=== PATIENT | female | born 1970 | race Caucasian/White ===

== ENCOUNTER → 2020-04-12 15:32 | Outpatient (CLI) | payer OTHER, SELFPAY ==
--- NOTE | 2020-04-12 15:49 | CT_ITS ---
STUDY: CT BRAIN WITHOUT CONTRAST REASON FOR EXAM: Female, 49 years old. MIGRAINE RADIATION DOSAGE (If Supplied By Facility): CTDIvol = ( 44.99 ) mGy, DLP = ( 779.24 ) mGycm TECHNIQUE: Transaxial CT imaging of the brain was performed without administration of intravenous contrast material. Individualized dose optimization techniques were used for this CT. COMPARISON: No relevant priors. FINDINGS: Normal soft tissue structures. Normal calvarium. Normal size ventricles and extra-axial spaces for the patient''s age. Normal white matter tracts of the cerebral hemispheres. Normal basal ganglia and thalami. Normal brainstem. Normal cerebellum. There is no intracranial hemorrhage. There are no findings of an acute ischemic infarction. Normal visualized paranasal sinuses. CT/Brain/Head without Contrast IMPRESSION: Normal unenhanced CT scan of the brain. Electronically Signed: Michael Jamison, at 16:28 EDT Tel , Service support ,
== END ==
PROVIDERS: Referring Provider Psychiatry & Neurology Neurology; Visit Provider Psychiatry & Neurology Neurology
DX: G43.009 Migraine without aura, not intractable, without status migrainosus (principal)
CPT/HCPCS: 70450

== ENCOUNTER 2021-12-20 12:01 | Outpatient (CLI) | payer OTHER, SELFPAY ==
--- NOTE | 2021-12-20 12:08 | MRI_ITS ---
HISTORY: bile duct dilation; please compare to u/s images from outside facility EXAMINATION: MR MRCP and MRI abdomen W/O Contrast TECHNIQUE: Multiplanar and multisequence MR images of the abdomen were obtained with MRCP sequence. Three-dimensional post-processing reconstructions were performed. IV Contrast dosage and agent: None COMPARISON: Right upper quadrant ultrasound 11/17/2021 FINDINGS: LIVER: No mass. Normal morphology. Mild proximal periportal smooth intrahepatic biliary dilatation. GALLBLADDER AND BILIARY TREE: No gallstones. No gallbladder distension or wall edema. The extrahepatic CBD measures 10 mm at the lópez hepatis with smooth distal tapering. No choledochal filling defect . Cystic duct insertion difficult to appreciate, possibly low inserting on series 12 image 10 PANCREAS: No mass. No pancreatic duct dilation. SPLEEN: Non-enlarged. ADRENAL GLANDS: No nodules. KIDNEYS: Normal renal size and position. No hydronephrosis. No mass. LYMPH NODES: No enlarged periportal or retroperitoneal lymph nodes. PERITONEUM: No ascites or fluid collection. VESSELS: Aorta is non-dilated. LOWER CHEST: No pleural effusion. MRI/MRCP Abdomen without Contrast IMPRESSION: Nonspecific intra-and extrahepatic biliary dilatation without choledocolithiasis or noncontrast evidence to suggest obstructing mass. Common bile duct narrows as it passes between the duodenum and pancreatic parenchyma into the pancreatic segment. This is of unknown significance. Correlate with biliary labs for evidence of obstruction. Possible low inserting cystic duct. at 0703 Reported and signed by: Cade Woodard MD Electronically Signed: Cade Woodard MD at 7:02 EST ,
== END 2021-12-20 23:59 | disposition home or self-care (01) ==
PROVIDERS: PCP Student in an Organized Health Care Education/Training Program; Referring Provider Internal Medicine Gastroenterology; Visit Provider Internal Medicine Gastroenterology
DX: K83.8 Other specified diseases of biliary tract (principal); K31.84 Gastroparesis; Z12.11 Encounter for screening for malignant neoplasm of colon
CPT/HCPCS: 74181

== ENCOUNTER 2022-01-02 11:18 | Day surgery (SDC) | payer OTHER, SELFPAY ==
--- NOTE | 2022-01-02 | COLBX_PTH ---
PATIENT: KORI SHEPHERD LOC: EN U#:[id number] AGE/SX: 51/F ROOM: RE01/02/[address]: Dr. Juan Curtis DO : 1970 BED: DIS: 01/02/2022 SPEC #: [id number] RECD: 01/03/22 10:04 STATUS: SANDEEP JORJE #: [id number] SALOME: 01/02/22 00:[address]: Juan Curtis DEPT: SURGICAL PATHOLOGY RECD BY: Dewayne Guy ENTERED: 01/03/22 10:06 SP TYPE: COLON BX OTHR DR: Dr. Migue Silveira DO Tissues: A - Duodenum, NOS B - Gastric mucous membrane C - Esophageal mucous membrane D - Sigmoid colon biopsy E - Ileum, NOS F - COLON BIOPSY Procedures: Surgery Specimen Level IV HEADER OPERATION: Colonoscopy, EGD ([facility]), biopsy, polyp PRE-OP DIAGNOSIS: Gastroparesis, screening, common bile duct dilatation TISSUE SUBMITTED: A ? Duodenum biopsy, B ? Antrum polyp biopsy, H. pylori and path, C ? Random esophagus, D ? Sigmoid polyp, E ? Terminal ileum biopsy, F ? Random colonic biopsy MICROSCOPIC DIAGNOSIS A. Duodenum, biopsy: Fragments of duodenal mucosa, no pathologic diagnosis. B. Antrum polyp, biopsy: Mild gastritis. See microscopic description and comment. C. Esophagus, biopsy: Fragments of squamous epithelium with changes consistent with gastroesophageal reflux disease, acute and chronic inflammation. D. Sigmoid polyp, biopsy: Tubular adenoma. E. Terminal ileum, biopsy: A fragment of small intestinal mucosa, no pathologic diagnosis. F. Colon, random biopsy: Fragments of colonic mucosa, no pathologic diagnosis. SJ:diandra 01/04/2022 COMMENT B. The results of immunohistochemistry for Helicobacter pylori will be reported separately ([id number]). MICROSCOPIC DESCRIPTION Slides are reviewed. B. The specimen shows fragments of gastric mucosa with chronic inflammatory cell infiltrates in the lamina propria consisting of lymphocytes and plasma cells, consistent with mild chronic gastritis. Focal mucosal congestion is noted. GROSS DESCRIPTION A - Received in fixative is one container labeled with the patient's name and designated duodenum biopsy. The specimen consists of multiple irregular fragments of light foster soft tissue that in aggregate measure 0.6 x 0.6 x 0.1 cm. The specimen is totally submitted in one cassette. B - Received in fixative is one container labeled with the patient's name and designated antrum biopsy. The specimen consists of two irregular fragments of light foster soft tissue that in aggregate measure 0.8 x 0.3 x 0.1 cm. The specimen is totally submitted in one cassette. C - Received in fixative is one container labeled with the patient's name and designated random esophagus. The specimen consists of multiple irregular fragments of light foster soft tissue that in aggregate measure 1 x 0.5 x 0.1 cm. The specimen is totally submitted in one cassette. D - Received in fixative is one container labeled with the patient's name and designated sigmoid polyp. The specimen consists of a piece of foster-pink polyp measuring 0.3 x 0.3 x 0.3 cm. The specimen is totally submitted in one cassette. E - Received in fixative is one container labeled with the patient's name and designated terminal ileum biopsy. The specimen consists of one irregular fragment of light foster soft tissue that measures 0.5 x 0.3 x 0.1 cm. The specimen is totally submitted in one cassette. F - Received in fixative is one container labeled with the patient's name and designated random colon biopsy. The specimen consists of multiple irregular fragments of light foster soft tissue that in aggregate measure 2 x 0.5 x 0.1 cm. The specimen is totally submitted in one cassette. / SJ:rg 01/03/2022 TC:1 CPT: 56774 x6
--- NOTE | 2022-01-02 11:44 | PCM.HP.BLA ---
History and Physical Date of Admission: 01/02/22 KORI SHEPHERD, is a 51 F who presents to the office today for nausea and abdominal pain. She has very poorly controlled diabetes mellitus on insulin at this time. Her last hemoglobin A1c was 11. Prior to that it was 10.4. She says her blood sugars usually range around 4 500. She took her blood sugar this morning and it was 350. 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 She says that she has stage III chronic kidney disease. She has no underlying heart disease that she knows off. She does take an aspirin on a daily basis. At this time she says that she has a funny taste in her mouth. She also says nothing taste the same. She says that she had a gastric emptying study in the past. However she does not know whether she was diagnosed with diabetic gastroparesis. She denies any chest pain or shortness of breath. She complains of a lot of nausea. She had an ultrasound of the right upper quadrant and it showed a common bile duct diameter size of 1 cm in the setting of a normal gallbladder. Reports eating food and becoming nauseous after a few bites; this has been going on for several years but has gotten worse in the last two months. Taking Prilosec 40mg QD for several years. She has difficulty with constipation with some times the duration being one-two weeks ED presentation recently due to pain. Xray of abdomen 08.28.21 for lower abdominal pain and constipation found nonobstructive bowel gas pattern. US abdomen 11.17.21 found common duct dilation at 10mm at lópez hepatis and remain dilated into distal portion. Remained of study without abnormality. Additional medical history includes DM II with neuropathy, hematuria, depression, bipolar disorder, HTN, osteoarthritis, thyromegaly, systolic ejection murmur. ROS Gastro GI: Positive for abdominal pain, bloating, change in bowel habits, nausea/dyspepsia and vomiting Exam Const General: cooperative and comfortable Nutritional Appearance: average body habitus and well nourished [facility] Head: normal to inspection Ears: hearing grossly normal bilaterally Nose: external nose normal Face and sinus: normal facial exam Mouth: oral mucosae normal Throat: posterior oropharynx normal Eyes General: appearance normal, both eyes and all related structures Neck Neck: normal visual inspection Chest Chest palpation & inspection: normal inspection of the chest and normal palpation of entire chest wall Resp Effort & Inspection: normal respiratory effort Auscultation: Bilateral: Clear to Auscultation Cardio Palpation: normal PMI Rate: regular rate Rhythm: regular rhythm GI Inspection: normal to inspection Auscultation: normal bowel sounds Percussion: normal to percussion Palpation: no hepatosplenomegaly Skin General: no rashes or lesions noted Neuro General: patient alert Extrem General: normal to inspection Psych Affect: normal affect Quality Reporting Tobacco Screening ([facility] 138) Smoking Status: Never smoker Assessment and Plan Assessment and Plan (1) Gastroparesis: Status: Acute Plan - Dr. Martinez Friend, DO: I suspect that she has gastroparesis due to the fact that she has a funny taste in the back of her mouth and she is not able to eat anything without vomiting. Also the differential diagnosis for the symptoms would be erosive esophagitis, Sol esophagitis, peptic ulcer disease, pyloric stenosis. I will give her a short course of Reglan therapy to take for couple weeks. The risk and benefits of Reglan therapy were explained. She agreed to septals risk. These carry same risk as her taking Compazine which she is taking currently for her nausea as they both cross developing barrier. I will also give her a scopolamine patch for her chronic nausea likely secondary to uncontrolled diabetes mellitus. We will perform an upper endoscopy evaluate upper GI tract. (2) Encounter for screening colonoscopy: Status: Acute Plan - Dr. Martinez Friend, DO: She has never undergone his colonoscopy. She will undergo screening colonoscopy. She was explained alternatives, risk, benefits including outstanding bleeding, infection, sepsis, perforation, need for emergent . She will have an ASA of 3. (3) Common bile duct dilatation: Status: Acute Plan - Dr. Martinez Friend, DO: The differential diagnosis for common bile duct dilation in the setting of a gallbladder would be a choledochal cyst, ampullary neoplasm, distal common bile duct stricture, chronic choledocholithiasis. We will order an MRCP with evaluation of the hepatobiliary system. Plan Details Other Medications: New: metoclopramide HCl (Reglan) 10 mg PO Q6H 14 days 56 tabs 0RF nausea and vomiting scopolamine base 1 patch transdermal Q72H 10 ea 0RF sucralfate (Carafate) 10 mL PO BID 200 mL 0RF I have re-examined the patient. There are no clinical changes since date of exam.
[2022-01-02 11:55] VITALS: BP 165/90; PULSE 72; RESP 16; TEMP 35.9; O2SAT 100; BMI 34.8
[2022-01-02] MEDS: Lactated Ringers 1,000 ML 15 ML IV (12:03)
[2022-01-02 12:16] LABS: Bedside Glucose 177 mg/dL (74-106)
--- NOTE | 2022-01-02 12:30 | IMM_PTH ---
PATIENT: KORI SHEPHERD LOC: EN U#:[id number] AGE/SX: 51/F ROOM: RE01/02/[address]: Dr. Juan Curtis DO : 1970 BED: DIS: 01/02/2022 SPEC #: [id number] RECD: 01/03/22 13:01 STATUS: SANDEEP RENasrin #: [id number] SALOME: 01/02/22 12:[address]: Juan Curtis DEPT: IMMUNOHISTOCHEMISTRY RECD BY: Paola Lewis ENTERED: 01/03/22 13:02 SP TYPE: IMMUNO OTHR DR: Dr. Migue Silveira DO Tissues: B - Stomach, NOS Procedures: H Pylori (initial) PHYSICIAN & INSTITUTION [place] [id number] SPECIMEN INFORMATION: Tissue Source: B ? Antrum biopsy Clinical Info: Gastroparesis, screening, common bile duct dilatation Specimen Number: [id number] CPT code: 94683 METHODOLOGY: Deparaffinized sections of prefer/formalin-fixed tissue or PAP/DQ stained slides are incubated with monoclonal/polyclonal antibodies/oligonucleotide probes. Localization is made via biotin free immunoperoxidase method. Appropriate controls are performed and reacted as expected. Results on target cell population are indicated in the following table: RESULTS: ANTIBODY / CLONE RESULT Block B H Pylori (polyclonal) negative These tests were developed and their performance characteristics determined by [facility]. They may not have been cleared or approved by the U.S. Food and Drug Administration. The FDA has determined that such clearance or approval is not necessary. INTERPRETATION: B. Antrum biopsy: Negative for Helicobacter pylori organisms. SJ:diandra 01/04/2022
--- NOTE | 2022-01-02 13:07 | OP.CCLET_ITS ---
07/25/2022 Migue Silveira Do Re : Upper GI endoscopy procedure for Janneth Sherwood Dear Jordana This procedure was performed on Sunday, January 02, 2022. My impressions and recommendations are as follows: Impressions : - LA Grade A reflux esophagitis. Biopsied. - Erythematous mucosa in the antrum and pylorus. Biopsied. - Normal second portion of the duodenum. Biopsied. Recommendations : - Discharge patient to home. - Resume previous diet. - Continue present medications. - Await pathology results. My findings are described in the full procedure note, which is enclosed. If I can be of further assistance, please feel free to contact me at . Sincerely, Juan Curtis DO 01/02/2022 1:06:40 PM This report has been signed electronically.
--- NOTE | 2022-01-02 13:07 | OP.EGD_ITS ---
Patient Name: Janneth Sherwood Procedure Date: 01/02/2022 12:40 PM Date of : 1970 Age: 51 Procedure: Upper GI endoscopy Indications: Functional Dyspepsia, Failure to respond to medical treatment Providers: Juan Curtis DO Referring MD: Juan Curtis DO Medicines: See the Anesthesia note for documentation of the administered medications Patient Profile: This is a 51 year old female. Refer to note in patient chart for documentation of history and physical. Patient has symptoms of acute dyspepsia. Complications: No immediate complications. Procedure: Pre-Anesthesia Assessment: - Prior to the procedure, a History and Physical was performed, and patient medications and allergies were reviewed. The risks and benefits of the procedure and the sedation options and risks were discussed with the patient. All questions were answered and informed consent was obtained. Patient identification and proposed procedure were verified by the physician in the pre-procedure area. Mental Status Examination: alert and oriented. Airway Examination: normal oropharyngeal airway and neck mobility. Respiratory Examination: clear to auscultation. CV Examination: normal. Prophylactic Antibiotics: The patient does not require prophylactic antibiotics. Prior Anticoagulants: The patient has taken no previous anticoagulant or antiplatelet agents. ASA Grade Assessment: II - A patient with mild systemic disease. After reviewing the risks and benefits, the patient was deemed in satisfactory condition to undergo the procedure. The anesthesia plan was to use moderate sedation / analgesia (conscious sedation). Immediately prior to administration of medications, the patient was re-assessed for adequacy to receive sedatives. The heart rate, respiratory rate, oxygen saturations, blood pressure, adequacy of pulmonary ventilation, and response to care were monitored throughout the procedure. The physical status of the patient was re-assessed after the procedure. After obtaining informed consent, the endoscope was passed under direct vision. Throughout the procedure, the patient's blood pressure, pulse, and oxygen saturations were monitored continuously. The Colonoscope was introduced through the mouth, and advanced to the second part of duodenum. The upper GI endoscopy was accomplished without difficulty. The patient tolerated the procedure well. Moderate Sedation: Moderate (conscious) sedation was administered by the endoscopy nurse and supervised by the endoscopist. The patient's oxygen saturation, heart rate, blood pressure and response to care were monitored. Total physician intraservice time was 15 minutes. Scope In: 12:52:11 PM Scope Out: 1:01:01 PM Total Procedure Duration Time 0 hours 8 minutes 50 seconds Findings: LA Grade A (one or more mucosal breaks less than 5 mm, not extending between tops of 2 mucosal folds) esophagitis with no bleeding was found 34 to 35 cm from the incisors. Biopsies were taken with a cold forceps for histology. Verification of patient identification for the specimen was done. Estimated blood loss was minimal. Localized mildly erythematous mucosa without bleeding was found in the gastric antrum and at the pylorus. Biopsies were taken with a cold forceps for histology. The second portion of the duodenum was normal. Biopsies were taken with a cold forceps for histology. Verification of patient identification for the specimen was done. Estimated blood loss was minimal. Impression: - LA Grade A reflux esophagitis. Biopsied. - Erythematous mucosa in the antrum and pylorus. Biopsied. - Normal second portion of the duodenum. Biopsied. Recommendation: - Discharge patient to home. - Resume previous diet. - Continue present medications. - Await pathology results. Procedure Code(s): --- Professional --- 95649, Esophagogastroduodenoscopy, flexible, transoral; with biopsy, single or multiple 64202, 59, Moderate sedation services provided by the same physician or other qualified health coronary care unit nurse performing the diagnostic or therapeutic service that the sedation supports, requiring the presence of an independent trained observer to assist in the monitoring of the patient's level of consciousness and physiological status; initial 15 minutes of intraservice time, patient age 5 years or older CPT copyright 2017 [employer]. All rights reserved. The codes documented in this report are preliminary and upon director of manufacturing operations review may be revised to meet current compliance requirements. Juan Curtis DO 01/02/2022 1:06:40 PM This report has been signed electronically. Number of Addenda: 1 Note Initiated On: 01/02/2022 12:40 PM Addendum Number: 1 Addendum Date: 07/25/2022 6:35:24 AM MAC was used as sedation for this procedure. Juan Curtis DO 07/25/2022 6:35:29 AM This report has been signed electronically.
[2022-01-02 13:30] VITALS: BP 156/95; BP 165/90; PULSE 72; RESP 16; TEMP 36; O2SAT 100
[2022-01-02 13:35] VITALS: BP 165/90; BP 170/94; PULSE 69; RESP 16; O2SAT 100
--- NOTE | 2022-01-02 13:39 | OP.CCLET_ITS ---
07/25/2022 Migue Silveira Do Re : Colonoscopy procedure for Janneth Sherwood Dear Jordana This procedure was performed on Sunday, January 02, 2022. My impressions and recommendations are as follows: Impressions : - One 5 mm polyp in the sigmoid colon, removed with a hot snare. Resected and retrieved. - Congested mucosa in the recto-sigmoid colon, in the sigmoid colon, at the splenic flexure, in the transverse colon and in the ascending colon. Biopsied. - The examined portion of the ileum was normal. Biopsied. Recommendations : - Discharge patient to home. - Resume previous diet. - Continue present medications. - Await pathology results. - Repeat colonoscopy in 5 years for surveillance. - Return to GI office. My findings are described in the full procedure note, which is enclosed. If I can be of further assistance, please feel free to contact me at . Sincerely, Juan Curtis, 01/02/2022 1:38:20 PM This report has been signed electronically.
--- NOTE | 2022-01-02 13:39 | OP.COLON_ITS ---
Patient Name: Janneth Sherwood Procedure Date: 01/02/2022 1:03 PM Date of : 1970 Age: 51 Procedure: Colonoscopy Indications: Screening for colorectal malignant neoplasm Providers: Juan Curtis DO Referring MD: Juan Curtis DO Medicines: See the Anesthesia note for documentation of the administered medications Patient Profile: This is a 51 year old female. Refer to note in patient chart for documentation of history and physical. Patient has symptoms of acute dyspepsia. Last Colonoscopy: none. The patient's first colonoscopy is today. Complications: No immediate complications. Procedure: Pre-Anesthesia Assessment: - Prior to the procedure, a History and Physical was performed, and patient medications and allergies were reviewed. The risks and benefits of the procedure and the sedation options and risks were discussed with the patient. All questions were answered and informed consent was obtained. Patient identification and proposed procedure were verified by the physician in the pre-procedure area. Mental Status Examination: alert and oriented. Airway Examination: normal oropharyngeal airway and neck mobility. Respiratory Examination: clear to auscultation. CV Examination: normal. Prophylactic Antibiotics: The patient does not require prophylactic antibiotics. Prior Anticoagulants: The patient has taken no previous anticoagulant or antiplatelet agents. ASA Grade Assessment: II - A patient with mild systemic disease. After reviewing the risks and benefits, the patient was deemed in satisfactory condition to undergo the procedure. The anesthesia plan was to use moderate sedation / analgesia (conscious sedation). Immediately prior to administration of medications, the patient was re-assessed for adequacy to receive sedatives. The heart rate, respiratory rate, oxygen saturations, blood pressure, adequacy of pulmonary ventilation, and response to care were monitored throughout the procedure. The physical status of the patient was re-assessed after the procedure. After I obtained informed consent, the scope was passed under direct vision. Throughout the procedure, the patient's blood pressure, pulse, and oxygen saturations were monitored continuously. The Colonoscope was introduced through the anus and advanced to the terminal ileum. The terminal ileum, ileocecal valve, appendiceal orifice, and rectum were photographed. Moderate Sedation: Moderate (conscious) sedation was administered by the endoscopy nurse and supervised by the endoscopist. The patient's oxygen saturation, heart rate, blood pressure and response to care were monitored. Total physician intraservice time was 15 minutes. Scope In: 1:09:02 PM Scope Withdrawal Time 0 hours 7 minutes 35 seconds Scope Out: 1:25:56 PM Total Procedure Duration Time 0 hours 16 minutes 54 seconds Findings: A 5 mm polyp was found in the sigmoid colon. The polyp was sessile. The polyp was removed with a hot snare. Resection and retrieval were complete. Verification of patient identification for the specimen was done. Estimated blood loss was minimal. An area of mildly congested mucosa was found in the recto-sigmoid colon, in the sigmoid colon, at the splenic flexure, in the transverse colon and in the ascending colon. Biopsies were taken with a cold forceps for histology. Verification of patient identification for the specimen was done. Estimated blood loss was minimal. The terminal ileum appeared normal. Biopsies were taken with a cold forceps for histology. Verification of patient identification for the specimen was done. Estimated blood loss was minimal. Impression: - One 5 mm polyp in the sigmoid colon, removed with a hot snare. Resected and retrieved. - Congested mucosa in the recto-sigmoid colon, in the sigmoid colon, at the splenic flexure, in the transverse colon and in the ascending colon. Biopsied. - The examined portion of the ileum was normal. Biopsied. Recommendation: - Discharge patient to home. - Resume previous diet. - Continue present medications. - Await pathology results. - Repeat colonoscopy in 5 years for surveillance. - Return to GI office. Procedure Code(s): --- Professional --- 93629, Colonoscopy, flexible; with removal of tumor(s), polyp(s), or other lesion(s) by snare technique 14170, 59, Colonoscopy, flexible; with biopsy, single or multiple 76732, 59, Moderate sedation services provided by the same physician or other qualified health care mgr performing the diagnostic or therapeutic service that the sedation supports, requiring the presence of an independent trained observer to assist in the monitoring of the patient's level of consciousness and physiological status; initial 15 minutes of intraservice time, patient age 5 years or older CPT copyright 2017 [employer]. All rights reserved. The codes documented in this report are preliminary and upon mechanic senior review may be revised to meet current compliance requirements. Juan Curtis DO 01/02/2022 1:38:20 PM This report has been signed electronically. Number of Addenda: 1 Note Initiated On: 01/02/2022 1:03 PM Addendum Number: 1 Addendum Date: 07/25/2022 6:35:37 AM MAC was used as sedation for this procedure. Juan Curtis DO 07/25/2022 6:35:43 AM This report has been signed electronically.
[2022-01-02 13:40] VITALS: BP 117/99; BP 165/90; PULSE 70; RESP 16; O2SAT 100
[2022-01-02 13:45] VITALS: BP 165/90; BP 176/91; PULSE 68; RESP 16; TEMP 36.1; O2SAT 100
[2022-01-02 13:58] VITALS: BP 165/90
== END 2022-01-02 23:59 | disposition home or self-care (01) ==
LOC: EN 11:21 → AC 11:22
PROVIDERS: PCP Student in an Organized Health Care Education/Training Program; Referring Provider Student in an Organized Health Care Education/Training Program; Visit Provider Internal Medicine Gastroenterology
PROC: 0DJD8ZZ Inspection of Lower Intestinal Tract, Via Natural or Artificial Opening Endoscopic (ICD-10-PCS; CPT 45378; principal; 2022-01-02 12:25)
DX: Z12.11 Encounter for screening for malignant neoplasm of colon (principal); F31.9 Bipolar disorder, unspecified; E11.42 Type 2 diabetes mellitus with diabetic polyneuropathy; E11.21 Type 2 diabetes mellitus with diabetic nephropathy; E11.319 Type 2 diabetes mellitus with unspecified diabetic retinopathy without macular edema; E11.43 Type 2 diabetes mellitus with diabetic autonomic (poly)neuropathy; I48.91 Unspecified atrial fibrillation; Z79.4 Long term (current) use of insulin; N18.30 Chronic kidney disease, stage 3 unspecified; D12.5 Benign neoplasm of sigmoid colon; K29.70 Gastritis, unspecified, without bleeding; K21.00 Gastro-esophageal reflux disease with esophagitis, without bleeding; K30 Functional dyspepsia; I12.9 Hypertensive chronic kidney disease with stage 1 through stage 4 chronic kidney disease, or unspecified chronic kidney disease; D63.1 Anemia in chronic kidney disease; K76.89 Other specified diseases of liver; E78.2 Mixed hyperlipidemia; F41.9 Anxiety disorder, unspecified; E66.9 Obesity, unspecified; K31.84 Gastroparesis; K83.8 Other specified diseases of biliary tract; R01.1 Cardiac murmur, unspecified; Z68.34 Body mass index [BMI] 34.0-34.9, adult; Z79.82 Long term (current) use of aspirin; Z79.899 Other long term (current) drug therapy; Z86.16 Personal history of COVID-19; Z20.822 Contact with and (suspected) exposure to COVID-19
CPT/HCPCS: 45380; 45385; 43239; 82962; 87426; 88305; 88342; C9803; J7120; J2405

== ENCOUNTER 2022-03-01 16:27 | Observation (INO) | payer OTHER, SELFPAY ==
--- NOTE | 2022-02-28 08:37 | EKG12_ITS ---
Test Reason : PREOP Blood Pressure : / mmHG Vent. Rate : 080 BPM Atrial Rate : 080 BPM P-R Int : 188 ms QRS Dur : 088 ms QT Int : 382 ms P-R-T Axes : 027 -16 035 degrees QTc Int : 440 ms Normal sinus rhythm Normal ECG Confirmed by ABUNDIO CORDOVA, VANDANA ([id number]), avid editor PONCHO YBARRA ([id number]) on 02/28/2022 1:48:27 PM Referred By: JACINDA Confirmed By:VANDANA DEL CASTILLO MD
[2022-03-01] VITALS (19 sets, daily range): BP systolic 135–183; BP diastolic 82–124; PULSE 75–87; RESP 15–19; TEMP 36.3–37.1; O2SAT 93–100; BMI 33.5
--- NOTE | 2022-03-01 | FLU_PTH ---
PATIENT: KORI SHEPHERD LOC: MS3 U#:[id number] AGE/SX: 51/F ROOM: [facility] [place] RE03/01/[address]: Dr. Juan Curtis DO : 1970 BED: 1 DIS: 03/02/2022 SPEC #: [id number] RECD: 03/01/22 13:58 STATUS: SANDEEP REQ #: [id number] SALOME: 03/01/22 00:[address]: Juan Curtis DEPT: CYTOLOGY RECD BY: Dewayne Guy ENTERED: 03/02/22 10:38 SP TYPE: Fluid OTHR DR: MD Dr. Migue Dick DO Tissues: A - Biliary tract, NOS B - Biliary tract, NOS Procedures: Special Stain Group II Surgery Specimen Level IV Cytospin Fluid HEADER OPERATION: ERCP PRE-OP DIAGNOSIS: Gastroparesis TISSUE SUBMITTED: A - Bile and pancreatic duct brush, B - Bile and pancreatic duct x2 slides DIAGNOSIS CYTOLOGY A. Bile and pancreatic duct brushings (cytospin and cell block): Negative for malignant cells. B. Bile and pancreatic duct brushings (smears): Negative for malignant cells. AM:diandra 03/05/2022 CYTOLOGY STUDY Slides are reviewed. CYTOLOGY GROSS A - Received is a metallic endoscopic cytobrush with adherent minute fragments of foster-red tissue brush in 2 ml of clear red fluid and labeled with the patient's name and and designated per the requisition as brush. The material is dislodged from the brush and submitted for cytology preparation including cell block. B - Received are two smears labeled with the patient's name and designated per the requisition as bile and pancreatic duct. Submitted for staining. / diandra 03/02/2022 TC:[facility]: [id number], [id number] ADDENDUM ADDENDUM ADDENDUM ADDENDUM ADDENDUM ADDENDUM ADDENDUM ADDENDUM 04/09/2022 09:45 ADDENDUM 04/09/2022 09:45 ADDENDUM 04/09/2022 09:45 ADDENDUM 04/09/2022 09:45 ADDENDUM 04/09/2022 09:45 IMMUNOHISTOCHEMISTRY REPORT FROM [facility] RESULTS: Antibody Clone Description Results CA19.9 121SLE GI, ovary, lung tumors Negative Please see complete report in e-chart or EMR
[2022-03-01] MEDS: Lactated Ringers 1,000 ML 15 ML IV (11:29)
--- NOTE | 2022-03-01 11:38 | PCM.HP.BLA ---
History and Physical Date of Admission: 03/01/22 Details: KORI SHEPHERD, is a 51 F who presents to the office today for discussion of recent EGD and colonoscopy results. She presented for chronic nausea and abdominal pain. She is a poorly controlled diabetic, gastroparesis is suspected. No relief of nausea with scopolamine patch or ondansetron. Nausea increases w/ eating, gets bad taste in mouth. Dr Ever originally prescribed metoclopramide but she doesn't recall taking it. She requests a refill of liquid sucralfate. She takes miralax BID to manage constipation. She is scheduled for ERCP on March 01 for biliary dilatation 01/02/22 EGD and Colonoscopy: Impression: - LA Grade A reflux esophagitis. Biopsied. - Erythematous mucosa in the antrum and pylorus. Biopsied. - Normal second portion of the duodenum. Biopsied. Impression: - One 5 mm polyp in the sigmoid colon, removed with a hot snare. Resected and retrieved. - Congested mucosa in the recto-sigmoid colon, in the sigmoid colon, at the splenic flexure, in the transverse colon and in the ascending colon. Biopsied. - The examined portion of the ileum was normal. Biopsied. MICROSCOPIC DIAGNOSIS A. Duodenum, biopsy:Fragments of duodenal mucosa, no pathologic diagnosis. B. Antrum polyp, biopsy:Mild gastritis.See microscopic description and comment. Lymphocytic C. Esophagus, biopsy:Fragments of squamous epithelium with changes consistent with gastroesophageal reflux disease, acute and chronic inflammation. D. Sigmoid polyp, biopsy:Tubular adenoma. E. Terminal ileum, biopsy:A fragment of small intestinal mucosa, no pathologic diagnosis. F. Colon, random biopsy:Fragments of colonic mucosa, no pathologic diagnosis Negative H pylori MRCP IMPRESSION: Nonspecific intra-and extrahepatic biliary dilatation without choledocolithiasis or noncontrast evidence to suggest obstructing mass. Common bile duct narrows as it passes between the duodenum and pancreatic parenchyma into the pancreatic segment. This is of unknown significance. Correlate with biliary labs for evidence of obstruction. Possible low inserting cystic duct. Xray of abdomen 08.28.21 for lower abdominal pain and constipation found nonobstructive bowel gas pattern. US abdomen 11.17.21 found common duct dilation at 10mm at lópez hepatis and remain dilated into distal portion. Remained of study without abnormality ROS Const Constitutional: Positive for weight change (loss) Gastro GI: Positive for nausea/dyspepsia Psych Psychiatric: Positive for anxiety and Positive for depression Endo Endocrine: Positive for weight change (loss) Exam Const General: well developed and other (argumentative) Quality Reporting Tobacco Screening ([facility] 138) Smoking Status: Never smoker Assessment and Plan Assessment and Plan (1) Gastroparesis: Status: Acute (2) Common bile duct dilatation: Status: Acute (3) Diabetes: Status: Chronic Qualifiers: Diabetes mellitus type: type 2 Diabetes mellitus 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 We reviewed her EGD and colonoscopy results, and the biopsy results. Repeat colonoscopy in 5 yrs for tubular adenoma. Treat gastritis with sucralfate and PPI. Rx metoclopramide for gastroparesis. Case reviewed w/ Dr Curtis. ERCP on March 01, f/u with Dr Curtis in office approx 2 wks later. Plan Details Other Medications: New: metoclopramide HCl administer 30 minutes before meals 5 mg PO QAC 90 tabs 0RF Refilled: sucralfate (Carafate) 10 mL PO BID 1,000 mL 0RF I have re-examined the patient. There are no clinical changes since date of exam.
[2022-03-01 11:50] LABS: Bedside Glucose 117 mg/dL (74-106)
--- NOTE | 2022-03-01 12:00 | RAD_ITS ---
STUDY: ERCP. REASON FOR EXAM: Female, 51 years old. PAIN FLUOROSCOPY TIME (if supplied): ( 2 minutes and 26 seconds. ) minutes/seconds. 16 images were submitted. TECHNIQUE: The home inspector performed an ERCP. COMPARISON: None. FINDINGS: There is dilatation of the common bile duct. A biliary stent was placed. RAD/ERCP Biliary Only IMPRESSION: Dilated common bile duct. Placement of a biliary stent. Electronically Signed: Willian Garduno MD at 15:37 EDT ,
--- NOTE | 2022-03-01 13:31 | OP.ERCP_ITS ---
Patient Name: Janneth Sherwood Procedure Date: 03/01/2022 12:06 PM Date of : 1970 Age: 51 Procedure: ERCP Indications: Bile duct stricture Providers: Juan Curtis DO Medicines: General Anesthesia Patient Profile: This is a 51 year old female. Refer to note in patient chart for documentation of history and physical. Patient has symptoms of chronic abdominal cramping. This patient has no history of previous ERCP. She is status post laparoscopic cholecystectomy within the past several years. Complications: No immediate complications. Procedure: Pre-Anesthesia Assessment: - Prior to the procedure, a History and Physical was performed, and patient medications and allergies were reviewed. The patient is competent. The risks and benefits of the procedure and the sedation options and risks were discussed with the patient. All questions were answered and informed consent was obtained. Patient identification and proposed procedure were verified by the physician in the pre-procedure area. Mental Status Examination: alert and oriented. Airway Examination: normal oropharyngeal airway and neck mobility. Respiratory Examination: clear to auscultation. CV Examination: normal. Prophylactic Antibiotics: The patient does not require prophylactic antibiotics. Prior Anticoagulants: The patient has taken no previous anticoagulant or antiplatelet agents. After reviewing the risks and benefits, the patient was deemed in satisfactory condition to undergo the procedure. The anesthesia plan was to use moderate sedation / analgesia (conscious sedation). Immediately prior to administration of medications, the patient was re-assessed for adequacy to receive sedatives. The heart rate, respiratory rate, oxygen saturations, blood pressure, adequacy of pulmonary ventilation, and response to care were monitored throughout the procedure. The physical status of the patient was re-assessed after the procedure. After obtaining informed consent, the scope was passed under direct vision. Throughout the procedure, the patient's blood pressure, pulse, and oxygen saturations were monitored continuously. The duodenoscope was introduced through the mouth, and advanced to the duodenum and used to inject contrast into the bile duct and ventral pancreatic duct. The ERCP was accomplished without difficulty. The patient tolerated the procedure well. Scope In: 12:40:14 PM Scope Out: 1:17:04 PM Total Procedure Duration Time 0 hours 36 minutes 50 seconds Findings: The supervisor histology film was normal. The esophagus was successfully intubated under direct vision. The scope was advanced to a normal major papilla in the descending duodenum without detailed examination of the pharynx, larynx and associated structures, and upper GI tract. The upper GI tract was grossly normal. The bile duct was deeply cannulated. Contrast was injected. Opacification of the entire biliary tree except for the cystic duct and gallbladder and main bile duct was successful. The maximum diameter of the ducts was 10 mm. The lower third of the main bile duct contained a single localized stenosis 6 mm in length. The entire opacified area was diffusely dilated, uncertain significance. The largest diameter was 12 mm. A cholecystectomy had been performed. 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 Opacification of the main bile duct was successful. The maximum diameter of the ducts was 9 mm. A straight Roadrunner wire was passed into the biliary tree. A 5 mm biliary sphincterotomy was made with a traction (standard) sphincterotome using ERBE electrocautery. There was no post-sphincterotomy bleeding. The biliary tree was swept with a 15 mm balloon starting at the bifurcation. Sludge was swept from the duct. Dilation of the common bile duct with a 6-7-8 mm balloon dilator was successful. One 10 Fr by 7 cm temporary stent was placed 5 cm into the common bile duct. Bile flowed through the stent. The stent was in good position. The ventral pancreatic duct was deeply cannulated with the short-nosed traction sphincterotome. Contrast was injected. Opacification of the entire pancreatic ductal system was successful. The maximum diameter of the ducts was 3 mm. A fistula originating from the ventral pancreatic duct in the head of the pancreas was identified. One 5 Fr by 3 cm stent with a single internal flap was placed 5 cm into the ventral pancreatic duct. Fluid flowed through the stent. The stent was in good position. The lower third of the main bile duct was sampled with a cytology brush for cytology. Impression: - A single localized biliary stricture was found in the lower third of the main bile duct. The stricture was indeterminate. - The biliary system was dilated, uncertain significance. 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 - The patient has had a cholecystectomy. - A biliary sphincterotomy was performed. - The biliary tree was swept and sludge was found. - Common bile duct was successfully dilated. - One temporary stent was placed into the common bile duct. Procedure Code(s): --- Professional --- 45157, Endoscopic retrograde cholangiopancreatography (ERCP); with placement of endoscopic stent into biliary or pancreatic duct, including pre- and post-dilation and guide wire passage, when performed, including sphincterotomy, when performed, each stent [id number], 59, Endoscopic retrograde cholangiopancreatography (ERCP); with placement of endoscopic stent into biliary or pancreatic duct, including pre- and post-dilation and guide wire passage, when performed, including sphincterotomy, when performed, each stent [id number], Endoscopic retrograde cholangiopancreatography (ERCP); with removal of calculi/debris from biliary/pancreatic duct(s) CPT copyright 2017 [employer]. All rights reserved. The codes documented in this report are preliminary and upon reports developer review may be revised to meet current compliance requirements. Juan Curtis DO 03/01/2022 1:31:04 PM This report has been signed electronically. Number of Addenda: 0 Note Initiated On: 03/01/2022 12:06 PM
--- NOTE | 2022-03-01 13:31 | OP.CCLET_ITS ---
03/01/2022 Migue Silveira Do Re : ERCP procedure for Janneth Sherwood Dear Jordana This procedure was performed on February. My impressions and recommendations are as follows: Impressions : - A single localized biliary stricture was found in the lower third of the main bile duct. The stricture was indeterminate. - The biliary system was dilated, uncertain significance. 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 - The patient has had a cholecystectomy. - A biliary sphincterotomy was performed. - The biliary tree was swept and sludge was found. - Common bile duct was successfully dilated. - One temporary stent was placed into the common bile duct. Recommendations : My findings are described in the full procedure note, which is enclosed. If I can be of further assistance, please feel free to contact me at . Sincerely, Juan Curtis DO 03/01/2022 1:31:04 PM This report has been signed electronically.
[2022-03-01] MEDS: Lactated Ringers 1,000 ML 999 ML IV ×2 (14:20→16:18)
[2022-03-01] MEDS: HYDROmorphone 1 MG/ML Syringe IV ×3 (14:21→20:42)
[2022-03-01] MEDS: levoFLOXacin IV 500 MG/100 ML BAG 100 MG IV (15:16)
--- NOTE | 2022-03-01 16:36 | PCM.HP.STD ---
HPI - General General Date of Admission: 03/01/22 Date of Service: 03/01/22 Chief Complaint: Abdominal pain HPI Narrative KORI SHEPHERD, is a 51 F with multiple comorbidities including diabetes mellitus type 2 with gastroparesis, who underwent ERCP by Dr. Curtis on 03/01/2022. 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 Patient had sphincterectomy performed, dilatation of the common bile duct and a temporary stent placed into the common bile duct. Patient was found to have significant abdominal pain following the procedure decision was therefore made to admit patient for observation [facility] Medical History Alcohol use Allergies Anemia Anxiety Arthritis Atrial fibrillation Back problem COVID Depression Dietary restriction Excessive bleeding Gastritis GERD (gastroesophageal reflux disease) Heart murmur History of cardiac murmur History of edema History of renal disease HTN (hypertension) Hyperlipidemia Insulin dependent diabetes mellitus Leg cramps Liver disease Migraine Neuropathy Non-smoker Shortness of breath on exertion Sleep apnea Tubular adenoma of colon Vitamin deficiency Wears glasses Wears partial dentures Home Medications aspirin 81 mg tablet,delayed release 81 mg PO DAILY 07/11/20 [History Last Taken 02/28/22] insulin aspart U-100 100 unit/mL (3 mL) subcutaneous pen 9 unit SC TID ml 07/11/20 [History Last Taken 02/28/22] metoprolol tartrate 25 mg tablet 25 mg PO BID 07/11/20 [History Last Taken 03/01/22] multivitamin 1 tab PO DAILY 07/11/20 [History Last Taken 02/28/22] omega-3 fatty acids 1,000 mg capsule 1,000 mg PO DAILY 07/11/20 [History Last Taken 02/28/22] omeprazole 20 mg-sodium bicarbonate 1.1 gram capsule 1 cap PO DAILY 07/11/20 [History Last Taken 03/01/22] pravastatin 40 mg tablet 40 mg PO DAILY 07/11/20 [History Last Taken 02/28/22] trazodone 150 mg tablet 200 mg PO QHS 07/11/20 [History Last Taken 02/28/22] tizanidine 2 mg tablet 1 tab PO DAILY 01/06/21 [History Last Taken 02/28/22] ondansetron 4 mg disintegrating tablet 4 mg PO Q8H PRN #90 tab 12/27/21 [Rx Last Taken 02/28/22] dulaglutide [Trulicity] 3 mg SUBCUT QWEEK 12/28/21 [History Last Taken 02/28/22] fremanezumab-vfrm [Ajovy Autoinjector] 225 mg SUBCUT QMONTH 12/28/21 [History Last Taken 02/28/22] insulin glargine [Lantus U-100 Insulin] 42 unit SUBCUT QPM 12/28/21 [History Last Taken 03/01/22] metoclopramide HCl 5 mg tablet 5 mg PO QAC #90 tab 01/17/22 [Rx Last Taken 02/28/22] sucralfate 100 mg/mL oral suspension 10 ml PO BID #1000 ml 01/17/22 [Rx Last Taken 02/28/22] linaclotide 145 mcg capsule 145 mcg PO DAILY #30 cap 01/24/22 [Rx Last Taken 02/28/22] scopolamine base 1 mg over 3 days transdermal patch 1 patch TRANSDERMAL Q72H #10 ea 02/12/22 [Rx Last Taken 02/28/22] Allergy/AdvReac Type Severity Reaction Status Date / Time lactase [From Dairy Aid] Allergy Severe diarrhea Verified 02/26/22 12:30 codeine Allergy Intermediate mental Verified 02/26/22 12:30 status diphenhydramine Allergy Intermediate mental Verified 02/26/22 12:30 [From Benadryl Allergy] status quetiapine [From Seroquel] Allergy Intermediate Unknown Verified 02/26/22 12:30 Family History Other Arthritis Cancer Depression Diabetes Kidney disease Surgical History History of esophagogastroduodenoscopy (EGD) History of hysterectomy Hx of colonoscopy Social History Smoking Status: Never smoker alcohol intake: current ROS ROS Narrative GENERAL: denies fever, chills, night sweats, HEENT: denies headache, sinus congestion, RESPIRATORY: denies cough, sputum production, CARDIAC: denies chest pain, palpitations, orthopnea, GASTROINTESTINAL: abdominal pain, nausea, GENITOURINARY: denies dysuria, urgency, frequency, EXTREMITY: denies swelling MUSCULOSKELETAL: denies current joint pain or tenderness NEUROLOGIC: denies focal numbness, weakness, tingling HEMATOLOGIC: denies easy bruising and/or hemorrhage INTEGUMENT: denies rashes PSYCHIATRIC: denies suicidal or homicidal ideation Vital Signs Vital Signs Vital Signs: 03/01/22 11:19 03/01/22 13:35 03/01/22 13:38 Temperature 97.3 F L 97.6 F L Temperature Source Temporal Temporal Pulse Rate 79 77 Pulse Strength Normal (2+) Respiratory Rate 16 15 Respiratory Pattern Normal Normal Blood Pressure 153/98 H 135/82 H Blood Pressure Mean 116 99 Blood Pressure Source Monitor Monitor Blood Pressure Position Semi-Fowlers Semi-Fowlers Blood Pressure Location Left Arm Left Arm Baseline BP 153/98 Pulse Ox 100 93 Oxygen Delivery Method Room Air Room Air 03/01/22 13:45 03/01/22 14:00 03/01/22 14:15 Temperature Temperature Source Pulse Rate 81 75 77 Pulse Strength Respiratory Rate 19 H 16 15 Respiratory Pattern Blood Pressure 153/124 H 159/95 H 160/96 H Blood Pressure Mean 133 116 117 Blood Pressure Source Monitor Monitor Monitor Blood Pressure Position Semi-Fowlers Semi-Fowlers Semi-Fowlers Blood Pressure Location Right Arm Right Arm Right Arm Baseline BP 153/98 153/98 153/98 Pulse Ox 100 100 100 Oxygen Delivery Method Room Air Room Air Room Air 03/01/22 14:30 03/01/22 14:45 03/01/22 15:00 Temperature Temperature Source Pulse Rate 79 78 75 Pulse Strength Respiratory Rate 16 16 16 Respiratory Pattern Blood Pressure 174/97 H 154/99 H 175/105 H Blood Pressure Mean 122 117 128 Blood Pressure Source Monitor Monitor Monitor Blood Pressure Position Semi-Fowlers Semi-Fowlers Semi-Fowlers Blood Pressure Location Left Arm Left Arm Left Arm Baseline BP 153/98 153/98 153/98 Pulse Ox 99 99 98 Oxygen Delivery Method Room Air Room Air Room Air 03/01/22 15:15 03/01/22 15:30 03/01/22 15:45 Temperature Temperature Source Pulse Rate 79 80 81 Pulse Strength Respiratory Rate 16 16 16 Respiratory Pattern Blood Pressure 175/103 H 173/106 H 183/107 H Blood Pressure Mean 127 128 132 Blood Pressure Source Monitor Monitor Monitor Blood Pressure Position Semi-Fowlers Semi-Fowlers Semi-Fowlers Blood Pressure Location Left Arm Left Arm Left Arm Baseline BP 153/98 153/98 153/98 Pulse Ox 99 99 98 Oxygen Delivery Method Room Air Room Air 03/01/22 16:00 03/01/22 16:15 Temperature Temperature Source Pulse Rate 87 86 Pulse Strength Respiratory Rate 16 16 Respiratory Pattern Blood Pressure 171/105 H 178/106 H Blood Pressure Mean 127 130 Blood Pressure Source Monitor Monitor Blood Pressure Position Semi-Fowlers Semi-Fowlers Blood Pressure Location Left Arm Left Arm Baseline BP 153/98 153/98 Pulse Ox 98 99 Oxygen Delivery Method Room Air Room Air Weight Weight: 109 kg Body Mass Index (BMI) 33.5 Physical Exam Narrative GENERAL: cooperative HEENT: Atraumatic; EYES; Anicteric, Normal Conjunctiva NECK; supple, normal thyroid, RESPIRATORY: Diminished to auscultation CARDIOVASCULAR: Regular S1 S2, GI: soft, normoactive bowel sounds, : No Renal angle tenderness; EXTREMITIES: No edema, no clubbing, MUSCULOSKELETAL: no muscle wasting NEURO: Awake; no lateralizing signs. SKIN: No Rash PSYCH; Flat affect Results Lab / Micro Data Labs: Laboratory Results - last 24 hr 03/01/22 11:15: POC Glucose 117 H Radiology Impression ERCP X-Ray 03/01/22 12:00 IMPRESSION: Dilated common bile duct. Placement of a biliary stent. Electronically Signed: Willian Garduno MD at 15:37 EDT , Assessment & Plan Assessment/Plan (1) Common bile duct dilatation: PLAN: KORI SHEPHERD, is a 51 F with multiple comorbidities including diabetes mellitus type 2 with gastroparesis, who underwent ERCP by Dr. Curtis on 03/01/2022. 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 Patient had sphincterectomy performed, dilatation of the common bile duct and a temporary stent placed into the common bile duct. Patient was found to have significant abdominal pain following the procedure decision was therefore made to admit patient for observation 1. Status post ERCP ? Procedure was performed by Dr. Curtis on 03/01/2022. 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 Patient had sphincterectomy performed, dilatation of the common bile duct and a temporary stent placed into the common bile duct 2. Diabetes mellitus type 2 ? Poorly controlled with complications including gastroparesis and diabetic nephropathy. Patient hemoglobin being A1c obtained on 01/06/2021 was 11 point 4 repeat ordered 3. Chronic kidney disease stage III ? Per history ordered BMP for follow-up 4. Gastroparesis ? Patient is on Reglan before meals and at bedtime did continue 5. Gastritis ? Patient is on PPI continue 6. Hypertension - Blood pressure controlled, home medications continued with dose adjustment as needed 7. Dyslipidemia -Patient is on statin therapy, continued at home dose 8. Class I obesity with BMI of 33.5 ? Weight loss advised 9. DVT prophylaxis ? SC Lovemariex Charges/Coding Visit Charges OBSV E&M: 60810 Initial observation care L3
--- NOTE | 2022-03-01 17:04 | SUR.PHASEI ---
PT FAMILY WAS UPDATED ABOUT PT DISPO AT 1650.
[2022-03-01] MEDS: 0.9% Normal Saline 1,000 ML 100 ML IV (17:33)
[2022-03-01] MEDS: Metoclopramide 5 MG TABLET PO (17:58)
[2022-03-01 18:39] LABS: Absolute Lymphocyte Count 0.81 X10^3/uL (0.83-4.51); Absolute Neutrophil Count 8.6 X10^3/uL (2.0-7.7); Basophil# 0.02 X10^3/uL; Basophil% 0.2 % (0-1); Eosinophil# 0.01 X10^3/uL; Eosinophils% 0.1 % (0-5); Hematocrit 37.4 % (37-47); Lymphocyte # 0.81 X10^3/ul (0.83-4.51); Lymphocyte % 8.4 % (19-41); Mean Corp Hgb Conc 32.1 g/dL (32-36); Mean Corpuscular Hgb 29.6 pg (27.0-32.0); Mean Corpuscular Volume 92.3 fL (81-99); Mean Platelet Vol. 11.1 fl (6.2-12.0); Monocyte# 0.16 X10^3/uL; Monocyte% 1.7 % (0-10); NRBC Flagged by Analyzer 0 % (0-5); Neutrophil # 8.57 X10^3/uL (2.7-7.7); Neutrophil % 89.3 % (47-70); Platelet Count 225 K/mm3 (150-450); RBC Distribution Width CV 12.4 % (11.6-14.6); RBC Distribution Width SD 41.9 fl (35.1-43.9); Red Blood Count 4.05 M/mm3 (4.2-5.4); White Blood Count 9.6 K/mm3 (4.4-11.0)
[2022-03-01 19:05] LABS: Hemoglobin A1c 12.9 % (3.8-5.6)
[2022-03-01 19:36] LABS: ALB/GLOB Ratio 0.7 RATIO (0.9-2.4); AST(SGOT) 19 U/L (15-37); Alanine Aminotransfer ALT/SGPT 22 U/L (13-56); Alkaline Phosphatase 111 U/L (45-117); Anion Gap 3 (5-15); BUN 18 mg/dL (7-18); BUN/Creat Ratio 26.3 RATIO (10-20); Calcium,Total 8.9 mg/dL (8.5-10.1); Chloride 105 mmol/L (98-107); Creatinine, Serum 0.68 mg/dL (0.55-1.02); EST Glomerular Filtration Rate 96 mL/min (>60); Est Glom Filt Rate - Afr Amer 117 mL/min (>60); Estimated Creatinine Clearance 110.62 ml/min; Globulin 4.2 g/dL (2.2-4.2); Glucose 149 mg/dL (74-106); Magnesium 1.7 mg/dL (1.6-2.6); Potassium 3.6 mmol/L (3.5-5.1); Protein, Total 7.2 g/dL (6.4-8.2); Sodium Level 138 mmol/L (136-145)
[2022-03-01] MEDS: 0.9% Saline Lock 10 ML Syringe IV (20:45)
[2022-03-01] MEDS: Metoprolol Tartrate 25 MG Tablet PO (20:56)
[2022-03-01] MEDS: traZODone 100 MG Tablet 200 MG PO (20:57)
[2022-03-01] MEDS: Insulin Glargine-YFGN 100 UNIT/ML Pen 42 UNIT SC (21:05)
[2022-03-01] MEDS: Insulin Lispro 100 UNIT/ML INSULN.PEN SC (21:06)
[2022-03-01 22:35] LABS: Bedside Glucose 173 mg/dL (74-106)
[2022-03-02 02:35] VITALS: BP 155/92; PULSE 78; RESP 16; TEMP 36.8; O2SAT 98
[2022-03-02] MEDS: oxyCODONE 5 MG Tablet PO ×2 (03:13→12:10)
[2022-03-02] MEDS: Ondansetron 4 MG/2 ML Vial IV (03:14)
[2022-03-02] MEDS: 0.9% Saline Lock 10 ML Syringe IV (03:15)
[2022-03-02] MEDS: 0.9% Normal Saline 1,000 ML 100 ML IV (03:44)
[2022-03-02 06:05] LABS: Absolute Lymphocyte Count 1.48 X10^3/uL (0.83-4.51); Absolute Neutrophil Count 6.9 X10^3/uL (2.0-7.7); Basophil# 0.02 X10^3/uL; Basophil% 0.2 % (0-1); Eosinophil# 0.01 X10^3/uL; Eosinophils% 0.1 % (0-5); Hematocrit 36.3 % (37-47); Hemoglobin 11.6 g/dL (12.0-15.0); Lymphocyte # 1.48 X10^3/ul (0.83-4.51); Lymphocyte % 16.5 % (19-41); Mean Corpuscular Hgb 29.3 pg (27.0-32.0); Mean Corpuscular Volume 91.7 fL (81-99); Mean Platelet Vol. 11.3 fl (6.2-12.0); Monocyte# 0.58 X10^3/uL; Monocyte% 6.5 % (0-10); NRBC Flagged by Analyzer 0 % (0-5); Neutrophil # 6.88 X10^3/uL (2.7-7.7); Neutrophil % 76.5 % (47-70); Platelet Count 218 K/mm3 (150-450); RBC Distribution Width CV 12.4 % (11.6-14.6); RBC Distribution Width SD 41.7 fl (35.1-43.9); Red Blood Count 3.96 M/mm3 (4.2-5.4)
[2022-03-02 06:39] LABS: AST(SGOT) 14 U/L (15-37); Alanine Aminotransfer ALT/SGPT 19 U/L (13-56); Albumin, Serum 2.8 g/dL (3.2-5.0); Alkaline Phosphatase 102 U/L (45-117); Anion Gap 6 (5-15); BUN 16 mg/dL (7-18); BUN/Creat Ratio 25.4 RATIO (10-20); Bilirubin, Direct 0.08 mg/dL (0.00-0.30); Calcium,Total 8.4 mg/dL (8.5-10.1); Chloride 104 mmol/L (98-107); Creatinine, Serum 0.63 mg/dL (0.55-1.02); EST Glomerular Filtration Rate 106 mL/min (>60); Est Glom Filt Rate - Afr Amer 129 mL/min (>60); Globulin 3.9 g/dL (2.2-4.2); Glucose 187 mg/dL (74-106); Magnesium 1.7 mg/dL (1.6-2.6); Potassium 3.6 mmol/L (3.5-5.1); Protein, Total 6.7 g/dL (6.4-8.2); Sodium Level 136 mmol/L (136-145)
[2022-03-02] MEDS: Sucralfate 1 GM Tablet PO (06:50)
[2022-03-02] MEDS: Metoclopramide 5 MG TABLET PO ×2 (06:50→12:07)
--- NOTE | 2022-03-02 07:24 | PN.HOSP_ITS ---
Subjective Subjective Patient seen had a relatively uneventful night. Plan is for patient to be discharged home later today Objective Data Objective Data Vital Signs: Vital Signs Temp Pulse Resp BP Pulse Ox 98.2 F 78 16 155/92 H 98 03/02/22 02:35 03/02/22 02:35 03/02/22 02:35 03/02/22 02:35 03/02/22 02:35 Oxygen Delivery Method Room Air Weight: 109 kg Body Mass Index (BMI) 33.5 Intake & Output: Intake and Output for Last 24 Hours 02/28/22 03/01/22 03/02/22 23:59 23:59 23:59 Intake Total 2048.05 / 2048.05 1340 / 1340 Balance 2048. / 2048.05 1340 / 1340 Lab / Micro Data Result Diagrams: 03/02/22 05:30 03/02/22 05:30 Labs: Laboratory Results - last 24 hr 03/01/22 11:15: POC Glucose 117 H 03/01/22 18:15: WBC 9.6, RBC 4.05 L, Hgb 12.0, Hct 37.4, MCV 92.3, MCH 29.6, MCHC 32.1, RDW Std Deviation 41.9, RDW Coeff of Ilene 12.4, Plt Count 225, MPV 11.1, Immature Gran % (Auto) 0.300, Neut % (Auto) 89.3 H, Lymph % (Auto) 8.4 L, [place] % (Auto) 1.7, Eos % (Auto) 0.1, Baso % (Auto) 0.2, Absolute Neuts (auto) 8. 6 H, Absolute Lymphs (auto) 0.81 L, Nucleated RBC % 0 03/01/22 18:15: Sodium 138, Potassium 3.6, Chloride 105, Carbon Dioxide 30.0, Anion Gap 3 L, BUN 18, Creatinine 0.68, Estim Creat Clear Calc 110.62, Est GFR (MDRD) Af Amer 117, Est GFR (MDRD) Non-Af 96, BUN/Creatinine Ratio 26.3 H, Glucose 149 H, Calcium 8.9, Magnesium 1.7, Total Bilirubin 0.30, AST 19, ALT 22, Alkaline Phosphatase 111, Total Protein 7.2, Albumin 3.0 L, Globulin 4.2, Albumin/Globulin Ratio 0.7 L 03/01/22 18:15: Hemoglobin A1c 12.9 H 03/01/22 21:00: POC Glucose 173 H 03/02/22 05:30: WBC 9.0, RBC 3.96 L, Hgb 11.6 L, Hct 36.3 L, MCV 91.7, MCH 29.3, MCHC 32.0, RDW Std Deviation 41.7, RDW Coeff of Ilene 12.4, Plt Count 218, MPV 11.3, Immature Gran % (Auto) 0.200, Neut % (Auto) 76.5 H, Lymph % (Auto) 16.5 L, [place] % (Auto) 6.5, Eos % (Auto) 0.1, Baso % (Auto) 0.2, Absolute Neuts (auto) 6.9, Absolute Lymphs (auto) 1.48, Nucleated RBC % 0 03/02/22 05:30: Sodium 136, Potassium 3.6, Chloride 104, Carbon Dioxide 26.0, Anion Gap 6, BUN 16, Creatinine 0.63, Estim Creat Clear Calc 119.40, Est GFR (MDRD) Af Amer 129, Est GFR (MDRD) Non-Af 106, BUN/Creatinine Ratio 25.4 H, Glucose 187 H, Calcium 8.4 L, Magnesium 1.7, Total Bilirubin 0.40, Direct Bilirubin 0.08, AST 14 L, ALT 19, Alkaline Phosphatase 102, Total Protein 6.7, Albumin 2.8 L, Globulin 3.9 Micro: Microbiology 02/28/22 08:38 Interface Orders SARS-CoV-2 Antigen (Rapid) - Final Radiography Diagnostic Testing: Radiology Impression ERCP X-Ray 03/01/22 12:00 IMPRESSION: Dilated common bile duct. Placement of a biliary stent. Electronically Signed: Willian Garduno MD at 15:37 EDT , Physical Exam Narrative GENERAL: cooperative HEENT: Atraumatic; EYES; Anicteric, Normal Conjunctiva NECK; supple, normal thyroid, RESPIRATORY: Diminished to auscultation CARDIOVASCULAR: Regular S1 S2, GI: soft, normoactive bowel sounds, : No Renal angle tenderness; EXTREMITIES: No edema, no clubbing, MUSCULOSKELETAL: no muscle wasting NEURO: Awake; no lateralizing signs. SKIN: No Rash PSYCH; Flat affect Assessment & Plan Assessment/Plan (1) Common bile duct dilatation: PLAN: KORI SHEPHERD, is a 51 F with multiple comorbidities including diabetes mellitus type 2 with gastroparesis, who underwent ERCP by Dr. Curtis on 03/01/2022. 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 Patient had sphincterectomy performed, dilatation of the common bile duct and a temporary stent placed into the common bile duct. Patient was found to have significant abdominal pain following the procedure decision was therefore made to admit patient for observation 1. Status post ERCP ? Procedure was performed by Dr. Curtis on 03/01/2022. 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 Patient had sphincterectomy performed, dilatation of the common bile duct and a temporary stent placed into the common bile duct ? 03/02/2022. Somewhat improved 2. Diabetes mellitus type 2 ? Poorly controlled with complications including gastroparesis and diabetic nephropathy. Patient hemoglobin being A1c obtained on 01/06/2021 was 11.4 ? Repeat hemoglobin A1c 12.9 3. Chronic kidney disease stage III ? Per history ordered BMP for follow-up 4. Gastroparesis ? Patient is on Reglan before meals and at bedtime did continue 5. Gastritis ? Patient is on PPI continue 6. Hypertension - Blood pressure controlled, home medications continued with dose adjustment as needed 7. Dyslipidemia -Patient is on statin therapy, continued at home dose 8. Class I obesity with BMI of 33.5 ? Weight loss advised 9. DVT prophylaxis ? SC Lovenox Charges/Coding Visit Charges Inpatient E&M: 49234 Subs Hosp L2
--- NOTE | 2022-03-02 07:24 | PCM.CONS.GEN ---
Assessment & Plan Assessment/Plan (1) Gastroparesis: PLAN: I will start her back on Reglan therapy. Poorly controlled diabetic with complications of neuropathy, gastroparesis, gastritis, retinopathy and nephropathy. She will also need to be on PPI therapy. Can advance diet at this time. (2) Abdominal pain: PLAN: I think her abdominal pain is multifactorial. But I will check an ESR, CRP, LDH along with a CA 19-9 for pancreatic cancer. We will make sure that her lipase is not extremely elevated and if her inflammatory markers are extremely elevated recommend CT scan abdomen pelvis. HPI Consult Data Date of Consult: 03/02/22 HPI Narrative HPI Narrative: KORI SHEPHERD, is a 51 F who presents after undergoing ERCP yesterday. She has a past medical history of fatty liver disease secondary to diabetes and alcohol usage. She been having worsening abdominal pain as an outpatient and was diagnosed clinically with gastroparesis. She also has stage III CKD morbid obesity and a history of gastritis seen on upper endoscopy. She had an MRCP which had shown an abnormal pancreatic biliary junction. She underwent ERCP yesterday with biopsies of the distal common bile duct stricture and placement of a biliary stent along with a pancreatic stent. She had worsening abdominal pain after the procedure. She was started on IV fluids and given pain medicine. Her pain was a 10 out of 10 and currently is a 4 out of 10. She denies any nausea, vomiting or diarrhea. She does complain of some mild midepigastric pain. She does admit that she is very depressed due to recent diagnosis of brain cancer and a very close friend of hers. [facility] Medical History Alcohol use Allergies Anemia Anxiety Arthritis Atrial fibrillation Back problem COVID Depression Dietary restriction Excessive bleeding Gastritis GERD (gastroesophageal reflux disease) Heart murmur History of cardiac murmur History of edema History of renal disease HTN (hypertension) Hyperlipidemia Insulin dependent diabetes mellitus Leg cramps Liver disease Migraine Neuropathy Non-smoker Shortness of breath on exertion Sleep apnea Tubular adenoma of colon Vitamin deficiency Wears glasses Wears partial dentures Home Medications aspirin 81 mg tablet,delayed release 81 mg PO DAILY 07/11/20 [History Last Taken 02/28/22] insulin aspart U-100 100 unit/mL (3 mL) subcutaneous pen 9 unit SC TID ml 07/11/20 [History Last Taken 02/28/22] metoprolol tartrate 25 mg tablet 25 mg PO BID 07/11/20 [History Last Taken 03/01/22] multivitamin 1 tab PO DAILY 07/11/20 [History Last Taken 02/28/22] omega-3 fatty acids 1,000 mg capsule 1,000 mg PO DAILY 07/11/20 [History Last Taken 02/28/22] omeprazole 20 mg-sodium bicarbonate 1.1 gram capsule 1 cap PO DAILY 07/11/20 [History Last Taken 03/01/22] pravastatin 40 mg tablet 40 mg PO DAILY 07/11/20 [History Last Taken 02/28/22] trazodone 150 mg tablet 200 mg PO QHS 07/11/20 [History Last Taken 02/28/22] tizanidine 2 mg tablet 1 tab PO DAILY 01/06/21 [History Last Taken 02/28/22] ondansetron 4 mg disintegrating tablet 4 mg PO Q8H PRN #90 tab 12/27/21 [Rx Last Taken 02/28/22] dulaglutide [Trulicity] 3 mg SUBCUT QWEEK 12/28/21 [History Last Taken 02/28/22] fremanezumab-vfrm [Ajovy Autoinjector] 225 mg SUBCUT QMONTH 12/28/21 [History Last Taken 02/28/22] insulin glargine [Lantus U-100 Insulin] 42 unit SUBCUT QPM 12/28/21 [History Last Taken 03/01/22] metoclopramide HCl 5 mg tablet 5 mg PO QAC #90 tab 01/17/22 [Rx Last Taken 02/28/22] sucralfate 100 mg/mL oral suspension 10 ml PO BID #1000 ml 01/17/22 [Rx Last Taken 02/28/22] linaclotide 145 mcg capsule 145 mcg PO DAILY #30 cap 01/24/22 [Rx Last Taken 02/28/22] scopolamine base 1 mg over 3 days transdermal patch 1 patch TRANSDERMAL Q72H #10 ea 02/12/22 [Rx Last Taken 02/28/22] Allergy/AdvReac Type Severity Reaction Status Date / Time lactase [From Dairy Aid] Allergy Severe diarrhea Verified 02/26/22 12:30 codeine Allergy Intermediate mental Verified 02/26/22 12:30 status diphenhydramine Allergy Intermediate mental Verified 02/26/22 12:30 [From Benadryl Allergy] status quetiapine [From Seroquel] Allergy Intermediate about Verified 03/01/22 17:16 killed me - went into DKA Family History Other Arthritis Cancer Depression Diabetes Kidney disease Surgical History History of esophagogastroduodenoscopy (EGD) History of hysterectomy Hx of colonoscopy Social History Smoking Status: Never smoker alcohol intake: current ROS Review of Systems ROS Unobtainable: other Constitutional Constitutional: Denies fatigue, fever(s), poor appetite, weight gain or weight loss ENT HEENT: Denies mouth lesions Cardiovascular Cardiovascular: Denies abdominal bloating, abdominal edema or abdominal pain Respiratory/Chest Respiratory/Chest: Denies change in mental status, change in phlegm color, chest congestion or chest tightness Gastrointestinal Gastrointestinal: Reports abdominal pain Genitourinary Genitourinary: Denies abdominal discomfort, burning urination or itching Musculoskeletal Musculoskeletal: Reports as per HPI; Denies muscle weakness or myalgias Integumentary Integumentary: Denies jaundice Neurologic Neurologic: Denies lack of coordination or weakness Psychiatric Psychiatric: Denies confusion, depression, memory loss, mood swings, paranoia or suicidal ideation Endocrine Endocrinology: Denies systems reviewed and no addt'l complaints, except as documented Hematologic/Lymphatic Hematologic/Lymphatic: Denies anemia, easy bleeding, easy bruising or lymphadenopathy Allergic/Immunologic Allergic/Immunologic: Denies systems reviewed and no addt'l complaints, except as documented Physical Exam Const alert General Appearance: cooperative Orientation / Consciousness: oriented to person HEENT hearing grossly normal bilaterally Head and Scalp: normal to inspection Face and Sinus: face symmetric Nose: external nose normal Mouth: oral and palatal mucosa normal Eyes conjunctivae normal General Eye: normal appearance of both eyes Neck full ROM General: normal visual inspection Lymph Lymphatic: no lymphadenopathy noted Chest inspection of chest normal and palpation of chest normal Chest: symmetrical chest wall rise Resp normal respiratory effort Effort and Inspection: able to speak in complete sentences Cardio regular rate GI non-distended GI Narrative: Mild abdominal tenderness on deep palpation in the midepigastric area Percussion: normal to percussion Rectal Exam: deferred Neuro Speech: speech normal Lab / Micro Data Result Diagrams: 03/02/22 05:30 03/02/22 05:30 Labs: Laboratory Results - last 24 hr 03/01/22 11:15: POC Glucose 117 H 03/01/22 18:15: WBC 9.6, RBC 4.05 L, Hgb 12.0, Hct 37.4, MCV 92.3, MCH 29.6, MCHC 32.1, RDW Std Deviation 41.9, RDW Coeff of Ilene 12.4, Plt Count 225, MPV 11.1, Immature Gran % (Auto) 0.300, Neut % (Auto) 89.3 H, Lymph % (Auto) 8.4 L, [place] % (Auto) 1.7, Eos % (Auto) 0.1, Baso % (Auto) 0.2, Absolute Neuts (auto) 8.6 H, Absolute Lymphs (auto) 0.81 L, Nucleated RBC % 0 03/01/22 18:15: Sodium 138, Potassium 3.6, Chloride 105, Carbon Dioxide 30.0, Anion Gap 3 L, BUN 18, Creatinine 0.68, Estim Creat Clear Calc 110.62, Est GFR (MDRD) Af Amer 117, Est GFR (MDRD) Non-Af 96, BUN/Creatinine Ratio 26.3 H, Glucose 149 H, Calcium 8.9, Magnesium 1.7, Total Bilirubin 0.30, AST 19, ALT 22, Alkaline Phosphatase 111, Total Protein 7.2, Albumin 3.0 L, Globulin 4.2, Albumin/Globulin Ratio 0.7 L 03/01/22 18:15: Hemoglobin A1c 12.9 H 03/01/22 21:00: POC Glucose 173 H 03/02/22 05:30: WBC 9.0, RBC 3.96 L, Hgb 11.6 L, Hct 36.3 L, MCV 91.7, MCH 29.3, MCHC 32.0, RDW Std Deviation 41.7, RDW Coeff of Ilene 12.4, Plt Count 218, MPV 11.3, Immature Gran % (Auto) 0.200, Neut % (Auto) 76.5 H, Lymph % (Auto) 16.5 L, [place] % (Auto) 6.5, Eos % (Auto) 0.1, Baso % (Auto) 0.2, Absolute Neuts (auto) 6.9, Absolute Lymphs (auto) 1.48, Nucleated RBC % 0 03/02/22 05:30: Sodium 136, Potassium 3.6, Chloride 104, Carbon Dioxide 26.0, Anion Gap 6, BUN 16, Creatinine 0.63, Estim Creat Clear Calc 119.40, Est GFR (MDRD) Af Amer 129, Est GFR (MDRD) Non-Af 106, BUN/Creatinine Ratio 25.4 H, Glucose 187 H, Calcium 8.4 L, Magnesium 1.7, Total Bilirubin 0.40, Direct Bilirubin 0.08, AST 14 L, ALT 19, Alkaline Phosphatase 102, Total Protein 6.7, Albumin 2.8 L, Globulin 3.9 Radiology Impression ERCP X-Ray 03/01/22 12:00 IMPRESSION: Dilated common bile duct. Placement of a biliary stent. Electronically Signed: Willian Garduno MD at 15:37 EDT , Charges/Coding Visit Charges Inpatient E&M: 74313 Init Hosp L2
[2022-03-02 08:23] LABS: Erythrocyte Sedimentation Rate 63 mm/hr (0-30); Lipase 4329 U/L (73-393)
[2022-03-02 08:28] VITALS: BP 133/76; PULSE 78; RESP 18; TEMP 36.8; O2SAT 96
[2022-03-02] MEDS: Insulin Lispro 100 UNIT/ML INSULN.PEN SC ×2 (08:38→12:08)
[2022-03-02 08:39] VITALS: BP 133/76; PULSE 78
[2022-03-02] MEDS: LINACLOTIDE 145 MCG CAPSULE PO (08:39)
[2022-03-02] MEDS: Aspirin E.C. 81 MG Tablet PO (08:39)
[2022-03-02] MEDS: Metoprolol Tartrate 25 MG Tablet PO (08:39)
--- NOTE | 2022-03-02 08:39 | PCM.DC.SUM ---
Providers Date of Admission: 03/01/22 Primary Care Physician: Dr. Migue Silveira, Consultations 03/01/22 16:32 Consult: Gastroenterology Routine Consulting Provider: [facility] Reason for Consult: Biliary stricture EMERGENT Consult: No MD Notified: Yes Date Notified: 03/01/22 Time Notified: 16:33 Method of Notification: Verbal Reason For Visit: Pre-Surgical Testing Diagnosis Discharge Diagnosis (1) Common bile duct dilatation: Status: Acute Code(s): K83.8 - Other specified diseases of biliary tract Medications at Discharge Home Medications aspirin 81 mg tablet,delayed release 81 mg PO DAILY 07/11/20 insulin aspart U-100 100 unit/mL (3 mL) subcutaneous pen 9 unit SC TID ml 07/11/20 metoprolol tartrate 25 mg tablet 25 mg PO BID 07/11/20 multivitamin 1 tab PO DAILY 07/11/20 omega-3 fatty acids 1,000 mg capsule 1,000 mg PO DAILY 07/11/20 omeprazole 20 mg-sodium bicarbonate 1.1 gram capsule 1 cap PO DAILY 07/11/20 pravastatin 40 mg tablet 40 mg PO DAILY 07/11/20 trazodone 150 mg tablet 200 mg PO QHS 07/11/20 tizanidine 2 mg tablet 1 tab PO DAILY 01/06/21 ondansetron 4 mg disintegrating tablet 4 mg PO Q8H PRN #90 tab 12/27/21 Ajovy Autoinjector 225 mg SUBCUT QMONTH 12/28/21 Trulicity 3 mg SUBCUT QWEEK 12/28/21 insulin glargine 42 unit SUBCUT QPM 12/28/21 metoclopramide HCl 5 mg tablet 5 mg PO QAC #90 tab 01/17/22 sucralfate 100 mg/mL oral suspension 10 ml PO BID #1000 ml 01/17/22 linaclotide 145 mcg capsule 145 mcg PO DAILY #30 cap 01/24/22 scopolamine base 1 mg over 3 days transdermal patch 1 patch TRANSDERMAL Q72H #10 ea 02/12/22 Hospital Course Summary of Care Provided Minutes Spent on Discharge: 35 Hospital Course: KORI SHEPHERD, is a 51 F with multiple comorbidities including diabetes mellitus type 2 with gastroparesis, who underwent ERCP by Dr. Curtis on 03/01/2022. 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 Patient had sphincterectomy performed, dilatation of the common bile duct and a temporary stent placed into the common bile duct. Patient was found to have significant abdominal pain following the procedure decision was therefore made to admit patient for observation 1. Status post ERCP ? Procedure was performed by Dr. Curtis on 03/01/2022. 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 Patient had sphincterectomy performed, dilatation of the common bile duct and a temporary stent placed into the common bile duct ? 03/02/2022. Somewhat improved 2. Diabetes mellitus type 2 ? Poorly controlled with complications including gastroparesis and diabetic nephropathy. Patient hemoglobin being A1c obtained on 01/06/2021 was 11.4 ? Repeat hemoglobin A1c 12.9 3. Chronic kidney disease stage III ? Per history ordered BMP for follow-up 4. Gastroparesis ? Patient is on Reglan before meals and at bedtime did continue 5. Gastritis ? Patient is on PPI continue 6. Hypertension - Blood pressure controlled, home medications continued with dose adjustment as needed 7. Dyslipidemia -Patient is on statin therapy, continued at home dose 8. Class I obesity with BMI of 33.5 ? Weight loss advised 9. DVT prophylaxis ? SC Lovenox Physical Exam Narrative GENERAL: cooperative HEENT: Atraumatic; EYES; Anicteric, Normal Conjunctiva NECK; supple, normal thyroid, RESPIRATORY: Diminished to auscultation CARDIOVASCULAR: Regular S1 S2, GI: soft, normoactive bowel sounds, : No Renal angle tenderness; EXTREMITIES: No edema, no clubbing, MUSCULOSKELETAL: no muscle wasting NEURO: Awake; no lateralizing signs. SKIN: No Rash PSYCH; Flat affect Weight / BMI Weight Weight: 109 kg Body Mass Index (BMI) 33.5 ABG / Lab / Microbiology Data Result Diagrams: 03/02/22 05:30 03/02/22 05:30 Laboratory: Laboratory Results - last 24 hr 03/01/22 11:15: POC Glucose 117 H 03/01/22 18:15: WBC 9.6, RBC 4.05 L, Hgb 12.0, Hct 37.4, MCV 92.3, MCH 29.6, MCHC 32.1, RDW Std Deviation 41.9, RDW Coeff of Ilene 12.4, Plt Count 225, MPV 11.1, Immature Gran % (Auto) 0.300, Neut % (Auto) 89.3 H, Lymph % (Auto) 8.4 L, [place] % (Auto) 1.7, Eos % (Auto) 0.1, Baso % (Auto) 0.2, Absolute Neuts (auto) 8.6 H, Absolute Lymphs (auto) 0.81 L, Nucleated RBC % 0 03/01/22 18:15: Sodium 138, Potassium 3.6, Chloride 105, Carbon Dioxide 30.0, Anion Gap 3 L, BUN 18, Creatinine 0.68, Estim Creat Clear Calc 110.62, Est GFR (MDRD) Af Amer 117, Est GFR (MDRD) Non-Af 96, BUN/Creatinine Ratio 26.3 H, Glucose 149 H, Calcium 8.9, Magnesium 1.7, Total Bilirubin 0.30, AST 19, ALT 22, Alkaline Phosphatase 111, Total Protein 7.2, Albumin 3.0 L, Globulin 4.2, Albumin/Globulin Ratio 0.7 L 03/01/22 18:15: Hemoglobin A1c 12.9 H 03/01/22 21:00: POC Glucose 173 H 03/02/22 05:30: WBC 9.0, RBC 3.96 L, Hgb 11.6 L, Hct 36.3 L, MCV 91.7, MCH 29.3, MCHC 32.0, RDW Std Deviation 41.7, RDW Coeff of Ilene 12.4, Plt Count 218, MPV 11.3, Immature Gran % (Auto) 0.200, Neut % (Auto) 76.5 H, Lymph % (Auto) 16.5 L, [place] % (Auto) 6.5, Eos % (Auto) 0.1, Baso % (Auto) 0.2, Absolute Neuts (auto) 6.9, Absolute Lymphs (auto) 1.48, Nucleated RBC % 0 03/02/22 05:30: Sodium 136, Potassium 3.6, Chloride 104, Carbon Dioxide 26.0, Anion Gap 6, BUN 16, Creatinine 0.63, Estim Creat Clear Calc 119.40, Est GFR (MDRD) Af Amer 129, Est GFR (MDRD) Non-Af 106, BUN/Creatinine Ratio 25.4 H, Glucose 187 H, Calcium 8.4 L, Magnesium 1.7, Total Bilirubin 0.40, Direct Bilirubin 0.08, AST 14 L, ALT 19, Alkaline Phosphatase 102, Total Protein 6.7, Albumin 2.8 L, Globulin 3.9 03/02/22 05:30: ESR 63 H 03/02/22 05:30: C-React Prot Ext Range 27.80 H, Lipase 4329 H Microbiology: Microbiology 02/28/22 08:38 Interface Orders SARS-CoV-2 Antigen (Rapid) - Final Radiography Diagnostic Testing: Radiology Impression ERCP X-Ray 03/01/22 12:00 IMPRESSION: Dilated common bile duct. Placement of a biliary stent. Electronically Signed: Willian Garduno MD at 15:37 EDT , D/C Instructions Discharge Diet: 1800 Calorie Control Diet Discharge Activity: Return to Normal Activity Call your doctor if you observe: Fever of 101 or Higher, Shortness of breath, Fainting spells and Chest pain Meaningful Use Info Meaningful Use Diagnoses (Choose all that apply): None applicable Discharge Plan Admission Admit Date/Time: 03/01/22 16:27 Attending Provider: Juan Curtis Primary Care Provider: Migue Silveira Instructions Forms: Work / School Excuse Discharge Orders/Prescriptions Prescriptions: Continued trazodone 150 mg tablet 200 mg PO QHS RF: 0 aspirin 81 mg tablet,delayed release (DR/EC) 81 mg PO DAILY RF: 0 metoprolol tartrate 25 mg tablet 25 mg PO BID RF: 0 pravastatin 40 mg tablet 40 mg PO DAILY RF: 0 omeprazole-sodium bicarbonate 20-1.1 mg-gram capsule 1 cap PO DAILY RF: 0 omega-3 fatty acids [Fish Oil Concentrate] 1,000 mg capsule 1,000 mg PO DAILY RF: 0 multivitamin [Daily Multi-Vitamin] Tablet 1 tab PO DAILY RF: 0 insulin aspart U-100 [Novolog Flexpen U-100 Insulin] 100 unit/mL (3 mL) insulin pen 9 unit SC TID RF: 0 tizanidine 2 mg tablet 1 tab PO DAILY RF: 0 metoclopramide HCl 5 mg tablet 5 mg PO QAC Qty: 90 RF: 0 sucralfate [Carafate] 100 mg/mL suspension 10 ml PO BID Qty: 1000 RF: 0 Ajovy Autoinjector 225 mg/1.5 mL auto-injector 225 mg SUBCUT QMONTH RF: 0 Trulicity 3 mg/0.5 mL Pen Injector 3 mg SUBCUT QWEEK RF: 0 insulin glargine 100 unit/mL Cartridge 42 unit SUBCUT QPM RF: 0 ondansetron 4 mg tablet,disintegrating 4 mg PO Q8H PRN (Reason: nausea and vomiting) Qty: 90 RF: 1 Linzess 145 mcg capsule 145 mcg PO DAILY Qty: 30 RF: 4 scopolamine base 1 mg over 3 days patch 3 day 1 patch transdermal Q72H Qty: 10 RF: 0 Referrals / Follow Up: Migue Silveira DO [Primary Care Provider] - In 1 Week Juan Curtis DO [STAFF PHYSICIAN] - Within 2 Weeks Disposition Disposition (needs filled in before D/C Order can be placed): Home, Self Care Charges/Coding Visit Charges OBSV E&M: 65894 Observation care discharge
[2022-03-02] MEDS: Multivitamins,Therapeutic Tablet 1 TABLET PO (08:40)
[2022-03-02] MEDS: Pantoprazole Sodium 20 MG Tablet PO (08:40)
[2022-03-02] MEDS: Pravastatin 40 MG Tablet PO (08:40)
[2022-03-02] MEDS: Omega-3 Acid Ethyl Esters 1 GM Capsule PO (08:40)
[2022-03-02] MEDS: tiZANidine HCl 2 MG Tablet PO (08:40)
[2022-03-02 08:50] LABS: Bedside Glucose 171 mg/dL (74-106)
--- NOTE | 2022-03-02 10:49 | PHA.DC.MR ---
Pharmacy Service has performed discharge medication reconciliation for this patient. The patient's discharge medication list was reviewed for discrepancies and discrepancies were resolved. Home Medications aspirin 81 mg tablet,delayed release 81 mg PO DAILY 07/11/20 insulin aspart U-100 100 unit/mL (3 mL) subcutaneous pen 9 unit SC TID ml 07/11/20 metoprolol tartrate 25 mg tablet 25 mg PO BID 07/11/20 multivitamin 1 tab PO DAILY 07/11/20 omega-3 fatty acids 1,000 mg capsule 1,000 mg PO DAILY 07/11/20 omeprazole 20 mg-sodium bicarbonate 1.1 gram capsule 1 cap PO DAILY 07/11/20 pravastatin 40 mg tablet 40 mg PO DAILY 07/11/20 trazodone 150 mg tablet 200 mg PO QHS 07/11/20 tizanidine 2 mg tablet 1 tab PO DAILY 01/06/21 ondansetron 4 mg disintegrating tablet 4 mg PO Q8H PRN #90 tab 12/27/21 Ajovy Autoinjector 225 mg SUBCUT QMONTH 12/28/21 Trulicity 3 mg SUBCUT QWEEK 12/28/21 insulin glargine 42 unit SUBCUT QPM 12/28/21 metoclopramide HCl 5 mg tablet 5 mg PO QAC #90 tab 01/17/22 sucralfate 100 mg/mL oral suspension 10 ml PO BID #1000 ml 01/17/22 linaclotide 145 mcg capsule 145 mcg PO DAILY #30 cap 01/24/22 scopolamine base 1 mg over 3 days transdermal patch 1 patch TRANSDERMAL Q72H #10 ea 02/12/22
[2022-03-02 12:21] LABS: Bedside Glucose 188 mg/dL (74-106)
[2022-03-02 13:53] VITALS: O2SAT 95
[2022-03-02 15:08] VITALS: BP 168/87; PULSE 89; RESP 18; TEMP 37.1; O2SAT 100
[2022-03-02] MEDS: Acetaminophen 325 MG Tablet 650 MG PO (15:14)
[2022-03-02] MEDS: Mag Hydrox/Al Hydrox/Simeth 30 ML UDC PO (15:14)
[2022-03-03 10:54] LABS: Carbohydrate AG 19-9 21 U/mL (0-35)
[2022-03-05 06:39] LABS: Cytology, Body Fluid / CSF SEE PATHOLOGY REPORT
== END 2022-03-02 15:29 | disposition home or self-care (01) ==
LOC: EN 16:52 → MS3 03-02 08:43
PROVIDERS: Admitting Provider Internal Medicine; PCP Student in an Organized Health Care Education/Training Program; Referring Provider Student in an Organized Health Care Education/Training Program; Visit Provider Internal Medicine Gastroenterology
PROC: (CPT 43260; principal; 2022-03-01 11:30)
DX: K83.8 Other specified diseases of biliary tract (principal); E11.65 Type 2 diabetes mellitus with hyperglycemia; E11.43 Type 2 diabetes mellitus with diabetic autonomic (poly)neuropathy; E11.22 Type 2 diabetes mellitus with diabetic chronic kidney disease; E11.42 Type 2 diabetes mellitus with diabetic polyneuropathy; I48.91 Unspecified atrial fibrillation; E66.01 Morbid (severe) obesity due to excess calories; Z79.4 Long term (current) use of insulin; N18.30 Chronic kidney disease, stage 3 unspecified; Z79.82 Long term (current) use of aspirin; I12.9 Hypertensive chronic kidney disease with stage 1 through stage 4 chronic kidney disease, or unspecified chronic kidney disease; K29.70 Gastritis, unspecified, without bleeding; F32.A Depression, unspecified; K31.84 Gastroparesis; E78.2 Mixed hyperlipidemia; Z68.33 Body mass index [BMI] 33.0-33.9, adult; K83.1 Obstruction of bile duct; D12.6 Benign neoplasm of colon, unspecified; Z79.899 Other long term (current) drug therapy; G47.30 Sleep apnea, unspecified
CPT/HCPCS: 43264; 43274 ×2; 36415; 74328; 76000; 80048; 80053; 80076; 82962; 83036; 83690; 83735; 85025; 85652; 86140; 86301; 87426; 88108; 88305; 88313; 93005; 96361; 96374; 96375; 99218; C9803; J7030; J7120; A4216; G0378; J2405

== ENCOUNTER 2022-03-06 17:44 | Emergency (ER) | payer OTHER, SELFPAY ==
[2022-03-06 17:45] VITALS: BP 134/87; PULSE 99; RESP 15; TEMP 36.4; O2SAT 97; BMI 34.4
[2022-03-06 17:46] VITALS: BP 134/87; PULSE 99; RESP 15; TEMP 36.4; O2SAT 97
--- NOTE | 2022-03-06 18:21 | ED.VIS.GI ---
HPI HPI - GI History of Present Illness Chief Complaint: Nausea/Vomiting Informant: patient Abdominal Pain/Flank Pain Onset: Days Context: Gradual Onset Timing: Continuous Quality: Aching and Cramping Location: Epigastric Current Severity: Mild Maximum Severity: Moderate Worsened by: Nothing Relieved by: Nothing Nausea/Vomiting/Emesis GI Symptom: Positive for Nausea and Vomiting Diarrhea/Melena/Hematochezia GI Symptom: Negative for Diarrhea, Melena and Hematochezia Associated Symptoms Associated Symptoms: Negative for Dysuria, Frequency, Hematuria and Urgency Narrative Narrative: 51-year-old female history of anxiety, hypertension, A. fib, chronic kidney disease, diabetes gastroparesis. 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 Curtis. Patient she was doing well over the last several days developed upper abdominal pain with nausea vomiting. No diarrhea. She is actually some constipation. No dysuria. No hematemesis. No melena. Prior similar symptoms: Yes Recent Illness/Hospitalization: No PFSH PFSH Medical History Alcohol use Allergies Anemia Anxiety Arthritis Atrial fibrillation Back problem COVID Depression Dietary restriction Excessive bleeding Gastritis GERD (gastroesophageal reflux disease) Heart murmur History of cardiac murmur History of edema History of renal disease HTN (hypertension) Hyperlipidemia Insulin dependent diabetes mellitus Leg cramps Liver disease Migraine Neuropathy Non-smoker Shortness of breath on exertion Sleep apnea Tubular adenoma of colon Vitamin deficiency Wears glasses Wears partial dentures Home Medications aspirin 81 mg tablet,delayed release 81 mg PO DAILY 07/11/20 [History Last Taken 02/28/22] insulin aspart U-100 100 unit/mL (3 mL) subcutaneous pen 9 unit SC TID ml 07/11/20 [History Last Taken 02/28/22] metoprolol tartrate 25 mg tablet 25 mg PO BID 07/11/20 [History Last Taken 03/01/22] multivitamin 1 tab PO DAILY 07/11/20 [History Last Taken 02/28/22] omega-3 fatty acids 1,000 mg capsule 1,000 mg PO DAILY 07/11/20 [History Last Taken 02/28/22] omeprazole 20 mg-sodium bicarbonate 1.1 gram capsule 1 cap PO DAILY 07/11/20 [History Last Taken 03/01/22] pravastatin 40 mg tablet 40 mg PO DAILY 07/11/20 [History Last Taken 02/28/22] trazodone 150 mg tablet 200 mg PO QHS 07/11/20 [History Last Taken 02/28/22] tizanidine 2 mg tablet 1 tab PO DAILY 01/06/21 [History Last Taken 02/28/22] ondansetron 4 mg disintegrating tablet 4 mg PO Q8H PRN #90 tab 12/27/21 [Rx Last Taken 02/28/22] Ajovy Autoinjector 225 mg SUBCUT QMONTH 12/28/21 [History Last Taken 02/28/22] Trulicity 3 mg SUBCUT QWEEK 12/28/21 [History Last Taken 02/28/22] insulin glargine 42 unit SUBCUT QPM 12/28/21 [History Last Taken 03/01/22] metoclopramide HCl 5 mg tablet 5 mg PO QAC #90 tab 01/17/22 [Rx Last Taken 02/28/22] sucralfate 100 mg/mL oral suspension 10 ml PO BID #1000 ml 01/17/22 [Rx Last Taken 02/28/22] linaclotide 145 mcg capsule 145 mcg PO DAILY #30 cap 01/24/22 [Rx Last Taken 02/28/22] scopolamine base 1 mg over 3 days transdermal patch 1 patch TRANSDERMAL Q72H #10 ea 02/12/22 [Rx Last Taken 02/28/22] Allergy/AdvReac Type Severity Reaction Status Date / Time lactase [From Dairy Aid] Allergy Severe diarrhea Verified 03/06/22 17:47 codeine Allergy Intermediate mental Verified 03/06/22 17:47 status diphenhydramine Allergy Intermediate mental Verified 03/06/22 17:47 [From Benadryl Allergy] status quetiapine [From Seroquel] Allergy Intermediate about Verified 03/06/22 17:47 killed me - went into DKA Family History Other Arthritis Cancer Depression Diabetes Kidney disease Surgical History History of esophagogastroduodenoscopy (EGD) History of hysterectomy Hx of colonoscopy Social History Smoking Status: Never smoker alcohol intake: current ROS ROS ED ROS Narrative Upper abdominal pain. Nausea vomiting. Review of Systems ROS Unobtainable: Denies due to encephalopathy Constitutional Constitutional ED: Denies fever(s) ENT ENT ED: Denies ear pain Cardiovascular Cardiovascular: Denies chest pain Respiratory/Chest Respiratory/Chest: Denies cough or dyspnea Gastrointestinal Gastrointestinal: Reports abdominal pain, constipation, nausea and vomiting; Denies diarrhea or melena Genitourinary Genitourinary ED: Denies dysuria or hematuria Musculoskeletal Musculoskeletal: Denies myalgias Integumentary Denies rash Neurologic Neurologic: Denies headache(s) Psychiatric Psychiatric: Denies depression Endocrine Endocrinology: Denies polyuria Hematologic/Lymphatic Hematologic/Lymphatic: Denies easy bruising Allergic/Immunologic Allergic/Immunologic ED: Denies urticaria EXAM Physical Exam Narrative Exam Narrative: 51-year-old female no acute distress. Vital signs stable afebrile. Does not look septic toxic. Does not look dehydrated. H EENT exam unremarkable. Moist extremities. Lungs clear to auscultation. Heart regular rate and rhythm no murmur. Abdomen soft nondistended normal bowel sounds no peritoneal signs. Mild epigastric tenderness. No obstruction. No right upper quadrant tenderness. No hernia or mass. Moving all 4 extremities. Back nontender. Neurologically awake and alert. Const Vital Signs: 03/06/22 17:45 03/06/22 17:46 Temperature 97.6 F L 97.6 F L Temperature Source Temporal Temporal Pulse Rate 99 99 Respiratory Rate 15 15 Blood Pressure 134/87 H 134/87 H Blood Pressure Mean 102 102 Pulse Ox 97 97 Oxygen Delivery Method Room Air Room Air Positive well nourished, well developed and obese; Negative for cachectic, contractures or unkempt General Appearance ED: well developed and NAD; Negative for unkempt, cachectic, contractures or pallor Nutritional Appearance: obese; Negative for cachectic HEENT Reports moist mucous membranes normocephalic and atraumatic; Negative for trauma or tenderness Eyes PERRL and EOMs intact bilaterally General Eye ED: Negative for pale conjunctiva or scleral icterus Neck no lymphadenopathy, supple and no JVD General: Negative for tenderness Resp normal respiratory effort and clear to auscultation bilaterally Auscultation: Negative for rales, rhonchi or wheezes Cardio regular rate, regular rhythm, S1 normal heart sound, S2 normal heart sound and no murmurs GI non-distended and no masses; Negative for non-tender Inspection: Negative for abdominal distention Auscultation: normoactive bowel sounds; Negative for hyperactive bowel sounds or hypoactive bowel sounds Palpation: soft and tender; Negative for guarding, rigid, hepatomegaly, splenomegaly, hernia, mass, pulsatile mass or rebound tenderness present Back/Spine no CVA tenderness General Back: Negative for CVA tenderness Cervical Spine: Negative for cervical spine tenderness Thoracic Spine / Upper Back: Negative for thoracic spinal tenderness Lumbar Spine / Lower Back: Negative for lumbar spinal tenderness Extremity full ROM General Extremety ED: Negative for edema or tenderness General Extremity: Negative for edema Neuro moves all extremities Sensorium / Orientation: alert, oriented to person, oriented to place and oriented to time; Negative for orientation impaired, confused, lethargic or stuporous Motor Exam: strength 5/5 throughout Psych mental status grossly normal and thought process normal Appearance: Negative for unkempt Attitude: No agitated Mood & Affect: Negative for depressed or tearful Skin no wounds General Skin Exam: Negative for jaundice or pallor Lesions: no lesions Rashes: no rashes and No rashes noted MDM MDM MDM Narrative Medical decision making narrative: 51-year-old with epigastric pain nausea and vomiting. Recent biliary stent. Also recent elevated lipase consistent with pancreatitis. Her abdominal exam is benign. We will start with labs IV fluids and Zofran and pain medication. Imaging as needed. Repeat exam is unremarkable at 7:50 PM. However the labs the patient will be discharged home with outpatient follow-up. Lab Data Attestation: I reviewed the patient's lab results. Lab results narrative: CBC White count 8. H&H 10.9 and 34 which is her baseline. Platelets 305. Electrolytes show a gap of 7 normal BUN and creatinine is 16 and 0.9. Glucose 278. Liver enzymes unremarkable. Amylase of 39 lipase of 136 and both normal. Her most recent lipase before today was 4300. It is back to normal and markedly improved. Labs: Laboratory Results - last 24 hr 03/06/22 03/06/22 18:28 18:28 WBC 8.3 RBC 3.69 L Hgb 10.9 L Hct 34.0 L MCV 92.1 MCH 29.5 MCHC 32.1 RDW Std Deviation 41.3 RDW Coeff of Ilene 12.2 Plt Count 305 MPV 10.8 Immature Gran % (Auto) 0.400 Neut % (Auto) 70.2 H Lymph % (Auto) 20.3 [place] % (Auto) 5.5 Eos % (Auto) 3.1 Baso % (Auto) 0.5 Absolute Neuts (auto) 5.8 Absolute Lymphs (auto) 1.69 Nucleated RBC % 0 Sodium 136 Potassium 4.2 Chloride 101 Carbon Dioxide 28.0 Anion Gap 7 BUN 16 Creatinine 0.93 Estim Creat Clear Calc 78.26 Est GFR (MDRD) Af Amer 82 Est GFR (MDRD) Non-Af 67 BUN/Creatinine Ratio 17.1 Glucose 278 H Calcium 9.5 Total Bilirubin 0.40 AST 11 L ALT 15 Alkaline Phosphatase 105 Total Protein 7.4 Albumin 2.5 L Globulin 4.9 H Albumin/Globulin Ratio 0.5 L Amylase 39 Lipase 136 Discharge Plan Triage Chief Complaint: Nausea/Vomiting ED Provider: Dino Clark Dx/Rx/DC Orders Clinical Impression: Abdominal pain, History of acute pancreatitis, History of atrial fibrillation, History of diabetes mellitus Prescriptions: No Action trazodone 150 mg tablet 200 mg PO QHS RF: 0 aspirin 81 mg tablet,delayed release (DR/EC) 81 mg PO DAILY RF: 0 metoprolol tartrate 25 mg tablet 25 mg PO BID RF: 0 pravastatin 40 mg tablet 40 mg PO DAILY RF: 0 omeprazole-sodium bicarbonate 20-1.1 mg-gram capsule 1 cap PO DAILY RF: 0 omega-3 fatty acids [Fish Oil Concentrate] 1,000 mg capsule 1,000 mg PO DAILY RF: 0 multivitamin [Daily Multi-Vitamin] Tablet 1 tab PO DAILY RF: 0 insulin aspart U-100 [Novolog Flexpen U-100 Insulin] 100 unit/mL (3 mL) insulin pen 9 unit SC TID RF: 0 tizanidine 2 mg tablet 1 tab PO DAILY RF: 0 metoclopramide HCl 5 mg tablet 5 mg PO QAC Qty: 90 RF: 0 sucralfate [Carafate] 100 mg/mL suspension 10 ml PO BID Qty: 1000 RF: 0 Ajovy Autoinjector 225 mg/1.5 mL auto-injector 225 mg SUBCUT QMONTH RF: 0 Trulicity 3 mg/0.5 mL Pen Injector 3 mg SUBCUT QWEEK RF: 0 insulin glargine 100 unit/mL Cartridge 42 unit SUBCUT QPM RF: 0 ondansetron 4 mg tablet,disintegrating 4 mg PO Q8H PRN (Reason: nausea and vomiting) Qty: 90 RF: 1 Linzess 145 mcg capsule 145 mcg PO DAILY Qty: 30 RF: 4 scopolamine base 1 mg over 3 days patch 3 day 1 patch transdermal Q72H Qty: 10 RF: 0 Primary Care Provider: Migue Silveira Referrals: Migue Silveira DO [Primary Care Provider] - Disposition Disposition: Home, Self Care
[2022-03-06] MEDS: morphine 8 MG/ML Syringe IV (18:34)
[2022-03-06] MEDS: 0.9% Normal Saline 1,000 ML 1000 ML IV (18:34)
[2022-03-06] MEDS: Ondansetron 4 MG/2 ML Vial IV (18:35)
[2022-03-06 18:43] LABS: Absolute Lymphocyte Count 1.69 X10^3/uL (0.83-4.51); Absolute Neutrophil Count 5.8 X10^3/uL (2.0-7.7); Basophil# 0.04 X10^3/uL; Basophil% 0.5 % (0-1); Eosinophil# 0.26 X10^3/uL; Eosinophils% 3.1 % (0-5); Hemoglobin 10.9 g/dL (12.0-15.0); Lymphocyte # 1.69 X10^3/ul (0.83-4.51); Lymphocyte % 20.3 % (19-41); Mean Corp Hgb Conc 32.1 g/dL (32-36); Mean Corpuscular Hgb 29.5 pg (27.0-32.0); Mean Corpuscular Volume 92.1 fL (81-99); Mean Platelet Vol. 10.8 fl (6.2-12.0); Monocyte# 0.46 X10^3/uL; Monocyte% 5.5 % (0-10); NRBC Flagged by Analyzer 0 % (0-5); Neutrophil # 5.83 X10^3/uL (2.7-7.7); Neutrophil % 70.2 % (47-70); Platelet Count 305 K/mm3 (150-450); RBC Distribution Width CV 12.2 % (11.6-14.6); RBC Distribution Width SD 41.3 fl (35.1-43.9); Red Blood Count 3.69 M/mm3 (4.2-5.4); White Blood Count 8.3 K/mm3 (4.4-11.0)
[2022-03-06 18:54] LABS: ALB/GLOB Ratio 0.5 RATIO (0.9-2.4); AST(SGOT) 11 U/L (15-37); Alanine Aminotransfer ALT/SGPT 15 U/L (13-56); Albumin, Serum 2.5 g/dL (3.2-5.0); Alkaline Phosphatase 105 U/L (45-117); Amylase 39 U/L (25-115); Anion Gap 7 (5-15); BUN 16 mg/dL (7-18); BUN/Creat Ratio 17.1 RATIO (10-20); Calcium,Total 9.5 mg/dL (8.5-10.1); Chloride 101 mmol/L (98-107); Creatinine, Serum 0.93 mg/dL (0.55-1.02); EST Glomerular Filtration Rate 67 mL/min (>60); Est Glom Filt Rate - Afr Amer 82 mL/min (>60); Estimated Creatinine Clearance 78.26 ml/min; Globulin 4.9 g/dL (2.2-4.2); Glucose 278 mg/dL (74-106); Lipase 136 U/L (73-393); Potassium 4.2 mmol/L (3.5-5.1); Protein, Total 7.4 g/dL (6.4-8.2); Sodium Level 136 mmol/L (136-145)
[2022-03-06 20:07] VITALS: BP 156/87; PULSE 76; RESP 18; O2SAT 95
== END 2022-03-06 20:08 | disposition home or self-care (01) ==
PROVIDERS: Emergency Provider Emergency Medicine; PCP Student in an Organized Health Care Education/Training Program; Visit Provider Emergency Medicine
DX: R11.2 Nausea with vomiting, unspecified (principal); E11.22 Type 2 diabetes mellitus with diabetic chronic kidney disease; E11.43 Type 2 diabetes mellitus with diabetic autonomic (poly)neuropathy; I48.91 Unspecified atrial fibrillation; Z79.4 Long term (current) use of insulin; K31.84 Gastroparesis; R10.13 Epigastric pain; N18.9 Chronic kidney disease, unspecified; I12.9 Hypertensive chronic kidney disease with stage 1 through stage 4 chronic kidney disease, or unspecified chronic kidney disease; F41.9 Anxiety disorder, unspecified; M19.90 Unspecified osteoarthritis, unspecified site; E66.9 Obesity, unspecified; Z68.34 Body mass index [BMI] 34.0-34.9, adult; Z96.89 Presence of other specified functional implants; Z90.710 Acquired absence of both cervix and uterus; Z79.82 Long term (current) use of aspirin; Z86.16 Personal history of COVID-19; Z79.899 Other long term (current) drug therapy; Z87.19 Personal history of other diseases of the digestive system
CPT/HCPCS: 80053; 82150; 83690; 85025; 96361; 96374; 96375; 99283; J7030; A4216; J2405

== ENCOUNTER 2022-03-12 13:54 | Inpatient (IN) | payer OTHER, SELFPAY ==
[2022-03-12] VITALS (11 sets, daily range): BP systolic 116–147; BP diastolic 70–94; PULSE 94–125; RESP 14–20; TEMP 36.9–39.7; O2SAT 95–99; BMI 33.7; BMI 34.6
--- NOTE | 2022-03-12 14:10 | EDS_ITS ---
HPI History of Present Illness Chief Complaint: Fever Informant: patient Narrative Narrative: 3-year-old female presenting to the emergency department for the evaluation of fever. Patient states that she had a biliary stent placed on the fifth. She states last week she had 24 hours where she had a fever and vomiting and it resolved. Last night she had a fever but it was down this morning but she redeveloped the fever and vomiting. She notes a runny nose from being hot. She denies any swelling, rashes, headache sore throat. She notes chronic diarrhea that is unchanged. She denies any current abdominal pain. [facility] Medical History Alcohol use Allergies Anemia Anxiety Arthritis Atrial fibrillation Back problem COVID Depression Dietary restriction Excessive bleeding Gastritis GERD (gastroesophageal reflux disease) Heart murmur History of cardiac murmur History of edema History of renal disease HTN (hypertension) Hyperlipidemia Insulin dependent diabetes mellitus Leg cramps Liver disease Migraine Neuropathy Non-smoker Shortness of breath on exertion Sleep apnea Tubular adenoma of colon Vitamin deficiency Wears glasses Wears partial dentures Home Medications aspirin 81 mg tablet,delayed release 81 mg PO DAILY 07/11/20 [History Last Taken 03/12/22] insulin aspart U-100 100 unit/mL (3 mL) subcutaneous pen 9 unit SC TID ml 07/11/20 [History Last Taken 03/12/22] metoprolol tartrate 25 mg tablet 25 mg PO BID 07/11/20 [History Last Taken 03/12/22] multivitamin 1 tab PO DAILY 07/11/20 [History Last Taken 03/12/22] omega-3 fatty acids 1,000 mg capsule 1,000 mg PO DAILY 07/11/20 [History Last Taken 03/12/22] pravastatin 40 mg tablet 40 mg PO DAILY 07/11/20 [History Last Taken 03/11/22] ondansetron 4 mg disintegrating tablet 4 mg PO Q8H PRN #90 tab 12/27/21 [Rx Last Taken 03/12/22] Ajovy Autoinjector 225 mg SUBCUT QMONTH 12/28/21 [History Last Taken 02/28/22] Trulicity 3 mg SUBCUT NOVA 12/28/21 [History Last Taken 03/04/22] metoclopramide HCl 5 mg tablet 5 mg PO QAC #90 tab 01/17/22 [Rx Last Taken 03/12/22] scopolamine base 1 mg over 3 days transdermal patch 1 patch TRANSDERMAL Q72H #10 ea 02/12/22 [Rx Last Taken 03/12/22] Linzess 290 mcg PO DAILY 03/12/22 [History Last Taken 03/12/22] insulin glargine [Lantus Solostar U-100 Insulin] 50 unit SUBCUT QHS 03/12/22 [History Last Taken 03/11/22] birrlv-wxarrwde-dxvrgpv 24,000-76,000-120,000 unit capsule,delayed rel 1 cap PO TID #180 cap 03/12/22 [Rx Last Taken Unknown] methocarbamol 1,500 mg PO TID 03/12/22 [History Last Taken 03/12/22] omeprazole 40 mg PO DAILY 03/12/22 [History Last Taken 03/12/22] tizanidine 4 mg PO Q8H 03/12/22 [History Last Taken 03/12/22] trazodone 200 mg PO QHS 03/12/22 [History Last Taken 03/11/22] Allergy/AdvReac Type Severity Reaction Status Date / Time lactase [From Dairy Aid] Allergy Severe diarrhea Verified 03/12/22 13:58 codeine Allergy Intermediate mental Verified 03/12/22 13:58 status diphenhydramine Allergy Intermediate mental Verified 03/12/22 13:58 [From Benadryl Allergy] status quetiapine [From Seroquel] Allergy Intermediate about Verified 03/12/22 13:58 killed me - went into DKA morphine Allergy NEEDS Verified 03/12/22 13:58 FOLLOW-UP Family History Other Arthritis Cancer Depression Diabetes Kidney disease Surgical History History of esophagogastroduodenoscopy (EGD) History of hysterectomy Hx of colonoscopy Social History Smoking Status: Never smoker alcohol intake: current ROS ROS ED Constitutional Constitutional ED: Reports chills, fever(s) and sweats; Denies weight loss Eyes Eyes: Denies change in vision or diplopia ENT ENT ED: Reports rhinorrhea; Denies ear pain or sore throat Cardiovascular Cardiovascular: Denies chest pain, orthopnea, palpitations or racing heartbeat Respiratory/Chest Respiratory/Chest: Denies cough, dyspnea or orthopnea Gastrointestinal Gastrointestinal: Reports diarrhea, nausea and vomiting; Denies abdominal pain Genitourinary Genitourinary ED: Denies dysuria, hematuria or urinary frequency Musculoskeletal Musculoskeletal: Denies arthralgias or myalgias Integumentary Denies abscess or rash Neurologic Neurologic: Denies headache(s) or weakness Psychiatric Psychiatric: Denies anxiety, depression, suicidal ideation or suicidal thoughts Endocrine Endocrinology: Denies polydipsia, polyphagia or polyuria Allergic/Immunologic Allergic/Immunologic ED: Denies mouth swelling, tongue swelling or urticaria EXAM Physical Exam Const Vital Signs: 03/12/22 13:55 03/12/22 14:04 03/12/22 16:00 Temperature 102.8 F H 103.5 F H 98.9 F Temperature Source Oral Oral Temporal Pulse Rate 125 H 112 H 105 H Respiratory Rate 20 H 16 16 Respiratory Effort Normal Respiratory Pattern Normal Blood Pressure 147/78 H 142/71 H 126/75 H Blood Pressure Mean 101 94 92 Pulse Ox 99 98 96 Oxygen Delivery Method Room Air Room Air Room Air 03/12/22 16:58 03/12/22 18:00 03/12/22 19:00 Temperature 99.5 F H 99 F 99.5 F H Temperature Source Oral Oral Temporal Pulse Rate 95 94 99 Respiratory Rate 18 14 14 Respiratory Effort Respiratory Pattern Blood Pressure 140/79 H 116/70 129/94 H Blood Pressure Mean 99 85 105 Pulse Ox 96 98 98 Oxygen Delivery Method Room Air Room Air Room Air 03/12/22 20:00 Temperature 99.4 F H Temperature Source Oral Pulse Rate 104 H Respiratory Rate 18 Respiratory Effort Respiratory Pattern Blood Pressure 133/83 H Blood Pressure Mean 99 Pulse Ox 99 Oxygen Delivery Method Room Air Positive well nourished, well developed and obese General Appearance ED: well developed Nutritional Appearance: obese HEENT Reports normocephalic, head/scalp atraumatic, TM's clear and moist mucous membranes Negative for trauma Tympanic Membrane ED: Yes TM's clear Eyes PERRL and EOMs intact bilaterally Neck no lymphadenopathy, supple and no JVD Resp normal respiratory effort and clear to auscultation bilaterally Cardio regular rate and no murmurs Rate: tachycardic GI normal to inspection, nondistended, normoactive bowel sounds and non-tender Palpation: soft Back/Spine no CVA tenderness and normal ROM Extremity normal to inspection General Extremety ED: Negative for edema General Extremity: Negative for edema Neuro oriented x3 and CN's II-XII intact bilaterally Sensorium / Orientation: alert Motor Exam: strength 5/5 throughout Psych mental status grossly normal Mood & Affect: Negative for depressed or tearful Skin no rashes or lesions noted and no wounds MDM MDM MDM Narrative Medical decision making narrative: White count elevated 16.9 with a hemoglobin of 10.1. INR 1.4 with a PTT of 27.4. Creatinine 1.17. Lactic acid is normal at 1.3. Urinalysis is contaminated but no overt infection. Lipase is 85. Bilirubin and liver enzymes unremarkable. My interpretation of the chest x-ray is atelectasis versus early infiltrate in the left lower lobe. Patient received Rocephin and azithromycin. Patient on repeat examination still is not complaining of any abdominal pain but is having increased back pain. With her history of recent pancreatitis a CT of the abdomen pelvis was ordered. This demonstrates a 9 cm fluid collection along the tail the pancreas. Possibly necrosis versus other. Patient was discussed with her mannequin wig maker Dr. Curtis. He is come to the emergency department to see her. She is received Dilaudid and Zosyn. Plan is admission into the hospital Lab Data Attestation: I reviewed the patient's lab results. Labs: Laboratory Results - last 24 hr 03/12/22 03/12/22 03/12/22 14:25 14:25 14:25 WBC 16.9 H RBC 3.43 L Hgb 10.1 L Hct 31.4 L MCV 91.5 MCH 29.4 MCHC 32.2 RDW Std Deviation 42.6 RDW Coeff of Ilene 12.8 Plt Count 333 MPV 11.1 Immature Gran % (Auto) 0.600 Neut % (Auto) 88.1 H Lymph % (Auto) 5.6 L [place] % (Auto) 5.4 Eos % (Auto) 0.1 Baso % (Auto) 0.2 Absolute Neuts (auto) 14.9 H Absolute Lymphs (auto) 0.95 Nucleated RBC % 0 PT 16.4 H INR 1.4 APTT 27.4 Sodium 135 L Potassium 3.6 Chloride 99 Carbon Dioxide 27.0 Anion Gap 9 BUN 12 Creatinine 1.17 H Estim Creat Clear Calc 62.21 Est GFR (MDRD) Af Amer 63 Est GFR (MDRD) Non-Af 52 L BUN/Creatinine Ratio 10.3 Glucose 201 H Lactic Acid Calcium 8.8 Total Bilirubin 0.50 Direct Bilirubin 0.19 AST 43 H ALT 38 Alkaline Phosphatase 137 H Troponin I High Sens < 3 L Total Protein 7.3 Albumin 2.1 L Globulin 5.2 H Lipase 85 Urine Color Urine Clarity Urine pH Ur Specific [place] Urine Protein Urine Glucose (UA) Urine Ketones Urine Occult Blood Urine Nitrite Urine Bilirubin Urine Urobilinogen Ur Leukocyte Esterase Urine RBC Urine WBC Ur Squamous Epith Cells Urine Bacteria Urine Mucus 03/12/22 03/12/22 14:25 16:00 WBC RBC Hgb Hct MCV MCH MCHC RDW Std Deviation RDW Coeff of Ilene Plt Count MPV Immature Gran % (Auto) Neut % (Auto) Lymph % (Auto) [place] % (Auto) Eos % (Auto) Baso % (Auto) Absolute Neuts (auto) Absolute Lymphs (auto) Nucleated RBC % PT INR APTT Sodium Potassium Chloride Carbon Dioxide Anion Gap BUN Creatinine Estim Creat Clear Calc Est GFR (MDRD) Af Amer Est GFR (MDRD) Non-Af BUN/Creatinine Ratio Glucose Lactic Acid 1.3 Calcium Total Bilirubin Direct Bilirubin AST ALT Alkaline Phosphatase Troponin I High Sens Total Protein Albumin Globulin Lipase Urine Color Yellow Urine Clarity Sl. Cloudy Urine pH 6.0 Ur Specific [place] 1.015 Urine Protein 100 H Urine Glucose (UA) Normal Urine Ketones 5 H Urine Occult Blood 50 H Urine Nitrite Negative Urine Bilirubin 1 H Urine Urobilinogen 4 H Ur Leukocyte Esterase 25 H Urine RBC 5-10 SEEN Urine WBC 0-5 SEEN Ur Squamous Epith Cells 5-10 SEEN Urine Bacteria 2+ Urine Mucus 1+ Radiography Diagnostic Testing: Clinical Impression(s) from Imaging Studies Chest X-Ray 03/12/22 14:45 IMPRESSION: Mild degree of increased markings at the lung bases slightly worse on the left side with blunting of the left ankle. This may represent either atelectasis and/or early infiltrates. Electronically Signed: Willian Garduno MD at 15:03 EDT , Abdomen/Pelvis CT 03/12/22 16:57 IMPRESSION: Findings concerning for focal pancreatitis of the tail the pancreas with a 9 cm acute peripancreatic fluid collection versus acute necrotic collection. Common bile duct stent in place. Electronically Signed: Sergio Ambrosio MD at 17:43 EDT , Discharge Plan Triage Chief Complaint: Fever ED Provider: Abel Raya Dx/Rx/DC Orders Clinical Impression: Sepsis, Vomiting, Acute necrosis of pancreas Prescriptions: No Action aspirin 81 mg tablet,delayed release (DR/EC) 81 mg PO DAILY RF: 0 metoprolol tartrate 25 mg tablet 25 mg PO BID RF: 0 pravastatin 40 mg tablet 40 mg PO DAILY RF: 0 omega-3 fatty acids [Fish Oil Concentrate] 1,000 mg capsule 1,000 mg PO DAILY RF: 0 multivitamin [Daily Multi-Vitamin] Tablet 1 tab PO DAILY RF: 0 insulin aspart U-100 [Novolog Flexpen U-100 Insulin] 100 unit/mL (3 mL) insulin pen 9 unit SC TID RF: 0 metoclopramide HCl 5 mg tablet 5 mg PO QAC Qty: 90 RF: 0 Ajovy Autoinjector 225 mg/1.5 mL auto-injector 225 mg SUBCUT QMONTH RF: 0 Trulicity 3 mg/0.5 mL Pen Injector 3 mg SUBCUT NOVA RF: 0 tizanidine 4 mg tablet 4 mg PO Q8H RF: 0 omeprazole 40 mg capsule,delayed release(DR/EC) 40 mg PO DAILY RF: 0 methocarbamol 750 mg tablet 1,500 mg PO TID RF: 0 trazodone 100 mg tablet 200 mg PO QHS RF: 0 Lantus Solostar U-100 Insulin 100 unit/mL (3 mL) insulin pen 50 unit SUBCUT QHS RF: 0 Linzess 145 mcg capsule 290 mcg PO DAILY RF: 0 ondansetron 4 mg tablet,disintegrating 4 mg PO Q8H PRN (Reason: nausea and vomiting) Qty: 90 RF: 1 scopolamine base 1 mg over 3 days patch 3 day 1 patch transdermal Q72H Qty: 10 RF: 0 Creon 24,000-76,000 -120,000 unit capsule,delayed release(DR/EC) 1 cap PO TID Qty: 180 RF: 4 Primary Care Provider: Migue Silveira Referrals: Migue Silveira DO [Primary Care Provider] - Disposition Disposition: Acute Care Hospital [facility]
[2022-03-12] MEDS: Acetaminophen 500 MG Tablet 1000 MG PO (14:39)
[2022-03-12] MEDS: Ondansetron 4 MG/2 ML Vial IV ×2 (14:39→19:55)
[2022-03-12] MEDS: 0.9% Normal Saline 1,000 ML 1000 ML IV (14:40)
--- NOTE | 2022-03-12 14:45 | RAD_ITS ---
STUDY: X-RAY CHEST REASON FOR EXAM: Female, 51 years old. Fever TECHNIQUE: Single AP portable view of the chest. COMPARISON: None. FINDINGS: EKG electrodes are seen. Mild increased markings at the lung bases likely more prominent on the left side suggestive of bibasilar atelectasis and/or early infiltrate. Blunting of the left cosmetic angle. Normal size heart. Normal mediastinum and margarito. Normal visualized pulmonary arteries. Normal visualized aortic arch and descending thoracic aorta. There are diffuse degenerative changes of the visualized thoracic spine. Normal visualized ribs, clavicles, and shoulders. There is no demonstrated abnormality of the visualized soft tissue structures of the upper abdomen. RAD/Chest 1 View (Portable) IMPRESSION: Mild degree of increased markings at the lung bases slightly worse on the left side with blunting of the left ankle. This may represent either atelectasis and/or early infiltrates. Electronically Signed: Willian Garduno MD at 15:03 EDT ,
[2022-03-12 14:55] LABS: Absolute Lymphocyte Count 0.95 X10^3/uL (0.83-4.51); Absolute Neutrophil Count 14.9 X10^3/uL (2.0-7.7); Basophil# 0.04 X10^3/uL; Basophil% 0.2 % (0-1); Eosinophil# 0.01 X10^3/uL; Eosinophils% 0.1 % (0-5); Hematocrit 31.4 % (37-47); Hemoglobin 10.1 g/dL (12.0-15.0); Lymphocyte # 0.95 X10^3/ul (0.83-4.51); Lymphocyte % 5.6 % (19-41); Mean Corp Hgb Conc 32.2 g/dL (32-36); Mean Corpuscular Hgb 29.4 pg (27.0-32.0); Mean Corpuscular Volume 91.5 fL (81-99); Mean Platelet Vol. 11.1 fl (6.2-12.0); Monocyte# 0.91 X10^3/uL; Monocyte% 5.4 % (0-10); NRBC Flagged by Analyzer 0 % (0-5); Neutrophil # 14.91 X10^3/uL (2.7-7.7); Neutrophil % 88.1 % (47-70); Platelet Count 333 K/mm3 (150-450); RBC Distribution Width CV 12.8 % (11.6-14.6); RBC Distribution Width SD 42.6 fl (35.1-43.9); Red Blood Count 3.43 M/mm3 (4.2-5.4); White Blood Count 16.9 K/mm3 (4.4-11.0)
[2022-03-12 15:01] LABS: International Normalized Ratio 1.4; Prothrombin Time (Protime)PT. 16.4 SECONDS (11.7-14.9)
[2022-03-12 15:02] LABS: Partial Thromboplast Time 27.4 Seconds (24.1-36.2)
[2022-03-12 15:11] LABS: AST(SGOT) 43 U/L (15-37); Alanine Aminotransfer ALT/SGPT 38 U/L (13-56); Albumin, Serum 2.1 g/dL (3.2-5.0); Alkaline Phosphatase 137 U/L (45-117); Anion Gap 9 (5-15); BUN 12 mg/dL (7-18); BUN/Creat Ratio 10.3 RATIO (10-20); Bilirubin, Direct 0.19 mg/dL (0.00-0.30); Calcium,Total 8.8 mg/dL (8.5-10.1); Chloride 99 mmol/L (98-107); Creatinine, Serum 1.17 mg/dL (0.55-1.02); EST Glomerular Filtration Rate 52 mL/min (>60); Est Glom Filt Rate - Afr Amer 63 mL/min (>60); Estimated Creatinine Clearance 62.21 ml/min; Globulin 5.2 g/dL (2.2-4.2); Glucose 201 mg/dL (74-106); Lipase 85 U/L (73-393); Potassium 3.6 mmol/L (3.5-5.1); Protein, Total 7.3 g/dL (6.4-8.2); Sodium Level 135 mmol/L (136-145); Troponin-I HS < 3 pg/mL (3.0-54.0)
[2022-03-12 15:25] LABS: Lactic Acid 1.3 mmol/L (0.4-1.9)
[2022-03-12] MEDS: 0.9% Normal Saline 1,000 ML 999 ML IV (16:03)
[2022-03-12] MEDS: Ceftriaxone 1 GM/50 ML BAG IV (16:04)
[2022-03-12 16:09] LABS: Color, Urine Yellow (Yellow); Glucose, Dipstick Normal (Normal); Ketone-Dipstick 5 mg/dl (Negative); Leukocyte Esterase-Dipstick 25 /ul (Negative); Nitrite-Dipstick Negative (Negative); Occult Blood-Urine 50 /ul (Negative); Protein-Dipstick 100 mg/dl (Negative); Specific Gravity, Urine 1.015 (1.002-1.030); Urine Clarity Sl. Cloudy (Clear); Urine Urobilinogen 4 mg/dl (Normal)
[2022-03-12 16:12] LABS: Urine Bilirubin Dipstick 1 mg/dL (Negative)
[2022-03-12 16:27] LABS: Squamous Epithelial Cells - UA 5-10 SEEN /hpf (5-10); White Blood Cells 0-5 SEEN /hpf (0-5)
[2022-03-12 16:28] LABS: Bacteria 2+ /hpf (None Seen); Mucous, Urine 1+ /hpf (<or=2+)
[2022-03-12 16:36] LABS: Red Blood Cells-Urine 5-10 SEEN /hpf (0-5)
--- NOTE | 2022-03-12 16:57 | CT_ITS ---
INDICATION: nausea and vomiting fever EXAMINATION: CT Abdomen And Pelvis W/ Contrast Injection TECHNIQUE: Helically acquired images were obtained of the abdomen and pelvis after IV contrast. A radiation dose optimization technique was used for this scan. IV Contrast dosage and agent: IV 100mL [id number]-370 Oral contrast: None. COMPARISON: None. FINDINGS: Visualized lung bases: Unremarkable Liver: Common bile duct stent in place. Gallbladder: Contracted. Spleen: Unremarkable Pancreas: There is fat stranding surrounding the tail the pancreas with a large fluid collection measuring approximately 8.3 x 8.1 x 9 cm around the tail of the pancreas. This fluid collection contains a large amount of free air Adrenal Glands: Unremarkable Kidneys: Unremarkable Vasculature: Unremarkable GI Tract: Unremarkable Lymphadenopathy: None Peritoneum: No ascites. Bladder: Unremarkable Reproductive organs: Unremarkable Bones/Soft tissues: No suspicious osseous or soft tissue lesions CT/Abdomen/Pelvis W IV Cont ONLY IMPRESSION: Findings concerning for focal pancreatitis of the tail the pancreas with a 9 cm acute peripancreatic fluid collection versus acute necrotic collection. Common bile duct stent in place. Electronically Signed: Sergio Ambrosio MD at 17:43 EDT ,
--- NOTE | 2022-03-12 19:43 | ED.RN ---
dr. rhodes to visit.
--- NOTE | 2022-03-12 19:46 | CON.PCM_ITS ---
Assessment & Plan Assessment/Plan (1) Abdominal pain: (2) Pancreatitis: PLAN: Patient likely had pancreatitis secondary to ERCP and pancreatic stent fell out. You can see the pancreatic stent on the x-ray but it is not adjacent to the biliary stent. I believe it either occurred secondary to the guidewire and the pancreatic duct and since the pancreatic stent became dislodged and led to worsening pancreatitis. She has a fluid collection in left upper quadrant that could have pancreatic necrosis. This may need drainage by IR. I would recommend Zosyn or meropenem therapy. Recommend normal saline IV fluids at 250 cc an hour. Pain control. Strict glucose control. HPI Consult Data Date of Consult: 03/12/22 HPI Narrative HPI Narrative: KORI SHEPHERD, is a 51 F who presents to the ED with fevers and abdominal pain. She has a past medical history of poorly controlled diabetes, obesity, gastroesophageal reflux disease, atrial fibrillation on aspirin therapy, diabetic gastroparesis who recently underwent ERCP for evaluation of abnormal MRCP. Her last hemoglobin A1c was 11. Prior to that it was 10.4. She says her blood sugars usually range around 4 500. She took her blood sugar this morning and it was 350. She says that she does see the liquor inspector and her diabetes is complicated by neuropathy, retinopathy and nephropathy. She has no underlying heart disease that she knows off. She does take an aspirin on a daily basis. She originally presented with complaints of abdominal pain and nausea. She had an ultrasound of the right upper quadrant and it showed a common bile duct diameter size of 1 cm in the setting of a normal gallbladder. Xray of abdomen 08.28.21 for lower abdominal pain and constipation found nonobstructive bowel gas pattern. US abdomen 11.17.21 found common duct dilation at 10mm at lópez hepatis and remain dilated into distal portion. Remained of study without abnormality. Additional medical history includes DM II with neuropathy, hematuria, depression, bipolar disorder, HTN, osteoarthritis, thyromegaly, systolic ej ection murmur. She had an MRCP recently: Nonspecific intra-and extrahepatic biliary dilatation without choledocolithiasis or noncontrast evidence to suggest obstructing mass. Common bile duct narrows as it passes between the duodenum and pancreatic parenchyma into the pancreatic segment. This is of unknown significance. Correlate with biliary labs for evidence of obstruction. Possible low inserting cystic duct. She underwent an ERCP on 03/01/2022 and was discovered to have biliary stricture w ith a dilated pancreatic duct and common bile duct. Stent was placed in the pancreatic duct to prevent post ERCP pancreatitis and a stent was placed in a common bile duct due to biliary stricture. Brushings were taken of the distal common bile duct stricture. She presented to the ED on 03/02/2022 with abdominal pain. Her amylase lipase were within normal limits. Her liver function tests were also within normal limits. She was given pain medicine and IV fluids in was discharged to home with close follow-up. She presented back to the ED today with worsening abdominal pain and fever. Her LFTs and pancreatic enzymes were still normal. Since there was no etiology of her fever a CT scan abdomen pelvis was ordered. It did show a pancreatic tail fluid collection roughly 9 cm with peripancreatic inflammation. [facility], [facility] Medical History Alcohol use Allergies Anemia Anxiety Arthritis Atrial fibrillation Back problem COVID Depression Dietary restriction Excessive bleeding Gastritis GERD (gastroesophageal reflux disease) Heart murmur History of cardiac murmur History of edema History of renal disease HTN (hypertension) Hyperlipidemia Insulin dependent diabetes mellitus Leg cramps Liver disease Migraine Neuropathy Non-smoker Shortness of breath on exertion Sleep apnea Tubular adenoma of colon Vitamin deficiency Wears glasses Wears partial dentures Home Medications aspirin 81 mg tablet,delayed release 81 mg PO DAILY 07/11/20 [History Last Taken 03/12/22] insulin aspart U-100 100 unit/mL (3 mL) subcutaneous pen 9 unit SC TID ml 07/11/20 [History Last Taken 03/12/22] metoprolol tartrate 25 mg tablet 25 mg PO BID 07/11/20 [History Last Taken 03/12/22] multivitamin 1 tab PO DAILY 07/11/20 [History Last Taken 03/12/22] omega-3 fatty acids 1,000 mg capsule 1,000 mg PO DAILY 07/11/20 [History Last Taken 03/12/22] pravastatin 40 mg tablet 40 mg PO DAILY 07/11/20 [History Last Taken 03/11/22] ondansetron 4 mg disintegrating tablet 4 mg PO Q8H PRN #90 tab 12/27/21 [Rx Last Taken 03/12/22] Ajovy Autoinjector 225 mg SUBCUT QMONTH 12/28/21 [History Last Taken 02/28/22] Trulicity 3 mg SUBCUT NOVA 12/28/21 [History Last Taken 03/04/22] metoclopramide HCl 5 mg tablet 5 mg PO QAC #90 tab 01/17/22 [Rx Last Taken 03/12/22] scopolamine base 1 mg over 3 days transdermal patch 1 patch TRANSDERMAL Q72H #10 ea 02/12/22 [Rx Last Taken 03/12/22] Linzess 290 mcg PO DAILY 03/12/22 [History Last Taken 03/12/22] insulin glargine [Lantus Solostar U-100 Insulin] 50 unit SUBCUT QHS 03/12/22 [History Last Taken 03/11/22] zdeakn-cledjvco-nglrnqw 24,000-76,000-120,000 unit capsule,delayed rel 1 cap PO TID #180 cap 03/12/22 [Rx Last Taken Unknown] methocarbamol 1,500 mg PO TID 03/12/22 [History Last Taken 03/12/22] omeprazole 40 mg PO DAILY 03/12/22 [History Last Taken 03/12/22] tizanidine 4 mg PO Q8H 03/12/22 [History Last Taken 03/12/22] trazodone 200 mg PO QHS 03/12/22 [History Last Taken 03/11/22] Allergy/AdvReac Type Severity Reaction Status Date / Time lactase [From Dairy Aid] Allergy Severe diarrhea Verified 03/12/22 13:58 codeine Allergy Intermediate mental Verified 03/12/22 13:58 status diphenhydramine Allergy Intermediate mental Verified 03/12/22 13:58 [From Benadryl Allergy] status quetiapine [From Seroquel] Allergy Intermediate about Verified 03/12/22 13:58 killed me - went into DKA morphine Allergy NEEDS Verified 03/12/22 13:58 FOLLOW-UP Family History Other Arthritis Cancer Depression Diabetes Kidney disease Surgical History History of esophagogastroduodenoscopy (EGD) History of hysterectomy Hx of colonoscopy Social History Smoking Status: Never smoker alcohol intake: current ROS Gastrointestinal Gastrointestinal: Reports abdominal pain Musculoskeletal Musculoskeletal: Reports other Details: Back pain Physical Exam Const alert General Appearance: cooperative Orientation / Consciousness: oriented to person HEENT hearing grossly normal bilaterally Head and Scalp: normal to inspection Face and Sinus: face symmetric Nose: external nose normal Mouth: oral and palatal mucosa normal Eyes conjunctivae normal General Eye: normal appearance of both eyes Neck full ROM General: normal visual inspection Lymph Lymphatic: no lymphadenopathy noted Chest inspection of chest normal and palpation of chest normal Chest: symmetrical chest wall rise Resp normal respiratory effort Effort and Inspection: able to speak in complete sentences Cardio regular rate GI non-distended Percussion: normal to percussion Rectal Exam: deferred Neuro Speech: speech normal Gait (Neuro): normal gait Lab / Micro Data Result Diagrams: 03/12/22 14:25 03/12/22 14:25 Labs: Laboratory Results - last 24 hr 03/12/22 14:25: WBC 16.9 H, RBC 3.43 L, Hgb 10.1 L, Hct 31.4 L, MCV 91.5, MCH 29.4, MCHC 32.2, RDW Std Deviation 42.6, RDW Coeff of Ilene 12.8, Plt Count 333, MPV 11.1, Immature Gran % (Auto) 0.600, Neut % (Auto) 88.1 H, Lymph % (Auto) 5.6 L, [place] % (Auto) 5.4, Eos % (Auto) 0.1, Baso % (Auto) 0.2, Absolute Neuts (auto) 14.9 H, Absolute Lymphs (auto) 0.95, Nucleated RBC % 0 03/12/22 14:25: PT 16.4 H, INR 1.4, APTT 27.4 03/12/22 14:25: Sodium 135 L, Potassium 3.6, Chloride 99, Carbon Dioxide 27.0, Anion Gap 9, BUN 12, Creatinine 1.17 H, Estim Creat Clear Calc 62.21, Est GFR (MDRD) Af Amer 63, Est GFR (MDRD) Non-Af 52 L, BUN/Creatinine Ratio 10.3, Glucose 201 H, Calcium 8.8, Total Bilirubin 0.50, Direct Bilirubin 0.19, AST 43 H, ALT 38, Alkaline Phosphatase 137 H, Troponin I High Sens < 3 L, Total Protein 7.3, Albumin 2.1 L, Globulin 5.2 H, Lipase 85 03/12/22 14:25: Lactic Acid 1.3 03/12/22 16:00: Urine Color Yellow, Urine Clarity Sl. Cloudy, Urine pH 6.0, Ur Specific [place] 1.015, Urine Protein 100 H, Urine Glucose (UA) Normal, Urine Ketones 5 H, Urine Occult Blood 50 H, Urine Nitrite Negative, Urine Bilirubin 1 H, Urine Urobilinogen 4 H, Ur Leukocyte Esterase 25 H, Urine RBC 5-10 SEEN, Urine WBC 0-5 SEEN, Ur Squamous Epith Cells 5-10 SEEN, Urine Bacteria 2+, Urine Mucus 1+ Micro: Microbiology 03/12/22 14:30 Nasal Secretion SARS-CoV-2 & FLU Antigen (Rapid) - Final Radiology Impression Chest X-Ray 03/12/22 14:45 IMPRESSION: Mild degree of increased markings at the lung bases slightly worse on the left side with blunting of the left ankle. This may represent either atelectasis and/or early infiltrates. Electronically Signed: Willian Garduno MD at 15:03 EDT , Abdomen/Pelvis CT 03/12/22 16:57 IMPRESSION: Findings concerning for focal pancreatitis of the tail the pancreas with a 9 cm acute peripancreatic fluid collection versus acute necrotic collection. Common bile duct stent in place. Electronically Signed: Sergio Ambrosio MD at 17:43 EDT , Charges/Coding Visit Charges Inpatient E&M: 82522 Init Hosp L2
[2022-03-12] MEDS: HYDROmorphone 1 MG/ML Syringe IV (19:55)
--- NOTE | 2022-03-12 20:31 | HP.PCM_ITS ---
HPI - General HPI Narrative KORI SHEPHERD, is a 51 F who presents to the emergency room with right upper quadrant abdominal pain that is 10/10. Patient has significant past medical history of biliary stent placement on March 01. Patient has continued to have difficulty eating postprocedure but today her pain became more severe and she came to be evaluated. CT scan of the abdomen shows a fluid collection around the pancreas that may represent necrosis. Since receiving Dilaudid in the emergency room her pain is now under control. Laboratory studies reveal an elevated white blood cell count of 16,000 and recommendation to start IV anti biotics was made. Patient denies any skin infections, chest x-ray is unremarkable and she denies any chest pain or shortness of breath at present time. Patient will be admitted to progressive care unit placed on [facility] and Dr. Curtis consult for continued management. [facility] Medical History Alcohol use Allergies Anemia Anxiety Arthritis Atrial fibrillation Back problem COVID Depression Dietary restriction Excessive bleeding Gastritis GERD (gastroesophageal reflux disease) Heart murmur History of cardiac murmur History of edema History of renal disease HTN (hypertension) Hyperlipidemia Insulin dependent diabetes mellitus Leg cramps Liver disease Migraine Neuropathy Non-smoker Shortness of breath on exertion Sleep apnea Tubular adenoma of colon Vitamin deficiency Wears glasses Wears partial dentures Home Medications aspirin 81 mg tablet,delayed release 81 mg PO DAILY 07/11/20 [History Last Taken 03/12/22] insulin aspart U-100 100 unit/mL (3 mL) subcutaneous pen 9 unit SC TID ml 07/11/20 [History Last Taken 03/12/22] metoprolol tartrate 25 mg tablet 25 mg PO BID 07/11/20 [History Last Taken 03/12/22] multivitamin 1 tab PO DAILY 07/11/20 [History Last Taken 03/12/22] omega-3 fatty acids 1,000 mg capsule 1,000 mg PO DAILY 07/11/20 [History Last Taken 03/12/22] pravastatin 40 mg tablet 40 mg PO DAILY 07/11/20 [History Last Taken 03/11/22] ondansetron 4 mg disintegrating tablet 4 mg PO Q8H PRN #90 tab 12/27/21 [Rx Last Taken 03/12/22] Ajovy Autoinjector 225 mg SUBCUT QMONTH 12/28/21 [History Last Taken 02/28/22] Trulicity 3 mg SUBCUT NOVA 12/28/21 [History Last Taken 03/04/22] metoclopramide HCl 5 mg tablet 5 mg PO QAC #90 tab 01/17/22 [Rx Last Taken 03/12/22] scopolamine base 1 mg over 3 days transdermal patch 1 patch TRANSDERMAL Q72H #10 ea 02/12/22 [Rx Last Taken 03/12/22] Linzess 290 mcg PO DAILY 03/12/22 [History Last Taken 03/12/22] insulin glargine [Lantus Solostar U-100 Insulin] 50 unit SUBCUT QHS 03/12/22 [H istory Last Taken 03/11/22] ngspcg-[id number]-sggrnpa 24,000-76,000-120,000 unit capsule,delayed rel 1 cap PO TID #180 cap 03/12/22 [Rx Last Taken Unknown] methocarbamol 1,500 mg PO TID 03/12/22 [History Last Taken 03/12/22] omeprazole 40 mg PO DAILY 03/12/22 [History Last Taken 03/12/22] tizanidine 4 mg PO Q8H 03/12/22 [History Last Taken 03/12/22] trazodone 200 mg PO QHS 03/12/22 [History Last Taken 03/11/22] Allergy/AdvReac Type Severity Reaction Status Date / Time lactase [From Dairy Aid] Allergy Severe diarrhea Verified 03/12/22 13:58 codeine Allergy Intermediate mental Verified 03/12/22 13:58 status diphenhydramine Allergy Intermediate mental Verified 03/12/22 13:58 [From Benadryl Allergy] status quetiapine [From Seroquel] Allergy Intermediate about Verified 03/12/22 13:58 killed me - went into DKA morphine Allergy NEEDS Verified 03/12/22 13:58 FOLLOW-UP Family History Other Arthritis Cancer Depression Diabetes Kidney disease Surgical History History of esophagogastroduodenoscopy (EGD) History of hysterectomy Hx of colonoscopy Social History Smoking Status: Never smoker alcohol intake: current ROS Constitutional Constitutional: Reports chills and fever(s) Eyes Eyes: Denies blurry vision ENT HEENT: Denies abnormal hearing Cardiovascular Cardiovascular: Denies chest pain Respiratory/Chest Respiratory/Chest: Denies cough Gastrointestinal Gastrointestinal: Reports abdominal pain and nausea Genitourinary Genitourinary: Denies dysuria Musculoskeletal Musculoskeletal: Reports back pain Integumentary Integumentary: Denies dry skin Neurologic Neurologic: Denies abnormal gait Psychiatric Psychiatric: Denies anxiety Vital Signs Vital Signs Vital Signs: 03/12/22 13:55 03/12/22 14:04 03/12/22 16:00 Temperature 102.8 F H 103.5 F H 98.9 F Temperature Source Oral Oral Temporal Pulse Rate 125 H 112 H 105 H Respiratory Rate 20 H 16 16 Respiratory Effort Normal Respiratory Pattern Normal Blood Pressure 147/78 H 142/71 H 126/75 H Blood Pressure Mean 101 94 92 Pulse Ox 99 98 96 Oxygen Delivery Method Room Air Room Air Room Air 03/12/22 16:58 03/12/22 18:00 03/12/22 19:00 Temperature 99.5 F H 99 F 99.5 F H Temperature Source Oral Oral Temporal Pulse Rate 95 94 99 Respiratory Rate 18 14 14 Respiratory Effort Respiratory Pattern Blood Pressure 140/79 H 116/70 129/94 H Blood Pressure Mean 99 85 105 Pulse Ox 96 98 98 Oxygen Delivery Method Room Air Room Air Room Air 03/12/22 20:00 Temperature 99.4 F H Temperature Source Oral Pulse Rate 104 H Respiratory Rate 18 Respiratory Effort Respiratory Pattern Blood Pressure 133/83 H Blood Pressure Mean 99 Pulse Ox 99 Oxygen Delivery Method Room Air Weight Weight: 235 lb Body Mass Index (BMI) 33.7 Physical Exam Const oriented x3 General Appearance: cooperative HEENT normocephalic and head/scalp atraumatic Eyes PERRL Neck supple Lymph Lymphatic: no lymphadenopathy noted Resp normal respiratory effort and clear to auscultation bilaterally Cardio regular rate, regular rhythm, S1 normal heart sound and S2 normal heart sound GI Inspection: abdominal distention Palpation: tender RUQ Extremity no clubbing, cyanosis or edema Skin General Skin Exam: turgor normal Neuro CN's II-XII intact bilaterally Psych affect normal Results Lab / Micro Data Result Diagrams: 03/12/22 14:25 03/12/22 14:25 Labs: Laboratory Results - last 24 hr 03/12/22 14:25: WBC 16.9 H, RBC 3.43 L, Hgb 10.1 L, Hct 31.4 L, MCV 91.5, MCH 29.4, MCHC 32.2, RDW Std Deviation 42.6, RDW Coeff of [place]ene 12.8, Plt Count 333, MPV 11.1, Immature Gran % (Auto) 0.600, Neut % (Auto) 88.1 H, Lymph % (Auto) 5.6 L, [place] % (Auto) 5.4, Eos % (Auto) 0.1, Baso % (Auto) 0.2, Absolute Neuts (auto) 14.9 H, Absolute Lymphs (auto) 0.95, Nucleated RBC % 0 03/12/22 14:25: PT 16.4 H, INR 1.4, APTT 27.4 03/12/22 14:25: Sodium 135 L, Potassium 3.6, Chloride 99, Carbon Dioxide 27.0, Anion Gap 9, BUN 12, Creatinine 1.17 H, Estim Creat Clear Calc 62.21, Est GFR (MDRD) Af Amer 63, Est GFR (MDRD) Non-Af 52 L, BUN/Creatinine Ratio 10.3, Glucos e 201 H, Calcium 8.8, Total Bilirubin 0.50, Direct Bilirubin 0.19, AST 43 H, ALT 38, Alkaline Phosphatase 137 H, Troponin I High Sens < 3 L, Total Protein 7.3, Albumin 2.1 L, Globulin 5.2 H, Lipase 85 03/12/22 14:25: Lactic Acid 1.3 03/12/22 16:00: Urine Color Yellow, Urine Clarity Sl. Cloudy, Urine pH 6.0, Ur Specific [place] 1.015, Urine Protein 100 H, Urine Glucose (UA) Normal, Urine Ketones 5 H, Urine Occult Blood 50 H, Urine Nitrite Negative, Urine Bilirubin 1 H, Urine Urobilinogen 4 H, Ur Leukocyte Esterase 25 H, Urine RBC 5-10 SEEN, Urine WBC 0-5 SEEN, Ur Squamous Epith Cells 5-10 SEEN, Urine Bacteria 2+, Urine Mucus 1+ Micro: Microbiology 03/12/22 14:30 Nasal Secretion SARS-CoV-2 & FLU Antigen (Rapid) - Final Radiology Impression Chest X-Ray 03/12/22 14:45 IMPRESSION: Mild degree of increased markings at the lung bases slightly worse on the left side with blunting of the left ankle. This may represent either atelectasis and/or early infiltrates. Electronically Signed: Willian Garduno MD at 15:03 EDT , Abdomen/Pelvis CT 03/12/22 16:57 IMPRESSION: Findings concerning for focal pancreatitis of the tail the pancreas with a 9 cm acute peripancreatic fluid collection versus acute necrotic collection. Common bile duct stent in place. Electronically Signed: Sergio Ambrosio MD at 17:43 EDT , Assessment & Plan Assessment/Plan (1) Vomiting: (2) Acute necrosis of pancreas: (3) Pancreatitis: (4) Abdominal pain: (5) History of atrial fibrillation: (6) History of diabetes mellitus: (7) Benign essential hypertension: (8) Mixed hyperlipidemia: (9) Obesity: QUALIFIERS: Obesity type: due to excess calories Obesity classification: adult class 1 (BMI 30 - 34.9) Serious obesity comorbidity presence: with serious comorbidity Body mass index: BMI 30.0-30.9 Qualified Code(s): E66.09 - Other obesity due to excess calories; Z68.30 - Body mass index (BMI) 30.0-30.9, adult PLAN: 1 acute pancreatitis with possible necrosis and fluid collection at the tail of pancreas?admit patient to progressive care unit, maintain patient n.p.o., continue IV Zosyn, IV normal saline 250 cc/h, consult Dr. Curtis, continue Dilaudid as needed for pain and Zofran as needed for nausea, repeat CBC CMP amylase and lipase in the morning 2. History of atrial fibrillation we will discontinue anticoagulation we will give Lovenox tonight 3. History of diabetes?monitor blood sugar 4. Hyperlipidemia?we will hold statin while n.p.o. 5. DVT prophylaxis?we will give a dose of low molecular weight heparin this evening Charges/Coding Visit Charges Inpatient E&M: 32189 Init Hosp L3
[2022-03-13] VITALS (13 sets, daily range): BP systolic 129–150; BP diastolic 75–84; PULSE 91–119; RESP 16–18; TEMP 36.7–37.4; O2SAT 93–98
[2022-03-13] MEDS: HYDROmorphone 1 MG/ML Syringe IV ×5 (00:31→20:36)
[2022-03-13] MEDS: Metoclopramide 10 MG/2 ML Vial 5 MG IV ×4 (00:31→23:24)
[2022-03-13] MEDS: 0.9% Saline Lock 10 ML Syringe IV (00:31)
[2022-03-13] MEDS: traZODone 100 MG Tablet 200 MG PO ×2 (00:32→22:49)
[2022-03-13] MEDS: 0.9% Normal Saline 1,000 ML 250 ML IV ×5 (00:36→20:21)
[2022-03-13 01:16] LABS: Bedside Glucose 198 mg/dL (74-106)
[2022-03-13 05:46] LABS: Bedside Glucose 176 mg/dL (74-106)
[2022-03-13 06:29] LABS: Absolute Lymphocyte Count 1.06 X10^3/uL (0.83-4.51); Absolute Neutrophil Count 11.4 X10^3/uL (2.0-7.7); Basophil# 0.02 X10^3/uL; Basophil% 0.1 % (0-1); Eosinophil# 0.06 X10^3/uL; Eosinophils% 0.4 % (0-5); Hematocrit 29.3 % (37-47); Lymphocyte # 1.06 X10^3/ul (0.83-4.51); Lymphocyte % 7.9 % (19-41); Mean Corp Hgb Conc 30.7 g/dL (32-36); Mean Corpuscular Hgb 28.7 pg (27.0-32.0); Mean Corpuscular Volume 93.3 fL (81-99); Mean Platelet Vol. 10.9 fl (6.2-12.0); Monocyte% 5.9 % (0-10); NRBC Flagged by Analyzer 0 % (0-5); Neutrophil # 11.44 X10^3/uL (2.7-7.7); Neutrophil % 84.8 % (47-70); Platelet Count 301 K/mm3 (150-450); RBC Distribution Width CV 12.9 % (11.6-14.6); Red Blood Count 3.14 M/mm3 (4.2-5.4); White Blood Count 13.5 K/mm3 (4.4-11.0)
[2022-03-13 06:56] LABS: ALB/GLOB Ratio 0.4 RATIO (0.9-2.4); AST(SGOT) 39 U/L (15-37); Alanine Aminotransfer ALT/SGPT 39 U/L (13-56); Albumin, Serum 1.7 g/dL (3.2-5.0); Alkaline Phosphatase 115 U/L (45-117); Amylase 19 U/L (25-115); Anion Gap 8 (5-15); BUN 8 mg/dL (7-18); BUN/Creat Ratio 9.3 RATIO (10-20); Calcium,Total 8.1 mg/dL (8.5-10.1); Chloride 107 mmol/L (98-107); Creatinine, Serum 0.86 mg/dL (0.55-1.02); EST Glomerular Filtration Rate 74 mL/min (>60); Est Glom Filt Rate - Afr Amer 89 mL/min (>60); Estimated Creatinine Clearance 84.63 ml/min; Globulin 4.7 g/dL (2.2-4.2); Glucose 212 mg/dL (74-106); Lipase 49 U/L (73-393); Potassium 3.3 mmol/L (3.5-5.1); Protein, Total 6.4 g/dL (6.4-8.2); Sodium Level 137 mmol/L (136-145)
[2022-03-13] MEDS: Potassium Chloride Oral Tablet 20 MEQ 40 MEQ PO (09:29)
[2022-03-13] MEDS: Ondansetron 4 MG/2 ML Vial IV ×2 (09:36→18:32)
[2022-03-13] MEDS: Albumin Human 25% (50 mL) 12.5 GM/50 ML IV.SOLN IV ×3 (10:26→23:07)
[2022-03-13] MEDS: Insulin Lispro 100 UNIT/ML INSULN.PEN SC ×2 (11:31→17:05)
--- NOTE | 2022-03-13 11:35 | CASEMGMT ---
RN QUINCY Face to Face with patient for initial transition planning/care coordination assessment. RN CM introduced self and role at [facility]. Patient lying in bed, alert and oriented. Patient willing to participate in assessment and is able to answer all questions appropriately. Care providers, pharmacy, and demographics verified. Patient wishes to discharge home, denies need for home health at this time. Patient states she has no further needs or concerns at this time. CM to follow for discharge planning needs that may arise. PCP: Jordana Specialists: Friend, GI; Neurology, [place]; [place] [facility] Preferred Pharmacy: [facility] Insurance: [facility] Prescription Benefit: yes Living Will/HPOA: none LNOK: Living Arrangements: Patient and are currently staying at hotel. Patient states she is independent and able to ambulate stairs. Transportation: self, DME/HHC: Patient denies DME or previous HHC Disposition Plan: Patient to discharge home with family support and follow-up plans in place. Estefania DESHPANDE, RN, CM
[2022-03-13 11:46] LABS: Bedside Glucose 219 mg/dL (74-106)
--- NOTE | 2022-03-13 12:56 | PN.HOSP_ITS ---
Documented by User: Anthony MANCILLA 03/13/22 13:10 Subjective Subjective Patient is a 51-year-old female comfortably resting in alert and orient x3. Patient still reports diffuse abdominal pain to palpation, denies any further episodes of nausea or vomiting. Does not appear in acute distress. Objective Data Objective Data Vital Signs: Vital Signs Temp Pulse Resp BP Pulse Ox 98.3 F 102 H 16 138/83 H 94 03/13/22 09:16 03/13/22 09:16 03/13/22 09:16 03/13/22 09:03/13/22 09:16 Oxygen Delivery Method Room Air Weight: 241 lb 6.499 oz Body Mass Index (BMI) 34.6 Intake & Output: Intake and Output for Last 24 Hours 03/11/22 03/12/22 03/13/22 23:59 23:59 23:59 Intake Total 2405 / 2405 2338.33 / 2338.33 Balance 2405 / 2405 2338.33 / 2338.33 Lab / Micro Data Result Diagrams: 03/13/22 06:10 03/13/22 06:10 Labs: Laboratory Results - last 24 hr 03/12/22 14:25: WBC 16.9 H, RBC 3.43 L, Hgb 10.1 L, Hct 31.4 L, MCV 91.5, MCH 29 .4, MCHC 32.2, RDW Std Deviation 42.6, RDW Coeff of [place] 12.8, Plt Count 333, MPV 11.1, Immature Gran % (Auto) 0.600, Neut % (Auto) 88.1 H, Lymph % (Auto) 5.6 L, [place] % (Auto) 5.4, Eos % (Auto) 0.1, Baso % (Auto) 0.2, Absolute Neuts (auto) 14.9 H, Absolute Lymphs (auto) 0.95, Nucleated RBC % 0 03/12/22 14:25: PT 16.4 H, INR 1.4, APTT 27.4 03/12/22 14:25: Sodium 135 L, Potassium 3.6, Chloride 99, Carbon Dioxide 27.0, Anion Gap 9, BUN 12, Creatinine 1.17 H, Estim Creat Clear Calc 62.21, Est GFR (MDRD) Af Amer 63, Est GFR (MDRD) Non-Af 52 L, BUN/Creatinine Ratio 10.3, Glucose 201 H, Calcium 8.8, Total Bilirubin 0.50, Direct Bilirubin 0.19, AST 43 H, ALT 38, Alkaline Phosphatase 137 H, Troponin I High Sens < 3 L, Total Protein 7.3, Albumin 2.1 L, Globulin 5.2 H, Lipase 85 03/12/22 14:25: Lactic Acid 1.3 03/12/22 16:00: Urine Color Yellow, Urine Clarity Sl. Cloudy, Urine pH 6.0, Ur Specific [place] 1.015, Urine Protein 100 H, Urine Glucose (UA) Normal, Urine Ketones 5 H, Urine Occult Blood 50 H, Urine Nitrite Negative, Urine Bilirubin 1 H, Urine Urobilinogen 4 H, Ur Leukocyte Esterase 25 H, Urine RBC 5-10 SEEN, Urine WBC 0-5 SEEN, Ur Squamous Epith Cells 5-10 SEEN, Urine Bacteria 2+, Urine Mucus 1+ 03/13/22 00:45: POC Glucose 198 H 03/13/22 05:35: POC Glucose 176 H 03/13/22 06:10: WBC 13.5 H, RBC 3.14 L, Hgb 9.0 L, Hct 29.3 L, MCV 93.3, MCH 28.7, MCHC 30.7 L, RDW Std Deviation 44.0 H, RDW Coeff of [place]ene 12.9, Plt Count 301, MPV 10.9, Immature Gran % (Auto) 0.900, Neut % (Auto) 84.8 H, Lymph % (Auto) 7.9 L, [place] % (Auto) 5.9, Eos % (Auto) 0.4, Baso % (Auto) 0.1, Absolute Neuts (auto) 11.4 H, Absolute Lymphs (auto) 1.06, Nucleated RBC % 0 03/13/22 06:10: Sodium 137, Potassium 3.3 L, Chloride 107, Carbon Dioxide 22.0, Anion Gap 8, BUN 8, Creatinine 0.86, Estim Creat Clear Calc 84.63, Est GFR (MDRD) Af Amer 89, Est GFR (MDRD) Non-Af 74, BUN/Creatinine Ratio 9.3 L, Glucose 212 H, Calcium 8.1 L, Total Bilirubin 0.40, AST 39 H, ALT 39, Alkaline Phosphatase 115, Total Protein 6.4, Albumin 1.7 L, Globulin 4.7 H, Albumin/Globulin Ratio 0.4 L, Amylase 19 L, Lipase 49 L 03/13/22 11:30: POC Glucose 219 H Micro: Microbiology 03/12/22 14:30 Nasal Secretion SARS-CoV-2 & FLU Antigen (Rapid) - Final Radiography Diagnostic Testing: Radiology Impression Chest X-Ray 03/12/22 14:45 IMPRESSION: Mild degree of increased markings at the lung bases slightly worse on the left side with blunting of the left ankle. This may represent either atelectasis and/or early infiltrates. Electronically Signed: Willian Garduno MD at 15:03 EDT , Abdomen/Pelvis CT 03/12/22 16:57 IMPRESSION: Findings concerning for focal pancreatitis of the tail the pancreas with a 9 cm acute peripancreatic fluid collection versus acute necrotic collection. Common bile duct stent in place. Electronically Signed: Sergio Ambrosio MD at 17:43 EDT , Physical Exam Const alert, oriented x3 and no apparent distress HEENT head/scalp atraumatic and moist oral mucous membranes Head and Scalp: normocephalic Eyes PERRL, EOMs intact bilaterally and conjunctivae normal Neck no lymphadenopathy, supple and no JVD Resp normal respiratory effort, no retractions and no use of accessory muscles Cardio regular rhythm and no JVD Rate: tachycardic GI Inspection: abdominal distention Palpation: firm and tender Extremity normal to inspection, full ROM and no clubbing, cyanosis or edema Skin no rashes or lesions noted, no wounds and no jaundice Neuro CN's II-XII intact bilaterally Psych affect normal Assessment & Plan Assessment/Plan (1) Abdominal pain: (2) Pancreatitis: (3) Acute necrosis of pancreas: (4) Vomiting: PLAN: Day 1 Discharge planning: Patient to discharge home when medically ready. 1) acute pancreatitis with possible necrosis Patient still with diffuse abdominal pain to palpation throughout the abdomen. Patient recently had biliary stent placed by Dr. Curtis on March 01. Patient denies history of pancreatitis, denies any history of gallstones, does report to drinking about [address] of the abdomen/pelvis demonstrates focal pancreatitis at the tail of the pancreas with 9 cm acute peripancreatic fluid collection with possible acute necrotic collection. Currently awaiting GI consult, continue IV Zosyn, IV fluids, continue n.p.o. status and repeat labs in AM, continue as needed medications. 2) hypokalemia Potassium currently 3.3, replaced we will continue to trend BMP. 3) atrial fibrillation Patient on metoprolol for rate control. Does not appear to be on any anticoagulation. [id number] score is 3. initiate IV metoprolol. Should be considered for anticoagulation prior to discharge, will continue Lovenox for now. 4) DM2 Initiate Accu-Cheks assigned scale insulin. 5) hyperlipidemia On appropriate statin regimen, will hold due to current n.p.o. status. DVT prophylaxis - Lovenox Patient seen by Anthony Byrne PA-C, under the supervision of Dr. Alvarez. Documented by User: Dr. Antonio Alvarez MD 03/13/22 14:30 Objective Data Lab / Micro Data Result Diagrams: 03/13/22 06:10 03/13/22 06:10 Assessment & Plan Addt'l Comments This patient was seen in conjunction with Anthony Byrne PA-C. I have independently interviewed and examined the patient and reviewed pertinent historical, laboratory, and other data. Please refer to Anthony Byrne PA-C's note for details of this patient's presentation, findings, and recommendations. I have reviewed Anthony Byrne PA-C's note and concur with documented findings. In brief, patient is a 51-year-old lady who presented with fever and abdominal pain imaging studies obtained on admission came back consistent with necrotizing pancreatitis admitted to monitored bed with consultation placed to GI Dr. Curtis Physical Examination: GENERAL: cooperative HEENT: Atraumatic; EYES; Anicteric, Normal Conjunctiva NECK; supple, normal thyroid, RESPIRATORY: Diminished to auscultation CARDIOVASCULAR: Regular S1 S2, GI: soft, normoactive bowel sounds, : No Renal angle tenderness; EXTREMITIES: No edema, no clubbing, MUSCULOSKELETAL: no muscle wasting NEURO: Awake; no lateralizing signs. SKIN: No Rash PSYCH; Flat affect Assessment: 1. Necrotizing pancreatitis 2. Recent ERCP on 03/01/2022 3. Diabetes mellitus type 2 4. Chronic kidney disease stage III 5. Gastroparesis 6. Essential hypertension 7. Dyslipidemia 8. Class I obesity with BMI of 34.6 9. Hypokalemia 10. DVT prophylaxis Recommendations: 1. I have discussed the results of my overview and impressions with the patient 2. Options for management were reviewed Total time spent by myself and the advanced practice practitioner evaluating pat ient, reviewing labs, subsequent management decisions, discussion with patient as well as other providers 40 minutes ( 25 of which was spent by myself) Charges/Coding Visit Charges Inpatient E&M: 01866 Subs Hosp L3
[2022-03-13] MEDS: Metoprolol Tartrate 5 MG/5 ML Vial IV ×2 (14:13→22:50)
--- NOTE | 2022-03-13 16:07 | CHAPLAIN ---
Type of Pastoral Visit __x_ Initial Visit ___ Follow-up Visit ___ On-call Visit ___ General Patient Visit ___ Spiritual Assessment ___ Family Conference ___ Bereavement ___ Rapid Response ___ Code Blue ___ Other (describe below) Pastoral Care Referral From _x__ Patient ___ Family ___ Nurse ___ Physician ___ Local Owner Operator Truck Driver ___ Custom Motorcycle Painter ___ Other (describe below) Sacrament/Intervention _x__ Active listening ___ Anointing ___ Mandaen ___ Bereavement ___ Communion _x__ Dana exploration ___ _x__ Life review _x__ Prayer ___ Reconciliation ___ Sacrament of Sick __x_ Supportive presence ___ Wedding ___ Other (describe below) Pastoral Comments patient admits she is trying to stay positive and not cry about her situation; pt has small support system; 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
[2022-03-13 17:15] LABS: Bedside Glucose 202 mg/dL (74-106)
--- NOTE | 2022-03-13 18:12 | PN_ITS ---
Subjective Subjective Her abdominal pain is a little better but she still is having back pain that does radiate around to the left side. Her nausea is about the same. She denied any dark stools or diarrhea. She has been sleeping a lot and has been in her chair most of the day. Objective Data Objective Data Vital Signs: Vital Signs Temp Pulse Resp BP Pulse Ox 98.9 F 94 16 141/81 H 93 03/13/22 16:53 03/13/22 16:53 03/13/22 16:53 03/13/22 16:53 03/13/22 16:53 Oxygen Delivery Method Room Air Weight: 241 lb 6.499 oz Body Mass Index (BMI) 34.6 Intake & Output: Intake and Output for Last 24 Hours 03/11/22 03/12/22 03/13/22 23:59 23:59 23:59 Intake Total 2405 / 2405 3180.00 / 3180.00 Balance 2405 / 2405 3180.00 / 3180.00 Medical Nutrition Assessment Dietitian: Malnutrition Criteria Met Start: 03/13/22 15:29 Freq: Status: Active Protocol: Document 03/13/22 14:54 AG (Rec: 03/13/22 15:29 AG [id number]) Nutrition Malnutrition Evidence of Malnutrition Exists Yes Malnutrition (severe): Chronic Evidenced By Suboptimal Energy Intake ( Severe),Weight Loss (Severe) Clinical Problem Chronic Disease or Condition Related Malnutrition Etiology severe, chronic malnutrition r /t GI dysfunction Signs/Symptoms as evidenced by estimated PO intake meeting <75% of estimated energy needs >3 months; unintentional wt loss of 38.6#/14% x 5 months Status Active Problem Recommendation Dietitian Recommendations/Changes recommend advance diet as tolerated to CHO controlled, fat restricted, may benefit from ensure clear w/ medpass once diet advanced given malnutrition; consider nutrition support if unable to advance diet- consult RDN for further recommendations as indicated. Lab / Micro Data Result Diagrams: 03/13/22 06:10 03/13/22 06:10 Labs: Laboratory Results - last 24 hr 03/13/22 00:45: POC Glucose 198 H 03/13/22 05:35: POC Glucose 176 H 03/13/22 06:10: WBC 13.5 H, RBC 3.14 L, Hgb 9.0 L, Hct 29.3 L, MCV 93.3, MCH 28.7, MCHC 30.7 L, RDW Std Deviation 44.0 H, RDW Coeff of [place] 12.9, Plt Count 3 01, MPV 10.9, Immature Gran % (Auto) 0.900, Neut % (Auto) 84.8 H, Lymph % (Auto) 7.9 L, [place] % (Auto) 5.9, Eos % (Auto) 0.4, Baso % (Auto) 0.1, Absolute Neuts (auto) 11.4 H, Absolute Lymphs (auto) 1.06, Nucleated RBC % 0 03/13/22 06:10: Sodium 137, Potassium 3.3 L, Chloride 107, Carbon Dioxide 22.0, Anion Gap 8, BUN 8, Creatinine 0.86, Estim Creat Clear Calc 84.63, Est GFR (MDRD) Af Amer 89, Est GFR (MDRD) Non-Af 74, BUN/Creatinine Ratio 9.3 L, Glucose 212 H, Calcium 8.1 L, Total Bilirubin 0.40, AST 39 H, ALT 39, Alkaline Phosphatase 115, Total Protein 6.4, Albumin 1.7 L, Globulin 4.7 H, Albumin/Globulin Ratio 0.4 L, Amylase 19 L, Lipase 49 L 03/13/22 11:30: POC Glucose 219 H 03/13/22 17:03: POC Glucose 202 H Micro: Microbiology 03/12/22 14:30 Nasal Secretion SARS-CoV-2 & FLU Antigen (Rapid) - Final Physical Exam Const alert General Appearance: cooperative Orientation / Consciousness: oriented to person HEENT hearing grossly normal bilaterally Head and Scalp: normal to inspection Face and Sinus: face symmetric Nose: external nose normal Mouth: oral and palatal mucosa normal Eyes conjunctivae normal General Eye: normal appearance of both eyes Neck full ROM General: normal visual inspection Lymph Lymphatic: no lymphadenopathy noted Chest inspection of chest normal and palpation of chest normal Chest: symmetrical chest wall rise Resp normal respiratory effort Effort and Inspection: able to speak in complete sentences Cardio regular rate GI soft to palpation Auscultation: normoactive bowel sounds Percussion: normal to percussion Rectal Exam: deferred Neuro Speech: speech normal Gait (Neuro): normal gait Assessment & Plan Assessment/Plan (1) History of acute pancreatitis: PLAN: . History of pancreatitis in the past thought to be secondary to either biliary stricture, microlithiasis or alcohol. She has no signs or symptoms of chronic pancreatitis so I do not suspect it was from alcohol (2) Pancreatitis: PLAN: Keeping pancreatitis with inflammatory versus infectious phlegmon in the left upper quadrant likely secondary to dislodged stent or guidewire from recent ERCP. She is on antibiotic therapy and her white blood cell count is improving. I will add albumin recommend continue IV antibiotics. I will also add metoclopramide therapy due to her history of uncontrolled diabetes mellitus and GI dysmotility in particular gastroparesis. Pancreatitis can cause worsening of gastroparesis and a paralytic ileus. Hopefully with administration of Reglan scheduled therapy and azithromycin she will able to progress to getting better without the use of drainage via IR. Charges/Coding Visit Charges Inpatient E&M: 35575 Subs Hosp L2
[2022-03-13 23:31] LABS: Bedside Glucose 270 mg/dL (74-106)
[2022-03-14] VITALS (13 sets, daily range): BP systolic 127–155; BP diastolic 70–85; PULSE 84–113; RESP 12–20; TEMP 36.5–37.5; O2SAT 90–96
[2022-03-14] MEDS: 0.9% Normal Saline 1,000 ML 250 ML IV ×2 (00:39→04:54)
[2022-03-14] MEDS: HYDROmorphone 1 MG/ML Syringe IV ×7 (00:39→23:20)
[2022-03-14] MEDS: Ondansetron 4 MG/2 ML Vial IV ×2 (04:39→20:13)
[2022-03-14] MEDS: 0.9% Saline Lock 10 ML Syringe IV ×5 (04:40→23:20)
[2022-03-14] MEDS: Metoprolol Tartrate 5 MG/5 ML Vial IV ×3 (05:38→22:18)
[2022-03-14] MEDS: Insulin Lispro 100 UNIT/ML INSULN.PEN SC ×4 (05:38→23:13)
[2022-03-14] MEDS: Albumin Human 25% (50 mL) 12.5 GM/50 ML IV.SOLN IV ×3 (05:40→21:39)
[2022-03-14 05:56] LABS: Bedside Glucose 320 mg/dL (74-106)
[2022-03-14 07:25] LABS: Absolute Lymphocyte Count 1.28 X10^3/uL (0.83-4.51); Absolute Neutrophil Count 8.6 X10^3/uL (2.0-7.7); Basophil# 0.03 X10^3/uL; Basophil% 0.3 % (0-1); Eosinophils% 0.9 % (0-5); Hemoglobin 7.8 g/dL (12.0-15.0); Lymphocyte # 1.28 X10^3/ul (0.83-4.51); Lymphocyte % 12.1 % (19-41); Mean Corp Hgb Conc 31.2 g/dL (32-36); Mean Corpuscular Hgb 29.1 pg (27.0-32.0); Mean Corpuscular Volume 93.3 fL (81-99); Mean Platelet Vol. 10.8 fl (6.2-12.0); Monocyte# 0.57 X10^3/uL; Monocyte% 5.4 % (0-10); NRBC Flagged by Analyzer 0 % (0-5); Neutrophil # 8.55 X10^3/uL (2.7-7.7); Neutrophil % 80.7 % (47-70); Platelet Count 295 K/mm3 (150-450); RBC Distribution Width CV 13.5 % (11.6-14.6); RBC Distribution Width SD 46.3 fl (35.1-43.9); Red Blood Count 2.68 M/mm3 (4.2-5.4); White Blood Count 10.6 K/mm3 (4.4-11.0)
[2022-03-14 07:47] LABS: Anion Gap 12 (5-15); BUN 8 mg/dL (7-18); BUN/Creat Ratio 10.8 RATIO (10-20); Calcium,Total 8.1 mg/dL (8.5-10.1); Chloride 103 mmol/L (98-107); Creatinine, Serum 0.74 mg/dL (0.55-1.02); EST Glomerular Filtration Rate 88 mL/min (>60); Est Glom Filt Rate - Afr Amer 106 mL/min (>60); Estimated Creatinine Clearance 98.35 ml/min; Glucose 324 mg/dL (74-106); Potassium 3.6 mmol/L (3.5-5.1); Sodium Level 133 mmol/L (136-145)
[2022-03-14 08:59] LABS: Erythrocyte Sedimentation Rate 91 mm/hr (0-30)
[2022-03-14 09:07] LABS: Lactic Acid 0.6 mmol/L (0.4-1.9)
[2022-03-14] MEDS: 0.9% Normal Saline 1,000 ML 175 ML IV ×3 (09:12→20:11)
--- NOTE | 2022-03-14 11:27 | PN.HOSP_ITS ---
Documented by User: Anthony MANCILLA 03/14/22 11:35 Subjective Subjective Patient is a 51-year-old female comfortably resting in bed, alert and orient x3. Patient reports that abdominal pain is stable, although patient has not attempted to eat her clear liquid diet. Reports that her stomach still feels not up to it. Objective Data Objective Data Vital Signs: Vital Signs Temp Pulse Resp BP Pulse Ox 98.5 F 94 16 155/85 H 95 03/14/22 08:58 03/14/22 08:58 03/14/22 08:58 03/14/22 08:58 03/14/22 08:58 Oxygen Delivery Method Room Air Weight: 241 lb 6.499 oz Body Mass Index (BMI) 34.6 Intake & Output: Intake and Output for Last 24 Hours 03/12/22 03/13/22 03/14/22 23:59 23:59 23:59 Intake Total 2405 / 2405 4485.00 / 4485.00 3150.00 / 3150.00 Balance 2405 / 2405 4485.00 / 4485.00 3150.00 / 3150.00 Medical Nutrition Assessment Dietitian: Malnutrition Criteria Met Start: 03/13/22 15:29 Freq: Status: Active Protocol: Document 03/13/22 14:54 AG (Rec: 03/13/22 15:29 [id number]) Nutrition Malnutrition Evidence of Malnutrition Exists Yes Malnutrition (severe): Chronic Evidenced By Suboptimal Energy Intake ( Severe),Weight Loss (Severe) Clinical Problem Chronic Disease or Condition Related Malnutrition Etiology severe, chronic malnutrition r /t GI dysfunction Signs/Symptoms as evidenced by estimated PO intake meeting <75% of estimated energy needs >3 months; unintentional wt loss of 38.6#/14% x 5 months Status Active Problem Recommendation Dietitian Recommendations/Changes recommend advance diet as tolerated to CHO controlled, fat restricted, may benefit from ensure clear w/ medpass once diet advanced given malnutrition; consider nutrition support if unable to advance diet- consult RDN for further recommendations as indicated. Lab / Micro Data Result Diagrams: 03/14/22 07:00 03/14/22 07:00 Labs: Laboratory Results - last 24 hr 03/13/22 11:30: POC Glucose 219 H 03/13/22 17:03: POC Glucose 202 H 03/13/22 23:19: POC Glucose 270 H 03/14/22 05:33: POC Glucose 320 H 03/14/22 07:00: WBC 10.6, RBC 2.68 L, Hgb 7.8 L, Hct 25.0 L, MCV 93.3, MCH 29.1, MCHC 31.2 L, RDW Std Deviation 46.3 H, RDW Coeff of Ilene 13.5, Plt Count 295, MPV 10.8, Immature Gran % (Auto) 0.600, Neut % (Auto) 80.7 H, Lymph % (Auto) 12.1 L, [place] % (Auto) 5.4, Eos % (Auto) 0.9, Baso % (Auto) 0.3, Absolute Neuts (auto) 8.6 H, Absolute Lymphs (auto) 1.28, Nucleated RBC % 0 03/14/22 07:00: Sodium 133 L, Potassium 3.6, Chloride 103, Carbon Dioxide 18.0 L , Anion Gap 12, BUN 8, Creatinine 0.74, Estim Creat Clear Calc 98.35, Est GFR (MDRD) Af Amer 106, Est GFR (MDRD) Non-Af 88, BUN/Creatinine Ratio 10.8, Glucose 324 H, Calcium 8.1 L 03/14/22 07:00: ESR 91 H 03/14/22 07:00: C-React Prot Ext Range 261.00 H 03/14/22 08:30: Lactic Acid 0.6 Micro: Microbiology 03/12/22 14:30 Blood Culture (Wb) - Right Forearm Blood Culture - Preliminary No growth in 48 hours. 03/12/22 14:25 Blood Culture (Wb) - Anticubital Right Blood Culture - Preliminary No growth in 48 hours. 03/12/22 14:30 Nasal Secretion SARS-CoV-2 & FLU Antigen (Rapid) - Final Physical Exam Const alert, oriented x3 and no apparent distress HEENT head/scalp atraumatic and moist oral mucous membranes Head and Scalp: normocephalic Eyes PERRL, EOMs intact bilaterally and conjunctivae normal Neck no lymphadenopathy, supple and no JVD Resp normal respiratory effort, no retractions and no use of accessory muscles Cardio regular rate, regular rhythm and no JVD GI normal to inspection, nondistended, normoactive bowel sounds and soft to palpation Extremity normal to inspection, full ROM and no clubbing, cyanosis or edema Skin no rashes or lesions noted, no wounds and skin turgor normal Neuro CN's II-XII intact bilaterally Psych affect normal Assessment & Plan Assessment/Plan (1) Acute necrosis of pancreas: (2) Pancreatitis: PLAN: Day 2 Discharge planning: Patient to discharge home when medically ready. 1) acute pancreatitis with possible necrosis Patient still with diffuse abdominal pain to palpation throughout the abdomen. Patient recently had biliary stent placed by Dr. Curtis on March 01. Patient denies history of pancreatitis, denies any history of gallstones, does report to drinking about [address] of the abdomen/pelvis demonstrates focal pancreatitis at the tail of the pancreas with 9 cm acute peripancreatic fluid collection with possible acute necrotic collection. GI on consult, will proceed with medical management at this time. Continue Reglan, azithromycin, Zosyn, IV fluids. If no improvement, will consider drainage via IR pending GI recommendations. Continue clear liquid diet, advance as tolerated. 2) hypokalemia Resolved, potassium currently 3.6, will continue to monitor. 3) atrial fibrillation Patient on metoprolol for rate control. Does not appear to be on any anticoagulation. [id number] score is 3. initiate IV metoprolol. Should be considered for anticoagulation prior to discharge, will continue Lovenox for now. 4) DM2 Initiate Accu-Cheks assigned scale insulin. 5) hyperlipidemia On appropriate statin regimen, will hold due to current n.p.o. status. DVT prophylaxis - Lovenox Patient seen by Anthony Byrne PA-C, under the supervision of Dr. Alvarez. Documented by User: Dr. Antonio Alvarez MD 03/14/22 12:07 Objective Data Lab / Micro Data Result Diagrams: 03/14/22 07:00 03/14/22 07:00 Assessment & Plan Addt'l Comments This patient was seen in conjunction with Anthony Byrne PA-C. I have independently interviewed and examined the patient and reviewed pertinent historical, laboratory, and other data. Please refer to Anthony Byrne PA-C's note for details of this patient's presentation, findings, and recommendations. I have reviewed Anthony Byrne PA-C's note and concur with documented findings. In brief, patient is a 51-year-old lady who presented with fever and abdominal pain imaging studies obtained on admission came back consistent with necrotizing pancreatitis admitted to monitored bed with consultation placed to GI Dr. Curtis 03/14/2022; patient seen still complains of abdominal pain remains on broad- spectrum antibiotic therapy. Patient was started on clear liquids Physical Examination: GENERAL: cooperative HEENT: Atraumatic; EYES; Anicteric, Normal Conjunctiva NECK; supple, normal thyroid, RESPIRATORY: Diminished to auscultation CARDIOVASCULAR: Regular S1 S2, GI: soft, normoactive bowel sounds, : No Renal angle tenderness; EXTREMITIES: No edema, no clubbing, MUSCULOSKELETAL: no muscle wasting NEURO: Awake; no lateralizing signs. SKIN: No Rash PSYCH; Flat affect Assessment: 1. Necrotizing pancreatitis 2. Recent ERCP on 03/01/2022 3. Diabetes mellitus type 2 4. Chronic kidney disease stage III 5. Gastroparesis 6. Essential hypertension 7. Dyslipidemia 8. Class I obesity with BMI of 34.6 9. Hypokalemia 10. DVT prophylaxis Recommendations: 1. I have discussed the results of my overview and impressions with the patient 2. Options for management were reviewed Total time spent by myself and the advanced practice practitioner evaluating patient, reviewing labs, subsequent management decisions, discussion with patient as well as other providers 40 minutes ( 25 of which was spent by myself) Charges/Coding Visit Charges Inpatient E&M: 54919 Subs Hosp L2
[2022-03-14 11:56] LABS: Bedside Glucose 297 mg/dL (74-106)
[2022-03-14] MEDS: Metoclopramide 10 MG/2 ML Vial 5 MG IV ×3 (12:38→22:18)
[2022-03-14 17:16] LABS: Bedside Glucose 280 mg/dL (74-106)
[2022-03-14] MEDS: traZODone 100 MG Tablet 200 MG PO (23:12)
[2022-03-14 23:21] LABS: Bedside Glucose 305 mg/dL (74-106)
[2022-03-15] VITALS (14 sets, daily range): BP systolic 128–158; BP diastolic 71–84; PULSE 71–103; RESP 16–20; TEMP 36.4–36.9; O2SAT 91–98
[2022-03-15] MEDS: 0.9% Normal Saline 1,000 ML 175 ML IV ×3 (02:24→14:30)
[2022-03-15] MEDS: 0.9% Saline Lock 10 ML Syringe IV ×2 (03:40→05:49)
[2022-03-15] MEDS: HYDROmorphone 1 MG/ML Syringe IV ×2 (03:40→09:40)
[2022-03-15 05:29] LABS: Absolute Lymphocyte Count 1.14 X10^3/uL (0.83-4.51); Absolute Neutrophil Count 9.9 X10^3/uL (2.0-7.7); Basophil# 0.03 X10^3/uL; Basophil% 0.3 % (0-1); Eosinophil# 0.07 X10^3/uL; Eosinophils% 0.6 % (0-5); Hematocrit 25.4 % (37-47); Lymphocyte # 1.14 X10^3/ul (0.83-4.51); Lymphocyte % 9.6 % (19-41); Mean Corp Hgb Conc 31.5 g/dL (32-36); Mean Platelet Vol. 11.3 fl (6.2-12.0); Monocyte# 0.69 X10^3/uL; Monocyte% 5.8 % (0-10); NRBC Flagged by Analyzer 0 % (0-5); Neutrophil # 9.85 X10^3/uL (2.7-7.7); Neutrophil % 82.9 % (47-70); Platelet Count 297 K/mm3 (150-450); RBC Distribution Width CV 13.6 % (11.6-14.6); RBC Distribution Width SD 46.2 fl (35.1-43.9); Red Blood Count 2.76 M/mm3 (4.2-5.4); White Blood Count 11.9 K/mm3 (4.4-11.0)
[2022-03-15] MEDS: Insulin Lispro 100 UNIT/ML INSULN.PEN SC ×4 (05:45→22:51)
[2022-03-15] MEDS: Metoprolol Tartrate 5 MG/5 ML Vial IV ×3 (05:47→22:36)
[2022-03-15] MEDS: Metoclopramide 10 MG/2 ML Vial 5 MG IV ×4 (05:48→22:53)
[2022-03-15] MEDS: Albumin Human 25% (50 mL) 12.5 GM/50 ML IV.SOLN IV ×3 (05:53→21:27)
[2022-03-15 06:13] LABS: Anion Gap 14 (5-15); BUN 5 mg/dL (7-18); BUN/Creat Ratio 7.1 RATIO (10-20); Calcium,Total 8.7 mg/dL (8.5-10.1); Chloride 103 mmol/L (98-107); Creatinine, Serum 0.71 mg/dL (0.55-1.02); EST Glomerular Filtration Rate 93 mL/min (>60); Est Glom Filt Rate - Afr Amer 112 mL/min (>60); Estimated Creatinine Clearance 102.51 ml/min; Glucose 339 mg/dL (74-106); Potassium 3.6 mmol/L (3.5-5.1); Sodium Level 135 mmol/L (136-145)
[2022-03-15 07:09] LABS: Erythrocyte Sedimentation Rate 101 mm/hr (0-30)
[2022-03-15 07:11] LABS: Bedside Glucose 323 mg/dL (74-106)
[2022-03-15 07:11] LABS: CPK Total, Creatine Kinase 44 U/L (26-192); LDH 199 U/L (84-246)
[2022-03-15 07:59] LABS: Lactic Acid 1.1 mmol/L (0.4-1.9)
--- NOTE | 2022-03-15 10:24 | PN.HOSP_ITS ---
Documented by User: Gertrude Joyner NP-C 03/15/22 10:35 Subjective Subjective Patient seen and examined. Patient states that she has a headache but her abdominal pain has improved slightly. Patient states that she does have abdominal pain and nausea if she gets up and moves around a lot. Patient reports that she has started drinking some clear fluids but mostly water. Objective Data Objective Data Vital Signs: Vital Signs Temp Pulse Resp BP Pulse Ox 98.1 F 83 16 135/71 H 95 03/15/22 05:41 03/15/22 08:30 03/15/22 08:30 03/15/22 08:30 03/15/22 08:30 Oxygen Delivery Method Room Air Weight: 241 lb 6.499 oz Body Mass Index (BMI) 34.6 Intake & Output: Intake and Output for Last 24 Hours 03/13/22 03/14/22 03/15/22 23:59 23:59 23:59 Intake Total 4485.00 / 4485.00 6646.25 / 6766.25 2320 / 2320 Output Total 900 / 900 Balance 4485.00 / 4485.00 6646.25 / 5866.25 1420 / 1420 Medical Nutrition Assessment Dietitian: Malnutrition Criteria Met Start: 03/13/22 15:29 Freq: Status: Active Protocol: Document 03/13/22 14:54 AG (Rec: 03/13/22 15:29 [id number]) Nutrition Malnutrition Evidence of Malnutrition Exists Yes Malnutrition (severe): Chronic Evidenced By Suboptimal Energy Intake ( Severe),Weight Loss (Severe) Clinical Problem Chronic Disease or Condition Related Malnutrition Etiology severe, chronic malnutrition r /t GI dysfunction Signs/Symptoms as evidenced by estimated PO intake meeting <75% of estimated energy needs >3 months; unintentional wt loss of 38.6#/14% x 5 months Status Active Problem Recommendation Dietitian Recommendations/Changes recommend advance diet as tolerated to CHO controlled, fat restricted, may benefit from ensure clear w/ medpass once diet advanced given malnutrition; consider nutrition support if unable to advance diet- consult RDN for further recommendations as indicated. Lab / Micro Data Result Diagrams: 03/15/22 04:27 03/15/22 04:27 Labs: Laboratory Results - last 24 hr 03/14/22 11:31: POC Glucose 297 H 03/14/22 16:53: POC Glucose 280 H 03/14/22 23:12: POC Glucose 305 H 03/15/22 04:27: WBC 11.9 H, RBC 2.76 L, Hgb 8.0 L, Hct 25.4 L, MCV 92.0, MCH 29.0, MCHC 31.5 L, RDW Std Deviation 46.2 H, RDW Coeff of Ilene 13.6, Plt Count 297, MPV 11.3, Immature Gran % (Auto) 0.800, Neut % (Auto) 82.9 H, Lymph % (Auto) 9.6 L, [place] % (Auto) 5.8, Eos % (Auto) 0.6, Baso % (Auto) 0.3, Absolute Neuts (auto) 9.9 H, Absolute Lymphs (auto) 1.14, Nucleated RBC % 0 03/15/22 04:27: Sodium 135 L, Potassium 3.6, Chloride 103, Carbon Dioxide 18.0 L , Anion Gap 14, BUN 5 L, Creatinine 0.71, Estim Creat Clear Calc 102.51, Est GFR (MDRD) Af Amer 112, Est GFR (MDRD) Non-Af 93, BUN/Creatinine Ratio 7.1 L, Glucose 339 H, Calcium 8.7 03/15/22 04:27: ESR 101 H 03/15/22 04:27: Lactate Dehydrogenase 199, Total Creatine Kinase 44, C-React Prot Ext Range 237.00 H 03/15/22 05:45: POC Glucose 323 H 03/15/22 07:25: Lactic Acid 1.1 Micro: Microbiology 03/12/22 14:30 Blood Culture (Wb) - Right Forearm Blood Culture - Preliminary No growth in 48 hours. 03/12/22 14:25 Blood Culture (Wb) - Anticubital Right Blood Culture - Preliminary No growth in 48 hours. 03/12/22 14:30 Nasal Secretion SARS-CoV-2 & FLU Antigen (Rapid) - Final Physical Exam Const alert, oriented x3 and no apparent distress HEENT head/scalp atraumatic Head and Scalp: normocephalic Eyes conjunctivae normal and no scleral icterus Neck supple General: trachea midline Resp normal respiratory effort and clear to auscultation bilaterally Effort and Inspection: able to speak in complete sentences and symmetric chest movement Cardio regular rate, regular rhythm, S1 normal heart sound and S2 normal heart sound GI Auscultation: hypoactive bowel sounds Palpation: tender epigastric, LUQ and RUQ Extremity normal to inspection, full ROM and no clubbing, cyanosis or edema Peripheral Pulses: Yes pulses 2+ throughout Skin no rashes or lesions noted Neuro oriented x3, no focal motor deficits and no sensory deficits noted Sensorium / Orientation: awake and alert Speech: speech normal Psych affect normal Assessment & Plan Assessment/Plan (1) Pancreatitis: QUALIFIERS: Chronicity: acute (2) Diabetes: QUALIFIERS: Diabetes mellitus complication status: with hyperglycemia 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 Acute pancreatitis -Patient continues to have abdominal pain, states that pain medication is effective at controlling some of the pain. -Patient reports she drinks approximately 6 beers per week -CT demonstrates focal pancreatitis at the tail the pancreas and 9 cm acute peripancreatic fluid collection with possible acute necrotic collection -GI following -Continue Reglan, azithromycin, Zosyn, IV fluids, clear liquid diet -Patient may need drainage via IR if no improvement 2. Atrial fibrillation -Continue scheduled IV metoprolol -Patient was not previously on anticoagulation 3. Diabetes mellitus type 2 -Continue every 6 blood sugar checks with sliding scale insulin coverage 4. Hyperlipidemia -Statin therapy on hold DVT prophylaxis-Lovenox This patient was seen by JUAN Alcantara under the supervision of Dr. Alvarez. 10 minutes spent in clinical coordination of patient's plan of care. Documented by User: Dr. Antonio Alvarez MD 03/15/22 11:23 Objective Data Lab / Micro Data Result Diagrams: 03/15/22 04:27 03/15/22 04:27 Assessment & Plan Addt'l Comments This patient was seen in conjunction with JUAN Alcantara . I have independently interviewed and examined the patient and reviewed pertinent historical, laboratory, and other data. Please refer to JUAN Alcantara note for details of this patient's presentation, findings, and recommendations. I have reviewed JUAN Alcantara note and concur with documented findings. In brief, patient is a 51-year-old lady who presented with fever and abdominal pain imaging studies obtained on admission came back consistent with necrotizing pancreatitis admitted to monitored bed with consultation placed to GI Dr. Curtis 03/14/2022; patient seen still complains of abdominal pain remains on broad- spectrum antibiotic therapy. Patient was started on clear liquids 03/15/2022; patient has tolerated clear liquids well so far. Plan is to advance diet as tolerated. Patient is anemic with hemoglobin of 8.0 we will continue with monitoring of H&H Physical Examination: GENERAL: cooperative HEENT: Atraumatic; EYES; Anicteric, Normal Conjunctiva NECK; supple, normal thyroid, RESPIRATORY: Diminished to auscultation CARDIOVASCULAR: Regular S1 S2, GI: soft, normoactive bowel sounds, : No Renal angle tenderness; EXTREMITIES: No edema, no clubbing, MUSCULOSKELETAL: no muscle wasting NEURO: Awake; no lateralizing signs. SKIN: No Rash PSYCH; Flat affect Assessment: 1. Necrotizing pancreatitis 2. Recent ERCP on 03/01/2022 3. Diabetes mellitus type 2 4. Chronic kidney disease stage III 5. Gastroparesis 6. Essential hypertension 7. Dyslipidemia 8. Class I obesity with BMI of 34.6 9. Hypokalemia 10. DVT prophylaxis 11. Anemia of chronic disorder Recommendations: 1. I have discussed the results of my overview and impressions with the patient 2. Options for management were reviewed Total time spent by myself and the advanced practice practitioner evaluating patient, reviewing labs, subsequent management decisions, discussion with patient as well as other providers 40 minutes ( 25 of which was spent by myself) Charges/Coding Visit Charges Inpatient E&M: 76219 Subs Hosp L2
[2022-03-15 11:35] LABS: Bedside Glucose 339 mg/dL (74-106)
[2022-03-15] MEDS: HYDROmorphone 1 MG/ML Syringe 0.5 MG IV ×3 (13:12→22:31)
[2022-03-15 17:51] LABS: Bedside Glucose 310 mg/dL (74-106)
--- NOTE | 2022-03-15 18:20 | CT_ITS ---
STUDY: CT Abdomen And Pelvis W/ Contrast Injection 03/15/2022 7:24 PM REASON FOR EXAM: Female, 51 years old. ABDOMINAL PAIN pancreatitis TECHNIQUE: Transaxial images were obtained without oral contrast, and with IV 100mL [id number]-370 intravenous contrast. Individualized dose optimization techniques were used for this CT. COMPARISON: 03/12/2022. FINDINGS: There is a small volume bilateral pleural effusion. There is bilateral pneumonia. Unremarkable liver. The gallbladder is contracted. Biliary stent in place. Unremarkable spleen. There is diffuse enlargement of the pancreas with juliette-pancreatic edema suggesting acute pancreatitis. Along the pancreatic tail is a fluid collection containing air measuring 10.2 x 5.2 x 8.3cm. Unremarkable bilateral adrenal glands. No acute findings of the right kidney. No acute findings of the left kidney. Unremarkable visualized stomach. Unremarkable small intestine. Unremarkable colon. There is non-visualization of the appendix. There is moderate diffuse narrowing. Unremarkable inferior vena cava. Subcentimeter mesenteric lymph nodes. The urinary bladder is distended. This can suggest urinary retention. Unremarkable abdominal wall. Unremarkable osseous structures. CT/Abdomen/Pelvis W IV Cont ONLY IMPRESSION: (NOT LISTED IN ORDER OF SIGNIFICANCE) Stable pancreatic fluid collection around the tail of the pancreas. Findings can suggest necrotizing pancreatitis. There are bilateral pleural effusions. There is bilateral pneumonia. Other findings as above. Electronically Signed: Anupam Valerio MD at 19:29 EDT ,
--- NOTE | 2022-03-15 18:23 | PN_ITS ---
Subjective Subjective Patient continues to still be in a lot of pain. Patient pain radiates from 4 out of 10-10 out of 10. She still has some nausea and has been on liquid diet. Objective Data Objective Data Vital Signs: Vital Signs Temp Pulse Resp BP Pulse Ox 98.4 F 99 18 158/81 H 98 03/15/22 17:30 03/15/22 17:30 03/15/22 17:30 03/15/22 17:30 03/15/22 17:30 Oxygen Delivery Method Room Air Weight: 241 lb 6.499 oz Body Mass Index (BMI) 34.6 Intake & Output: Intake and Output for Last 24 Hours 03/13/22 03/14/22 03/15/22 23:59 23:59 23:59 Intake Total 4485.00 / 4485.00 6646.25 / 6766.25 5050 / 5050 Output Total 1400 / 1400 Balance 4485.00 / 4485.00 6646.25 / 5866.25 3650 / 3650 Medical Nutrition Assessment Dietitian: Malnutrition Criteria Met Start: 03/13/22 15:29 Freq: Status: Active Protocol: Document 03/13/22 14:54 AG (Rec: 03/13/22 15:29 [id number]) Nutrition Malnutrition Evidence of Malnutrition Exists Yes Malnutrition (severe): Chronic Evidenced By Suboptimal Energy Intake ( Severe),Weight Loss (Severe) Clinical Problem Chronic Disease or Condition Related Malnutrition Etiology severe, chronic malnutrition r /t GI dysfunction Signs/Symptoms as evidenced by estimated PO intake meeting <75% of estimated energy needs >3 months; unintentional wt loss of 38.6#/14% x 5 months Status Active Problem Recommendation Dietitian Recommendations/Changes recommend advance diet as tolerated to CHO controlled, fat restricted, may benefit from ensure clear w/ medpass once diet advanced given malnutrition; consider nutrition support if unable to advance diet- consult RDN for further recommendations as indicated. Lab / Micro Data Result Diagrams: 03/15/22 04:27 03/15/22 04:27 Labs: Laboratory Results - last 24 hr 03/14/22 23:12: POC Glucose 305 H 03/15/22 04:27: WBC 11.9 H, RBC 2.76 L, Hgb 8.0 L, Hct 25.4 L, MCV 92.0, MCH 29.0, MCHC 31.5 L, RDW Std Deviation 46.2 H, RDW Coeff of Ilene 13.6, Plt Count 297, MPV 11.3, Immature Gran % (Auto) 0.800, Neut % (Auto) 82.9 H, Lymph % (Auto) 9.6 L, [place] % (Auto) 5.8, Eos % (Auto) 0.6, Baso % (Auto) 0.3, Absolute Neuts (auto) 9.9 H, Absolute Lymphs (auto) 1.14, Nucleated RBC % 0 03/15/22 04:27: Sodium 135 L, Potassium 3.6, Chloride 103, Carbon Dioxide 18.0 L , Anion Gap 14, BUN 5 L, Creatinine 0.71, Estim Creat Clear Calc 102.51, Est GFR (MDRD) Af Amer 112, Est GFR (MDRD) Non-Af 93, BUN/Creatinine Ratio 7.1 L, Glucose 339 H, Calcium 8.7 03/15/22 04:27: ESR 101 H 03/15/22 04:27: Lactate Dehydrogenase 199, Total Creatine Kinase 44, C-React Prot Ext Range 237.00 H 03/15/22 05:45: POC Glucose 323 H 03/15/22 07:25: Lactic Acid 1.1 03/15/22 11:27: POC Glucose 339 H 03/15/22 17:42: POC Glucose 310 H Micro: Microbiology 03/12/22 14:30 Blood Culture (Wb) - Right Forearm Blood Culture - Preliminary No growth in 48 hours. 03/12/22 14:25 Blood Culture (Wb) - Anticubital Right Blood Culture - Preliminary No growth in 48 hours. 03/12/22 14:30 Nasal Secretion SARS-CoV-2 & FLU Antigen (Rapid) - Final Physical Exam Const alert General Appearance: cooperative Orientation / Consciousness: oriented to person HEENT hearing grossly normal bilaterally Head and Scalp: normal to inspection Face and Sinus: face symmetric Nose: external nose normal Mouth: oral and palatal mucosa normal Eyes conjunctivae normal General Eye: normal appearance of both eyes Neck full ROM General: normal visual inspection Lymph Lymphatic: no lymphadenopathy noted Chest inspection of chest normal and palpation of chest normal Chest: symmetrical chest wall rise Resp normal respiratory effort Effort and Inspection: able to speak in complete sentences Cardio regular rate GI non-distended Percussion: normal to percussion Rectal Exam: deferred Neuro Speech: speech normal Gait (Neuro): normal gait Assessment & Plan Assessment/Plan (1) Pancreatitis: QUALIFIERS: Chronicity: acute PLAN: Can you IV fluids, albumin, antibiotics, pain medicine. Also continue prokinetic agents with azithromycin and Reglan. I will repeat her CT scan abdomen pelvis today. At this time I do not think she needs percutaneous drainage. However if her CT scan is getting worse she may require percutaneous drainage and/or surgical evaluation. (2) Gastroparesis: PLAN: Continue Reglan therapy. Recommend to start PPI therapy 40 mg twice daily and stool softeners for chronic idiopathic constipation. Charges/Coding Visit Charges Inpatient E&M: 52612 Subs Hosp L2
--- NOTE | 2022-03-15 18:40 | RAD_ITS ---
STUDY: X-RAY CHEST REASON FOR EXAM: Female, 51 years old. shortness of breath TECHNIQUE: XR Chest 1 View COMPARISON: 3 days ago. FINDINGS: There is a left pleural effusion. There is no pneumothorax. There is a right PICC line. Normal size heart. Normal mediastinum and margarito. Normal visualized pulmonary arteries. There is atherosclerotic calcification of the aortic arch with tortuosity. There are diffuse degenerative changes of the visualized thoracic spine. There is degenerative osteoarthritis of the bilateral shoulders. There is no demonstrated abnormality of the visualized soft tissue structures of the upper abdomen. RAD/Chest 1 View (Portable) IMPRESSION: There is a left pleural effusion. Electronically Signed: Anupam Valerio MD at 20:18 EDT ,
[2022-03-15] MEDS: traZODone 100 MG Tablet 200 MG PO (22:36)
[2022-03-15] MEDS: Docusate Sodium 100 MG Capsule 200 MG PO (22:49)
[2022-03-15 23:11] LABS: Bedside Glucose 319 mg/dL (74-106)
[2022-03-16] VITALS (12 sets, daily range): BP systolic 118–153; BP diastolic 66–80; PULSE 78–112; RESP 16–20; TEMP 36.4–36.9; O2SAT 93–96
[2022-03-16] MEDS: 0.9% Normal Saline 1,000 ML 150 ML IV ×2 (00:05→06:14)
[2022-03-16] MEDS: 0.9% Saline Lock 10 ML Syringe IV ×3 (03:58→23:05)
[2022-03-16] MEDS: Ondansetron 4 MG/2 ML Vial IV (03:58)
[2022-03-16] MEDS: Metoclopramide 10 MG/2 ML Vial 5 MG IV ×4 (05:31→22:56)
[2022-03-16] MEDS: Albumin Human 25% (50 mL) 12.5 GM/50 ML IV.SOLN IV ×3 (05:32→22:51)
[2022-03-16] MEDS: Insulin Lispro 100 UNIT/ML INSULN.PEN SC ×2 (05:45→11:41)
[2022-03-16] MEDS: Metoprolol Tartrate 5 MG/5 ML Vial IV ×2 (05:49→14:51)
[2022-03-16] MEDS: proCHLORPERazine 10 MG/2 ML Vial 5 MG IV (06:14)
[2022-03-16 06:21] LABS: Absolute Lymphocyte Count 0.92 X10^3/uL (0.83-4.51); Absolute Neutrophil Count 10.5 X10^3/uL (2.0-7.7); Basophil# 0.03 X10^3/uL; Basophil% 0.2 % (0-1); Eosinophil# 0.04 X10^3/uL; Eosinophils% 0.3 % (0-5); Hematocrit 27.6 % (37-47); Hemoglobin 8.6 g/dL (12.0-15.0); Lymphocyte # 0.92 X10^3/ul (0.83-4.51); Lymphocyte % 7.6 % (19-41); Mean Corp Hgb Conc 31.2 g/dL (32-36); Mean Corpuscular Hgb 28.5 pg (27.0-32.0); Mean Corpuscular Volume 91.4 fL (81-99); Mean Platelet Vol. 10.8 fl (6.2-12.0); Monocyte# 0.51 X10^3/uL; Monocyte% 4.2 % (0-10); NRBC Flagged by Analyzer 0 % (0-5); Neutrophil # 10.53 X10^3/uL (2.7-7.7); Neutrophil % 86.9 % (47-70); Platelet Count 348 K/mm3 (150-450); RBC Distribution Width CV 13.6 % (11.6-14.6); Red Blood Count 3.02 M/mm3 (4.2-5.4); White Blood Count 12.1 K/mm3 (4.4-11.0)
[2022-03-16 06:46] LABS: Bedside Glucose 313 mg/dL (74-106)
[2022-03-16 07:10] LABS: Anion Gap 17 (5-15); BUN 9 mg/dL (7-18); BUN/Creat Ratio 12.2 RATIO (10-20); Calcium,Total 8.9 mg/dL (8.5-10.1); Chloride 102 mmol/L (98-107); Creatinine, Serum 0.74 mg/dL (0.55-1.02); EST Glomerular Filtration Rate 88 mL/min (>60); Est Glom Filt Rate - Afr Amer 107 mL/min (>60); Estimated Creatinine Clearance 98.35 ml/min; Glucose 367 mg/dL (74-106); Potassium 3.6 mmol/L (3.5-5.1); Sodium Level 133 mmol/L (136-145)
--- NOTE | 2022-03-16 07:20 | RAD_ITS ---
INDICATION: pleural effusion EXAMINATION/TECHNIQUE: X-RAY - XR Chest 2 Views COMPARISON: 03/15/2022 FINDINGS: LINES/DEVICES: Right PICC in similar position. LUNGS: Small to moderate left pleural effusion, similar compared to the prior. MEDIASTINUM AND CARDIOVASCULAR STRUCTURES: Cardiac silhouette not enlarged. Central airways and mediastinal contour are unremarkable. BONES AND SOFT TISSUES: Unremarkable. RAD/Chest Insp/Exp 2 View IMPRESSION: Small to moderate left pleural effusion, similar compared to the prior. Electronically Signed: Chandrakant Tenorio MD at 7:40 EDT ,
[2022-03-16 08:25] LABS: Erythrocyte Sedimentation Rate 68 mm/hr (0-30)
--- NOTE | 2022-03-16 08:25 | EX.PCM.CONCC ---
Assessment & Plan Assessment/Plan (1) Pleural effusion: PLAN: RECOMMENDATIONS: 1. Continue medical management of pancreatitis including fluids and antimicrobials. 2. No indication for thoracentesis at this time. 3. Thoracentesis would be considered if the patient develops respiratory compromise, such as hypoxemia. 4. Please call if the patient's clinical status changes and we will reevaluate the need for thoracentesis at that time. IMPRESSIONS: 1. Pleural effusion The patient appears to have a small left-sided pleural effusion, initially noted on CT abdomen/pelvis on March 15. Follow-up chest imaging continues to demonstrate a small pleural effusion. The effusion itself is most certainly related to the patient's acute pancreatitis. These effusions tend to be mild to moderate in nature and are typically left-sided and exudative. In the absence of any respiratory compromise such as hypoxemia, I do not see an indication to proceed with thoracentesis. The effusion itself will typically resolve without intervention as the pancreatitis resolves with medical management. If the effusion enlarges with time and leads to respiratory compromise, thoracentesis can be reconsidered at that time. 2. Acute necrotizing pancreatitis secondary to recent ERCP Continue current medical management with supplemental IV fluid hydration and broad-spectrum antimicrobials. The patient may ultimately require percutaneous drain placement to the pancreatic fluid collection noted on CT imaging. 3. Gastroparesis/diabetes mellitus/GERD/hypertension/obesity Complicates care, management, recovery and prognosis. Continue home medications as indicated. This note was generated with [employer] dictation software. It may contain incorrect words, spelling, and punctuation that were not noted in checking the note before signing. HPI Consult Data Date of Consult: 03/16/22 HPI Narrative Reason for Consultation: Pleural effusion HPI Narrative: The patient is a 51-year-old female, with a history as outlined below, who presented to the emergency department on March 12 with fever, nausea and vomiting. The patient was recently admitted to the hospital on March 01 and underwent an ERCP. She was noted to have a biliary stricture with a dilated pancreatic and common bile duct. A stent was placed in the pancreatic duct along with a stent in the common bile duct. On presentation to the emergency department, the patient was noted to have a fever of 102.8 ?F. She was also tachycardic and tachypneic. Nevertheless, she was maintaining appropriate oxygen saturations on room air. Initial laboratory evaluation revealed an elevated white blood cell count to 17,000. Chemistry profile was notable for a creatinine of 1.17. Lactate was normal at 1.3. Alk phos was increased at 137. Lipase was normal. Initial CT abdomen/pelvis revealed fat stranding around the tail the pancreas with a large fluid collection. This was concerning for pancreatitis versus an acute necrotic collection. The patient was treated with supplemental IV fluids and antimicrobials. She was subsequently evaluated by gastroenterology. A follow-up CT abdomen/pelvis was just obtained yesterday. There continues to be evidence of a fluid collection around the pancreatic tail. There is incidental note of a small left-sided pleural effusion. Follow-up chest x-ray obtained earlier today again demonstrated a small left-sided pleural effusion. Nevertheless, the patient continues to maintain appropriate oxygen saturations on room air. The patient denies the presence of shortness of breath. [facility] Medical History Alcohol use Allergies Anemia Anxiety Arthritis Atrial fibrillation Back problem COVID Depression Dietary restriction Excessive bleeding Gastritis GERD (gastroesophageal reflux disease) Heart murmur History of cardiac murmur History of edema History of renal disease HTN (hypertension) Hyperlipidemia Insulin dependent diabetes mellitus Leg cramps Liver disease Migraine Neuropathy Non-smoker Shortness of breath on exertion Sleep apnea Tubular adenoma of colon Vitamin deficiency Wears glasses Wears partial dentures Home Medications aspirin 81 mg tablet,delayed release 81 mg PO DAILY 07/11/20 [History Last Taken 03/12/22] insulin aspart U-100 100 unit/mL (3 mL) subcutaneous pen 9 unit SC TID ml 07/11/20 [History Last Taken 03/12/22] metoprolol tartrate 25 mg tablet 25 mg PO BID 07/11/20 [History Last Taken 03/12/22] multivitamin 1 tab PO DAILY 07/11/20 [History Last Taken 03/12/22] omega-3 fatty acids 1,000 mg capsule 1,000 mg PO DAILY 07/11/20 [History Last Taken 03/12/22] pravastatin 40 mg tablet 40 mg PO DAILY 07/11/20 [History Last Taken 03/11/22] ondansetron 4 mg disintegrating tablet 4 mg PO Q8H PRN #90 tab 12/27/21 [Rx Last Taken 03/12/22] Ajovy Autoinjector 225 mg SUBCUT QMONTH 12/28/21 [History Last Taken 02/28/22] Trulicity 3 mg SUBCUT NOVA 12/28/21 [History Last Taken 03/04/22] metoclopramide HCl 5 mg tablet 5 mg PO QAC #90 tab 01/17/22 [Rx Last Taken 03/12/22] scopolamine base 1 mg over 3 days transdermal patch 1 patch TRANSDERMAL Q72H #10 ea 02/12/22 [Rx Last Taken 03/12/22] Linzess 290 mcg PO DAILY 03/12/22 [History Last Taken 03/12/22] insulin glargine [Lantus Solostar U-100 Insulin] 50 unit SUBCUT QHS 03/12/22 [History Last Taken 03/11/22] alofmo-kadgcapj-runqczk 24,000-76,000-120,000 unit capsule,delayed rel 1 cap PO TID #180 cap 03/12/22 [Rx Last Taken Unknown] methocarbamol 1,500 mg PO TID 03/12/22 [History Last Taken 03/12/22] omeprazole 40 mg PO DAILY 03/12/22 [History Last Taken 03/12/22] tizanidine 4 mg PO Q8H 03/12/22 [History Last Taken 03/12/22] trazodone 200 mg PO QHS 03/12/22 [History Last Taken 03/11/22] Allergy/AdvReac Type Severity Reaction Status Date / Time lactase [From Dairy Aid] Allergy Severe diarrhea Verified 03/12/22 13:58 codeine Allergy Intermediate mental Verified 03/12/22 13:58 status diphenhydramine Allergy Intermediate mental Verified 03/12/22 13:58 [From Benadryl Allergy] status quetiapine [From Seroquel] Allergy Intermediate about Verified 03/12/22 13:58 killed me - went into DKA morphine Allergy NEEDS Verified 03/12/22 13:58 FOLLOW-UP Family History Other Arthritis Cancer Depression Diabetes Kidney disease Surgical History History of esophagogastroduodenoscopy (EGD) History of hysterectomy Hx of colonoscopy Social History Smoking Status: Never smoker alcohol intake: current ROS Constitutional Constitutional: Reports fever(s) Eyes Eyes: Denies blurry vision or change in vision ENT HEENT: Denies dizziness, dysphagia, epistaxis or headache(s) Cardiovascular Cardiovascular: Denies dyspnea Respiratory/Chest Respiratory/Chest: Denies cough, dyspnea or hemoptysis Gastrointestinal Gastrointestinal: Reports nausea and vomiting Genitourinary Genitourinary: Denies difficulty urinating Musculoskeletal Musculoskeletal: Denies arthralgias, back pain or joint pain Integumentary Integumentary: Denies lesions, rash or skin ulcer Neurologic Neurologic: Denies abnormal gait or abnormal speech Psychiatric Psychiatric: Denies anxiety or depression Endocrine Endocrinology: Denies fatigue Hematologic/Lymphatic Hematologic/Lymphatic: Denies easy bleeding or easy bruising Physical Exam Const alert and no apparent distress Constitutional Narrative: is present at the bedside. General Appearance: cooperative Nutritional Appearance: obese HEENT normocephalic and head/scalp atraumatic Eyes PERRL, EOMs intact bilaterally and conjunctivae normal Chest inspection of chest normal Resp normal respiratory effort and no use of accessory muscles Auscultation: Negative for rales, rhonchi or wheezes Cardio regular rate and regular rhythm GI soft to palpation and non-tender Extremity no clubbing, cyanosis or edema Skin no rashes or lesions noted Neuro CN's II-XII intact bilaterally, moves all extremities and no focal motor deficits Psych cooperative and affect normal Medical Records Data Medical Nutrition Assessment Dietitian: Malnutrition Criteria Met Start: 03/13/22 15:29 Freq: Status: Active Protocol: Document 03/13/22 14:54 (Rec: 03/13/22 15:29 [id number]) Nutrition Malnutrition Evidence of Malnutrition Exists Yes Malnutrition (severe): Chronic Evidenced By Suboptimal Energy Intake ( Severe),Weight Loss (Severe) Clinical Problem Chronic Disease or Condition Related Malnutrition Etiology severe, chronic malnutrition r /t GI dysfunction Signs/Symptoms as evidenced by estimated PO intake meeting <75% of estimated energy needs >3 months; unintentional wt loss of 38.6#/14% x 5 months Status Active Problem Recommendation Dietitian Recommendations/Changes recommend advance diet as tolerated to CHO controlled, fat restricted, may benefit from ensure clear w/ medpass once diet advanced given malnutrition; consider nutrition support if unable to advance diet- consult RDN for further recommendations as indicated. Lab / Micro Data Result Diagrams: 03/16/22 06:05 03/16/22 06:05 Labs: Laboratory Results - last 24 hr 03/15/22 11:27: POC Glucose 339 H 03/15/22 17:42: POC Glucose 310 H 03/15/22 22:51: POC Glucose 319 H 03/16/22 05:44: POC Glucose 313 H 03/16/22 06:05: WBC 12.1 H, RBC 3.02 L, Hgb 8.6 L, Hct 27.6 L, MCV 91.4, MCH 28.5, MCHC 31.2 L, RDW Std Deviation 46.0 H, RDW Coeff of Ilene 13.6, Plt Count 348, MPV 10.8, Immature Gran % (Auto) 0.800, Neut % (Auto) 86.9 H, Lymph % (Auto) 7.6 L, [place] % (Auto) 4.2, Eos % (Auto) 0.3, Baso % (Auto) 0.2, Absolute Neuts (auto) 10.5 H, Absolute Lymphs (auto) 0.92, Nucleated RBC % 0 03/16/22 06:05: Sodium 133 L, Potassium 3.6, Chloride 102, Carbon Dioxide 14.0 L, Anion Gap 17 H, BUN 9, Creatinine 0.74, Estim Creat Clear Calc 98.35, Est GFR (MDRD) Af Amer 107, Est GFR (MDRD) Non-Af 88, BUN/Creatinine Ratio 12.2, Glucose 367 H, Calcium 8.9, C-React Prot Ext Range 217.00 H 03/16/22 06:05: ESR 68 H 03/16/22 06:05: C-React Prot Ext Range Cancelled Radiology Impression Abdomen/Pelvis CT 03/15/22 18:20 IMPRESSION: (NOT LISTED IN ORDER OF SIGNIFICANCE) Stable pancreatic fluid collection around the tail of the pancreas. Findings can suggest necrotizing pancreatitis. There are bilateral pleural effusions. There is bilateral pneumonia. Other findings as above. Electronically Signed: Anupam Valerio MD at 19:29 EDT , Chest X-Ray 03/15/22 18:40 IMPRESSION: There is a left pleural effusion. Electronically Signed: Anupam Valerio MD at 20:18 EDT , Chest X-Ray 03/16/22 07:20 IMPRESSION: Small to moderate left pleural effusion, similar compared to the prior. Electronically Signed: Chandrakant Tenorio MD at 7:40 EDT , Charges/Coding Visit Charges Inpatient E&M: 79610 Init Hosp L3
[2022-03-16 08:35] LABS: International Normalized Ratio 1.5; Prothrombin Time (Protime)PT. 17.9 SECONDS (11.7-14.9)
[2022-03-16 08:36] LABS: Partial Thromboplast Time 25.7 Seconds (24.1-36.2)
[2022-03-16 09:12] LABS: LDH 188 U/L (84-246)
--- NOTE | 2022-03-16 10:06 | PN.HOSP_ITS ---
Documented by User: Gertrude Joyner NP-C 03/16/22 10:12 Subjective Subjective Patient seen and examined. Patient lying in bed no distress noted. Patient's family and Dr. Xavier at bedside discussing plan of care for patient for today. Objective Data Objective Data Vital Signs: Vital Signs Temp Pulse Resp BP Pulse Ox 97.6 F L 83 20 H 150/74 H 96 03/16/22 03:30 03/16/22 07:00 03/16/22 03:30 03/16/22 03:30 03/16/22 07:33 Oxygen Delivery Method Room Air Weight: 241 lb 6.499 oz Body Mass Index (BMI) 34.6 Intake & Output: Intake and Output for Last 24 Hours 03/14/22 03/15/22 03/16/22 23:59 23:59 23:59 Intake Total 6646.25 / 6766.25 6515.00 / 6715.00 1475.0 / 1475.0 Output Total 1400 / 2900 1500 / 1500 Balance 6646.25 / 5866.25 5115.00 / 3815.00 -25.0 / -25.0 Medical Nutrition Assessment Dietitian: Malnutrition Criteria Met Start: 03/13/22 15:29 Freq: Status: Active Protocol: Document 03/13/22 14:54 AG (Rec: 03/13/22 15:29 [id number]) Nutrition Malnutrition Evidence of Malnutrition Exists Yes Malnutrition (severe): Chronic Evidenced By Suboptimal Energy Intake ( Severe),Weight Loss (Severe) Clinical Problem Chronic Disease or Condition Related Malnutrition Etiology severe, chronic malnutrition r /t GI dysfunction Signs/Symptoms as evidenced by estimated PO intake meeting <75% of estimated energy needs >3 months; unintentional wt loss of 38.6#/14% x 5 months Status Active Problem Recommendation Dietitian Recommendations/Changes recommend advance diet as tolerated to CHO controlled, fat restricted, may benefit from ensure clear w/ medpass once diet advanced given malnutrition; consider nutrition support if unable to advance diet- consult RDN for further recommendations as indicated. Lab / Micro Data Result Diagrams: 03/16/22 06:05 03/16/22 06:05 Labs: Laboratory Results - last 24 hr 03/15/22 11:27: POC Glucose 339 H 03/15/22 17:42: POC Glucose 310 H 03/15/22 22:51: POC Glucose 319 H 03/16/22 05:44: POC Glucose 313 H 03/16/22 06:05: WBC 12.1 H, RBC 3.02 L, Hgb 8.6 L, Hct 27.6 L, MCV 91.4, MCH 28.5, MCHC 31.2 L, RDW Std Deviation 46.0 H, RDW Coeff of Ilene 13.6, Plt Count 348, MPV 10.8, Immature Gran % (Auto) 0.800, Neut % (Auto) 86.9 H, Lymph % (Auto) 7.6 L, [place] % (Auto) 4.2, Eos % (Auto) 0.3, Baso % (Auto) 0.2, Absolute Neuts (auto) 10.5 H, Absolute Lymphs (auto) 0.92, Nucleated RBC % 0 03/16/22 06:05: Sodium 133 L, Potassium 3.6, Chloride 102, Carbon Dioxide 14.0 L , Anion Gap 17 H, BUN 9, Creatinine 0.74, Estim Creat Clear Calc 98.35, Est GFR (MDRD) Af Amer 107, Est GFR (MDRD) Non-Af 88, BUN/Creatinine Ratio 12.2, Glucose 367 H, Calcium 8.9, C-React Prot Ext Range 217.00 H 03/16/22 06:05: ESR 68 H 03/16/22 06:05: C-React Prot Ext Range Cancelled 03/16/22 06:05: Lactate Dehydrogenase 188 03/16/22 07:45: PT 17.9 H, INR 1.5, APTT 25.7 Micro: Microbiology 03/12/22 14:30 Blood Culture (Wb) - Right Forearm Blood Culture - Preliminary No growth in 48 hours. 03/12/22 14:25 Blood Culture (Wb) - Anticubital Right Blood Culture - Preliminary No growth in 48 hours. 03/12/22 14:30 Nasal Secretion SARS-CoV-2 & FLU Antigen (Rapid) - Final Radiography Diagnostic Testing: Radiology Impression Abdomen/Pelvis CT 03/15/22 18:20 IMPRESSION: (NOT LISTED IN ORDER OF SIGNIFICANCE) Stable pancreatic fluid collection around the tail of the pancreas. Findings can suggest necrotizing pancreatitis. There are bilateral pleural effusions. There is bilateral pneumonia. Other findings as above. Electronically Signed: Anupam Valerio MD at 19:29 EDT , Chest X-Ray 03/15/22 18:40 IMPRESSION: There is a left pleural effusion. Electronically Signed: Anupam Valerio MD at 20:18 EDT , Chest X-Ray 03/16/22 07:20 IMPRESSION: Small to moderate left pleural effusion, similar compared to the prior. Electronically Signed: Chandrakant Tenorio MD at 7:40 EDT , Physical Exam Const alert, oriented x3 and no apparent distress General Appearance: cooperative HEENT normocephalic and head/scalp atraumatic Eyes conjunctivae normal and no scleral icterus Neck supple General: trachea midline Lymph Lymphatic: no lymphadenopathy noted Resp normal respiratory effort and clear to auscultation bilaterally Effort and Inspection: able to speak in complete sentences and symmetric chest movement Cardio regular rate, regular rhythm, S1 normal heart sound and S2 normal heart sound Rate: tachycardic GI soft to palpation and non-distended Inspection: abdominal distention Auscultation: hypoactive bowel sounds Palpation: firm and tender epigastric, LUQ and RUQ Extremity normal to inspection, full ROM and no clubbing, cyanosis or edema Skin no rashes or lesions noted, no wounds and skin turgor normal General Skin Exam: turgor normal Neuro oriented x3, no focal motor deficits and no sensory deficits noted Sensorium / Orientation: awake and alert Speech: speech normal Psych affect normal Assessment & Plan Assessment/Plan (1) Pancreatitis: QUALIFIERS: Chronicity: acute (2) Diabetes: QUALIFIERS: Diabetes mellitus complication status: with hyperglycemia Diabetes mellitus [facility] 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 Acute pancreatitis -Patient continues to have abdominal pain, states that pain medication is e ffective at controlling some of the pain. -Patient reports she drinks approximately 6 beers per week -Repeat CT 03/15/22 demonstrates stable pancreatic fluid collection around the tail of the pancreas. There are bilateral pleural effusions. There is bilateral pneumonia. -GI following -Continue Reglan, azithromycin, Zosyn, IV fluids, clear liquid diet -Patient may need drainage via IR if no improvement -CXR demonstrates small pleural effusion, pulmonary consulted. 2. Atrial fibrillation -Continue scheduled IV metoprolol -Patient was not previously on anticoagulation 3. Diabetes mellitus type 2 -Continue every 6 blood sugar checks with sliding scale insulin coverage 4. Hyperlipidemia -Statin therapy on hold DVT prophylaxis-Lovenox This patient was seen by JUAN Alcantara under the supervision of Dr. Alvarez. 12 minutes spent in clinical coordination of patient's plan of care. Documented by User: Dr. Antonio Alvarez MD 03/16/22 12:21 Objective Data Lab / Micro Data Result Diagrams: 03/16/22 06:05 03/16/22 06:05 Assessment & Plan Addt'l Comments This patient was seen in conjunction with JUAN Alcantara . I have independently interviewed and examined the patient and reviewed pertinent historical, laboratory, and other data. Please refer to JUAN Alcantara note for details of this patient's presentation, findings, and recommendations. I have reviewed JUAN Alcantara note and concur with documented findings. In brief, patient is a 51-year-old lady who presented with fever and abdominal pain imaging studies obtained on admission came back consistent with necrotizing pancreatitis admitted to monitored bed with consultation placed to GI Dr. Curtis 03/14/2022; patient seen still complains of abdominal pain remains on broad- spectrum antibiotic therapy. Patient was started on clear liquids 03/15/2022; patient has tolerated clear liquids well so far. Plan is to advance diet as tolerated. Patient is anemic with hemoglobin of 8.0 we will continue with monitoring of H&H 03/16/2022; CT of the abdomen obtained today prior demonstrated stable pancreatic fluid collection around the tail of the pancreas. Patient was also found to have bilateral pleural effusion and bilateral pneumonia. Case was discussed with Dr. Curtis who recommended consulting pulmonary medicine. Patient was seen in consultation by Dr. Xavier he does not recommend any thoracocentesis at this point patient blood glucose remain uncontrolled adjusted insulin levels with initiation of scheduled long-acting insulin Physical Examination: GENERAL: cooperative HEENT: Atraumatic; EYES; Anicteric, Normal Conjunctiva NECK; supple, normal thyroid, RESPIRATORY: Diminished to auscultation CARDIOVASCULAR: Regular S1 S2, GI: soft, normoactive bowel sounds, : No Renal angle tenderness; EXTREMITIES: No edema, no clubbing, MUSCULOSKELETAL: no muscle wasting NEURO: Awake; no lateralizing signs. SKIN: No Rash PSYCH; Flat affect Assessment: 1. Necrotizing pancreatitis 2. Recent ERCP on 03/01/2022 3. Diabetes mellitus type 2 4. Chronic kidney disease stage III 5. Gastroparesis 6. Essential hypertension 7. Dyslipidemia 8. Class I obesity with BMI of 34.6 9. Hypokalemia 10. DVT prophylaxis 11. Anemia of chronic disorder 12. Bilateral pleural effusion Recommendations: 1. I have discussed the results of my overview and impressions with the patient 2. Options for management were reviewed Total time spent by myself and the advanced practice practitioner evaluating patient, reviewing labs, subsequent management decisions, discussion with tamera jean as well as other providers 40 minutes ( 25 of which was spent by myself) Charges/Coding Visit Charges Inpatient E&M: 45798 Subs Hosp L2
--- NOTE | 2022-03-16 10:06 | US_ITS ---
STUDY: SUPERFICIAL ULTRASOUND - BILATERAL CHEST REASON FOR EXAM: Female, 51 years old. pleural effusion TECHNIQUE: A superficial ultrasound was performed with real-time and static wood-scale imaging. COMPARISON: None. FINDINGS: Small volume bilateral pleural effusions are identified, left slightly larger than right. No obvious loculation. US/Chest IMPRESSION: Small volume pleural effusions. Electronically Signed: Tian Pepper MD ([place]) at 12:43 EDT Reading Location ID and State: [address] [place] , Service support ,
[2022-03-16] MEDS: HYDROmorphone 1 MG/ML Syringe 0.5 MG IV ×3 (10:32→22:56)
[2022-03-16] MEDS: Docusate Sodium 100 MG Capsule 200 MG PO ×2 (10:32→22:59)
[2022-03-16] MEDS: Furosemide 40 MG/4 ML Vial IV ×2 (10:38→17:55)
--- NOTE | 2022-03-16 11:48 | US_ITS ---
STUDY: ABDOMINAL ULTRASOUND - 4 quadrants for ascites REASON FOR VISIT: Female, 51 years old pancreatic necrosis, evaluation for ascites TECHNIQUE: Ultrasound evaluation of the all 4 quadrants was performed with real-time and static wood-scale imaging. TECHNICAL QUALITY: Adequate. COMPARISON: CT 03/15/2022 FINDINGS: No demonstrated ascites in any of the 4 quadrants. US/Abdomen Limited IMPRESSION: No detected ascites. Electronically Signed: Tian Pepper MD ([place]) at 15:45 EDT Reading Location ID and State: , Service support ,
[2022-03-16 11:55] LABS: Bedside Glucose 355 mg/dL (74-106)
[2022-03-16] MEDS: Ensure Clear 120 ML Liquid PO ×2 (15:38→23:00)
--- NOTE | 2022-03-16 17:38 | PN_ITS ---
Subjective Subjective She has had 2 bowel movements and has been urinating after given Lasix. She did vomit overnight. She has been trying to intake as much liquids as possible. Her abdominal pain is at worst a 9 out of 10. For the most part is ranging from a 4-5 out of 10. Objective Data Objective Data Vital Signs: Vital Signs Temp Pulse Resp BP Pulse Ox 98.2 F 85 16 118/66 93 03/16/22 16:20 03/16/22 16:20 03/16/22 16:20 03/16/22 16:20 03/16/22 16:20 Oxygen Delivery Method Room Air Weight: 241 lb 6.499 oz Body Mass Index (BMI) 34.6 Intake & Output: Intake and Output for Last 24 Hours 03/14/22 03/15/22 03/16/22 23:59 23:59 23:59 Intake Total 6646.25 / 6766.25 6515.00 / 6715.00 2165.0 / 2165.0 Output Total 1400 / 2900 1500 / 1500 Balance 6646.25 / 5866.25 5115.00 / 3815.00 665.0 / 665.0 Medical Nutrition Assessment Dietitian: Malnutrition Criteria Met Start: 03/13/22 15:29 Freq: Status: Active Protocol: Document 03/16/22 16:33 AG (Rec: 03/16/22 16:33 AG Desktop) Nutrition Malnutrition Evidence of Malnutrition Exists Yes Malnutrition (severe): Chronic Evidenced By Suboptimal Energy Intake ( Severe),Weight Loss (Severe) Clinical Problem Chronic Disease or Condition Related Malnutrition Etiology severe, chronic malnutrition r /t GI dysfunction Signs/Symptoms as evidenced by estimated PO intake meeting <75% of estimated energy needs >3 months; unintentional wt loss of 38.6#/14% x 5 months Status Active Problem Recommendation Dietitian Recommendations/Changes recommend advance diet as tolerated to regular; will add ensure clear w/ medpass given malnutrition; strongly recommend consider nutrition support if unable to advance diet- consult RDN for further recommendations as indicated. Lab / Micro Data Result Diagrams: 03/16/22 06:05 03/16/22 06:05 Labs: Laboratory Results - last 24 hr 03/15/22 17:42: POC Glucose 310 H 03/15/22 22:51: POC Glucose 319 H 03/16/22 05:44: POC Glucose 313 H 03/16/22 06:05: WBC 12.1 H, RBC 3.02 L, Hgb 8.6 L, Hct 27.6 L, MCV 91.4, MCH 28.5, MCHC 31.2 L, RDW Std Deviation 46.0 H, RDW Coeff of Ilene 13.6, Plt Count 34 8, MPV 10.8, Immature Gran % (Auto) 0.800, Neut % (Auto) 86.9 H, Lymph % (Auto) 7.6 L, [place] % (Auto) 4.2, Eos % (Auto) 0.3, Baso % (Auto) 0.2, Absolute Neuts (auto) 10.5 H, Absolute Lymphs (auto) 0.92, Nucleated RBC % 0 03/16/22 06:05: Sodium 133 L, Potassium 3.6, Chloride 102, Carbon Dioxide 14.0 L , Anion Gap 17 H, BUN 9, Creatinine 0.74, Estim Creat Clear Calc 98.35, Est GFR (MDRD) Af Amer 107, Est GFR (MDRD) Non-Af 88, BUN/Creatinine Ratio 12.2, Glucose 367 H, Calcium 8.9, C-React Prot Ext Range 217.00 H 03/16/22 06:05: ESR 68 H 03/16/22 06:05: C-React Prot Ext Range Cancelled 03/16/22 06:05: Lactate Dehydrogenase 188 03/16/22 07:45: PT 17.9 H, INR 1.5, APTT 25.7 03/16/22 11:40: POC Glucose 355 H Micro: Microbiology 03/12/22 14:30 Blood Culture (Wb) - Right Forearm Blood Culture - Preliminary No growth in 48 hours. 03/12/22 14:25 Blood Culture (Wb) - Anticubital Right Blood Culture - Preliminary No growth in 48 hours. 03/12/22 14:30 Nasal Secretion SARS-CoV-2 & FLU Antigen (Rapid) - Final Radiography Diagnostic Testing: Radiology Impression Abdomen/Pelvis CT 03/15/22 18:20 IMPRESSION: (NOT LISTED IN ORDER OF SIGNIFICANCE) Stable pancreatic fluid collection around the tail of the pancreas. Findings can suggest necrotizing pancreatitis. There are bilateral pleural effusions. There is bilateral pneumonia. Other findings as above. Electronically Signed: Anupam Valerio MD at 19:29 EDT , Chest X-Ray 03/15/22 18:40 IMPRESSION: There is a left pleural effusion. Electronically Signed: Anupam Valerio MD at 20:18 EDT , Chest X-Ray 03/16/22 07:20 IMPRESSION: Small to moderate left pleural effusion, similar compared to the prior. Electronically Signed: Chandrakant Tenorio MD at 7:40 EDT , Chest Ultrasound 03/16/22 10:06 IMPRESSION: Small volume pleural effusions. Electronically Signed: Tian Pepper MD ([facility]) at 12:43 EDT , Abdomen Ultrasound 03/16/22 11:48 IMPRESSION: No detected ascites. Electronically Signed: Tian Pepper MD ([facility]) at 15:45 EDT , Physical Exam Const alert General Appearance: cooperative Orientation / Consciousness: oriented to person HEENT hearing grossly normal bilaterally Head and Scalp: normal to inspection Face and Sinus: face symmetric Nose: external nose normal Mouth: oral and palatal mucosa normal Eyes conjunctivae normal General Eye: normal appearance of both eyes Neck full ROM General: normal visual inspection Lymph Lymphatic: no lymphadenopathy noted Chest inspection of chest normal and palpation of chest normal Chest: symmetrical chest wall rise Resp normal respiratory effort Effort and Inspection: able to speak in complete sentences Cardio regular rate GI non-distended Percussion: normal to percussion Rectal Exam: deferred Neuro Speech: speech normal Gait (Neuro): normal gait Assessment & Plan Assessment/Plan (1) Pleural effusion: PLAN: I appreciate a pulmonology consult. The bilateral pleural effusions are possibly secondary to pancreatitis or excess fluid administration. Patient did not need thoracentesis and has been urinating very well. Recommend to recheck chest x-ray tomorrow. (2) Acute necrosis of pancreas: PLAN: Patient went down to 4 a sampling and possibly removal of the fluid in the left upper quadrant. However there was no fluid to remove. Hopefully with administration of albumin and her nutrition improving she will be able to eat and that fluid collection will turn into a pseudocyst and will not require any intervention. (3) Gastroparesis: PLAN: She is on Reglan therapy in a.m. sisomicin for her already chronic diabetic gastroparesis. This has been exacerbated by pain medicine and by inflammation in the tail of the pancreas. (4) Pancreatitis: QUALIFIERS: Chronicity: acute PLAN: Her inflammatory markers are slightly getting better. I told her that if she is not able to eat I would highly recommend that she get TPN and continue oral feedings as supplementation. Charges/Coding Visit Charges Inpatient E&M: 34026 Subs Hosp L3
[2022-03-16] MEDS: Insulin Lispro 100 UNIT/ML INSULN.PEN 15 UNIT SC (18:28)
[2022-03-16] MEDS: Metoprolol Tartrate 25 MG Tablet PO (22:59)
[2022-03-16] MEDS: traZODone 100 MG Tablet 200 MG PO (22:59)
[2022-03-16 23:35] LABS: Glucose 534 mg/dL (74-106)
[2022-03-17] VITALS (12 sets, daily range): BP systolic 117–146; BP diastolic 67–84; PULSE 75–92; RESP 16–20; TEMP 36.8–37.3; O2SAT 93–98
[2022-03-17] MEDS: Insulin Glargine-YFGN 100 UNIT/ML Pen 10 UNIT SC (00:56)
[2022-03-17] MEDS: Insulin Glargine-YFGN 100 UNIT/ML Pen 15 UNIT SC (00:57)
[2022-03-17] MEDS: Insulin Lispro 100 UNIT/ML INSULN.PEN 15 UNIT SC (00:58)
[2022-03-17] MEDS: Albumin Human 25% (50 mL) 12.5 GM/50 ML IV.SOLN IV ×3 (05:50→22:17)
[2022-03-17] MEDS: Metoclopramide 10 MG/2 ML Vial 5 MG IV ×3 (05:50→17:40)
[2022-03-17] MEDS: Insulin Lispro 100 UNIT/ML INSULN.PEN SC ×3 (05:51→17:39)
[2022-03-17] MEDS: HYDROmorphone 1 MG/ML Syringe 0.5 MG IV ×3 (05:57→21:05)
[2022-03-17 06:33] LABS: Absolute Neutrophil Count 5.6 X10^3/uL (2.0-7.7); Basophil# 0.02 X10^3/uL; Basophil% 0.3 % (0-1); Eosinophils% 2.5 % (0-5); Hematocrit 26.1 % (37-47); Hemoglobin 8.7 g/dL (12.0-15.0); Lymphocyte % 18.8 % (19-41); Mean Corp Hgb Conc 33.3 g/dL (32-36); Mean Corpuscular Hgb 29.3 pg (27.0-32.0); Mean Corpuscular Volume 87.9 fL (81-99); Mean Platelet Vol. 10.6 fl (6.2-12.0); Monocyte# 0.55 X10^3/uL; Monocyte% 6.9 % (0-10); NRBC Flagged by Analyzer 0 % (0-5); Neutrophil # 5.62 X10^3/uL (2.7-7.7); Neutrophil % 70.2 % (47-70); POSITIVE MORPHOLOGY YES; Platelet Count 398 K/mm3 (150-450); RBC Distribution Width CV 13.6 % (11.6-14.6); RBC Distribution Width SD 43.8 fl (35.1-43.9); Red Blood Count 2.97 M/mm3 (4.2-5.4)
[2022-03-17 06:45] LABS: Differential Indicated SCAN CRITERIA MET
[2022-03-17 06:53] LABS: Erythrocyte Sedimentation Rate 76 mm/hr (0-30)
[2022-03-17 06:55] LABS: Bedside Glucose 394 mg/dL (74-106)
--- NOTE | 2022-03-17 07:10 | PCM.PN.HOSP ---
Subjective Subjective Patient with ongoing epigastric discomfort and pain, abdominal bloating additionally, discomfort rated 4 to 5-10 in severity currently, ongoing episodes of nausea with bouts of emesis especially with any movement attempts. Given significant ongoing symptoms and presentation history as well as imaging discussed patient with general surgery who is also evaluating the patient and recommended initiation of TPN which has been started with consult placed to dietitian as well as planned repeat CT scan Saturday to further assess potential needs for drainage which was discussed with patient and she was amenable. Patient denies fevers, chills, chest pain or dyspnea. Objective Data Objective Data Vital Signs: Vital Signs Temp Pulse Resp BP Pulse Ox 98.4 F 89 20 H 135/71 H 94 03/17/22 05:39 03/17/22 05:39 03/17/22 05:39 03/17/22 05:39 03/17/22 05:39 Oxygen Flow Rate (L/min) 3 Oxygen Delivery Method Room Air Weight: 241 lb 2.971 oz Body Mass Index (BMI) 34.6 Intake & Output: Intake and Output for Last 24 Hours 03/15/22 03/16/22 03/17/22 23:59 23:59 23:59 Intake Total 6515.00 / 6715.00 3330.0 / 3330.0 100 / 100 Output Total 1400 / 2900 1500 / 1500 Balance 5115.00 / 3815.00 1830.0 / 1830.0 100 / 100 Medical Nutrition Assessment Dietitian: Malnutrition Criteria Met Start: 03/13/22 15:29 Freq: Status: Active Protocol: Document 03/16/22 16:33 AG (Rec: 03/16/22 16:33 AG Desktop) Nutrition Malnutrition Evidence of Malnutrition Exists Yes Malnutrition (severe): Chronic Evidenced By Suboptimal Energy Intake ( Severe),Weight Loss (Severe) Clinical Problem Chronic Disease or Condition Related Malnutrition Etiology severe, chronic malnutrition r /t GI dysfunction Signs/Symptoms as evidenced by estimated PO intake meeting <75% of estimated energy needs >3 months; unintentional wt loss of 38.6#/14% x 5 months Status Active Problem Recommendation Dietitian Recommendations/Changes recommend advance diet as tolerated to regular; will add ensure clear w/ medpass given malnutrition; strongly recommend consider nutrition support if unable to advance diet- consult RDN for further recommendations as indicated. Lab / Micro Data Result Diagrams: 03/17/22 05:44 03/17/22 05:44 Labs: Laboratory Results - last 24 hr 03/16/22 06:05: Sodium 133 L, Potassium 3.6, Chloride 102, Carbon Dioxide 14.0 L, Anion Gap 17 H, BUN 9, Creatinine 0.74, Estim Creat Clear Calc 98.35, Est GFR (MDRD) Af Amer 107, Est GFR (MDRD) Non-Af 88, BUN/Creatinine Ratio 12.2, Glucose 367 H, Calcium 8.9, C-React Prot Ext Range 217.00 H 03/16/22 06:05: ESR 68 H 03/16/22 06:05: C-React Prot Ext Range Cancelled 03/16/22 06:05: Lactate Dehydrogenase 188 03/16/22 07:45: PT 17.9 H, INR 1.5, APTT 25.7 03/16/22 11:40: POC Glucose 355 H 03/16/22 23:05: Glucose 534 H* 03/17/22 05:42: POC Glucose 394 H 03/17/22 05:44: WBC 8.0, RBC 2.97 L, Hgb 8.7 L, Hct 26.1 L, MCV 87.9, MCH 29.3, MCHC 33.3 D, RDW Std Deviation 43.8, RDW Coeff of Ilene 13.6, Plt Count 398, MPV 10.6, Immature Gran % (Auto) 1.300 H, Neut % (Auto) 70.2 H, Lymph % (Auto) 18.8 L, [place] % (Auto) 6.9, Eos % (Auto) 2.5, Baso % (Auto) 0.3, Absolute Neuts (auto) 5.6, Absolute Lymphs (auto) 1.50, Nucleated RBC % 0 03/17/22 05:44: ESR 76 H Micro: Microbiology 03/12/22 14:30 Blood Culture (Wb) - Right Forearm Blood Culture - Preliminary No growth in 48 hours. 03/12/22 14:25 Blood Culture (Wb) - Anticubital Right Blood Culture - Preliminary No growth in 48 hours. 03/12/22 14:30 Nasal Secretion SARS-CoV-2 & FLU Antigen (Rapid) - Final Radiography Diagnostic Testing: Radiology Impression Chest X-Ray 03/16/22 07:20 IMPRESSION: Small to moderate left pleural effusion, similar compared to the prior. Electronically Signed: Chandrakant Tenorio MD at 7:40 EDT , Chest Ultrasound 03/16/22 10:06 IMPRESSION: Small volume pleural effusions. Electronically Signed: Tian Pepper MD ([facility]) at 12:43 EDT , Abdomen Ultrasound 03/16/22 11:48 IMPRESSION: No detected ascites. Electronically Signed: Tian Pepper MD ([facility]) at 15:45 EDT , Physical Exam Narrative Physical Examination: General: Awake, alert, oriented x 3 and cooperative, seated upright in the PCU bed, fatigued and ill-appearing. Skin: Pale color, normal turgor, no icterus, no cyanosis, stage ecchymoses likely from the lab draws. HEENT: AT/NC, EOMI, PERRLA, dry MM. Lungs: Diminished, greater bases, no marked rales, rhonchi or wheezing, appropriate effort. Heart: Currently regular rate and rhythm; no gallop, rub audible. Abdomen: Soft, significant tenderness to palpation in the epigastric region with some voluntary guarding, no severe rebound, mildly distended, hyperactive bowel sounds currently. Extremities: No cyanosis, no clubbing, prior BL LE edema improved. Neurological: Patient awake, alert, oriented as noted, cognitive function intact; pupils equally reactive to light and accommodation, cranial nerves II-XII grossly normal, moving all 4 extremities, no focal deficits, strength severely globally decreased secondary to acute presentation. Psychiatric: Affect appears uncomfortable, ill-appearing, no acute evidence of depressive or anxiety feelings. Assessment & Plan Assessment/Plan (1) Acute necrosis of pancreas: (2) Pancreatitis: QUALIFIERS: Acute pancreatitis complication: unspecified Chronicity: acute Pancreatitis type: other Qualified Code(s): K85.80 - Other acute pancreatitis without necrosis or infection (3) Pleural effusion: PLAN: The patient is a 51 y/o F w/ PMHx: CKD stage III unclear subtype, Obesity, Chronic normocytic anemia, PAF, HTN, HLD, GERD, Depression and Anxiety, LANA, IDDM with gastroparesis who presents to the [facility] ED on 03/12/22 with history of right upper abdominal pain with history of prior biliary stent placed on 03/01/2022 with difficulty eating postprocedure however pain became more significant and severe on day of presentation. #1. Acute pancreatitis w/ abdominal pain with concern for pancreatic necrosis: CT abdomen and pelvis upon presentation with fluid collection around the pancreas concerning for possible necrosis with at that time CBC with WC 16 with left shift, chest x-ray with no acute cardiopulmonary finding. Patient initiated on IV Zosyn and gastroenterology Dr. Curtis consulted. Patient maintained in the PCU, continued ESR and CRP inflammatory marker trending (03/16/22 CRP 217/ESR 68-->03/17/22 CRP 171/ESR 76), continue IV Zosyn as well as IV azithromycin per gastroenterology discretion, will continue recommendations per gastroenterology, repeat CT abdomen pelvis 03/15/2022 with continued fluid collection around the pancreas as well as again incidentally noted small left-sided pleural effusion, patient may require ultimately percutaneous drainage of the pancreatic fluid collection noted on CT imaging. 03/16/2022 abdominal ultrasound unremarkable with no evidence of any ascites patient currently maintained on clear liquids. Continue as needed antiemetics as well as as needed pain regimen. Patient maintained on IV Protonix. Nutrition is consulted and following and have requested TPN be initiated, awaiting their input and discussions to ascertain how much insulin should also be included given significant hyperglycemia with rise expected. 03/17/2022 General surgery consulted and discussed case with him given significant presentation and ongoing issues with planned repeat CT assessment 03/19/2022 and potential need for IR intervention at that time. #2. Left-sided pleural effusions: Patient with upon presentation CT with small left-sided effusion, follow-up chest imaging continues to demonstrate similar pleural effusion, likely related to patient's acute pancreatitis, typically tend to be mild to moderate in nature and typically left-sided and exudative, given no respiratory compromise per pulmonary medicine thoracentesis deferred, patient initiated on IV Lasix 03/16/2022, will discontinue after doses today and continue to closely monitor. #3. IDDM complicated by gastroparesis with significant hyperglycemia: Patient maintained on subcu insulin regimen, currently on clear liquids but as noted has been having bouts of nausea and emesis and not tolerating well, continue every 6 hour insulin sliding scale however will add twice daily long-acting low-dose given oral intake but expect this will need to be increased but will defer as awaiting dietitian input for TPN initiation and plan to place continuous insulin with this administration. #4. Chronic normocytic anemia: Admission hemoglobin 10.1, most recently 03/16/2022 8.6-->03/17/2022 hemoglobin 8.7, continue to trend. #5. PAF: Patient previously transitioned to IV Lopressor, will attempt transition back to oral metoprolol regimen however if ongoing episodes of emesis will need to transition back to IV version. #6. Hypertension: Patient previously transitioned to IV Lopressor, will attempt transition back to oral metoprolol regimen but low threshold to return to IV if unable to tolerate, currently on IV Lasix to assist with pleural effusions secondary to ongoing acute pancreatitis, will discontinue after doses today. #7. Hyperlipidemia: Statin therapy held. #8. Depression and anxiety: From current list patient not on any chronic regimen, encourage continued outpatient follow-up and counseling as needed. #9. Obesity: Weight loss and lifestyle changes encouraged. #10. GERD: We will maintain on IV PPI as noted. #11. LANA: CPAP if amenable. #12. DVT prophylaxis: SCDs, Lovenox. Charges/Coding Visit Charges Inpatient E&M: 32899 [facility] L3
[2022-03-17 07:18] LABS: Differential Comment SCANNED
[2022-03-17 07:45] LABS: ALB/GLOB Ratio 0.6 RATIO (0.9-2.4); AST(SGOT) 15 U/L (15-37); Alanine Aminotransfer ALT/SGPT 16 U/L (13-56); Albumin, Serum 2.5 g/dL (3.2-5.0); Alkaline Phosphatase 86 U/L (45-117); Anion Gap 12 (5-15); BUN 10 mg/dL (7-18); BUN/Creat Ratio 9.5 RATIO (10-20); Calcium,Total 8.9 mg/dL (8.5-10.1); Chloride 97 mmol/L (98-107); Creatinine, Serum 1.05 mg/dL (0.55-1.02); EST Glomerular Filtration Rate 59 mL/min (>60); Est Glom Filt Rate - Afr Amer 71 mL/min (>60); Estimated Creatinine Clearance 69.32 ml/min; Glucose 435 mg/dL (74-106); Lipase 46 U/L (73-393); Potassium 2.6 mmol/L (3.5-5.1); Protein, Total 6.5 g/dL (6.4-8.2); Sodium Level 135 mmol/L (136-145)
--- NOTE | 2022-03-17 08:44 | CON.PCM.SX_ITS ---
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 She does state her pain is improved to a 4/10 if she does not move. Patient is currently on clear liquids recommend TPN. Did review CT abdomen pelvis that showed large fluid collection which I would agree could suggest necrotizing pancreatitis and pelvis from the to the there is less air in the fluid collection?air could also be due to the previous ERCP. Plan to repeat CT abdomen pelvis with IV contrast on Saturday to continue to follow if this is not improving patient would likely benefit from tertiary care transfer which has interventional radiology. Would plan to repeat CT abdomen pelvis sooner if patient has increased abdominal pain/fever or other vital sign changes. Hypokalemia?replaced 80 mEq this morning we will recheck later today. Sally Madrid M.D. Pager: [phone] [facility] [address] [place] [address], [facility], [address] [place] [address] Office: [phone] HPI Consult Data Date of Consult: 03/18/22 HPI Narrative HPI Narrative: KORI SHEPHERD, is a 51 F who to the hospital due to pancreatitis/necrotizing pancreatitis status post ERCP due to biliary structure with pancreatic and biliary stent placed--03/12/2022. Consulted by hospitalist due to the possible necrotizing pancreatitis. Patient states her pain is a 4/10 currently if she is not moving. Patient states if he gets up to move she has nausea and vomiting. Patient is currently on clear liquids but unable to keep much down, potassium is 2.6. [facility] Medical History Alcohol use Allergies Anemia Anxiety Arthritis Atrial fibrillation Back problem COVID Depression Dietary restriction Excessive bleeding Gastritis GERD (gastroesophageal reflux disease) Heart murmur History of cardiac murmur History of edema History of renal disease HTN (hypertension) Hyperlipidemia Insulin dependent diabetes mellitus Leg cramps Liver disease Migraine Neuropathy Non-smoker Shortness of breath on exertion Sleep apnea Tubular adenoma of colon Vitamin deficiency Wears glasses Wears partial dentures Home Medications aspirin 81 mg tablet,delayed release 81 mg PO DAILY 07/11/20 [History Last Taken 03/12/22] insulin aspart U-100 100 unit/mL (3 mL) subcutaneous pen 9 unit SC TID ml 07/11/20 [History Last Taken 03/12/22] metoprolol tartrate 25 mg tablet 25 mg PO BID 07/11/20 [History Last Taken 03/12/22] multivitamin 1 tab PO DAILY 07/11/20 [History Last Taken 03/12/22] omega-3 fatty acids 1,000 mg capsule 1,000 mg PO DAILY 07/11/20 [History Last Ta kai 03/12/22] pravastatin 40 mg tablet 40 mg PO DAILY 07/11/20 [History Last Taken 03/11/22] ondansetron 4 mg disintegrating tablet 4 mg PO Q8H PRN #90 tab 12/27/21 [Rx Last Taken 03/12/22] Ajovy Autoinjector 225 mg SUBCUT QMONTH 12/28/21 [History Last Taken 02/28/22] Trulicity 3 mg SUBCUT NOVA 12/28/21 [History Last Taken 03/04/22] metoclopramide HCl 5 mg tablet 5 mg PO QAC #90 tab 01/17/22 [Rx Last Taken 03/12/22] scopolamine base 1 mg over 3 days transdermal patch 1 patch TRANSDERMAL Q72H #10 ea 02/12/22 [Rx Last Taken 03/12/22] Linzess 290 mcg PO DAILY 03/12/22 [History Last Taken 03/12/22] insulin glargine [Lantus Solostar U-100 Insulin] 50 unit SUBCUT QHS 03/12/22 [History Last Taken 03/11/22] vvftdx-pblwezmy-uebuoyz 24,000-76,000-120,000 unit capsule,delayed rel 1 cap PO TID #180 cap 03/12/22 [Rx Last Taken Unknown] methocarbamol 1,500 mg PO TID 03/12/22 [History Last Taken 03/12/22] omeprazole 40 mg PO DAILY 03/12/22 [History Last Taken 03/12/22] tizanidine 4 mg PO Q8H 03/12/22 [History Last Taken 03/12/22] trazodone 200 mg PO QHS 03/12/22 [History Last Taken 03/11/22] Allergy/AdvReac Type Severity Reaction Status Date / Time lactase [From Dairy Aid] Allergy Severe diarrhea Verified 03/12/22 13:58 codeine Allergy Intermediate mental Verified 03/12/22 13:58 status diphenhydramine Allergy Intermediate mental Verified 03/12/22 13:58 [From Benadryl Allergy] status quetiapine [From Seroquel] Allergy Intermediate about Verified 03/12/22 13:58 killed me - went into DKA morphine Allergy NEEDS Verified 03/12/22 13:58 FOLLOW-UP Family History Other Arthritis Cancer Depression Diabetes Kidney disease Surgical History History of esophagogastroduodenoscopy (EGD) History of hysterectomy Hx of colonoscopy Social History Smoking Status: Never smoker alcohol intake: current ROS Constitutional Constitutional: Denies chills or fever(s) Eyes Eyes: Denies blurry vision ENT HEENT: Denies dysphagia Cardiovascular Cardiovascular: Denies chest pain Respiratory/Chest Respiratory/Chest: Denies cough or dyspnea Gastrointestinal Gastrointestinal: Reports abdominal pain, bloating, nausea and vomiting; Denies constipation or hematochezia Genitourinary Genitourinary: Denies difficulty urinating Musculoskeletal Musculoskeletal: Denies joint pain Integumentary Integumentary: Denies rash Neurologic Neurologic: Denies abnormal speech Psychiatric Psychiatric: Denies anxiety or depression Endocrine Endocrinology: Denies fatigue Hematologic/Lymphatic Hematologic/Lymphatic: Denies easy bleeding or easy bruising Physical Exam Const alert, oriented x3 and no apparent distress HEENT normocephalic and head/scalp atraumatic Resp normal respiratory effort Cardio regular rate GI soft to palpation; Negative for non-distended Palpation: tender LLQ, LUQ and other (No peritoneal signs); Negative for guarding Extremity no clubbing, cyanosis or edema Extremity Narrative: Upper extremity PICC line in place Skin no rashes or lesions noted Neuro CN's II-XII intact bilaterally Psych mental status grossly normal Medical Records Data Medical Nutrition Assessment Dietitian: Malnutrition Criteria Met Start: 03/13/22 15:29 Freq: Status: Active Protocol: Document 03/16/22 16:33 AG (Rec: 03/16/22 16:33 AG Desktop) Nutrition Malnutrition Evidence of Malnutrition Exists Yes Malnutrition (severe): Chronic Evidenced By Suboptimal Energy Intake ( Severe),Weight Loss (Severe) Clinical Problem Chronic Disease or Condition Related Malnutrition Etiology severe, chronic malnutrition r /t GI dysfunction Signs/Symptoms as evidenced by estimated PO intake meeting <75% of estimated energy needs >3 months; unintentional wt loss of 38.6#/14% x 5 months Status Active Problem Recommendation Dietitian Recommendations/Changes recommend advance diet as tolerated to regular; will add ensure clear w/ medpass given malnutrition; strongly recommend consider nutrition support if unable to advance diet- consult RDN for further recommendations as indicated. Lab / Micro Data Result Diagrams: 03/18/22 04:21 03/18/22 04:21 Labs: Laboratory Results - last 24 hr 03/16/22 06:05: Lactate Dehydrogenase 188 03/16/22 11:40: POC Glucose 355 H 03/16/22 23:05: Glucose 534 H* 03/17/22 05:42: POC Glucose 394 H 03/17/22 05:44: WBC 8.0, RBC 2.97 L, Hgb 8.7 L, Hct 26.1 L, MCV 87.9, MCH 29.3, MCHC 33.3 D, RDW Std Deviation 43.8, RDW Coeff of Ilene 13.6, Plt Count 398, MPV 10.6, Immature Gran % (Auto) 1.300 H, Neut % (Auto) 70.2 H, Lymph % (Auto) 18.8 L, Arthur % (Auto) 6.9, Eos % (Auto) 2.5, Baso % (Auto) 0.3, Absolute Neuts (auto) 5.6, Absolute Lymphs (auto) 1.50, Nucleated RBC % 0, Differential Comment SCANNED 03/17/22 05:44: C-React Prot Ext Range 171.00 H 03/17/22 05:44: ESR 76 H 03/17/22 05:44: Sodium 135 L, Potassium 2.6 L*, Chloride 97 L, Carbon Dioxide 26.0, Anion Gap 12, BUN 10, Creatinine 1.05 H, Estim Creat Clear Calc 69.32, Est GFR (MDRD) Af Amer 71, Est GFR (MDRD) Non-Af 59 L, BUN/Creatinine Ratio 9.5 L, Glucose 435 H, Calcium 8.9, Total Bilirubin 0.60, AST 15, ALT 16, Alkaline Phosphatase 86, Total Protein 6.5, Albumin 2.5 L, Globulin 4.0, Albumin/Globulin Ratio 0.6 L, Lipase 46 L Radiology Impression Chest Ultrasound 03/16/22 10:06 IMPRESSION: Small volume pleural effusions. Electronically Signed: Tian Pepper MD ([place]) at 12:43 EDT Reading Location ID and State: / [place] , Service support , Abdomen Ultrasound 03/16/22 11:48 IMPRESSION: No detected ascites. Electronically Signed: Tian Pepper MD ([place]) at 15:45 EDT , Charges/Coding Visit Charges Inpatient E&M: 45909 Init Hosp L3
[2022-03-17] MEDS: Insulin Glargine-YFGN 100 UNIT/ML Pen 25 UNIT SC (08:46)
[2022-03-17] MEDS: Furosemide 40 MG/4 ML Vial IV ×2 (08:47→17:40)
[2022-03-17 08:51] LABS: Magnesium 1.8 mg/dL (1.6-2.6)
[2022-03-17] MEDS: Metoprolol Tartrate 25 MG Tablet PO ×2 (08:52→20:57)
[2022-03-17] MEDS: Docusate Sodium 100 MG Capsule 200 MG PO ×2 (08:52→20:56)
[2022-03-17] MEDS: Potassium Chloride 20mEq/100mL 20 MEQ/100 ML IV.SOLN. 100 MEQ IV BOLUS ×5 (09:24→20:55)
--- NOTE | 2022-03-17 10:12 | CASEMGMT ---
Insurance review for hospitals In-network with [facility]/ [facility] Choice Plus Insurance if transfer is recommended is as follows: [facility], [place], CC, [facility], [facility], [facility], [facility] ([facility]), [place], and . Randa BSN RN CM
[2022-03-17] MEDS: proCHLORPERazine 10 MG/2 ML Vial 5 MG IV ×2 (10:55→21:05)
[2022-03-17 12:35] LABS: Bedside Glucose 347 mg/dL (74-106)
[2022-03-17] MEDS: Ondansetron 4 MG/2 ML Vial IV (13:29)
[2022-03-17 15:11] LABS: Anion Gap 8 (5-15); BUN 7 mg/dL (7-18); BUN/Creat Ratio 7.6 RATIO (10-20); Calcium,Total 9.2 mg/dL (8.5-10.1); Chloride 95 mmol/L (98-107); Creatinine, Serum 0.93 mg/dL (0.55-1.02); EST Glomerular Filtration Rate 68 mL/min (>60); Est Glom Filt Rate - Afr Amer 82 mL/min (>60); Estimated Creatinine Clearance 78.26 ml/min; Glucose 307 mg/dL (74-106); Potassium 2.9 mmol/L (3.5-5.1); Sodium Level 135 mmol/L (136-145)
[2022-03-17] MEDS: TPN - Clinimix E 8%-14% Soln 2,000 ML with Multivitamins 10 ML, Trace Elements 1 ML, Fo... 42 ML IV (16:08)
[2022-03-17] MEDS: Ensure Clear 120 ML Liquid PO (16:17)
[2022-03-17 17:51] LABS: Bedside Glucose 343 mg/dL (74-106)
[2022-03-17] MEDS: traZODone 100 MG Tablet 200 MG PO (20:56)
[2022-03-17] MEDS: Insulin Glargine-YFGN 100 UNIT/ML Pen 40 UNIT SC (21:04)
[2022-03-17] MEDS: 0.9% Saline Lock 10 ML Syringe IV ×2 (21:08→23:06)
[2022-03-17 22:11] LABS: Bedside Glucose 390 mg/dL (74-106)
[2022-03-18] VITALS (11 sets, daily range): BP systolic 126–132; BP diastolic 73–83; PULSE 83–120; RESP 16–18; TEMP 36.7–37.1; O2SAT 87–94
[2022-03-18 00:31] LABS: Bedside Glucose > 500 mg/dL (74-106)
[2022-03-18] MEDS: HYDROmorphone 1 MG/ML Syringe 0.5 MG IV ×4 (00:33→20:11)
[2022-03-18] MEDS: Metoclopramide 10 MG/2 ML Vial 5 MG IV ×4 (00:34→17:59)
[2022-03-18] MEDS: 0.9% Saline Lock 10 ML Syringe IV ×8 (00:34→18:01)
[2022-03-18] MEDS: Insulin Lispro 100 UNIT/ML INSULN.PEN SC ×4 (00:39→18:00)
[2022-03-18 01:06] LABS: Glucose 532 mg/dL (74-106)
[2022-03-18 04:27] LABS: Absolute Lymphocyte Count 1.16 X10^3/uL (0.83-4.51); Absolute Neutrophil Count 6.2 X10^3/uL (2.0-7.7); Basophil# 0.05 X10^3/uL; Basophil% 0.6 % (0-1); Eosinophil# 0.22 X10^3/uL; Eosinophils% 2.6 % (0-5); Hematocrit 28.9 % (37-47); Hemoglobin 9.5 g/dL (12.0-15.0); Lymphocyte # 1.16 X10^3/ul (0.83-4.51); Lymphocyte % 13.9 % (19-41); Mean Corp Hgb Conc 32.9 g/dL (32-36); Mean Corpuscular Hgb 29.1 pg (27.0-32.0); Mean Corpuscular Volume 88.4 fL (81-99); Mean Platelet Vol. 10.2 fl (6.2-12.0); Monocyte# 0.69 X10^3/uL; Monocyte% 8.2 % (0-10); NRBC Flagged by Analyzer 0 % (0-5); Neutrophil # 6.19 X10^3/uL (2.7-7.7); Platelet Count 354 K/mm3 (150-450); RBC Distribution Width CV 13.3 % (11.6-14.6); RBC Distribution Width SD 42.9 fl (35.1-43.9); Red Blood Count 3.27 M/mm3 (4.2-5.4); White Blood Count 8.4 K/mm3 (4.4-11.0)
[2022-03-18 04:47] LABS: Erythrocyte Sedimentation Rate 74 mm/hr (0-30)
[2022-03-18 05:10] LABS: Phosphorus 1.8 mg/dL (2.5-4.9)
[2022-03-18] MEDS: Albumin Human 25% (50 mL) 12.5 GM/50 ML IV.SOLN IV ×3 (05:11→22:02)
[2022-03-18 05:33] LABS: BUN 11 mg/dL (7-18); Creatinine, Serum 0.93 mg/dL (0.55-1.02); Estimated Creatinine Clearance 78.26 ml/min; Glucose 454 mg/dL (74-106)
[2022-03-18 05:34] LABS: ALB/GLOB Ratio 0.7 RATIO (0.9-2.4); AST(SGOT) 9 U/L (15-37); Alanine Aminotransfer ALT/SGPT 16 U/L (13-56); Albumin, Serum 2.8 g/dL (3.2-5.0); Alkaline Phosphatase 79 U/L (45-117); Anion Gap 9 (5-15); BUN/Creat Ratio 11.8 RATIO (10-20); Calcium,Total 8.9 mg/dL (8.5-10.1); Chloride 89 mmol/L (98-107); EST Glomerular Filtration Rate 68 mL/min (>60); Est Glom Filt Rate - Afr Amer 82 mL/min (>60); Globulin 4.1 g/dL (2.2-4.2); Lipase 61 U/L (73-393); Magnesium 1.2 mg/dL (1.6-2.6); Potassium 2.7 mmol/L (3.5-5.1); Protein, Total 6.9 g/dL (6.4-8.2); Sodium Level 133 mmol/L (136-145)
--- NOTE | 2022-03-18 05:39 | PN.HOSP_ITS ---
Subjective Subjective Patient with notable difficulties since TPN initiation 03/17/22 with BS elevations, consistently 400-500 range despite recent increase long-acting insulin. Patient notes that she did have episode of emesis this morning and still having abdominal discomfort although complains primarily in the bilateral lower quadrants. Discussed plan of care which included significant electrolyte supplementation with repeat labs later in the day to assure continued improvement as well as blood sugar alterations to which she is understanding. Discussed further that plan for repeat CT on Saturday and if there was still significant fluid that this would need to be potentially drained per discussion with general surgery and this may require transfer pending discussions with IR. Patient denies fevers, chills, chest pain or dyspnea. Objective Data Objective Data Vital Signs: Vital Signs Temp Pulse Resp BP Pulse Ox 98.4 F 88 16 126/73 H 94 03/18/22 03:10 03/18/22 03:10 03/18/22 03:10 03/18/22 03:10 03/18/22 03:10 Oxygen Flow Rate (L/min) 2 Oxygen Delivery Method Room Air Weight: 241 lb 2.971 oz Body Mass Index (BMI) 34.6 Intake & Output: Intake and Output for Last 24 Hours 03/16/22 03/17/22 03/18/22 23:59 23:59 23:59 Intake Total 3330.0 / 3330.0 1017.33 / 1617.33 905 / 905 Output Total 1500 / 1500 100 / 100 Balance 1830.0 / 1830.0 917.33 / 1517.33 905 / 905 Medical Nutrition Assessment Dietitian: Malnutrition Criteria Met Start: 03/13/22 15:29 Freq: Status: Active Protocol: Document 03/16/22 16:33 AG (Rec: 03/16/22 16:33 AG Desktop) Nutrition Malnutrition Evidence of Malnutrition Exists Yes Malnutrition (severe): Chronic Evidenced By Suboptimal Energy Intake ( Severe),Weight Loss (Severe) Clinical Problem Chronic Disease or Condition Related Malnutrition Etiology severe, chronic malnutrition r /t GI dysfunction Signs/Symptoms as evidenced by estimated PO intake meeting <75% of estimated energy needs >3 months; unintentional wt loss of 38.6#/14% x 5 months Status Active Problem Recommendation Dietitian Recommendations/Changes recommend advance diet as tolerated to regular; will add ensure clear w/ medpass given malnutrition; strongly recommend consider nutrition support if unable to advance diet- consult RDN for further recommendations as indicated. Lab / Micro Data Result Diagrams: 03/18/22 04:21 03/18/22 04:21 Labs: Laboratory Results - last 24 hr 03/17/22 05:42: POC Glucose 394 H 03/17/22 05:44: WBC 8.0, RBC 2.97 L, Hgb 8.7 L, Hct 26.1 L, MCV 87.9, MCH 29.3, MCHC 33.3 D, RDW Std Deviation 43.8, RDW Coeff of Ilene 13.6, Plt Count 398, MPV 10.6, Immature Gran % (Auto) 1.300 H, Neut % (Auto) 70.2 H, Lymph % (Auto) 18.8 L, Major % (Auto) 6.9, Eos % (Auto) 2.5, Baso % (Auto) 0.3, Absolute Neuts (auto) 5.6, Absolute Lymphs (auto) 1.50, Nucleated RBC % 0, Differential Comment SCANNED 03/17/22 05:44: C-React Prot Ext Range 171.00 H 03/17/22 05:44: ESR 76 H 03/17/22 05:44: Sodium 135 L, Potassium 2.6 L*, Chloride 97 L, Carbon Dioxide 26.0, Anion Gap 12, BUN 10, Creatinine 1.05 H, Estim Creat Clear Calc 69.32, Est GFR (MDRD) Af Amer 71, Est GFR (MDRD) Non-Af 59 L, BUN/Creatinine Ratio 9.5 L, Glucose 435 H, Calcium 8.9, Total Bilirubin 0.60, AST 15, ALT 16, Alkaline Phosphatase 86, Total Protein 6.5, Albumin 2.5 L, Globulin 4.0, Albumin/Globulin Ratio 0.6 L, Lipase 46 L 03/17/22 06:32: Magnesium 1.8 03/17/22 12:20: POC Glucose 347 H 03/17/22 14:40: Sodium 135 L, Potassium 2.9 L, Chloride 95 L, Carbon Dioxide 32.0, Anion Gap 8, BUN 7, Creatinine 0.93, Estim Creat Clear Calc 78.26, Est GFR (MDRD) Af Amer 82, Est GFR (MDRD) Non-Af 68, BUN/Creatinine Ratio 7.6 L, Glucose 307 H, Calcium 9.2 03/17/22 17:39: POC Glucose 343 H 03/17/22 21:03: POC Glucose 390 H 03/18/22 00:23: POC Glucose > 500 H* 03/18/22 00:35: Glucose 532 H* 03/18/22 04:21: WBC 8.4, RBC 3.27 L, Hgb 9.5 L, Hct 28.9 L, MCV 88.4, MCH 29.1, MCHC 32.9, RDW Std Deviation 42.9, RDW Coeff of Ilene 13.3, Plt Count 354, MPV 10.2, Immature Gran % (Auto) 0.700, Neut % (Auto) 74.0 H, Lymph % (Auto) 13.9 L, Major % (Auto) 8.2, Eos % (Auto) 2.6, Baso % (Auto) 0.6, Absolute Neuts (auto) 6.2, Absolute Lymphs (auto) 1.16, Nucleated RBC % 0, ESR 74 H 03/18/22 04:21: Sodium 133 L, Potassium 2.7 L*, Chloride 89 L, Carbon Dioxide 35.0 H, Anion Gap 9, BUN 11, Creatinine 0.93, Estim Creat Clear Calc 78.26, Est GFR (MDRD) Af Amer 82, Est GFR (MDRD) Non-Af 68, BUN/Creatinine Ratio 11.8, Glucose 454 H*, Calcium 8.9, Magnesium 1.2 L, Total Bilirubin 0.50, AST 9 L, ALT 16, Alkaline Phosphatase 79, C-React Prot Ext Range 125.00 H, Total Protein 6.9, Albumin 2.8 L, Globulin 4.1, Albumin/Globulin Ratio 0.7 L, Lipase 61 L 03/18/22 04:21: Phosphorus 1.8 L Micro: Microbiology 03/12/22 14:30 Blood Culture (Wb) - Right Forearm Blood Culture - Preliminary No growth in 48 hours. 03/12/22 14:25 Blood Culture (Wb) - Anticubital Right Blood Culture - Preliminary No growth in 48 hours. 03/12/22 14:30 Nasal Secretion SARS-CoV-2 & FLU Antigen (Rapid) - Final Physical Exam Narrative Physical Examination: General: Awake, alert, oriented x 3 and cooperative, seated upright in the PCU bed, fatigued, less ill appearing than yesterday AM. Skin: Pale color, normal turgor, no icterus, no cyanosis, stage ecchymoses likely from the lab draws. HEENT: AT/NC, EOMI, PERRLA, less dry MM. Lungs: Diminished, greater bases, no marked rales, rhonchi or wheezing, appropriate effort. Heart: Regular rate and rhythm; no gallop, rub audible. Abdomen: Soft, lessened epigastric TTP, mild BL LQ discomfort, no marked rebound/guarding, less distended, continued mildly hyperactive bowel sounds. Extremities: No cyanosis, no clubbing, prior BL LE edema improved. Neurological: Patient awake, alert, oriented as noted, cognitive function intact; pupils equally reactive to light and accommodation, cranial nerves II- XII grossly normal, moving all 4 extremities, no focal deficits, strength remains severely globally decreased secondary to acute presentation. Psychiatric: Affect appears fatigued, no acute evidence of depressive or anxiety feelings. Assessment & Plan Assessment/Plan (1) Acute necrosis of pancreas: (2) Pancreatitis: QUALIFIERS: Acute pancreatitis complication: unspecified Chronicity: acute Pancreatitis type: other Qualified Code(s): K85.80 - Other acute pancreatitis without necrosis or infection (3) Pleural effusion: PLAN: The patient is a 51 y/o F w/ PMHx: CKD stage III unclear subtype, Obesity, Chronic normocytic anemia, PAF, HTN, HLD, GERD, Depression and Anxiety, LANA, IDDM with gastroparesis who presents to the [facility] ED on 03/12/22 with history of right upper abdominal pain with history of prior biliary stent placed on 03/01/2022 with difficulty eating postprocedure however pain became more significant and severe on day of presentation. #1. Acute pancreatitis w/ abdominal pain with concern for pancreatic necrosis: CT abdomen and pelvis upon presentation with fluid collection around the pancreas concerning for possible necrosis with at that time CBC with WC 16 with left shift, chest x-ray with no acute cardiopulmonary finding. Patient initiated on IV Zosyn and gastroenterology Dr. Curtis consulted. Patient maintained in the PCU, continued ESR and CRP inflammatory marker trending (03/17/22 CRP 171/ESR 76-->03/18/22 CRP 125/ESR 74-->), continue IV Zosyn as well as IV azithromycin per gastroenterology discretion, repeat CT abdomen pelvis 03/15/2022 with continued fluid collection around the pancreas as well as again incidentally noted small left-sided pleural effusion, patient may require ultimately percutaneous drainage of the pancreatic fluid collection noted on CT imaging. 03/16/2022 abdominal ultrasound unremarkable with no evidence of any ascites patient currently maintained on clear liquids. Patient maintained on IV Protonix. Nutrition consulted and following 03/17/22 TPN initiation. 03/17/22 notably elevated BS since TPN start, will 03/18/22 increase BID long-acting insulin and add scheduled q 6 hour short-acting with additionally overlapping accu checks with ISS. 03/17/2022 General surgery consulted and evaluated patient with recommended TPN start and planned repeat CT assessment 03/19/2022 and potential need for IR intervention at that time pending findings. There is certainly high potential patient may need transferred if unable to perform procedure at [facility] per discussion with General Surgery. #2. Left-sided pleural effusions: Patient with upon presentation CT with small left-sided effusion, follow-up chest imaging continues to demonstrate similar pleural effusion, likely related to patient's acute pancreatitis, typically tend to be mild to moderate in nature and typically left-sided and exudative, given no respiratory compromise per pulmonary medicine thoracentesis deferred, patient initiated on IV Lasix 03/16/2022, d/c after 03/17/22 doses. Continue to monitor and will pulse dose with lasix as needed. #3. IDDM complicated by gastroparesis with significant hyperglycemia: Nutrition consulted and following w03/18/22 TPN initiation. Since TPN start notably increased BS as expected, will increase to 50 u BID long-acting insulin, will add scheduled 10 u q 6 hour short-acting with overlapping accu checks with ISS. May need to increase the long-acting further depending on trending. Currently clear liquid diet but not well tolerated of note. #3. Electrolyte Disturbances: Notable K, Mag, Phos deficiences, 03/18/22 K 2.7, Mag 1.2, Phos 1.8, will supplement and repeat levels in the evening. #5. Chronic normocytic anemia: Admission hemoglobin 10.1, most recently 03/17/2022 hemoglobin 8.7-->03/18/22 Hgb 9.5, continue to trend. #6. PAF: Patient previously transitioned to IV Lopressor, will attempt transition back to oral metoprolol regimen however if ongoing episodes of emesis will need to transition back to IV version. #7. Hypertension: Patient previously transitioned to IV Lopressor, will attempt transition back to oral metoprolol regimen but low threshold to return to IV if unable to tolerate, currently on IV Lasix to assist with pleural effusions secondary to ongoing acute pancreatitis, will discontinue after doses today. #8. Hyperlipidemia: Statin therapy held. #9. Depression and anxiety: From current list patient not on any chronic regimen, encourage continued outpatient follow-up and counseling as needed. #10. Obesity: Weight loss and lifestyle changes encouraged. #11. GERD: We will maintain on IV PPI as noted. #12. LANA: CPAP if amenable. #13. DVT prophylaxis: SCDs, Lovenox. Charges/Coding Visit Charges Inpatient E&M: 04686 Subs Hosp L3
[2022-03-18] MEDS: Potassium Chloride 20mEq/100mL 20 MEQ/100 ML IV.SOLN. 100 MEQ IV BOLUS ×4 (06:04→09:11)
[2022-03-18] MEDS: Magnesium Sulfate 4gm/100mL 4 GM/100 ML IV.SOLN. IV (06:07)
[2022-03-18] MEDS: Insulin Glargine-YFGN 100 UNIT/ML Pen 50 UNIT SC (06:25)
[2022-03-18] MEDS: Insulin Lispro 100 UNIT/ML INSULN.PEN 10 UNIT SC ×3 (06:27→18:00)
[2022-03-18] MEDS: Metoprolol Tartrate 25 MG Tablet PO (06:29)
[2022-03-18] MEDS: Docusate Sodium 100 MG Capsule 200 MG PO (06:29)
[2022-03-18] MEDS: Furosemide 40 MG/4 ML Vial IV (06:29)
--- NOTE | 2022-03-18 06:42 | PCM.PN.SRG ---
Subjective Subjective Patient denies any abdominal pain but still has the nausea states is with palpation or with movement. Objective Data Objective Data Vital Signs: Vital Signs Temp Pulse Resp BP Pulse Ox 98.6 F 83 18 126/78 H 93 03/18/22 06:20 03/18/22 06:29 03/18/22 06:20 03/18/22 06:20 03/18/22 06:20 Oxygen Flow Rate (L/min) 2 Oxygen Delivery Method Nasal Cannula Weight: 240 lb 11.916 oz Body Mass Index (BMI) 34.6 Intake & Output: Intake and Output for Last 24 Hours 03/16/22 03/17/22 03/18/22 23:59 23:59 23:59 Intake Total 3330.0 / 3330.0 1017.33 / 1617.33 1435 / 1435 Output Total 1500 / 1500 100 / 100 Balance 1830.0 / 1830.0 917.33 / 1517.33 1435 / 1435 Medical Nutrition Assessment Dietitian: Malnutrition Criteria Met Start: 03/13/22 15:29 Freq: Status: Active Protocol: Document 03/16/22 16:33 AG (Rec: 03/16/22 16:33 AG Desktop) Nutrition Malnutrition Evidence of Malnutrition Exists Yes Malnutrition (severe): Chronic Evidenced By Suboptimal Energy Intake ( Severe),Weight Loss (Severe) Clinical Problem Chronic Disease or Condition Related Malnutrition Etiology severe, chronic malnutrition r /t GI dysfunction Signs/Symptoms as evidenced by estimated PO intake meeting <75% of estimated energy needs >3 months; unintentional wt loss of 38.6#/14% x 5 months Status Active Problem Recommendation Dietitian Recommendations/Changes recommend advance diet as tolerated to regular; will add ensure clear w/ medpass given malnutrition; strongly recommend consider nutrition support if unable to advance diet- consult RDN for further recommendations as indicated. Lab / Micro Data Result Diagrams: 03/18/22 04:21 03/18/22 04:21 Labs: Laboratory Results - last 24 hr 03/17/22 05:42: POC Glucose 394 H 03/17/22 05:44: WBC 8.0, RBC 2.97 L, Hgb 8.7 L, Hct 26.1 L, MCV 87.9, MCH 29.3, MCHC 33.3 D, RDW Std Deviation 43.8, RDW Coeff of Ilene 13.6, Plt Count 398, MPV 10.6, Immature Gran % (Auto) 1.300 H, Neut % (Auto) 70.2 H, Lymph % (Auto) 18.8 L, [place] % (Auto) 6.9, Eos % (Auto) 2.5, Baso % (Auto) 0.3, Absolute Neuts (auto) 5.6, Absolute Lymphs (auto) 1.50, Nucleated RBC % 0, Differential Comment SCANNED 03/17/22 05:44: C-React Prot Ext Range 171.00 H 03/17/22 05:44: ESR 76 H 03/17/22 05:44: Sodium 135 L, Potassium 2.6 L*, Chloride 97 L, Carbon Dioxide 26.0, Anion Gap 12, BUN 10, Creatinine 1.05 H, Estim Creat Clear Calc 69.32, Est GFR (MDRD) Af Amer 71, Est GFR (MDRD) Non-Af 59 L, BUN/Creatinine Ratio 9.5 L, Glucose 435 H, Calcium 8.9, Total Bilirubin 0.60, AST 15, ALT 16, Alkaline Phosphatase 86, Total Protein 6.5, Albumin 2.5 L, Globulin 4.0, Albumin/Globulin Ratio 0.6 L, Lipase 46 L 03/17/22 06:32: Magnesium 1.8 03/17/22 12:20: POC Glucose 347 H 03/17/22 14:40: Sodium 135 L, Potassium 2.9 L, Chloride 95 L, Carbon Dioxide 32.0, Anion Gap 8, BUN 7, Creatinine 0.93, Estim Creat Clear Calc 78.26, Est GFR (MDRD) Af Amer 82, Est GFR (MDRD) Non-Af 68, BUN/Creatinine Ratio 7.6 L, Glucose 307 H, Calcium 9.2 03/17/22 17:39: POC Glucose 343 H 03/17/22 21:03: POC Glucose 390 H 03/18/22 00:23: POC Glucose > 500 H* 03/18/22 00:35: Glucose 532 H* 03/18/22 04:21: WBC 8.4, RBC 3.27 L, Hgb 9.5 L, Hct 28.9 L, MCV 88.4, MCH 29.1, MCHC 32.9, RDW Std Deviation 42.9, RDW Coeff of Ilene 13.3, Plt Count 354, MPV 10.2, Immature Gran % (Auto) 0.700, Neut % (Auto) 74.0 H, Lymph % (Auto) 13.9 L, [place] % (Auto) 8.2, Eos % (Auto) 2.6, Baso % (Auto) 0.6, Absolute Neuts (auto) 6.2, Absolute Lymphs (auto) 1.16, Nucleated RBC % 0, ESR 74 H 03/18/22 04:21: Sodium 133 L, Potassium 2.7 L*, Chloride 89 L, Carbon Dioxide 35.0 H, Anion Gap 9, BUN 11, Creatinine 0.93, Estim Creat Clear Calc 78.26, Est GFR (MDRD) Af Amer 82, Est GFR (MDRD) Non-Af 68, BUN/Creatinine Ratio 11.8, Glucose 454 H*, Calcium 8.9, Magnesium 1.2 L, Total Bilirubin 0.50, AST 9 L, ALT 16, Alkaline Phosphatase 79, C-React Prot Ext Range 125.00 H, Total Protein 6.9, Albumin 2.8 L, Globulin 4.1, Albumin/Globulin Ratio 0.7 L, Lipase 61 L 03/18/22 04:21: Phosphorus 1.8 L Micro: Microbiology 03/12/22 14:30 Blood Culture (Wb) - Right Forearm Blood Culture - Preliminary No growth in 48 hours. 03/12/22 14:25 Blood Culture (Wb) - Anticubital Right Blood Culture - Preliminary No growth in 48 hours. 03/12/22 14:30 Nasal Secretion SARS-CoV-2 & FLU Antigen (Rapid) - Final Physical Exam Const alert, oriented x3 and no apparent distress HEENT normocephalic and head/scalp atraumatic Resp normal respiratory effort Cardio regular rate GI soft to palpation; Negative for non-distended GI Narrative: Denies tenderness did states she gets nauseated with palpating the left side of the abdomen Palpation: Negative for guarding Extremity no clubbing, cyanosis or edema Extremity Narrative: Upper extremity PICC line in place Skin no rashes or lesions noted Neuro CN's II-XII intact bilaterally Psych mental status grossly normal Assessment & Plan Assessment/Plan (1) Acute necrosis of pancreas: (2) Diabetes: QUALIFIERS: Diabetes mellitus type: type 2 Diabetes mellitus senior living insulin use: with roasterman use Diabetes mellitus complication status: with hyperglycemia Qualified Code(s): E11.65 - Type 2 diabetes mellitus with hyperglycemia; 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 States she has nausea?vomiting with palpation of her abdomen as well as movement. Patient did states she had a small bowel movement. Patient is currently on TPN. Plan for a repeat CT abdomen and pelvis with IV contrast tomorrow morning. Hypokalemia and hypomagnesemia-replace per primary Hyperglycemia likely additional due to added TPN as well. Sally Madrid M.D. Pager: [phone] [facility] [address] [place] [address], [facility], [address] [place] [address] Office: [phone] Charges/Coding Visit Charges Inpatient E&M: 57813 Subs Hosp L2
[2022-03-18 06:45] LABS: Bedside Glucose 428 mg/dL (74-106)
[2022-03-18] MEDS: Ondansetron 4 MG/2 ML Vial IV ×2 (08:13→20:11)
[2022-03-18] MEDS: proCHLORPERazine 10 MG/2 ML Vial 5 MG IV ×2 (09:11→16:10)
[2022-03-18 12:10] LABS: Bedside Glucose 419 mg/dL (74-106)
[2022-03-18 12:48] LABS: Triglycerides 154 mg/dL
[2022-03-18] MEDS: TPN - Clinimix E 8%-14% Soln 2,000 ML with Multivitamins 10 ML, Trace Elements 1 ML, Fo... 42 ML IV (16:00)
[2022-03-18] MEDS: Ensure Clear 120 ML Liquid PO (18:01)
[2022-03-18 18:11] LABS: Bedside Glucose 384 mg/dL (74-106)
[2022-03-18 20:59] LABS: Anion Gap 9 (5-15); BUN 14 mg/dL (7-18); BUN/Creat Ratio 12.6 RATIO (10-20); Chloride 95 mmol/L (98-107); Creatinine, Serum 1.11 mg/dL (0.55-1.02); EST Glomerular Filtration Rate 55 mL/min (>60); Est Glom Filt Rate - Afr Amer 67 mL/min (>60); Estimated Creatinine Clearance 65.57 ml/min; Glucose 309 mg/dL (74-106); Magnesium 2.1 mg/dL (1.6-2.6); Phosphorus 2.7 mg/dL (2.5-4.9); Potassium 2.8 mmol/L (3.5-5.1); Sodium Level 136 mmol/L (136-145)
[2022-03-19] VITALS (18 sets, daily range): BP systolic 102–149; BP diastolic 58–81; PULSE 69–123; RESP 14–20; TEMP 36.2–37.2; O2SAT 92–99
[2022-03-19] MEDS: traZODone 100 MG Tablet 200 MG PO (00:02)
[2022-03-19] MEDS: Metoprolol Tartrate 25 MG Tablet PO ×2 (00:03→09:57)
[2022-03-19] MEDS: Docusate Sodium 100 MG Capsule 200 MG PO (00:03)
[2022-03-19] MEDS: Metoclopramide 10 MG/2 ML Vial 5 MG IV ×5 (00:06→23:25)
[2022-03-19] MEDS: proCHLORPERazine 10 MG/2 ML Vial 5 MG IV ×2 (00:07→23:33)
[2022-03-19] MEDS: Insulin Glargine-YFGN 100 UNIT/ML Pen 50 UNIT SC ×2 (00:17→10:03)
[2022-03-19] MEDS: Insulin Lispro 100 UNIT/ML INSULN.PEN SC ×4 (00:17→18:01)
[2022-03-19] MEDS: Insulin Lispro 100 UNIT/ML INSULN.PEN 10 UNIT SC (00:38)
[2022-03-19 01:21] LABS: Bedside Glucose 332 mg/dL (74-106)
[2022-03-19] MEDS: HYDROmorphone 1 MG/ML Syringe 0.5 MG IV ×4 (04:33→21:46)
[2022-03-19] MEDS: Albumin Human 25% (50 mL) 12.5 GM/50 ML IV.SOLN IV ×3 (04:34→23:13)
[2022-03-19 05:33] LABS: Erythrocyte Sedimentation Rate 77 mm/hr (0-30)
[2022-03-19 05:34] LABS: Absolute Lymphocyte Count 0.74 X10^3/uL (0.83-4.51); Absolute Neutrophil Count 17.3 X10^3/uL (2.0-7.7); Basophil# 0.07 X10^3/uL; Basophil% 0.4 % (0-1); Eosinophil# 0.01 X10^3/uL; Eosinophils% 0.1 % (0-5); Hematocrit 28.7 % (37-47); Hemoglobin 9.3 g/dL (12.0-15.0); Lymphocyte # 0.74 X10^3/ul (0.83-4.51); Lymphocyte % 3.9 % (19-41); Mean Corp Hgb Conc 32.4 g/dL (32-36); Mean Corpuscular Hgb 28.7 pg (27.0-32.0); Mean Corpuscular Volume 88.6 fL (81-99); Mean Platelet Vol. 10.8 fl (6.2-12.0); Monocyte# 0.62 X10^3/uL; Monocyte% 3.3 % (0-10); NRBC Flagged by Analyzer 0.2 % (0-5); Neutrophil # 17.29 X10^3/uL (2.7-7.7); Neutrophil % 91.5 % (47-70); POSITIVE MORPHOLOGY YES; Platelet Count 285 K/mm3 (150-450); RBC Distribution Width CV 13.4 % (11.6-14.6); RBC Distribution Width SD 43.4 fl (35.1-43.9); Red Blood Count 3.24 M/mm3 (4.2-5.4); White Blood Count 18.9 K/mm3 (4.4-11.0)
[2022-03-19 05:35] LABS: Differential Indicated SCAN CRITERIA MET
[2022-03-19 06:01] LABS: ALB/GLOB Ratio 0.7 RATIO (0.9-2.4); AST(SGOT) 36 U/L (15-37); Alanine Aminotransfer ALT/SGPT 22 U/L (13-56); Albumin, Serum 2.8 g/dL (3.2-5.0); Alkaline Phosphatase 302 U/L (45-117); Anion Gap 9 (5-15); BUN 21 mg/dL (7-18); BUN/Creat Ratio 21.1 RATIO (10-20); Calcium,Total 8.7 mg/dL (8.5-10.1); Chloride 91 mmol/L (98-107); Creatinine, Serum 0.99 mg/dL (0.55-1.02); EST Glomerular Filtration Rate 63 mL/min (>60); Est Glom Filt Rate - Afr Amer 76 mL/min (>60); Estimated Creatinine Clearance 73.52 ml/min; Globulin 3.8 g/dL (2.2-4.2); Glucose 429 mg/dL (74-106); Lipase 53 U/L (73-393); Magnesium 1.9 mg/dL (1.6-2.6); Phosphorus 2.7 mg/dL (2.5-4.9); Potassium 3.2 mmol/L (3.5-5.1); Protein, Total 6.6 g/dL (6.4-8.2); Sodium Level 132 mmol/L (136-145)
[2022-03-19 07:16] LABS: Bedside Glucose > 500 mg/dL (74-106)
[2022-03-19 07:16] LABS: Bedside Glucose > 500 mg/dL (74-106)
[2022-03-19 07:16] LABS: Bedside Glucose 483 mg/dL (74-106)
[2022-03-19 07:16] LABS: Bedside Glucose > 500 mg/dL (74-106)
--- NOTE | 2022-03-19 08:37 | PN.SURG_ITS ---
Subjective Subjective Patient has CT abdomen pelvis scheduled for around this morning. Patient denies abdominal pain still but does still admit to having some nausea and vomiting. White blood count is up to 18. Patient is on TPN. Objective Data Objective Data Vital Signs: Vital Signs Temp Pulse Resp BP Pulse Ox 97.7 F L 80 14 127/78 H 93 03/19/22 06:00 03/19/22 06:00 03/19/22 06:00 03/19/22 06:00 03/19/22 06:00 Oxygen Flow Rate (L/min) 2 Oxygen Delivery Method Room Air Weight: 243 lb 6.245 oz Body Mass Index (BMI) 34.6 Intake & Output: Intake and Output for Last 24 Hours 03/17/22 03/18/22 03/19/22 23:59 23:59 23:59 Intake Total 1017.33 / 1617.33 3919.07 / 3919.07 825 / 825 Output Total 100 / 100 Balance 917.33 / 1517.33 3919.07 / 3919.07 825 / 825 Medical Nutrition Assessment Dietitian: Malnutrition Criteria Met Start: 03/13/22 15:29 Freq: Status: Active Protocol: Document 03/18/22 11:44 RMA (Rec: 03/18/22 11:44 RMA [id number]) Nutrition Malnutrition Evidence of Malnutrition Exists Yes Malnutrition (severe): Chronic Evidenced By Suboptimal Energy Intake ( Severe),Weight Loss (Severe) Clinical Problem Chronic Disease or Condition Related Malnutrition Etiology severe, chronic malnutrition r /t GI dysfunction Signs/Symptoms as evidenced by estimated PO intake meeting <75% of estimated energy needs >3 months; unintentional wt loss of 38.6#/14% x 5 months Status Active Problem Recommendation Dietitian Recommendations/Changes 1) Day #2 of TPN ordered: will continue order for 1L 8%AA/14 % dextrose Clinimix with electrolytes and MVI, folic acid, and trace minerals at 42mL/hour to provide 798 calories, 140 g dextrose, and 80 g protein. Discussed w/ Dr. Blanco- NO insulin in TPN; physician ordered short acting insulin; will monitor glucose as TPN continues and increase parenteral nutrition support as tolerated. 2) Continue daily wts, close monitoring of labs per protocol; triglyceride check ordered today. 3) Continue clear liquids, ensure clear 120mL 4x/day w/ medpass as tolerated; advance diet as tolerated to regular/ low fat. Lab / Micro Data Result Diagrams: 03/19/22 04:40 03/19/22 04:40 Labs: Laboratory Results - last 24 hr 03/16/22 18:06: POC Glucose > 500 H* 03/16/22 18:07: POC Glucose > 500 H* 03/16/22 22:40: POC Glucose > 500 H* 03/16/22 22:41: POC Glucose 483 H* 03/18/22 04:21: Triglycerides 154 03/18/22 11:52: POC Glucose 419 H 03/18/22 17:59: POC Glucose 384 H 03/18/22 20:25: Sodium 136, Potassium 2.8 L, Chloride 95 L, Carbon Dioxide 32.0, Anion Gap 9, BUN 14, Creatinine 1.11 H, Estim Creat Clear Calc 65.57, Est GFR (MDRD) Af Amer 67, Est GFR (MDRD) Non-Af 55 L, BUN/Creatinine Ratio 12.6, Glucose 309 H, Calcium 9.0, Phosphorus 2.7, Magnesium 2.1 03/19/22 00:16: POC Glucose 332 H 03/19/22 04:40: WBC 18.9 H, RBC 3.24 L, Hgb 9.3 L, Hct 28.7 L, MCV 88.6, MCH 28.7, MCHC 32.4, RDW Std Deviation 43.4, RDW Coeff of Ilene 13.4, Plt Count 285, MPV 10.8, Immature Gran % (Auto) 0.800, Neut % (Auto) 91.5 H, Lymph % (Auto) 3.9 L, [place] % (Auto) 3.3, Eos % (Auto) 0.1, Baso % (Auto) 0.4, Absolute Neuts (auto) 17.3 H, Absolute Lymphs (auto) 0.74 L, Nucleated RBC % 0.2, ESR 77 H 03/19/22 04:40: Sodium 132 L, Potassium 3.2 L, Chloride 91 L, Carbon Dioxide 32.0, Anion Gap 9, BUN 21 H, Creatinine 0.99, Estim Creat Clear Calc 73.52, Est GFR (MDRD) Af Amer 76, Est GFR (MDRD) Non-Af 63, BUN/Creatinine Ratio 21.1 H, Glucose 429 H, Calcium 8.7, Magnesium 1.9, Total Bilirubin 0.50, AST 36, ALT 22, Alkaline Phosphatase 302 H, C-React Prot Ext Range 123.00 H, Total Protein 6.6, Albumin 2.8 L, Globulin 3.8, Albumin/Globulin Ratio 0.7 L, Lipase 53 L 03/19/22 04:40: Phosphorus 2.7 Micro: Microbiology 03/16/22 01:00 Blood Culture (Wb) - Pic Blood Culture - Preliminary No growth in 48 hours. 03/16/22 00:40 Blood Culture (Wb) - Right Forearm Blood Culture - Preliminary No growth in 48 hours. 03/12/22 14:30 Blood Culture (Wb) - Right Forearm Blood Culture - Final No growth in 5 days. 03/12/22 14:25 Blood Culture (Wb) - Anticubital Right Blood Culture - Final No growth in 5 days. 03/12/22 14:30 Nasal Secretion SARS-CoV-2 & FLU Antigen (Rapid) - Final Physical Exam Const alert, oriented x3 and no apparent distress HEENT normocephalic and head/scalp atraumatic Resp normal respiratory effort Cardio regular rate GI soft to palpation; Negative for non-distended GI Narrative: Denies any tenderness or nausea with palpation of the left abdomen Palpation: Negative for guarding Extremity no clubbing, cyanosis or edema Extremity Narrative: Upper extremity PICC line in place Skin no rashes or lesions noted Neuro CN's II-XII intact bilaterally Psych mental status grossly normal Assessment & Plan Assessment/Plan (1) Acute necrosis of pancreas: (2) Diabetes: QUALIFIERS: Diabetes mellitus type: type 2 Diabetes mellitus prison insulin use: with roasterman use Diabetes mellitus complication status: with hyperglycemia Qualified Code(s): E11.65 - Type 2 diabetes mellitus with hyperglycemia; 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 Patient also denies any nausea with palpating the left side of her abdomen as well which is an improvement from yesterday. Patient is currently on TPN. CT abdomen pelvis with IV contrast planned for this morning. Hypokalemia -replace per primary Hyperglycemia likely additional due to added TPN as well. Sally Madrid M.D. Pager: [phone] [facility] [address] [place] [address], [facility], [address] [place] [address] Office: [phone] Charges/Coding Visit Charges Inpatient E&M: 35280 Subs Hosp L2
--- NOTE | 2022-03-19 09:00 | CT_ITS ---
STUDY: CT ABDOMEN AND PELVIS WITH CONTRAST REASON FOR EXAM: Female, 51 years old. Pancreatitis -- PERFORM THIS WHEN IT HAS BEEN ORDERED 03/19 9 AM RADIATION DOSAGE (If Supplied By Facility): CTDIvol = ( 18.44 ) mGy, DLP = ( 1355.66 ) mGycm TECHNIQUE: Transaxial images were obtained from the dome of the diaphragm to the symphysis pubis without oral contrast. IV 100mL Isovue-370 was administered. Sagittal and coronal images were reconstructed. Individualized dose optimization techniques were used for this CT. COMPARISON: 03/15/2022 FINDINGS: The visualized lung bases are unremarkable. The visualized portions of the heart are within normal limits. Normal liver. The gallbladder is contracted. Biliary stent with pneumobilia. Normal spleen. There is no change in the 8 x 10 cm fluid collection with gas contiguous with the anterior margin of the tail of pancreas extending between the stomach and spleen consistent with phlegmon/abscess. Normal bilateral adrenal glands. Normal right kidney. Normal left kidney. Normal visualized stomach. Normal small intestine. Normal colon. The appendix is visualized and appears normal. Normal abdominal aorta. Normal inferior vena cava. Normal retroperitoneum. Normal urinary bladder. Normal abdominal wall. Normal osseous structures. CT/Abdomen/Pelvis W IV Cont ONLY IMPRESSION: No change in pancreatitis with large lesser sac phlegmon/abscess. Electronically Signed: Aníbal Chung MD at 9:57 EDT ,
[2022-03-19 10:11] LABS: Bedside Glucose 473 mg/dL (74-106)
[2022-03-19 10:11] LABS: Bedside Glucose 490 mg/dL (74-106)
--- NOTE | 2022-03-19 11:24 | OP.CCLET_ITS ---
07/27/2022 Migue Silve[facility] Do Re : Upper GI endoscopy procedure for Janneth Sherwood Dear Jordana This procedure was performed on Saturday, March 19, 2022. My impressions and recommendations are as follows: Impressions : - Normal esophagus. - Normal stomach. - Duodenal foreign body. Removal was successful. - Duodenal erosions without bleeding. - Feeding tube placement was successfully performed. Recommendations : - Discharge patient to home. - Resume previous diet. - Continue present medications. - Await pathology results. My findings are described in the full procedure note, which is enclosed. If I can be of further assistance, please feel free to contact me at . Sincerely, Juan Curtis DO 03/19/2022 11:23:43 AM This report has been signed electronically.
--- NOTE | 2022-03-19 11:24 | OP.EGD_ITS ---
Patient Name: Janneth Sherwood Procedure Date: 03/19/2022 10:26 AM Date of : 1970 Age: 51 Procedure: Upper GI endoscopy Indications: Epigastric abdominal pain, Abnormal CT of the GI tract, Pancreatitis, Persistent vomiting Providers: Juan Curtis DO Medicines: Monitored Anesthesia Care Patient Profile: This is a 51 year old female. Refer to note in patient chart for documentation of history and physical. Complications: No immediate complications. Procedure: Pre-Anesthesia Assessment: - Prior to the procedure, a History and Physical was performed, and patient medications and allergies were reviewed. The risks and benefits of the procedure and the sedation options and risks were discussed with the patient. All questions were answered and informed consent was obtained. Patient identification and proposed procedure were verified by the physician in the pre-procedure area. Mental Status Examination: alert and oriented. Airway Examination: normal oropharyngeal airway and neck mobility. Respiratory Examination: clear to auscultation. CV Examination: normal. Prophylactic Antibiotics: The patient does not require prophylactic antibiotics. Prior Anticoagulants: The patient has taken no previous anticoagulant or antiplatelet agents. ASA Grade Assessment: II - A patient with mild systemic disease. After reviewing the risks and benefits, the patient was deemed in satisfactory condition to undergo the procedure. The anesthesia plan was to use moderate sedation / analgesia (conscious sedation). Immediately prior to administration of medications, the patient was re-assessed for adequacy to receive sedatives. The heart rate, respiratory rate, oxygen saturations, blood pressure, adequacy of pulmonary ventilation, and response to care were monitored throughout the procedure. The physical status of the patient was re-assessed after the procedure. After obtaining informed consent, the endoscope was passed under direct vision. Throughout the procedure, the patient's blood pressure, pulse, and oxygen saturations were monitored continuously. The gastroscope was introduced through the mouth, and advanced to the second part of duodenum. The upper GI endoscopy was accomplished without difficulty. The patient tolerated the procedure well. Scope In: 10:37:10 AM Scope Out: 11:06:58 AM Total Procedure Duration Time 0 hours 29 minutes 48 seconds Findings: The examined esophagus was normal. The entire examined stomach was normal. A foreign body was found in the second portion of the duodenum. Removal of the stent was accomplished with a snare. Verification of patient identification for the specimen was done. Estimated blood loss was minimal. A few localized erosions without bleeding were found in the duodenal bulb. A 12 Fr nasogastric tube was placed through the nares into the esophagus. Under endoscopic guidance, the tube was advanced into the duodenum. Placement was confirmed by scope visualization. Impression: - Normal esophagus. - Normal stomach. - Duodenal foreign body. Removal was successful. - Duodenal erosions without bleeding. - Feeding tube placement was successfully performed. Recommendation: - Discharge patient to home. - Resume previous diet. - Continue present medications. - Await pathology results. Procedure Code(s): --- Professional --- 72277, Esophagogastroduodenoscopy, flexible, transoral; with removal of foreign body(s) 50465, Esophagogastroduodenoscopy, flexible, transoral; with insertion of intraluminal tube or catheter CPT copyright 2017 [employer]. All rights reserved. The codes documented in this report are preliminary and upon national sales review may be revised to meet current compliance requirements. Juan Curtis DO 03/19/2022 11:23:43 AM This report has been signed electronically. Number of Addenda: 1 Note Initiated On: 03/19/2022 10:26 AM Addendum Number: 1 Addendum Date: 07/27/2022 6:12:32 AM MAC was used as sedation for this procedure. Juan Curtis DO 07/27/2022 6:12:36 AM This report has been signed electronically.
[2022-03-19] MEDS: Potassium Chloride 20mEq/100mL 20 MEQ/100 ML IV.SOLN. 100 MEQ IV BOLUS ×2 (12:38→13:58)
[2022-03-19 13:16] LABS: Bedside Glucose 405 mg/dL (74-106)
--- NOTE | 2022-03-19 16:29 | PCM.PN.HOSP ---
Subjective Subjective Patient reports her abdominal pain at rest seems to be improved. She remains on TPN and her blood sugars remain markedly elevated. Her white count is up higher today at 18.9. No significant issues overnight. She does not want to be transferred however we have discussed that we may need to transfer her to get her the care she needs especially if the drain needs to be placed by interventional radiology into the phlegmon in her pancreas. She reluctantly is agreeable to being transferred if that needs to happen. Objective Data Objective Data Vital Signs: Vital Signs Temp Pulse Resp BP Pulse Ox 98.1 F 82 16 137/81 H 98 03/19/22 12:16 03/19/22 12:16 03/19/22 12:16 03/19/22 12:16 03/19/22 12:16 Oxygen Flow Rate (L/min) 2 Oxygen Delivery Method Room Air Weight: 110.4 kg Body Mass Index (BMI) 34.6 Intake & Output: Intake and Output for Last 24 Hours 03/17/22 03/18/22 03/19/22 23:59 23:59 23:59 Intake Total 1017.33 / 1617.33 3919.07 / 3919.07 1946.2 / 1946.2 Output Total 100 / 100 Balance 917.33 / 1517.33 3919.07 / 3919.07 1946.2 / 1946.2 Medical Nutrition Assessment Dietitian: Malnutrition Criteria Met Start: 03/13/22 15:29 Freq: Status: Active Protocol: Document 03/19/22 15:30 AG (Rec: 03/19/22 15:31 AG Desktop) Nutrition Malnutrition Evidence of Malnutrition Exists Yes Malnutrition (severe): Chronic Evidenced By Suboptimal Energy Intake ( Severe),Weight Loss (Severe) Clinical Problem Chronic Disease or Condition Related Malnutrition Etiology severe, chronic malnutrition r /t GI dysfunction Signs/Symptoms as evidenced by estimated PO intake meeting <75% of estimated energy needs >3 months; unintentional wt loss of 38.6#/14% x 5 months Status Active Problem Recommendation Dietitian Recommendations/Changes 1) Continue clear liquids as tolerated w/ ensure clear 120mL 4x/day w/ medpass; advance diet as tolerated to regular/low fat. 2) NGT for enteral nutrition support: Vital AF 1.2 at goal rate of 60mL/hour w/ 100mL H2O flush every 4 hours to provide 1728 calories, 108 g protein, 1767mL total fluid/ day. Would start at 15mL/hour and increase by 10mL/hour every 8 hours as tolerated until goal rate is achieved. 3) Continue daily wts, close monitoring of electrolytes, blood glucose. 4) Consider TPN if above interventions fails. Lab / Micro Data Result Diagrams: 03/19/22 04:40 03/19/22 04:40 Labs: Laboratory Results - last 24 hr 03/16/22 18:06: POC Glucose > 500 H* 03/16/22 18:07: POC Glucose > 500 H* 03/16/22 22:40: POC Glucose > 500 H* 03/16/22 22:41: POC Glucose 483 H* 03/18/22 17:59: POC Glucose 384 H 03/18/22 20:25: Sodium 136, Potassium 2.8 L, Chloride 95 L, Carbon Dioxide 32.0, Anion Gap 9, BUN 14, Creatinine 1.11 H, Estim Creat Clear Calc 65.57, Est GFR (MDRD) Af Amer 67, Est GFR (MDRD) Non-Af 55 L, BUN/Creatinine Ratio 12.6, Glucose 309 H, Calcium 9.0, Phosphorus 2.7, Magnesium 2.1 03/19/22 00:16: POC Glucose 332 H 03/19/22 04:40: WBC 18.9 H, RBC 3.24 L, Hgb 9.3 L, Hct 28.7 L, MCV 88.6, MCH 28.7, MCHC 32.4, RDW Std Deviation 43.4, RDW Coeff of Ilene 13.4, Plt Count 285, MPV 10.8, Immature Gran % (Auto) 0.800, Neut % (Auto) 91.5 H, Lymph % (Auto) 3.9 L, [place] % (Auto) 3.3, Eos % (Auto) 0.1, Baso % (Auto) 0.4, Absolute Neuts (auto) 17.3 H, Absolute Lymphs (auto) 0.74 L, Nucleated RBC % 0.2, ESR 77 H 03/19/22 04:40: Sodium 132 L, Potassium 3.2 L, Chloride 91 L, Carbon Dioxide 32.0, Anion Gap 9, BUN 21 H, Creatinine 0.99, Estim Creat Clear Calc 73.52, Est GFR (MDRD) Af Amer 76, Est GFR (MDRD) Non-Af 63, BUN/Creatinine Ratio 21.1 H, Glucose 429 H, Calcium 8.7, Magnesium 1.9, Total Bilirubin 0.50, AST 36, ALT 22, Alkaline Phosphatase 302 H, C-React Prot Ext Range 123.00 H, Total Protein 6.6, Albumin 2.8 L, Globulin 3.8, Albumin/Globulin Ratio 0.7 L, Lipase 53 L 03/19/22 04:40: Phosphorus 2.7 03/19/22 08:43: POC Glucose 490 H* 03/19/22 08:46: POC Glucose 473 H* 03/19/22 12:43: POC Glucose 405 H Micro: Microbiology 03/16/22 01:00 Blood Culture (Wb) - Pic Blood Culture - Preliminary No growth in 48 hours. 03/16/22 00:40 Blood Culture (Wb) - Right Forearm Blood Culture - Preliminary No growth in 48 hours. 03/12/22 14:30 Blood Culture (Wb) - Right Forearm Blood Culture - Final No growth in 5 days. 03/12/22 14:25 Blood Culture (Wb) - Anticubital Right Blood Culture - Final No growth in 5 days. 03/12/22 14:30 Nasal Secretion SARS-CoV-2 & FLU Antigen (Rapid) - Final Radiography Diagnostic Testing: Radiology Impression Abdomen/Pelvis CT 03/19/22 09:00 IMPRESSION: No change in pancreatitis with large lesser sac phlegmon/abscess. Electronically Signed: Aníbal Chung MD at 9:57 EDT , Physical Exam Const Constitutional Narrative: Obese, middle-aged white female sitting up in bed, appears much older than stated age, appears comfortable and nontoxic, nursing at bedside Exam Limitations: no limitations Nutritional Appearance: obese HEENT head/scalp atraumatic and moist oral mucous membranes HEENT Narrative: Mallampati 2-3, no thrush present Head and Scalp: normocephalic Eyes PERRL and EOMs intact bilaterally; Negative for conjunctivae normal Eyes Narrative: Mildly pale conjunctiva bilaterally, no scleral icterus Neck no lymphadenopathy, supple and no JVD Neck Narrative: Trachea midline, no thyroid enlargement Resp normal respiratory effort, no retractions, no use of accessory muscles and clear to auscultation bilaterally Resp Narrative: Diminished at bases bilaterally but otherwise clear Auscultation: Negative for crackles, rales, rhonchi or wheezes Cardio regular rate, regular rhythm, S1 normal heart sound, S2 normal heart sound, no murmurs, no rub, no gallops, no clicks and no JVD GI normal to inspection, nondistended, normoactive bowel sounds, soft to palpation and non-distended GI Narrative: Tenderness in the epigastric and left upper quadrant during palpation Palpation: tender Extremity no clubbing, cyanosis or edema Peripheral Pulses: Yes pulses 2+ throughout Skin no rashes or lesions noted, no wounds, skin turgor normal, no jaundice, no petechiae and no mottling Skin Narrative: PICC right upper extremity-clean and dry with intact dressing, scattered ecchymosis from phlebotomy and PICC placement, skin is slightly pale Neuro oriented x3, CN's II-XII intact bilaterally, moves all extremities and no focal motor deficits Sensorium / Orientation: awake and alert Speech: speech normal Psych affect normal Psych Narrative: Anxious but appropriate Assessment & Plan Assessment/Plan (1) Acute necrosis of pancreas: (2) Phlegmon of pancreas: (3) Pancreatitis: QUALIFIERS: Acute pancreatitis complication: unspecified Chronicity: acute Pancreatitis type: other Qualified Code(s): K85.80 - Other acute pancreatitis without necrosis or infection (4) Diabetes: QUALIFIERS: Diabetes mellitus complication status: with hyperglycemia Diabetes mellitus director long term care insulin use: with director long term care use Diabetes mellitus type: type 2 Qualified Code(s): E11.65 - Type 2 diabetes mellitus with hyperglycemia; Z79.4 - director long term care (current) use of insulin (5) Leukocytosis: (6) Hypokalemia: PLAN: Acute pancreatitis with phlegmon/abscess and concern for necrosis -Continue n.p.o. status -Postpyloric Dobbhoff was placed for enteral feeds -Discontinue TPN today -Patient needs IR drain placed into the phlegmon noted on CT repeat today -Patient has been accepted for transfer at [facility] and we are currently awaiting a bed--> Dr. Guy -Continue pain management as ordered -Continue current IV antibiotics -White count has trended up--> concern for worsening necrosis -Sed rate and CRP remain markedly elevated DM-2 -Sugars have been significantly difficult to control -Suspect is related to TPN and acute pancreatitis -Baseline patient takes 50 units of Lantus at night--> currently on 50 units twice daily -We will discontinue twice daily Lantus as we are discontinuing TPN -Was pyloric enteral feeds to start this evening after TPN is discontinued -We will hold scheduled log for now and reassess tomorrow -Continue high-dose sliding scale -Continue Accu-Cheks every 6 -Reassess tomorrow Hypokalemia -IV potassium replacement ordered -Repeat lab in a.m. -Check mag level in a.m. Hyponatremia/hypochloremia -Likely related to TPN -TPN has been discontinued and will repeat in a.m. -Monitor for free water needs especially with hyperglycemia Pleural effusions -Resolved on CAT scan from this morning Chronic normocytic anemia -Hemoglobin is stable overall -Continue to monitor PAF -Continue Lopressor Hypertension -Continue oral regimen as able Hyperlipidemia -Statin on hold GERD -Continue IV PPI LANA -CPAP if patient can be compliant Obesity -Recommend weight loss -Complicates treatment, prognosis, outcomes Depression/anxiety -Patient is not on any chronic medications related to this and I recommend outpatient follow-up DVT prophylaxis -Continue Lovenox -Continue SCDs CODE STATUS -Full code Charges/Coding Visit Charges Inpatient E&M: 07224 Subs Hosp L2
[2022-03-19] MEDS: Vital AF 1.2 Cal Liquid 1,000 ML 15 ML GT (17:55)
[2022-03-19 18:11] LABS: Bedside Glucose 256 mg/dL (74-106)
[2022-03-19] MEDS: 0.9% Saline Lock 10 ML Syringe IV (21:46)
[2022-03-19 22:11] LABS: Bedside Glucose 176 mg/dL (74-106)
[2022-03-20] VITALS (9 sets, daily range): BP systolic 127–147; BP diastolic 75–86; PULSE 79–100; RESP 12–20; TEMP 35.7–36.9; O2SAT 94–100
[2022-03-20] MEDS: Ondansetron 4 MG/2 ML Vial IV (02:59)
[2022-03-20] MEDS: Albumin Human 25% (50 mL) 12.5 GM/50 ML IV.SOLN IV (05:58)
[2022-03-20] MEDS: Metoclopramide 10 MG/2 ML Vial 5 MG IV ×2 (06:13→17:39)
[2022-03-20] MEDS: HYDROmorphone 1 MG/ML Syringe 0.5 MG IV ×3 (06:14→17:39)
[2022-03-20] MEDS: 0.9% Saline Lock 10 ML Syringe IV (06:15)
[2022-03-20 06:35] LABS: Absolute Lymphocyte Count 1.36 X10^3/uL (0.83-4.51); Absolute Neutrophil Count 8.1 X10^3/uL (2.0-7.7); Basophil# 0.04 X10^3/uL; Basophil% 0.4 % (0-1); Eosinophil# 0.28 X10^3/uL; Eosinophils% 2.7 % (0-5); Hematocrit 27.6 % (37-47); Hemoglobin 8.9 g/dL (12.0-15.0); Lymphocyte # 1.36 X10^3/ul (0.83-4.51); Mean Corp Hgb Conc 32.2 g/dL (32-36); Mean Corpuscular Volume 89.9 fL (81-99); Mean Platelet Vol. 10.7 fl (6.2-12.0); Monocyte% 5.8 % (0-10); NRBC Flagged by Analyzer 0 % (0-5); Neutrophil # 8.07 X10^3/uL (2.7-7.7); Neutrophil % 77.3 % (47-70); Platelet Count 250 K/mm3 (150-450); RBC Distribution Width CV 13.8 % (11.6-14.6); RBC Distribution Width SD 44.7 fl (35.1-43.9); Red Blood Count 3.07 M/mm3 (4.2-5.4); White Blood Count 10.4 K/mm3 (4.4-11.0)
[2022-03-20] MEDS: proCHLORPERazine 10 MG/2 ML Vial 5 MG IV (06:50)
[2022-03-20 06:51] LABS: Bedside Glucose 221 mg/dL (74-106)
[2022-03-20 07:04] LABS: ALB/GLOB Ratio 0.8 RATIO (0.9-2.4); AST(SGOT) 13 U/L (15-37); Alanine Aminotransfer ALT/SGPT 15 U/L (13-56); Alkaline Phosphatase 223 U/L (45-117); Anion Gap 6 (5-15); BUN 22 mg/dL (7-18); BUN/Creat Ratio 27.3 RATIO (10-20); Calcium,Total 9.3 mg/dL (8.5-10.1); Chloride 97 mmol/L (98-107); Creatinine, Serum 0.81 mg/dL (0.55-1.02); EST Glomerular Filtration Rate 80 mL/min (>60); Est Glom Filt Rate - Afr Amer 97 mL/min (>60); Estimated Creatinine Clearance 89.85 ml/min; Globulin 3.9 g/dL (2.2-4.2); Glucose 220 mg/dL (74-106); Phosphorus 2.5 mg/dL (2.5-4.9); Potassium 3.4 mmol/L (3.5-5.1); Protein, Total 6.9 g/dL (6.4-8.2); Sodium Level 136 mmol/L (136-145)
[2022-03-20] MEDS: Potassium Chloride Oral Soln 20 MEQ/15 ML UDC 40 MEQ NG (09:59)
[2022-03-20] MEDS: Metoprolol Tartrate 25 MG Tablet PO (11:15)
[2022-03-20] MEDS: Insulin Lispro 100 UNIT/ML INSULN.PEN SC ×2 (11:19→17:40)
[2022-03-20] MEDS: Insulin Lispro 100 UNIT/ML INSULN.PEN 8 UNIT SC (11:19)
[2022-03-20 11:30] LABS: Bedside Glucose 298 mg/dL (74-106)
--- NOTE | 2022-03-20 11:56 | PCM.PN.SRG ---
Subjective Subjective Patient awaiting transfer to [facility]. Patient denies any abdominal pain and still has a lot of nausea. Patient did get a Dobbhoff placed by EGD in the jejunum Objective Data Objective Data Vital Signs: Vital Signs Temp Pulse Resp BP Pulse Ox 98.4 F 84 12 127/85 H 94 03/20/22 11:13 03/20/22 11:15 03/20/22 11:13 03/20/22 11:15 03/20/22 11:13 Oxygen Flow Rate (L/min) 2 Oxygen Delivery Method Room Air Weight: 245 lb 2.464 oz Body Mass Index (BMI) 34.6 Intake & Output: Intake and Output for Last 24 Hours 03/18/22 03/19/22 03/20/22 23:59 23:59 23:59 Intake Total 3919.07 / 3919.07 2898.5 / 2898.5 621.17 / 621.17 Output Total 0 / 0 Balance 3919.07 / 3919.07 2898.5 / 2898.5 621.17 / 621.17 Medical Nutrition Assessment Dietitian: Malnutrition Criteria Met Start: 03/13/22 15:29 Freq: Status: Active Protocol: Document 03/19/22 15:30 AG (Rec: 03/19/22 15:31 AG Desktop) Nutrition Malnutrition Evidence of Malnutrition Exists Yes Malnutrition (severe): Chronic Evidenced By Suboptimal Energy Intake ( Severe),Weight Loss (Severe) Clinical Problem Chronic Disease or Condition Related Malnutrition Etiology severe, chronic malnutrition r /t GI dysfunction Signs/Symptoms as evidenced by estimated PO intake meeting <75% of estimated energy needs >3 months; unintentional wt loss of 38.6#/14% x 5 months Status Active Problem Recommendation Dietitian Recommendations/Changes 1) Continue clear liquids as tolerated w/ ensure clear 120mL 4x/day w/ medpass; advance diet as tolerated to regular/low fat. 2) NGT for enteral nutrition support: Vital AF 1.2 at goal rate of 60mL/hour w/ 100mL H2O flush every 4 hours to provide 1728 calories, 108 g protein, 1767mL total fluid/ day. Would start at 15mL/hour and increase by 10mL/hour every 8 hours as tolerated until goal rate is achieved. 3) Continue daily wts, close monitoring of electrolytes, blood glucose. 4) Consider TPN if above interventions fails. Lab / Micro Data Result Diagrams: 03/20/22 06:05 03/20/22 06:05 Labs: Laboratory Results - last 24 hr 03/19/22 12:43: POC Glucose 405 H 03/19/22 17:36: POC Glucose 256 H 03/19/22 21:42: POC Glucose 176 H 03/20/22 05:56: POC Glucose 221 H 03/20/22 06:05: WBC 10.4, RBC 3.07 L, Hgb 8.9 L, Hct 27.6 L, MCV 89.9, MCH 29.0, MCHC 32.2, RDW Std Deviation 44.7 H, RDW Coeff of Ilene 13.8, Plt Count 250, MPV 10.7, Immature Gran % (Auto) 0.800, Neut % (Auto) 77.3 H, Lymph % (Auto) 13.0 L, [place] % (Auto) 5.8, Eos % (Auto) 2.7, Baso % (Auto) 0.4, Absolute Neuts (auto) 8.1 H, Absolute Lymphs (auto) 1.36, Nucleated RBC % 0 03/20/22 06:05: Sodium 136, Potassium 3.4 L, Chloride 97 L, Carbon Dioxide 33.0 H, Anion Gap 6, BUN 22 H, Creatinine 0.81, Estim Creat Clear Calc 89.85, Est GFR (MDRD) Af Amer 97, Est GFR (MDRD) Non-Af 80, BUN/Creatinine Ratio 27.3 H, Glucose 220 H, Calcium 9.3, Phosphorus 2.5, Magnesium 2.0, Total Bilirubin 0.50, AST 13 L, ALT 15, Alkaline Phosphatase 223 H, Total Protein 6.9, Albumin 3.0 L, Globulin 3.9, Albumin/Globulin Ratio 0.8 L 03/20/22 11:18: POC Glucose 298 H Micro: Microbiology 03/16/22 01:00 Blood Culture (Wb) - Pic Blood Culture - Preliminary No growth in 48 hours. 03/16/22 00:40 Blood Culture (Wb) - Right Forearm Blood Culture - Preliminary No growth in 48 hours. 03/12/22 14:30 Blood Culture (Wb) - Right Forearm Blood Culture - Final No growth in 5 days. 03/12/22 14:25 Blood Culture (Wb) - Anticubital Right Blood Culture - Final No growth in 5 days. 03/12/22 14:30 Nasal Secretion SARS-CoV-2 & FLU Antigen (Rapid) - Final Physical Exam Const alert and oriented x3 HEENT normocephalic and head/scalp atraumatic Resp normal respiratory effort Cardio regular rate GI soft to palpation; Negative for non-distended GI Narrative: Denies tenderness did states she gets nauseated with palpating the left side of the abdomen Palpation: Negative for guarding Extremity Extremity Narrative: Upper extremity PICC line in place Skin no rashes or lesions noted Neuro CN's II-XII intact bilaterally Psych mental status grossly normal Assessment & Plan Assessment/Plan (1) Acute necrosis of pancreas: (2) Diabetes: QUALIFIERS: Diabetes mellitus type: type 2 Diabetes mellitus halfway insulin use: with halfway use Diabetes mellitus complication status: with hyperglycemia Qualified Code(s): E11.65 - Type 2 diabetes mellitus with hyperglycemia; Z79.4 - [facility] (current) use of insulin (3) Stage 3 chronic kidney disease due to type 2 diabetes mellitus: PLAN: Patient denies any abdominal pain currently. But is still having a lot of nausea. Awaiting bed availability at [facility]. Hypokalemia -replace per primary Hyperglycemia?has improved some with the Dobbhoff jejunal tube and off TPN Sally Madrid M.D. Pager: [phone] [facility] [address] [place] [address], [facility], [address] [place] [id number] Office: [phone] Charges/Coding Visit Charges Inpatient E&M: 21502 Subs Hosp L2
--- NOTE | 2022-03-20 16:03 | DS.PCM_ITS ---
Providers Date of Admission: 03/12/22 Date of Discharge: 03/20/22 Primary Care Physician: Dr. Migue Silveira, Consultations 03/12/22 22:03 Consult: Gastroenterology Routine Consulting Provider: Rog[facility] Reason for Consult: pancreatitis EMERGENT Consult: Yes Notified: Yes Date Notified: 03/12/22 Time Notified: 20:45 Method of Notification: Verbal 03/16/22 07:56 Consult: Retail Agent / Pulmonary Medicine Routine Consulting Provider: Pulmonary Medicine [facility] Reason for Consult: pleural effusion/pancreatitis EMERGENT Consult: No MD Notified: Yes Date Notified: 03/16/22 Time Notified: 07:56 Method of Notification: Verbal 03/17/22 08:04 Consult: General Surgery Routine Consulting Provider: Sally Madrid Reason for Consult: possible necrotic pancreatitis EMERGENT Consult: No Notified: Yes Date Notified: 03/17/22 Time Notified: 08:04 Method of Notification: md to md Reason For Visit: PANCREATITIS Diagnosis Discharge Diagnosis (1) Acute necrosis of pancreas: Status: Acute Code(s): K85.91 - Acute pancreatitis with uninfected necrosis, unspecified (2) Diabetes: Status: Chronic Code(s): E11.9 - Type 2 diabetes mellitus without complications Qualifiers: Diabetes mellitus type: type 2 Diabetes mellitus fermenter helper insulin use: with fermenter helper use Diabetes mellitus complication status: with hyperglycemia Qualified Code(s): E11.65 - Type 2 diabetes mellitus with hyperglycemia; Z79.4 - residential (current) use of insulin (3) Stage 3 chronic kidney disease due to type 2 diabetes mellitus: Status: Chronic Code(s): E11.22 - Type 2 diabetes mellitus with diabetic chronic kidney disease; N18.3 - Chronic kidney disease, stage 3 (moderate) Medications at Discharge Home Medications aspirin 81 mg tablet,delayed release 81 mg PO DAILY 07/11/20 insulin aspart U-100 100 unit/mL (3 mL) subcutaneous pen 9 unit SC TID ml 07/11/20 metoprolol tartrate 25 mg tablet 25 mg PO BID 07/11/20 multivitamin 1 tab PO DAILY 07/11/20 omega-3 fatty acids 1,000 mg capsule 1,000 mg PO DAILY 07/11/20 pravastatin 40 mg tablet 40 mg PO DAILY 07/11/20 ondansetron 4 mg disintegrating tablet 4 mg PO Q8H PRN #90 tab 12/27/21 Ajovy Autoinjector 225 mg SUBCUT QMONTH 12/28/21 Trulicity 3 mg SUBCUT NOVA 12/28/21 metoclopramide HCl 5 mg tablet 5 mg PO QAC #90 tab 01/17/22 scopolamine base 1 mg over 3 days transdermal patch 1 patch TRANSDERMAL Q72H #10 ea 02/12/22 Linzess 290 mcg PO DAILY 03/12/22 insulin glargine [Lantus Solostar U-100 Insulin] 50 unit SUBCUT QHS 03/12/22 [id number] 24,000-76,000-120,000 unit capsule,delayed rel 1 cap PO TID #180 cap 03/12/22 methocarbamol 1,500 mg PO TID 03/12/22 omeprazole 40 mg PO DAILY 03/12/22 tizanidine 4 mg PO Q8H 03/12/22 trazodone 200 mg PO QHS 03/12/22 Hospital Course Operations None Procedures EGD and - (Post-pyloric Dobbhoff placement) Summary of Care Provided Minutes Spent on Discharge: 41 Hospital Course: Mrs. Sherwood is a 51-year-old white female who presented to the emergency department at [facility] on 03/12/2022 secondary to fevers and abdominal pain. The patient has a past medical history of poorly controlled diabetes, obesity, GERD, paroxysmal atrial fibrillation as well as diabetic gastroparesis and recently underwent an ERCP for evaluation of an abnormal MRCP. The ERCP was done on 03/01/2022 when she was discovered to have a biliary stricture with a dilated pancreatic duct and a common bile duct. A stent was placed in the pancreatic duct to prevent post ERCP pancreatitis and a stent was also placed in the common bile duct due to stricture. Brushings were taken of the distal common bile duct stricture at that time. Upon presentation to the emergency department she had complained of difficulty eating since her procedure but her pain increased and became more severe so she came to be evaluated. A CT of her abdomen pelvis was done at the time of admission and demonstrated focal pancreatitis at the tail of the pancreas with a 9 cm acute peripancreatic fluid collection versus a necrotic collection. She was admitted to the hospital and made n.p.o. and placed on IV fluids aggressively as well as medicine for pain control and antiemetics and gastroenterology was consulted. She was placed on antibiotic therapy and albumin therapy was added by gastroenterology as well. Reglan was added as there was concern that her baseline gastroparesis could worsen and cause a paralytic ileus secondary to acute pancreatitis. The patient was advanced to a liquid diet on 03/14/2022 but continued to have significant nausea and pain. She had follow-up chest imaging that showed small pleural effusions and pulmonary medicine was consulted at that time. It was felt that her effusion was most certainly related to acute pancreatitis and no indication to proceed with thoracentesis was required at that time. On follow-up imaging the effusion had predominantly resolved since the . General surgery was consulted on 03/17/2022 secondary to concern for necrotizing pancreatitis. General surgery reviewed the CT of her abdomen pelvis from both the and the and felt that there was less air in the fluid collection. They felt that the air could be due to previous ERCP however repeat CT of her abdomen and pelvis was planned to be performed on 03/19/2022. The plan was if the fl uid collection had not improved transfer to tertiary center for interventional radiology drainage would be pursued at that time. The patient was started on TPN on 03/17/2022 as well. Given her baseline uncontrolled diabetes and her acute pancreatitis her blood sugars were markedly difficult to control on TPN and given the most appropriate way of feeding a patient with pancreatitis is postpyloric enteral feeds a postpyloric Dobbhoff was placed via EGD on 03/19/2022. TPN was discontinued at that time and the patient was started on tube feed which she is tolerating well so far. Her blood sugar control has improved since that time. Unfortunately her fluid collection remained and transfer was pursued on 03/19/2022. She was accepted at [facility] for transfer by Dr. Guy and a bed became available on 03/20/2022. The patient was transferred to [facility] in stable condition at this time. Discharge diagnoses: Acute pancreatitis in the pancreatic tail Pancreatic phlegmon/abscess Concern for pancreatic necrosis Biliary stricture status post stent DM-2 uncontrolled at baseline Hypokalemia Hyponatremia Hypochloremia Pleural effusions-resolved Chronic normocytic anemia PAF Hypertension Hyperlipidemia GERD LANA Obesity Depression Anxiety Physical Exam Const alert, oriented x3 and no apparent distress Constitutional Narrative: Obese, middle-aged white female sitting up in bed, appears much older than stated age, appears comfortable and nontoxic, nursing at bedside, at bedside General Appearance: cooperative, comfortable, well kempt and well developed Exam Limitations: no limitations Nutritional Appearance: obese HEENT normocephalic, head/scalp atraumatic, hearing grossly normal bilaterally and moist oral mucous membranes HEENT Narrative: Mallampati 2-3, no thrush, Dobbhoff in right nares Eyes PERRL, EOMs intact bilaterally and no scleral icterus; Negative for conjunctivae normal Eyes Narrative: Mildly pale conjunctiva bilaterally, no scleral icterus Neck no lymphadenopathy, supple and no JVD Neck Narrative: Trachea midline, no thyroid enlargement General: trachea midline Lymph Lymphatic: no lymphadenopathy noted Resp normal respiratory effort, no retractions, no use of accessory muscles and clear to auscultation bilaterally Resp Narrative: Diminished at bases bilaterally but otherwise clear Effort and Inspection: able to speak in complete sentences and symmetric chest movement Auscultation: Negative for crackles, rales, rhonchi or wheezes Cardio regular rate, regular rhythm, S1 normal heart sound, S2 normal heart sound, no murmurs, no rub, no gallops, no clicks and no JVD Rate: tachycardic GI normal to inspection, nondistended, normoactive bowel sounds, soft to palpation and non-distended GI Narrative: Tenderness in the epigastric and left upper quadrant during palpation Inspection: abdominal distention Auscultation: hypoactive bowel sounds Palpation: firm and tender epigastric, LUQ and RUQ Extremity normal to inspection, full ROM and no clubbing, cyanosis or edema Skin no rashes or lesions noted, no wounds, skin turgor normal, no jaundice, no petechiae and no mottling Skin Narrative: PICC right upper extremity-clean and dry with intact dressing, scattered ecchymosis from phlebotomy and PICC placement, skin is slightly pale General Skin Exam: turgor normal Neuro oriented x3, CN's II-XII intact bilaterally, moves all extremities, no focal motor deficits and no sensory deficits noted Sensorium / Orientation: awake and alert Speech: speech normal Psych affect normal Psych Narrative: Anxious but appropriate Medical Records Data Medical Nutrition Assessment Dietitian: Malnutrition Criteria Met Start: 03/13/22 15:29 Freq: Status: Active Protocol: Document 03/20/22 12:14 RMA (Rec: 03/20/22 12:14 RMA [id number]) Nutrition Malnutrition Evidence of Malnutrition Exists Yes Malnutrition (severe): Chronic Evidenced By Suboptimal Energy Intake ( Severe),Weight Loss (Severe) Clinical Problem Chronic Disease or Condition Related Malnutrition Etiology severe, chronic malnutrition r /t GI dysfunction Signs/Symptoms as evidenced by estimated PO intake meeting <75% of estimated energy needs >3 months; unintentional wt loss of 38.6#/14% x 5 months Status Active Problem Recommendation Dietitian Recommendations/Changes 1) NPO; will d/c ensure clear with medpass for now. 2) Continue TF support via Dobbhoff jejunal tube with Vital AF 1.2 to goal rate of 60mL/hour w/ 100mL H2O flush every 4 hours to provide 1728 calories, 108 g protein, 1767mL total fluid/day. Start at 15mL/hour and increase by 10mL/hour every 8 hours as tolerated until goal rate is achieved. 3) Continue daily wts, close monitoring of electrolytes, blood glucose. 4) Consider TPN if enteral nutrition intervention fails. Weight / BMI Weight Weight: 111.2 kg Body Mass Index (BMI) 34.6 ABG / Lab / Microbiology Data Result Diagrams: 03/20/22 06:05 03/20/22 06:05 Laboratory: Laboratory Results - last 24 hr 03/19/22 17:36: POC Glucose 256 H 03/19/22 21:42: POC Glucose 176 H 03/20/22 05:56: POC Glucose 221 H 03/20/22 06:05: WBC 10.4, RBC 3.07 L, Hgb 8.9 L, Hct 27.6 L, MCV 89.9, MCH 29.0, MCHC 32.2, RDW Std Deviation 44.7 H, RDW Coeff of Ilene 13.8, Plt Count 250, MPV 10.7, Immature Gran % (Auto) 0.800, Neut % (Auto) 77.3 H, Lymph % (Auto) 13.0 L, [place] % (Auto) 5.8, Eos % (Auto) 2.7, Baso % (Auto) 0.4, Absolute Neuts (auto) 8.1 H, Absolute Lymphs (auto) 1.36, Nucleated RBC % 0 03/20/22 06:05: Sodium 136, Potassium 3.4 L, Chloride 97 L, Carbon Dioxide 33.0 H, Anion Gap 6, BUN 22 H, Creatinine 0.81, Estim Creat Clear Calc 89.85, Est GFR (MDRD) Af Amer 97, Est GFR (MDRD) Non-Af 80, BUN/Creatinine Ratio 27.3 H, Glucose 220 H, Calcium 9.3, Phosphorus 2.5, Magnesium 2.0, Total Bilirubin 0.50, AST 13 L, ALT 15, Alkaline Phosphatase 223 H, Total Protein 6.9, Albumin 3.0 L, Globulin 3.9, Albumin/Globulin Ratio 0.8 L 03/20/22 11:18: POC Glucose 298 H Microbiology: Microbiology 03/16/22 01:00 Blood Culture (Wb) - Pic Blood Culture - Preliminary No growth in 48 hours. 03/16/22 00:40 Blood Culture (Wb) - Right Forearm Blood Culture - Preliminary No growth in 48 hours. 03/12/22 14:30 Blood Culture (Wb) - Right Forearm Blood Culture - Final No growth in 5 days. 03/12/22 14:25 Blood Culture (Wb) - Anticubital Right Blood Culture - Final No growth in 5 days. 03/12/22 14:30 Nasal Secretion SARS-CoV-2 & FLU Antigen (Rapid) - Final Meaningful Use Info Meaningful Use Diagnoses (Choose all that apply): None applicable Discharge Plan Admission Admit Date/Time: 03/12/22 20:39 Primary Reason for Your Visit: Fever/abdominal pain Attending Provider: Lynda Mercado Primary Care Provider: Migue Silveira Consulting Providers: Lee Dunn ; Rafat Beth ; Kel Xavier ; Mariluz Churchill NP ; Antonio Alvarez ; Sally Madrid ; Nilam Blanco Discharge Orders/Prescriptions Prescriptions: No Action aspirin 81 mg tablet,delayed release (DR/EC) 81 mg PO DAILY RF: 0 metoprolol tartrate 25 mg tablet 25 mg PO BID RF: 0 pravastatin 40 mg tablet 40 mg PO DAILY RF: 0 omega-3 fatty acids [Fish Oil Concentrate] 1,000 mg capsule 1,000 mg PO DAILY RF: 0 multivitamin [Daily Multi-Vitamin] Tablet 1 tab PO DAILY RF: 0 insulin aspart U-100 [Novolog Flexpen U-100 Insulin] 100 unit/mL (3 mL) insulin pen 9 unit SC TID RF: 0 metoclopramide HCl 5 mg tablet 5 mg PO QAC Qty: 90 RF: 0 Ajovy Autoinjector 225 mg/1.5 mL auto-injector 225 mg SUBCUT QMONTH RF: 0 Trulicity 3 mg/0.5 mL Pen Injector 3 mg SUBCUT NOVA RF: 0 tizanidine 4 mg tablet 4 mg PO Q8H RF: 0 omeprazole 40 mg capsule,delayed release(DR/EC) 40 mg PO DAILY RF: 0 methocarbamol 750 mg tablet 1,500 mg PO TID RF: 0 trazodone 100 mg tablet 200 mg PO QHS RF: 0 Lantus Solostar U-100 Insulin 100 unit/mL (3 mL) insulin pen 50 unit SUBCUT QHS RF: 0 Linzess 145 mcg capsule 290 mcg PO DAILY RF: 0 ondansetron 4 mg tablet,disintegrating 4 mg PO Q8H PRN (Reason: nausea and vomiting) Qty: 90 RF: 1 scopolamine base 1 mg over 3 days patch 3 day 1 patch transdermal Q72H Qty: 10 RF: 0 Creon 24,000-76,000 -120,000 unit capsule,delayed release(DR/EC) 1 cap PO TID Qty: 180 RF: 4 Referrals / Follow Up: Migue Silveira DO [Primary Care Provider] - Disposition Disposition (needs filled in before D/C Order can be placed): Acute Care Hospital Charges/Coding Visit Charges Inpatient E&M: 05916 Disch Hosp
--- NOTE | 2022-03-20 16:58 | NURSING ---
Report called to Honey at [facility] at [phone].
[2022-03-20 17:36] LABS: Bedside Glucose 278 mg/dL (74-106)
== END 2022-03-20 18:39 | disposition short-term general hospital (02) | DRG 438 ==
LOC: ED 20:04 → PCU 03-13 07:04
PROVIDERS: Family Medicine; Internal Medicine; Internal Medicine Gastroenterology; Nurse Practitioner Family; Physician Assistant; Admitting Provider Family Medicine; Emergency Provider Emergency Medicine; PCP Student in an Organized Health Care Education/Training Program; Visit Provider Internal Medicine
PROC: 0DJ08ZZ Inspection of Upper Intestinal Tract, Via Natural or Artificial Opening Endoscopic (ICD-10-PCS; CPT 43235; principal; 2022-03-19 16:00)
DX: K85.91 Acute pancreatitis with uninfected necrosis, unspecified (principal); E43 Unspecified severe protein-calorie malnutrition; J90 Pleural effusion, not elsewhere classified; E87.1 Hypo-osmolality and hyponatremia; E11.319 Type 2 diabetes mellitus with unspecified diabetic retinopathy without macular edema; D63.1 Anemia in chronic kidney disease; K26.9 Duodenal ulcer, unspecified as acute or chronic, without hemorrhage or perforation; E11.21 Type 2 diabetes mellitus with diabetic nephropathy; I48.0 Paroxysmal atrial fibrillation; F31.9 Bipolar disorder, unspecified; Z79.4 Long term (current) use of insulin; E11.22 Type 2 diabetes mellitus with diabetic chronic kidney disease; E11.43 Type 2 diabetes mellitus with diabetic autonomic (poly)neuropathy; E11.65 Type 2 diabetes mellitus with hyperglycemia; N18.30 Chronic kidney disease, stage 3 unspecified; E87.8 Other disorders of electrolyte and fluid balance, not elsewhere classified; E78.2 Mixed hyperlipidemia; M19.90 Unspecified osteoarthritis, unspecified site; I12.9 Hypertensive chronic kidney disease with stage 1 through stage 4 chronic kidney disease, or unspecified chronic kidney disease; E87.6 Hypokalemia; K31.84 Gastroparesis; K21.9 Gastro-esophageal reflux disease without esophagitis; G47.33 Obstructive sleep apnea (adult) (pediatric); F41.9 Anxiety disorder, unspecified; K59.09 Other constipation; E66.09 Other obesity due to excess calories; Z68.34 Body mass index [BMI] 34.0-34.9, adult; Z79.01 Long term (current) use of anticoagulants; Z79.82 Long term (current) use of aspirin; Z79.899 Other long term (current) drug therapy; Z86.16 Personal history of COVID-19
CPT/HCPCS: 36415; 36569; 71045; 71046; 74177; 76604; 76705; 80048; 80053; 80076; 81001; 82150; 82550; 82947; 82962; 83605; 83615; 83690; 83735; 84100; 84478; 84484; 85025; 85610; 85652; 85730; 86140; 87040; 87428; 97802; 97803; 99285; J7030; J7040; J7050; P9047; Q9967; A4216; J1940; J2405

== ENCOUNTER 2022-08-03 17:38 | Emergency (ER) | payer OTHER, SELFPAY ==
[2022-08-03 17:39] VITALS: BP 133/113; PULSE 121; RESP 20; TEMP 35.9; O2SAT 99
[2022-08-03 17:40] VITALS: BP 133/113; PULSE 121; RESP 20; TEMP 35.9; O2SAT 99; BMI 32.1
--- NOTE | 2022-08-03 18:42 | EDS_ITS ---
HPI HPI - GI History of Present Illness Chief Complaint: Nausea/Vomiting Informant: patient Abdominal Pain/Flank Pain Onset: Days Context: Gradual Onset Timing: Intermittent Quality: Burning and Cramping Location: Epigastric Current Severity: Mild Maximum Severity: Mild Worsened by: Nothing Relieved by: Nothing Nausea/Vomiting/Emesis GI Symptom: Positive for Nausea and Vomiting Onset: Today and Yesterday Severity: Mild Diarrhea/Melena/Hematochezia GI Symptom: Positive for Diarrhea Onset: Days Stool Quality: Negative for Loose Severity: Mild Associated Symptoms Associated Symptoms: Positive for Dysuria; Negative for Frequency, Hematuria or Urgency Narrative Narrative: 32-year-old female history of diabetes, chronic kidney disease and pancreatitis. Has been admitted to the hospital both here and [facility] within the last several months. States she has had nausea vomiting diarrhea last several days. Think she has pancreatitis again possibly. Also mild dysuria. No fever. No melena. No hematemesis. Epigastric pain that goes into her back. Prior similar symptoms: Yes Recent Illness/Hospitalization: Yes PFSH PFS Medical History Acute necrosis of pancreas Alcohol use Allergies Anemia Anxiety Arthritis Atrial fibrillation Back problem COVID Depression Dietary restriction Excessive bleeding Gastritis GERD (gastroesophageal reflux disease) History of cardiac murmur History of edema History of renal disease HTN (hypertension) Hyperlipidemia Insulin dependent diabetes mellitus Leg cramps Liver disease Migraine Shortness of breath on exertion Sleep apnea Tubular adenoma of colon Vitamin deficiency Wears glasses Wears partial dentures Home Medications aspirin 81 mg tablet,delayed release 81 mg PO DAILY heart health 07/11/20 [History Last Taken 03/12/22] insulin aspart U-100 100 unit/mL (3 mL) subcutaneous pen (Novolog Flexpen U-100 Insulin aspart) 20 unit subcut TID diabetes 07/11/20 [History Last Taken 03/12/22] metoprolol tartrate 25 mg tablet 25 mg PO BID blood pressure 07/11/20 [History Last Taken 03/12/22] multivitamin (Daily Multi-Vitamin tablet) 1 tab PO DAILY vitamin 07/11/20 [History Last Taken 03/12/22] dulaglutide 3 mg/0.5 mL subcutaneous pen injector (Trulicity) 3 mg subcut ONVA DM 12/28/21 [History Last Taken 03/04/22] insulin glargine 100 unit/mL (3 mL) subcutaneous pen (Lantus Solostar U-100 Insulin) 55 unit subcut QHS DM 03/12/22 [History Last Taken 03/11/22] tizanidine 4 mg tablet 4 mg PO Q8H SPASMS 03/12/22 [History Last Taken 03/12/22] trazodone 100 mg tablet 200 mg PO QHS sleep 03/12/22 [History Last Taken 03/11/22] linaclotide 290 mcg capsule (Linzess) 290 mcg PO DAILY #90 caps 05/01/22 [Rx Last Taken Unknown] ondansetron 4 mg disintegrating tablet 4 mg PO Q8H PRN nausea and vomiting #90 tabs 07/24/22 [Rx Last Taken Unknown] acetaminophen 500 mg tablet 1,000 mg PO BID 08/03/22 [History Last Taken Unknown] amlodipine 2.5 mg tablet 2.5 mg PO DAILY 08/03/22 [History Last Taken Unknown] docusate sodium 100 mg tablet 100 mg PO BID 08/03/22 [History Last Taken Unknown] empagliflozin 10 mg tablet (Jardiance) 10 mg PO DAILY 08/03/22 [History Last Taken Unknown] furosemide 20 mg tablet (Lasix) 20 mg PO DAILY 08/03/22 [History Last Taken Unknown] magnesium oxide 400 mg PO DAILY 08/03/22 [History Last Taken Unknown] metaxalone 400 mg tablet 800 mg PO TID 08/03/22 [History Last Taken Unknown] pantoprazole 40 mg tablet,delayed release 40 mg PO DAILY 08/03/22 [History Last Taken Unknown] rosuvastatin 10 mg tablet 10 mg PO DAILY 08/03/22 [History Last Taken Unknown] Allergy/AdvReac Type Severity Reaction Status Date / Time lactase [From Dairy Aid] Allergy Severe diarrhea Verified 03/12/22 13:58 codeine Allergy Intermediate mental Verified 03/12/22 13:58 status diphenhydramine Allergy Intermediate mental Verified 03/12/22 13:58 [From Benadryl Allergy] status quetiapine [From Seroquel] Allergy Intermediate about Verified 03/12/22 13:58 killed me - went into DKA morphine Allergy NEEDS Verified 03/12/22 13:58 FOLLOW-UP Family History Other Arthritis Cancer Depression Diabetes Kidney disease Surgical History History of esophagogastroduodenoscopy (EGD) History of hysterectomy Hx of colonoscopy Social History Smoking Status: Never smoker alcohol intake: current ROS ROS ED ROS Narrative Nausea, vomiting and diarrhea. Abdominal pain. Review of Systems ROS Unobtainable: Denies due to encephalopathy Constitutional Constitutional ED: Denies chills or fever(s) ENT ENT ED: Denies ear pain Cardiovascular Cardiovascular: Denies chest pain Respiratory/Chest Respiratory/Chest: Denies cough or dyspnea Gastrointestinal Gastrointestinal: Reports abdominal pain, diarrhea, nausea and vomiting; Denies constipation or melena Genitourinary Genitourinary ED: Reports dysuria Musculoskeletal Musculoskeletal: Denies arthralgias Integumentary Denies abscess Neurologic Neurologic: Denies headache(s) Psychiatric Psychiatric: Denies anxiety Endocrine Endocrinology: Denies polydipsia Hematologic/Lymphatic Hematologic/Lymphatic: Denies easy bleeding Allergic/Immunologic Allergic/Immunologic ED: Denies mouth swelling or tongue swelling EXAM Physical Exam Narrative Exam Narrative: 52-year-old female. Vital signs stable. Tachycardic at 121. Afebrile. Normal pulse ox. H EENT exam dry mucous membranes. Neck nontender. Lungs clear. Heart tachycardic rate about 120 no murmur. Abdomen soft nondistended normal bowel sounds no peritoneal signs. She does have epigastric tenderness. No hernia or mass. No obstruction. No pulsatile mass. Moving all 4 extremities. Nontender no edema. Back nontender. Neurologically she is awake and alert. Const Vital Signs: 08/03/22 17:40 08/03/22 17:39 08/03/22 20:12 Temperature 96.7 F L 96.7 F L Temperature Source Temporal Temporal Pulse Rate 121 H 121 H 74 Respiratory Rate 20 H 20 H 15 Blood Pressure 133/113 H 133/113 H Blood Pressure Mean 119 119 Pulse Ox 99 99 98 Oxygen Delivery Method Room Air Room Air Room Air 08/03/22 22:10 Temperature Temperature Source Pulse Rate 74 Respiratory Rate 17 Blood Pressure Blood Pressure Mean Pulse Ox 98 Oxygen Delivery Method Room Air Positive well nourished, well developed and obese; Negative for cachectic, contractures or unkempt General Appearance ED: well developed and NAD; Negative for unkempt, cachectic, contractures or pallor Nutritional Appearance: obese; Negative for cachectic HEENT Reports dry mucous membranes; Denies moist mucous membranes normocephalic and atraumatic; Negative for trauma or tenderness Mouth ED: Yes dry mucous membranes Mouth: dry mucous membranes Eyes PERRL and EOMs intact bilaterally General Eye ED: Negative for pale conjunctiva or scleral icterus Neck no lymphadenopathy, supple and no JVD General: Negative for tenderness Carotids: Negative for other Lymph Lymphatic: Negative for other Resp normal respiratory effort and clear to auscultation bilaterally Effort and Inspection: Negative for respiratory distress Auscultation: Negative for rales, rhonchi or wheezes Cardio regular rhythm, S1 normal heart sound, S2 normal heart sound and no murmurs; Negative for regular rate Rate: tachycardic GI non-distended and no masses; Negative for non-tender Inspection: Negative for abdominal distention Auscultation: normoactive bowel sounds Palpation: soft and tender; Negative for guarding, rigid, hepatomegaly, splenomegaly, hernia, mass, pulsatile mass or rebound tenderness present Back/Spine no CVA tenderness General Back: Negative for CVA tenderness Cervical Spine: Negative for cervical spine tenderness Thoracic Spine / Upper Back: Negative for thoracic spinal tenderness Lumbar Spine / Lower Back: Negative for lumbar spinal tenderness Coccyx: Negative for other Extremity full ROM General Extremety ED: Negative for edema or tenderness General Extremity: Negative for edema Neuro CN's II-XII intact bilaterally and moves all extremities Sensorium / Orientation: alert, oriented to person, oriented to place and oriented to time; Negative for orientation impaired, confused, lethargic or stuporous Motor Exam: strength 5/5 throughout Psych mental status grossly normal and thought process normal Appearance: Negative for unkempt Attitude: No agitated Mood & Affect: Negative for depressed, anxious or tearful Skin no wounds General Skin Exam: Negative for jaundice or pallor Lesions: no lesions Rashes: no rashes Trauma: Negative for abrasion Nails: Negative for discolored MDM MDM MDM Narrative Medical decision making narrative: 52-year-old with nausea, vomiting and diarrhea. History of pancreatitis. Differential would include viral syndrome, pancreatitis versus other etiologies. Labs to be obtained. IV Dilaudid for pain, IV Zofran for nausea and IV fluids for dehydration. Urinalysis also being obtained for dysuria. Repeat exam at 10:05 PM patient doing well. Abdomen benign. She and I went over her test results. She will be discharged home. She has nausea medication at home. Lab Data Attestation: I reviewed the patient's lab results. Lab results narrative: CBC shows a white count 12.5. H&H 11.5 and 36.3. Normal platelets. Electrolytes show a gap of 8. BUN and creatinine of 15 and 1. Liver enzymes unremarkable. Alkaline phosphatase 131. Amylase normal at 44. Lipase normal at 68. Urinalysis 5-10 white cells no nitrites and rare bacteria. A culture will be sent. But clinically that is negative. Blood sugar elevated at 288. Labs: Laboratory Results - last 24 hr 08/03/22 08/03/22 08/03/22 18:41 18:50 18:50 WBC 12.5 H RBC 4.17 L Hgb 11.5 L Hct 36.3 L MCV 87.1 MCH 27.6 MCHC 31.7 L RDW Std Deviation 45.2 H RDW Coeff of Ilene 14.3 Plt Count 241 MPV 10.6 Immature Gran % (Auto) 0.500 Neut % (Auto) 86.0 H Lymph % (Auto) 8.8 L [place] % (Auto) 4.2 Eos % (Auto) 0.2 Baso % (Auto) 0.3 Absolute Neuts (auto) 10.7 H Absolute Lymphs (auto) 1.10 Nucleated RBC % 0 Sodium 138 Potassium 3.9 Chloride 103 Carbon Dioxide 27.0 Anion Gap 8 BUN 15 Creatinine 1.03 H Estim Creat Clear Calc 69.88 Est GFR (MDRD) Af Amer 73 Est GFR (MDRD) Non-Af 60 BUN/Creatinine Ratio 14.6 Glucose 288 H Calcium 9.4 Total Bilirubin 0.40 AST 15 ALT 22 Alkaline Phosphatase 131 H Total Protein 7.5 Albumin 3.2 Globulin 4.3 H Albumin/Globulin Ratio 0.7 L Amylase 44 Lipase 68 L Urine Color Yellow Urine Clarity Clear Urine pH 7.0 Ur Specific [place] 1.010 Urine Protein 15 H Urine Glucose (UA) 1000 H Urine Ketones Negative Urine Occult Blood 10 H Urine Nitrite Negative Urine Bilirubin Negative Urine Urobilinogen Normal Ur Leukocyte Esterase Negative Urine RBC 0-5 SEEN Urine WBC 5-10 SEEN Ur Squamous Epith Cells 0-5 SEEN Urine Bacteria RARE Urine Mucus 0 SEEN Discharge Plan Triage Chief Complaint: Nausea/Vomiting ED Provider: Dino Clark Dx/Rx/DC Orders Clinical Impression: Viral syndrome, Gastroenteritis, Abdominal pain, History of pancreatitis, Hyperglycemia due to diabetes mellitus Instructions: Abdominal Pain, ED Gastroenteritis, Noninfectious Prescriptions: No Action aspirin 81 mg tablet,delayed release (DR/EC) 81 mg PO DAILY metoprolol tartrate 25 mg tablet 25 mg PO BID multivitamin [Daily Multi-Vitamin] Tablet 1 tab PO DAILY insulin aspart U-100 [Novolog Flexpen U-100 Insulin] 100 unit/mL (3 mL) insulin pen 20 unit SC TID Trulicity 3 mg/0.5 mL Pen Injector 3 mg SUBCUT NOVA tizanidine 4 mg tablet 4 mg PO Q8H Label Comments: TAKE 1 TABLET BY MOUTH EVERY 8 HOURS FOR 7 DAYS NEEDED FOR MUSCLE SPASM. DO NOT DRIVE, OPERATE HEAVY MACHINERY OR DRINK ALCOHOL WHILE TAKING THIS MEDICATION. trazodone 100 mg tablet 200 mg PO QHS Label Comments: TAKE 2 TABLETS BY MOUTH ONCE DAILY AT BEDTIME AFTER A MEAL, DIRECTED, NEEDED FOR SLEEP/INSOMNIA insulin glargine [Lantus Solostar U-100 Insulin] 100 unit/mL (3 mL) insulin pen 55 unit SUBCUT QHS metaxalone 400 mg Tablet 800 mg PO TID amlodipine 2.5 mg Tablet 2.5 mg PO DAILY acetaminophen 500 mg Tablet 1,000 mg PO BID pantoprazole 40 mg Tablet,Delayed Release (Dr/Ec) 40 mg PO DAILY furosemide [Lasix] 20 mg Tablet 20 mg PO DAILY docusate sodium 100 mg Tablet 100 mg PO BID rosuvastatin 10 mg Tablet 10 mg PO DAILY Jardiance 10 mg Tablet 10 mg PO DAILY magnesium oxide 400 mg magnesium Tablet 400 mg PO DAILY Linzess 290 mcg capsule 290 mcg PO DAILY Qty: 90 3RF ondansetron 4 mg tablet,disintegrating 4 mg PO Q8H PRN (Reason: nausea and vomiting) Qty: 90 1RF Primary Care Provider: Migue Silveira Referrals: Migue Silveira DO [Primary Care Provider] - 3-5 Days if not improving Activity Restrictions/Additional Instructions: Plenty of fluids and rest. Your home Zofran as needed for nausea. Follow-up with your doctor if not improving return if worse. There were no signs of pancreatitis tonight. Disposition Disposition: Home, Self Care
[2022-08-03] MEDS: HYDROmorphone 1 MG/ML Syringe IV (18:53)
[2022-08-03] MEDS: Ondansetron 4 MG/2 ML Vial IV (18:53)
[2022-08-03] MEDS: 0.9% Normal Saline 1,000 ML 1000 ML IV (18:53)
[2022-08-03 19:03] LABS: Absolute Neutrophil Count 10.7 X10^3/uL (2.0-7.7); Basophil# 0.04 X10^3/uL; Basophil% 0.3 % (0-1); Eosinophil# 0.02 X10^3/uL; Eosinophils% 0.2 % (0-5); Hematocrit 36.3 % (37-47); Hemoglobin 11.5 g/dL (12.0-15.0); Lymphocyte % 8.8 % (19-41); Mean Corp Hgb Conc 31.7 g/dL (32-36); Mean Corpuscular Hgb 27.6 pg (27.0-32.0); Mean Corpuscular Volume 87.1 fL (81-99); Mean Platelet Vol. 10.6 fl (6.2-12.0); Monocyte# 0.52 X10^3/uL; Monocyte% 4.2 % (0-10); NRBC Flagged by Analyzer 0 % (0-5); Neutrophil # 10.71 X10^3/uL (2.7-7.7); Platelet Count 241 K/mm3 (150-450); RBC Distribution Width CV 14.3 % (11.6-14.6); RBC Distribution Width SD 45.2 fl (35.1-43.9); Red Blood Count 4.17 M/mm3 (4.2-5.4); White Blood Count 12.5 K/mm3 (4.4-11.0)
[2022-08-03 19:21] LABS: ALB/GLOB Ratio 0.7 RATIO (0.9-2.4); AST(SGOT) 15 U/L (15-37); Alanine Aminotransfer ALT/SGPT 22 U/L (13-56); Albumin, Serum 3.2 g/dL (3.2-5.0); Alkaline Phosphatase 131 U/L (45-117); Amylase 44 U/L (25-115); Anion Gap 8 (5-15); BUN 15 mg/dL (7-18); BUN/Creat Ratio 14.6 RATIO (10-20); Calcium,Total 9.4 mg/dL (8.5-10.1); Chloride 103 mmol/L (98-107); Creatinine, Serum 1.03 mg/dL (0.55-1.02); EST Glomerular Filtration Rate 60 mL/min (>60); Est Glom Filt Rate - Afr Amer 73 mL/min (>60); Estimated Creatinine Clearance 69.88 ml/min; Globulin 4.3 g/dL (2.2-4.2); Glucose 288 mg/dL (74-106); Lipase 68 U/L (73-393); Potassium 3.9 mmol/L (3.5-5.1); Protein, Total 7.5 g/dL (6.4-8.2); Sodium Level 138 mmol/L (136-145)
[2022-08-03 20:12] VITALS: PULSE 74; RESP 15; O2SAT 98
[2022-08-03 20:26] LABS: Mucous, Urine 0 SEEN /hpf (<or=2+)
[2022-08-03 20:39] LABS: Color, Urine Yellow (Yellow); Glucose, Dipstick 1000 mg/dl (Normal); Ketone-Dipstick Negative (Negative); Leukocyte Esterase-Dipstick Negative /ul (Negative); Nitrite-Dipstick Negative (Negative); Occult Blood-Urine 10 /ul (Negative); Protein-Dipstick 15 mg/dl (Negative); Urine Bilirubin Dipstick Negative (Negative); Urine Clarity Clear (Clear); Urine Urobilinogen Normal (Normal)
[2022-08-03 20:50] LABS: Bacteria RARE /hpf (None Seen); Red Blood Cells-Urine 0-5 SEEN /hpf (0-5); Squamous Epithelial Cells - UA 0-5 SEEN /hpf (5-10); White Blood Cells 5-10 SEEN /hpf (0-5)
[2022-08-03 22:10] VITALS: PULSE 74; RESP 17; O2SAT 98
== END 2022-08-03 22:21 | disposition home or self-care (01) ==
PROVIDERS: Emergency Provider Emergency Medicine; PCP Student in an Organized Health Care Education/Training Program; Visit Provider Emergency Medicine
DX: B34.9 Viral infection, unspecified (principal); E11.65 Type 2 diabetes mellitus with hyperglycemia; I48.91 Unspecified atrial fibrillation; Z79.4 Long term (current) use of insulin; K52.9 Noninfective gastroenteritis and colitis, unspecified; E66.9 Obesity, unspecified; R10.13 Epigastric pain; I12.9 Hypertensive chronic kidney disease with stage 1 through stage 4 chronic kidney disease, or unspecified chronic kidney disease; N18.9 Chronic kidney disease, unspecified; Z68.32 Body mass index [BMI] 32.0-32.9, adult; Z90.710 Acquired absence of both cervix and uterus; Z79.82 Long term (current) use of aspirin; Z79.84 Long term (current) use of oral hypoglycemic drugs; Z79.85 Long-term (current) use of injectable non-insulin antidiabetic drugs; Z79.899 Other long term (current) drug therapy; Z86.16 Personal history of COVID-19; Z87.19 Personal history of other diseases of the digestive system
CPT/HCPCS: 80053; 81001; 82150; 83690; 85025; 87086; 87088; 96361; 96374; 96375; 99283; J7030; J2405

== ENCOUNTER 2022-09-07 14:30 | Emergency (ER) | payer OTHER, SELFPAY ==
[2022-09-07 14:30] VITALS: BP 146/94; PULSE 87; RESP 16; TEMP 36.4; O2SAT 100; BMI 19.1
--- NOTE | 2022-09-07 15:28 | EDS_ITS ---
HPI <CHARO Virgen - Last Filed: 09/07/22 21:38> History of Present Illness Chief Complaint: Abn Labs Narrative Narrative: Patient states she had an appointment with her GI doctor, Dr. Curtis, this morning. He ordered labs on her and requested she come down to the ED due to having a glucose of 742. She admits to polydipsia but otherwise states she feels fine. She admits to having difficult glucose control over the past several months. She states she is currently taking 70 units of Lantus at night with 12 to 17 units of Humalog with meals. She denies polyuria, weakness, headache, difficulty breathing, chest pain. PFS <CHARO Virgen - Last Filed: 09/07/22 21:38> [facility] Medical History Acute necrosis of pancreas Alcohol use Allergies Anemia Anxiety Arthritis Atrial fibrillation Back problem COVID Depression Dietary restriction Excessive bleeding Gastritis GERD (gastroesophageal reflux disease) History of cardiac murmur History of edema History of renal disease HTN (hypertension) Hyperlipidemia Insulin dependent diabetes mellitus Leg cramps Liver disease Migraine Shortness of breath on exertion Sleep apnea Tubular adenoma of colon Vitamin deficiency Wears glasses Wears partial dentures Home Medications aspirin 81 mg tablet,delayed release 81 mg PO DAILY heart health 07/11/20 [History Last Taken 03/12/22] metoprolol tartrate 25 mg tablet 25 mg PO BID blood pressure 07/11/20 [History Last Taken 03/12/22] multivitamin (Daily Multi-Vitamin tablet) 1 tab PO DAILY vitamin 07/11/20 [History Last Taken 03/12/22] dulaglutide 3 mg/0.5 mL subcutaneous pen injector (Trulicity) 3 mg subcut NOVA DM 12/28/21 [History Last Taken 03/04/22] insulin glargine 100 unit/mL (3 mL) subcutaneous pen (Lantus Solostar U-100 Insulin) 70 unit subcut QHS DM 03/12/22 [History Last Taken 03/11/22] trazodone 100 mg tablet 200 mg PO QHS sleep 03/12/22 [History Last Taken 03/11/22] linaclotide 290 mcg capsule (Linzess) 290 mcg PO DAILY #90 caps 05/01/22 [Rx Last Taken Unknown] ondansetron 4 mg disintegrating tablet 4 mg PO Q8H PRN nausea and vomiting #90 tabs 07/24/22 [Rx Last Taken Unknown] acetaminophen 500 mg tablet 1,000 mg PO BID 08/03/22 [History Last Taken Unknown] amlodipine 2.5 mg tablet 2.5 mg PO DAILY 08/03/22 [History Last Taken Unknown] docusate sodium 100 mg tablet 100 mg PO BID 08/03/22 [History Last Taken Unknown] empagliflozin 10 mg tablet (Jardiance) 10 mg PO DAILY 08/03/22 [History Last Taken Unknown] furosemide 20 mg tablet (Lasix) 20 mg PO DAILY 08/03/22 [History Last Taken Unknown] magnesium oxide 400 mg PO DAILY 08/03/22 [History Last Taken Unknown] metaxalone 400 mg tablet 800 mg PO TID 08/03/22 [History Last Taken Unknown] pantoprazole 40 mg tablet,delayed release 40 mg PO DAILY 08/03/22 [History Last Taken Unknown] rosuvastatin 10 mg tablet 10 mg PO DAILY 08/03/22 [History Last Taken Unknown] celecoxib 200 mg capsule (Celebrex) 200 mg PO DAILY 09/07/22 [History Last Taken Unknown] hydroxyzine HCl 50 mg tablet 100 mg PO Q8 09/07/22 [History Last Taken Unknown] insulin lispro 100 unit/mL subcutaneous pen (Humalog KwikPen (U-100) Insulin) 15 unit subcut TIDCM 09/07/22 [History Last Taken Unknown] pregabalin 75 mg capsule (Lyrica) 75 mg PO QHS 09/07/22 [History Last Taken Unknown] Allergy/AdvReac Type Severity Reaction Status Date / Time lactase [From Dairy Aid] Allergy Severe diarrhea Verified 09/07/22 14:33 codeine Allergy Intermediate mental Verified 09/07/22 14:33 status diphenhydramine Allergy Intermediate mental Verified 09/07/22 14:33 [From Benadryl Allergy] status quetiapine [From Seroquel] Allergy Intermediate about Verified 09/07/22 14:33 killed me - went into DKA morphine Allergy NEEDS Verified 09/07/22 14:33 FOLLOW-UP Family History Other Arthritis Cancer Depression Diabetes Kidney disease Surgical History History of esophagogastroduodenoscopy (EGD) History of hysterectomy Hx of colonoscopy Social History Smoking Status: Never smoker alcohol intake: current ROS <CHARO Virgen - Last Filed: 09/07/22 21:38> ROS ED Constitutional Constitutional ED: Denies chills, fever(s) or sweats Eyes Eyes: Denies blurry vision or change in vision ENT ENT ED: Denies rhinorrhea or sore throat Cardiovascular Cardiovascular: Denies chest pain, palpitations or racing heartbeat Respiratory/Chest Respiratory/Chest: Denies cough, dyspnea, shortness of breath at rest or shortness of breath with exertion Gastrointestinal Gastrointestinal: Denies abdominal pain, constipation, diarrhea, nausea or vomiting Genitourinary Genitourinary ED: Denies dysuria, hematuria or urinary frequency Musculoskeletal Musculoskeletal: Denies myalgias Integumentary Denies abscess, Abrasions or rash Neurologic Neurologic: Denies headache(s), paresthesias or weakness Endocrine Endocrinology: Reports polydipsia; Denies polyphagia or polyuria EXAM <CHARO Virgen - Last Filed: 09/07/22 21:38> Physical Exam Const Vital Signs: 09/07/22 14:30 09/07/22 15:31 09/07/22 16:09 Temperature 97.6 F L Temperature Source Temporal Pulse Rate 87 86 Respiratory Rate 16 16 Respiratory Effort Normal Non-Labored Respiratory Pattern Normal Blood Pressure 146/94 H 139/92 H Blood Pressure Mean 111 107 Pulse Ox 100 99 Oxygen Delivery Method Room Air Room Air 09/07/22 17:00 09/07/22 19:00 09/07/22 20:10 Temperature Temperature Source Pulse Rate 93 99 Respiratory Rate 16 17 Respiratory Effort Respiratory Pattern Blood Pressure 163/95 H 128/91 H 126/74 H Blood Pressure Mean 117 103 91 Pulse Ox 100 Oxygen Delivery Method Room Air Positive well nourished HEENT Reports moist mucous membranes Negative for trauma or tenderness Eyes PERRL and EOMs intact bilaterally Neck supple Resp normal respiratory effort and clear to auscultation bilaterally Auscultation: Negative for rales, rhonchi, wheezes or diminished lung sounds Cardio regular rate, regular rhythm and no murmurs GI normal to inspection, nondistended, normoactive bowel sounds, non-tender and no masses Extremity normal to inspection Neuro oriented x3, CN's II-XII intact bilaterally and no sensory deficits noted Sensorium / Orientation: alert Motor Exam: strength 5/5 throughout Psych mental status grossly normal Skin no rashes or lesions noted, no wounds and skin turgor normal <Dr. Morgan Lowery DO - Last Filed: 09/07/22 21:28> Physical Exam Const Vital Signs: 09/07/22 14:30 09/07/22 15:31 09/07/22 16:09 Temperature 97.6 F L Temperature Source Temporal Pulse Rate 87 86 Respiratory Rate 16 16 Respiratory Effort Normal Non-Labored Respiratory Pattern Normal Blood Pressure 146/94 H 139/92 H Blood Pressure Mean 111 107 Pulse Ox 100 99 Oxygen Delivery Method Room Air Room Air 09/07/22 17:00 09/07/22 19:00 09/07/22 20:10 Temperature Temperature Source Pulse Rate 93 99 Respiratory Rate 16 17 Respiratory Effort Respiratory Pattern Blood Pressure 163/95 H 128/91 H 126/74 H Blood Pressure Mean 117 103 91 Pulse Ox 100 Oxygen Delivery Method Room Air MDM <Janae Carreno PA - Last Filed: 09/07/22 21:38> MDM MDM Narrative Medical decision making narrative: Patient had already received labs this morning so new ones were not necessary. Has a history of poor glucose control. There is no anion gap. She has been given IV fluids and [address] Jeannie Broussard with patient's PCP office was consulted and she stated that the diabetic medication clinic that manages patient's diabetes recently recommended she be taking 70 units of Lantus at night, 17 units of Humalog when blood sugar is less than 150, and 22 units of Humalog when blood sugar is greater than 150. Patient states she has not been doing this and has only been taking 12 to 17 units of Humalog with meals. PCP office said she will be contacted on Saturday to discuss diabetes control. I have instructed her to take the recommended amount of insulin. She is able to discharge home with outpatient insulin management. Attending note: Patient seen and evaluated with technical support representative. I perform my own [id number] evaluation. I agree with the plan of work-up. Sent in by GI for glucose in the 700s. History insulin-dependent diabetes. She states her last mild sugars were in the 500s. Her PCP team upped her Lantus from 55 to 60 units at night. She takes anywhere from 12 to 17 units before meals. States polydipsia. No polyuria. No dysuria. No cough. She sees GI for history of pancreatitis had a pancreatic duct placement has been dislodged. No current abdominal pain. She states she is taking her medications. Exam alert nontoxic patient no acute distress. Moist mucosal membranes. Heart and lungs were normal abdomen soft. Labs evaluated that was obtained earlier glucose in the 700s normal anion gap. She is not in DKA. She has hyperglycemia. She is ordered for IV fluids with 20 units of short acting insulin subcu. Reevaluation after 75 minutes nursing check fingerstick was too high to count therefore BMP was sent glucose 794 Again normal at 7. Order for additional fluids with additional 20 units of insulin. Will reevaluate will need to discuss with her primary team for outpatient insulin management. Lab Data Attestation: I reviewed the patient's lab results. Labs: Laboratory Results - last 24 hr 09/07/22 09/07/22 17:05 17:20 Sodium 133 L Potassium 4.3 Chloride 98 Carbon Dioxide 28.0 Anion Gap 7 BUN 23 H Creatinine 1.26 H Estim Creat Clear Calc 50.31 Est GFR (MDRD) Af Amer 58 L Est GFR (MDRD) Non-Af 48 L BUN/Creatinine Ratio 18.3 Glucose 794 H* Calcium 8.6 POC Glucose > 500 H* <Dr. Morgan Lowery, DO - Last Filed: 09/07/22 21:28> [facility] MDM Narrative Medical decision making narrative: Patient had already received labs this morning so new ones were not necessary. Has a history of poor glucose control. There is no anion gap. She has been given IV fluids and [address] Jeannie Broussard with patient's PCP office was consulted and she stated that the diabetic medication clinic that manages patient's diabetes recently recommended she be taking 70 units of Lantus at night, 17 units of Humalog when blood sugar is less than 150, and 22 units of Humalog when blood sugar is greater than 150. Patient states she has not been doing this and has only been taking 12 to 17 units of Humalog with meals. PCP office said she will be contacted on Saturday to discuss diabetes control. I have instructed her to take the recommended amount of insulin. She is able to discharge home with outpatient insulin management. Attending note: Patient seen and evaluated with technical support representative. I perform my own [id number] evaluation. I agree with the plan of work-up. Sent in by GI for glucose in the 700s. History insulin-dependent diabetes. She states her last mild sugars were in the 500s. Her PCP team upped her Lantus from 55 to 60 units at night. She takes anywhere from 12 to 17 units before meals. States polydipsia. No polyuria. No dysuria. No cough. She sees GI for history of pancreatitis had a pancreatic duct placement has been dislodged. No current abdominal pain. She states she is taking her medications. Exam alert nontoxic patient no acute distress. Moist mucosal membranes. Heart and lungs were normal abdomen soft. Labs evaluated that was obtained earlier glucose in the 700s normal anion gap. She is not in DKA. She has hyperglycemia. She is ordered for IV fluids with 20 units of short acting insulin subcu. Reevaluation after 75 minutes nursing check fingerstick was too high to count therefore BMP was sent glucose 794 Again normal at 7. Order for additional fluids with additional 20 units of insulin. Will reevaluate will need to discuss with her primary team for outpatient insulin management. Reevaluation glucose down to 365. Extended reach out to PCP office, apparently supposed be on 70 units of Lantus and 17 units before meals if blood glucose less than 150 and 22 units if it is higher. She is being followed by the diabetic clinic. They will reach out to her on Saturday. Patient updated on plan of care. Lab Data Labs: Laboratory Results - last 24 hr 09/07/22 09/07/22 17:05 17:20 Sodium 133 L Potassium 4.3 Chloride 98 Carbon Dioxide 28.0 Anion Gap 7 BUN 23 H Creatinine 1.26 H Estim Creat Clear Calc 50.31 Est GFR (MDRD) Af Amer 58 L Est GFR (MDRD) Non-Af 48 L BUN/Creatinine Ratio 18.3 Glucose 794 H* Calcium 8.6 POC Glucose > 500 H* Discharge Plan Triage Chief Complaint: Abn Labs ED Midlevel Provider: Janae Carreno ED Provider: Morgan Lowery Dx/Rx/DC Orders Clinical Impression: Hyperglycemia due to diabetes mellitus, Polydipsia, Stage 3 chronic kidney disease due to type 2 diabetes mellitus Instructions: ED Diabetic Hyperglycemia Prescriptions: No Action aspirin 81 mg tablet,delayed release (DR/EC) 81 mg PO DAILY metoprolol tartrate 25 mg tablet 25 mg PO BID multivitamin [Daily Multi-Vitamin] Tablet 1 tab PO DAILY Trulicity 3 mg/0.5 mL Pen Injector 3 mg SUBCUT NOVA trazodone 100 mg tablet 200 mg PO QHS Label Comments: TAKE 2 TABLETS BY MOUTH ONCE DAILY AT BEDTIME AFTER A MEAL, DIRECTED, NEEDED FOR SLEEP/INSOMNIA insulin glargine [Lantus Solostar U-100 Insulin] 100 unit/mL (3 mL) insulin pen 70 unit SUBCUT QHS metaxalone 400 mg Tablet 800 mg PO TID amlodipine 2.5 mg Tablet 2.5 mg PO DAILY acetaminophen 500 mg Tablet 1,000 mg PO BID pantoprazole 40 mg Tablet,Delayed Release (Dr/Ec) 40 mg PO DAILY furosemide [Lasix] 20 mg Tablet 20 mg PO DAILY docusate sodium 100 mg Tablet 100 mg PO BID rosuvastatin 10 mg Tablet 10 mg PO DAILY Jardiance 10 mg Tablet 10 mg PO DAILY magnesium oxide 400 mg magnesium Tablet 400 mg PO DAILY insulin lispro [Humalog KwikPen Insulin] 100 unit/mL Insulin Pen 15 unit SUBCUT TIDCM celecoxib [Celebrex] 200 mg Capsule 200 mg PO DAILY pregabalin [Lyrica] 75 mg Capsule 75 mg PO QHS hydroxyzine HCl 50 mg Tablet 100 mg PO Q8 Linzess 290 mcg capsule 290 mcg PO DAILY Qty: 90 3RF ondansetron 4 mg tablet,disintegrating 4 mg PO Q8H PRN (Reason: nausea and vomiting) Qty: 90 1RF Primary Care Provider: Migue Silveira Referrals: Migue Silveira DO [Primary Care Provider] - Activity Restrictions/Additional Instructions: Your Diabetic medication clinic recommends the following: Take 70 units of Lantus at night. Take 17 units of Humalog when blood sugar is less than 150 at meals. Take 22 units of Humalog when blood sugar is greater than 150 at meals. Disposition Disposition: Home, Self Care Discharge Date/Time: 09/07/22 20:11
[2022-09-07 15:31] VITALS: BP 139/92; PULSE 86; RESP 16; O2SAT 99
[2022-09-07] MEDS: 0.9% Normal Saline 1,000 ML 999 ML IV ×2 (15:59→17:25)
[2022-09-07] MEDS: Insulin Lispro 100 UNIT/ML INSULN.PEN 20 UNIT SC ×2 (16:00→17:25)
[2022-09-07 17:00] VITALS: BP 163/95; PULSE 93; RESP 16; O2SAT 100
[2022-09-07 17:26] LABS: Bedside Glucose > 500 mg/dL (74-106)
[2022-09-07 17:59] LABS: Anion Gap 7 (5-15); BUN 23 mg/dL (7-18); BUN/Creat Ratio 18.3 RATIO (10-20); Calcium,Total 8.6 mg/dL (8.5-10.1); Chloride 98 mmol/L (98-107); Creatinine, Serum 1.26 mg/dL (0.55-1.02); EST Glomerular Filtration Rate 48 mL/min (>60); Est Glom Filt Rate - Afr Amer 58 mL/min (>60); Estimated Creatinine Clearance 50.31 ml/min; Glucose 794 mg/dL (74-106); Potassium 4.3 mmol/L (3.5-5.1); Sodium Level 133 mmol/L (136-145)
[2022-09-07 19:00] VITALS: BP 128/91; PULSE 99; RESP 17
[2022-09-07 20:10] VITALS: BP 126/74
[2022-09-08 10:16] LABS: Bedside Glucose 365 mg/dL (74-106)
== END 2022-09-07 20:11 | disposition home or self-care (01) ==
PROVIDERS: Emergency Provider Emergency Medicine; PCP Student in an Organized Health Care Education/Training Program; Visit Provider Emergency Medicine
DX: E11.65 Type 2 diabetes mellitus with hyperglycemia (principal); E11.22 Type 2 diabetes mellitus with diabetic chronic kidney disease; I48.91 Unspecified atrial fibrillation; Z79.4 Long term (current) use of insulin; N18.30 Chronic kidney disease, stage 3 unspecified; I12.9 Hypertensive chronic kidney disease with stage 1 through stage 4 chronic kidney disease, or unspecified chronic kidney disease; R63.1 Polydipsia; G47.30 Sleep apnea, unspecified; E78.5 Hyperlipidemia, unspecified; K21.9 Gastro-esophageal reflux disease without esophagitis; Z86.16 Personal history of COVID-19; Z79.899 Other long term (current) drug therapy; Z79.82 Long term (current) use of aspirin
CPT/HCPCS: 80048; 82962; 96360; 96361; 99283; J7030; A4216

== ENCOUNTER → 2022-09-07 | Outpatient (CLI) | payer OTHER, SELFPAY ==
[2022-09-07 11:05] LABS: Absolute Lymphocyte Count 1.93 X10^3/uL (0.83-4.51); Absolute Neutrophil Count 2.6 X10^3/uL (2.0-7.7); Basophil# 0.07 X10^3/uL; Basophil% 1.4 % (0-1); Eosinophil# 0.28 X10^3/uL; Eosinophils% 5.5 % (0-5); Hematocrit 34.4 % (37-47); Lymphocyte # 1.93 X10^3/ul (0.83-4.51); Lymphocyte % 38.1 % (19-41); Mean Corpuscular Hgb 28.9 pg (27.0-32.0); Mean Corpuscular Volume 90.5 fL (81-99); Mean Platelet Vol. 10.4 fl (6.2-12.0); NRBC Flagged by Analyzer 0 % (0-5); Neutrophil # 2.57 X10^3/uL (2.7-7.7); Neutrophil % 50.8 % (47-70); Platelet Count 230 K/mm3 (150-450); RBC Distribution Width CV 13.4 % (11.6-14.6); RBC Distribution Width SD 44.1 fl (35.1-43.9); White Blood Count 5.1 K/mm3 (4.4-11.0)
[2022-09-07 13:14] LABS: ALB/GLOB Ratio 0.8 RATIO (0.9-2.4); AST(SGOT) 18 U/L (15-37); Alanine Aminotransfer ALT/SGPT 26 U/L (13-56); Albumin, Serum 3.1 g/dL (3.2-5.0); Alkaline Phosphatase 128 U/L (45-117); Amylase 45 U/L (25-115); Anion Gap 2 (5-15); BUN 22 mg/dL (7-18); BUN/Creat Ratio 17.6 RATIO (10-20); Calcium,Total 9.1 mg/dL (8.5-10.1); Chloride 95 mmol/L (98-107); Creatinine, Serum 1.25 mg/dL (0.55-1.02); EST Glomerular Filtration Rate 48 mL/min (>60); Est Glom Filt Rate - Afr Amer 58 mL/min (>60); Glucose 742 mg/dL (74-106); Lipase 136 U/L (73-393); Potassium 5.2 mmol/L (3.5-5.1); Protein, Total 7.1 g/dL (6.4-8.2); Sodium Level 129 mmol/L (136-145); Triglycerides 162 mg/dL
== END | disposition home or self-care (01) ==
LOC: LAB 10:43
PROVIDERS: PCP Student in an Organized Health Care Education/Training Program; Referring Provider Internal Medicine Gastroenterology; Visit Provider Internal Medicine Gastroenterology
DX: E11.9 Type 2 diabetes mellitus without complications (principal); K85.90 Acute pancreatitis without necrosis or infection, unspecified; K59.00 Constipation, unspecified
CPT/HCPCS: 36415; 80053; 82150; 83690; 84478; 85025; 86140

== ENCOUNTER 2023-02-06 10:00 | Outpatient (RCR) | payer OTHER, SELFPAY ==
[2023-01-30 08:51] VITALS: BP 147/84; PULSE 85; RESP 18; TEMP 36.4; BMI 35.9
--- NOTE | 2023-01-30 10:33 | PCM.WC.HP ---
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 Patient does not manage her blood sugars well is on insulin for her type II. That is not managed well. Her blood sugars run at least greater than 250. States her A1c is well over 10. She currently sees Dr. lAonso podiatry out of [facility]. Her biggest problem is callusing over her bony prominences of her foot. She has some cracked heels and a crack underneath her great toes. All the wounds seem to be superficial. Patient wears crocs and she also wears no shoes when she is in the house at the fpc. ON LICENSE OF [facility] Medical History Acute necrosis of pancreas Alcohol use Allergies Anemia Anxiety Arthritis Atrial fibrillation Back problem COVID Depression Dietary restriction Excessive bleeding Gastritis GERD (gastroesophageal reflux disease) History of cardiac murmur History of edema History of renal disease HTN (hypertension) Hyperlipidemia Insulin dependent diabetes mellitus Leg cramps Liver disease Migraine Shortness of breath on exertion Sleep apnea Tubular adenoma of colon Vitamin deficiency Wears glasses Wears partial dentures Home Medications aspirin 81 mg tablet,delayed release 81 mg PO DAILY heart health 07/11/20 [History Last Taken 03/12/22] metoprolol tartrate 25 mg tablet 25 mg PO BID blood pressure 07/11/20 [History Last Taken 03/12/22] multivitamin (Daily Multi-Vitamin tablet) 1 tab PO DAILY vitamin 07/11/20 [History Last Taken 03/12/22] dulaglutide 3 mg/0.5 mL subcutaneous pen injector (Trulicity) 3 mg subcut NOVA DM 12/28/21 [History Last Taken 03/04/22] insulin glargine 100 unit/mL (3 mL) subcutaneous pen (Lantus Solostar U-100 Insulin) 70 unit subcut QHS DM 03/12/22 [History Last Taken 03/11/22] trazodone 100 mg tablet 200 mg PO QHS sleep 03/12/22 [History Last Taken 03/11/22] ondansetron 4 mg disintegrating tablet 4 mg PO Q8H PRN nausea and vomiting #90 tabs 07/24/22 [Rx Last Taken Unknown] acetaminophen 500 mg tablet 1,000 mg PO BID 08/03/22 [History Last Taken Unknown] amlodipine 2.5 mg tablet 2.5 mg PO DAILY 08/03/22 [History Last Taken Unknown] docusate sodium 100 mg tablet 100 mg PO BID 08/03/22 [History Last Taken Unknown] empagliflozin 10 mg tablet (Jardiance) 10 mg PO DAILY 08/03/22 [History Last Taken Unknown] furosemide 20 mg tablet (Lasix) 20 mg PO DAILY 08/03/22 [History Last Taken Unknown] magnesium oxide 400 mg PO DAILY 08/03/22 [History Last Taken Unknown] metaxalone 400 mg tablet 800 mg PO TID 08/03/22 [History Last Taken Unknown] pantoprazole 40 mg tablet,delayed release 40 mg PO DAILY 08/03/22 [History Last Taken Unknown] rosuvastatin 10 mg tablet 10 mg PO DAILY 08/03/22 [History Last Taken Unknown] celecoxib 200 mg capsule (Celebrex) 200 mg PO DAILY 09/07/22 [History Last Taken Unknown] hydroxyzine HCl 50 mg tablet 100 mg PO Q8 09/07/22 [History Last Taken Unknown] insulin lispro 100 unit/mL subcutaneous pen (Humalog KwikPen (U-100) Insulin) 15 unit subcut TIDCM 09/07/22 [History Last Taken Unknown] pregabalin 75 mg capsule (Lyrica) 75 mg PO QHS 09/07/22 [History Last Taken Unknown] linaclotide 290 mcg capsule (Linzess) 290 mcg PO DAILY #90 caps 12/04/22 [Rx Last Taken Unknown] Allergy/AdvReac Type Severity Reaction Status Date / Time lactase [From Dairy Aid] Allergy Severe diarrhea Verified 09/07/22 14:33 codeine Allergy Intermediate mental Verified 09/07/22 14:33 status diphenhydramine Allergy Intermediate mental Verified 09/07/22 14:33 [From Benadryl Allergy] status quetiapine [From Seroquel] Allergy Intermediate about Verified 09/07/22 14:33 killed me - went into DKA morphine Allergy NEEDS Verified 09/07/22 14:33 FOLLOW-UP Family History Other Arthritis Cancer Depression Diabetes Kidney disease Surgical History History of esophagogastroduodenoscopy (EGD) History of hysterectomy Hx of colonoscopy Social History Smoking Status: Never smoker alcohol intake: current ROS Constitutional Constitutional: Reports systems reviewed and no addt'l complaints, except as documented Eyes Eyes: Reports systems reviewed and no addt'l complaints, except as documented ENT HEENT: Reports systems reviewed and no addt'l complaints, except as documented Cardiovascular Cardiovascular: Reports systems reviewed and no addt'l complaints, except as documented Respiratory/Chest Respiratory/Chest: Reports systems reviewed and no addt'l complaints, except as documented Gastrointestinal Gastrointestinal: Reports systems reviewed and no addt'l complaints, except as documented Genitourinary Genitourinary: Reports systems reviewed and no addt'l complaints, except as documented Musculoskeletal Musculoskeletal: Reports systems reviewed and no addt'l complaints, except as documented Integumentary Integumentary: Reports wounds and other Details: Callus on heels and hallux and bony prominences of bilateral feet with some open cracks Neurologic Neurologic: Reports systems reviewed and no addt'l complaints, except as documented Psychiatric Psychiatric: Reports systems reviewed and no addt'l complaints, except as documented Endocrine Endocrinology: Reports systems reviewed and no addt'l complaints, except as documented Hematologic/Lymphatic Hematologic/Lymphatic: Reports systems reviewed and no addt'l complaints, except as documented Allergic/Immunologic Allergic/Immunologic: Reports systems reviewed and no addt'l complaints, except as documented Vital Signs Vital Signs Vital Signs: 01/30/23 08:51 Temperature 97.6 F L Temperature Source Temporal Pulse Rate 85 Respiratory Rate 18 Blood Pressure 147/84 H Blood Pressure Mean 105 Weight Weight: 265 lb Body Mass Index (BMI) 35.9 Debridement Note Debridement Note Wound debrided: Right plantar foot DFU Wound Grade/Stage: Stage II Type of Debridement: Excisional debridement Anesthesia Used: 5% Lidocaine Gel Depth: Down to and including healthy tissue and in the subcutaneous layer Percentage of wound debrided: 100 Instrument Used: 7mm curette and #15 blade Tissue Removed: Callus fibrin Severity: Limited To Skin Breakdown Amount of bleeding with debridement: None Bleeding Controlled with: Pressure Patient tolerated procedure: Patient tolerated procedure well Post-Debridement Measurements and Additional Note: Post-Debridement Measurements/Treatment - Nurse 1 - General Ulcer Assessment Start: 01/30/23 08:51 Freq: Status: Active Protocol: EMEKA Activity Type Activity Date Activity User E-sign Co-sign Detail Recorded Client Recorded Date Recorded By Document 01/30/23 08:51 [address] [id number] 01/30/23 09:03 01/30/23 08:51 WC - Today's Visit Information Type of service Initial Visit Arrival Mode Ambulatory Transfer Assistance None Patient Identification Verified (Name & Yes ) Patient Requires Transmission-Based No Precautions Safety Precautions NA Height and Weight Height 6 ft Weight 265 lb Weight in Pounds 265.0 lbs Body Mass Index (BMI) 35.9 BMI Classification Obese BSA - Arnold 2.40 Vital Signs Temperature (97.8 F-99.1 F) 97.6 F L Temperature Source Temporal Pulse Rate (60-100) 85 Respiratory Rate (12-18) 18 Blood Pressure (90/60-120/80) 147/84 H Blood Pressure Mean 105 History Since Last Visit- (Skip if this is Patient's initial visit) Have you changed medications since your No last visit? Any new allergies or adverse reactions No Had a fall/change in ADL's that may No increase risk of falls Signs or symptoms of abuse and/or No neglect since last visit Have you been in the hospital since your No last visit? Has dressing in place as prescribed No Has compression in place as prescribed N/A Has offloadiing in place as prescribed N/A Experienced any changes in pain level or No management Pain Scale: 0-10 Numeric Is Patient Pain Free? Yes - Nurse 1 - General Ulcer Measurement Start: 01/30/23 08:51 Freq: Status: Active Protocol: Activity Type Activity Date Activity User E-sign Co-sign Detail Recorded Client Recorded Date Recorded By Document 01/30/23 08:51 PL [id number] 01/30/23 09:03 01/30/23 08:51 Wound Center Nurse 1 #2 Left Gr Toe -Combined with other wound No -Current Size (cm) - Length 0.3 -Current Size (cm) - Width 1.0 -Current Size (cm) - Depth 0.1 -Total Square Cm 0.30 -Date of Last Picture (Recall this 01/30/23 field) -Photo Taken Yes -Epithelialization None Present -Tunneling No -Undermining/Tunneling No -Circular Undermining No -Classification - Thickness Partial Thickness -Exudate Amt None Present -Granulation Amt None Present (0 %) -Slough/Fibrin Yes -Necrotic Tissue Type Eschar -Texture (Megan-wound Skin Appearance) Callus -Moisture (Megan-wound Skin Appearance) No Abnormality -Temperature (Megan-wound Skin No Abnormality Appearance) (Pt Warm) -Tenderness on Palpation (Megan-wound No Skin Appearance) -Ulcer Cleansing Soap and Water -Anesthetic Used 5% Lidocaine Gel #1 Right Plantar -Combined with other wound No -Current Size (cm) - Length 1.7 -Current Size (cm) - Width 1.5 -Current Size (cm) - Depth 0.1 -Total Square Cm 2.55 -Date of Last Picture (Recall this 01/30/23 field) -Photo Taken Yes -Epithelialization None Present -Tunneling No -Undermining/Tunneling No -Circular Undermining No -Classification - Thickness Partial Thickness -Exudate Amt None Present -Wound Margin Thickened -Granulation Amt None Present (0 %) -Necrotic Tissue Type Eschar -Texture (Megan-wound Skin Appearance) Callus -Moisture (Megan-wound Skin Appearance) No Abnormality -Color (Megan-wound Skin Appearance) No Abnormality -Temperature (Megan-wound Skin No Abnormality Appearance) (Pt Warm) -Tenderness on Palpation (Megan-wound No Skin Appearance) -Ulcer Cleansing Soap and Water -Anesthetic Used 5% Lidocaine Gel WC - Nurse 2 - General Ulcer CM Notes Start: 01/30/23 08:51 Freq: Status: Active Protocol: Activity Type Activity Date Activity User E-sign Co-sign Detail Recorded Client Recorded Date Recorded By Document 01/30/23 09:18 MW [id number] 01/30/23 09:39 MW 01/30/23 09:18 Wound Center Nurse 2 #2 Left Gr Toe -Time 09:20 -Correct Patient Yes -Correct Side, Site, Position Yes -Correct Procedure Yes -Procedure Performed Yes -Type of Procedure Debridement -Clinical Debridement Subcutaneous -Tissue Removed Subcutaneous -Post Debridement (cm) - Length 0.3 -Post Debridement (cm) - Width 1.5 -Post Debridement (cm) - Depth 0.1 -Total Square (Post) (cm) 0.45 -Area of Debridement (cm) - Length 0.3 -Area of Debridement (cm) - Width 1.5 -Total Square (Area) (cm) 0.45 -Tunneling No -Undermining/Tunneling No -Circular Undermining No -Wound/Ulcer Outcome Not Healed -Ulcer Cleansing Rinsed/ Irrigated with Saline -Foul Odor after Cleansing No -Bioengineered Tissue No -Bleeding Controlled with Pressure -Treatment Response Procedure Tolerated Well -Offloading No -Debridement - Subq, 1st 20sq cm Yes #1 Right Plantar -Time 09:21 -Correct Patient Yes -Correct Side, Site, Position Yes -Correct Procedure Yes -Procedure Performed Yes -Type of Procedure Debridement -Clinical Debridement Subcutaneous -Tissue Removed Subcutaneous -Post Debridement (cm) - Length 1.0 -Post Debridement (cm) - Width 0.1 -Post Debridement (cm) - Depth 0.1 -Total Square (Post) (cm) 0.10 -Area of Debridement (cm) - Length 1.0 -Area of Debridement (cm) - Width 0.1 -Total Square (Area) (cm) 0.10 -Tunneling No -Undermining/Tunneling No -Circular Undermining No -Wound/Ulcer Outcome Not Healed -Ulcer Cleansing Rinsed/ Irrigated with Saline -Foul Odor after Cleansing No -Bioengineered Tissue No -Bleeding Controlled with Pressure -Treatment Response Procedure Tolerated Well -Offloading No -Debridement - Subq, 20sq cm No Pain Scale: 0-10 Numeric Is Patient Pain Free? Yes WC - Nurse 3 - General Ulcer D/C NN Start: 01/30/23 08:51 Freq: Status: Active Protocol: Activity Type Activity Date Activity User E-sign Co-sign Detail Recorded Client Recorded Date Recorded By Document 01/30/23 10:03 [facility] [id number] 01/30/23 10:04 [facility] 01/30/23 10:03 Wound Care Center Nurse 3 #2 Left Gr Toe -Ulcer Cleansing Rinsed/ Irrigated with Saline -Foul Odor after Cleansing No -Primary Dressing Applied Aquacel Extra, NonAdherent Contact Layer -Primary Dressing Covered/Secured with Dry Gauze, Secured with Tape -Aquacel Extra 1 #1 Right Plantar -Ulcer Cleansing Rinsed/ Irrigated with Saline -Foul Odor after Cleansing No -Primary Dressing Applied Aquacel Extra, NonAdherent Contact Layer -Primary Dressing Covered/Secured with Dry Gauze, Secured with Tape -Aquacel Extra 0 ble -Tubular Bandage Double Layer -Size of Tubigrip Used Size E -Size E ($) 2 Treatment Response Procedure Tolerated Well Pain Scale: 0-10 Numeric Is Patient Pain Free? Yes WC - Visit Discharge Discharge Condition Stable Ambulatory Status Ambulatory Transportation Private Auto Accompanied by friend Additional Wound Wound debrided: Left lateral great toe DFU Wound Grade/Stage: Stage II Type of Debridement: Excisional debridement Anesthesia Used: 5% Lidocaine Gel Depth: Down to and including healthy tissue Percentage of wound debrided: 100 Instrument Used: 7mm curette and #15 blade Tissue Removed: Callus fibrin Severity: Limited To Skin Breakdown Amount of bleeding with debridement: None Bleeding Controlled with: Pressure Patient tolerated procedure: Patient tolerated procedure well Assessment/Plan Assessment/Plan (1) Diabetic ulcer of foot associated with diabetes mellitus due to underlying condition, limited to breakdown of skin: CODE(S): E08.621 - Diabetes mellitus due to underlying condition with foot ulcer; L97.501 - Non-pressure chronic ulcer of other part of unspecified foot limited to breakdown of skin QUALIFIERS: Diabetic foot ulcer location: other Laterality: right Qualified Code(s): E08.621 - Diabetes mellitus due to underlying condition with foot ulcer; L97.511 - Non-pressure chronic ulcer of other part of right foot limited to breakdown of skin PLAN: Wash right foot with antibacterial soap and water. Apply Aquacel extra to wound cover with Adaptic gauze and tape amLactin cream to all dried areas specially heels Double layer Tubigrip Follow-up in 1 week (2) Polyneuropathy due to type 2 diabetes mellitus: CODE(S): E11.42 - Type 2 diabetes mellitus with diabetic polyneuropathy (3) Uncontrolled diabetes mellitus with hyperglycemia: CODE(S): E11.65 - Type 2 diabetes mellitus with hyperglycemia (4) Diabetic ulcer of foot associated with diabetes mellitus due to underlying condition, limited to breakdown of skin: CODE(S): E08.621 - Diabetes mellitus due to underlying condition with foot ulcer; L97.501 - Non-pressure chronic ulcer of other part of unspecified foot limited to breakdown of skin QUALIFIERS: Diabetic foot ulcer location: toe Laterality: left Qualified Code(s): E08.621 - Diabetes mellitus due to underlying condition with foot ulcer; L97.521 - Non-pressure chronic ulcer of other part of left foot limited to breakdown of skin PLAN: Wash left foot with antibacterial soap apply Aquacel extra to toe with Adaptic over top cover with gauze and tape Double layer Tubigrip to left leg Referral to Dr. Alcala are vascular doctor Off work for 3 days elevate legs Follow-up in 1 week
[2023-02-06 09:46] VITALS: BP 131/78; PULSE 76; RESP 20; TEMP 36.1; BMI 35.9
--- NOTE | 2023-02-06 12:41 | PCM.WC.PN ---
History of Present Illness Date of Service: 02/06/23 Chief Complaint: Right and left DFU ulcers History of Wound: 52-year-old white female that is diabetic works at a [employer] pretty much every day averaging 12 to 16 hours a day. Patient does not manage her blood sugars well is on insulin for her type II. That is not managed well. Her blood sugars run at least greater than 250. States her A1c is well over 10. She currently sees Dr. Alonso podiatry out of [facility]. Her biggest problem is callusing over her bony prominences of her foot. She has some cracked heels and a crack underneath her great toes. All the wounds seem to be superficial. Patient wears crocs and she also wears no shoes when she is in the house at the [employer]. Progress of Wound: Patient was very compliant with her care and she will be discharged today she is to continue using the AmLactin cannot cream to continually clean the dry skin on the bottom of her feet. Subjective Subjective It is very pleased with outcomes Objective Data Objective Data Mostly hers were cracks in skin from not taking care of her feet and they healed over the week with proper dressings and washings. She is now using amLactin cream to the bottom of her feet which is really helped soften up and get rid of the skin. Patient will be discharged from the wound center and she can follow-up as needed Vital Signs: Vital Signs Temp Pulse Resp BP 97 F L 76 20 H 131/78 H 02/06/23 09:46 02/06/23 09:46 02/06/23 09:46 02/06/23 09:46 Weight: 265 lb Body Mass Index (BMI) 35.9 Physical Exam Const alert, oriented x3 and no apparent distress Constitutional Narrative: Obese, middle-aged white female sitting up in bed, appears much older than stated age, appears comfortable and nontoxic, nursing at bedside, at bedside General Appearance: cooperative, comfortable, well kempt and well developed Exam Limitations: no limitations Nutritional Appearance: obese HEENT normocephalic, head/scalp atraumatic, hearing grossly normal bilaterally and moist oral mucous membranes HEENT Narrative: Mallampati 2-3, no thrush, Dobbhoff in right nares Eyes PERRL, EOMs intact bilaterally and no scleral icterus; Negative for conjunctivae normal Eyes Narrative: Mildly pale conjunctiva bilaterally, no scleral icterus Neck no lymphadenopathy, supple and no JVD Neck Narrative: Trachea midline, no thyroid enlargement General: trachea midline Lymph Lymphatic: no lymphadenopathy noted Resp normal respiratory effort, no retractions, no use of accessory muscles and clear to auscultation bilaterally Resp Narrative: Diminished at bases bilaterally but otherwise clear Effort and Inspection: able to speak in complete sentences and symmetric chest movement Auscultation: Negative for crackles, rales, rhonchi or wheezes Cardio regular rate, regular rhythm, S1 normal heart sound, S2 normal heart sound, no murmurs, no rub, no gallops, no clicks and no JVD Rate: tachycardic GI normal to inspection, nondistended, normoactive bowel sounds, soft to palpation and non-distended GI Narrative: Tenderness in the epigastric and left upper quadrant during palpation Inspection: abdominal distention Auscultation: hypoactive bowel sounds Palpation: firm and tender epigastric, LUQ and RUQ Extremity normal to inspection, full ROM and no clubbing, cyanosis or edema Skin no rashes or lesions noted, no wounds, skin turgor normal, no jaundice, no petechiae and no mottling Skin Narrative: PICC right upper extremity-clean and dry with intact dressing, scattered ecchymosis from phlebotomy and PICC placement, skin is slightly pale General Skin Exam: turgor normal Neuro oriented x3, CN's II-XII intact bilaterally, moves all extremities, no focal motor deficits and no sensory deficits noted Sensorium / Orientation: awake and alert Speech: speech normal Psych affect normal Psych Narrative: Anxious but appropriate Debridement Note Debridement Note No debridement was completed: No debridement was completed today Post-Debridement Measurements and Additional Note: Post-Debridement Measurements/Treatment - Nurse 1 - General Ulcer Assessment Start: 01/30/23 08:51 Freq: Status: Active Protocol: EMEKA Activity Type Activity Date Activity User E-sign Co-sign Detail Recorded Client Recorded Date Recorded By Document 01/30/23 08:51 PL [id number] 01/30/23 09:03 PL Document 02/06/23 09:46 DL [id number] 02/06/23 09:53 DL 01/30/23 02/06/23 08:51 09:46 - Today's Visit Information Type of service Initial Visit Follow-up Visit (Physician/COMMUNITY AIDE ) Arrival Mode Ambulatory Ambulatory Transfer Assistance None None Patient Identification Verified (Name & Yes Yes ) Patient Requires Transmission-Based No No Precautions Safety Precautions NA Height and Weight Height 6 ft Weight 265 lb Weight in Pounds 265.0 lbs Body Mass Index (BMI) 35.9 35.9 BMI Classification Obese Obese BSA - Arnold 2.40 Vital Signs Temperature (97.8 F-99.1 F) 97.6 F L 97 F L Temperature Source Temporal Temporal Pulse Rate (60-100) 85 76 Pulse Location Monitor Respiratory Rate (12-18) 18 20 H Respiratory rate source Observation Blood Pressure (90/60-120/80) 147/84 H 131/78 H Blood Pressure Mean (mm Hg) 105 95 Source Monitor History Since Last Visit- (Skip if this is Patient's initial visit) Have you changed medications since your No No last visit? Any new allergies or adverse reactions No No Had a fall/change in ADL's that may No No increase risk of falls Signs or symptoms of abuse and/or No No neglect since last visit Have you been in the hospital since your No No last visit? Has dressing in place as prescribed No Yes Has compression in place as prescribed N/A N/A Has offloadiing in place as prescribed N/A Yes Experienced any changes in pain level or No No management Pain Scale: 0-10 Numeric Is Patient Pain Free? Yes Yes WC - Nurse 1 - General Ulcer Measurement Start: 01/30/23 08:51 Freq: Status: Active Protocol: Activity Type Activity Date Activity User E-sign Co-sign Detail Recorded Client Recorded Date Recorded By Document 01/30/23 08:51 PL [id number] 01/30/23 09:03 PL Document 02/06/23 09:46 DL [id number] 02/06/23 09:53 DL 01/30/23 02/06/23 08:51 09:46 Wound Center Nurse 1 #2 Left Gr Toe -Combined with other wound No -Current Size (cm) - Length 0.3 0.1 -Current Size (cm) - Width 1.0 0.1 -Current Size (cm) - Depth 0.1 0.1 -Total Square Cm 0.30 0.01 -Date of Last Picture (Recall this 01/30/23 field) -Photo Taken Yes No -Epithelialization None Present -Tunneling No -Undermining/Tunneling No -Circular Undermining No -Classification - Thickness Partial Thickness -Exudate Amt None Present None Present -Wound Margin Thickened -Granulation Amt None Present (0 Large (67-100%) %) -Granulation Quality Pale -Slough/Fibrin Yes -Necrosis Amt None Present (0 %) -Necrotic Tissue Type Eschar -Structure Exposed N/A -Texture (Megan-wound Skin Appearance) Callus Callus -Moisture (Megan-wound Skin Appearance) No Abnormality Dry/Scaly -Color (Megan-wound Skin Appearance) No Abnormality -Temperature (Megan-wound Skin No Abnormality No Abnormality Appearance) (Pt Warm) (Pt Warm) -Tenderness on Palpation (Megan-wound No No Skin Appearance) -Ulcer Cleansing Soap and Water Soap and Water -Foul Odor after Cleansing No -Anesthetic Used 5% Lidocaine 5% Lidocaine Gel Gel #1 Right Plantar -Combined with other wound No -Current Size (cm) - Length 1.7 0.1 -Current Size (cm) - Width 1.5 0.1 -Current Size (cm) - Depth 0.1 0.1 -Total Square Cm 2.55 0.01 -Date of Last Picture (Recall this 01/30/23 field) -Photo Taken Yes No -Epithelialization None Present -Tunneling No -Undermining/Tunneling No -Circular Undermining No -Classification - Thickness Partial Thickness -Exudate Amt None Present None Present -Wound Margin Thickened Thickened -Granulation Amt None Present (0 Large (67-100%) %) -Granulation Quality Pale -Necrosis Amt Small (1-33%) -Necrotic Tissue Type Eschar -Structure Exposed N/A -Texture (Megan-wound Skin Appearance) Callus Callus -Moisture (Megan-wound Skin Appearance) No Abnormality Dry/Scaly -Color (Megan-wound Skin Appearance) No Abnormality No Abnormality -Temperature (Megan-wound Skin No Abnormality No Abnormality Appearance) (Pt Warm) (Pt Warm) -Tenderness on Palpation (Megan-wound No Yes Skin Appearance) -Ulcer Cleansing Soap and Water Soap and Water -Foul Odor after Cleansing No -Anesthetic Used 5% Lidocaine 5% Lidocaine Gel Gel Right Calf (cm) 43.5 Right Ankle (cm) 29.2 Left Calf (cm) 44 Left Ankle (cm) 33.3 WC - Nurse 2 - General Ulcer CM Notes Start: 01/30/23 08:51 Freq: Status: Active Protocol: Activity Type Activity Date Activity User E-sign Co-sign Detail Recorded Client Recorded Date Recorded By Document 01/30/23 09:18 MW [id number] 01/30/23 09:39 MW Document 02/06/23 10:06 MW [id number] 02/06/23 10:07 MW 01/30/23 02/06/23 09:18 10:06 Wound Center Nurse 2 #2 Left Gr Toe -Time 09:20 10:06 -Correct Patient Yes Yes -Correct Side, Site, Position Yes Yes -Correct Procedure Yes Yes -Procedure Performed Yes No -Type of Procedure Debridement -Clinical Debridement Subcutaneous -Tissue Removed Subcutaneous -Post Debridement (cm) - Length 0.3 0 -Post Debridement (cm) - Width 1.5 0 -Post Debridement (cm) - Depth 0.1 0 -Total Square (Post) (cm) 0.45 0 -Area of Debridement (cm) - Length 0.3 -Area of Debridement (cm) - Width 1.5 -Total Square (Area) (cm) 0.45 -Tunneling No -Undermining/Tunneling No -Circular Undermining No -Wound/Ulcer Outcome Not Healed Healed- Epithelialized -Ulcer Cleansing Rinsed/ Irrigated with Saline -Foul Odor after Cleansing No -Bioengineered Tissue No -Bleeding Controlled with Pressure -Treatment Response Procedure Tolerated Well -Offloading No -Debridement - Subq, 1st 20sq cm Yes #1 Right Plantar -Time 09:21 10:07 -Correct Patient Yes Yes -Correct Side, Site, Position Yes Yes -Correct Procedure Yes Yes -Procedure Performed Yes No -Type of Procedure Debridement -Clinical Debridement Subcutaneous -Tissue Removed Subcutaneous -Post Debridement (cm) - Length 1.0 0 -Post Debridement (cm) - Width 0.1 0 -Post Debridement (cm) - Depth 0.1 0 -Total Square (Post) (cm) 0.10 0 -Area of Debridement (cm) - Length 1.0 -Area of Debridement (cm) - Width 0.1 -Total Square (Area) (cm) 0.10 -Tunneling No -Undermining/Tunneling No -Circular Undermining No -Wound/Ulcer Outcome Not Healed Healed- Epithelialized -Ulcer Cleansing Rinsed/ Irrigated with Saline -Foul Odor after Cleansing No -Bioengineered Tissue No -Bleeding Controlled with Pressure -Treatment Response Procedure Tolerated Well -Offloading No -Debridement - Subq, 1st 20sq cm No Pain Scale: 0-10 Numeric Is Patient Pain Free? Yes Yes - Nurse 3 - General Ulcer D/C NN Start: 01/30/23 08:51 Freq: Status: Active Protocol: Activity Type Activity Date Activity User E-sign Co-sign Detail Recorded Client Recorded Date Recorded By Document 01/30/23 10:03 [facility] [id number] 01/30/23 10:04 BMF Document 02/06/23 10:08 MW [id number] 02/06/23 10:09 MW 01/30/23 02/06/23 10:03 10:08 Wound Care Center Nurse 3 #2 Left Gr Toe -Ulcer Cleansing Rinsed/ Irrigated with Saline -Foul Odor after Cleansing No -Primary Dressing Applied Aquacel Extra, NonAdherent Contact Layer -Primary Dressing Covered/Secured with Dry Gauze, Secured with Tape -Aquacel Extra 1 #1 Right Plantar -Ulcer Cleansing Rinsed/ Irrigated with Saline -Foul Odor after Cleansing No -Primary Dressing Applied Aquacel Extra, NonAdherent Contact Layer -Primary Dressing Covered/Secured with Dry Gauze, Secured with Tape -Aquacel Extra 0 ble -Lotion applied to leg before No compression wrap -Tubular Bandage Double Layer -Size of Tubigrip Used Size E -Size E ($) 2 -Stockings Yes Treatment Response Procedure Procedure Tolerated Well Tolerated Well Pain Scale: 0-10 Numeric Is Patient Pain Free? Yes Yes Teaching: Wound Center Discharge Instructions -Person Taught Patient -Teaching Method Demonstration -Response to teaching Verbalize understanding WC - Visit Discharge Discharge Condition Stable Stable Ambulatory Status Ambulatory Ambulatory Transportation Private Auto Private Auto Accompanied by friend self Medication Reconcilliation completed & No provided to patient/care provider Clinical Summary of Care Provided Yes Assessment/Plan Assessment/Plan (1) Diabetic ulcer of foot associated with diabetes mellitus due to underlying condition, limited to breakdown of skin: CODE(S): E08.621 - Diabetes mellitus due to underlying condition with foot ulcer; L97.501 - Non-pressure chronic ulcer of other part of unspecified foot limited to breakdown of skin QUALIFIERS: Diabetic foot ulcer location: other Laterality: right Qualified Code(s): E08.621 - Diabetes mellitus due to underlying condition with foot ulcer; L97.511 - Non-pressure chronic ulcer of other part of right foot limited to breakdown of skin (2) Polyneuropathy due to type 2 diabetes mellitus: CODE(S): E11.42 - Type 2 diabetes mellitus with diabetic polyneuropathy (3) Uncontrolled diabetes mellitus with hyperglycemia: CODE(S): E11.65 - Type 2 diabetes mellitus with hyperglycemia (4) Diabetic ulcer of foot associated with diabetes mellitus due to underlying condition, limited to breakdown of skin: CODE(S): E08.621 - Diabetes mellitus due to underlying condition with foot ulcer; L97.501 - Non-pressure chronic ulcer of other part of unspecified foot limited to breakdown of skin QUALIFIERS: Diabetic foot ulcer location: toe Laterality: left Qualified Code(s): E08.621 - Diabetes mellitus due to underlying condition with foot ulcer; L97.521 - Non-pressure chronic ulcer of other part of left foot limited to breakdown of skin PLAN: Discharge from the wound center follow-up as needed
== END 2023-02-06 15:38 | disposition home or self-care (01) ==
LOC: WC 10:00
PROVIDERS: PCP Student in an Organized Health Care Education/Training Program; Referring Provider Student in an Organized Health Care Education/Training Program; Visit Provider Nurse Practitioner
DX: E11.621 Type 2 diabetes mellitus with foot ulcer (principal); L97.511 Non-pressure chronic ulcer of other part of right foot limited to breakdown of skin; E11.65 Type 2 diabetes mellitus with hyperglycemia; E11.42 Type 2 diabetes mellitus with diabetic polyneuropathy; Z79.4 Long term (current) use of insulin; Z79.82 Long term (current) use of aspirin; I10 Essential (primary) hypertension; Z79.899 Other long term (current) drug therapy; F32.A Depression, unspecified; F41.9 Anxiety disorder, unspecified; K21.9 Gastro-esophageal reflux disease without esophagitis; G47.30 Sleep apnea, unspecified
CPT/HCPCS: 11042; 99203; 99212; G0463

== ENCOUNTER 2023-03-27 10:15 | Outpatient (RCR) | payer OTHER, SELFPAY ==
[2023-03-20 10:04] VITALS: BP 151/83; PULSE 79; RESP 16; TEMP 35.6; BMI 37.7
--- NOTE | 2023-03-20 12:45 | PCM.WC.PN ---
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 Patient does not manage her blood sugars well is on insulin for her type II. That is not managed well. Her blood sugars run at least greater than 250. States her A1c is well over 14. She currently sees Dr. Alonso podiatry out of [facility]. Her biggest problem is callusing over her bony prominences of her foot. She has some cracked heels and a crack underneath her great toes. All the wounds seem to be superficial. Patient wears crocs and she also wears no shoes when she is in the house at the senior living. Since the last time I saw her she has developed an ulcer under her right great toe that has positive depth. Looks like it was a blister that has opened. We will obtain cultures at this time. Patient does complain of pain up in her lower extremity but has a lot of edema. Subjective Subjective Patient is on insulin and was taken off the is GLP-1's not sure why. Patient's blood sugars are uncontrolled and now we have an issue with her right great toe. Objective Data Objective Data Right great toe is very callused around it positive open area with depth. Still has fissures and cracked areas on sole of the bilateral lower heels and foot again we discussed she should be applying AmLactin cream twice a day under her socks. So today we will culture and dressing changes of daily with Aquacel extra to the wound base and put her in postop shoe and also get her some foot cover so she can wear regular shoes while in with the patient care area. Vital Signs: Vital Signs Temp Pulse Resp BP O2 Del Method 96.1 F L 79 16 151/83 H Room Air 03/20/23 10:03/20/23 10:04 03/20/23 10:04 03/20/23 10:04 03/20/23 10:04 Oxygen Delivery Method Room Air Weight: 263 lb Body Mass Index (BMI) 37.7 Physical Exam Const alert, oriented x3 and no apparent distress Constitutional Narrative: Obese, middle-aged white female sitting up in bed, appears much older than stated age, appears comfortable and nontoxic, nursing at bedside, at bedside General Appearance: cooperative, comfortable, well kempt and well developed Exam Limitations: no limitations Nutritional Appearance: obese HEENT normocephalic, head/scalp atraumatic, hearing grossly normal bilaterally and moist oral mucous membranes HEENT Narrative: Mallampati 2-3, no thrush, Dobbhoff in right nares Eyes PERRL, EOMs intact bilaterally and no scleral icterus; Negative for conjunctivae normal Eyes Narrative: Mildly pale conjunctiva bilaterally, no scleral icterus Neck no lymphadenopathy, supple and no JVD Neck Narrative: Trachea midline, no thyroid enlargement General: trachea midline Lymph Lymphatic: no lymphadenopathy noted Resp normal respiratory effort, no retractions, no use of accessory muscles and clear to auscultation bilaterally Resp Narrative: Diminished at bases bilaterally but otherwise clear Effort and Inspection: able to speak in complete sentences and symmetric chest movement Auscultation: Negative for crackles, rales, rhonchi or wheezes Cardio regular rate, regular rhythm, S1 normal heart sound, S2 normal heart sound, no murmurs, no rub, no gallops, no clicks and no JVD Rate: tachycardic GI normal to inspection, nondistended, normoactive bowel sounds, soft to palpation and non-distended GI Narrative: Tenderness in the epigastric and left upper quadrant during palpation Inspection: abdominal distention Auscultation: hypoactive bowel sounds Palpation: firm and tender epigastric, LUQ and RUQ Extremity normal to inspection and full ROM; Negative for no pedal edema Skin Skin Narrative: Right great toe open wound. Fissures and cracks and bottom of right and left foot and heel area. lateral lower extremities all edematous General Skin Exam: turgor normal Wounds: wounds noted Wound Narrative: Open wound or DFU right great toe Neuro oriented x3, CN's II-XII intact bilaterally, moves all extremities, no focal motor deficits and no sensory deficits noted Sensorium / Orientation: awake and alert Speech: speech normal Psych affect normal Psych Narrative: Anxious but appropriate Debridement Note Debridement Note Wound debrided: Right great toe DFU Wound Grade/Stage: Stage II Type of Debridement: Excisional debridement Anesthesia Used: 5% Lidocaine Gel Depth: Down to and including healthy tissue Percentage of wound debrided: 100 Instrument Used: 7mm curette and - (Nippers) Tissue Removed: Callus devitalized tissue slough Severity: Limited To Skin Breakdown Amount of bleeding with debridement: Mild Bleeding Controlled with: Compression and gauze Patient tolerated procedure: Patient tolerated procedure well Post-Debridement Measurements and Additional Note: Post-Debridement Measurements/Treatment - Nurse 1 - General Ulcer Assessment Start: 03/20/23 09:58 Freq: Status: Active Protocol: EMEKA Activity Type Activity Date Activity User E-sign Co-sign Detail Recorded Client Recorded Date Recorded By Document 03/20/23 10:04 [facility] [id number] 03/20/23 10:18 [facility] 03/20/23 10:04 WC - Today's Visit Information Type of service Initial Visit Arrival Mode Ambulatory Transfer Assistance None Patient Identification Verified (Name & Yes ) Height and Weight Height 5 ft 10 in Weight 263 lb Weight in Pounds 263.0 lbs Weight Measurement Method Estimated by Patient Body Mass Index (BMI) 37.7 BMI Classification Obese BSA - Arnold 2.34 Vital Signs Temperature (97.8 F-99.1 F) 96.1 F L Temperature Source Temporal Pulse Rate (60-100) 79 Pulse Location Monitor Respiratory Rate (12-18) 16 Respiratory rate source Observation Oxygen Delivery Method Room Air Blood Pressure (90/60-120/80) 151/83 H Blood Pressure Mean (mm Hg) 105 Source Monitor Position Sitting Blood Pressure Location Right Arm History Since Last Visit- (Skip if this is Patient's initial visit) Left Footwear Regular Shoe Right Footwear Regular Shoe Pain Scale: 0-10 Numeric Is Patient Pain Free? Yes Lower Extremity Assessment/ Foot Assessment/ Toe Nail Assessment Right -Posterior Tibial Doppler Monophasic -Dorsalis Pedis Doppler Monophasic -Extremity Color Pale -Hair Growth on Legs Yes -Hair Growth on Toes No -Temperature of Extremity Warm -Other Deformity No -Prior Foot Ulcer No -Charcot Joint No -Prior Amputation No -Thick Yes -Discolored Yes -Deformed No -Improper Length & Hygeine No Left -Posterior Tibial Doppler Monophasic -Dorsalis Pedis Doppler Monophasic -Extremity Color Pale -Hair Growth on Legs Yes -Hair Growth on Toes No -Temperature of Extremity Warm -Other Deformity No -Prior Foot Ulcer No -Charcot Joint No -Prior Amputation No -Thick Yes -Discolored Yes -Deformed No -Improper Length & Hygeine No WC - Nurse 1 - General Ulcer Measurement Start: 03/20/23 09:58 Freq: Status: Active Protocol: Activity Type Activity Date Activity User E-sign Co-sign Detail Recorded Client Recorded Date Recorded By Document 03/20/23 10:04 [facility] [id number] 03/20/23 10:18 [facility] 03/20/23 10:04 Wound Center Nurse 1 #3- R GR TOE PLANTAR -Combined with other wound No -Current Size (cm) - Length 0.8 -Current Size (cm) - Width 1.2 -Current Size (cm) - Depth 0.3 -Total Square Cm 0.96 -Date of Last Picture (Recall this 03/20/23 field) -Photo Taken Yes -Tunneling No -Undermining/Tunneling No -Circular Undermining No -Exudate Amt Medium -Exudate Type Serosanguineous -Wound Margin Distinct, Outline Attached -Granulation Amt Medium (34-66%) -Granulation Quality Waterflow -Slough/Fibrin Yes -Necrosis Amt Medium (34-66%) -Necrotic Tissue Type Adherent Slough -Texture (Megan-wound Skin Appearance) Assessed, Scarring -Moisture (Megan-wound Skin Appearance) Assessed, Maceration -Color (Megan-wound Skin Appearance) Assessed -Temperature (Megan-wound Skin No Abnormality Appearance) (Pt Warm) -Tenderness on Palpation (Megan-wound No Skin Appearance) -Ulcer Cleansing Rinsed/ Irrigated with Saline -Foul Odor after Cleansing No -Anesthetic Used 5% Lidocaine Gel Lower Limb Edema Present Yes Right Calf (cm) 45.6 Right Ankle (cm) 31.4 Left Calf (cm) 47.6 Left Ankle (cm) 32.9 WC - Nurse 2 - General Ulcer CM Notes Start: 03/20/23 09:58 Freq: Status: Active Protocol: Activity Type Activity Date Activity User E-sign Co-sign Detail Recorded Client Recorded Date Recorded By Document 03/20/23 10:36 [facility] [id number] 03/20/23 10:49 MW 03/20/23 10:36 Wound Center Nurse 2 #3- R GR TOE PLANTAR -Time 10:37 -Correct Patient Yes -Correct Side, Site, Position Yes -Correct Procedure Yes -Procedure Performed Yes -Type of Procedure Debridement -Clinical Debridement Subcutaneous -Tissue Removed Subcutaneous -Post Debridement (cm) - Length 2.5 -Post Debridement (cm) - Width 3.5 -Post Debridement (cm) - Depth 0.2 -Total Square (Post) (cm) 8.75 -Area of Debridement (cm) - Length 2.5 -Area of Debridement (cm) - Width 3.5 -Total Square (Area) (cm) 8.75 -Tunneling No -Undermining/Tunneling No -Circular Undermining No -Wound/Ulcer Outcome Not Healed -Ulcer Cleansing Rinsed/ Irrigated with Saline -Foul Odor after Cleansing No -Bioengineered Tissue No -Bleeding Controlled with Pressure -Treatment Response Procedure Tolerated Well -Offloading No -Debridement - Subq, 1st 20sq cm Yes Pain Scale: 0-10 Numeric Is Patient Pain Free? Yes - Nurse 3 - General Ulcer D/C NN Start: 03/20/23 09:58 Freq: Status: Active Protocol: Activity Type Activity Date Activity User E-sign Co-sign Detail Recorded Client Recorded Date Recorded By Document 03/20/23 11:11 [facility] [id number] 03/20/23 11:12 [facility] 03/20/23 11:11 Wound Care Center Nurse 3 #3- R GR TOE PLANTAR -Ulcer Cleansing Rinsed/ Irrigated with Saline -Negative Pressure Wound Therapy N/A -Primary Dressing Applied Fibracol Plus 4x4,NonAdherent Contact Layer -Primary Dressing Covered/Secured with Dry Gauze, Secured with Tape -Fibracol Plus 4x4 1 BLE -Tubular Bandage Double Layer -Size of Tubigrip Used Size E -Size E ($) 2 Treatment Response Procedure Tolerated Well Pain Scale: 0-10 Numeric Is Patient Pain Free? Yes - Visit Discharge Discharge Condition Stable Ambulatory Status Ambulatory Transportation Private Auto Assessment/Plan Assessment/Plan (1) Diabetic ulcer of foot associated with diabetes mellitus due to underlying condition, limited to breakdown of skin: CODE(S): E08.621 - Diabetes mellitus due to underlying condition with foot ulcer; L97.501 - Non-pressure chronic ulcer of other part of unspecified foot limited to breakdown of skin QUALIFIERS: Diabetic foot ulcer location: toe Laterality: left Qualified Code(s): E08.621 - Diabetes mellitus due to underlying condition with foot ulcer; L97.521 - Non-pressure chronic ulcer of other part of left foot limited to breakdown of skin (2) Uncontrolled diabetes mellitus with hyperglycemia: CODE(S): E11.65 - Type 2 diabetes mellitus with hyperglycemia PLAN: Wash feet with antibacterial soap and water like Dial apply fibrin call to right great toe Adaptic and dressing We will also apply for a EpiFix and contact patient Obtain cultures from wound base Double layer Tubigrip to bilateral lower legs Applied a postop shoe to right foot Also gave her foot covers for in-house wearing of shoes Follow-up in 1 week (3) Diabetic foot ulcer associated with type 2 diabetes mellitus: CODE(S): E11.621 - Type 2 diabetes mellitus with foot ulcer; L97.509 - Non-pressure chronic ulcer of other part of unspecified foot with unspecified severity
[2023-03-27 10:16] VITALS: BP 104/63; PULSE 71; RESP 18; TEMP 36.4; BMI 37.7
--- NOTE | 2023-03-27 12:12 | PCM.WC.PN ---
History of Present Illness Date of Service: 03/27/23 Chief Complaint: Right and left DFU ulcers History of Wound: 52-year-old white female that is diabetic works at a [employer] pretty much every day averaging 12 to 16 hours a day. Patient does not manage her blood sugars well is on insulin for her type II. That is not managed well. Her blood sugars run at least greater than 250. States her A1c is well over 14. She currently sees Dr. Alonso podiatry out of [facility]. Her biggest problem is callusing over her bony prominences of her foot. She has some cracked heels and a crack underneath her great toes. All the wounds seem to be superficial. Patient wears crocs and she also wears no shoes when she is in the house at the [employer]. Since the last time I saw her she has developed an ulcer under her right great toe that has positive depth. Looks like it was a blister that has opened. We will obtain cultures at this time. Patient does complain of pain up in her lower extremity but has a lot of edema. Progress of Wound: Right great toe is actually improving with the Fibracol and Adaptic. Cultures were positive and started on doxycycline twice a day. Still developing a lot of callus around the wound base but looks good. Subjective Subjective Patient states she is trying to get a hold of an medical certification specialist around [place]. Objective Data Objective Data We will hold off on the epi fix for now until the infection is better and her A1c has come down to more of a normal from 14. Vital Signs: Vital Signs Temp Pulse Resp BP O2 Del Method 97.6 F L 71 18 104/63 Room Air 03/27/23 10:16 03/27/23 10:16 03/27/23 10:16 03/27/23 10:16 03/20/23 10:04 Oxygen Delivery Method Room Air Weight: 263 lb Body Mass Index (BMI) 37.7 Lab / Micro Data Attestation: I reviewed the patient's lab results. Micro: Microbiology 03/20/23 10:40 Wound Abcess - Toe Gram Stain - Final 03/20/23 10:40 Wound Abcess - Toe Wound Culture - Final Proteus mirabilis Klebsiella pneumoniae sp pneum Staphylococcus aureus Streptococcus agalactiae (B) 03/20/23 10:40 Wound Abcess - Toe Anaerobic Culture - Final No anaerobic bacteria isolated. Physical Exam Const alert, oriented x3 and no apparent distress Constitutional Narrative: Obese, middle-aged white female sitting up in bed, appears much older than stated age, appears comfortable and nontoxic, nursing at bedside, at bedside General Appearance: cooperative, comfortable, well kempt and well developed Exam Limitations: no limitations Nutritional Appearance: obese HEENT normocephalic, head/scalp atraumatic, hearing grossly normal bilaterally and moist oral mucous membranes HEENT Narrative: Mallampati 2-3, no thrush, Dobbhoff in right nares Eyes PERRL, EOMs intact bilaterally and no scleral icterus; Negative for conjunctivae normal Eyes Narrative: Mildly pale conjunctiva bilaterally, no scleral icterus Neck no lymphadenopathy, supple and no JVD Neck Narrative: Trachea midline, no thyroid enlargement General: trachea midline Lymph Lymphatic: no lymphadenopathy noted Resp normal respiratory effort, no retractions, no use of accessory muscles and clear to auscultation bilaterally Resp Narrative: Diminished at bases bilaterally but otherwise clear Effort and Inspection: able to speak in complete sentences and symmetric chest movement Auscultation: Negative for crackles, rales, rhonchi or wheezes Cardio regular rate, regular rhythm, S1 normal heart sound, S2 normal heart sound, no murmurs, no rub, no gallops, no clicks and no JVD Rate: tachycardic GI normal to inspection, nondistended, normoactive bowel sounds, soft to palpation and non-distended GI Narrative: Tenderness in the epigastric and left upper quadrant during palpation Inspection: abdominal distention Auscultation: hypoactive bowel sounds Palpation: firm and tender epigastric, LUQ and RUQ Extremity normal to inspection and full ROM; Negative for no pedal edema Skin Skin Narrative: Right great toe open wound. Fissures and cracks and bottom of right and left foot and heel area. lateral lower extremities all edematous General Skin Exam: turgor normal Wounds: wounds noted Wound Narrative: Open wound or DFU right great toe Neuro oriented x3, CN's II-XII intact bilaterally, moves all extremities, no focal motor deficits and no sensory deficits noted Sensorium / Orientation: awake and alert Speech: speech normal Psych affect normal Psych Narrative: Anxious but appropriate Debridement Note Debridement Note Wound debrided: Right great toe plantar side Wound Grade/Stage: DFU stage II Type of Debridement: Excisional debridement Anesthesia Used: 5% Lidocaine Gel Depth: Down to and including healthy tissue and in the subcutaneous layer Percentage of wound debrided: 100 Instrument Used: 7mm curette and #15 blade Tissue Removed: Callus and fibrin Severity: Fat Layer Exposed Amount of bleeding with debridement: Mild Bleeding Controlled with: Compression and gauze Patient tolerated procedure: Patient tolerated procedure well Post-Debridement Measurements and Additional Note: Post-Debridement Measurements/Treatment - Nurse 1 - General Ulcer Assessment Start: 03/20/23 09:58 Freq: Status: Active Protocol: EMEKA Activity Type Activity Date Activity User E-sign Co-sign Detail Recorded Client Recorded Date Recorded By Document 03/20/23 10:04 [facility] [id number] 03/20/23 10:18 BM Document 03/27/23 10:16 PL [id number] 03/27/23 10:23 PL 03/20/23 03/27/23 10:04 10:16 - Today's Visit Information Type of service Initial Visit Follow-up Visit (Physician/BARREL [facility] ) Arrival Mode Ambulatory Ambulatory Transfer Assistance None None Patient Identification Verified (Name & Yes Yes ) Patient Requires Transmission-Based No Precautions Safety Precautions NA Finger Stick Blood Sugar(mg/dl) (if 250 indicated): Blood Sugar Stated by Patient Height and Weight Height 5 ft 10 in Weight 263 lb Weight in Pounds 263.0 lbs Weight Measurement Method Estimated by Patient Body Mass Index (BMI) 37.7 37.7 BMI Classification Obese Obese BSA - Arnold 2.34 Vital Signs Temperature (97.8 F-99.1 F) 96.1 F L 97.6 F L Temperature Source Temporal Temporal Pulse Rate (60-100) 79 71 Pulse Location Monitor Respiratory Rate (12-18) 16 18 Respiratory rate source Observation Oxygen Delivery Method Room Air Blood Pressure (90/60-120/80) 151/83 H 104/63 Blood Pressure Mean (mm Hg) 105 76 Source Monitor Position Sitting Blood Pressure Location Right Arm History Since Last Visit- (Skip if this is Patient's initial visit) Have you changed medications since your No last visit? Any new allergies or adverse reactions No Had a fall/change in ADL's that may No increase risk of falls Signs or symptoms of abuse and/or No neglect since last visit Have you been in the hospital since your No last visit? Has dressing in place as prescribed Yes Has compression in place as prescribed No Has offloadiing in place as prescribed N/A Experienced any changes in pain level or No management Left Footwear Regular Shoe Right Footwear Regular Shoe Pain Scale: 0-10 Numeric Is Patient Pain Free? Yes Yes Lower Extremity Assessment/ Foot Assessment/ Toe Nail Assessment Right -Posterior Tibial Doppler Monophasic -Dorsalis Pedis Doppler Monophasic -Extremity Color Pale -Hair Growth on Legs Yes -Hair Growth on Toes No -Temperature of Extremity Warm -Other Deformity No -Prior Foot Ulcer No -Charcot Joint No -Prior Amputation No -Thick Yes -Discolored Yes -Deformed No -Improper Length & Hygeine No Left -Posterior Tibial Doppler Monophasic -Dorsalis Pedis Doppler Monophasic -Extremity Color Pale -Hair Growth on Legs Yes -Hair Growth on Toes No -Temperature of Extremity Warm -Other Deformity No -Prior Foot Ulcer No -Charcot Joint No -Prior Amputation No -Thick Yes -Discolored Yes -Deformed No -Improper Length & Hygeine No WC - Nurse 1 - General Ulcer Measurement Start: 03/20/23 09:58 Freq: Status: Active Protocol: Activity Type Activity Date Activity User E-sign Co-sign Detail Recorded Client Recorded Date Recorded By Document 03/20/23 10:04 [facility] [id number] 03/20/23 10:18 [facility] Document 03/27/23 10:16 [id number] 03/27/23 10:23 03/20/23 03/27/23 10:04 10:16 Wound Center Nurse 1 #3- R GR TOE PLANTAR -Combined with other wound No No -Current Size (cm) - Length 0.8 0.3 -Current Size (cm) - Width 1.2 0.3 -Current Size (cm) - Depth 0.3 0.1 -Total Square Cm 0.96 0.09 -Date of Last Picture (Recall this 03/20/23 field) -Photo Taken Yes No -Epithelialization Small 1-33% -Tunneling No No -Undermining/Tunneling No No -Circular Undermining No No -Classification - Thickness Partial Thickness -Exudate Amt Medium Medium -Exudate Type Serosanguineous Serosanguineous -Wound Margin Distinct, Outline Attached -Granulation Amt Medium (34-66%) Medium (34-66%) -Granulation Quality [place] Pale,[place] -Slough/Fibrin Yes Yes -Necrosis Amt Medium (34-66%) Medium (34-66%) -Necrotic Tissue Type Adherent Slough Adherent Slough -Texture (Megan-wound Skin Appearance) Assessed, No Abnormality Scarring -Moisture (Megan-wound Skin Appearance) Assessed, No Abnormality Maceration -Color (Megan-wound Skin Appearance) Assessed No Abnormality -Temperature (Megan-wound Skin No Abnormality No Abnormality Appearance) (Pt Warm) (Pt Warm) -Tenderness on Palpation (Megan-wound No Skin Appearance) -Ulcer Cleansing Rinsed/ Rinsed/ Irrigated with Irrigated with Saline Saline -Foul Odor after Cleansing No No -Anesthetic Used 5% Lidocaine 5% Lidocaine Gel Gel Lower Limb Edema Present Yes Right Calf (cm) 45.6 Right Ankle (cm) 31.4 Left Calf (cm) 47.6 Left Ankle (cm) 32.9 WC - Nurse 2 - General Ulcer CM Notes Start: 03/20/23 09:58 Freq: Status: Active Protocol: Activity Type Activity Date Activity User E-sign Co-sign Detail Recorded Client Recorded Date Recorded By Document 03/20/23 10:36 MW [id number] 03/20/23 10:49 MW Document 03/27/23 10:40 MW [id number] 03/27/23 10:46 MW 03/20/23 03/27/23 10:36 10:40 Wound Center Nurse 2 #3- R GR TOE PLANTAR -Time 10:37 10:40 -Correct Patient Yes Yes -Correct Side, Site, Position Yes Yes -Correct Procedure Yes Yes -Procedure Performed Yes Yes -Type of Procedure Debridement Debridement -Clinical Debridement Subcutaneous Subcutaneous -Tissue Removed Subcutaneous Subcutaneous -Post Debridement (cm) - Length 2.5 1.2 -Post Debridement (cm) - Width 3.5 1.2 -Post Debridement (cm) - Depth 0.2 0.2 -Total Square (Post) (cm) 8.75 1.44 -Area of Debridement (cm) - Length 2.5 1.2 -Area of Debridement (cm) - Width 3.5 1.2 -Total Square (Area) (cm) 8.75 1.44 -Tunneling No No -Undermining/Tunneling No No -Circular Undermining No No -Wound/Ulcer Outcome Not Healed Not Healed -Ulcer Cleansing Rinsed/ Rinsed/ Irrigated with Irrigated with Saline Saline -Foul Odor after Cleansing No No -Bioengineered Tissue No No -Bleeding Controlled with Pressure Pressure -Treatment Response Procedure Procedure Tolerated Well Tolerated Well -Offloading No No -Debridement - Subq, 1st 20sq cm Yes Yes Pain Scale: 0-10 Numeric Is Patient Pain Free? Yes Yes - Nurse 3 - General Ulcer D/C NN Start: 03/20/23 09:58 Freq: Status: Active Protocol: Activity Type Activity Date Activity User E-sign Co-sign Detail Recorded Client Recorded Date Recorded By Document 03/20/23 11:11 [facility] [id number] 03/20/23 11:12 [facility] Document 03/27/23 11:06 [facility] [id number] 03/27/23 11:06 [facility] 03/20/23 03/27/23 11:11 11:06 Wound Care Center Nurse 3 #3- R GR TOE PLANTAR -Ulcer Cleansing Rinsed/ Rinsed/ Irrigated with Irrigated with Saline Saline -Foul Odor after Cleansing No -Negative Pressure Wound Therapy N/A -Primary Dressing Applied Fibracol Plus Fibracol Plus 4x4,NonAdherent 4x4,NonAdherent Contact Layer Contact Layer -Primary Dressing Covered/Secured with Dry Gauze, Dry Gauze Secured with Tape -Fibracol Plus 4x4 1 1 BLE -Tubular Bandage Double Layer Double Layer -Size of Tubigrip Used Size E Size E -Size E ($) 2 2 Treatment Response Procedure Procedure Tolerated Well Tolerated Well Pain Scale: 0-10 Numeric Is Patient Pain Free? Yes Yes - Visit Discharge Discharge Condition Stable Stable Ambulatory Status Ambulatory Ambulatory Transportation Private Auto Private Auto Assessment/Plan Assessment/Plan (1) Diabetic ulcer of foot associated with diabetes mellitus due to underlying condition, limited to breakdown of skin: CODE(S): E08.621 - Diabetes mellitus due to underlying condition with foot ulcer; L97.501 - Non-pressure chronic ulcer of other part of unspecified foot limited to breakdown of skin QUALIFIERS: Diabetic foot ulcer location: toe Laterality: left Qualified Code(s): E08.621 - Diabetes mellitus due to underlying condition with foot ulcer; L97.521 - Non-pressure chronic ulcer of other part of left foot limited to breakdown of skin (2) Uncontrolled diabetes mellitus with hyperglycemia: CODE(S): E11.65 - Type 2 diabetes mellitus with hyperglycemia PLAN: Wash feet with antibacterial soap and water like Dial apply fibrin call to right great toe Adaptic and dressing We will hold EpiFix till infection and A1c are lowered Positive wound cultures we will start her on doxycycline 100 mg twice daily for 14 days Double layer Tubigrip to bilateral lower legs Applied a postop shoe to right foot Also gave her foot covers for in-house wearing of shoes Follow-up in 1 week (3) Diabetic foot ulcer associated with type 2 diabetes mellitus: CODE(S): E11.621 - Type 2 diabetes mellitus with foot ulcer; L97.509 - Non-pressure chronic ulcer of other part of unspecified foot with unspecified severity
== END 2023-03-27 23:59 | disposition home or self-care (01) ==
LOC: WC 10:15
PROVIDERS: PCP Student in an Organized Health Care Education/Training Program; Referring Provider Student in an Organized Health Care Education/Training Program; Visit Provider Nurse Practitioner
DX: E11.621 Type 2 diabetes mellitus with foot ulcer (principal); E08.621 Diabetes mellitus due to underlying condition with foot ulcer; L97.521 Non-pressure chronic ulcer of other part of left foot limited to breakdown of skin; L97.501 Non-pressure chronic ulcer of other part of unspecified foot limited to breakdown of skin; E11.65 Type 2 diabetes mellitus with hyperglycemia; M79.606 Pain in leg, unspecified; E66.9 Obesity, unspecified
CPT/HCPCS: 11042; 87070; 87075; 87077; 87186; 87205; 99213; G0463

== ENCOUNTER 2023-04-24 09:00 | Outpatient (RCR) | payer OTHER, SELFPAY ==
[2023-03-28 00:47] VITALS: BP 104/63; PULSE 71; RESP 18; TEMP 36.4; BMI 37.7
[2023-04-03 10:02] VITALS: BP 101/65; PULSE 78; RESP 16; TEMP 36.2; BMI 37.7
--- NOTE | 2023-04-03 11:53 | PN.PCM_ITS ---
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 Patient does not manage her blood sugars well is on insulin for her type II. That is not managed well. Her blood sugars run at least greater than 250. States her A1c is well over 14. She currently sees Dr. Alonso podiatry out of [facility]. Her biggest problem is callusing over her bony prominences of her foot. She has some cracked heels and a crack underneath her great toes. All the wounds seem to be superficial. Patient wears crocs and she also wears no shoes when she is in the house at the nursing home. Since the last time I saw her she has developed an ulcer under her right great toe that has positive depth. Looks like it was a blister that has opened. We will obtain cultures at this time. Patient does complain of pain up in her lower extremity but has a lot of edema. Progress of Wound: Right great toe is healing very well despite the fact that she states she was just in the hospital for DKA. Blood sugars were over 700. 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 Wound itself has a little maceration around the edge it is on her toe and shoe and sock so we will stop the Adaptic and just use the fibrin call but that fibrin cause working very well for her. Subjective Subjective Patient is okay with the treatments Objective Data Objective Data As stated above healing well no sign of infections little macerated around the edge but it does measure smaller fibrin call is working very well healing nicely. Vital Signs: Vital Signs Temp Pulse Resp BP O2 Del Method 97.1 F L 78 16 101/65 Room Air 04/03/23 10:02 04/03/23 10:02 04/03/23 10:02 04/03/23 10:02 04/03/23 10:02 Oxygen Delivery Method Room Air Weight: 263 lb Body Mass Index (BMI) 37.7 Lab / Micro Data Attestation: I reviewed the patient's lab results. Physical Exam Const alert, oriented x3 and no apparent distress Constitutional Narrative: Obese, middle-aged white female sitting up in bed, appears much older than stated age, appears comfortable and nontoxic, nursing at bedside, at bedside General Appearance: cooperative, comfortable, well kempt and well developed Exam Limitations: no limitations Nutritional Appearance: obese HEENT normocephalic, head/scalp atraumatic, hearing grossly normal bilaterally and moist oral mucous membranes HEENT Narrative: Mallampati 2-3, no thrush, Dobbhoff in right nares Eyes PERRL, EOMs intact bilaterally and no scleral icterus; Negative for conjunctivae normal Eyes Narrative: Mildly pale conjunctiva bilaterally, no scleral icterus Neck no lymphadenopathy, supple and no JVD Neck Narrative: Trachea midline, no thyroid enlargement General: trachea midline Lymph Lymphatic: no lymphadenopathy noted Resp normal respiratory effort, no retractions, no use of accessory muscles and clear to auscultation bilaterally Resp Narrative: Diminished at bases bilaterally but otherwise clear Effort and Inspection: able to speak in complete sentences and symmetric chest movement Auscultation: Negative for crackles, rales, rhonchi or wheezes Cardio regular rate, regular rhythm, S1 normal heart sound, S2 normal heart sound, no murmurs, no rub, no gallops, no clicks and no JVD Rate: tachycardic GI normal to inspection, nondistended, normoactive bowel sounds, soft to palpation and non-distended GI Narrative: Tenderness in the epigastric and left upper quadrant during palpation Inspection: abdominal distention Auscultation: hypoactive bowel sounds Palpation: firm and tender epigastric, LUQ and RUQ Extremity normal to inspection and full ROM; Negative for no pedal edema Skin Skin Narrative: Right great toe open wound. Fissures and cracks and bottom of right and left foot and heel area. lateral lower extremities all edematous General Skin Exam: turgor normal Wounds: wounds noted Wound Narrative: Open wound or DFU right great toe Neuro oriented x3, CN's II-XII intact bilaterally, moves all extremities, no focal motor deficits and no sensory deficits noted Sensorium / Orientation: awake and alert Speech: speech normal Psych affect normal Psych Narrative: Anxious but appropriate Debridement Note Debridement Note Post-Debridement Measurements and Additional Note: Post-Debridement Measurements/Treatment WC - Nurse 1 - General Ulcer Assessment Start: 04/03/23 10:02 Freq: Status: Active Protocol: EMEKA Activity Type Activity Date Activity User E-sign Co-sign Detail Recorded Client Recorded Date Recorded By Document 04/03/23 10:02 [facility] [id number] 04/03/23 10:10 [facility] 04/03/23 10:02 - Today's Visit Information Type of service Follow-up Visit (Physician/CLINICAL TRIAL LEADER ) Arrival Mode Ambulatory Transfer Assistance None Patient Identification Verified (Name & Yes ) Patient Requires Transmission-Based No Precautions Height and Weight Body Mass Index (BMI) 37.7 BMI Classification Obese Vital Signs Temperature (97.8 F-99.1 F) 97.1 F L Temperature Source Temporal Pulse Rate (60-100) 78 Pulse Location Monitor Respiratory Rate (12-18) 16 Respiratory rate source Observation Oxygen Delivery Method Room Air Blood Pressure (90/60-120/80) 101/65 Blood Pressure Mean (mm Hg) 77 Source Monitor Position Sitting Blood Pressure Location Right Arm History Since Last Visit- (Skip if this is Patient's initial visit) Have you changed medications since your No last visit? Any new allergies or adverse reactions No Had a fall/change in ADL's that may No increase risk of falls Signs or symptoms of abuse and/or No neglect since last visit Have you been in the hospital since your No last visit? Has dressing in place as prescribed Yes Has compression in place as prescribed N/A Has offloadiing in place as prescribed N/A Experienced any changes in pain level or No management Left Footwear Regular Shoe Right Footwear Regular Shoe Pain Scale: 0-10 Numeric Is Patient Pain Free? Yes - Nurse 1 - General Ulcer Measurement Start: 04/03/23 10:02 Freq: Status: Active Protocol: Activity Type Activity Date Activity User E-sign Co-sign Detail Recorded Client Recorded Date Recorded By Document 04/03/23 10:02 [facility] [id number] 04/03/23 10:10 [facility] 04/03/23 10:02 Wound Center Nurse 1 #3- R GR TOE PLANTAR -Combined with other wound No -Current Size (cm) - Length 0.8 -Current Size (cm) - Width 1.1 -Current Size (cm) - Depth 0.1 -Total Square Cm 0.88 -Date of Last Picture (Recall this 04/03/23 field) -Photo Taken Yes -Epithelialization None Present -Tunneling No -Undermining/Tunneling No -Circular Undermining No -Exudate Amt Small -Exudate Type Serosanguineous -Wound Margin Flat & Intact -Granulation Amt Large (67-100%) -Granulation Quality [place] -Slough/Fibrin Yes -Necrosis Amt Small (1-33%) -Necrotic Tissue Type Adherent Slough -Texture (Megan-wound Skin Appearance) Assessed,Callus ,Scarring -Moisture (Megan-wound Skin Appearance) Assessed,Dry/ Scaly -Color (Megan-wound Skin Appearance) Assessed, Erythema -Temperature (Megan-wound Skin No Abnormality Appearance) (Pt Warm) -Tenderness on Palpation (Megan-wound No Skin Appearance) -Ulcer Cleansing Rinsed/ Irrigated with Saline -Foul Odor after Cleansing No -Anesthetic Used 5% Lidocaine Gel Lower Limb Edema Present Yes Right Calf (cm) 42.7 Right Ankle (cm) 28.3 WC - Nurse 2 - General Ulcer CM Notes Start: 04/03/23 10:02 Freq: Status: Active Protocol: Activity Type Activity Date Activity User E-sign Co-sign Detail Recorded Client Recorded Date Recorded By Document 04/03/23 10:27 MW Desktop 04/03/23 10:31 MW 04/03/23 10:27 Wound Center Nurse 2 #3- R GR TOE PLANTAR -Time 10:27 -Correct Patient Yes -Correct Side, Site, Position Yes -Correct Procedure Yes -Procedure Performed Yes -Type of Procedure Debridement -Clinical Debridement Subcutaneous -Tissue Removed Subcutaneous -Post Debridement (cm) - Length 0.8 -Post Debridement (cm) - Width 0.9 -Post Debridement (cm) - Depth 0.1 -Total Square (Post) (cm) 0.72 -Area of Debridement (cm) - Length 0.8 -Area of Debridement (cm) - Width 0.9 -Total Square (Area) (cm) 0.72 -Tunneling No -Undermining/Tunneling No -Circular Undermining No -Wound/Ulcer Outcome Not Healed -Ulcer Cleansing Rinsed/ Irrigated with Saline -Foul Odor after Cleansing No -Bioengineered Tissue No -Bleeding Controlled with Pressure -Treatment Response Procedure Tolerated Well -Offloading No -Debridement - Subq, 1st 20sq cm Yes Pain Scale: 0-10 Numeric Is Patient Pain Free? Yes WC - Nurse 3 - General Ulcer D/C NN Start: 04/03/23 10:02 Freq: Status: Active Protocol: Activity Type Activity Date Activity User E-sign Co-sign Detail Recorded Client Recorded Date Recorded By Document 04/03/23 10:44 [facility] [id number] 04/03/23 10:44 [facility] 04/03/23 10:44 Wound Care Center Nurse 3 #3- R GR TOE PLANTAR -Ulcer Cleansing Rinsed/ Irrigated with Saline -Foul Odor after Cleansing No -Primary Dressing Applied Fibracol Plus 4x4 -Primary Dressing Covered/Secured with Dry Gauze, Secured with Tape -Fibracol Plus 4x4 1 ble -Tubular Bandage Double Layer -Size of Tubigrip Used Size E -Size E ($) 2 Treatment Response Procedure Tolerated Well Pain Scale: 0-10 Numeric Is Patient Pain Free? Yes WC - Visit Discharge Discharge Condition Stable Ambulatory Status Ambulatory Transportation Private Auto Assessment/Plan Assessment/Plan (1) Diabetic ulcer of foot associated with diabetes mellitus due to underlying condition, limited to breakdown of skin: CODE(S): E08.621 - Diabetes mellitus due to underlying condition with foot ulcer; L97.501 - Non-pressure chronic ulcer of other part of unspecified foot limited to breakdown of skin QUALIFIERS: Diabetic foot ulcer location: toe Laterality: left Qualified Code(s): E08.621 - Diabetes mellitus due to underlying condition with foot ulcer; L97.521 - Non-pressure chronic ulcer of other part of left foot limited to breakdown of skin (2) Uncontrolled diabetes mellitus with hyperglycemia: CODE(S): E11.65 - Type 2 diabetes mellitus with hyperglycemia PLAN: Wash feet with antibacterial soap and water like Dial apply fibrin call to right great toe and dressing We will hold EpiFix till infection and A1c are lowered She has finished her antibiotic Double layer Tubigrip to bilateral lower legs Applied a postop shoe to right foot Also gave her foot covers for in-house wearing of shoes Follow-up in 1 week (3) Diabetic foot ulcer associated with type 2 diabetes mellitus: CODE(S): E11.621 - Type 2 diabetes mellitus with foot ulcer; L97.509 - Non-pressure chronic ulcer of other part of unspecified foot with unspecified se verity
[2023-04-10 09:50] VITALS: BP 125/77; PULSE 80; RESP 16; TEMP 35.7; BMI 37.7
--- NOTE | 2023-04-10 10:32 | PCM.WC.PN ---
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 Patient does not manage her blood sugars well is on insulin for her type II. That is not managed well. Her blood sugars run at least greater than 500. States her A1c is well over 14. She currently sees Dr. Alonso podiatry out of [facility]. Her biggest problem is callusing over her bony prominences of her foot. She has some cracked heels and a crack underneath her great toes. All the wounds seem to be superficial. Patient wears crocs and she also wears no shoes when she is in the house at the snf. Since the last time I saw her she has developed an ulcer under her right great toe that has positive depth. Looks like it was a blister that has opened. We will obtain cultures at this time. Patient does complain of pain up in her lower extremity but has a lot of edema. Progress of Wound: Right great toe is healing very well despite the fact that she states she was just in the hospital for DKA. She was again back in the hospital for blood sugars greater than 500. [employer] is working well for her and healing her despite her high blood sugars she is still healing and its more superficial and smaller Subjective Subjective Patient is happy with outcomes Objective Data Objective Data Again no sign of infection she does develop a callus around the wound that has to be debrided off every week and the wound itself is healing well she is getting skin over Vital Signs: Vital Signs Temp Pulse Resp BP O2 Del Method 96.2 F L 80 16 125/77 H Room Air 04/10/23 09:50 04/10/23 09:50 04/10/23 09:50 04/10/23 09:50 04/10/23 09:50 Oxygen Delivery Method Room Air Weight: 263 lb Body Mass Index (BMI) 37.7 Physical Exam Const alert, oriented x3 and no apparent distress Constitutional Narrative: Obese, middle-aged white female sitting up in bed, appears much older than stated age, appears comfortable and nontoxic, nursing at bedside, at bedside General Appearance: cooperative, comfortable, well kempt and well developed Exam Limitations: no limitations Nutritional Appearance: obese HEENT normocephalic, head/scalp atraumatic, hearing grossly normal bilaterally and moist oral mucous membranes HEENT Narrative: Mallampati 2-3, no thrush, Dobbhoff in right nares Eyes PERRL, EOMs intact bilaterally and no scleral icterus; Negative for conjunctivae normal Eyes Narrative: Mildly pale conjunctiva bilaterally, no scleral icterus Neck no lymphadenopathy, supple and no JVD Neck Narrative: Trachea midline, no thyroid enlargement General: trachea midline Lymph Lymphatic: no lymphadenopathy noted Resp normal respiratory effort, no retractions, no use of accessory muscles and clear to auscultation bilaterally Resp Narrative: Diminished at bases bilaterally but otherwise clear Effort and Inspection: able to speak in complete sentences and symmetric chest movement Auscultation: Negative for crackles, rales, rhonchi or wheezes Cardio regular rate, regular rhythm, S1 normal heart sound, S2 normal heart sound, no murmurs, no rub, no gallops, no clicks and no JVD Rate: tachycardic GI normal to inspection, nondistended, normoactive bowel sounds, soft to palpation and non-distended GI Narrative: Tenderness in the epigastric and left upper quadrant during palpation Inspection: abdominal distention Auscultation: hypoactive bowel sounds Palpation: firm and tender epigastric, LUQ and RUQ Extremity normal to inspection and full ROM; Negative for no pedal edema Skin Skin Narrative: Right great toe open wound. Fissures and cracks and bottom of right and left foot and heel area. lateral lower extremities all edematous General Skin Exam: turgor normal Wounds: wounds noted Wound Narrative: Open wound or DFU right great toe Neuro oriented x3, CN's II-XII intact bilaterally, moves all extremities, no focal motor deficits and no sensory deficits noted Sensorium / Orientation: awake and alert Speech: speech normal Psych affect normal Psych Narrative: Anxious but appropriate Debridement Note Debridement Note Wound debrided: Right great toe diabetic foot ulcer Laterality: Right Wound Grade/Stage: Stage II Type of Debridement: Excisional debridement Anesthesia Used: 5% Lidocaine Gel Depth: Down to and including healthy tissue Percentage of wound debrided: 100 Instrument Used: 7mm curette Tissue Removed: Callus and fibrin Severity: Limited To Skin Breakdown Amount of bleeding with debridement: Mild Bleeding Controlled with: Compression and gauze Patient tolerated procedure: Patient tolerated procedure well Post-Debridement Measurements and Additional Note: Post-Debridement Measurements/Treatment WC - Nurse 1 - General Ulcer Assessment Start: 04/03/23 10:02 Freq: Status: Active Protocol: EMEKA Activity Type Activity Date Activity User E-sign Co-sign Detail Recorded Client Recorded Date Recorded By Document 04/03/23 10:02 [facility] [id number] 04/03/23 10:10 BM Document 04/10/23 09:50 [facility] [id number] 04/10/23 09:54 [facility] 04/03/23 04/10/23 10:02 09:50 - Today's Visit Information Type of service Follow-up Visit Follow-up Visit (Physician/PROJECT ECONOMIST (Physician/PROJECT ECONOMIST ) ) Arrival Mode Ambulatory Ambulatory Transfer Assistance None None Patient Identification Verified (Name & Yes Yes ) Patient Requires Transmission-Based No No Precautions Finger Stick Blood Sugar(mg/dl) (if 384 indicated): Blood Sugar Stated by Patient Height and Weight Body Mass Index (BMI) 37.7 37.7 BMI Classification Obese Obese Vital Signs Temperature (97.8 F-99.1 F) 97.1 F L 96.2 F L Temperature Source Temporal Temporal Pulse Rate (60-100) 78 80 Pulse Location Monitor Monitor Respiratory Rate (12-18) 16 16 Respiratory rate source Observation Observation Oxygen Delivery Method Room Air Room Air Blood Pressure (90/60-120/80) 101/65 125/77 H Blood Pressure Mean (mm Hg) 77 93 Source Monitor Monitor Position Sitting Sitting Blood Pressure Location Right Arm Left Arm History Since Last Visit- (Skip if this is Patient's initial visit) Have you changed medications since your No No last visit? Any new allergies or adverse reactions No No Had a fall/change in ADL's that may No No increase risk of falls Signs or symptoms of abuse and/or No No neglect since last visit Have you been in the hospital since your No Yes last visit? Has dressing in place as prescribed Yes Yes Has compression in place as prescribed N/A Yes Has offloadiing in place as prescribed N/A N/A Experienced any changes in pain level or No No management Left Footwear Regular Shoe Regular Shoe Right Footwear Regular Shoe Regular Shoe Pain Scale: 0-10 Numeric Is Patient Pain Free? Yes Yes - Nurse 1 - General Ulcer Measurement Start: 04/03/23 10:02 Freq: Status: Active Protocol: Activity Type Activity Date Activity User E-sign Co-sign Detail Recorded Client Recorded Date Recorded By Document 04/03/23 10:02 [facility] [id number] 04/03/23 10:10 [facility] Document 04/10/23 09:50 [facility] [id number] 04/10/23 09:54 [facility] 04/03/23 04/10/23 10:02 09:50 Wound Center Nurse 1 #3- R GR TOE PLANTAR -Combined with other wound No No -Current Size (cm) - Length 0.8 0.6 -Current Size (cm) - Width 1.1 0.8 -Current Size (cm) - Depth 0.1 0.2 -Total Square Cm 0.88 0.48 -Date of Last Picture (Recall this 04/03/23 04/10/23 field) -Photo Taken Yes Yes -Epithelialization None Present None Present -Tunneling No No -Undermining/Tunneling No No -Circular Undermining No No -Exudate Amt Small Medium -Exudate Type Serosanguineous Serosanguineous -Wound Margin Flat & Intact Distinct, Outline Attached -Granulation Amt Large (67-100%) Large (67-100%) -Granulation Quality [place] -Slough/Fibrin Yes Yes -Necrosis Amt Small (1-33%) Small (1-33%) -Necrotic Tissue Type Adherent Slough Adherent Slough -Texture (Megan-wound Skin Appearance) Assessed,Callus Assessed,Callus ,Scarring ,Scarring -Moisture (Megan-wound Skin Appearance) Assessed,Dry/ Assessed Scaly -Color (Megan-wound Skin Appearance) Assessed, Assessed Erythema -Temperature (Megan-wound Skin No Abnormality No Abnormality Appearance) (Pt Warm) (Pt Warm) -Tenderness on Palpation (Megan-wound No No Skin Appearance) -Ulcer Cleansing Rinsed/ Rinsed/ Irrigated with Irrigated with Saline Saline -Foul Odor after Cleansing No No -Anesthetic Used 5% Lidocaine 5% Lidocaine Gel Gel Lower Limb Edema Present Yes Right Calf (cm) 42.7 Right Ankle (cm) 28.3 WC - Nurse 2 - General Ulcer CM Notes Start: 04/03/23 10:02 Freq: Status: Active Protocol: Activity Type Activity Date Activity User E-sign Co-sign Detail Recorded Client Recorded Date Recorded By Document 04/03/23 10:27 MW Desktop 04/03/23 10:31 MW Document 04/10/23 10:04 MW [id number] 04/10/23 10:19 MW 04/03/23 04/10/23 10:27 10:04 Wound Center Nurse 2 #3- R GR TOE PLANTAR -Time 10:27 10:04 -Correct Patient Yes Yes -Correct Side, Site, Position Yes Yes -Correct Procedure Yes Yes -Procedure Performed Yes Yes -Type of Procedure Debridement Debridement -Clinical Debridement Subcutaneous Subcutaneous -Tissue Removed Subcutaneous Subcutaneous -Post Debridement (cm) - Length 0.8 0.5 -Post Debridement (cm) - Width 0.9 0.5 -Post Debridement (cm) - Depth 0.1 0.1 -Total Square (Post) (cm) 0.72 0.25 -Area of Debridement (cm) - Length 0.8 0.5 -Area of Debridement (cm) - Width 0.9 0.5 -Total Square (Area) (cm) 0.72 0.25 -Tunneling No No -Undermining/Tunneling No No -Circular Undermining No No -Wound/Ulcer Outcome Not Healed Not Healed -Ulcer Cleansing Rinsed/ Rinsed/ Irrigated with Irrigated with Saline Saline -Foul Odor after Cleansing No No -Bioengineered Tissue No No -Bleeding Controlled with Pressure Pressure -Treatment Response Procedure Procedure Tolerated Well Tolerated Well -Offloading No No -Debridement - Subq, 1st 20sq cm Yes Yes Pain Scale: 0-10 Numeric Is Patient Pain Free? Yes Yes WC - Nurse 3 - General Ulcer D/C NN Start: 04/03/23 10:02 Freq: Status: Active Protocol: Activity Type Activity Date Activity User E-sign Co-sign Detail Recorded Client Recorded Date Recorded By Document 04/03/23 10:44 [facility] [id number] 04/03/23 10:44 [facility] Document 04/10/23 10:24 [facility] [id number] 04/10/23 10:25 [facility] 04/03/23 04/10/23 10:44 10:24 Wound Care Center Nurse 3 #3- R GR TOE PLANTAR -Ulcer Cleansing Rinsed/ Rinsed/ Irrigated with Irrigated with Saline Saline -Foul Odor after Cleansing No No -Primary Dressing Applied Fibracol Plus Fibracol Plus 4x4 4x4 -Primary Dressing Covered/Secured with Dry Gauze, Dry Gauze, Secured with Secured with Tape Tape -Fibracol Plus 4x4 1 1 ble -Tubular Bandage Double Layer -Size of Tubigrip Used Size E -Size E ($) 2 -Other pt has mult sets at home and will apply there Treatment Response Procedure Procedure Tolerated Well Tolerated Well Pain Scale: 0-10 Numeric Is Patient Pain Free? Yes Yes WC - Visit Discharge Discharge Condition Stable Stable Ambulatory Status Ambulatory Ambulatory Transportation Private Auto Private Auto Assessment/Plan Assessment/Plan (1) Diabetic ulcer of foot associated with diabetes mellitus due to underlying condition, limited to breakdown of skin: CODE(S): E08.621 - Diabetes mellitus due to underlying condition with foot ulcer; L97.501 - Non-pressure chronic ulcer of other part of unspecified foot limited to breakdown of skin QUALIFIERS: Diabetic foot ulcer location: toe Laterality: left Qualified Code(s): E08.621 - Diabetes mellitus due to underlying condition with foot ulcer; L97.521 - Non-pressure chronic ulcer of other part of left foot limited to breakdown of skin (2) Uncontrolled diabetes mellitus with hyperglycemia: CODE(S): E11.65 - Type 2 diabetes mellitus with hyperglycemia PLAN: Wash feet with antibacterial soap and water like Dial apply fibrocol moistened cover with gauze and tape to right great toe and dressing We will hold EpiFix till infection and A1c are lowered She has finished her antibiotic Double layer Tubigrip to bilateral lower legs Applied a postop shoe to right foot Also gave her foot covers for in-house wearing of shoes Follow-up in 1 week (3) Diabetic foot ulcer associated with type 2 diabetes mellitus: CODE(S): E11.621 - Type 2 diabetes mellitus with foot ulcer; L97.509 - Non-pressure chronic ulcer of other part of unspecified foot with unspecified severity
[2023-04-17 09:46] VITALS: BP 106/65; PULSE 74; RESP 16; TEMP 35.9; BMI 37.7
--- NOTE | 2023-04-17 11:35 | PCM.WC.PN ---
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 Patient does not manage her blood sugars well is on insulin for her type II. That is not managed well. Her blood sugars run at least greater than 500. States her A1c is well over 14. She currently sees Dr. Alonso podiatry out of [facility]. Her biggest problem is callusing over her bony prominences of her foot. She has some cracked heels and a crack underneath her great toes. All the wounds seem to be superficial. Patient wears crocs and she also wears no shoes when she is in the house at the halfway. Since the last time I saw her she has developed an ulcer under her right great toe that has positive depth. Looks like it was a blister that has opened. We will obtain cultures at this time. Patient does complain of pain up in her lower extremity but has a lot of edema. Progress of Wound: Right great toe continues to improve with the Fibracol it flatter just needs to get a piece of skin over top and it should be healed. No sign of infection she still calluses around the wound which we debrided weekly. Subjective Subjective Patient states still has to wait till April to see her yeast pumper. Did have labs drawn this morning for her regular doctor fasting. Objective Data Objective Data Again no sign of infection the toe looks good we will continue to use the Fibracol Vital Signs: Vital Signs Temp Pulse Resp BP O2 Del Method 96.6 F L 74 16 106/65 Room Air 04/17/23 09:46 04/17/23 09:46 04/17/23 09:46 04/17/23 09:46 04/17/23 09:46 Oxygen Delivery Method Room Air Weight: 263 lb Body Mass Index (BMI) 37.7 Physical Exam Const alert, oriented x3 and no apparent distress Constitutional Narrative: Obese, middle-aged white female sitting up in bed, appears much older than stated age, appears comfortable and nontoxic, nursing at bedside, at bedside General Appearance: cooperative, comfortable, well kempt and well developed Exam Limitations: no limitations Nutritional Appearance: obese HEENT normocephalic, head/scalp atraumatic, hearing grossly normal bilaterally and moist oral mucous membranes HEENT Narrative: Mallampati 2-3, no thrush, Dobbhoff in right nares Eyes PERRL, EOMs intact bilaterally and no scleral icterus; Negative for conjunctivae normal Eyes Narrative: Mildly pale conjunctiva bilaterally, no scleral icterus Neck no lymphadenopathy, supple and no JVD Neck Narrative: Trachea midline, no thyroid enlargement General: trachea midline Lymph Lymphatic: no lymphadenopathy noted Resp normal respiratory effort, no retractions, no use of accessory muscles and clear to auscultation bilaterally Resp Narrative: Diminished at bases bilaterally but otherwise clear Effort and Inspection: able to speak in complete sentences and symmetric chest movement Auscultation: Negative for crackles, rales, rhonchi or wheezes Cardio regular rate, regular rhythm, S1 normal heart sound, S2 normal heart sound, no murmurs, no rub, no gallops, no clicks and no JVD Rate: tachycardic GI normal to inspection, nondistended, normoactive bowel sounds, soft to palpation and non-distended GI Narrative: Tenderness in the epigastric and left upper quadrant during palpation Inspection: abdominal distention Auscultation: hypoactive bowel sounds Palpation: firm and tender epigastric, LUQ and RUQ Extremity normal to inspection and full ROM; Negative for no pedal edema Skin Skin Narrative: Right great toe open wound. Fissures and cracks and bottom of right and left foot and heel area. lateral lower extremities all edematous General Skin Exam: turgor normal Wounds: wounds noted Wound Narrative: Open wound or DFU right great toe Neuro oriented x3, CN's II-XII intact bilaterally, moves all extremities, no focal motor deficits and no sensory deficits noted Sensorium / Orientation: awake and alert Speech: speech normal Psych affect normal Psych Narrative: Anxious but appropriate Debridement Note Debridement Note Wound debrided: Right great toe DFU Laterality: Right Wound Grade/Stage: Stage II Type of Debridement: Excisional debridement Anesthesia Used: 5% Lidocaine Gel Depth: Down to and including healthy tissue Percentage of wound debrided: 100 Instrument Used: 5mm curette Tissue Removed: Callus fibrin Severity: Limited To Skin Breakdown Amount of bleeding with debridement: Mild Bleeding Controlled with: Compression and gauze Patient tolerated procedure: Patient tolerated procedure well Post-Debridement Measurements and Additional Note: Post-Debridement Measurements/Treatment WC - Nurse 1 - General Ulcer Assessment Start: 04/03/23 10:02 Freq: Status: Active Protocol: WC.LOWEXT Activity Type Activity Date Activity User E-sign Co-sign Detail Recorded Client Recorded Date Recorded By Document 04/03/23 10:02 [facility] [id number] 04/03/23 10:10 BM Document 04/10/23 09:50 [facility] [id number] 04/10/23 09:54 [facility] Document 04/17/23 09:46 [facility] [id number] 04/17/23 09:52 BMF 04/03/23 04/10/23 04/17/23 10:02 09:50 09:46 WC - Today's Visit Information Type of service Follow-up Visit Follow-up Visit Follow-up Visit (Physician/REEL FED PRINTER (Physician/REEL FED PRINTER (Physician/REEL FED PRINTER ) ) ) Arrival Mode Ambulatory Ambulatory Ambulatory Transfer Assistance None None None Patient Identification Verified (Name & Yes Yes Yes ) Patient Requires Transmission-Based No No No Precautions Finger Stick Blood Sugar(mg/dl) (if 384 indicated): Blood Sugar Stated by Patient Height and Weight Body Mass Index (BMI) 37.7 37.7 37.7 BMI Classification Obese Obese Obese Vital Signs Temperature (97.8 F-99.1 F) 97.1 F L 96.2 F L 96.6 F L Temperature Source Temporal Temporal Temporal Pulse Rate (60-100) 78 80 74 Pulse Location Monitor Monitor Monitor Respiratory Rate (12-18) 16 16 16 Respiratory rate source Observation Observation Observation Oxygen Delivery Method Room Air Room Air Room Air Blood Pressure (90/60-120/80) 101/65 125/77 H 106/65 Blood Pressure Mean (mm Hg) 77 93 78 Source Monitor Monitor Monitor Position Sitting Sitting Sitting Blood Pressure Location Right Arm Left Arm Right Arm History Since Last Visit- (Skip if this is Patient's initial visit) Have you changed medications since your No No No last visit? Any new allergies or adverse reactions No No No Had a fall/change in ADL's that may No No No increase risk of falls Signs or symptoms of abuse and/or No No No neglect since last visit Have you been in the hospital since your No Yes No last visit? Has dressing in place as prescribed Yes Yes Yes Has compression in place as prescribed N/A Yes N/A Has offloadiing in place as prescribed N/A N/A N/A Experienced any changes in pain level or No No No management Left Footwear Regular Shoe Regular Shoe Regular Shoe Right Footwear Regular Shoe Regular Shoe Regular Shoe Pain Scale: 0-10 Numeric Is Patient Pain Free? Yes Yes Yes WC - Nurse 1 - General Ulcer Measurement Start: 04/03/23 10:02 Freq: Status: Active Protocol: Activity Type Activity Date Activity User E-sign Co-sign Detail Recorded Client Recorded Date Recorded By Document 04/03/23 10:02 [facility] [id number] 04/03/23 10:10 BM Document 04/10/23 09:50 [facility] [id number] 04/10/23 09:54 BM Document 04/17/23 09:46 [facility] [id number] 04/17/23 09:52 BMF 04/03/23 04/10/23 04/17/23 10:02 09:50 09:46 Wound Center Nurse 1 #3- R GR TOE PLANTAR -Combined with other wound No No No -Current Size (cm) - Length 0.8 0.6 0.5 -Current Size (cm) - Width 1.1 0.8 0.6 -Current Size (cm) - Depth 0.1 0.2 0.2 -Total Square Cm 0.88 0.48 0.30 -Date of Last Picture (Recall this 04/03/23 04/10/23 04/17/23 field) -Photo Taken Yes Yes Yes -Epithelialization None Present None Present Small 1-33% -Tunneling No No No -Undermining/Tunneling No No No -Circular Undermining No No No -Exudate Amt Small Medium Medium -Exudate Type Serosanguineous Serosanguineous Serosanguineous -Wound Margin Flat & Intact Distinct, Distinct, Outline Outline Attached Attached -Granulation Amt Large (67-100%) Large (67-100%) Large (67-100%) -Granulation Quality [place] -Slough/Fibrin Yes Yes -Necrosis Amt Small (1-33%) Small (1-33%) Small (1-33%) -Necrotic Tissue Type Adherent Slough Adherent Slough Adherent Slough -Texture (Megan-wound Skin Appearance) Assessed,Callus Assessed,Callus Assessed,Callus ,Scarring ,Scarring ,Scarring -Moisture (Megan-wound Skin Appearance) Assessed,Dry/ Assessed Assessed,Dry/ Scaly Scaly -Color (Megan-wound Skin Appearance) Assessed, Assessed Assessed Erythema -Temperature (Megan-wound Skin No Abnormality No Abnormality No Abnormality Appearance) (Pt Warm) (Pt Warm) (Pt Warm) -Tenderness on Palpation (Megan-wound No No No Skin Appearance) -Ulcer Cleansing Rinsed/ Rinsed/ Rinsed/ Irrigated with Irrigated with Irrigated with Saline Saline Saline -Foul Odor after Cleansing No No No -Anesthetic Used 5% Lidocaine 5% Lidocaine 5% Lidocaine Gel Gel Gel Lower Limb Edema Present Yes Right Calf (cm) 42.7 Right Ankle (cm) 28.3 WC - Nurse 2 - General Ulcer CM Notes Start: 04/03/23 10:02 Freq: Status: Active Protocol: Activity Type Activity Date Activity User E-sign Co-sign Detail Recorded Client Recorded Date Recorded By Document 04/03/23 10:27 MW Desktop 04/03/23 10:31 MW Document 04/10/23 10:04 MW [id number] 04/10/23 10:19 MW Document 04/17/23 10:06 MW [id number] 04/17/23 10:08 MW 04/03/23 04/10/23 04/17/23 10:27 10:04 10:06 Wound Center Nurse 2 #3- R GR TOE PLANTAR -Time 10:27 10:04 10:06 -Correct Patient Yes Yes Yes -Correct Side, Site, Position Yes Yes Yes -Correct Procedure Yes Yes Yes -Procedure Performed Yes Yes Yes -Type of Procedure Debridement Debridement Debridement -Clinical Debridement Subcutaneous Subcutaneous Subcutaneous -Tissue Removed Subcutaneous Subcutaneous Subcutaneous -Post Debridement (cm) - Length 0.8 0.5 0.6 -Post Debridement (cm) - Width 0.9 0.5 0.5 -Post Debridement (cm) - Depth 0.1 0.1 0.1 -Total Square (Post) (cm) 0.72 0.25 0.30 -Area of Debridement (cm) - Length 0.8 0.5 0.6 -Area of Debridement (cm) - Width 0.9 0.5 0.5 -Total Square (Area) (cm) 0.72 0.25 0.30 -Tunneling No No No -Undermining/Tunneling No No No -Circular Undermining No No No -Wound/Ulcer Outcome Not Healed Not Healed Not Healed -Ulcer Cleansing Rinsed/ Rinsed/ Rinsed/ Irrigated with Irrigated with Irrigated with Saline Saline Saline -Foul Odor after Cleansing No No No -Bioengineered Tissue No No No -Bleeding Controlled with Pressure Pressure Pressure -Treatment Response Procedure Procedure Procedure Tolerated Well Tolerated Well Tolerated Well -Offloading No No No -Debridement - Subq, 1st 20sq cm Yes Yes Yes Pain Scale: 0-10 Numeric Is Patient Pain Free? Yes Yes Yes - Nurse 3 - General Ulcer D/C NN Start: 04/03/23 10:02 Freq: Status: Active Protocol: Activity Type Activity Date Activity User E-sign Co-sign Detail Recorded Client Recorded Date Recorded By Document 04/03/23 10:44 [facility] [id number] 04/03/23 10:44 [facility] Document 04/10/23 10:24 BM [id number] 04/10/23 10:25 BM Document 04/17/23 10:23 RB [id number] 04/17/23 10:24 RB 04/03/23 04/10/23 04/17/23 10:44 10:24 10:23 Wound Care Center Nurse 3 #3- R GR TOE PLANTAR -Ulcer Cleansing Rinsed/ Rinsed/ Wound Cleanser Irrigated with Irrigated with Saline Saline -Foul Odor after Cleansing No No No -Primary Dressing Applied Fibracol Plus Fibracol Plus 4x4 4x4 -Other Dressing fibracol plus -Primary Dressing Covered/Secured with Dry Gauze, Dry Gauze, Dry Gauze & Secured with Secured with Roll Gauze, Tape Tape Secured with Tape -Fibracol Plus 4x4 1 1 ble -Tubular Bandage Double Layer Double Layer -Size of Tubigrip Used Size E Size E -Size E ($) 2 2 -Other pt has mult sets at home and will apply there Treatment Response Procedure Procedure Procedure Tolerated Well Tolerated Well Tolerated Well Pain Scale: 0-10 Numeric Is Patient Pain Free? Yes Yes Yes WC - Visit Discharge Discharge Condition Stable Stable Stable Ambulatory Status Ambulatory Ambulatory Ambulatory Transportation Private Auto Private Auto Private Auto Medication Reconcilliation completed & No provided to patient/care provider Clinical Summary of Care Provided Yes Assessment/Plan Assessment/Plan (1) Diabetic ulcer of foot associated with diabetes mellitus due to underlying condition, limited to breakdown of skin: CODE(S): E08.621 - Diabetes mellitus due to underlying condition with foot ulcer; L97.501 - Non-pressure chronic ulcer of other part of unspecified foot limited to breakdown of skin QUALIFIERS: Diabetic foot ulcer location: toe Laterality: left Qualified Code(s): E08.621 - Diabetes mellitus due to underlying condition with foot ulcer; L97.521 - Non-pressure chronic ulcer of other part of left foot limited to breakdown of skin (2) Uncontrolled diabetes mellitus with hyperglycemia: CODE(S): E11.65 - Type 2 diabetes mellitus with hyperglycemia PLAN: Wash feet with antibacterial soap and water like Dial apply fibrocol moistened cover with gauze and tape to right great toe and dressing We will hold EpiFix till infection and A1c are lowered She has finished her antibiotic Double layer Tubigrip to bilateral lower legs Applied a postop shoe to right foot Also gave her foot covers for in-house wearing of shoes Follow-up in 1 week (3) Diabetic foot ulcer associated with type 2 diabetes mellitus: CODE(S): E11.621 - Type 2 diabetes mellitus with foot ulcer; L97.509 - Non-pressure chronic ulcer of other part of unspecified foot with unspecified severity
[2023-04-24 08:43] VITALS: BP 104/61; PULSE 75; TEMP 36.2; BMI 37.7
--- NOTE | 2023-04-24 10:46 | PCM.WC.PN ---
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 Patient does not manage her blood sugars well is on insulin for her type II. That is not managed well. Her blood sugars run at least greater than 500. States her A1c is well over 14. She currently sees Dr. Alonso podiatry out of [facility]. Her biggest problem is callusing over her bony prominences of her foot. She has some cracked heels and a crack underneath her great toes. All the wounds seem to be superficial. Patient wears crocs and she also wears no shoes when she is in the house at the care home. Since the last time I saw her she has developed an ulcer under her right great toe that has positive depth. Looks like it was a blister that has opened. We will obtain cultures at this time. Patient does complain of pain up in her lower extremity but has a lot of edema. Progress of Wound: Right great toe continues to improve with the Fibracol it flatter just needs to get a piece of skin over top and it should be healed. No sign of infection she still calluses around the wound which we debrided weekly. Subjective Subjective Still waiting to see endocrinology for her blood sugars Patient is happy with the toe healing Objective Data Objective Data Same as before the flatness of the toe wound is very good just needs a piece of skin over She developed slight callusing over top and pared down with a 15 blade. We will get her a new postop shoe also Vital Signs: Vital Signs Temp Pulse Resp BP O2 Del Method 97.1 F L 75 16 104/61 Room Air 04/24/23 08:43 04/24/23 08:43 04/17/23 09:46 04/24/23 08:43 04/17/23 09:46 Oxygen Delivery Method Room Air Weight: 263 lb Body Mass Index (BMI) 37.7 Lab / Micro Data Attestation: I reviewed the patient's lab results. Physical Exam Const alert, oriented x3 and no apparent distress Constitutional Narrative: Obese, middle-aged white female sitting up in bed, appears much older than stated age, appears comfortable and nontoxic, nursing at bedside, at bedside General Appearance: cooperative, comfortable, well kempt and well developed Exam Limitations: no limitations Nutritional Appearance: obese HEENT normocephalic, head/scalp atraumatic, hearing grossly normal bilaterally and moist oral mucous membranes HEENT Narrative: Mallampati 2-3, no thrush, Dobbhoff in right nares Eyes PERRL, EOMs intact bilaterally and no scleral icterus; Negative for conjunctivae normal Eyes Narrative: Mildly pale conjunctiva bilaterally, no scleral icterus Neck no lymphadenopathy, supple and no JVD Neck Narrative: Trachea midline, no thyroid enlargement General: trachea midline Lymph Lymphatic: no lymphadenopathy noted Resp normal respiratory effort, no retractions, no use of accessory muscles and clear to auscultation bilaterally Resp Narrative: Diminished at bases bilaterally but otherwise clear Effort and Inspection: able to speak in complete sentences and symmetric chest movement Auscultation: Negative for crackles, rales, rhonchi or wheezes Cardio regular rate, regular rhythm, S1 normal heart sound, S2 normal heart sound, no murmurs, no rub, no gallops, no clicks and no JVD Rate: tachycardic GI normal to inspection, nondistended, normoactive bowel sounds, soft to palpation and non-distended GI Narrative: Tenderness in the epigastric and left upper quadrant during palpation Inspection: abdominal distention Auscultation: hypoactive bowel sounds Palpation: firm and tender epigastric, LUQ and RUQ Extremity normal to inspection and full ROM; Negative for no pedal edema Skin Skin Narrative: Right great toe open wound. Fissures and cracks and bottom of right and left foot and heel area. lateral lower extremities all edematous General Skin Exam: turgor normal Wounds: wounds noted Wound Narrative: Open wound or DFU right great toe Neuro oriented x3, CN's II-XII intact bilaterally, moves all extremities, no focal motor deficits and no sensory deficits noted Sensorium / Orientation: awake and alert Speech: speech normal Psych affect normal Psych Narrative: Anxious but appropriate Debridement Note Debridement Note Wound debrided: Right great toe DFU Type of Debridement: Excisional debridement Anesthesia Used: 5% Lidocaine Gel Depth: Down to and including healthy tissue Percentage of wound debrided: 100 Instrument Used: 5mm curette and #15 blade Tissue Removed: Fibrin and callus Severity: Limited To Skin Breakdown Amount of bleeding with debridement: None Bleeding Controlled with: Pressure Patient tolerated procedure: Patient tolerated procedure well Post-Debridement Measurements and Additional Note: Post-Debridement Measurements/Treatment WC - Nurse 1 - General Ulcer Assessment Start: 04/03/23 10:02 Freq: Status: Active Protocol: EMEKA Activity Type Activity Date Activity User E-sign Co-sign Detail Recorded Client Recorded Date Recorded By Document 04/03/23 10:02 [facility] [id number] 04/03/23 10:10 BM Document 04/10/23 09:50 [facility] [id number] 04/10/23 09:54 BM Document 04/17/23 09:46 [facility] [id number] 04/17/23 09:52 BM Document 04/24/23 08:43 [place] [id number] 04/24/23 08:45 AK 04/03/23 04/10/23 04/17/23 10:02 09:50 09:46 - Today's Visit Information Type of service Follow-up Visit Follow-up Visit Follow-up Visit (Physician/OCCUPATIONAL THERAPIST HOME BASED (Physician/OCCUPATIONAL THERAPIST HOME BASED (Physician/OCCUPATIONAL THERAPIST HOME BASED ) ) ) Arrival Mode Ambulatory Ambulatory Ambulatory Transfer Assistance None None None Patient Identification Verified (Name & Yes Yes Yes ) Patient Requires Transmission-Based No No No Precautions Finger Stick Blood Sugar(mg/dl) (if 384 indicated): Blood Sugar Stated by Patient Height and Weight Body Mass Index (BMI) 37.7 37.7 37.7 BMI Classification Obese Obese Obese Vital Signs Temperature (97.8 F-99.1 F) 97.1 F L 96.2 F L 96.6 F L Temperature Source Temporal Temporal Temporal Pulse Rate (60-100) 78 80 74 Pulse Location Monitor Monitor Monitor Respiratory Rate (12-18) 16 16 16 Respiratory rate source Observation Observation Observation Oxygen Delivery Method Room Air Room Air Room Air Blood Pressure (90/60-120/80) 101/65 125/77 H 106/65 Blood Pressure Mean (mm Hg) 77 93 78 Source Monitor Monitor Monitor Position Sitting Sitting Sitting Blood Pressure Location Right Arm Left Arm Right Arm History Since Last Visit- (Skip if this is Patient's initial visit) Have you changed medications since your No No No last visit? Any new allergies or adverse reactions No No No Had a fall/change in ADL's that may No No No increase risk of falls Signs or symptoms of abuse and/or No No No neglect since last visit Have you been in the hospital since your No Yes No last visit? Has dressing in place as prescribed Yes Yes Yes Has compression in place as prescribed N/A Yes N/A Has offloadiing in place as prescribed N/A N/A N/A Experienced any changes in pain level or No No No management Left Footwear Regular Shoe Regular Shoe Regular Shoe Right Footwear Regular Shoe Regular Shoe Regular Shoe Pain Scale: 0-10 Numeric Is Patient Pain Free? Yes Yes Yes 04/24/23 08:43 - Today's Visit Information Type of service Follow-up Visit (Physician/OCCUPATIONAL THERAPIST HOME BASED ) Arrival Mode Ambulatory Transfer Assistance Patient Identification Verified (Name & Yes ) Patient Requires Transmission-Based No Precautions Finger Stick Blood Sugar(mg/dl) (if indicated): Blood Sugar Height and Weight Body Mass Index (BMI) 37.7 BMI Classification Obese Vital Signs Temperature (97.8 F-99.1 F) 97.1 F L Temperature Source Temporal Pulse Rate (60-100) 75 Pulse Location Monitor Respiratory Rate (12-18) Respiratory rate source Oxygen Delivery Method Blood Pressure (90/60-120/80) 104/61 Blood Pressure Mean (mm Hg) 75 Source Monitor Position Blood Pressure Location History Since Last Visit- (Skip if this is Patient's initial visit) Have you changed medications since your No last visit? Any new allergies or adverse reactions No Had a fall/change in ADL's that may No increase risk of falls Signs or symptoms of abuse and/or No neglect since last visit Have you been in the hospital since your No last visit? Has dressing in place as prescribed Yes Has compression in place as prescribed N/A Has offloadiing in place as prescribed N/A Experienced any changes in pain level or No management Left Footwear Regular Shoe Right Footwear Regular Shoe Pain Scale: 0-10 Numeric Is Patient Pain Free? Yes - Nurse 1 - General Ulcer Measurement Start: 04/03/23 10:02 Freq: Status: Active Protocol: Activity Type Activity Date Activity User E-sign Co-sign Detail Recorded Client Recorded Date Recorded By Document 04/03/23 10:02 [facility] [id number] 04/03/23 10:10 BM Document 04/10/23 09:50 [facility] [id number] 04/10/23 09:54 [facility] Document 04/17/23 09:46 [facility] [id number] 04/17/23 09:52 [facility] Document 04/24/23 08:43 AK [id number] 04/24/23 08:45 AK 04/03/23 04/10/23 04/17/23 10:02 09:50 09:46 Wound Center Nurse 1 #3- R GR TOE PLANTAR -Combined with other wound No No No -Current Size (cm) - Length 0.8 0.6 0.5 -Current Size (cm) - Width 1.1 0.8 0.6 -Current Size (cm) - Depth 0.1 0.2 0.2 -Total Square Cm 0.88 0.48 0.30 -Date of Last Picture (Recall this 04/03/23 04/10/23 04/17/23 field) -Photo Taken Yes Yes Yes -Epithelialization None Present None Present Small 1-33% -Tunneling No No No -Undermining/Tunneling No No No -Circular Undermining No No No -Change in Wound Grade/Stage -Exudate Amt Small Medium Medium -Exudate Type Serosanguineous Serosanguineous Serosanguineous -Wound Margin Flat & Intact Distinct, Distinct, Outline Outline Attached Attached -Granulation Amt Large (67-100%) Large (67-100%) Large (67-100%) -Granulation Quality [place] -Slough/Fibrin Yes Yes -Necrosis Amt Small (1-33%) Small (1-33%) Small (1-33%) -Necrotic Tissue Type Adherent Slough Adherent Slough Adherent Slough -Structure Exposed -Texture (Megan-wound Skin Appearance) Assessed,Callus Assessed,Callus Assessed,Callus ,Scarring ,Scarring ,Scarring -Moisture (Megan-wound Skin Appearance) Assessed,Dry/ Assessed Assessed,Dry/ Scaly Scaly -Color (Megan-wound Skin Appearance) Assessed, Assessed Assessed Erythema -Temperature (Megan-wound Skin No Abnormality No Abnormality No Abnormality Appearance) (Pt Warm) (Pt Warm) (Pt Warm) -Tenderness on Palpation (Megan-wound No No No Skin Appearance) -Ulcer Cleansing Rinsed/ Rinsed/ Rinsed/ Irrigated with Irrigated with Irrigated with Saline Saline Saline -Foul Odor after Cleansing No No No -Anesthetic Used 5% Lidocaine 5% Lidocaine 5% Lidocaine Gel Gel Gel Lower Limb Edema Present Yes Right Calf (cm) 42.7 Right Ankle (cm) 28.3 04/24/23 08:43 Wound Center Nurse 1 #3- R GR TOE PLANTAR -Combined with other wound No -Current Size (cm) - Length 0.5 -Current Size (cm) - Width 0.3 -Current Size (cm) - Depth 0.2 -Total Square Cm 0.15 -Date of Last Picture (Recall this 04/24/23 field) -Photo Taken Yes -Epithelialization -Tunneling No -Undermining/Tunneling No -Circular Undermining No -Change in Wound Grade/Stage No -Exudate Amt Small -Exudate Type Serosanguineous -Wound Margin Distinct, Outline Attached -Granulation Amt Large (67-100%) -Granulation Quality [place] -Slough/Fibrin Yes -Necrosis Amt Small (1-33%) -Necrotic Tissue Type Adherent Slough -Structure Exposed Joint -Texture (Megan-wound Skin Appearance) Assessed,Callus -Moisture (Megan-wound Skin Appearance) No Abnormality, Assessed -Color (Megan-wound Skin Appearance) No Abnormality, Assessed -Temperature (Megan-wound Skin No Abnormality Appearance) (Pt Warm) -Tenderness on Palpation (Megan-wound No Skin Appearance) -Ulcer Cleansing Rinsed/ Irrigated with Saline -Foul Odor after Cleansing No -Anesthetic Used 5% Lidocaine Gel Lower Limb Edema Present Right Calf (cm) Right Ankle (cm) WC - Nurse 2 - General Ulcer CM Notes Start: 04/03/23 10:02 Freq: Status: Active Protocol: Activity Type Activity Date Activity User E-sign Co-sign Detail Recorded Client Recorded Date Recorded By Document 04/03/23 10:27 MW Desktop 04/03/23 10:31 MW Document 04/10/23 10:04 MW [id number] 04/10/23 10:19 MW Document 04/17/23 10:06 MW [id number] 04/17/23 10:08 MW Document 04/24/23 08:54 PL [id number] 04/24/23 08:56 PL 04/03/23 04/10/23 04/17/23 10:27 10:04 10:06 Wound Center Nurse 2 #3- R GR TOE PLANTAR -Time 10:27 10:04 10:06 -Correct Patient Yes Yes Yes -Correct Side, Site, Position Yes Yes Yes -Correct Procedure Yes Yes Yes -Procedure Performed Yes Yes Yes -Type of Procedure Debridement Debridement Debridement -Clinical Debridement Subcutaneous Subcutaneous Subcutaneous -Tissue Removed Subcutaneous Subcutaneous Subcutaneous -Post Debridement (cm) - Length 0.8 0.5 0.6 -Post Debridement (cm) - Width 0.9 0.5 0.5 -Post Debridement (cm) - Depth 0.1 0.1 0.1 -Total Square (Post) (cm) 0.72 0.25 0.30 -Area of Debridement (cm) - Length 0.8 0.5 0.6 -Area of Debridement (cm) - Width 0.9 0.5 0.5 -Total Square (Area) (cm) 0.72 0.25 0.30 -Tunneling No No No -Undermining/Tunneling No No No -Circular Undermining No No No -Wound/Ulcer Outcome Not Healed Not Healed Not Healed -Ulcer Cleansing Rinsed/ Rinsed/ Rinsed/ Irrigated with Irrigated with Irrigated with Saline Saline Saline -Foul Odor after Cleansing No No No -Bioengineered Tissue No No No -Bleeding Controlled with Pressure Pressure Pressure -Treatment Response Procedure Procedure Procedure Tolerated Well Tolerated Well Tolerated Well -Offloading No No No -Debridement - Subq, 1st 20sq cm Yes Yes Yes Pain Scale: 0-10 Numeric Is Patient Pain Free? Yes Yes Yes 04/24/23 08:54 Wound Center Nurse 2 #3- R GR TOE PLANTAR -Time 08:45 -Correct Patient Yes -Correct Side, Site, Position Yes -Correct Procedure Yes -Procedure Performed Yes -Type of Procedure Debridement -Clinical Debridement Subcutaneous -Tissue Removed Subcutaneous -Post Debridement (cm) - Length 0.4 -Post Debridement (cm) - Width 0.3 -Post Debridement (cm) - Depth 0.1 -Total Square (Post) (cm) 0.12 -Area of Debridement (cm) - Length 0.4 -Area of Debridement (cm) - Width 0.3 -Total Square (Area) (cm) 0.12 -Tunneling No -Undermining/Tunneling No -Circular Undermining No -Wound/Ulcer Outcome Not Healed -Ulcer Cleansing Rinsed/ Irrigated with Saline -Foul Odor after Cleansing No -Bioengineered Tissue No -Bleeding Controlled with Pressure -Treatment Response Procedure Tolerated Well -Offloading -Debridement - Subq, 1st 20sq cm Yes Pain Scale: 0-10 Numeric Is Patient Pain Free? Yes - Nurse 3 - General Ulcer D/C NN Start: 04/03/23 10:02 Freq: Status: Active Protocol: Activity Type Activity Date Activity User E-sign Co-sign Detail Recorded Client Recorded Date Recorded By Document 04/03/23 10:44 [facility] [id number] 04/03/23 10:44 [facility] Document 04/10/23 10:24 BMF [id number] 04/10/23 10:25 BMF Document 04/17/23 10:23 RB [id number] 04/17/23 10:24 RB Document 04/24/23 09:10 AK [id number] 04/24/23 09:11 AK 04/03/23 04/10/23 04/17/23 10:44 10:24 10:23 Wound Care Center Nurse 3 #3- R GR TOE PLANTAR -Ulcer Cleansing Rinsed/ Rinsed/ Wound Cleanser Irrigated with Irrigated with Saline Saline -Foul Odor after Cleansing No No No -Negative Pressure Wound Therapy -Primary Dressing Applied Fibracol Plus Fibracol Plus 4x4 4x4 -Other Dressing fibracol plus -Primary Dressing Covered/Secured with Dry Gauze, Dry Gauze, Dry Gauze & Secured with Secured with Roll Gauze, Tape Tape Secured with Tape -Fibracol Plus 4x4 1 1 ble -Tubular Bandage Double Layer Double Layer -Size of Tubigrip Used Size E Size E -Size E ($) 2 2 -Other pt has mult sets at home and will apply there Treatment Response Procedure Procedure Procedure Tolerated Well Tolerated Well Tolerated Well Pain Scale: 0-10 Numeric Is Patient Pain Free? Yes Yes Yes WC - Visit Discharge Discharge Condition Stable Stable Stable Ambulatory Status Ambulatory Ambulatory Ambulatory Transportation Private Auto Private Auto Private Auto Medication Reconcilliation completed & No provided to patient/care provider Clinical Summary of Care Provided Yes 04/24/23 09:10 Wound Care Center Nurse 3 #3- R GR TOE PLANTAR -Ulcer Cleansing Rinsed/ Irrigated with Saline -Foul Odor after Cleansing No -Negative Pressure Wound Therapy N/A -Primary Dressing Applied Fibracol Plus 4x4 -Other Dressing [place] -Primary Dressing Covered/Secured with Dry Gauze -Fibracol Plus 4x4 1 ble -Tubular Bandage -Size of Tubigrip Used -Size E ($) -Other Treatment Response Pain Scale: 0-10 Numeric Is Patient Pain Free? Yes WC - Visit Discharge Discharge Condition Stable Ambulatory Status Ambulatory Transportation Private Auto Medication Reconcilliation completed & Yes provided to patient/care provider Clinical Summary of Care Provided Yes Assessment/Plan Assessment/Plan (1) Diabetic ulcer of foot associated with diabetes mellitus due to underlying condition, limited to breakdown of skin: CODE(S): E08.621 - Diabetes mellitus due to underlying condition with foot ulcer; L97.501 - Non-pressure chronic ulcer of other part of unspecified foot limited to breakdown of skin QUALIFIERS: Diabetic foot ulcer location: toe Laterality: left Qualified Code(s): E08.621 - Diabetes mellitus due to underlying condition with foot ulcer; L97.521 - Non-pressure chronic ulcer of other part of left foot limited to breakdown of skin (2) Uncontrolled diabetes mellitus with hyperglycemia: CODE(S): E11.65 - Type 2 diabetes mellitus with hyperglycemia QUALIFIERS: Diabetes mellitus type: type 2 Qualified Code(s): E11.65 - Type 2 diabetes mellitus with hyperglycemia PLAN: Wash feet with antibacterial soap and water like Dial apply fibrocol moistened cover with gauze and tape to right great toe and dressing We will hold EpiFix till infection and A1c are lowered She has finished her antibiotic Double layer Tubigrip to bilateral lower legs Applied a postop shoe to right foot Also gave her foot covers for in-house wearing of shoes Follow-up in 1 week (3) Diabetic foot ulcer associated with type 2 diabetes mellitus: CODE(S): E11.621 - Type 2 diabetes mellitus with foot ulcer; L97.509 - Non-pressure chronic ulcer of other part of unspecified foot with unspecified severity QUALIFIERS: Diabetic foot ulcer location: toe Laterality: right Non-pressure ulcer stage: limited to breakdown of skin Qualified Code(s): E11.621 - Type 2 diabetes mellitus with foot ulcer; L97.511 - Non-pressure chronic ulcer of other part of right foot limited to breakdown of skin
== END 2023-04-26 23:59 | disposition home or self-care (01) ==
LOC: WC 09:00
PROVIDERS: PCP Student in an Organized Health Care Education/Training Program; Referring Provider Student in an Organized Health Care Education/Training Program; Visit Provider Nurse Practitioner
DX: E11.621 Type 2 diabetes mellitus with foot ulcer (principal); E08.621 Diabetes mellitus due to underlying condition with foot ulcer; L97.511 Non-pressure chronic ulcer of other part of right foot limited to breakdown of skin; L97.521 Non-pressure chronic ulcer of other part of left foot limited to breakdown of skin; E11.65 Type 2 diabetes mellitus with hyperglycemia; Z79.4 Long term (current) use of insulin
CPT/HCPCS: 11042

== ENCOUNTER 2023-05-01 09:29 | Outpatient (RCR) | payer OTHER, SELFPAY ==
[2023-04-27 01:33] VITALS: BP 104/61; PULSE 75; RESP 16; TEMP 36.2; BMI 37.7
[2023-05-01 09:46] VITALS: BP 132/83; PULSE 85; RESP 16; TEMP 35.9; BMI 37.7
--- NOTE | 2023-05-01 12:27 | PN.PCM_ITS ---
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 Patient does not manage her blood sugars well is on insulin for her type II. That is not managed well. Her blood sugars run at least greater than 500. States her A1c is well over 14. She currently sees Dr. Alonso podiatry out of [facility]. Her biggest problem is callusing over her bony prominences of her foot. She has some cracked heels and a crack underneath her great toes. All the wounds seem to be superficial. Patient wears crocs and she also wears no shoes when she is in the house at the prison. Since the last time I saw her she has developed an ulcer under her right great toe that has positive depth. Looks like it was a blister that has opened. We will obtain cultures at this time. Patient does complain of pain up in her lower extremity but has a lot of edema. 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 Objective Data Objective Data We will have her cover it with a gauze dressing for another week but its pretty well have skin on it looks good patient will be discharged Vital Signs: Vital Signs Temp Pulse Resp BP O2 Del Method 96.7 F L 85 16 132/83 H Room Air 05/01/23 09:46 05/01/23 09:46 05/01/23 09:46 05/01/23 09:46 05/01/23 09:46 Oxygen Delivery Method Room Air Weight: 263 lb Body Mass Index (BMI) 37.7 Physical Exam Const alert, oriented x3 and no apparent distress Constitutional Narrative: Obese, middle-aged white female sitting up in bed, appears much older than stated age, appears comfortable and nontoxic, nursing at bedside, at bedside General Appearance: cooperative, comfortable, well kempt and well developed Exam Limitations: no limitations Nutritional Appearance: obese HEENT normocephalic, head/scalp atraumatic, hearing grossly normal bilaterally and moist oral mucous membranes HEENT Narrative: Mallampati 2-3, no thrush, Dobbhoff in right nares Eyes PERRL, EOMs intact bilaterally and no scleral icterus; Negative for conjunctivae normal Eyes Narrative: Mildly pale conjunctiva bilaterally, no scleral icterus Neck no lymphadenopathy, supple and no JVD Neck Narrative: Trachea midline, no thyroid enlargement General: trachea midline Lymph Lymphatic: no lymphadenopathy noted Resp normal respiratory effort, no retractions, no use of accessory muscles and clear to auscultation bilaterally Resp Narrative: Diminished at bases bilaterally but otherwise clear Effort and Inspection: able to speak in complete sentences and symmetric chest movement Auscultation: Negative for crackles, rales, rhonchi or wheezes Cardio regular rate, regular rhythm, S1 normal heart sound, S2 normal heart sound, no murmurs, no rub, no gallops, no clicks and no JVD Rate: tachycardic GI normal to inspection, nondistended, normoactive bowel sounds, soft to palpation and non-distended GI Narrative: Tenderness in the epigastric and left upper quadrant during palpation Inspection: abdominal distention Auscultation: hypoactive bowel sounds Palpation: firm and tender epigastric, LUQ and RUQ Extremity normal to inspection and full ROM; Negative for no pedal edema Skin Skin Narrative: Right great toe open wound. Fissures and cracks and bottom of right and left foot and heel area. lateral lower extremities all edematous General Skin Exam: turgor normal Wounds: wounds noted Wound Narrative: Open wound or DFU right great toe Neuro oriented x3, CN's II-XII intact bilaterally, moves all extremities, no focal motor deficits and no sensory deficits noted Sensorium / Orientation: awake and alert Speech: speech normal Psych affect normal Psych Narrative: Anxious but appropriate Debridement Note Debridement Note No debridement was completed: No debridement was completed today Post-Debridement Measurements and Additional Note: Post-Debridement Measurements/Treatment - Nurse 1 - General Ulcer Assessment Start: 05/01/23 09:43 Freq: Status: Active Protocol: EMEKA Activity Type Activity Date Activity User E-sign Co-sign Detail Recorded Client Recorded Date Recorded By Document 05/01/23 09:46 [facility] [id number] 05/01/23 09:50 [facility] 05/01/23 09:46 - Today's Visit Information Type of service 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 ) Arrival Mode Ambulatory Transfer Assistance None Patient Identification Verified (Name & Yes ) Patient Requires Transmission-Based No Precautions Height and Weight Body Mass Index (BMI) 37.7 BMI Classification Obese Vital Signs Temperature (97.8 F-99.1 F) 96.7 F L Temperature Source Temporal Pulse Rate (60-100) 85 Pulse Location Monitor Respiratory Rate (12-18) 16 Respiratory rate source Observation Oxygen Delivery Method Room Air Blood Pressure (90/60-120/80) 132/83 H Blood Pressure Mean (mm Hg) 99 Source Monitor Position Sitting Blood Pressure Location Right Arm History Since Last Visit- (Skip if this is Patient's initial visit) Have you changed medications since your No last visit? Any new allergies or adverse reactions No Had a fall/change in ADL's that may No increase risk of falls Signs or symptoms of abuse and/or No neglect since last visit Have you been in the hospital since your No last visit? Has dressing in place as prescribed Yes Has compression in place as prescribed No Has offloadiing in place as prescribed N/A Experienced any changes in pain level or No management Left Footwear Regular Shoe Right Footwear Regular Shoe Pain Scale: 0-10 Numeric Is Patient Pain Free? Yes WC - Nurse 1 - General Ulcer Measurement Start: 05/01/23 09:43 Freq: Status: Active Protocol: Activity Type Activity Date Activity User E-sign Co-sign Detail Recorded Client Recorded Date Recorded By Document 05/01/23 09:46 [facility] [id number] 05/01/23 09:50 [facility] 05/01/23 09:46 Wound Center Nurse 1 #3- R GR TOE PLANTAR -Combined with other wound No -Current Size (cm) - Length 0.3 -Current Size (cm) - Width 0.2 -Current Size (cm) - Depth 0.2 -Total Square Cm 0.06 -Date of Last Picture (Recall this 05/01/23 field) -Photo Taken Yes -Epithelialization Small 1-33% -Tunneling No -Undermining/Tunneling No -Circular Undermining No -Exudate Amt Small -Exudate Type Serosanguineous -Wound Margin Distinct, Outline Attached -Granulation Amt Large (67-100%) -Granulation Quality [place] -Slough/Fibrin Yes -Necrosis Amt Small (1-33%) -Necrotic Tissue Type Adherent Slough -Texture (Megan-wound Skin Appearance) Assessed,Callus ,Scarring -Moisture (Megan-wound Skin Appearance) Assessed,Dry/ Scaly -Color (Megan-wound Skin Appearance) Assessed -Temperature (Megan-wound Skin No Abnormality Appearance) (Pt Warm) -Tenderness on Palpation (Megan-wound No Skin Appearance) -Ulcer Cleansing Rinsed/ Irrigated with Saline -Foul Odor after Cleansing No -Anesthetic Used 5% Lidocaine Gel - Nurse 2 - General Ulcer CM Notes Start: 05/01/23 09:43 Freq: Status: Active Protocol: Activity Type Activity Date Activity User E-sign Co-sign Detail Recorded Client Recorded Date Recorded By Document 05/01/23 10:04 MW [id number] 05/01/23 10:06 MW 05/01/23 10:04 Wound Center Nurse 2 -Time 10:05 -Correct Patient Yes -Correct Side, Site, Position Yes -Correct Procedure Yes -Procedure Performed No -Post Debridement (cm) - Length 0 -Post Debridement (cm) - Width 0 -Post Debridement (cm) - Depth 0 -Total Square (Post) (cm) 0 -Wound/Ulcer Outcome Healed- Epithelialized Pain Scale: 0-10 Numeric Is Patient Pain Free? Yes - Nurse 3 - General Ulcer D/C NN Start: 05/01/23 09:43 Freq: Status: Active Protocol: Activity Type Activity Date Activity User E-sign Co-sign Detail Recorded Client Recorded Date Recorded By Document 05/01/23 10:10 MW [id number] 05/01/23 10:11 MW 05/01/23 10:10 Wound Care Center Nurse 3 #3- R GR TOE PLANTAR -Ulcer Cleansing Not Cleansed -Primary Dressing Covered/Secured with Dry Gauze, Secured with Tape -Other Covering coban Treatment Response Procedure Tolerated Well Pain Scale: 0-10 Numeric Is Patient Pain Free? Yes Teaching: Wound Center Discharge Instructions -Person Taught Patient -Teaching Method Discussion -Response to teaching Verbalize understanding Dressing Your Wound -Person Taught Patient -Teaching Method Discussion -Response to teaching Verbalize understanding WC - Visit Discharge Discharge Condition Stable Ambulatory Status Ambulatory Transportation Private Auto Accompanied by self Medication Reconcilliation completed & No provided to patient/care provider Clinical Summary of Care Provided Yes Assessment/Plan Assessment/Plan (1) Diabetic ulcer of foot associated with diabetes mellitus due to underlying condition, limited to breakdown of skin: CODE(S): E08.621 - Diabetes mellitus due to underlying condition with foot ulcer; L97.501 - Non-pressure chronic ulcer of other part of unspecified foot limited to breakdown of skin QUALIFIERS: Diabetic foot ulcer location: toe Laterality: left Q ualified Code(s): E08.621 - Diabetes mellitus due to underlying condition with foot ulcer; L97.521 - Non-pressure chronic ulcer of other part of left foot limited to breakdown of skin (2) Uncontrolled diabetes mellitus with hyperglycemia: CODE(S): E11.65 - Type 2 diabetes mellitus with hyperglycemia QUALIFIERS: Diabetes mellitus type: type 2 Qualified Code(s): E11.65 - Type 2 diabetes mellitus with hyperglycemia PLAN: Discharge from the wound center follow-up as needed May cover the toe with gauze dressing for another week protect new skin. (3) Diabetic foot ulcer associated with type 2 diabetes mellitus: CODE(S): E11.621 - Type 2 diabetes mellitus with foot ulcer; L97.509 - Non-pressure chronic ulcer of other part of unspecified foot with unspecified severity QUALIFIERS: Diabetic foot ulcer location: toe Laterality: right Non-pressure ulcer stage: limited to breakdown of skin Qualified Code(s): E11.621 - Type 2 diabetes mellitus with foot ulcer; L97.511 - Non-pressure chronic ulcer of other part of right foot limited to breakdown of skin
== END 2023-05-03 11:55 | disposition home or self-care (01) ==
LOC: WC 09:29
PROVIDERS: PCP Student in an Organized Health Care Education/Training Program; Referring Provider Student in an Organized Health Care Education/Training Program; Visit Provider Nurse Practitioner
DX: Z09 Encounter for follow-up examination after completed treatment for conditions other than malignant neoplasm (principal); E11.65 Type 2 diabetes mellitus with hyperglycemia
CPT/HCPCS: 99212; G0463

== ENCOUNTER 2023-06-26 12:53 | Outpatient (RCR) | payer OTHER, SELFPAY ==
[2023-06-26 13:06] VITALS: BP 117/70; PULSE 74; RESP 18; TEMP 35.6; BMI 38.7
--- NOTE | 2023-06-26 15:38 | PCM.WC.HP ---
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 Patient does not manage her blood sugars well is on insulin for her type II. That is not managed well. Her blood sugars run at least greater than 500. States her A1c is well over 14. She currently sees Dr. Alonso podiatry out of [facility]. Her biggest problem is callusing over her bony prominences of her foot. She has some cracked heels and a crack underneath her great toes. All the wounds seem to be superficial. Patient wears crocs and she also wears no shoes when she is in the house at the penitentiary. Since the last time I saw her she has developed an ulcer under her right great toe that has positive depth. Looks like it was a blister that has opened. We will obtain cultures at this time. Patient does complain of pain up in her lower extremity but has a lot of edema. Progress of Wound: Right hallux wound with callus periwound, erythema with signs of infection. [facility] Medical History Acute necrosis of pancreas Alcohol use Allergies Anemia Anxiety Arthritis Atrial fibrillation Back problem COVID Depression Dietary restriction Excessive bleeding Gastritis GERD (gastroesophageal reflux disease) History of cardiac murmur History of edema History of renal disease HTN (hypertension) Hyperlipidemia Insulin dependent diabetes mellitus Leg cramps Liver disease Migraine Shortness of breath on exertion Sleep apnea Tubular adenoma of colon Vitamin deficiency Wears glasses Wears partial dentures Home Medications aspirin 81 mg tablet,delayed release 81 mg PO DAILY heart health 07/11/20 [History Last Taken 03/12/22] metoprolol tartrate 25 mg tablet 25 mg PO BID blood pressure 07/11/20 [History Last Taken 03/12/22] multivitamin (Daily Multi-Vitamin tablet) 1 tab PO DAILY vitamin 07/11/20 [History Last Taken 03/12/22] insulin glargine 100 unit/mL (3 mL) subcutaneous pen (Lantus Solostar U-100 Insulin) 60 unit subcut QHS DM 03/12/22 [History Last Taken 03/11/22] trazodone 100 mg tablet 200 mg PO QHS sleep 03/12/22 [History Last Taken 03/11/22] ondansetron 4 mg disintegrating tablet 4 mg PO Q8H PRN nausea and vomiting #90 tabs 07/24/22 [Rx Last Taken Unknown] acetaminophen 500 mg tablet 1,000 mg PO BID 08/03/22 [History Last Taken Unknown] docusate sodium 100 mg tablet 100 mg PO BID 08/03/22 [History Last Taken Unknown] magnesium oxide 400 mg PO DAILY 08/03/22 [History Last Taken Unknown] metaxalone 400 mg tablet 800 mg PO TID 08/03/22 [History Last Taken Unknown] pantoprazole 40 mg tablet,delayed release 40 mg PO DAILY 08/03/22 [History Last Taken Unknown] rosuvastatin 10 mg tablet 10 mg PO DAILY 08/03/22 [History Last Taken Unknown] hydroxyzine HCl 50 mg tablet 50 mg PO Q8 09/07/22 [History Last Taken Unknown] insulin lispro 100 unit/mL subcutaneous pen (Humalog KwikPen (U-100) Insulin) 45 unit subcut TIDCM 09/07/22 [History Last Taken Unknown] pregabalin 75 mg capsule (Lyrica) 75 mg PO QHS 09/07/22 [History Last Taken Unknown] linaclotide 290 mcg capsule (Linzess) 290 mcg PO DAILY #90 caps 03/19/23 [Rx Last Taken Unknown] bumetanide 1 mg tablet 1 mg PO BID 04/10/23 [History Last Taken Unknown] doxycycline hyclate 100 mg capsule 100 mg PO BID #28 caps 06/26/23 [Rx Last Taken Unknown] Allergy/AdvReac Type Severity Reaction Status Date / Time lactase [From Dairy Aid] Allergy Severe diarrhea Verified 09/07/22 14:33 codeine Allergy Intermediate mental Verified 09/07/22 14:33 status diphenhydramine Allergy Intermediate mental Verified 03/20/23 10:19 [From Benadryl Allergy] status quetiapine [From Seroquel] Allergy Intermediate about Verified 09/07/22 14:33 killed me - went into DKA morphine Allergy Other Verified 03/20/23 10:19 Family History Other Arthritis Cancer Depression Diabetes Kidney disease Surgical History History of esophagogastroduodenoscopy (EGD) History of hysterectomy Hx of colonoscopy Social History Smoking Status: Never smoker alcohol intake: current Vital Signs Vital Signs Vital Signs: 06/26/23 13:06 Temperature 96.1 F L Temperature Source Temporal Pulse Rate 74 Respiratory Rate 18 Blood Pressure 117/70 Blood Pressure Mean 85 Blood Pressure Source Monitor Blood Pressure Position Semi-Fowlers Blood Pressure Location Left Arm Weight Weight: 122.47 kg Body Mass Index (BMI) 38.7 Physical Exam Narrative Vascular: DP and PT pulses are palpable to the right lower extremity. CFT is brisk. Erythema to the right hallux with mild proximal streaking to the first metatarsophalangeal joint. Neurological: Light touch intact. Epicritic sensation and protective sensation is diminished to the right lower extremity. Dermatological: hyperkeratotic preulcerative lesion to the medial aspect of the right hallux. Erythema with mild proximal streaking to the level of the first metatarsophalangeal joint. No probe to bone. Mild malodor. Excisional debridement of the preulcerative callus to the level of the medial aspect right hallux down to and including subcutaneous tissue with #15 blade without incident. Predebridement measurement callus, postdebridement measurement are 2.0 x 1.5 x 0.2 cm. Sanguinous drainage was noted. Chemical cauterization was applied with silver nitrate. Musculoskeletal: HAV deformity appreciated to the right first metatarsal phalangeal joint/foot. No pain on palpation to the full-thickness ulceration after debridement. No pain with calf pressure. Const alert and oriented x3 Debridement Note Debridement Note Debridement Free Text: Excisional debridement of the preulcerative callus to the level of the medial aspect right hallux down to and including subcutaneous tissue with #15 blade without incident. Predebridement measurement callus, postdebridement measurement are 2.0 x 1.5 x 0.2 cm. Sanguinous drainage was noted. Chemical cauterization was applied with silver nitrate. Post-Debridement Measurements and Additional Note: Post-Debridement Measurements/Treatment WC - Nurse 1 - General Ulcer Assessment Start: 06/26/23 13:06 Freq: Status: Active Protocol: WC.LOWEXT Activity Type Activity Date Activity User E-sign Co-sign Detail Recorded Client Recorded Date Recorded By Document 06/26/23 13:06 TARA [id number] 06/26/23 13:18 06/26/23 13:06 - Today's Visit Information Type of service Initial Visit Arrival Mode Ambulatory Transfer Assistance None Patient Identification Verified (Name & Yes ) Patient Requires Transmission-Based No Precautions Height and Weight Height 5 ft 10 in Weight 122.47 kg Weight in Pounds 270.0 lbs Body Mass Index (BMI) 38.7 BMI Classification Obese BSA - Arnold 2.37 Vital Signs Temperature (97.8 F-99.1 F) 96.1 F L Temperature Source Temporal Pulse Rate (60-100) 74 Pulse Location Monitor Respiratory Rate (12-18) 18 Respiratory rate source Observation Blood Pressure (90/60-120/80) 117/70 Blood Pressure Mean 85 Source Monitor Position Semi-Fowlers Blood Pressure Location Left Arm Pain Scale: 0-10 Numeric Is Patient Pain Free? Yes - Nurse 1 - General Ulcer Measurement Start: 06/26/23 13:06 Freq: Status: Active Protocol: Activity Type Activity Date Activity User E-sign Co-sign Detail Recorded Client Recorded Date Recorded By Document 06/26/23 13:06 TARA [id number] 06/26/23 13:18 06/26/23 13:06 Wound Center Nurse 1 4. R hallux -Combined with other wound No -Current Size (cm) - Length 1 -Current Size (cm) - Width 1 -Current Size (cm) - Depth 0.2 -Total Square Cm 1 -Photo Taken Yes -Tunneling No -Undermining/Tunneling No -Circular Undermining No -Exudate Amt Medium -Exudate Type Serosanguineous -Wound Margin Thickened -Granulation Amt Medium (34-66%) -Granulation Quality [place] [employer] -Slough/Fibrin Yes -Necrosis Amt Medium (34-66%) -Necrotic Tissue Type Adherent Slough -Structure Exposed N/A -Texture (Megan-wound Skin Appearance) Callus -Moisture (Megan-wound Skin Appearance) Assessed -Color (Megan-wound Skin Appearance) Assessed -Temperature (Megan-wound Skin No Abnormality Appearance) (Pt Warm) -Tenderness on Palpation (Megan-wound No Skin Appearance) -Ulcer Cleansing Wound Cleanser -Foul Odor after Cleansing No -Anesthetic Used 5% Lidocaine Gel Lower Limb Edema Present Yes Right Calf (cm) 44.5 Right Ankle (cm) 29.5 Left Calf (cm) 45.5 Left Ankle (cm) 31 - Nurse 2 - General Ulcer CM Notes Start: 06/26/23 13:06 Freq: Status: Active Protocol: Activity Type Activity Date Activity User E-sign Co-sign Detail Recorded Client Recorded Date Recorded By Document 06/26/23 13:42 [id number] 06/26/23 13:51 JF 06/26/23 13:42 Wound Center Nurse 2 4. R hallux -Time 13:50 -Correct Patient Yes -Correct Side, Site, Position Yes -Correct Procedure Yes -Procedure Performed Yes -Type of Procedure Debridement -Clinical Debridement Subcutaneous -Tissue Removed Subcutaneous -Post Debridement (cm) - Length 2.0 -Post Debridement (cm) - Width 1.5 -Post Debridement (cm) - Depth 0.2 -Total Square (Post) (cm) 3.00 -Area of Debridement (cm) - Length 2.0 -Area of Debridement (cm) - Width 1.5 -Total Square (Area) (cm) 3.00 -Tunneling No -Undermining/Tunneling No -Circular Undermining No -Wound/Ulcer Outcome Not Healed -Ulcer Cleansing Rinsed/ Irrigated with Saline -Foul Odor after Cleansing No -Bioengineered Tissue No -Bleeding Controlled with Pressure -Treatment Response Procedure Tolerated Well -Offloading No -Debridement - Subq, 1st 20sq cm Yes Pain Scale: 0-10 Numeric Is Patient Pain Free? Yes - Nurse 3 - General Ulcer D/C NN Start: 06/26/23 13:06 Freq: Status: Active Protocol: Activity Type Activity Date Activity User E-sign Co-sign Detail Recorded Client Recorded Date Recorded By Document 06/26/23 13:59 RB [id number] 06/26/23 14:00 RB 06/26/23 13:59 Wound Care Center Nurse 3 4. R hallux -Ulcer Cleansing Rinsed/ Irrigated with Saline -Primary Dressing Applied Promogran Allyn Matter -Other Dressing betadine moistened gauze / coban -Promogran Allyn Matter 1 Right -Tubular Bandage Single Layer -Size of Tubigrip Used Size E -Size E ($) 2 Treatment Response Procedure Tolerated Well Pain Scale: 0-10 Numeric Is Patient Pain Free? Yes Teaching: Wound Center Dressing Your Wound -Person Taught Patient -Teaching Method Discussion, Demonstration -Response to teaching Verbalize understanding WC - Visit Discharge Discharge Condition Stable Ambulatory Status Ambulatory Transportation Private Auto Medication Reconcilliation completed & No provided to patient/care provider Clinical Summary of Care Provided Yes Assessment/Plan Assessment/Plan (1) Diabetic foot ulcer associated with type 2 diabetes mellitus: CODE(S): E11.621 - Type 2 diabetes mellitus with foot ulcer; L97.509 - Non-pressure chronic ulcer of other part of unspecified foot with unspecified severity QUALIFIERS: Diabetic foot ulcer location: toe Laterality: right Non-pressure ulcer stage: limited to breakdown of skin Qualified Code(s): E11.621 - Type 2 diabetes mellitus with foot ulcer; L97.511 - Non-pressure chronic ulcer of other part of right foot limited to breakdown of skin PLAN: Patient was examined evaluated. All findings were discussed with the patient. All questions were answered to the patient satisfaction. Excisional debridement of the preulcerative callus to the level of the medial aspect right hallux down to and including subcutaneous tissue with #15 blade without incident. Predebridement measurement callus, postdebridement measurement are 2.0 x 1.5 x 0.2 cm. Sanguinous drainage was noted. Chemical cauterization was applied with silver nitrate. Order for right foot radiographs were given to the patient today to rule out osteomyelitis of the right hallux. Follow-up in 1 week for evaluation. (2) Uncontrolled diabetes mellitus with hyperglycemia: CODE(S): E11.65 - Type 2 diabetes mellitus with hyperglycemia QUALIFIERS: Diabetes mellitus type: type 2 Qualified Code(s): E11.65 - Type 2 diabetes mellitus with hyperglycemia (3) Cellulitis: CODE(S): L03.90 - Cellulitis, unspecified PLAN: Prescription for doxycycline be sent to the patient's pharmacy. 100 mg capsules to be taken twice per day for 14 days.
== END 2023-06-27 23:59 | disposition home or self-care (01) ==
LOC: WC 12:53
PROVIDERS: PCP Student in an Organized Health Care Education/Training Program; Referring Provider Student in an Organized Health Care Education/Training Program; Visit Provider Podiatrist Foot & Ankle Surgery
DX: E11.621 Type 2 diabetes mellitus with foot ulcer (principal); L97.511 Non-pressure chronic ulcer of other part of right foot limited to breakdown of skin; E11.65 Type 2 diabetes mellitus with hyperglycemia; Z79.4 Long term (current) use of insulin; Z79.82 Long term (current) use of aspirin; L03.90 Cellulitis, unspecified
CPT/HCPCS: 11042; 87070; 87075; 87077; 87186; 87205; 99214; G0463

== ENCOUNTER → 2023-06-28 | Outpatient (CLI) | payer OTHER, SELFPAY ==
--- NOTE | 2023-06-28 11:30 | RAD_ITS ---
STUDY: X-RAY - RIGHT FOOT CLINICAL: Female, 53 years old. Right foot pain TECHNIQUE: 3 view(s) of the foot. COMPARISON: None. FINDINGS: Normal talus and tarsal bones. Calcaneal spurs Normal visualized subtalar, talonavicular, calcaneocuboid, tarsal and tarsometatarsal articulations. Normal metatarsi. There is degenerative arthrosis of the metatarsophalangeal joint of the hallux . Normal tibial and fibular sesamoid bones. Normal interphalangeal joint of the great toe. Normal phalanges of the great toe. Normal second through fifth metatarsophalangeal joints. Age consistent. PA and DIP joint arthrosis. No demonstrated fracture or suspicious osseous lesion. Nonspecific soft tissue swelling medial to the first MTP joint RAD/Foot min 3 Views IMPRESSION: First MTP joint arthrosis with nonspecific soft tissue swelling medial to the first MTP joint and phalanges of the great toe Age consistent PIP and DIP joint arthrosis No demonstrated fracture, or suspicious erosive osseous lesion Calcaneal spurs Electronically Signed: Steven Sanders MD at 14:12 EDT ,
== END | disposition home or self-care (01) ==
PROVIDERS: PCP Student in an Organized Health Care Education/Training Program; Referring Provider Podiatrist Foot & Ankle Surgery; Visit Provider Podiatrist Foot & Ankle Surgery
DX: L97.519 Non-pressure chronic ulcer of other part of right foot with unspecified severity (principal); M79.671 Pain in right foot
CPT/HCPCS: 73630

== ENCOUNTER 2023-07-10 14:00 | Inpatient (IN) | payer OTHER, SELFPAY ==
[2023-07-10] VITALS (10 sets, daily range): BP systolic 85–154; BP diastolic 47–120; PULSE 79–94; RESP 15–21; TEMP 36.2–36.7; O2SAT 93–100; BMI 38.7; BMI 38.2
--- NOTE | 2023-07-10 14:35 | EDS_ITS ---
HPI History of Present Illness Chief Complaint: Hyperglycemia Informant: patient and family Narrative Narrative: Patient presents with hyperglycemia and nausea and vomiting. Patient states that she normally has problems with nausea and vomiting and takes Zofran about twice a day every day. It is gotten a little worse over the last couple days. No blood. No real abdominal pain other than cramping that she gets all the time. She was seen at the wound center for her right great toe which has been a chronic ulcer and is healing. They have seen and evaluated and wrapped it so I did not look at the toe again. I did look at the foot. Patient states her blood sugars are always high. By this meet she means it reads high. She states her hemoglobin A1c is running above 16 which puts her average glucose likely at 500 or more. She was just recently started on some KwikPen insulin at relatively higher dosages. She is seeing her dispatch associate here this coming week and the plan is to get her on an insulin pump. She has evidently had wildly uncontrolled diabetes for quite some time. This is really not out of the ordinary for her. [facility] Medical History Acute necrosis of pancreas Alcohol use Allergies Anemia Anxiety Arthritis Atrial fibrillation Back problem COVID Depression Dietary restriction Excessive bleeding Gastritis GERD (gastroesophageal reflux disease) History of cardiac murmur History of edema History of renal disease HTN (hypertension) Hyperlipidemia Insulin dependent diabetes mellitus Leg cramps Liver disease Migraine Shortness of breath on exertion Sleep apnea Tubular adenoma of colon Vitamin deficiency Wears glasses Wears partial dentures Home Medications aspirin 81 mg tablet,delayed release 81 mg PO DAILY heart health 07/11/20 [History Last Taken 03/12/22] metoprolol tartrate 25 mg tablet 25 mg PO BID blood pressure 07/11/20 [History Last Taken 03/12/22] multivitamin (Daily Multi-Vitamin tablet) 1 tab PO DAILY vitamin 07/11/20 [History Last Taken 03/12/22] insulin glargine 100 unit/mL (3 mL) subcutaneous pen (Lantus Solostar U-100 Insulin) 60 unit subcut QHS DM 03/12/22 [History Last Taken 03/11/22] trazodone 100 mg tablet 200 mg PO QHS sleep 03/12/22 [History Last Taken 03/11/22] ondansetron 4 mg disintegrating tablet 4 mg PO Q8H PRN nausea and vomiting #90 tabs 07/24/22 [Rx Last Taken Unknown] acetaminophen 500 mg tablet 1,000 mg PO BID 08/03/22 [History Last Taken Unknown] docusate sodium 100 mg tablet 100 mg PO BID 08/03/22 [History Last Taken Unknown] magnesium oxide 400 mg PO DAILY 08/03/22 [History Last Taken Unknown] metaxalone 400 mg tablet 800 mg PO TID 08/03/22 [History Last Taken Unknown] pantoprazole 40 mg tablet,delayed release 40 mg PO DAILY 08/03/22 [History Last Taken Unknown] rosuvastatin 10 mg tablet 10 mg PO DAILY 08/03/22 [History Last Taken Unknown] hydroxyzine HCl 50 mg tablet 50 mg PO Q8 09/07/22 [History Last Taken Unknown] insulin lispro 100 unit/mL subcutaneous pen (Humalog KwikPen (U-100) Insulin) 45 unit subcut TIDCM 09/07/22 [History Last Taken Unknown] pregabalin 75 mg capsule (Lyrica) 75 mg PO QHS 09/07/22 [History Last Taken Unknown] linaclotide 290 mcg capsule (Linzess) 290 mcg PO DAILY #90 caps 03/19/23 [Rx Last Taken Unknown] bumetanide 1 mg tablet 1 mg PO BID 04/10/23 [History Last Taken Unknown] doxycycline hyclate 100 mg capsule 100 mg PO BID #28 caps 06/26/23 [Rx Last Taken Unknown] Allergy/AdvReac Type Severity Reaction Status Date / Time lactase [From Dairy Aid] Allergy Severe diarrhea Verified 09/07/22 14:33 codeine Allergy Intermediate mental Verified 09/07/22 14:33 status diphenhydramine Allergy Intermediate mental Verified 03/20/23 10:19 [From Benadryl Allergy] status quetiapine [From Seroquel] Allergy Intermediate about Verified 09/07/22 14:33 killed me - went into DKA morphine Allergy Other Verified 03/20/23 10:19 Family History Other Arthritis Cancer Depression Diabetes Kidney disease Surgical History History of esophagogastroduodenoscopy (EGD) History of hysterectomy Hx of colonoscopy Social History Smoking Status: Never smoker alcohol intake: current ROS ROS ED ROS Narrative A complete review of systems was performed and is negative except as documented in the history of present illness. Some specific details below. Constitutional: No recent fevers or chills. She does have chronic malaise but is not new or different. EYE: No visual complaints or pain. When asked, she does have overall blurring of vision and sees halos at night. But this is likely from her high sugars. It is also chronic. ENT: No difficulty swallowing. No swelling. No pain. CV: No chest pain or palpitations. Respiratory: No dyspnea. No hemoptysis. No difficulty taking breaths. GI: Please see history of present illness. Is still moving bowels. : No frequency dysuria or hematuria. Musculoskeletal: No recent trauma. No pains. Skin: No rash. Nondiaphoretic. Neuro: No weakness or numbness. Endocrine: No polyuria or polydipsia. EXAM Physical Exam Narrative Exam Narrative: CONSTITUTIONAL: Patient is nontoxic in appearance. The patient looks comfortable. HEENT: No notable trauma. Mucous membranes minimally dry. No sinus tenderness. No indication of pain with swallowing. EYES: No conjunctival injection. No proptosis. CARDIOVASCULAR: Regular rate. Regular rhythm. No notable murmur. No JVD. RESPIRATORY: No respiratory distress. Breathing is unlabored. No wheezes. No rhonchi. No rales. No pain with a deep breath. GASTROINTESTINAL: Not distended. Bowel sounds are normal. No tenderness. No guarding. No rebound. No palpable mass. No bruit. GENITOURINARY: No tenderness over the bladder. No CVA tenderness. MUSCULOSKELETAL: Patient has a medicated wrap on her great toe. But its not swollen. Its not moist. There is no erythema streaking proximally. NEUROLOGICAL: Patient is alert and appropriate. No focal deficit noted. SKIN: No noted rashes. No diaphoresis. PSYCHIATRIC: Patient is calm. Mood is appropriate. Const Vital Signs: 07/10/23 14:02 07/10/23 14:13 07/10/23 15:35 Temperature 97.6 F L Temperature Source Tympanic Pulse Rate 90 94 Respiratory Rate 16 19 H Respiratory Pattern Normal Blood Pressure 147/82 H 131/99 H Blood Pressure Mean 103 109 Pulse Ox 99 98 Oxygen Delivery Method Room Air Room Air 07/10/23 16:21 07/10/23 16:08 Temperature 97.9 F Temperature Source Oral Pulse Rate 86 83 Respiratory Rate 15 16 Respiratory Pattern Blood Pressure 128/76 H Blood Pressure Mean 93 Pulse Ox 97 99 Oxygen Delivery Method Room Air Room Air MDM MDM MDM Narrative Medical decision making narrative: Patient CBC shows minimal anemia. Platelets and white count are normal Electrolytes show several abnormalities. Potassium is high but she is getting IV fluids and this should help. Sodium is low but most of this is factitious due to versus significantly high glucose at 895. She also has elevated anion gap with decreased bicarb consistent with DKA. She also has an acute kidney injury with creatinine of 2.63 well above her baseline and I do believe this is acute. Patient's liver function test show mild elevation of alkaline phosphatase but total bilirubin is normal. Urine shows glucose. Patient's acetone level is moderately high. Patient's symptoms are consistent with DKA. She states she takes her insulin. She has had DKA before. I discussed this with the hospitalist she will be admitted. We have an IV giving fluids. But they had difficulty getting a second IV. But I stated they can give her second liter of fluid. We will then start her insulin drip. If required we can always use subcu insulin following on the SQuID protocol. But with pressure and heart rate I do not think a central line will be appropriate in this case Lab Data Attestation: I reviewed the patient's lab results. Labs: Laboratory Results - last 24 hr 07/10/23 14:15 WBC 7.2 RBC 4.04 L Hgb 11.2 L Hct 38.2 MCV 94.6 MCH 27.7 MCHC 29.3 L RDW Std Deviation 49.5 H RDW Coeff of Ilene 14.4 Plt Count 227 MPV 12.0 Immature Gran % (Auto) 0.400 Neut % (Auto) 73.6 H Lymph % (Auto) 22.8 [place] % (Auto) 2.4 Eos % (Auto) 0.1 Baso % (Auto) 0.7 Absolute Neuts (auto) 5.3 Absolute Lymphs (auto) 1.64 Nucleated RBC % 0 Sodium 124 L Potassium 5.6 H Chloride 83 L Carbon Dioxide 18.0 L Anion Gap 23 H BUN 65 H Creatinine 2.63 H Estim Creat Clear Calc 27.06 Est GFR (MDRD) Af Amer 25 L Est GFR (MDRD) Non-Af 20 L BUN/Creatinine Ratio 24.7 H Glucose 895 H* Calcium 9.1 Total Bilirubin 0.70 AST 24 ALT 31 Alkaline Phosphatase 201 H Total Protein 7.7 Albumin 2.9 L Globulin 4.8 H Albumin/Globulin Ratio 0.6 L Lipase 20 Urine Color Straw Urine Clarity Clear Urine pH 6.0 Ur Specific Alkol 1.010 Urine Protein Negative Urine Glucose (UA) 1000 H Urine Ketones 50 H Urine Occult Blood Negative Urine Nitrite Negative Urine Bilirubin Negative Urine Urobilinogen Normal Ur Leukocyte Esterase Negative Urine RBC 0 SEEN Urine WBC 0 SEEN Ur Squamous Epith Cells 0 SEEN Urine Bacteria 0 SEEN Urine Mucus 0 SEEN Acetone Level MODERATE H Critical Care Time Critical Care Time: Yes Critical care time (excluding procedures): 30-74 minutes, Discussing w/Patient &/or Family/Linen Clerk, Discussing w/Consultants, Arranging Admission or Transfer, Performing Direct Patient Care at Bedside and - (35 minutes, discussion with nurse, admitting doctor, patient. Redirecting therapy admission to ICU) Discharge Plan Dx/Rx/DC Orders Clinical Impression: Acute kidney injury, Diabetic keto-acidosis, Dehydration, severe Disposition Disposition: Acute Care [facility]
[2023-07-10 14:45] LABS: Bacteria 0 SEEN /hpf (None Seen); Mucous, Urine 0 SEEN /hpf (<or=2+); Red Blood Cells-Urine 0 SEEN /hpf (0-5); Squamous Epithelial Cells - UA 0 SEEN /hpf (5-10); White Blood Cells 0 SEEN /hpf (0-5)
[2023-07-10 14:47] LABS: Absolute Lymphocyte Count 1.64 X10^3/uL (0.83-4.51); Absolute Neutrophil Count 5.3 X10^3/uL (2.0-7.7); Basophil# 0.05 X10^3/uL; Basophil% 0.7 % (0-1); Color, Urine Straw (Yellow); Eosinophil# 0.01 X10^3/uL; Eosinophils% 0.1 % (0-5); Glucose, Dipstick 1000 mg/dl (Normal); Hematocrit 38.2 % (37-47); Hemoglobin 11.2 g/dL (12.0-15.0); Ketone-Dipstick 50 mg/dl (Negative); Leukocyte Esterase-Dipstick Negative /ul (Negative); Lymphocyte # 1.64 X10^3/ul (0.83-4.51); Lymphocyte % 22.8 % (19-41); Mean Corp Hgb Conc 29.3 g/dL (32-36); Mean Corpuscular Hgb 27.7 pg (27.0-32.0); Mean Corpuscular Volume 94.6 fL (81-99); Monocyte# 0.17 X10^3/uL; Monocyte% 2.4 % (0-10); NRBC Flagged by Analyzer 0 % (0-5); Neutrophil # 5.28 X10^3/uL (2.7-7.7); Neutrophil % 73.6 % (47-70); Nitrite-Dipstick Negative (Negative); Occult Blood-Urine Negative /ul (Negative); Platelet Count 227 K/mm3 (150-450); Protein-Dipstick Negative (Negative); RBC Distribution Width CV 14.4 % (11.6-14.6); RBC Distribution Width SD 49.5 fl (35.1-43.9); Red Blood Count 4.04 M/mm3 (4.2-5.4); Urine Bilirubin Dipstick Negative (Negative); Urine Clarity Clear (Clear); Urine Urobilinogen Normal (Normal); White Blood Count 7.2 K/mm3 (4.4-11.0)
[2023-07-10] MEDS: Ondansetron 4 MG/2 ML Vial IV ×2 (14:47→15:19)
[2023-07-10] MEDS: 0.9% Normal Saline (1000mL) 1,000 ML 1000 ML IV (14:47)
[2023-07-10] MEDS: Insulin Lispro 100 UNIT/ML INSULN.PEN 15 UNIT SC (14:49)
[2023-07-10 15:07] LABS: ALB/GLOB Ratio 0.6 RATIO (0.9-2.4); AST(SGOT) 24 U/L (15-37); Alanine Aminotransfer ALT/SGPT 31 U/L (13-56); Albumin, Serum 2.9 g/dL (3.2-5.0); Alkaline Phosphatase 201 U/L (45-117); Anion Gap 23 (5-15); BUN 65 mg/dL (7-18); BUN/Creat Ratio 24.7 RATIO (10-20); Calcium,Total 9.1 mg/dL (8.5-10.1); Chloride 83 mmol/L (98-107); Creatinine, Serum 2.63 mg/dL (0.55-1.02); EST Glomerular Filtration Rate 20 mL/min (>60); Est Glom Filt Rate - Afr Amer 25 mL/min (>60); Estimated Creatinine Clearance 27.06 ml/min; Globulin 4.8 g/dL (2.2-4.2); Glucose 895 mg/dL (74-106); Lipase 20 U/L (13-75); Potassium 5.6 mmol/L (3.5-5.1); Protein, Total 7.7 g/dL (6.4-8.2); Sodium Level 124 mmol/L (136-145)
[2023-07-10] MEDS: 0.9% Normal Saline (1000mL) 1,000 ML 999 ML IV ×2 (16:15→21:50)
[2023-07-10 16:43] LABS: Bedside Glucose > 500 mg/dL (74-106)
--- NOTE | 2023-07-10 16:59 | PCM.HP.STD ---
HPI - General General Date of Admission: 07/10/23 Date of Service: 07/10/23 Chief Complaint: Nausea, high blood glucose HPI Narrative KORI SHEPHERD, is a 53 F with history of type 2 diabetes mellitus, hypertension, CKD, obesity, gastroparesis, right toe wound, chronic constipation who presented to [facility] 07/10/2023 after being seen in the wound center and having her glucose read as high. In the ED she was found to have a blood glucose of 895, bicarb of 18, anion gap of 23 and an MITCHELL with creatinine of 2.63 up from 1.2. She had ketones in her urine and acetone in her blood and was given insulin and fluids and hospitalist consulted for admission for DKA. Patient evaluated at bedside and reports that over the past 3 to 4 days she has not been eating well so she has not been taking her insulin routinely and has been nauseous for that period of time as well. Reports overall feeling generally unwell. Since coming into the ED she feels slightly better after getting insulin however still feeling generally unwell. She does currently use insulin with meals but did not appear she was using a daily long-acting, is following with endocrinology now and is supposed to be fitted for a insulin pump. Patient denies any chest pain or shortness of breath, has chronic constipation but no changes in bowel or bladder at this time. Intermittent headaches and slight blurring of her vision off and on over the past several days. No other present complaints. She does report that her right toe has been improving following with wound care and has no acute current complaints with this. [facility] Medical History Acute necrosis of pancreas Alcohol use Allergies Anemia Anxiety Arthritis Atrial fibrillation Back problem COVID Depression Dietary restriction Excessive bleeding Gastritis GERD (gastroesophageal reflux disease) History of cardiac murmur History of edema History of renal disease HTN (hypertension) Hyperlipidemia Insulin dependent diabetes mellitus Leg cramps Liver disease Migraine Non-alcoholic cirrhosis Pancreatitis Shortness of breath on exertion Sleep apnea Tubular adenoma of colon Vitamin deficiency Wears glasses Wears partial dentures Home Medications aspirin 81 mg tablet,delayed release 81 mg PO DAILY heart health 07/11/20 [History Last Taken 03/12/22] metoprolol tartrate 25 mg tablet 25 mg PO BID blood pressure 07/11/20 [History Last Taken 03/12/22] multivitamin (Daily Multi-Vitamin tablet) 1 tab PO DAILY vitamin 07/11/20 [History Last Taken 03/12/22] insulin glargine 100 unit/mL (3 mL) subcutaneous pen (Lantus Solostar U-100 Insulin) 60 unit subcut QHS DM 03/12/22 [History Last Taken 03/11/22] trazodone 100 mg tablet 200 mg PO QHS sleep 03/12/22 [History Last Taken 03/11/22] ondansetron 4 mg disintegrating tablet 4 mg PO Q8H PRN nausea and vomiting #90 tabs 07/24/22 [Rx Last Taken Unknown] acetaminophen 500 mg tablet 1,000 mg PO BID 08/03/22 [History Last Taken Unknown] docusate sodium 100 mg tablet 100 mg PO BID 08/03/22 [History Last Taken Unknown] magnesium oxide 400 mg PO DAILY 08/03/22 [History Last Taken Unknown] metaxalone 400 mg tablet 800 mg PO TID 08/03/22 [History Last Taken Unknown] pantoprazole 40 mg tablet,delayed release 40 mg PO DAILY 08/03/22 [History Last Taken Unknown] rosuvastatin 10 mg tablet 10 mg PO DAILY 08/03/22 [History Last Taken Unknown] hydroxyzine HCl 50 mg tablet 50 mg PO Q8 09/07/22 [History Last Taken Unknown] insulin lispro 100 unit/mL subcutaneous pen (Humalog KwikPen (U-100) Insulin) 45 unit subcut TIDCM 09/07/22 [History Last Taken Unknown] pregabalin 75 mg capsule (Lyrica) 75 mg PO QHS 09/07/22 [History Last Taken Unknown] linaclotide 290 mcg capsule (Linzess) 290 mcg PO DAILY #90 caps 03/19/23 [Rx Last Taken Unknown] bumetanide 1 mg tablet 1 mg PO BID 04/10/23 [History Last Taken Unknown] doxycycline hyclate 100 mg capsule 100 mg PO BID #28 caps 06/26/23 [Rx Last Taken Unknown] Allergy/AdvReac Type Severity Reaction Status Date / Time lactase [From Dairy Aid] Allergy Severe diarrhea Verified 09/07/22 14:33 codeine Allergy Intermediate mental Verified 09/07/22 14:33 status diphenhydramine Allergy Intermediate mental Verified 03/20/23 10:19 [From Benadryl Allergy] status quetiapine [From Seroquel] Allergy Intermediate about Verified 09/07/22 14:33 killed me - went into DKA morphine Allergy Other Verified 03/20/23 10:19 Family History Other Arthritis Cancer Depression Diabetes Kidney disease Surgical History History of esophagogastroduodenoscopy (EGD) History of hysterectomy Hx of colonoscopy Social History Smoking Status: Never smoker alcohol intake: current ROS ROS Narrative General: Denies fever/chills, feels generally unwell HENT: Slight headache, denies stuffy nose, denies sore throat EYES: Intermittently feels her vision gets blurry Resp: Denies cough, denies shortness of breath Cardiac: Denies chest pain GI: Denies abdominal pain, denies changes in bowel, nausea but feels it is slightly better : Denies changes in urination Extremity: Denies swelling MSK: Denies weakness Neuro: Denies any numbness/tingling Heme: Denies any bleeding or bruising Skin: Denies rashes Psychiatric: Feels generally unwell Vital Signs Vital Signs Vital Signs: 07/10/23 14:02 07/10/23 14:13 07/10/23 15:35 Temperature 97.6 F L Temperature Source Tympanic Pulse Rate 90 94 Respiratory Rate 16 19 H Respiratory Pattern Normal Blood Pressure 147/82 H 131/99 H Blood Pressure Mean 103 109 Pulse Ox 99 98 Oxygen Delivery Method Room Air Room Air 07/10/23 16:21 07/10/23 16:08 Temperature 97.9 F Temperature Source Oral Pulse Rate 86 83 Respiratory Rate 15 16 Respiratory Pattern Blood Pressure 128/76 H Blood Pressure Mean 93 Pulse Ox 97 99 Oxygen Delivery Method Room Air Room Air Weight Weight: 122.47 kg Body Mass Index (BMI) 38.7 Results Lab / Micro Data 07/10/23 14:15 07/10/23 14:15 Labs: Laboratory Results - last 24 hr 07/10/23 14:15: WBC 7.2, RBC 4.04 L, Hgb 11.2 L, Hct 38.2, MCV 94.6, MCH 27.7, MCHC 29.3 L, RDW Std Deviation 49.5 H, RDW Coeff of Ilene 14.4, Plt Count 227, MPV 12.0, Immature Gran % (Auto) 0.400, Neut % (Auto) 73.6 H, Lymph % (Auto) 22.8, Harvey % (Auto) 2.4, Eos % (Auto) 0.1, Baso % (Auto) 0.7, Absolute Neuts (auto) 5.3, Absolute Lymphs (auto) 1.64, Nucleated RBC % 0, Sodium 124 L, Potassium 5.6 H, Chloride 83 L, Carbon Dioxide 18.0 L, Anion Gap 23 H, BUN 65 H, Creatinine 2.63 H, Estim Creat Clear Calc 27.06, Est GFR (MDRD) Af Amer 25 L, Est GFR (MDRD) Non-Af 20 L, BUN/Creatinine Ratio 24.7 H, Glucose 895 H*, Calcium 9.1, Total Bilirubin 0.70, AST 24, ALT 31, Alkaline Phosphatase 201 H, Total Protein 7.7, Albumin 2.9 L, Globulin 4.8 H, Albumin/Globulin Ratio 0.6 L, Lipase 20, Urine Color Straw, Urine Clarity Clear, Urine pH 6.0, Ur Specific Norvell 1.010, Urine Protein Negative, Urine Glucose (UA) 1000 H, Urine Ketones 50 H, Urine Occult Blood Negative, Urine Nitrite Negative, Urine Bilirubin Negative, Urine Urobilinogen Normal, Ur Leukocyte Esterase Negative, Urine RBC 0 SEEN, Urine WBC 0 SEEN, Ur Squamous Epith Cells 0 SEEN, Urine Bacteria 0 SEEN, Urine Mucus 0 SEEN, Acetone Level MODERATE H 07/10/23 16:19: POC Glucose > 500 H* Assessment & Plan Assessment/Plan (1) Diabetic keto-acidosis: QUALIFIERS: Diabetes mellitus type: type 2 Diabetes mellitus complication detail: without coma Qualified Code(s): E11.10 - Type 2 diabetes mellitus with ketoacidosis without coma (2) Acute kidney injury: (3) Diabetic foot ulcer associated with type 2 diabetes mellitus: QUALIFIERS: Diabetic foot ulcer location: toe Laterality: right Non-pressure ulcer stage: limited to breakdown of skin Qualified Code(s): E11.621 - Type 2 diabetes mellitus with foot ulcer; L97.511 - Non-pressure chronic ulcer of other part of right foot limited to breakdown of skin PLAN: Plan #DKA in setting of chronic type 2 diabetes -Suspect large component of noncompliance -Serum glucose in ED 895, anion gap 23 -Urine ketones positive -Serum acetone moderate -Admit to intensive care unit -N.p.o. -Insulin drip started -Aggressive fluid hydration -Glucose checks and DKA protocol -BMP every 4H -Replace electrolytes per protocol -I's and O's -A1c in the a.m. -When serum glucose is <250 mg/dl, change IV fluids to D5%1/2NS at 150 ml/hr and continue insulin drip as per nomogram #MITCHELL on CKDIIIb -Suspect profound dehydration due to diuresis from her significant glucosuria -We will aggressively rehydrate and trend BMP #Obesity -BMI 30.3 kg/m? -Complicates treatment, prognosis, outcomes -Recommend weight loss and lifestyle changes -Hold Bumex #hyperkalemia, hyponatremia -Address significantly abnormal glucose/DKA and trend BMP #GERD -Continue PPI #R toe wound likely associated with her type 2 diabetes mellitus -Manage diabetes -Follows with wound clinic, consult wound care #DVT ppx: Heparin subcu Alycia Sheikh MD Time spent in the patient's overall evaluation,decision-making process, review of diagnostic data, adjustment of management, discussion with other providers, nursing nursing and ancillary staff involved in patient's care documentation, 76 Minutes Charges/Coding Visit Charges Inpatient E&M: 34227 Init Hosp L3
[2023-07-10 17:29] LABS: Bedside Glucose > 500 mg/dL (74-106)
[2023-07-10 18:16] LABS: AST(SGOT) 24 U/L (15-37); Alanine Aminotransfer ALT/SGPT 32 U/L (13-56); Alkaline Phosphatase 191 U/L (45-117); Anion Gap 23 (5-15); BUN 65 mg/dL (7-18); BUN/Creat Ratio 25.1 RATIO (10-20); Bilirubin, Direct 0.19 mg/dL (0.00-0.30); Calcium,Total 9.1 mg/dL (8.5-10.1); Chloride 85 mmol/L (98-107); Creatinine, Serum 2.59 mg/dL (0.55-1.02); EST Glomerular Filtration Rate 21 mL/min (>60); Est Glom Filt Rate - Afr Amer 25 mL/min (>60); Estimated Creatinine Clearance 27.48 ml/min; Globulin 4.7 g/dL (2.2-4.2); Glucose 916 mg/dL (74-106); Potassium 5.7 mmol/L (3.5-5.1); Protein, Total 7.7 g/dL (6.4-8.2); Sodium Level 125 mmol/L (136-145)
[2023-07-10] MEDS: 0.9% Normal Saline (1000mL) 1,000 ML 250 ML IV (18:19)
[2023-07-10 18:30] LABS: Bedside Glucose 478 mg/dL (74-106)
[2023-07-10] MEDS: Insulin Lispro 100 UNIT in 0.9% Normal Saline (100mL Bag) 99 ML 12 UNIT CONT INF (18:50)
[2023-07-10 18:52] LABS: Osmolality, Serum 338 mOsm/KG (275-295)
[2023-07-10 19:21] LABS: Hemoglobin A1c > 14.0 % (3.8-5.6)
[2023-07-10 20:49] LABS: Anion Gap 13 (5-15); BUN 64 mg/dL (7-18); BUN/Creat Ratio 23.4 RATIO (10-20); Calcium,Total 8.6 mg/dL (8.5-10.1); Chloride 100 mmol/L (98-107); Creatinine, Serum 2.73 mg/dL (0.55-1.02); EST Glomerular Filtration Rate 19 mL/min (>60); Est Glom Filt Rate - Afr Amer 24 mL/min (>60); Estimated Creatinine Clearance 26.07 ml/min; Glucose 285 mg/dL (74-106); Potassium 4.1 mmol/L (3.5-5.1); Sodium Level 138 mmol/L (136-145)
[2023-07-10] MEDS: Dext 5%-0.45% NS 1,000 ML 150 ML IV (21:50)
[2023-07-10] MEDS: Atorvastatin Calcium 20 MG Tablet PO (21:52)
[2023-07-10] MEDS: traZODone 100 MG Tablet 200 MG PO (23:27)
[2023-07-11] VITALS (11 sets, daily range): BP systolic 76–104; BP diastolic 42–58; PULSE 69–77; RESP 13–17; TEMP 36.7–36.8; O2SAT 93–100
[2023-07-11 00:44] LABS: Anion Gap 4 (5-15); BUN 59 mg/dL (7-18); BUN/Creat Ratio 26.6 RATIO (10-20); Calcium,Total 7.9 mg/dL (8.5-10.1); Chloride 102 mmol/L (98-107); Creatinine, Serum 2.22 mg/dL (0.55-1.02); EST Glomerular Filtration Rate 25 mL/min (>60); Est Glom Filt Rate - Afr Amer 30 mL/min (>60); Estimated Creatinine Clearance 32.06 ml/min; Glucose 148 mg/dL (74-106); Potassium 4.1 mmol/L (3.5-5.1); Sodium Level 137 mmol/L (136-145)
[2023-07-11] MEDS: 0.9% Normal Saline (1000mL) 1,000 ML 999 ML IV (01:41)
[2023-07-11 01:49] LABS: Absolute Lymphocyte Count 3.36 X10^3/uL (0.83-4.51); Absolute Neutrophil Count 2.1 X10^3/uL (2.0-7.7); Basophil# 0.03 X10^3/uL; Basophil% 0.5 % (0-1); Eosinophil# 0.06 X10^3/uL; Hematocrit 23.7 % (37-47); Hemoglobin 7.5 g/dL (12.0-15.0); Lymphocyte # 3.36 X10^3/ul (0.83-4.51); Lymphocyte % 54.8 % (19-41); Mean Corp Hgb Conc 31.6 g/dL (32-36); Mean Corpuscular Hgb 28.1 pg (27.0-32.0); Mean Corpuscular Volume 88.8 fL (81-99); Mean Platelet Vol. 11.4 fl (6.2-12.0); Monocyte# 0.53 X10^3/uL; Monocyte% 8.6 % (0-10); NRBC Flagged by Analyzer 0 % (0-5); Neutrophil # 2.14 X10^3/uL (2.7-7.7); Neutrophil % 34.9 % (47-70); Platelet Count 158 K/mm3 (150-450); RBC Distribution Width CV 13.7 % (11.6-14.6); RBC Distribution Width SD 44.8 fl (35.1-43.9); Red Blood Count 2.67 M/mm3 (4.2-5.4); White Blood Count 6.1 K/mm3 (4.4-11.0)
[2023-07-11 02:28] LABS: Bedside Glucose 294 mg/dL (74-106)
[2023-07-11 02:28] LABS: Bedside Glucose 178 mg/dL (74-106)
[2023-07-11 02:28] LABS: Bedside Glucose 106 mg/dL (74-106)
[2023-07-11 02:28] LABS: Bedside Glucose 152 mg/dL (74-106)
[2023-07-11 02:28] LABS: Bedside Glucose 129 mg/dL (74-106)
[2023-07-11 02:28] LABS: Bedside Glucose 184 mg/dL (74-106)
[2023-07-11 02:29] LABS: Bedside Glucose 128 mg/dL (74-106)
[2023-07-11 02:40] LABS: Absolute Lymphocyte Count 3.12 X10^3/uL (0.83-4.51); Absolute Neutrophil Count 1.9 X10^3/uL (2.0-7.7); Basophil# 0.04 X10^3/uL; Basophil% 0.7 % (0-1); Eosinophil# 0.08 X10^3/uL; Eosinophils% 1.4 % (0-5); Hematocrit 20.4 % (37-47); Hemoglobin 6.3 g/dL (12.0-15.0); Lymphocyte # 3.12 X10^3/ul (0.83-4.51); Lymphocyte % 56.2 % (19-41); Mean Corp Hgb Conc 30.9 g/dL (32-36); Mean Corpuscular Hgb 28.3 pg (27.0-32.0); Mean Corpuscular Volume 91.5 fL (81-99); Mean Platelet Vol. 11.3 fl (6.2-12.0); Monocyte# 0.44 X10^3/uL; Monocyte% 7.9 % (0-10); NRBC Flagged by Analyzer 0 % (0-5); Neutrophil # 1.86 X10^3/uL (2.7-7.7); Neutrophil % 33.6 % (47-70); Platelet Count 139 K/mm3 (150-450); RBC Distribution Width CV 13.8 % (11.6-14.6); RBC Distribution Width SD 46.2 fl (35.1-43.9); Red Blood Count 2.23 M/mm3 (4.2-5.4); White Blood Count 5.6 K/mm3 (4.4-11.0)
[2023-07-11] MEDS: 0.9% Normal Saline (1000mL) 600 ML 999 ML IV (03:00)
[2023-07-11 03:06] LABS: Lactic Acid 1.5 mmol/L (0.4-1.9)
[2023-07-11 03:15] LABS: ALB/GLOB Ratio 0.7 RATIO (0.9-2.4); AST(SGOT) 9 U/L (15-37); Alanine Aminotransfer ALT/SGPT 14 U/L (13-56); Albumin, Serum 1.5 g/dL (3.2-5.0); Alkaline Phosphatase 93 U/L (45-117); Anion Gap 4 (5-15); BUN 42 mg/dL (7-18); BUN/Creat Ratio 28.4 RATIO (10-20); Calcium,Total 5.5 mg/dL (8.5-10.1); Chloride 116 mmol/L (98-107); Creatinine, Serum 1.48 mg/dL (0.55-1.02); EST Glomerular Filtration Rate 39 mL/min (>60); Est Glom Filt Rate - Afr Amer 48 mL/min (>60); Estimated Creatinine Clearance 48.08 ml/min; Globulin 2.3 g/dL (2.2-4.2); Glucose 82 mg/dL (74-106); Potassium 2.9 mmol/L (3.5-5.1); Protein, Total 3.8 g/dL (6.4-8.2); Sodium Level 144 mmol/L (136-145); Thyroid Stim Hormone (TSH) 0.19 uIU/mL (0.358-3.74)
[2023-07-11 03:56] LABS: Bedside Glucose 106 mg/dL (74-106)
[2023-07-11] MEDS: Dext 5%-0.45% NS 1,000 ML 75 ML IV (04:30)
[2023-07-11] MEDS: Potassium Chloride Oral Tablet 20 MEQ 40 MEQ PO (04:30)
[2023-07-11] MEDS: Potassium Chloride 10mEq/100mL 10 MEQ/100 ML IV.SOLN. 100 MEQ IV BOLUS ×4 (04:31→08:10)
[2023-07-11] MEDS: Calcium Gluconate IV 2 GM in 0.9% Normal Saline (100mL Bag) 100 ML IV (04:34)
[2023-07-11] MEDS: Acetaminophen 325 MG Tablet 650 MG PO (04:41)
[2023-07-11] MEDS: Insulin Glargine-YFGN 100 UNIT/ML Pen 30 UNIT SC (06:30)
--- NOTE | 2023-07-11 07:08 | PN.HOSP_ITS ---
Reason for Visit Reason for Visit: Diagnoses Type 2 diabetes mellitus with ketoacidosis without coma (07/10/23) Type 2 diabetes mellitus with foot ulcer (07/10/23) Non-pressure chronic ulcer of other part of right foot limited to breakdown of skin (07/10/23) Acute kidney failure, unspecified (07/10/23) Subjective Subjective Feel tired. Had some issues, but doesn't want to go into it. Has known that her blood sugar was high. Insists that she was taking her insulin Objective Data Objective Data Vital Signs: Vital Signs Temp Pulse Resp BP Pulse Ox O2 Del Method O2 Flow Rate 36.7 C 73 13 104/58 L 100 Room Air 2 07/11/23 03:23 07/11/23 07:00 07/11/23 07:00 07/11/23 07:00 07/11/23 07:00 07/11/23 07:00 07/11/23 02:00 Oxygen Flow Rate (L/min) 2 Oxygen Delivery Method Room Air Weight: 121.018 kg Body Mass Index (BMI) 38.2 Intake & Output: Intake and Output for Last 24 Hours 07/09/23 07/10/23 07/11/23 23:59 23:59 23:59 Intake Total 3969.83 / 3971.83 2944.13 / 2944.13 Balance 3969.83 / 3971.83 2944.13 / 2944.13 Lab / Micro Data 07/11/23 07:10 07/11/23 07:10 Labs: Laboratory Results - last 24 hr 07/10/23 14:15: WBC 7.2, RBC 4.04 L, Hgb 11.2 L, Hct 38.2, MCV 94.6, MCH 27.7, MCHC 29.3 L, RDW Std Deviation 49.5 H, RDW Coeff of Ilene 14.4, Plt Count 227, MPV 12.0, Immature Gran % (Auto) 0.400, Neut % (Auto) 73.6 H, Lymph % (Auto) 22.8, Bent % (Auto) 2.4, Eos % (Auto) 0.1, Baso % (Auto) 0.7, Absolute Neuts (auto) 5.3, Absolute Lymphs (auto) 1.64, Nucleated RBC % 0, Sodium 124 L, Potassium 5.6 H, Chloride 83 L, Carbon Dioxide 18.0 L, Anion Gap 23 H, BUN 65 H, Creatinine 2.63 H, Estim Creat Clear Calc 27.06, Est GFR (MDRD) Af Amer 25 L, Est GFR (MDRD) Non-Af 20 L, BUN/Creatinine Ratio 24.7 H, Glucose 895 H*, Hemoglobin A1c > 14.0 H, Calcium 9.1, Total Bilirubin 0.70, AST 24, ALT 31, Alkaline Phosphatase 201 H, Total Protein 7.7, Albumin 2.9 L, Globulin 4.8 H, Albumin/Globulin Ratio 0.6 L, Lipase 20, Urine Color Straw, Urine Clarity Clear, Urine pH 6.0, Ur Specific [place] 1.010, Urine Protein Negative, Urine Glucose (UA) 1000 H, Urine Ketones 50 H, Urine Occult Blood Negative, Urine Nitrite Negative, Urine Bilirubin Negative, Urine Urobilinogen Normal, Ur Leukocyte Esterase Negative, Urine RBC 0 SEEN, Urine WBC 0 SEEN, Ur Squamous Epith Cells 0 SEEN, Urine Bacteria 0 SEEN, Urine Mucus 0 SEEN, Acetone Level MODERATE H 07/10/23 15:30: Sodium 125 L, Potassium 5.7 H, Chloride 85 L, Carbon Dioxide 17.0 L, Anion Gap 23 H, BUN 65 H, Creatinine 2.59 H, Estim Creat Clear Calc 27.48, Est GFR (MDRD) Af Amer 25 L, Est GFR (MDRD) Non-Af 21 L, BUN/Creatinine Ratio 25.1 H, Glucose 916 H*, Calcium 9.1, Magnesium 3.0 H, Total Bilirubin 0.70, Direct Bilirubin 0.19, AST 24, ALT 32, Alkaline Phosphatase 191 H, Total Protein 7.7, Albumin 3.0 L, Globulin 4.7 H 07/10/23 16:19: POC Glucose > 500 H* 07/10/23 17:11: POC Glucose > 500 H* 07/10/23 18:10: Serum Osmolality 338 H, POC Glucose 478 H* 07/10/23 19:54: POC Glucose 294 H 07/10/23 20:15: Sodium 138, Potassium 4.1, Chloride 100, Carbon Dioxide 25.0, Anion Gap 13, BUN 64 H, Creatinine 2.73 H, Estim Creat Clear Calc 26.07, Est GFR (MDRD) Af Amer 24 L, Est GFR (MDRD) Non-Af 19 L, BUN/Creatinine Ratio 23.4 H, Glucose 285 H, Calcium 8.6 07/10/23 21:08: POC Glucose 184 H 07/10/23 22:01: POC Glucose 178 H 07/10/23 23:31: POC Glucose 152 H 07/11/23 00:21: POC Glucose 129 H 07/11/23 00:30: Sodium 137, Potassium 4.1, Chloride 102, Carbon Dioxide 31.0, Anion Gap 4 L, BUN 59 H, Creatinine 2.22 H, Estim Creat Clear Calc 32.06, Est GFR (MDRD) Af Amer 30 L, Est GFR (MDRD) Non-Af 25 L, BUN/Creatinine Ratio 26.6 H , Glucose 148 H, Calcium 7.9 L 07/11/23 01:09: POC Glucose 128 H 07/11/23 01:45: WBC 6.1, RBC 2.67 L, Hgb 7.5 L, Hct 23.7 L, MCV 88.8 D, MCH 28.1, MCHC 31.6 L D, RDW Std Deviation 44.8 H, RDW Coeff of Ilene 13.7, Plt Count 158, MPV 11.4, Immature Gran % (Auto) 0.200, Neut % (Auto) 34.9 L, Lymph % (Auto) 54.8 H, Bent % (Auto) 8.6, Eos % (Auto) 1.0, Baso % (Auto) 0.5, Absolute Neuts (auto) 2.1, Absolute Lymphs (auto) 3.36, Nucleated RBC % 0 07/11/23 02:08: POC Glucose 106 07/11/23 02:35: WBC 5.6, RBC 2.23 L, Hgb 6.3 L, Hct 20.4 L, MCV 91.5, MCH 28.3, MCHC 30.9 L, RDW Std Deviation 46.2 H, RDW Coeff of Ilene 13.8, Plt Count 139 L, MPV 11.3, Immature Gran % (Auto) 0.200, Neut % (Auto) 33.6 L, Lymph % (Auto) 56.2 H, Bent % (Auto) 7.9, Eos % (Auto) 1.4, Baso % (Auto) 0.7, Absolute Neuts (auto) 1.9 L, Absolute Lymphs (auto) 3.12, Nucleated RBC % 0, Sodium 144, [place] 2.9 L, Chloride 116 H, Carbon Dioxide 24.0, Anion Gap 4 L, BUN 42 H, Creatinine 1.48 H, Estim Creat Clear Calc 48.08, Est GFR (MDRD) Af Amer 48 L, Est GFR (MDRD) Non-Af 39 L, BUN/Creatinine Ratio 28.4 H, Glucose 82, Lactic Acid 1.5, Calcium 5.5 L*, Total Bilirubin 0.30, AST 9 L, ALT 14, Alkaline Phosphatase 93, Total Protein 3.8 L, Albumin 1.5 L, Globulin 2.3, Albumin/Globulin Ratio 0.7 L, TSH 0.19 L 07/11/23 03:38: POC Glucose 106 Physical Exam Const alert and no apparent distress Constitutional Narrative: listless. flat affect. HEENT head/scalp atraumatic and moist oral mucous membranes Neuro Sensorium / Orientation: awake and alert Assessment & Plan Assessment/Plan (1) Diabetic keto-acidosis: QUALIFIERS: Diabetes mellitus complication detail: without coma Diabetes mellitus type: type 2 Qualified Code(s): E11.10 - Type 2 diabetes mellitus with ketoacidosis without coma PLAN: DKA in setting of chronic type 2 diabetes Data: * Serum glucose in ED 895, anion gap 23 * Urine ketones positive * Serum acetone moderate * a1c pending Was on insulin gtt. Gap now closed. Now on Glargline 60 units/d, humalog 10/TID (2) Acute kidney injury: PLAN: Likely prerenal Improved w IVF Continue to monitor Hold bumatanide (3) Diabetic foot ulcer associated with type 2 diabetes mellitus: QUALIFIERS: Diabetic foot ulcer location: toe Laterality: right Non-pressure ulcer stage: limited to breakdown of skin Qualified Code(s): E11.621 - Type 2 diabetes mellitus with foot ulcer; L97.511 - Non-pressure chronic ulcer of other part of right foot limited to breakdown of skin PLAN: R toe wound likely associated with her type 2 diabetes mellitus Manage diabetes Follows with wound clinic, consult wound care (4) Hypokalemia: PLAN: Initially hyperkalemic (likely due to acidosis) Replace (5) Hyponatremia: PLAN: Resolved Pseudohyponatremia from hyperglycemia (6) Anemia: PLAN: Hg dropped from 11.2 to 6.3 Some component is hemoconcentration. Will recheck hemoglobin in case it is dilutional Hold off any transfusion at this time unless repeat Hg is verified to be low. (7) Hypocalcemia: PLAN: Unclear if accurate. Received calcium gluconate Recheck PLAN: Plan Chronic conditions: * Obesity: -BMI 30.3 kg/m?-Complicates treatment, prognosis, outcomes-Recommend weight loss and lifestyle changes * GERD-Continue PPI DVT ppx: Heparin subcu Charges/Coding Visit Charges Inpatient E&M: 92059 Subs Hosp L2
[2023-07-11 07:58] LABS: Absolute Lymphocyte Count 2.88 X10^3/uL (0.83-4.51); Absolute Neutrophil Count 2.9 X10^3/uL (2.0-7.7); Basophil# 0.04 X10^3/uL; Basophil% 0.6 % (0-1); Eosinophil# 0.11 X10^3/uL; Eosinophils% 1.7 % (0-5); Hematocrit 28.6 % (37-47); Hemoglobin 9.1 g/dL (12.0-15.0); Lymphocyte # 2.88 X10^3/ul (0.83-4.51); Lymphocyte % 45.8 % (19-41); Mean Corp Hgb Conc 31.8 g/dL (32-36); Mean Corpuscular Hgb 28.5 pg (27.0-32.0); Mean Corpuscular Volume 89.7 fL (81-99); Mean Platelet Vol. 11.5 fl (6.2-12.0); Monocyte# 0.35 X10^3/uL; Monocyte% 5.6 % (0-10); NRBC Flagged by Analyzer 0 % (0-5); Neutrophil % 46.1 % (47-70); Platelet Count 169 K/mm3 (150-450); RBC Distribution Width CV 13.8 % (11.6-14.6); RBC Distribution Width SD 45.3 fl (35.1-43.9); Red Blood Count 3.19 M/mm3 (4.2-5.4); White Blood Count 6.3 K/mm3 (4.4-11.0)
[2023-07-11] MEDS: Aspirin E.C. 81 MG Tablet PO (08:11)
[2023-07-11] MEDS: Pantoprazole Sodium 40 MG Tablet PO (08:11)
[2023-07-11 08:19] LABS: Anion Gap 6 (5-15); BUN 53 mg/dL (7-18); BUN/Creat Ratio 26.4 RATIO (10-20); Chloride 101 mmol/L (98-107); Creatinine, Serum 2.01 mg/dL (0.55-1.02); EST Glomerular Filtration Rate 28 mL/min (>60); Est Glom Filt Rate - Afr Amer 33 mL/min (>60); Glucose 353 mg/dL (74-106); Sodium Level 133 mmol/L (136-145)
--- NOTE | 2023-07-11 09:17 | WOUNDNOTE ---
wound photo: right great toe
[2023-07-11] MEDS: Insulin Lispro 100 UNIT/ML INSULN.PEN SC ×2 (09:25→11:37)
[2023-07-11] MEDS: Insulin Lispro 100 UNIT/ML INSULN.PEN 10 UNIT SC ×2 (09:26→11:45)
[2023-07-11 09:29] LABS: Bedside Glucose 195 mg/dL (74-106)
[2023-07-11] MEDS: hydrOXYzine PAM 25 MG Capsule 50 MG PO (09:52)
[2023-07-11 11:56] LABS: Bedside Glucose 204 mg/dL (74-106)
[2023-07-11 12:42] LABS: Anion Gap 8 (5-15); BUN 50 mg/dL (7-18); BUN/Creat Ratio 23.7 RATIO (10-20); Calcium,Total 8.1 mg/dL (8.5-10.1); Chloride 104 mmol/L (98-107); Creatinine, Serum 2.11 mg/dL (0.55-1.02); EST Glomerular Filtration Rate 26 mL/min (>60); Est Glom Filt Rate - Afr Amer 32 mL/min (>60); Estimated Creatinine Clearance 33.73 ml/min; Glucose 209 mg/dL (74-106); Potassium 5.3 mmol/L (3.5-5.1); Sodium Level 135 mmol/L (136-145)
--- NOTE | 2023-07-11 13:51 | CHAPLAIN ---
Type of Pastoral Visit _x__ Initial Visit ___ Follow-up Visit ___ On-call Visit ___ General Patient Visit ___ Spiritual Assessment ___ Family Conference ___ Bereavement ___ Rapid Response ___ Code Blue ___ Other (describe below) Pastoral Care Referral From _x__ Patient ___ Family ___ Nurse ___ Physician ___ Bale Coverer ___ Burner Machine Operator ___ Other (describe below) Sacrament/Intervention _x__ Active listening ___ Anointing ___ Zoroastrianism ___ Bereavement ___ Communion ___ Dana exploration ___ ___ Life review _x__ Prayer ___ Reconciliation ___ Sacrament of Sick _x__ Supportive presence ___ Wedding ___ Other (describe below) Pastoral Comments patient is tearful as questions are asked and how she can be supported today; pt states that there is too much going on and I don't want to even think about those things right now; offer of support and time to process if she so desires; pt welcomes prayer and again is tearful after prayers are spoken; pt has limited emotional support from family right now which is a concern for her
--- NOTE | 2023-07-11 15:16 | DS.PCM_ITS ---
Providers Date of Admission: 07/10/23 Primary Care Physician: Dr. Migue Silveira DO Consultations 07/10/23 17:48 Consult: Onc/Wound/feather washer Routine Comment: Reason for Consult:: f/w wound clinic for R toe abscess Reason For Visit: DKA, MITCHELL Diagnosis Discharge Diagnosis (1) Diabetic keto-acidosis: Status: Acute Code(s): E11.10 - Type 2 diabetes mellitus with ketoacidosis without coma Qualifiers: Diabetes mellitus type: type 2 Diabetes mellitus complication detail: without coma Qualified Code(s): E11.10 - Type 2 diabetes mellitus with ketoacidosis without coma Plan: DKA in setting of chronic type 2 diabetes Data: * Serum glucose in ED 895, anion gap 23 * Urine ketones positive * Serum acetone moderate * a1c pending Was on insulin gtt. Gap now closed. Now on Glargline 60 units/d, humalog 10/TID (2) Acute kidney injury: Status: Acute Code(s): N17.9 - Acute kidney failure, unspecified Plan: Likely prerenal Improved w IVF Continue to monitor Hold bumatanide (3) Diabetic foot ulcer associated with type 2 diabetes mellitus: Status: Acute Code(s): E11.621 - Type 2 diabetes mellitus with foot ulcer; L97.509 - Non-pressure chronic ulcer of other part of unspecified foot with unspecified severity Qualifiers: Diabetic foot ulcer location: toe Laterality: right Non-pressure ulcer stage: limited to breakdown of skin Qualified Code(s): E11.621 - Type 2 diabetes mellitus with foot ulcer; L97.511 - Non-pressure chronic ulcer of other part of right foot limited to breakdown of skin Plan: R toe wound likely associated with her type 2 diabetes mellitus Manage diabetes Follows with wound clinic, consult wound care (4) Hypokalemia: Status: Acute Code(s): E87.6 - Hypokalemia Plan: Initially hyperkalemic (likely due to acidosis) Replace (5) Hyponatremia: Status: Acute Code(s): E87.1 - Hypo-osmolality and hyponatremia Plan: Resolved Pseudohyponatremia from hyperglycemia (6) Anemia: Status: Acute Code(s): D64.9 - Anemia, unspecified Plan: Hg dropped from 11.2 to 6.3 Some component is hemoconcentration. Will recheck hemoglobin in case it is dilutional Hold off any transfusion at this time unless repeat Hg is verified to be low. (7) Hypocalcemia: Status: Acute Code(s): E83.51 - Hypocalcemia Plan: Unclear if accurate. Received calcium gluconate Recheck Plan Chronic conditions: * Obesity: -BMI 30.3 kg/m?-Complicates treatment, prognosis, outcomes-Recommend weight loss and lifestyle changes * GERD-Continue PPI DVT ppx: Heparin subcu Medications at Discharge Home Medications aspirin 81 mg tablet,delayed release 81 mg PO DAILY heart health 07/11/20 metoprolol tartrate 25 mg tablet 25 mg PO DAILY blood pressure 07/11/20 multivitamin (Daily Multi-Vitamin tablet) 1 tab PO DAILY vitamin 07/11/20 insulin glargine 100 unit/mL (3 mL) subcutaneous pen (Lantus Solostar U-100 Insulin) 60 unit subcut QHS DM 03/12/22 trazodone 100 mg tablet 200 mg PO QHS sleep 03/12/22 ondansetron 4 mg disintegrating tablet 4 mg PO Q8H PRN nausea and vomiting #90 tabs 07/24/22 acetaminophen 500 mg tablet 1,000 mg PO BID pain 08/03/22 docusate sodium 100 mg tablet 100 mg PO BID constipation 08/03/22 magnesium oxide 400 mg PO DAILY suppliment 08/03/22 pantoprazole 40 mg tablet,delayed release 40 mg PO DAILY gerd 08/03/22 rosuvastatin 10 mg tablet 10 mg PO DAILY cholesterol 08/03/22 hydroxyzine HCl 50 mg tablet 50 mg PO Q8 PRN anxiety 09/07/22 pregabalin 75 mg capsule (Lyrica) 150 mg PO Q8H pain 09/07/22 linaclotide 290 mcg capsule (Linzess) 290 mcg PO DAILY #90 caps 03/19/23 HumuLIN R U-500 (Conc) Kwikpen diabetes 07/10/23 ammonium lactate 12 % lotion 1 applic topical BID PRN PRN itchy skin 07/10/23 nitroglycerin 0.4 mg sublingual tablet 0.4 mg sublingual Q5M angina 07/10/23 nystatin 100,000 unit/gram topical powder 1 applic topical BID PRN yeast 07/10/23 rimegepant 75 mg disintegrating tablet 75 mg PO QODAY migraine 09/13/23 desvenlafaxine succinate 100 mg tablet,extended release 24 hr 100 mg PO Q24H dep ression 07/11/23 metaxalone 400 mg tablet 400 mg PO TID #1 TAB 07/11/23 Hospital Course Operations None Procedures None Summary of Care Provided Minutes Spent on Discharge: 35 Hospital Course: Presents with diabetic ketoacidosis. Patient's glucose was a 95 with positive anion gap of 23 and a bicarb of 18. Patient started on insulin drip as well as IV fluids. Patient is gap normalized quite quickly. Patient is on U-500 with meals as well as on insulin glargine 60 at night. Patient states that she is taking her medications better he A1c is at greater than 14. It is concerning that the patient is actually not taking her insulin as instructed or at all. Patient is to have an insulin pump eventually placed and is to follow-up with her securities supervisor to have that. Hopefully with that being placed that she can have her blood sugars better controlled. Patient also did have acute kidney injury so her Bumex will be held. Weight / BMI Weight Weight: 121.018 kg Body Mass Index (BMI) 38.2 ABG / Lab / Microbiology Data 07/11/23 07:10 07/11/23 11:35 Laboratory: Laboratory Results - last 24 hr 07/10/23 14:15: Hemoglobin A1c > 14.0 H 07/10/23 15:30: Sodium 125 L, Potassium 5.7 H, Chloride 85 L, Carbon Dioxide 17.0 L, Anion Gap 23 H, BUN 65 H, Creatinine 2.59 H, Estim Creat Clear Calc 27.48, Est GFR (MDRD) Af Amer 25 L, Est GFR (MDRD) Non-Af 21 L, BUN/Creatinine Ratio 25.1 H, Glucose 916 H*, Calcium 9.1, Magnesium 3.0 H, Total Bilirubin 0.70, Direct Bilirubin 0.19, AST 24, ALT 32, Alkaline Phosphatase 191 H, Total Protein 7.7, Albumin 3.0 L, Globulin 4.7 H 07/10/23 16:19: POC Glucose > 500 H* 07/10/23 17:11: POC Glucose > 500 H* 07/10/23 18:10: Serum Osmolality 338 H, POC Glucose 478 H* 07/10/23 19:54: POC Glucose 294 H 07/10/23 20:15: Sodium 138, Potassium 4.1, Chloride 100, Carbon Dioxide 25.0, Anion Gap 13, BUN 64 H, Creatinine 2.73 H, Estim Creat Clear Calc 26.07, Est GFR (MDRD) Af Amer 24 L, Est GFR (MDRD) Non-Af 19 L, BUN/Creatinine Ratio 23.4 H, Glucose 285 H, Calcium 8.6 07/10/23 21:08: POC Glucose 184 H 07/10/23 22:01: POC Glucose 178 H 07/10/23 23:31: POC Glucose 152 H 07/11/23 00:21: POC Glucose 129 H 07/11/23 00:30: Sodium 137, Potassium 4.1, Chloride 102, Carbon Dioxide 31.0, Anion Gap 4 L, BUN 59 H, Creatinine 2.22 H, Estim Creat Clear Calc 32.06, Est GFR (MDRD) Af Amer 30 L, Est GFR (MDRD) Non-Af 25 L, BUN/Creatinine Ratio 26.6 H , Glucose 148 H, Calcium 7.9 L 07/11/23 01:09: POC Glucose 128 H 07/11/23 01:45: WBC 6.1, RBC 2.67 L, Hgb 7.5 L, Hct 23.7 L, MCV 88.8 D, MCH 28.1, MCHC 31.6 L D, RDW Std Deviation 44.8 H, RDW Coeff of Ilene 13.7, Plt Count 158, MPV 11.4, Immature Gran % (Auto) 0.200, Neut % (Auto) 34.9 L, Lymph % (Auto) 54.8 H, [place] % (Auto) 8.6, Eos % (Auto) 1.0, Baso % (Auto) 0.5, Absolute Neuts (auto) 2.1, Absolute Lymphs (auto) 3.36, Nucleated RBC % 0 07/11/23 02:08: POC Glucose 106 07/11/23 02:35: WBC 5.6, RBC 2.23 L, Hgb 6.3 L, Hct 20.4 L, MCV 91.5, MCH 28.3, MCHC 30.9 L, RDW Std Deviation 46.2 H, RDW Coeff of Ilene 13.8, Plt Count 139 L, MPV 11.3, Immature Gran % (Auto) 0.200, Neut % (Auto) 33.6 L, Lymph % (Auto) 56.2 H, [place] % (Auto) 7.9, Eos % (Auto) 1.4, Baso % (Auto) 0.7, Absolute Neuts (auto) 1.9 L, Absolute Lymphs (auto) 3.12, Nucleated RBC % 0, Sodium 144, Potassium 2.9 L, Chloride 116 H, Carbon Dioxide 24.0, Anion Gap 4 L, BUN 42 H, Creatinine 1.48 H, Estim Creat Clear Calc 48.08, Est GFR (MDRD) Af Amer 48 L, Est GFR (MDRD) Non-Af 39 L, BUN/Creatinine Ratio 28.4 H, Glucose 82, Lactic Acid 1.5, Calcium 5.5 L*, Total Bilirubin 0.30, AST 9 L, ALT 14, Alkaline Phosphatase 93, Total Protein 3.8 L, Albumin 1.5 L, Globulin 2.3, Albumin/Globulin Ratio 0.7 L, TSH 0.19 L 07/11/23 03:38: POC Glucose 106 07/11/23 05:40: POC Glucose 195 H 07/11/23 07:10: WBC 6.3, RBC 3.19 L, Hgb 9.1 L, Hct 28.6 L, MCV 89.7, MCH 28.5, MCHC 31.8 L, RDW Std Deviation 45.3 H, RDW Coeff of Ilene 13.8, Plt Count 169, MPV 11.5, Immature Gran % (Auto) 0.200, Neut % (Auto) 46.1 L, Lymph % (Auto) 45.8 H, [place] % (Auto) 5.6, Eos % (Auto) 1.7, Baso % (Auto) 0.6, Absolute Neuts (auto) 2.9, Absolute Lymphs (auto) 2.88, Nucleated RBC % 0, Sodium 133 L, Potassium 6.0 H*, Chloride 101, Carbon Dioxide 26.0, Anion Gap 6, BUN 53 H, Creatinine 2.01 H, Estim Creat Clear Calc 35.40, Est GFR (MDRD) Af Amer 33 L, Est GFR (MDRD) Non-Af 28 L, BUN/Creatinine Ratio 26.4 H, Glucose 353 H, Calcium 8.0 L 07/11/23 11:35: Sodium 135 L, Potassium 5.3 H, Chloride 104, Carbon Dioxide 23.0, Anion Gap 8, BUN 50 H, Creatinine 2.11 H, Estim Creat Clear Calc 33.73, Est GFR (MDRD) Af Amer 32 L, Est GFR (MDRD) Non-Af 26 L, BUN/Creatinine Ratio 23.7 H, Glucose 209 H, Calcium 8.1 L, POC Glucose 204 H D/C Instructions Discharge Diet: 2000 Calorie Control Diet Call your doctor if you observe: - (uncontrolled glucose, greater than 300 for more than 1 reading. ) Meaningful Use Info Meaningful Use Diagnoses (Choose all that apply): None applicable Discharge Plan Admission Admit Date/Time: 07/10/23 16:58 Primary Reason for Your Visit: Diabetic ketoacidosis. Attending Provider: Kaz Willingham Primary Care Provider: Migue Silveira Consulting Providers: Alycia Sheikh Instructions Additional Instructions / Restrictions: Follow up with endocrinology. Your a1c is greater than 14. Your blood sugars are poorly controlled. Take your insulin as previously instructed. If you have any issues, please contract your primary care physician or securities supervisor. Discharge Orders/Prescriptions Prescriptions: New metaxalone 400 mg tablet 400 mg PO TID Qty: 1 0RF Continued aspirin 81 mg tablet,delayed release (DR/EC) 81 mg PO DAILY metoprolol tartrate 25 mg tablet 25 mg PO DAILY multivitamin [Daily Multi-Vitamin] Tablet 1 tab PO DAILY Linzess 290 mcg capsule 290 mcg PO DAILY Qty: 90 3RF trazodone 100 mg tablet 200 mg PO QHS Patient Comments: TAKE 2 TABLETS BY MOUTH ONCE DAILY AT BEDTIME AFTER A MEAL, DIRECTED, NEEDED FOR SLEEP/INSOMNIA insulin glargine [Lantus Solostar U-100 Insulin] 100 unit/mL (3 mL) insulin pen 60 unit SUBCUT QHS Hold Instructions: Order Changed acetaminophen 500 mg Tablet 1,000 mg PO BID pantoprazole 40 mg Tablet,Delayed Release (Dr/Ec) 40 mg PO DAILY docusate sodium 100 mg Tablet 100 mg PO BID rosuvastatin 10 mg Tablet 10 mg PO DAILY pregabalin [Lyrica] 75 mg Capsule 150 mg PO Q8H hydroxyzine HCl 50 mg Tablet 50 mg PO Q8 PRN (Reason: anxiety) nitroglycerin 0.4 mg tablet, sublingual 0.4 mg sublingual Q5M Rx Instructions: do not exceed 3 doses per episode HumuLIN R U-500 (Conc) Kwikpen Rx Instructions: 60units at hs, 40units at 1200, 50units w/supper nystatin 100,000 unit/gram powder 1 applic topical BID PRN (Reason: yeast) Patient Comments: to groin bid ammonium lactate 12 % lotion 1 applic TOPICAL BID PRN PRN (Reason: itchy skin) Rx Instructions: apply to legs and arms bid rimegepant 75 mg tablet,disintegrating 75 mg PO QODAY desvenlafaxine succinate 100 mg tablet extended release 24 hr 100 mg PO Q24H ondansetron 4 mg tablet,disintegrating 4 mg PO Q8H PRN (Reason: nausea and vomiting) Qty: 90 1RF Discontinued metaxalone 400 mg Tablet 400 mg PO TID insulin lispro [Humalog KwikPen Insulin] 100 unit/mL Insulin Pen 45 unit SUBCUT TIDCM Hold Instructions: insulin switched bumetanide [Bumex] 1 mg Tablet 1 mg PO BID Rx Instructions: 2 tablets twice a day mon,wed,fri and 3 tablets once a day on rest of the days potassium chloride 20 mEq tablet,ER particles/crystals 20 meq PO BID No Action magnesium oxide 400 mg magnesium Tablet 400 mg PO DAILY Referrals / Follow Up: Chandrakant Hernandez DPM [Med Staff - Active Staff] - Within 1 Week Migue Silveira DO [Primary Care Provider] - Within 2 Weeks Disposition Disposition (needs filled in before D/C Order can be placed): Home, Self Care Charges/Coding Visit Charges Inpatient E&M: 99788 Disch Hosp >30min
--- NOTE | 2023-07-11 16:30 | CASEMGMT ---
Addendum entered by Neela Salazar 07/11/23 17:19: Patient does not report any difficulty with ambulation of stairs at home. Neela DESHPANDE, RN, CM Original Note: RN CM bezel cutter CM Face to Face with patient for initial transition planning/care coordination assessment. RN CM introduced self and role at [facility]. Patient sitting in wheelchair to be taken down for discharge, alert and oriented. Patient willing to participate in assessment and is able to answer all questions appropriately.? Care providers, pharmacy, and demographics verified. Patient wishes to discharge home, denies need for home health at this time.? Patient states she has no further needs or concerns at this time. CM to follow for discharge planning needs that may arise. PCP:Jordana Specialists: Aden (Incident Response Consultant), Griffin ([place] Maker Hand), David (Leaf Stripper), Canelo (Neurologist), Hugo Emery (Psychologist), and Counselor (patient unsure of name) Preferred Pharmacy:[facility] Insurance:[facility] Prescription Benefit:?Yes Living Will/HPOA:No/No; Patient informed she can make an appointment with the hospital after discharge to create her LW and HCPOA if she chooses. LNOK:Friend, Linda Read Living Arrangements:Lives in 1 story apartment with her (though states her has not been home in two weeks), [employer], 5 steps down w/railing to enter. Patient states she is independent in all ADLs/IADLs prior to this admission. Transportation:Self/friend Linda DME: Continuous glucose monitor. Patient states she could use a pulse ox and a BP cuff. Patient encouraged to check for these possibly at [facility]. Patient states she has all of her insulin and continuos glucose monitoring supplies at home. Denies any additional DME needs. HHC:Denies previous SNF and HHC. Disposition Plan:Patient to discharge home with family/friend support and follow-up plans in place. Patient states she has an appointment with her new technical solutions consultant on 07/18/23 for a pump. Patient encouraged to keep this appointment. Neela DESHPANDE, RN, CM
== END 2023-07-11 16:50 | disposition home or self-care (01) | DRG 638 ==
LOC: ED 14:54 → ICU 16:41
PROVIDERS: Hospitalist; Admitting Provider Internal Medicine; Emergency Provider Emergency Medicine; PCP Student in an Organized Health Care Education/Training Program
DX: E11.10 Type 2 diabetes mellitus with ketoacidosis without coma (principal); N17.9 Acute kidney failure, unspecified; E87.1 Hypo-osmolality and hyponatremia; L97.511 Non-pressure chronic ulcer of other part of right foot limited to breakdown of skin; D63.1 Anemia in chronic kidney disease; E83.51 Hypocalcemia; E11.22 Type 2 diabetes mellitus with diabetic chronic kidney disease; N18.32 Chronic kidney disease, stage 3b; E11.621 Type 2 diabetes mellitus with foot ulcer; Z79.4 Long term (current) use of insulin; E87.5 Hyperkalemia; K21.9 Gastro-esophageal reflux disease without esophagitis; E87.6 Hypokalemia; E66.9 Obesity, unspecified; Z68.30 Body mass index [BMI] 30.0-30.9, adult; Z79.82 Long term (current) use of aspirin; Z79.899 Other long term (current) drug therapy; Z86.16 Personal history of COVID-19
CPT/HCPCS: 80048; 80053; 80076; 81001; 82009; 82962; 83036; 83605; 83690; 83735; 83930; 84443; 85025; 94762; 97162; 97802; 99285; J7030; A4216; J0612; J2405; J7799

== ENCOUNTER 2023-07-24 15:45 | Outpatient (RCR) | payer OTHER, SELFPAY ==
[2023-06-28 00:24] VITALS: BP 117/70; PULSE 74; RESP 18; TEMP 35.6; BMI 38.7
--- NOTE | 2023-07-03 12:58 | ART_ITS ---
Reason For Study: PVD Procedure A bilateral lower extremity continuous wave Doppler with analog waveform analysis,segmental pressures,and ankle brachial indexes without exercise. Left Segmental Pressures Left brachial= 81mmHg. Left posterior tibial artery = 111mmHg. Left dorsalis pedis artery = 117mmHg. Left digit = 113 mmHg. Right Segmental Pressures Right brachial= 79mmHg. Right posterior tibial artery = 110mmHg. Right dorsalis pedis artery = 101mmHg. Indices The right ankle brachial index by the posterior tibial artery is 1.36. The right ankle brachial index by the dorsalis pedis is 1.25. The left ankle brachial index by the posterior tibial artery is 1.37. The left ankle brachial index by the dorsalis pedis is 1.44. The left digital-brachial index is 1.40. VL/Lower Ext Art Exam w/o Exercis Interpretation Summary Triphasic Doppler waveforms are noted at ankle level bilaterally. Pulse-volume recordings appear satisfactory at all levels bilaterally, though not assessed at digital level on the right due to the presence of a right great toe wound. The resting right ankle-brachial index is normal. The resting left ankle-brachial index is supra-normal. The right digital-brachial index was not determined due to the presence of a right great toe wound. The left digital-brachial index is supra-normal. There is evidence of arterial calcification in the arterial tree of the distal left lower extremity. There is no evidence of significant arterial occlusive disease in the lower ext remities. The patient's systemic blood pressure based upon arm pressures was 94/62. Clinical correlation is advised. Ordering Physician: Chandrakant Hernandez Referring Physician: Migue Silveira Performed By: Lynda Parham RDCS/RVT
[2023-07-03 14:32] VITALS: BP 102/60; PULSE 76; RESP 20; TEMP 36.3; BMI 38.7
--- NOTE | 2023-07-03 17:08 | PN.PCM_ITS ---
History of Present Illness Date of Service: 07/03/23 Chief Complaint: Right and left DFU ulcers History of Wound: 52-year-old white female that is diabetic works at a retirement pretty much every day averaging 12 to 16 hours a day. Patient does not manage her blood sugars well is on insulin for her type II. That is not managed well. Her blood sugars run at least greater than 500. States her A1c is well over 14. She currently sees Dr. Alonso podiatry out of [facility]. Her biggest problem is callusing over her bony prominences of her foot. She has some cracked heels and a crack underneath her great toes. All the wounds seem to be superficial. Patient wears crocs and she also wears no shoes when she is in the house at the retirement. Since the last time I saw her she has developed an ulcer under her right great toe that has positive depth. Looks like it was a blister that has opened. We will obtain cultures at this time. Patient does complain of pain up in her lower extremity but has a lot of edema. Subjective Subjective Ms. Sherwood is a 53-year-old diabetic female presenting clinic today for follow-up of full-thickness ulceration to the left big toe. Patient has been taking her doxycycline as prescribed. She did obtain her pulse volume recordings which show her vascular status to be within normal limits to bilateral lower extremity. She is working on her blood sugar. She understands that she is at great risk for amputation secondary to infection/bone infection of the right big toe. She denies any trauma. Denies constitutional symptoms. No other pedal complaints at this time. Objective Data Objective Data Vital Signs: Vital Signs Temp Pulse Resp BP 97.4 F L 76 20 H 102/60 07/03/23 14:32 07/03/23 14:32 07/03/23 14:32 07/03/23 14:32 Weight: 122.47 kg Body Mass Index (BMI) 38.7 Lab / Micro Data Attestation: I reviewed the patient's lab results. Physical Exam Narrative Neurovascular status unchanged. Evidence of blanchable erythema without proximal streaking. Nonpitting edema appreciated to the right hallux. Full- thickness ulceration to the medial aspect of the right hallux with hyperkeratotic periwound. Wound measures 2.0 x 0.9 x 0.2 cm. No malodor or probe to bone. No pain with calf compression. Excisional debridement down to including subcutaneous tissue to the right hallux with #15 blade without incident. Predebridement measurements were 1.5 x 0.6 x 0.1 cm. Postdebridement measurements are 2.0 x 0.9 x 0.2 cm. Debridement Note Debridement Note Debridement Free Text: Excisional debridement down to including subcutaneous tissue to the right hallux with #15 blade without incident. Predebridement measurements were 1.5 x 0.6 x 0.1 cm. Postdebridement measurements are 2.0 x 0.9 x 0.2 cm. Post-Debridement Measurements and Additional Note: Post-Debridement Measurements/Treatment WC - Nurse 1 - General Ulcer Assessment Start: 07/03/23 14:31 Freq: Status: Active Protocol: EMEKA Activity Type Activity Date Activity User E-sign Co-sign Detail Recorded Client Recorded Date Recorded By Document 07/03/23 14:32 DL [id number] 07/03/23 14:40 DL 07/03/23 14:32 WC - Today's Visit Information Type of service Follow-up Visit (Physician/HOUSE SERVANT ) Arrival Mode Ambulatory Transfer Assistance None Patient Identification Verified (Name & Yes ) Patient Requires Transmission-Based No Precautions Height and Weight Weight Measurement Method Standing Scale Body Mass Index (BMI) 38.7 BMI Classification Obese Vital Signs Temperature (97.8 F-99.1 F) 97.4 F L Temperature Source Temporal Pulse Rate (60-100) 76 Pulse Location Monitor Respiratory Rate (12-18) 20 H Respiratory rate source Observation Blood Pressure (90/60-120/80) 102/60 Blood Pressure Mean (mm Hg) 74 Source Monitor History Since Last Visit- (Skip if this is Patient's initial visit) Have you changed medications since your No last visit? Any new allergies or adverse reactions No Had a fall/change in ADL's that may No increase risk of falls Signs or symptoms of abuse and/or No neglect since last visit Have you been in the hospital since your No last visit? Has dressing in place as prescribed Yes Has compression in place as prescribed N/A Experienced any changes in pain level or No management Pain Scale: 0-10 Numeric Is Patient Pain Free? Yes - Nurse 1 - General Ulcer Measurement Start: 07/03/23 14:31 Freq: Status: Active Protocol: Activity Type Activity Date Activity User E-sign Co-sign Detail Recorded Client Recorded Date Recorded By Document 07/03/23 14:32 DL [id number] 07/03/23 14:40 DL 07/03/23 14:32 Wound Center Nurse 1 4. R hallux -Current Size (cm) - Length 1 -Current Size (cm) - Width 1.2 -Current Size (cm) - Depth 0.2 -Total Square Cm 1.2 -Exudate Amt Small -Wound Margin Thickened -Granulation Amt Large (67-100%) -Granulation Quality Pale,Agar -Necrosis Amt Small (1-33%) -Necrotic Tissue Type Eschar -Structure Exposed N/A -Texture (Megan-wound Skin Appearance) Callus, Localized Edema ,Scarring -Moisture (Megan-wound Skin Appearance) No Abnormality -Color (Megan-wound Skin Appearance) Erythema -Temperature (Megan-wound Skin No Abnormality Appearance) (Pt Warm) -Tenderness on Palpation (Megan-wound No Skin Appearance) -Ulcer Cleansing Wound Cleanser -Foul Odor after Cleansing No -Anesthetic Used 5% Lidocaine Gel Right Calf (cm) 44.5 Right Ankle (cm) 28.5 WC - Nurse 2 - General Ulcer CM Notes Start: 07/03/23 14:31 Freq: Status: Active Protocol: Activity Type Activity Date Activity User E-sign Co-sign Detail Recorded Client Recorded Date Recorded By Document 07/03/23 15:14 [id number] 07/03/23 15:19 07/03/23 15:14 Wound Center Nurse 2 4. R hallux -Time 15:14 -Correct Patient Yes -Correct Side, Site, Position Yes -Correct Procedure Yes -Procedure Performed Yes -Type of Procedure Debridement -Clinical Debridement Subcutaneous -Tissue Removed Subcutaneous -Post Debridement (cm) - Length 2.0 -Post Debridement (cm) - Width 0.9 -Post Debridement (cm) - Depth 0.2 -Total Square (Post) (cm) 1.80 -Area of Debridement (cm) - Length 2.0 -Area of Debridement (cm) - Width 0.9 -Total Square (Area) (cm) 1.80 -Tunneling No -Undermining/Tunneling No -Circular Undermining No -Wound/Ulcer Outcome Not Healed -Ulcer Cleansing Rinsed/ Irrigated with Saline -Foul Odor after Cleansing No -Bioengineered Tissue No -Bleeding Controlled with Pressure -Treatment Response Procedure Tolerated Well -Offloading No -Debridement - Subq, 1st 20sq cm Yes Pain Scale: 0-10 Numeric Is Patient Pain Free? Yes - Nurse 3 - General Ulcer D/C NN Start: 07/03/23 14:31 Freq: Status: Active Protocol: Activity Type Activity Date Activity User E-sign Co-sign Detail Recorded Client Recorded Date Recorded By Document 07/03/23 15:32 DL [id number] 07/03/23 15:33 DL 07/03/23 15:32 Wound Care Center Nurse 3 4. R hallux -Ulcer Cleansing Rinsed/ Irrigated with Saline -Foul Odor after Cleansing No -Primary Dressing Applied Promogran Allyn Matter -Other Dressing betadine -Primary Dressing Covered/Secured with Dry Gauze -Other Covering coban -Promogran Allyn Matter 1 Treatment Response Procedure Tolerated Well Pain Scale: 0-10 Numeric Is Patient Pain Free? Yes - Visit Discharge Discharge Condition Stable Ambulatory Status Ambulatory Transportation Private Auto Assessment/Plan Assessment/Plan (1) Diabetic foot ulcer associated with type 2 diabetes mellitus: CODE(S): E11.621 - Type 2 diabetes mellitus with foot ulcer; L97.509 - Non-pressure chronic ulcer of other part of unspecified foot with unspecified severity QUALIFIERS: Diabetic foot ulcer location: toe Laterality: right Non-pressure ulcer stage: limited to breakdown of skin Qualified Code(s): E11.621 - Type 2 diabetes mellitus with foot ulcer; L97.511 - Non-pressure chronic ulcer of other part of right foot limited to breakdown of skin PLAN: Patient was examined evaluated. All findings were discussed with the patient. All questions were answered to the patient satisfaction. Patient understands the risk for increased high blood sugar as well as A1c. 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 Reviewed the patient's PVRs which show to be within normal limits. The patient's wound cultures were also reviewed to show evidence of 2 organisms being grown that are both sensitive to doxycycline/tetracyclines. The patient is to continue her doxycycline until gone.. Follow-up in 1 week. (2) Uncontrolled diabetes mellitus with hyperglycemia: CODE(S): E11.65 - Type 2 diabetes mellitus with hyperglycemia QUALIFIERS: Diabetes mellitus type: type 2 Qualified Code(s): E11.65 - Type 2 diabetes mellitus with hyperglycemia (3) Diabetic ulcer of foot associated with diabetes mellitus due to underlying condition, limited to breakdown of skin: CODE(S): E08.621 - Diabetes mellitus due to underlying condition with foot ulcer; L97.501 - Non-pressure chronic ulcer of other part of unspecified foot limited to breakdown of skin QUALIFIERS: Diabetic foot ulcer location: toe Laterality: left Qualified Code(s): E08.621 - Diabetes mellitus due to underlying condition with foot ulcer; L97.521 - Non-pressure chronic ulcer of other part of left foot limited to breakdown of skin PLAN: Excisional debridement down to including subcutaneous tissue to the right hallux with #15 blade without incident. Predebridement measurements were 1.5 x 0.6 x 0.1 cm. Postdebridement measurements are 2.0 x 0.9 x 0.2 cm. (4) Cellulitis: CODE(S): L03.90 - Cellulitis, unspecified PLAN: Improving with oral antibiotics, doxycycline. Patient was educated to take her antibiotics until gone. She was understanding.
[2023-07-10 13:20] VITALS: BP 122/74; PULSE 86; RESP 18; TEMP 36.1; BMI 38.7
[2023-07-10 13:54] LABS: Bedside Glucose > 500 mg/dL (74-106)
--- NOTE | 2023-07-10 16:50 | PN.PCM_ITS ---
History of Present Illness Date of Service: 07/10/23 Chief Complaint: Right and left DFU ulcers History of Wound: Mrs. Sherwood is a 53-year-old uncontrolled diabetic seen in the wound care center today with a chief complaint of full-thickness ulceration to the right big toe. As the patient presents today at the wound care center she is vomiting secondary to feeling nauseous and sick. She admits to not eating for the past 2 days. When questioned about her blood sugar levels, she says that her monitor only reads high and does not give a number. When tested in the wound care center today the patient's blood sugar was greater than 600 as are meter can only go as high as 600 mg/dL. She admits to vomiting and chills. She denies any trauma. Denies any other pedal complaints. Subjective Subjective Mrs. Sherwood is a 53-year-old uncontrolled diabetic seen in the wound care center today with a chief complaint of full-thickness ulceration to the right big toe. As the patient presents today at the wound care center she is vomiting secondary to feeling nauseous and sick. She admits to not eating for the past 2 days. When questioned about her blood sugar levels, she says that her monitor only reads high and does not give a number. When tested in the wound care center today the patient's blood sugar was greater than 600 as are meter can only go as high as 600 mg/dL. She admits to vomiting and chills. She denies any trauma. Denies any other pedal complaints. Objective Data Objective Data Vital Signs: Vital Signs Temp Pulse Resp BP 97 F L 86 18 122/74 H 07/10/23 13:20 07/10/23 13:20 07/10/23 13:20 07/10/23 13:20 Weight: 122.47 kg Body Mass Index (BMI) 38.7 Lab / Micro Data Attestation: I reviewed the patient's lab results. Labs: Laboratory Results - last 24 hr 07/10/23 13:34: POC Glucose > 500 H* Physical Exam Narrative Neurovascular status unchanged. Full-thickness ulceration appreciated to the right hallux. Wound base is fibrogranular with hyperkeratotic rim. No drainage or malodor. No probe to bone. Wound measurement is 1.5 x 0.7 x 0.2 cm. No pain to the full-thickness ulceration. No pain with calf compression. Excisional debridement down to including subcutaneous tissue with number 5 mm dermal curette to the right hallux without incident. Predebridement measurements were 0.6 x 0.4 x 0.2 cm. Postdebridement measurements are 1.5 x 0.7 x 0.2 cm. Wound was dressed with Allyn, Betadine paint and sterile Band- Aid. Const alert; Negative for healthy appearing or well nourished Debridement Note Debridement Note Debridement Free Text: Excisional debridement down to including subcutaneous tissue with number 5 mm dermal curette to the right hallux without incident. Predebridement measurements were 0.6 x 0.4 x 0.2 cm. Postdebridement measurements are 1.5 x 0.7 x 0.2 cm. Wound was dressed with Allyn, Betadine paint and sterile Band-Aid. Post-Debridement Measurements and Additional Note: Post-Debridement Measurements/Treatment WC - Nurse 1 - General Ulcer Assessment Start: 07/03/23 14:31 Freq: Status: Active Protocol: EMEKA Activity Type Activity Date Activity User E-sign Co-sign Detail Recorded Client Recorded Date Recorded By Document 07/03/23 14:32 DL [id number] 07/03/23 14:40 DL Document 07/10/23 13:20 RB [id number] 07/10/23 13:23 RB 07/03/23 07/10/23 14:32 13:20 WC - Today's Visit Information Type of service Follow-up Visit Follow-up Visit (Physician/LAB TECHNICIAN (Physician/LAB TECHNICIAN ) ) Arrival Mode Ambulatory Ambulatory Transfer Assistance None None Patient Identification Verified (Name & Yes Yes ) Patient Requires Transmission-Based No No Precautions Height and Weight Weight Measurement Method Standing Scale Body Mass Index (BMI) 38.7 38.7 BMI Classification Obese Obese Vital Signs Temperature (97.8 F-99.1 F) 97.4 F L 97 F L Temperature Source Temporal Temporal Pulse Rate (60-100) 76 86 Pulse Location Monitor Monitor Respiratory Rate (12-18) 20 H 18 Respiratory rate source Observation Observation Blood Pressure (90/60-120/80) 102/60 122/74 H Blood Pressure Mean (mm Hg) 74 90 Source Monitor Monitor Position Semi-Fowlers Blood Pressure Location Left Arm History Since Last Visit- (Skip if this is Patient's initial visit) Have you changed medications since your No No last visit? Any new allergies or adverse reactions No No Had a fall/change in ADL's that may No No increase risk of falls Signs or symptoms of abuse and/or No No neglect since last visit Have you been in the hospital since your No No last visit? Has dressing in place as prescribed Yes Yes Has compression in place as prescribed N/A No Has offloadiing in place as prescribed No Experienced any changes in pain level or No No management Pain Scale: 0-10 Numeric Is Patient Pain Free? Yes Yes WC - Nurse 1 - General Ulcer Measurement Start: 07/03/23 14:31 Freq: Status: Active Protocol: Activity Type Activity Date Activity User E-sign Co-sign Detail Recorded Client Recorded Date Recorded By Document 07/03/23 14:32 DL [id number] 07/03/23 14:40 DL Document 07/10/23 13:20 RB [id number] 07/10/23 13:23 RB 07/03/23 07/10/23 14:32 13:20 Wound Center Nurse 1 4. R hallux -Combined with other wound No -Current Size (cm) - Length 1 0.6 -Current Size (cm) - Width 1.2 0.4 -Current Size (cm) - Depth 0.2 0.2 -Total Square Cm 1.2 0.24 -Tunneling No -Undermining/Tunneling No -Circular Undermining No -Exudate Amt Small Medium -Exudate Type Serosanguineous -Wound Margin Thickened Epibole -Granulation Amt Large (67-100%) Medium (34-66%) -Granulation Quality Pale,[facility] -Slough/Fibrin Yes -Necrosis Amt Small (1-33%) Medium (34-66%) -Necrotic Tissue Type Eschar Adherent Slough -Structure Exposed N/A N/A -Texture (Megan-wound Skin Appearance) Callus, Callus Localized Edema ,Scarring -Moisture (Megan-wound Skin Appearance) No Abnormality Assessed -Color (Megan-wound Skin Appearance) Erythema Assessed -Temperature (Megan-wound Skin No Abnormality No Abnormality Appearance) (Pt Warm) (Pt Warm) -Tenderness on Palpation (Megan-wound No No Skin Appearance) -Ulcer Cleansing Wound Cleanser Wound Cleanser -Foul Odor after Cleansing No No -Anesthetic Used 5% Lidocaine 5% Lidocaine Gel Gel -Wound Comment(s) pt c/o nausea and vomiting past couple days . pt blood sugar monitor reads Hi presently Right Calf (cm) 44.5 Right Ankle (cm) 28.5 - Nurse 2 - General Ulcer CM Notes Start: 07/03/23 14:31 Freq: Status: Active Protocol: Activity Type Activity Date Activity User E-sign Co-sign Detail Recorded Client Recorded Date Recorded By Document 07/03/23 15:14 [id number] 07/03/23 15:19 Document 07/10/23 13:28 [id number] 07/10/23 13:30 07/03/23 07/10/23 15:14 13:28 Wound Center Nurse 2 4. R hallux -Time 15:14 13:28 -Correct Patient Yes Yes -Correct Side, Site, Position Yes Yes -Correct Procedure Yes Yes -Procedure Performed Yes Yes -Type of Procedure Debridement Debridement -Clinical Debridement Subcutaneous Subcutaneous -Tissue Removed Subcutaneous Subcutaneous -Post Debridement (cm) - Length 2.0 1.5 -Post Debridement (cm) - Width 0.9 0.7 -Post Debridement (cm) - Depth 0.2 0.2 -Total Square (Post) (cm) 1.80 1.05 -Area of Debridement (cm) - Length 2.0 1.5 -Area of Debridement (cm) - Width 0.9 0.7 -Total Square (Area) (cm) 1.80 1.05 -Tunneling No No -Undermining/Tunneling No No -Circular Undermining No No -Wound/Ulcer Outcome Not Healed Not Healed -Ulcer Cleansing Rinsed/ Rinsed/ Irrigated with Irrigated with Saline Saline -Foul Odor after Cleansing No No -Bioengineered Tissue No No -Bleeding Controlled with Pressure Pressure -Treatment Response Procedure Procedure Tolerated Well Tolerated Well -Offloading No No -Debridement - Subq, 1st 20sq cm Yes Yes Pain Scale: 0-10 Numeric Is Patient Pain Free? Yes Yes - Nurse 3 - General Ulcer D/C NN Start: 07/03/23 14:31 Freq: Status: Active Protocol: Activity Type Activity Date Activity User E-sign Co-sign Detail Recorded Client Recorded Date Recorded By Document 07/03/23 15:32 DL [id number] 07/03/23 15:33 DL 07/03/23 15:32 Wound Care Center Nurse 3 4. R hallux -Ulcer Cleansing Rinsed/ Irrigated with Saline -Foul Odor after Cleansing No -Primary Dressing Applied Promogran Allyn Matter -Other Dressing betadine -Primary Dressing Covered/Secured with Dry Gauze -Other Covering coban -Promogran Allyn Matter 1 Treatment Response Procedure Tolerated Well Pain Scale: 0-10 Numeric Is Patient Pain Free? Yes WC - Visit Discharge Discharge Condition Stable Ambulatory Status Ambulatory Transportation Private Auto Assessment/Plan Assessment/Plan (1) Diabetic keto-acidosis: CODE(S): E11.10 - Type 2 diabetes mellitus with ketoacidosis without coma QUALIFIERS: Diabetes mellitus type: type 2 Diabetes mellitus complication detail: without coma Qualified Code(s): E11.10 - Type 2 diabetes mellitus with ketoacidosis without coma PLAN: The patient's time at the wound care center she showed evidence of vomiting and chills. Patient's blood sugar was tested in the wound care center and showed to be greater than 600 mg/dL with our monitor. The monitor only reads a maximum of 600 so I believe her blood sugar was much higher. Patient was sent to the emergency department which according to hospital vigorous wide. Patient had many blood draws which showed her glucose to be reading 895 mg/dL. Patient will be monitored while in the emergency department and will follow-up with me at the wound care center in 1 week. (2) Diabetic foot ulcer associated with type 2 diabetes mellitus: CODE(S): E11.621 - Type 2 diabetes mellitus with foot ulcer; L97.509 - Non-pressure chronic ulcer of other part of unspecified foot with unspecified severity QUALIFIERS: Diabetic foot ulcer location: toe Laterality: right Non-pressure ulcer stage: limited to breakdown of skin Qualified Code(s): E11.621 - Type 2 diabetes mellitus with foot ulcer; L97.511 - Non-pressure chronic ulcer of other part of right foot limited to breakdown of skin PLAN: Patient was examined evaluated. All findings were discussed with the patient. All questions were answered to the patient satisfaction. Excisional debridement down to including subcutaneous tissue with number 5 mm dermal curette to the right hallux without incident. Predebridement measurements were 0.6 x 0.4 x 0.2 cm. Postdebridement measurements are 1.5 x 0.7 x 0.2 cm. Wound was dressed with Allyn, Betadine paint and sterile Band- Aid. Follow-up 1 week (3) Uncontrolled diabetes mellitus with hyperglycemia: CODE(S): E11.65 - Type 2 diabetes mellitus with hyperglycemia QUALIFIERS: Diabetes mellitus type: type 2 Qualified Code(s): E11.65 - Type 2 diabetes mellitus with hyperglycemia
[2023-07-24 15:43] VITALS: BP 126/80; PULSE 87; RESP 20; TEMP 36.3; BMI 38.7
--- NOTE | 2023-07-24 17:43 | PN.PCM_ITS ---
History of Present Illness Date of Service: 07/24/23 Chief Complaint: Right and left DFU ulcers History of Wound: Mrs. Sherwood is a 53-year-old uncontrolled diabetic seen in the wound care center today with a chief complaint of full-thickness ulceration to the right big toe. As the patient presents today at the wound care center she is vomiting secondary to feeling nauseous and sick. She admits to not eating for the past 2 days. When questioned about her blood sugar levels, she says that her monitor only reads high and does not give a number. When tested in the wound care center today the patient's blood sugar was greater than 600 as are meter can only go as high as 600 mg/dL. She admits to vomiting and chills. She denies any trauma. Denies any other pedal complaints. Subjective Subjective Mrs. Sherwood is a diabetic 53-year-old female presenting to the wound care center today for follow-up of full-thickness ulceration to the right hallux. Patient was admitted to the hospital approximately 1 to 2 weeks ago secondary to hy perglycemia she was treated and discharged. The patient states that she is feeling better and grateful for her care. She continues to dress her wound as instructed. She denies any trauma. Denies constitutional symptoms. No other pedal complaints at this time. Objective Data Objective Data Vital Signs: Vital Signs Temp Pulse Resp BP 97.4 F L 87 20 H 126/80 H 07/24/23 15:43 07/24/23 15:43 07/24/23 15:43 07/24/23 15:43 Weight: 122.47 kg Body Mass Index (BMI) 38.7 Physical Exam Narrative Neurovascular status unchanged. Evidence of full-thickness ulceration appreciated right hallux measuring 0.9 x 0.4 x 0.2 cm. Wound base is granular nature. No probe to bone or sign of infection. No pain with calf compression. Excisional debridement down to and including subcutaneous tissue with number 5 mm dermal curette to the right hallux. Predebridement measurement is dry eschar. Postdebridement measurement is 0.9 x 0.4 x 0.2 cm. Debridement Note Debridement Note Debridement Free Text: Excisional debridement down to and including subcutaneous tissue with number 5 mm dermal curette to the right hallux. Predebridement measurement is dry eschar. Postdebridement measurement is 0.9 x 0.4 x 0.2 cm. Post-Debridement Measurements and Additional Note: Post-Debridement Measurements/Treatment WC - Nurse 1 - General Ulcer Assessment Start: 07/03/23 14:31 Freq: Status: Active Protocol: EMEKA Activity Type Activity Date Activity User E-sign Co-sign Detail Recorded Client Recorded Date Recorded By Document 07/03/23 14:32 DL [id number] 07/03/23 14:40 DL Document 07/10/23 13:20 RB [id number] 07/10/23 13:23 RB Document 07/24/23 15:43 DL Desktop 07/24/23 15:46 DL 07/03/23 07/10/23 07/24/23 14:32 13:20 15:43 WC - Today's Visit Information Type of service Follow-up Visit Follow-up Visit Follow-up Visit (Physician/EXTRACORPOREAL CIRCULATION SPECIALIST (Physician/EXTRACORPOREAL CIRCULATION SPECIALIST (Physician/EXTRACORPOREAL CIRCULATION SPECIALIST ) ) ) Arrival Mode Ambulatory Ambulatory Ambulatory Transfer Assistance None None None Patient Identification Verified (Name & Yes Yes Yes ) Patient Requires Transmission-Based No No No Precautions Finger Stick Blood Sugar(mg/dl) (if 193 indicated): Blood Sugar Stated by Patient Height and Weight Weight Measurement Method Standing Scale Body Mass Index (BMI) 38.7 38.7 38.7 BMI Classification Obese Obese Obese Vital Signs Temperature (97.8 F-99.1 F) 97.4 F L 97 F L 97.4 F L Temperature Source Temporal Temporal Temporal Pulse Rate (60-100) 76 86 87 Pulse Location Monitor Monitor Monitor Respiratory Rate (12-18) 20 H 18 20 H Respiratory rate source Observation Observation Observation Blood Pressure (90/60-120/80) 102/60 122/74 H 126/80 H Blood Pressure Mean (mm Hg) 74 90 95 Source Monitor Monitor Monitor Position Semi-Fowlers Blood Pressure Location Left Arm History Since Last Visit- (Skip if this is Patient's initial visit) Have you changed medications since your No No No last visit? Any new allergies or adverse reactions No No No Had a fall/change in ADL's that may No No No increase risk of falls Signs or symptoms of abuse and/or No No No neglect since last visit Have you been in the hospital since your No No No last visit? Has dressing in place as prescribed Yes Yes Yes Has compression in place as prescribed N/A No N/A Has offloadiing in place as prescribed No No Experienced any changes in pain level or No No No management Pain Scale: 0-10 Numeric Is Patient Pain Free? Yes Yes Yes WC - Nurse 1 - General Ulcer Measurement Start: 07/03/23 14:31 Freq: Status: Active Protocol: Activity Type Activity Date Activity User E-sign Co-sign Detail Recorded Client Recorded Date Recorded By Document 07/03/23 14:32 DL [id number] 07/03/23 14:40 DL Document 07/10/23 13:20 RB [id number] 07/10/23 13:23 RB Document 07/24/23 15:43 DL Desktop 07/24/23 15:46 DL 07/03/23 07/10/23 07/24/23 14:32 13:20 15:43 Wound Center Nurse 1 4. R hallux -Combined with other wound No -Current Size (cm) - Length 1 0.6 1.3 -Current Size (cm) - Width 1.2 0.4 1.5 -Current Size (cm) - Depth 0.2 0.2 0.1 -Total Square Cm 1.2 0.24 1.95 -Tunneling No -Undermining/Tunneling No -Circular Undermining No -Exudate Amt Small Medium Small -Exudate Type Serosanguineous Serosanguineous -Wound Margin Thickened Epibole Thickened -Granulation Amt Large (67-100%) Medium (34-66%) Small (1-33%) -Granulation Quality Pale,[place] -Slough/Fibrin Yes -Necrosis Amt Small (1-33%) Medium (34-66%) Large (67-100%) -Necrotic Tissue Type Eschar Adherent Slough Eschar -Structure Exposed N/A N/A N/A -Texture (Megan-wound Skin Appearance) Callus, Callus Scarring Localized Edema ,Scarring -Moisture (Megan-wound Skin Appearance) No Abnormality Assessed No Abnormality -Color (Megan-wound Skin Appearance) Erythema Assessed No Abnormality -Temperature (Megan-wound Skin No Abnormality No Abnormality No Abnormality Appearance) (Pt Warm) (Pt Warm) (Pt Warm) -Tenderness on Palpation (Megan-wound No No Skin Appearance) -Ulcer Cleansing Wound Cleanser Wound Cleanser Soap and Water -Foul Odor after Cleansing No No No -Anesthetic Used 5% Lidocaine 5% Lidocaine 5% Lidocaine Gel Gel Gel -Wound Comment(s) pt c/o nausea and vomiting past couple days . pt blood sugar monitor reads Hi presently Right Calf (cm) 44.5 Right Ankle (cm) 28.5 WC - Nurse 2 - General Ulcer CM Notes Start: 07/03/23 14:31 Freq: Status: Active Protocol: Activity Type Activity Date Activity User E-sign Co-sign Detail Recorded Client Recorded Date Recorded By Document 07/03/23 15:14 [id number] 07/03/23 15:19 Document 07/10/23 13:28 [id number] 07/10/23 13:30 Document 07/24/23 15:50 Desktop 07/24/23 15:58 07/03/23 07/10/23 07/24/23 15:14 13:28 15:50 Wound Center Nurse 2 4. R hallux -Time 15:14 13:28 15:51 -Correct Patient Yes Yes Yes -Correct Side, Site, Position Yes Yes Yes -Correct Procedure Yes Yes Yes -Procedure Performed Yes Yes Yes -Type of Procedure Debridement Debridement Debridement -Clinical Debridement Subcutaneous Subcutaneous Subcutaneous -Tissue Removed Subcutaneous Subcutaneous Subcutaneous -Post Debridement (cm) - Length 2.0 1.5 0.9 -Post Debridement (cm) - Width 0.9 0.7 0.4 -Post Debridement (cm) - Depth 0.2 0.2 0.2 -Total Square (Post) (cm) 1.80 1.05 0.36 -Area of Debridement (cm) - Length 2.0 1.5 0.9 -Area of Debridement (cm) - Width 0.9 0.7 0.4 -Total Square (Area) (cm) 1.80 1.05 0.36 -Tunneling No No No -Undermining/Tunneling No No No -Circular Undermining No No No -Wound/Ulcer Outcome Not Healed Not Healed Not Healed -Ulcer Cleansing Rinsed/ Rinsed/ Rinsed/ Irrigated with Irrigated with Irrigated with Saline Saline Saline -Foul Odor after Cleansing No No No -Bioengineered Tissue No No No -Bleeding Controlled with Pressure Pressure Pressure -Treatment Response Procedure Procedure Procedure Tolerated Well Tolerated Well Tolerated Well -Offloading No No No -Debridement - Subq, 1st 20sq cm Yes Yes Yes Pain Scale: 0-10 Numeric Is Patient Pain Free? Yes Yes Yes - Nurse 3 - General Ulcer D/C NN Start: 07/03/23 14:31 Freq: Status: Active Protocol: Activity Type Activity Date Activity User E-sign Co-sign Detail Recorded Client Recorded Date Recorded By Document 07/03/23 15:32 DL [id number] 07/03/23 15:33 DL Document 07/24/23 16:09 BM Desktop 07/24/23 16:11 [facility] 07/03/23 07/24/23 15:32 16:09 Wound Care Center Nurse 3 4. R hallux -Ulcer Cleansing Rinsed/ Rinsed/ Irrigated with Irrigated with Saline Saline -Foul Odor after Cleansing No No -Primary Dressing Applied Promogran Promogran Allyn Matter Allyn Matter -Other Dressing betadine BETADINE TO MEGAN WOUND -Primary Dressing Covered/Secured with Dry Gauze Dry Gauze, Secured with Tape -Other Covering coban SECURED W/ [place] LIGHTLY -Promogran Allyn Matter 1 1 Treatment Response Procedure Procedure Tolerated Well Tolerated Well Pain Scale: 0-10 Numeric Is Patient Pain Free? Yes Yes WC - Visit Discharge Discharge Condition Stable Stable Ambulatory Status Ambulatory Ambulatory Transportation Private Auto Private Auto Accompanied by MOM Assessment/Plan Assessment/Plan (1) Type 2 diabetes mellitus with foot ulcer: CODE(S): E11.621 - Type 2 diabetes mellitus with foot ulcer; L97.509 - Non-pressure chronic ulcer of other part of unspecified foot with unspecified severity QUALIFIERS: Diabetes mellitus fpc insulin use: with joint terminal attack controller use Qualified Code(s): E11.621 - Type 2 diabetes mellitus with foot ulcer; L97.509 - Non-pressure chronic ulcer of other part of unspecified foot with unspecified severity; Z79.4 - terminal superintendent (current) use of insulin PLAN: Patient examined evaluated. All findings were discussed with the patient. All questions were answered to the patient's satisfaction. Excisional debridement down to and including subcutaneous tissue with number 5 mm dermal curette to the right hallux. Predebridement measurement is dry es vincenzo. Postdebridement measurement is 0.9 x 0.4 x 0.2 cm. Ulceration was dressed with Allyn, Betadine paint sterile Band-Aid. Patient instructed to change her dressing daily. She will follow-up in 1 week for evaluation. She left the office pleased with the visit. (2) Diabetic ulcer of foot associated with diabetes mellitus due to underlying condition, limited to breakdown of skin: CODE(S): E08.621 - Diabetes mellitus due to underlying condition with foot ulcer; L97.501 - Non-pressure chronic ulcer of other part of unspecified foot limited to breakdown of skin QUALIFIERS: Diabetic foot ulcer location: toe Laterality: left Qualified Code(s): E08.621 - Diabetes mellitus due to underlying condition with foot ulcer; L97.521 - Non-pressure chronic ulcer of other part of left foot limited to breakdown of skin (3) Uncontrolled diabetes mellitus with hyperglycemia: CODE(S): E11.65 - Type 2 diabetes mellitus with hyperglycemia QUALIFIERS: Diabetes mellitus type: type 2 Qualified Code(s): E11.65 - Type 2 diabetes mellitus with hyperglycemia
== END 2023-07-27 23:59 | disposition home or self-care (01) ==
LOC: WC 15:45
PROVIDERS: PCP Student in an Organized Health Care Education/Training Program; Referring Provider Student in an Organized Health Care Education/Training Program; Visit Provider Podiatrist Foot & Ankle Surgery
DX: E11.621 Type 2 diabetes mellitus with foot ulcer (principal); L97.511 Non-pressure chronic ulcer of other part of right foot limited to breakdown of skin; L97.521 Non-pressure chronic ulcer of other part of left foot limited to breakdown of skin; E11.65 Type 2 diabetes mellitus with hyperglycemia; E11.10 Type 2 diabetes mellitus with ketoacidosis without coma; Z79.4 Long term (current) use of insulin; R68.83 Chills (without fever); R11.10 Vomiting, unspecified; Z79.82 Long term (current) use of aspirin; Z79.899 Other long term (current) drug therapy
CPT/HCPCS: 11042; 82962; 93923

== ENCOUNTER 2023-08-07 13:00 | Outpatient (RCR) | payer OTHER, SELFPAY ==
[2023-07-28 00:39] VITALS: BP 126/80; PULSE 87; RESP 20; TEMP 36.3; BMI 38.7
[2023-07-31 13:11] VITALS: BP 144/81; PULSE 81; RESP 16; TEMP 35.6; BMI 38.7
--- NOTE | 2023-07-31 13:52 | PCM.WC.PN ---
History of Present Illness Date of Service: 07/31/23 Chief Complaint: Right and left DFU ulcers History of Wound: Mrs. Sherwood is a 53-year-old uncontrolled diabetic seen in the wound care center today with a chief complaint of full-thickness ulceration to the right big toe. As the patient presents today at the wound care center she is vomiting secondary to feeling nauseous and sick. She admits to not eating for the past 2 days. When questioned about her blood sugar levels, she says that her monitor only reads high and does not give a number. When tested in the wound care center today the patient's blood sugar was greater than 600 as are meter can only go as high as 600 mg/dL. She admits to vomiting and chills. She denies any trauma. Denies any other pedal complaints. Subjective Subjective Mrs. Sherwood is a 53-year-old diabetic female presenting for follow-up of full-thickness ulceration to the right hallux. Patient has been compliant with home dressing changes as instructed during her last wound care visit. Patient does present with a new complaint of left foot pain secondary to trauma while walking barefoot in her house. She admits that she has pain to the second and third digit. She does not recall any trauma but has black and blue colorization to the top of her left foot. She denies any trauma but is unsure of it. She denies constitutional symptoms. No other pedal complaints at this time. Objective Data Objective Data Vital Signs: Vital Signs Temp Pulse Resp BP O2 Del Method 96.1 F L 81 16 144/81 H Room Air 07/31/23 13:11 07/31/23 13:11 07/31/23 13:11 07/31/23 13:11 07/31/23 13:11 Oxygen Delivery Method Room Air Weight: 122.47 kg Body Mass Index (BMI) 38.7 Lab / Micro Data Attestation: I reviewed the patient's lab results. Physical Exam Narrative Vascular: DP and PT pulses are palpable. CFT is brisk. Evidence of nonpitting edema appreciated to the left forefoot on the dorsal aspect. Skin temperature great is warm to warm from proximal ankle to distal digits. Neurological: Light touch intact. Protective sensation is diminished. Dermatological: Evidence of ecchymosis appreciated to the second and third metatarsal phalangeal joint of the left foot. Evidence of full-thickness ulceration to the right hallux measuring 0.6 x 0.5 x 0.2 cm. Evidence of hyperkeratotic periwound. No drainage, erythema or proximal streaking, probe to bone or sign infection. Excisional excisional debridement down to including subcutaneous tissue of the full-thickness ulceration of the right hallux with number 5 mm curette without incident. Predebridement measurements 0.1 x 0.1 x 0.1 cm. Postdebridement measurements are 0.6 x 0.5 x 0.2 cm. Musculoskeletal: Muscle strength 5 and 5 in all quadrants bilateral. Moderate to severe palpatory tenderness appreciated to the second and third metatarsophalangeal joint of the left foot. Pain with active and passive range of motion to the second and third digit of the left foot. No pain with calf compression bilateral lower extremity. Debridement Note Debridement Note Debridement Free Text: Excisional excisional debridement down to including subcutaneous tissue of the full-thickness ulceration of the right hallux with number 5 mm curette without incident. Predebridement measurements 0.1 x 0.1 x 0.1 cm. Postdebridement measurements are 0.6 x 0.5 x 0.2 cm. Post-Debridement Measurements and Additional Note: Post-Debridement Measurements/Treatment - Nurse 1 - General Ulcer Assessment Start: 07/31/23 13:11 Freq: Status: Active Protocol: EMEKA Activity Type Activity Date Activity User E-sign Co-sign Detail Recorded Client Recorded Date Recorded By Document 07/31/23 13:11 [facility] Desktop 07/31/23 13:19 [facility] 07/31/23 13:11 - Today's Visit Information Type of service Follow-up Visit (Physician/GLOBAL HUMAN RESOURCES DIRECTOR ) Arrival Mode Ambulatory Transfer Assistance None Accompanied by mom Patient Identification Verified (Name & Yes ) Patient Requires Transmission-Based No Precautions Height and Weight Body Mass Index (BMI) 38.7 BMI Classification Obese Vital Signs Temperature (97.8 F-99.1 F) 96.1 F L Temperature Source Temporal Pulse Rate (60-100) 81 Pulse Location Monitor Respiratory Rate (12-18) 16 Respiratory rate source Observation Oxygen Delivery Method Room Air Blood Pressure (90/60-120/80) 144/81 H Blood Pressure Mean (mm Hg) 102 Source Monitor Position Sitting Blood Pressure Location Left Arm History Since Last Visit- (Skip if this is Patient's initial visit) Have you changed medications since your No last visit? Any new allergies or adverse reactions No Had a fall/change in ADL's that may No increase risk of falls Signs or symptoms of abuse and/or No neglect since last visit Have you been in the hospital since your No last visit? Has dressing in place as prescribed Yes Has compression in place as prescribed N/A Has offloadiing in place as prescribed N/A Experienced any changes in pain level or No management Left Footwear Regular Shoe Right Footwear Regular Shoe Pain Scale: 0-10 Numeric Is Patient Pain Free? Yes - Nurse 1 - General Ulcer Measurement Start: 07/31/23 13:11 Freq: Status: Active Protocol: Activity Type Activity Date Activity User E-sign Co-sign Detail Recorded Client Recorded Date Recorded By Document 07/31/23 13:11 [facility] Desktop 07/31/23 13:19 [facility] 07/31/23 13:11 Wound Center Nurse 1 4. R hallux -Combined with other wound No -Current Size (cm) - Length 0.1 -Current Size (cm) - Width 0.1 -Current Size (cm) - Depth 0.1 -Total Square Cm 0.01 -Date of Last Picture (Recall this 07/31/23 field) -Photo Taken Yes -Epithelialization None Present -Tunneling No -Undermining/Tunneling No -Circular Undermining No -Exudate Amt Small -Exudate Type Serosanguineous -Wound Margin Fibrotic Scar, Thickened Scar -Granulation Amt None Present (0 %) -Slough/Fibrin Yes -Necrosis Amt Large (67-100%) -Necrotic Tissue Type Adherent Slough -Texture (Megan-wound Skin Appearance) Assessed, Scarring -Moisture (Megan-wound Skin Appearance) Assessed,Dry/ Scaly -Color (Megan-wound Skin Appearance) Assessed -Temperature (Megan-wound Skin No Abnormality Appearance) (Pt Warm) -Tenderness on Palpation (Megan-wound No Skin Appearance) -Ulcer Cleansing Rinsed/ Irrigated with Saline -Foul Odor after Cleansing No -Anesthetic Used 5% Lidocaine Gel SANTIAGO - Nurse 2 - General Ulcer CM Notes Start: 07/31/23 13:11 Freq: Status: Active Protocol: Activity Type Activity Date Activity User E-sign Co-sign Detail Recorded Client Recorded Date Recorded By Document 07/31/23 13:27 Laptop 07/31/23 13:28 07/31/23 13:27 Wound Center Nurse 2 -Time 13:28 -Correct Patient Yes -Correct Side, Site, Position Yes -Correct Procedure Yes -Procedure Performed Yes -Type of Procedure Debridement -Clinical Debridement Subcutaneous -Tissue Removed Subcutaneous -Post Debridement (cm) - Length 0.6 -Post Debridement (cm) - Width 0.5 -Post Debridement (cm) - Depth 0.2 -Total Square (Post) (cm) 0.30 -Area of Debridement (cm) - Length 0.6 -Area of Debridement (cm) - Width 0.5 -Total Square (Area) (cm) 0.30 -Tunneling No -Undermining/Tunneling No -Circular Undermining No -Wound/Ulcer Outcome Not Healed -Ulcer Cleansing Rinsed/ Irrigated with Saline -Foul Odor after Cleansing No -Bioengineered Tissue No -Bleeding Controlled with Pressure -Treatment Response Procedure Tolerated Well -Offloading No -Debridement - Subq, 1st 20sq cm Yes Pain Scale: 0-10 Numeric Is Patient Pain Free? Yes - Nurse 3 - General Ulcer D/C NN Start: 07/31/23 13:11 Freq: Status: Active Protocol: Activity Type Activity Date Activity User E-sign Co-sign Detail Recorded Client Recorded Date Recorded By Document 07/31/23 13:40 [facility] Desktop 07/31/23 13:41 [facility] 07/31/23 13:40 Wound Care Center Nurse 3 4. R hallux -Ulcer Cleansing Rinsed/ Irrigated with Saline -Primary Dressing Applied Promogran Allyn Matter -Primary Dressing Covered/Secured with Dry Gauze & Roll Gauze, Secured with Tape -Promogran Allyn Matter 1 Pain Scale: 0-10 Numeric Is Patient Pain Free? Yes WC - Visit Discharge Discharge Condition Stable Transportation Private Auto Medication Reconcilliation completed & No provided to patient/care provider Clinical Summary of Care Provided Yes Assessment/Plan Assessment/Plan (1) Ulcer of foot with fat layer exposed: CODE(S): L97.502 - Non-pressure chronic ulcer of other part of unspecified foot with fat layer exposed QUALIFIERS: Laterality: right Qualified Code(s): L97.512 - Non-pressure chronic ulcer of other part of right foot with fat layer exposed PLAN: Patient was examined evaluated. All findings were discussed with the patient. All questions were answered to the patient's satisfaction Excisional excisional debridement down to including subcutaneous tissue of the full-thickness ulceration of the right hallux with number 5 mm curette without incident. Predebridement measurements 0.1 x 0.1 x 0.1 cm. Postdebridement measurements are 0.6 x 0.5 x 0.2 cm. Ulceration dressed with Allyn Betadine paint and sterile Band-Aid. Patient to change her dressing daily as instructed previously. She is also continue strict blood sugar control. She was understanding of this. Follow-up in 1 week. (2) Type 2 diabetes mellitus with foot ulcer: CODE(S): E11.621 - Type 2 diabetes mellitus with foot ulcer; L97.509 - Non-pressure chronic ulcer of other part of unspecified foot with unspecified severity QUALIFIERS: Diabetes mellitus continuous churn buttermaker insulin use: with continuous churn buttermaker use Qualified Code(s): E11.621 - Type 2 diabetes mellitus with foot ulcer; L97.509 - Non-pressure chronic ulcer of other part of unspecified foot with unspecified severity; Z79.4 - watermaster (current) use of insulin (3) Diabetes mellitus with diabetic polyneuropathy: CODE(S): E11.42 - Type 2 diabetes mellitus with diabetic polyneuropathy QUALIFIERS: Diabetes mellitus type: type 2 Diabetes mellitus continuous churn buttermaker insulin use: with longterm use Qualified Code(s): E11.42 - Type 2 diabetes mellitus with diabetic polyneuropathy; Z79.4 - alf (current) use of insulin (4) Fracture of left foot affected by diabetic neuropathy: CODE(S): S92.902A - Unspecified fracture of left foot, initial encounter for closed fracture; E11.40 - Type 2 diabetes mellitus with diabetic neuropathy, unspecified QUALIFIERS: Encounter type: initial encounter Fracture type: closed Qualified Code(s): S92.902A - Unspecified fracture of left foot, initial encounter for closed fracture; E11.40 - Type 2 diabetes mellitus with diabetic neuropathy, unspecified PLAN: There is concern for fracture to the second and third digit or second and third metatarsal. Patient will be given an order to go get a weightbearing left lower extremity foot radiographs 3 view. Treatment will follow after radiograph. Patient was understanding of this. Follow-up in 1 week for evaluation.
--- NOTE | 2023-07-31 14:04 | RAD_ITS ---
STUDY: X-RAY - LEFT FOOT CLINICAL: Female, 53 years old. Fracture, left foot metatarsals 2 and 3. TECHNIQUE: 3 views of the left foot. COMPARISON: None. FINDINGS: Intact talus, calcaneus, and tarsal bones. There are small plantar and posterior calcaneal spurs. Normal visualized subtalar, talonavicular, calcaneocuboid, tarsal and tarsometatarsal articulations. Normal metatarsi. There is no demonstrated acute fracture. There is mild degenerative arthrosis of the metatarsophalangeal joint of the hallux. Normal tibial and fibular sesamoid bones. Normal phalanges of the great toe. There is mild degenerative arthrosis of the interphalangeal joint of the great toe as well as second through fifth PIP and DIP joints. Normal second through fifth metatarsophalangeal joints. Normal phalanges of the lesser toes. The soft tissue structures are unremarkable. RAD/Foot min 3 Views IMPRESSION: Mild degenerative arthrosis of the first MTP joint, interphalangeal joint of the great toe, as well as second through fifth PIP and DIP joints. Small plantar and posterior calcaneal spurs. No demonstrated acute fracture. Electronically Signed: Hilton Mercado MD at 15:29 EDT ,
[2023-08-07 12:57] VITALS: BP 94/62; PULSE 71; TEMP 35.9; BMI 38.7
--- NOTE | 2023-08-07 14:29 | PN.PCM_ITS ---
History of Present Illness Date of Service: 08/07/23 Chief Complaint: Right and left DFU ulcers History of Wound: Mrs. Sherwood is a 53-year-old uncontrolled diabetic seen in the wound care center today with a chief complaint of full-thickness ulceration to the right big toe. As the patient presents today at the wound care center she is vomiting secondary to feeling nauseous and sick. She admits to not eating for the past 2 days. When questioned about her blood sugar levels, she says that her monitor only reads high and does not give a number. When tested in the wound care center today the patient's blood sugar was greater than 600 as are meter can only go as high as 600 mg/dL. She admits to vomiting and chills. She denies any trauma. Denies any other pedal complaints. Progress of Wound: Chronic stable ulceration right hallux. Subjective Subjective Mrs. Sherwood is a 53-year-old diabetic female presenting to the wound care center today for follow-up of full-thickness ulceration to right hallux. Patient has been ambulating as tolerated. She continues to do home dressing changes as instructed. She admits her wound is smaller. She denies trauma. Denies constitutional symptoms. No other pedal complaints at this time. Objective Data Objective Data Vital Signs: Vital Signs Temp Pulse Resp BP O2 Del Method 96.7 F L 71 16 94/62 Room Air 08/07/23 12:57 08/07/23 12:57 07/31/23 13:11 08/07/23 12:57 08/07/23 12:57 Oxygen Delivery Method Room Air Weight: 122.47 kg Body Mass Index (BMI) 38.7 Physical Exam Narrative Vascular: DP and PT pulses are palpable. CFT is brisk. Evidence of nonpitting edema appreciated to the left forefoot on the dorsal aspect. Skin temperature great is warm to warm from proximal ankle to distal digits. Neurological: Light touch intact. Protective sensation is diminished. Dermatological: Ecchymosis improved appreciated to the left foot second and third metatarsal. Evidence of full-thickness ulceration to the right hallux measuring 0.6 x 0.1 x 0.2 cm. Evidence of hyperkeratotic periwound. No drainage, erythema or proximal streaking, probe to bone or sign infection. Excisional excisional debridement down to including subcutaneous tissue of the full-thickness ulceration of the right hallux with number 5 mm curette without incident. Predebridement measurements 0.1 x 0.1 x 0.1 cm. Postdebridement brown surements are 0.6 x 0.1 x 0.2 cm. Musculoskeletal: Muscle strength 5 and 5 in all quadrants bilateral. Moderate to severe palpatory tenderness appreciated to the second and third metatarsophalangeal joint of the left foot. Pain with active and passive range of motion to the second and third digit of the left foot. No pain with calf compression bilateral lower extremity. Debridement Note Debridement Note Debridement Free Text: Excisional excisional debridement down to including subcutaneous tissue of the full-thickness ulceration of the right hallux with number 5 mm curette without incident. Predebridement measurements 0.1 x 0.1 x 0.1 cm. Postdebridement measurements are 0.6 x 0.1 x 0.2 cm. Post-Debridement Measurements and Additional Note: Post-Debridement Measurements/Treatment - Nurse 1 - General Ulcer Assessment Start: 07/31/23 13:11 Freq: Status: Active Protocol: EMEKA Activity Type Activity Date Activity User E-sign Co-sign Detail Recorded Client Recorded Date Recorded By Document 07/31/23 13:11 [facility] Desktop 07/31/23 13:19 [facility] Document 08/07/23 12:57 Desktop 08/07/23 13:10 07/31/23 08/07/23 13:11 12:57 - Today's Visit Information Type of service Follow-up Visit Follow-up Visit (Physician/DIRECTOR EMPLOYMENT (Physician/DIRECTOR EMPLOYMENT ) ) Arrival Mode Ambulatory Ambulatory Transfer Assistance None None Accompanied by mom mom Patient Identification Verified (Name & Yes ) Patient Requires Transmission-Based No No Precautions Safety Precautions NA Height and Weight Body Mass Index (BMI) 38.7 38.7 BMI Classification Obese Obese Vital Signs Temperature (97.8 F-99.1 F) 96.1 F L 96.7 F L Temperature Source Temporal Temporal Pulse Rate (60-100) 81 71 Pulse Location Monitor Monitor Respiratory Rate (12-18) 16 Respiratory rate source Observation Oxygen Delivery Method Room Air Room Air Blood Pressure (90/60-120/80) 144/81 H 94/62 Blood Pressure Mean (mm Hg) 102 72 Source Monitor Monitor Position Sitting Sitting Blood Pressure Location Left Arm Right Arm History Since Last Visit- (Skip if this is Patient's initial visit) Have you changed medications since your No Yes last visit? Any new allergies or adverse reactions No No Had a fall/change in ADL's that may No No increase risk of falls Signs or symptoms of abuse and/or No No neglect since last visit Have you been in the hospital since your No No last visit? Has dressing in place as prescribed Yes Yes Has compression in place as prescribed N/A No Has offloadiing in place as prescribed N/A No Experienced any changes in pain level or No No management Left Footwear Regular Shoe Right Footwear Regular Shoe Pain Scale: 0-10 Numeric Is Patient Pain Free? Yes Yes WC - Nurse 1 - General Ulcer Measurement Start: 07/31/23 13:11 Freq: Status: Active Protocol: Activity Type Activity Date Activity User E-sign Co-sign Detail Recorded Client Recorded Date Recorded By Document 07/31/23 13:11 [facility] Desktop 07/31/23 13:19 [facility] Document 08/07/23 12:57 Desktop 08/07/23 13:10 07/31/23 08/07/23 13:11 12:57 Wound Center Nurse 1 4. R hallux -Combined with other wound No No -Current Size (cm) - Length 0.1 1.1 -Current Size (cm) - Width 0.1 1.4 -Current Size (cm) - Depth 0.1 0.2 -Total Square Cm 0.01 1.54 -Date of Last Picture (Recall this 07/31/23 field) -Photo Taken Yes -Epithelialization None Present Medium 34-66% -Tunneling No No -Undermining/Tunneling No No -Circular Undermining No No -Exudate Amt Small Medium -Exudate Type Serosanguineous Serosanguineous -Wound Margin Fibrotic Scar, Thickened Thickened Scar -Granulation Amt None Present (0 Small (1-33%) %) -Slough/Fibrin Yes No -Necrosis Amt Large (67-100%) -Necrotic Tissue Type Adherent Slough -Texture (Megan-wound Skin Appearance) Assessed, Assessed Scarring -Moisture (Megan-wound Skin Appearance) Assessed,Dry/ Assessed Scaly -Color (Megan-wound Skin Appearance) Assessed Assessed -Temperature (Megan-wound Skin No Abnormality No Abnormality Appearance) (Pt Warm) (Pt Warm) -Tenderness on Palpation (Megan-wound No Skin Appearance) -Ulcer Cleansing Rinsed/ Soap and Water Irrigated with Saline -Foul Odor after Cleansing No No -Anesthetic Used 5% Lidocaine 5% Lidocaine Gel Gel - Nurse 2 - General Ulcer CM Notes Start: 07/31/23 13:11 Freq: Status: Active Protocol: Activity Type Activity Date Activity User E-sign Co-sign Detail Recorded Client Recorded Date Recorded By Document 07/31/23 13:27 Laptop 07/31/23 13:28 Document 08/07/23 13:15 Laptop 08/07/23 13:17 07/31/23 08/07/23 13:27 13:15 Wound Center Nurse 2 4. R hallux -Time 13:28 13:15 -Correct Patient Yes Yes -Correct Side, Site, Position Yes Yes -Correct Procedure Yes Yes -Procedure Performed Yes Yes -Type of Procedure Debridement Debridement -Clinical Debridement Subcutaneous Subcutaneous -Tissue Removed Subcutaneous Subcutaneous -Post Debridement (cm) - Length 0.6 0.6 -Post Debridement (cm) - Width 0.5 0.1 -Post Debridement (cm) - Depth 0.2 0.2 -Total Square (Post) (cm) 0.30 0.06 -Area of Debridement (cm) - Length 0.6 0.6 -Area of Debridement (cm) - Width 0.5 0.1 -Total Square (Area) (cm) 0.30 0.06 -Tunneling No No -Undermining/Tunneling No No -Circular Undermining No No -Wound/Ulcer Outcome Not Healed Not Healed -Ulcer Cleansing Rinsed/ Rinsed/ Irrigated with Irrigated with Saline Saline -Foul Odor after Cleansing No No -Bioengineered Tissue No No -Bleeding Controlled with Pressure Pressure -Treatment Response Procedure Procedure Tolerated Well Tolerated Well -Offloading No No -Debridement - Subq, 1st 20sq cm Yes Yes Pain Scale: 0-10 Numeric Is Patient Pain Free? Yes Yes SANTIAGO - Nurse 3 - General Ulcer D/C NN Start: 07/31/23 13:11 Freq: Status: Active Protocol: Activity Type Activity Date Activity User E-sign Co-sign Detail Recorded Client Recorded Date Recorded By Document 07/31/23 13:40 KW Desktop 07/31/23 13:41 KW Document 08/07/23 13:33 KW Desktop 08/07/23 13:34 KW 07/31/23 08/07/23 13:40 13:33 Wound Care Center Nurse 3 4. R hallux -Ulcer Cleansing Rinsed/ Rinsed/ Irrigated with Irrigated with Saline Saline -Primary Dressing Applied Promogran Allyn Matter -Primary Dressing Covered/Secured with Dry Gauze & Dry Gauze & Roll Gauze, Roll Gauze, Secured with Secured with Tape Tape -Promogran Allyn Matter 1 Pain Scale: 0-10 Numeric Is Patient Pain Free? Yes Yes WC - Visit Discharge Discharge Condition Stable Stable Ambulatory Status Ambulatory Transportation Private Auto Private Auto Medication Reconcilliation completed & No No provided to patient/care provider Clinical Summary of Care Provided Yes Yes Assessment/Plan Assessment/Plan (1) Ulcer of foot with fat layer exposed: CODE(S): L97.502 - Non-pressure chronic ulcer of other part of unspecified foot with fat layer exposed QUALIFIERS: Laterality: right Qualified Code(s): L97.512 - Non- pressure chronic ulcer of other part of right foot with fat layer exposed PLAN: Patient was examined evaluated. All findings were discussed with the patient. All questions were answered to the patient satisfaction Excisional excisional debridement down to including subcutaneous tissue of the full-thickness ulceration of the right hallux with number 5 mm curette without incident. Predebridement measurements 0.1 x 0.1 x 0.1 cm. Postdebridement measurements are 0.6 x 0.1 x 0.2 cm. Ulceration was dressed with Allyn, Betadine paint and Band-Aid. Patient was instructed to change her dressing daily and to continue to wear comfortable wide shoes. She is also educated to continue strict [place] control. Which she was understanding of. Follow-up in 1 week. (2) Type 2 diabetes mellitus with foot ulcer: CODE(S): E11.621 - Type 2 diabetes mellitus with foot ulcer; L97.509 - Non-pressure chronic ulcer of other part of unspecified foot with unspecified severity QUALIFIERS: Diabetes mellitus nursing home insulin use: with nursing home use Qualified Code(s): E11.621 - Type 2 diabetes mellitus with foot ulcer; L97.509 - Non-pressure chronic ulcer of other part of unspecified foot with unspecified severity; Z79.4 - penitentiary (current) use of insulin (3) Fracture of left foot affected by diabetic neuropathy: CODE(S): S92.902A - Unspecified fracture of left foot, initial encounter for closed fracture; E11.40 - Type 2 diabetes mellitus with diabetic neuropathy, unspecified QUALIFIERS: Encounter type: initial encounter Fracture type: closed Qualified Code(s): S92.902A - Unspecified fracture of left foot, initial encounter for closed fracture; E11.40 - Type 2 diabetes mellitus with diabetic neuropathy, unspecified PLAN: After reviewing the patient's x-rays there is no evidence of gross fracture that can be seen. Patient's ecchymosis is better at this time. She is continue to wear comfortable motion control shoe gear and to continue to wear shoe gear while in the house and not walk barefoot. She was understanding of this.
== END 2023-08-27 23:59 | disposition home or self-care (01) ==
LOC: WC 13:00
PROVIDERS: PCP Student in an Organized Health Care Education/Training Program; Referring Provider Student in an Organized Health Care Education/Training Program; Visit Provider Podiatrist Foot & Ankle Surgery
DX: E11.621 Type 2 diabetes mellitus with foot ulcer (principal); L97.512 Non-pressure chronic ulcer of other part of right foot with fat layer exposed; E11.42 Type 2 diabetes mellitus with diabetic polyneuropathy; R11.2 Nausea with vomiting, unspecified
CPT/HCPCS: 11042; 73630

== ENCOUNTER 2023-08-19 19:55 | Inpatient (IN) | payer OTHER, SELFPAY ==
[2023-08-19] VITALS (10 sets, daily range): BP systolic 116–144; BP diastolic 66–81; PULSE 102–117; RESP 17–23; TEMP 36.3–37.1; O2SAT 95–100; BMI 40.9
--- NOTE | 2023-08-19 18:13 | PCM.HP.STD ---
HPI - General General Date of Admission: 08/19/23 Date of Service: 08/19/23 Chief Complaint: Nausea/vomiting/hyperglycemia HPI Narrative KORI SHEPHERD, is a 53 F who presented to the emergency department at [facility] complaining of abdominal pain, nausea, and vomiting that started yesterday. The patient is a type II diabetic but has had 7 bouts of DKA. She was most recently admitted here at the end of June. She has been started on an insulin pump since that point in time. She stated yesterday the insulin pump started beeping and she change the cartridge and that worked for about an hour however then started beeping again so she just took the whole thing off and has not really taken any insulin since. She did not call her primary special services coordinator today as she reported that she is not in the office. It does not sound like she has any backup insulin in the case that her pump is malfunctioning. She states she does not know her primary special services coordinator phone number and was not able to call the office either. Since she has not had the insulin pump on she has had abdominal pain nausea vomiting. It slowly worsened so she presented to the outside facility today. Her vital signs on arrival are unremarkable. Her CBC appears to be hemoconcentrated. Chemistry panel showed a serum sodium of 128 with a blood sugar of 700 and therefore this is consistent with pseudohyponatremia. An elevated potassium of 5.3, and elevated BUN and serum creatinine at 68 and 2.82 respectively. She had large acetone and an anion gap of 34 with a venous pH of 7.19. She was given aggressive IV fluids and started on insulin drip and transfer was requested. [facility] Medical History Acute necrosis of pancreas Alcohol use Allergies Anemia Anxiety Arthritis Atrial fibrillation Back problem Bipolar disorder with moderate depression Chronic diastolic (congestive) heart failure COVID Depression Diabetes mellitus with microalbuminuria, with long-term current use of insulin Diabetic foot ulcer associated with type 2 diabetes mellitus Diabetic neuropathy Dietary restriction Dilated bile duct Dyslipidemia Excessive bleeding Gastritis Gastroparesis due to secondary diabetes GERD (gastroesophageal reflux disease) Hallux valgus History of cardiac murmur History of edema History of gastroscopy History of renal disease HTN (hypertension) Hyperlipidemia Hypersomnia Insulin dependent diabetes mellitus Leg cramps Liver disease Low back pain Lumbar degenerative disc disease Lumbar facet arthropathy Migraine Nasal lesion Neck mass Non-alcoholic cirrhosis LNAA (obstructive sleep apnea) Palpitations Pancreatitis Peripheral edema Pleural effusion Shortness of breath on exertion Sleep apnea Thyromegaly Tubular adenoma of colon Urinary retention Vitamin deficiency Wears glasses Wears partial dentures Home Medications aspirin 81 mg tablet,delayed release 81 mg PO DAILY heart health 07/11/20 [History Last Taken 03/12/22] metoprolol tartrate 25 mg tablet 25 mg PO DAILY blood pressure 07/11/20 [History Last Taken 03/12/22] multivitamin (Daily Multi-Vitamin tablet) 1 tab PO DAILY vitamin 07/11/20 [History Last Taken 03/12/22] trazodone 100 mg tablet 200 mg PO QHS sleep 03/12/22 [History Last Taken 03/11/22] ondansetron 4 mg disintegrating tablet 4 mg PO Q8H PRN nausea and vomiting #90 tabs 07/24/22 [Rx Last Taken Unknown] acetaminophen 500 mg tablet 1,000 mg PO BID pain 08/03/22 [History Last Taken Unknown] magnesium oxide 400 mg PO DAILY suppliment 08/03/22 [History Last Taken Unknown] pantoprazole 40 mg tablet,delayed release 40 mg PO DAILY gerd 08/03/22 [History Last Taken Unknown] hydroxyzine HCl 50 mg tablet 50 mg PO Q8 PRN anxiety 09/07/22 [History Last Taken Unknown] linaclotide 290 mcg capsule (Linzess) 290 mcg PO DAILY #90 caps 03/19/23 [Rx Last Taken Unknown] ammonium lactate 12 % lotion 1 applic topical BID PRN PRN itchy skin 07/10/23 [History Last Taken Unknown] nitroglycerin 0.4 mg sublingual tablet 0.4 mg sublingual Q5M angina 07/10/23 [History Last Taken Unknown] nystatin 100,000 unit/gram topical powder 1 applic topical BID PRN yeast 07/10/23 [History Last Taken Unknown] rimegepant 75 mg disintegrating tablet 75 mg PO QODAY migraine 07/10/23 [History Last Taken Unknown] metaxalone 400 mg tablet 400 mg PO TID #1 TAB 07/11/23 [Rx Last Taken Unknown] carvedilol 12.5 mg tablet (Coreg) 12.5 mg PO BID 07/31/23 [History Last Taken Unknown] diclofenac sodium 75 mg tablet,delayed release 75 mg PO BID PRN pain 07/31/23 [History Last Taken Unknown] docusate sodium 100 mg tablet 100 mg PO TID PRN constipation 07/31/23 [History Last Taken Unknown] escitalopram oxalate 10 mg tablet 10 mg PO DAILY 07/31/23 [History Last Taken Unknown] fluticasone 232 mcg-salmeterol 14 mcg/actuation breath activated powdr 1 inh inhalation BID 07/31/23 [History Last Taken Unknown] insulin regular human 100 unit/mL injection solution (Humulin R Regular U-100 Insulin) 40 unit subcut TIDWMEAL 07/31/23 [History Last Taken Unknown] pregabalin 100 mg capsule (Lyrica) 100 mg PO BID 08/07/23 [History Last Taken Unknown] Allergy/AdvReac Type Severity Reaction Status Date / Time lactase [From Dairy Aid] Allergy Severe diarrhea Verified 08/07/23 09:05 codeine Allergy Intermediate mental Verified 08/07/23 09:05 status diphenhydramine Allergy Intermediate mental Verified 08/07/23 09:05 [From Benadryl Allergy] status quetiapine [From Seroquel] Allergy Intermediate about Verified 08/07/23 09:05 killed me - went into DKA morphine Allergy Other Verified 08/07/23 09:05 Family History Mother Arthritis Depression Diabetes Father Arthritis Cancer Melanoma Diabetes Kidney disease Brother Arthritis Hypoglycemia Grandfather Myocardial infarction Grandmother Diabetes Surgical History H/O cardiac catheterization H/O gastric bypass History of esophagogastroduodenoscopy (EGD) History of hysterectomy Hx of colonoscopy Social History Smoking Status: Never smoker alcohol intake: current diet: diabetic and lactose free ROS Constitutional Constitutional: Reports weakness; Denies anorexia, change in weight, chills, fatigue, fever(s), malaise, night sweats or other Eyes Eyes: Denies blurry vision, change in eye color, change in vision, discharge from eye(s), double vision, erythema, eye pain, loss of vision or other ENT HEENT: Denies abnormal hearing, dysphagia, ear pain, epistaxis, headache(s), hearing loss, nasal congestion, nasal discharge, post nasal drip, sinus pressure, sore throat or other Cardiovascular Cardiovascular: Denies chest pain, claudication, dyspnea on exertion, edema, lightheadedness, orthopnea, palpitations, paroxysmal nocturnal dyspnea, rapid heart rate, syncope or other Respiratory/Chest Respiratory/Chest: Denies cough, dyspnea, excessive phlegm production, hemoptysis, productive cough, shortness of breath at rest, shortness of breath with exertion, wheezing or other Gastrointestinal Gastrointestinal: Reports abdominal pain, nausea and vomiting; Denies coffee ground emesis, constipation, diarrhea, dyspepsia, hematemesis, hematochezia, loose stools, melena or other Genitourinary Genitourinary: Denies burning urination, difficulty urinating, dysuria, hematuria, nocturia, urinary frequency, urinary hesitancy, urinary incontinence or urinary urgency Musculoskeletal Musculoskeletal: Denies arthralgias, back pain, joint pain, joint stiffness, joint swelling, myalgias, neck pain or other Neurologic Neurologic: Reports numbness, paresthesias and tingling Psychiatric Psychiatric: Reports anxiety; Denies depression, homicidal ideation, suicidal ideation or other Endocrine Endocrinology: Reports polydipsia and polyuria; Denies change in body appearance, cold intolerance, excessive sweating, heat intolerance or other Hematologic/Lymphatic Hematologic/Lymphatic: Denies anemia, easy bleeding, easy bruising, lymphadenopathy or other Allergic/Immunologic Allergic/Immunologic: Denies rhinitis, hives, eczemia, asthma or other Physical Exam Const alert and oriented x3 Constitutional Narrative: Morbidly obese, ill-appearing, white female, no signs of discomfort at this time, appears older than stated age General Appearance: cooperative HEENT normocephalic, head/scalp atraumatic, hearing grossly normal bilaterally and oropharynx normal; Negative for moist oral mucous membranes HEENT Narrative: Mucous membranes are considerably dry, Mallampati is 3, no thrush Eyes PERRL, EOMs intact bilaterally and conjunctivae normal Eyes Narrative: No scleral icterus Neck no lymphadenopathy and supple Neck Narrative: Neck veins are flat, trachea is midline, no thyroid enlargement Resp normal respiratory effort, no retractions, no use of accessory muscles and clear to auscultation bilaterally Auscultation: Negative for rales, rhonchi or wheezes Cardio regular rhythm, S1 normal heart sound, S2 normal heart sound, no murmurs, no rub, no gallops and no clicks Cardio Narrative: Tachycardia GI normal to inspection, nondistended, normoactive bowel sounds and soft to palpation; Negative for non-tender GI Narrative: Diffuse tenderness with even light palpation, multiple areas of ecchymosis due to insulin pump usage Extremity no clubbing, cyanosis or edema Extremity Narrative: Pedal pulses are 2+ Skin no rashes or lesions noted, No skin turgor normal, no jaundice, no petechiae and no mottling Skin Narrative: Wound on right toe due to callus and cracked skin Neuro oriented x3, CN's II-XII intact bilaterally, moves all extremities and no focal motor deficits Neuro Narrative: Bilateral lower extremity peripheral neuropathy noted Speech: speech normal Psych Psych Narrative: Affect is flat Results Lab / Micro Data 08/19/23 18:15 Assessment & Plan Assessment/Plan (1) DKA, type 2: (2) Pseudohyponatremia: (3) High anion gap metabolic acidosis: (4) MITCHELL (acute kidney injury): PLAN: Plan DKA in a type II diabetic -Patient is currently supposed to be on insulin pump however it was malfunctioning and she remove the pump without any additional supplemental insulin -Patient did not contact her special services coordinator and has been without insulin for about 24 hours now -Patient did not bring her pump in and has nobody to bring it in so she will require subcu insulin at discharge -I highly question her understanding of her disease -Insulin drip and fluids per protocol -We will obtain stat lab as it been sometime since she had some -Consult dietitian for diabetic education -N.p.o. except for meds and ice chips Anion gap metabolic acidosis -Secondary to above -Should resolve with resolution of DKA MITCHELL on CKD stage IIIb secondary to acute dehydration -Baseline serum creatinine appears to run between 1.7 and 2 next-serum creatinine on presentation at outside facility was 2.82 -IV fluids per DKA protocol -should resolve with hydration -Avoid nephrotoxins as able Abdominal pain/nausea/vomiting -Anticipate due to DKA as it did not start until after she had stopped her insulin for some time -Continue to monitor -As needed antiemetics -IV fluids Wound on right great toe -Consult wound care -Continue to follow-up with podiatry Diabetic neuropathy -Hold Lyrica while renal function is elevated -Reinitiate at renally appropriate dose once creatinine improves to baseline GERD -Continue PPI Hypertension -Continue home carvedilol History of migraine -Continue home migraine medication every other day Insomnia -Hold home trazodone LANA -Patient noncompliant with CPAP -As needed oxygen Hyperlipidemia -Continue home atorvastatin Chronic anemia -Iron supplementation gives her intractable constipation -Patient follows with hematology and they are in the process of getting IV iron precertified for her -CBC is pending to check current hemoglobin -No signs of acute GI bleeding Medical noncompliance -Patient overall has a very poor understanding or disinterest in her disease process -We will attempt at further educational points Morbid obesity -Recommend weight loss next-complicates treatment, prognosis, outcomes -BMI 40.9 DVT prophylaxis -Subcu heparin 3 times daily CODE STATUS Full code Charges/Coding Visit Charges Inpatient E&M: 37903 Init Hosp L2
[2023-08-19 18:24] LABS: Bedside Glucose > 500 mg/dL (74-106)
[2023-08-19 19:03] LABS: Glucose 947 mg/dL (74-106)
[2023-08-19 20:36] LABS: Absolute Lymphocyte Count 2.32 X10^3/uL (0.83-4.51); Absolute Neutrophil Count 11.4 X10^3/uL (2.0-7.7); Basophil# 0.05 X10^3/uL; Basophil% 0.4 % (0-1); Hematocrit 32.9 % (37-47); Hemoglobin 10.5 g/dL (12.0-15.0); Lymphocyte # 2.32 X10^3/ul (0.83-4.51); Lymphocyte % 16.4 % (19-41); Mean Corp Hgb Conc 31.9 g/dL (32-36); Mean Corpuscular Hgb 28.2 pg (27.0-32.0); Mean Corpuscular Volume 88.4 fL (81-99); Mean Platelet Vol. 11.4 fl (6.2-12.0); Monocyte# 0.32 X10^3/uL; Monocyte% 2.3 % (0-10); NRBC Flagged by Analyzer 0 % (0-5); Neutrophil # 11.35 X10^3/uL (2.7-7.7); Platelet Count 287 K/mm3 (150-450); RBC Distribution Width CV 13.5 % (11.6-14.6); RBC Distribution Width SD 43.9 fl (35.1-43.9); Red Blood Count 3.72 M/mm3 (4.2-5.4); White Blood Count 14.2 K/mm3 (4.4-11.0)
[2023-08-19 21:07] LABS: Anion Gap 26 (5-15); BUN 65 mg/dL (7-18); BUN/Creat Ratio 22.3 RATIO (10-20); Calcium,Total 9.1 mg/dL (8.5-10.1); Chloride 93 mmol/L (98-107); Creatinine, Serum 2.91 mg/dL (0.55-1.02); EST Glomerular Filtration Rate 18 mL/min (>60); Est Glom Filt Rate - Afr Amer 22 mL/min (>60); Estimated Creatinine Clearance 24.45 ml/min; Glucose 495 mg/dL (74-106); Magnesium 3.1 mg/dL (1.6-2.6); Potassium 3.5 mmol/L (3.5-5.1); Sodium Level 139 mmol/L (136-145)
[2023-08-19 21:28] LABS: Bedside Glucose 491 mg/dL (74-106)
[2023-08-19] MEDS: 0.9% Normal Saline (1000mL) 1,000 ML 250 ML IV (21:56)
[2023-08-19] MEDS: Acetaminophen 500 MG Tablet 1000 MG PO (22:14)
[2023-08-19] MEDS: Metaxalone 800 MG Tablet 400 MG PO (22:14)
--- NOTE | 2023-08-19 22:30 | NURSING ---
Patient refused lovenox shot stating I don't want it. This RN explained to patient importance of medication and offered patient use SCD's instead. Patient adamantly refused that as well stating I don't want those.
[2023-08-19] MEDS: Insulin Lispro 100 UNIT in 0.9% Normal Saline (100mL Bag) 99 ML 12.9 UNIT CONT INF (23:05)
[2023-08-19] MEDS: Ondansetron 4 MG/2 ML Vial IV (23:21)
[2023-08-19 23:51] LABS: Bedside Glucose 302 mg/dL (74-106)
[2023-08-19 23:51] LABS: Bedside Glucose 319 mg/dL (74-106)
[2023-08-20] VITALS (19 sets, daily range): BP systolic 108–152; BP diastolic 51–86; PULSE 69–106; RESP 12–22; TEMP 36.1–36.9; O2SAT 92–100
[2023-08-20 00:34] LABS: Bedside Glucose 363 mg/dL (74-106)
[2023-08-20 01:23] LABS: Bedside Glucose 320 mg/dL (74-106)
[2023-08-20] MEDS: 0.9% Normal Saline (1000mL) 1,000 ML 250 ML IV (02:09)
[2023-08-20 02:27] LABS: Bedside Glucose 257 mg/dL (74-106)
[2023-08-20 03:21] LABS: Bedside Glucose 210 mg/dL (74-106)
[2023-08-20 04:19] LABS: Bedside Glucose 161 mg/dL (74-106)
[2023-08-20 04:27] LABS: Absolute Lymphocyte Count 2.66 X10^3/uL (0.83-4.51); Absolute Neutrophil Count 8.7 X10^3/uL (2.0-7.7); Basophil# 0.02 X10^3/uL; Basophil% 0.2 % (0-1); Hematocrit 28.9 % (37-47); Hemoglobin 9.4 g/dL (12.0-15.0); Lymphocyte # 2.66 X10^3/ul (0.83-4.51); Lymphocyte % 21.7 % (19-41); Mean Corp Hgb Conc 32.5 g/dL (32-36); Mean Platelet Vol. 10.9 fl (6.2-12.0); Monocyte# 0.74 X10^3/uL; NRBC Flagged by Analyzer 0 % (0-5); Neutrophil # 8.73 X10^3/uL (2.7-7.7); Neutrophil % 71.4 % (47-70); Platelet Count 244 K/mm3 (150-450); RBC Distribution Width CV 13.6 % (11.6-14.6); RBC Distribution Width SD 42.4 fl (35.1-43.9); Red Blood Count 3.36 M/mm3 (4.2-5.4); White Blood Count 12.2 K/mm3 (4.4-11.0)
[2023-08-20] MEDS: 0.9% Saline Lock 10 ML Syringe IV ×3 (04:29→19:06)
[2023-08-20] MEDS: KCL 20MEQ in D5.45NS 20 MEQ/1,000 ML IV.SOLN. 150 MEQ IV (04:29)
[2023-08-20 04:56] LABS: Magnesium 2.9 mg/dL (1.6-2.6)
[2023-08-20 05:20] LABS: Bedside Glucose 219 mg/dL (74-106)
[2023-08-20 05:52] LABS: Anion Gap 13 (5-15); BUN 54 mg/dL (7-18); Calcium,Total 8.8 mg/dL (8.5-10.1); Chloride 104 mmol/L (98-107); Creatinine, Serum 2.57 mg/dL (0.55-1.02); EST Glomerular Filtration Rate 21 mL/min (>60); Est Glom Filt Rate - Afr Amer 25 mL/min (>60); Estimated Creatinine Clearance 27.69 ml/min; Glucose 211 mg/dL (74-106); Potassium 3.8 mmol/L (3.5-5.1); Sodium Level 143 mmol/L (136-145)
[2023-08-20] MEDS: Metaxalone 800 MG Tablet 400 MG PO ×2 (06:10→22:37)
[2023-08-20 06:40] LABS: Bedside Glucose 246 mg/dL (74-106)
--- NOTE | 2023-08-20 07:06 | PCM.PN.HOSP ---
Reason for Visit Reason for Visit: Diagnoses Type 2 diabetes mellitus with ketoacidosis without coma (08/19/23) Other acidosis (08/19/23) Acute kidney failure, unspecified (08/19/23) Other specified abnormal findings of blood chemistry (08/19/23) Subjective Subjective Having dry heaves today. Tells me that she never received the insulin pump (though told others that it beeped and stopped working). States that she was not taking her insulin. Objective Data Objective Data Vital Signs: Vital Signs Temp Pulse Resp BP Pulse Ox O2 Del Method O2 Flow Rate 36.2 C L 96 18 138/78 H 97 Nasal Cannula 2 08/20/23 07:00 08/20/23 07:00 08/20/23 07:00 08/20/23 07:00 08/20/23 07:00 08/20/23 07:00 08/20/23 07:00 Oxygen Flow Rate (L/min) 2 Oxygen Delivery Method Nasal Cannula Weight: 114.8 kg Body Mass Index (BMI) 40.9 Intake & Output: Intake and Output for Last 24 Hours 08/18/23 08/19/23 08/20/23 23:59 23:59 23:59 Intake Total 100 / 131.83 2061.33 / 2061.33 Output Total 1230 / 1230 Balance 100 / 131.83 831.33 / 831.33 Lab / Micro Data 08/20/23 04:20 08/20/23 08:10 Labs: Laboratory Results - last 24 hr 08/19/23 18:06: POC Glucose > 500 H* 08/19/23 18:15: Glucose 947 H* 08/19/23 20:02: WBC 14.2 H, RBC 3.72 L, Hgb 10.5 L, Hct 32.9 L, MCV 88.4, MCH 28.2, MCHC 31.9 L, RDW Std Deviation 43.9, RDW Coeff of Ilene 13.5, Plt Count 287, MPV 11.4, Immature Gran % (Auto) 0.900, Neut % (Auto) 80.0 H, Lymph % (Auto) 16.4 L, [place] % (Auto) 2.3, Eos % (Auto) 0.0, Baso % (Auto) 0.4, Absolute Neuts (auto) 11.4 H, Absolute Lymphs (auto) 2.32, Nucleated RBC % 0, Sodium 139, Potassium 3.5, Chloride 93 L, Carbon Dioxide 20.0 L, Anion Gap 26 H, BUN 65 H, Creatinine 2.91 H, Estim Creat Clear Calc 24.45, Est GFR (MDRD) Af Amer 22 L, Est GFR (MDRD) Non-Af 18 L, BUN/Creatinine Ratio 22.3 H, Glucose 495 H*, Calcium 9.1, Magnesium 3.1 H 08/19/23 21:09: POC Glucose 491 H* 08/19/23 22:00: POC Glucose 319 H 08/19/23 23:12: POC Glucose 302 H 08/20/23 00:13: POC Glucose 363 H 08/20/23 01:02: POC Glucose 320 H 08/20/23 02:05: POC Glucose 257 H 08/20/23 03:02: POC Glucose 210 H 08/20/23 03:59: POC Glucose 161 H 08/20/23 04:20: WBC 12.2 H, RBC 3.36 L, Hgb 9.4 L, Hct 28.9 L, MCV 86.0, MCH 28.0, MCHC 32.5, RDW Std Deviation 42.4, RDW Coeff of Ilene 13.6, Plt Count 244, MPV 10.9, Immature Gran % (Auto) 0.700, Neut % (Auto) 71.4 H, Lymph % (Auto) 21.7, [place] % (Auto) 6.0, Eos % (Auto) 0.0, Baso % (Auto) 0.2, Absolute Neuts (auto) 8.7 H, Absolute Lymphs (auto) 2.66, Nucleated RBC % 0, Sodium 143, Potassium 3.8, Chloride 104, Carbon Dioxide 26.0, Anion Gap 13, BUN 54 H, Creatinine 2.57 H, Estim Creat Clear Calc 27.69, Est GFR (MDRD) Af Amer 25 L, Est GFR (MDRD) Non-Af 21 L, BUN/Creatinine Ratio 21.0 H, Glucose 211 H, Calcium 8.8, Phosphorus 3.0, Magnesium 2.9 H 08/20/23 05:02: POC Glucose 219 H 08/20/23 06:13: POC Glucose 246 H Physical Exam Const Constitutional Narrative: pale. retching. HEENT head/scalp atraumatic and moist oral mucous membranes Resp normal respiratory effort, no retractions, no use of accessory muscles and clear to auscultation bilaterally Cardio regular rate, regular rhythm, S1 normal heart sound and S2 normal heart sound GI normal to inspection, nondistended, normoactive bowel sounds, soft to palpation, non-tender and non-distended Neuro Sensorium / Orientation: awake Assessment & Plan Assessment/Plan (1) DKA, type 2: QUALIFIERS: Diabetes mellitus complication detail: without coma Qualified Code(s): E11.10 - Type 2 diabetes mellitus with ketoacidosis without coma PLAN: 2/2 non-compliance. Pt was not taking insulin. It is unclear if she received an insulin pump or not. Nonetheless. Transition to insulin glargine 40 units as pt actively retching. monitor sugars. Cover with sliding scale. Once able to take oral, add prandial insulin follow up with endocrinology for insulin pump. Pt has limited insight into her disease which complicates long-term care and mgmt. (2) Pseudohyponatremia: PLAN: 2/2 to elevated glucose. resolved with improvment of glucose. no additional work up. (3) MITCHELL (acute kidney injury): PLAN: Baseline CXD IIIb Improving with IVf Likely due to prerenal azotemia. PLAN: Plan Wound on right great toe: -Consult wound care-Continue to follow-up with podiatry. Xray negative. Chronic conditions: Diabetic neuropathy-Hold Lyrica while renal function is elevated-Reinitiate at renally appropriate dose once creatinine improves to baseline GERD-Continue PPI Hypertension-Continue home carvedilol History of migraine-Continue home migraine medication every other day Insomnia-Hold home trazodone LANA-Patient noncompliant with CPAP-As needed oxygen Hyperlipidemia-Continue home atorvastatin Chronic anemia-Iron supplementation gives her intractable constipation-Patient follows with hematology and they are in the process of getting IV iron precertified for her-CBC is pending to check current hemoglobin-No signs of acute GI bleeding Morbid obesity-Recommend weight loss next-complicates treatment, prognosis, outcomes-BMI 40.9 DVT prophylaxis-Subcu heparin 3 times daily CODE STATUS Full code Transfer to [facility]. Charges/Coding Visit Charges Inpatient E&M: 55435 Subs Hosp L2
[2023-08-20] MEDS: Budesonide Respules 0.5 MG/2 ML AMPUL.NEB. INHALATION ×2 (07:11→19:19)
[2023-08-20] MEDS: Albuterol 2.5 MG/3 ML VIAL.NEB. INHALATION ×3 (07:11→19:19)
[2023-08-20 07:17] LABS: Bedside Glucose 206 mg/dL (74-106)
[2023-08-20] MEDS: Potassium Chloride 10mEq/100mL 10 MEQ/100 ML IV.SOLN. 100 MEQ IV BOLUS ×4 (07:44→10:47)
[2023-08-20] MEDS: Ondansetron 4 MG/2 ML Vial IV ×2 (07:46→19:06)
[2023-08-20 08:27] LABS: Bedside Glucose 160 mg/dL (74-106)
[2023-08-20 08:36] LABS: Anion Gap 9 (5-15); BUN 50 mg/dL (7-18); Calcium,Total 9.1 mg/dL (8.5-10.1); Chloride 106 mmol/L (98-107); EST Glomerular Filtration Rate 22 mL/min (>60); Est Glom Filt Rate - Afr Amer 26 mL/min (>60); Estimated Creatinine Clearance 28.47 ml/min; Glucose 186 mg/dL (74-106); Potassium 4.2 mmol/L (3.5-5.1); Sodium Level 146 mmol/L (136-145)
[2023-08-20] MEDS: Carvedilol 12.5 MG Tablet PO ×2 (08:39→17:23)
[2023-08-20] MEDS: Pantoprazole Sodium 40 MG Tablet PO (08:40)
[2023-08-20] MEDS: Escitalopram Oxalate 10 MG Tablet PO (08:40)
--- NOTE | 2023-08-20 09:15 | CASEMGMT ---
RN CM: This RN CM attempted to meet with pt at bedside for dc planning assessment. Pt awoken and opened her eyes and was agreeable to participating in assessment but was not able to answer questions completely and was falling to sleep repeatedly. Will reattempt assessment later today. Balta Her RN CM
[2023-08-20 09:24] LABS: Bedside Glucose 123 mg/dL (74-106)
[2023-08-20 10:21] LABS: Bedside Glucose 113 mg/dL (74-106)
[2023-08-20] MEDS: 0.9% Normal Saline (1000mL) 1,000 ML 125 ML IV ×2 (11:27→19:06)
[2023-08-20] MEDS: Insulin Glargine-YFGN 100 UNIT/ML Pen 40 UNIT SC (11:43)
[2023-08-20 11:51] LABS: Bedside Glucose 111 mg/dL (74-106)
--- NOTE | 2023-08-20 13:55 | WOUNDNOTE ---
wound photo: right great toe - medial
--- NOTE | 2023-08-20 16:00 | CASEMGMT ---
RACHEL MATHEW Discharge Planning Assessment: Face to Face with patient for initial transition planning/care coordination assessment. RACHEL MATHEW introduced self and role at [facility], pt voices understanding and is agreeable to participating in the assessment. Pt is alert, sitting up in the chair. Pt states she still feels sleepy but not as much as this morning. Care providers, pharmacy, and demographics verified. Admitting dx: DKA PCP: Jordana Specialists: Cherie (hematology), David (podiatry/wound center), and Dr. Murphy (endocrinology) [facility]erred [facility]acy: [facility] Insurance: [employer] Prescription Benefit: Yes, and pt states she is able to afford her co-pays Living Will/HPOA: none LNOK: friend Linda Living Arrangements: Pt states she lives alone and is independent with all ADLs including self care and household tasks. 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 Transportation: Pt drives and her friend Linda can assist if needed DME: Pt states she has a CGM and has all the needed supplies. Pt states she uses a flex pen of UR 500/500 insulin 35units three times day plus a sliding scale if her CGM alarms that her glucose is elevated. When the CGM alarms, pt states she double checks her glucose with a regular meter for which she has all needed supplies. Pt states she has a supply of pen needles also. HHC/SNF: Pt denies any previous providers. Pt's Plan/Goal: Return home with the support of her friend Linda and follow-up with Dr. Camacho. Pt states she was to receive an insulin pump but has not started this yet. Her next appointment with Dr. Murphy is tomorrow 08/21 at 0900. Pt declined for this RACHEL MATHEW to reschedule this appointment for her and states she will reschedule this herself. Pt states she also had an appointment with Dr. Crespo for 08/21 at 1100. Pt denies any recent dietary changes that may have prompted her DKA and states she is not sure what happened to result in her hospitalization. Will continue to monitor and assist with discharge planning needs as they are determined. Balta Her RN CM
[2023-08-20 17:11] LABS: Bedside Glucose 276 mg/dL (74-106)
[2023-08-20] MEDS: Insulin Lispro 100 UNIT/ML INSULN.PEN SC ×2 (17:22→22:36)
[2023-08-20] MEDS: Acetaminophen 500 MG Tablet 1000 MG PO ×2 (17:34→22:44)
[2023-08-20] MEDS: traZODone 100 MG Tablet 200 MG PO (22:36)
[2023-08-20] MEDS: Pregabalin 50 MG Capsule 100 MG PO (22:37)
[2023-08-20 23:03] LABS: Bedside Glucose 254 mg/dL (74-106)
[2023-08-21 03:14] VITALS: BP 106/68; PULSE 70; RESP 18; TEMP 36.7; O2SAT 95
[2023-08-21] MEDS: 0.9% Normal Saline (1000mL) 1,000 ML 125 ML IV ×2 (03:14→11:30)
[2023-08-21] MEDS: Metaxalone 800 MG Tablet 400 MG PO ×2 (05:29→14:55)
[2023-08-21] MEDS: Ondansetron 4 MG/2 ML Vial IV (05:32)
[2023-08-21 05:49] LABS: Bedside Glucose 218 mg/dL (74-106)
[2023-08-21 06:00] VITALS: BMI 36.0
[2023-08-21] MEDS: Insulin Lispro 100 UNIT/ML INSULN.PEN SC ×2 (06:16→11:29)
[2023-08-21 06:49] LABS: Absolute Lymphocyte Count 2.57 X10^3/uL (0.83-4.51); Absolute Neutrophil Count 6.6 X10^3/uL (2.0-7.7); Basophil# 0.03 X10^3/uL; Basophil% 0.3 % (0-1); Eosinophil# 0.01 X10^3/uL; Eosinophils% 0.1 % (0-5); Hematocrit 28.3 % (37-47); Hemoglobin 8.9 g/dL (12.0-15.0); Lymphocyte # 2.57 X10^3/ul (0.83-4.51); Lymphocyte % 26.8 % (19-41); Mean Corp Hgb Conc 31.4 g/dL (32-36); Mean Corpuscular Hgb 28.2 pg (27.0-32.0); Mean Corpuscular Volume 89.6 fL (81-99); Mean Platelet Vol. 10.6 fl (6.2-12.0); Monocyte# 0.38 X10^3/uL; NRBC Flagged by Analyzer 0.2 % (0-5); Neutrophil # 6.56 X10^3/uL (2.7-7.7); Neutrophil % 68.4 % (47-70); Platelet Count 200 K/mm3 (150-450); RBC Distribution Width CV 14.6 % (11.6-14.6); RBC Distribution Width SD 48.5 fl (35.1-43.9); Red Blood Count 3.16 M/mm3 (4.2-5.4); White Blood Count 9.6 K/mm3 (4.4-11.0)
[2023-08-21 07:22] LABS: Anion Gap 5 (5-15); BUN 30 mg/dL (7-18); BUN/Creat Ratio 17.5 RATIO (10-20); Calcium,Total 8.4 mg/dL (8.5-10.1); Chloride 108 mmol/L (98-107); Creatinine, Serum 1.71 mg/dL (0.55-1.02); EST Glomerular Filtration Rate 33 mL/min (>60); Est Glom Filt Rate - Afr Amer 40 mL/min (>60); Estimated Creatinine Clearance 41.62 ml/min; Glucose 253 mg/dL (74-106); Potassium 3.9 mmol/L (3.5-5.1); Sodium Level 141 mmol/L (136-145)
[2023-08-21 07:32] VITALS: O2SAT 95
--- NOTE | 2023-08-21 07:59 | PN.HOSP_ITS ---
Reason for Visit Reason for Visit: Diagnoses Type 2 diabetes mellitus with ketoacidosis without coma (08/19/23) Other acidosis (08/19/23) Acute kidney failure, unspecified (08/19/23) Other specified abnormal findings of blood chemistry (08/19/23) Subjective Subjective patient claims she is taking her insulin despite her presenting with DKA, yet again. Objective Data Objective Data Vital Signs: Vital Signs Temp Pulse Resp BP Pulse Ox O2 Del Method O2 Flow Rate 36.7 C 70 18 106/68 95 Room Air 2 08/21/23 03:14 08/21/23 03:14 08/21/23 03:14 08/21/23 03:14 08/21/23 07:32 08/21/23 07:32 08/21/23 03:14 Oxygen Flow Rate (L/min) 2 Oxygen Delivery Method Room Air Weight: 114.1 kg Body Mass Index (BMI) 36.0 Intake & Output: Intake and Output for Last 24 Hours 08/19/23 08/20/23 08/21/23 23:59 23:59 23:59 Intake Total 100 / 131.83 4554.03 / 4554.03 1000 / 1000 Output Total 2029 Balance 100 / 131.83 2524.03 / 2524.03 1000 / 1000 Lab / Micro Data 08/21/23 06:22 08/21/23 06:22 Labs: Laboratory Results - last 24 hr 08/20/23 08:08: POC Glucose 160 H 08/20/23 08:10: Sodium 146 H, Potassium 4.2, Chloride 106, Carbon Dioxide 31.0, Anion Gap 9, BUN 50 H, Creatinine 2.50 H, Estim Creat Clear Calc 28.47, Est GFR (MDRD) Af Amer 26 L, Est GFR (MDRD) Non-Af 22 L, BUN/Creatinine Ratio 20.0, Glucose 186 H, Calcium 9.1 08/20/23 09:06: POC Glucose 123 H 08/20/23 10:03: POC Glucose 113 H 08/20/23 11:32: POC Glucose 111 H 08/20/23 16:54: POC Glucose 276 H 08/20/23 22:35: POC Glucose 254 H 08/21/23 05:25: POC Glucose 218 H 08/21/23 06:22: WBC 9.6, RBC 3.16 L, Hgb 8.9 L, Hct 28.3 L, MCV 89.6, MCH 28.2, MCHC 31.4 L, RDW Std Deviation 48.5 H, RDW Coeff of Ilene 14.6, Plt Count 200, MPV 10.6, Immature Gran % (Auto) 0.400, Neut % (Auto) 68.4, Lymph % (Auto) 26.8, [place] % (Auto) 4.0, Eos % (Auto) 0.1, Baso % (Auto) 0.3, Absolute Neuts (auto) 6.6, Absolute Lymphs (auto) 2.57, Nucleated RBC % 0.2, Sodium 141, Potassium 3.9, Chloride 108 H, Carbon Dioxide 28.0, Anion Gap 5, BUN 30 H, Creatinine 1.71 H, Estim Creat Clear Calc 41.62, Est GFR (MDRD) Af Amer 40 L, Est GFR (MDRD) Non-Af 33 L, BUN/Creatinine Ratio 17.5, Glucose 253 H, Calcium 8.4 L Physical Exam Const alert Constitutional Narrative: flat affect Neuro Sensorium / Orientation: awake and alert Assessment & Plan Assessment/Plan (1) DKA, type 2: QUALIFIERS: Diabetes mellitus complication detail: without coma Qualified Code(s): E11.10 - Type 2 diabetes mellitus with ketoacidosis without coma PLAN: Resolved 2/2 non-compliance. She states that she has not received her insulin pump and is waiting on insurance authorization for that. She insists that she is taking her insulin but if she is not she started taking a much smaller dose than what is prescribed. She states that she takes the U-500 only at home. We will discharge the patient with basal insulin as well as prandial insulin with meals. I am highly suspicious that the patient is not taking insulin at all. follow up with endocrinology for insulin pump. Pt has limited insight into her disease which complicates long-term care and mgmt. (2) Pseudohyponatremia: PLAN: 2/2 to elevated glucose. resolved with improvment of glucose. no additional work up. (3) MITCHELL (acute kidney injury): PLAN: Baseline CXD IIIb Improving with IVf Likely due to prerenal azotemia. PLAN: Plan Wound on right great toe: -Consult wound care-Continue to follow-up with podiatry. Xray negative. Chronic conditions: * Diabetic neuropathy-Hold Lyrica while renal function is elevated-Reinitiate at renally appropriate dose once creatinine improves to baseline * GERD-Continue PPI * Hypertension-Continue home carvedilol * History of migraine-Continue home migraine medication every other day * Insomnia-Hold home trazodone * LANA-Patient noncompliant with CPAP-As needed oxygen * Hyperlipidemia-Continue home atorvastatin * Chronic anemia-Iron supplementation gives her intractable constipation-Patient follows with hematology and they are in the process of getting IV iron precertified for her-CBC is pending to check current hemoglobin-No signs of acute GI bleeding * Morbid obesity-Recommend weight loss next-complicates treatment, prognosis, outcomes-BMI 40.9 DVT prophylaxis-Subcu heparin 3 times daily CODE STATUS Full code
[2023-08-21] MEDS: Pantoprazole Sodium 40 MG Tablet PO (09:08)
[2023-08-21] MEDS: Aspirin E.C. 81 MG Tablet PO (09:08)
[2023-08-21] MEDS: Carvedilol 12.5 MG Tablet PO (09:08)
[2023-08-21] MEDS: Escitalopram Oxalate 10 MG Tablet PO (09:08)
[2023-08-21] MEDS: Multivitamins,Therapeutic Tablet 1 TABLET PO (09:08)
[2023-08-21] MEDS: Pregabalin 50 MG Capsule 100 MG PO (09:10)
[2023-08-21] MEDS: Insulin Glargine-YFGN 100 UNIT/ML Pen 40 UNIT SC (09:11)
[2023-08-21] MEDS: Acetaminophen 500 MG Tablet 1000 MG PO (09:11)
[2023-08-21 09:14] VITALS: BP 127/70; PULSE 81; RESP 16; TEMP 36.9; O2SAT 94
[2023-08-21] MEDS: Budesonide Respules 0.5 MG/2 ML AMPUL.NEB. INHALATION (10:28)
[2023-08-21] MEDS: Albuterol 2.5 MG/3 ML VIAL.NEB. INHALATION (10:28)
[2023-08-21 10:47] VITALS: PULSE 77; RESP 20
[2023-08-21 11:44] LABS: Bedside Glucose 175 mg/dL (74-106)
--- NOTE | 2023-08-21 13:43 | PCM.DC.SUM ---
Providers Date of Admission: 08/19/23 Primary Care Physician: Dr. 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 She states that she has not received her insulin pump and is waiting on insurance authorization for that. She insists that she is taking her insulin but if she is not she started taking a much smaller dose than what is prescribed. She states that she takes the U-500 only at home. We will discharge the patient with basal insulin as well as prandial insulin with meals. I am highly suspicious that the patient is not taking insulin at all. follow up with endocrinology for insulin pump. Pt has limited insight into her disease which complicates long-term care and mgmt. At the [facility], urinalysis showed ketones greater than or equal to 160 500 glucose and blood in urine. This was performed on August 19 at 1:49 PM. (2) Pseudohyponatremia: Status: Acute Code(s): R79.89 - Other specified abnormal findings of blood chemistry Plan: 2/2 to elevated glucose. resolved with improvment of glucose. no additional work up. (3) MITCHELL (acute kidney injury): Status: Acute Code(s): N17.9 - Acute kidney failure, unspecified Plan: Baseline CXD IIIb Improving with IVf Likely due to prerenal azotemia. Plan Wound on right great toe: -Consult wound care-Continue to follow-up with podiatry. Xray negative. Chronic conditions: Diabetic neuropathy-Hold Lyrica while renal function is elevated-Reinitiate at renally appropriate dose once creatinine improves to baseline GERD-Continue PPI Hypertension-Continue home carvedilol History of migraine-Continue home migraine medication every other day Insomnia-Hold home trazodone LANA-Patient noncompliant with CPAP-As needed oxygen Hyperlipidemia-Continue home atorvastatin Chronic anemia-Iron supplementation gives her intractable constipation-Patient follows with hematology and they are in the process of getting IV iron precertified for her-CBC is pending to check current hemoglobin-No signs of acute GI bleeding Morbid obesity-Recommend weight loss next-complicates treatment, prognosis, outcomes-BMI 40.9 DVT prophylaxis-Subcu heparin 3 times daily CODE STATUS Full code Medications at Discharge Home Medications aspirin 81 mg tablet,delayed release 81 mg PO DAILY heart health 07/11/20 multivitamin (Daily Multi-Vitamin tablet) 1 tab PO DAILY vitamin 07/11/20 trazodone 100 mg tablet 200 mg PO QHS sleep 03/12/22 ondansetron 4 mg disintegrating tablet 4 mg PO Q8H PRN nausea and vomiting #90 tabs 07/24/22 acetaminophen 500 mg tablet 1,000 mg PO BID pain 08/03/22 magnesium oxide 400 mg PO DAILY suppliment 08/03/22 pantoprazole 40 mg tablet,delayed release 40 mg PO DAILY gerd 08/03/22 hydroxyzine HCl 50 mg tablet 50 mg PO Q8 PRN anxiety 09/07/22 linaclotide 290 mcg capsule (Linzess) 290 mcg PO DAILY chronic constipation #90 caps 03/19/23 ammonium lactate 12 % lotion 1 applic topical BID PRN PRN itchy skin 07/10/23 nitroglycerin 0.4 mg sublingual tablet 0.4 mg sublingual Q5M angina 07/10/23 nystatin 100,000 unit/gram topical powder 1 applic topical BID PRN yeast 07/10/23 rimegepant 75 mg disintegrating tablet 75 mg PO QODAY migraine 07/10/23 metaxalone 400 mg tablet 400 mg PO TID muscle spasms #1 TAB 07/11/23 carvedilol 12.5 mg tablet (Coreg) 12.5 mg PO BID 07/31/23 diclofenac sodium 75 mg tablet,delayed release 75 mg PO BID PRN pain 07/31/23 docusate sodium 100 mg tablet 100 mg PO TID PRN constipation 07/31/23 escitalopram oxalate 10 mg tablet 10 mg PO DAILY 07/31/23 fluticasone 232 mcg-salmeterol 14 mcg/actuation breath activated powdr 1 inh inhalation BID 07/31/23 pregabalin 100 mg capsule (Lyrica) 100 mg PO BID nerve pain 08/07/23 insulin glargine 100 unit/mL (3 mL) subcutaneous pen (Lantus Solostar U-100 Insulin) 60 unit (0.6 mL) subcut BID #15 mL 08/21/23 insulin lispro 100 unit/mL subcutaneous solution 45 unit (0.45 mL) subcut TID #10 mL 08/21/23 ondansetron 8 mg disintegrating tablet 8 mg PO Q8H 3 days #9 tabs 08/21/23 Hospital Course Operations None Summary of Care Provided Minutes Spent on Discharge: 35 Hospital Course: Patient presents with DKA. History is variable and evolving. Patient said that she had an insulin pump but is not working telling others, including myself that she never got an insulin pump. Tells people that she is not taking her insulin but then timing adamantly if she is taking her insulin. Clearly, the patient not taking enough insulin. She states that she has not qualified for an insulin pump yet due to insurance. She is tells me that she takes insulin U-500. I was able to pull up a progress note from May 13 for diabetes management and shows the patient is to take insulin glargine 60 units twice daily as well as Humalog 45 units 3 times daily with meals. Patient is resting in the endocrinology. Do not have any records on that through [facility]. Blood sugars have been stable and patient actually did receive 40 units of glargine after completing the insulin drip. She has not been eating much. Weight / BMI Weight Weight: 114.1 kg Body Mass Index (BMI) 36.0 ABG / Lab / Microbiology Data 08/21/23 06:22 08/21/23 06:22 Laboratory: Laboratory Results - last 24 hr 08/20/23 16:54: POC Glucose 276 H 08/20/23 22:35: POC Glucose 254 H 08/21/23 05:25: POC Glucose 218 H 08/21/23 06:22: WBC 9.6, RBC 3.16 L, Hgb 8.9 L, Hct 28.3 L, MCV 89.6, MCH 28.2, MCHC 31.4 L, RDW Std Deviation 48.5 H, RDW Coeff of Ilene 14.6, Plt Count 200, MPV 10.6, Immature Gran % (Auto) 0.400, Neut % (Auto) 68.4, Lymph % (Auto) 26.8, [place] % (Auto) 4.0, Eos % (Auto) 0.1, Baso % (Auto) 0.3, Absolute Neuts (auto) 6.6, Absolute Lymphs (auto) 2.57, Nucleated RBC % 0.2, Sodium 141, Potassium 3.9, Chloride 108 H, Carbon Dioxide 28.0, Anion Gap 5, BUN 30 H, Creatinine 1.71 H, Estim Creat Clear Calc 41.62, Est GFR (MDRD) Af Amer 40 L, Est GFR (MDRD) Non-Af 33 L, BUN/Creatinine Ratio 17.5, Glucose 253 H, Calcium 8.4 L 08/21/23 11:27: POC Glucose 175 H D/C Instructions Discharge Diet: Low fat / Low cholesterol Meaningful Use Info Meaningful Use Diagnoses (Choose all that apply): None applicable Discharge Plan Admission Admit Date/Time: 08/19/23 19:55 Primary Reason for Your Visit: Diabetic ketoacidosis. Attending Provider: Kaz Willingham Primary Care Provider: Migue Silveira Consulting Providers: Lynda Mercado Instructions Additional Instructions / Restrictions: You presented with diabetic ketoacidosis again. He stated that you take your insulin by you, if you are taking her insulin, are certainly not taking the right amount. I was able to find your diabetic manage progress note from May 13 of this year that showed that you were on insulin glargine 60 units twice daily as well as insulin lispro 45 units 3 times daily with meals. 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 I recommend going back on this regimen as it was not reflected on your home list however, if your not eating I would hold off on taking your insulin lispro with meals. Only utilize that if you are eating full amounts. Check your blood sugar with meals and at night and as needed. If your blood sugar staying consistently above 400, notify your physician or come back into the emergency room. Follow-up with your machine hoop maker helper in the next 2 weeks. Discharge Orders/Prescriptions Prescriptions: New insulin glargine [Lantus Solostar U-100 Insulin] 100 unit/mL (3 mL) insulin pen 60 unit subcut BID Qty: 15 0RF insulin lispro 100 unit/mL solution 45 unit subcut TID Qty: 10 0RF Rx Instructions: do not take if you are not eating. ondansetron 8 mg tablet,disintegrating 8 mg PO Q8H 3 Days Qty: 9 0RF Continued aspirin 81 mg tablet,delayed release (DR/EC) 81 mg PO DAILY multivitamin [Daily Multi-Vitamin] Tablet 1 tab PO DAILY Linzess 290 mcg capsule 290 mcg PO DAILY Qty: 90 3RF carvedilol [Coreg] 12.5 mg tablet 12.5 mg PO BID Rx Instructions: must administer with a meal/food diclofenac sodium 75 mg tablet,delayed release (DR/EC) 75 mg PO BID PRN (Reason: pain) escitalopram oxalate 10 mg tablet 10 mg PO DAILY pregabalin [Lyrica] 100 mg capsule 100 mg PO BID fluticasone propion-salmeterol 232-14 mcg/actuation aerosol powdr breath activated 1 inh inhalation BID trazodone 100 mg tablet 200 mg PO QHS Patient Comments: TAKE 2 TABLETS BY MOUTH ONCE DAILY AT BEDTIME AFTER A MEAL, DIRECTED, NEEDED FOR SLEEP/INSOMNIA acetaminophen 500 mg Tablet 1,000 mg PO BID pantoprazole 40 mg Tablet,Delayed Release (Dr/Ec) 40 mg PO DAILY magnesium oxide 400 mg magnesium Tablet 400 mg PO DAILY docusate sodium 100 mg tablet 100 mg PO TID PRN (Reason: constipation) hydroxyzine HCl 50 mg Tablet 50 mg PO Q8 PRN (Reason: anxiety) nitroglycerin 0.4 mg tablet, sublingual 0.4 mg sublingual Q5M Rx Instructions: do not exceed 3 doses per episode nystatin 100,000 unit/gram powder 1 applic topical BID PRN (Reason: yeast) Patient Comments: to groin bid ammonium lactate 12 % lotion 1 applic TOPICAL BID PRN PRN (Reason: itchy skin) Rx Instructions: apply to legs and arms bid rimegepant 75 mg tablet,disintegrating 75 mg PO QODAY metaxalone 400 mg tablet 400 mg PO TID Qty: 1 0RF ondansetron 4 mg tablet,disintegrating 4 mg PO Q8H PRN (Reason: nausea and vomiting) Qty: 90 1RF Discontinued Humulin R Regular U-100 Insuln 100 unit/mL solution 40 unit subcut TIDWMEAL Referrals / Follow Up: Migue Silveira DO [Primary Care Provider] - Within 2 Weeks Disposition Disposition (needs filled in before D/C Order can be placed): Home, Self Care Charges/Coding Visit Charges Inpatient E&M: 19906 Disch Hosp >30min
--- NOTE | 2023-08-21 14:41 | CASEMGMT ---
RACHEL MATHEW reviewed D/C summary prior to speaking with pt. RACHEL MATHEW called [facility] pharmacy to verify if her insulins would need a prior auth. Pharmacist asked for clarification for the insulin lispro 100 unit/mL solution if this was to be a vial or pen. RACHEL MATHEW backlined Dr. Willingham to ask him if he would like the insulin lispro 100 unit/mL solution to be via vial or pen and he informed this RN CM that it should be a pen. RACHEL MATHEW informed pharmacist of this, and the pharmacist then ran the insulins and informed RACHEL MATHEW that they do not require a prior auth.
--- NOTE | 2023-08-21 14:56 | CASEMGMT ---
Pt. has order for discharge. RACHEL MATHEW in to pt. room to discuss pt, needs at discharge. Pt's friend is also at the bedside per pt's permission. Pt. states she was not aware she was discharging today and has concerns that she is too confused to be home alone. Pt. is alert and oriented x4. RACHEL MATHEW clarified with pt. that she was feeling caught off guard that she was being discharged today and had questions about her medications. Pt's floor nurse is also in the room and pt. is informed that her RN will go over her medications and discharge instructions with her. This RN CM informed pt; that her medications were sent to [facility] pharmacy and that the pharmacy verified her insulins do not need a prior-auth. Pt. states she was confused about how she got to [facility] and where her car is, so her RN explained that she went first to [place] (which is likely where her car is), and then was transported to [facility]. Pt. states her friend will be transporting her home today. Pt. states she does not have any additional questions or concerns for this RN QUINCY at this time. I encouraged pt. to let me know if she has any additional questions or concerns. RACHEL MATHEW then spoke with pt's RN and the RN informed me that she does not feel pt. is confused and that this is behavioral.
[2023-08-21 15:30] VITALS: BP 132/78; PULSE 88; RESP 18; TEMP 36.8; O2SAT 98
== END 2023-08-21 15:51 | disposition home or self-care (01) | DRG 638 ==
LOC: ICU 08-20 12:42 → MS3 08-20 18:56
PROVIDERS: Admitting Provider Internal Medicine; PCP Student in an Organized Health Care Education/Training Program
DX: E11.10 Type 2 diabetes mellitus with ketoacidosis without coma (principal); N17.9 Acute kidney failure, unspecified; Z68.41 Body mass index [BMI] 40.0-44.9, adult; D63.1 Anemia in chronic kidney disease; E11.22 Type 2 diabetes mellitus with diabetic chronic kidney disease; N18.32 Chronic kidney disease, stage 3b; L97.511 Non-pressure chronic ulcer of other part of right foot limited to breakdown of skin; E66.01 Morbid (severe) obesity due to excess calories; E11.65 Type 2 diabetes mellitus with hyperglycemia; E11.42 Type 2 diabetes mellitus with diabetic polyneuropathy; E11.621 Type 2 diabetes mellitus with foot ulcer; Z79.4 Long term (current) use of insulin; I12.9 Hypertensive chronic kidney disease with stage 1 through stage 4 chronic kidney disease, or unspecified chronic kidney disease; G43.909 Migraine, unspecified, not intractable, without status migrainosus; K21.9 Gastro-esophageal reflux disease without esophagitis; E78.5 Hyperlipidemia, unspecified; G47.33 Obstructive sleep apnea (adult) (pediatric); L84 Corns and callosities; G47.00 Insomnia, unspecified; Z98.84 Bariatric surgery status; Z91.148 Patient's other noncompliance with medication regimen for other reason; Z91.199 Patient's noncompliance with other medical treatment and regimen due to unspecified reason; Z79.82 Long term (current) use of aspirin; Z79.899 Other long term (current) drug therapy; Z86.16 Personal history of COVID-19; Z83.3 Family history of diabetes mellitus
CPT/HCPCS: 36415; 80048; 82947; 82962; 83735; 84100; 85025; 94640; 97162; 97166; 97802; J7030; A4216; J2405

== ENCOUNTER → 2023-08-27 | Outpatient (CLI) | payer OTHER, SELFPAY ==
--- NOTE | 2023-08-27 09:47 | ECHOCS_ITS ---
Reason For Study: SOB Procedure This was a 2D Doppler, Color Flow transthoracic echocardiogram. The study was technically difficult. Contrast injection was performed. Exam performed in department. Left Ventricle Normal LV size. Left ventricular systolic function is normal. The estimated ejection fraction is 60 %. No regional wall motion abnormalities noted. Right Ventricle Normal RV size. Normal systolic function. Pulmonic Valve Normal pulmonic valve. Great Vessels Normal aortic root. The pulmonary artery is normal size. Normal inferior vena cava. Pericardium/Pleural No pericardial effusion. Medication 22 gauge I.V. with prn adaptor inserted into right arm. Diluted definity 1ml given slow IV push to enhance endocardial definition. MMode/2D Measurements & Calculations LVIDd: 5.7 cm IVSd: 0.72 cm Ao root diam: 3.8 cm LVIDs: 3.3 cm LVPWd: 0.88 cm LA dimension: 4.5 cm RVDd: 4.0 cm FS: 42.1 % LAV(MOD-bp): 80.0 ml SV(MOD-sp4): 75.6 ml LVAd ap4: 36.8 cm2 LAV(MOD-bp) Indexed: 33.8 ml/m2 LVLd ap4: 8.2 cm LAV(MOD-sp2): 83.4 ml EDV(MOD-sp4): 133.0 ml LAV(MOD-sp4): 70.0 ml EDV(sp4-el): 140.4 ml LVAs ap4: 21.5 cm2 LVLs ap4: 6.5 cm ESV(MOD-sp4): 57.4 ml ESV(sp4-el): 59.8 ml EF(MOD-sp4): 56.8 % EF(sp4-el): 57.4 % SV(sp4-el): 80.7 ml LA A4 area: 21.4 cm2 RA A4 area: 21.3 cm2 TAPSE: 2.0 cm Time Measurements MV dec time: 0.21 sec Doppler Measurements & Calculations MV E max augusto: 86.1 cm/sec Lat Peak E' Augusto: 9.9 cm/sec Med Peak E' Augusto: 8.2 cm/sec MV A max augusto: 83.2 cm/sec E/E' lat: 8.7 E/E' med: 10.4 MV E/A: 1.0 MV V2 max: 92.3 cm/sec MV P1/2t max augusto: 93.9 cm/sec Ao V2 max: 161.2 cm/sec MV max P.4 mmHg MV P1/2t: 66.2 msec Ao max P.4 mmHg MV V2 mean: 57.5 cm/sec MV dec slope: 415.3 cm/sec2 Ao V2 mean: 106.5 cm/sec MV mean P.5 mmHg MVA(P1/2t): 3.3 cm2 Ao mean P.3 mmHg MV V2 VTI: 25.8 cm Ao V2 VTI: 33.1 cm AV (velocity ratio): 0.82 LV V1 max: 124.0 cm/sec PA V2 max: 89.5 cm/sec LV V1 max P.2 mmHg PA V2 mean: 63.5 cm/sec LV V1 mean P.0 mmHg LV V1 mean: 80.1 cm/sec LV V1 VTI: 27.0 cm ECHO/Echo Complete W/ Contrast Interpretation Summary Normal LV size. Left ventricular systolic function is normal. The estimated ejection fraction is 60 %. Structurally normal valves. Ordering Physician: Michael Henley V Referring Physician: Michael Henley V Performed By: Chong Gant RCS
== END | disposition home or self-care (01) ==
LOC: CVS 09:38
PROVIDERS: PCP Student in an Organized Health Care Education/Training Program; Referring Provider Internal Medicine Pulmonary Disease; Visit Provider Internal Medicine Pulmonary Disease
DX: R06.02 Shortness of breath (principal)
CPT/HCPCS: 93306; Q9957; A4216; C8929

== ENCOUNTER 2023-09-18 13:00 | Outpatient (RCR) | payer OTHER, SELFPAY ==
[2023-08-28 00:48] VITALS: BP 94/62; PULSE 71; RESP 16; TEMP 35.9; BMI 38.7
[2023-09-04 13:18] VITALS: BP 107/77; PULSE 78; RESP 18; TEMP 35.5; BMI 38.7
--- NOTE | 2023-09-04 13:52 | PN.PCM_ITS ---
History of Present Illness Date of Service: 09/04/23 Chief Complaint: Right and left DFU ulcers History of Wound: Mrs. Sherwood is a 53-year-old uncontrolled diabetic seen in the wound care center today with a chief complaint of full-thickness ulceration to the right big toe. As the patient presents today at the wound care center she is vomiting secondary to feeling nauseous and sick. She admits to not eating for the past 2 days. When questioned about her blood sugar levels, she says that her monitor only reads high and does not give a number. When tested in the wound care center today the patient's blood sugar was greater than 600 as are meter can only go as high as 600 mg/dL. She admits to vomiting and chills. She denies any trauma. Denies any other pedal complaints. Subjective Subjective Mrs. Sherwood is a 53-year-old diabetic female presenting to the wound care center today for follow-up of full-thickness ulceration to right hallux. Patient has been ambulating as tolerated. She continues to do home dressing changes as instructed. She admits her wound is smaller. Patient also states she was in the hospital at [place] with a blood sugar of 900 mg/dL plus. Now she is better she is on a higher dose of insulin. However she states that her blood sugar which very low in the 60s this morning. She denies trauma. Denies constitutional symptoms. No other pedal complaints at this time. Objective Data Objective Data Vital Signs: Vital Signs Temp Pulse Resp BP O2 Del Method 95.9 F L 78 18 107/77 Room Air 09/04/23 13:18 09/04/23 13:18 09/04/23 13:18 09/04/23 13:18 09/04/23 13:18 Oxygen Delivery Method Room Air Weight: 122.47 kg Body Mass Index (BMI) 38.7 Physical Exam Narrative Vascular: DP and PT pulses are palpable. CFT is brisk. Evidence of nonpitting edema appreciated to the left forefoot on the dorsal aspect. Skin temperature great is warm to warm from proximal ankle to distal digits. Neurological: Light touch intact. Protective sensation is diminished. Dermatological: Ecchymosis improved appreciated to the left foot second and third metatarsal. Evidence of full-thickness ulceration to the right hallux measuring 1.0 x 0.6 x 0.1 cm. Evidence of hyperkeratotic periwound. No drainage, erythema or proximal streaking, probe to bone or sign infection. Excisional excisional debridement down to including subcutaneous tissue of the full-thickness ulceration of the right hallux with number 5 mm curette without incident. Predebridement measurements 0.6 x 0.2 x 0.1 cm. Postdebridement measurements are 1.0 x 0.6 x 0.1 cm. Musculoskeletal: Muscle strength 5 and 5 in all quadrants bilateral. Moderate to severe palpatory tenderness appreciated to the second and third metatarsophalangeal joint of the left foot. Pain with active and passive range of motion to the second and third digit of the left foot. No pain with calf compression bilateral lower extremity. Debridement Note Debridement Note Debridement Free Text: Excisional excisional debridement down to including subcutaneous tissue of the full-thickness ulceration of the right hallux with number 5 mm curette without incident. Predebridement measurements 0.6 x 0.2 x 0.1 cm. Postdebridement measurements are 1.0 x 0.6 x 0.1 cm. Post-Debridement Measurements and Additional Note: Post-Debridement Measurements/Treatment - Nurse 1 - General Ulcer Assessment Start: 09/04/23 13:18 Freq: Status: Active Protocol: [email or web address] Activity Type Activity Date Activity User E-sign Co-sign Detail Recorded Client Recorded Date Recorded By Document 09/04/23 13:18 KW Desktop 09/04/23 13:23 KW 09/04/23 13:18 - Today's Visit Information Type of service Follow-up Visit (Physician/[employer] ) Arrival Mode Ambulatory Patient Identification Verified (Name & Yes ) Finger Stick Blood Sugar(mg/dl) (if 66 indicated): Blood Sugar Stated by Patient Height and Weight Body Mass Index (BMI) 38.7 BMI Classification Obese Vital Signs Temperature (97.8 F-99.1 F) 95.9 F L Temperature Source Temporal Pulse Rate (60-100) 78 Pulse Location Monitor Respiratory Rate (12-18) 18 Respiratory rate source Observation Oxygen Delivery Method Room Air Blood Pressure (90/60-120/80) 107/77 Blood Pressure Mean (mm Hg) 87 Source Monitor Position Semi-Fowlers Blood Pressure Location Right Arm History Since Last Visit- (Skip if this is Patient's initial visit) Have you changed medications since your No last visit? Any new allergies or adverse reactions No Had a fall/change in ADL's that may No increase risk of falls Signs or symptoms of abuse and/or No neglect since last visit Have you been in the hospital since your Yes last visit? Has dressing in place as prescribed Yes Has compression in place as prescribed No Has offloadiing in place as prescribed No Experienced any changes in pain level or No management Left Footwear Regular Shoe Right Footwear Regular Shoe Pain Scale: 0-10 Numeric Is Patient Pain Free? Yes - Nurse 1 - General Ulcer Measurement Start: 09/04/23 13:18 Freq: Status: Active Protocol: Activity Type Activity Date Activity User E-sign Co-sign Detail Recorded Client Recorded Date Recorded By Document 09/04/23 13:18 KW Desktop 09/04/23 13:23 KW 09/04/23 13:18 Wound Center Nurse 1 4. R hallux -Current Size (cm) - Length 0.5 -Current Size (cm) - Width 0.4 -Current Size (cm) - Depth 0.2 -Total Square Cm 0.20 -Exudate Amt Small -Exudate Type Serosanguineous -Wound Margin Distinct, Outline Attached -Granulation Amt Medium (34-66%) -Granulation Quality Red -Necrosis Amt Small (1-33%) -Necrotic Tissue Type Adherent Slough -Texture (Megan-wound Skin Appearance) Assessed,Callus -Moisture (Megan-wound Skin Appearance) Assessed -Color (Megan-wound Skin Appearance) Assessed -Temperature (Megan-wound Skin No Abnormality Appearance) (Pt Warm) -Ulcer Cleansing Rinsed/ Irrigated with Saline -Anesthetic Used 5% Lidocaine Gel - Nurse 2 - General Ulcer CM Notes Start: 09/04/23 13:18 Freq: Status: Active Protocol: Activity Type Activity Date Activity User E-sign Co-sign Detail Recorded Client Recorded Date Recorded By Document 09/04/23 13:26 Laptop 09/04/23 13:28 09/04/23 13:26 Wound Center Nurse 2 -Time 13:27 -Correct Patient Yes -Correct Side, Site, Position Yes -Correct Procedure Yes -Procedure Performed Yes -Type of Procedure Debridement -Clinical Debridement Subcutaneous -Tissue Removed Subcutaneous -Post Debridement (cm) - Length 1.0 -Post Debridement (cm) - Width 0.6 -Post Debridement (cm) - Depth 0.1 -Total Square (Post) (cm) 0.60 -Area of Debridement (cm) - Length 1.0 -Area of Debridement (cm) - Width 0.6 -Total Square (Area) (cm) 0.60 -Tunneling No -Undermining/Tunneling No -Circular Undermining No -Wound/Ulcer Outcome Not Healed -Ulcer Cleansing Rinsed/ Irrigated with Saline -Foul Odor after Cleansing No -Bioengineered Tissue No -Bleeding Controlled with Pressure -Treatment Response Procedure Tolerated Well -Offloading No -Debridement - Subq, 1st 20sq cm Yes Pain Scale: 0-10 Numeric Is Patient Pain Free? Yes - Nurse 3 - General Ulcer D/C NN Start: 09/04/23 13:18 Freq: Status: Active Protocol: Activity Type Activity Date Activity User E-sign Co-sign Detail Recorded Client Recorded Date Recorded By Document 09/04/23 13:32 Desktop 09/04/23 13:35 09/04/23 13:32 Wound Care Center Nurse 3 4. R hallux -Ulcer Cleansing Not Cleansed -Foul Odor after Cleansing No -Negative Pressure Wound Therapy N/A -Primary Dressing Applied Promogran Allyn Matter -Primary Dressing Covered/Secured with Dry Gauze & Roll Gauze, Secured with Tape -Promogran Allyn Matter 1 Pain Scale: 0-10 Numeric Is Patient Pain Free? Yes Teaching: Wound Center Dressing Your Wound -Person Taught Patient -Teaching Method Discussion, Demonstration -Response to teaching Verbalize understanding WC - Visit Discharge Discharge Condition Stable Ambulatory Status Ambulatory Transportation Private Auto Medication Reconcilliation completed & Yes provided to patient/care provider Clinical Summary of Care Provided Yes Assessment/Plan Assessment/Plan (1) Ulcer of foot with fat layer exposed: CODE(S): L97.502 - Non-pressure chronic ulcer of other part of unspecified foot with fat layer exposed QUALIFIERS: Laterality: right Qualified Code(s): L97.512 - Non- pressure chronic ulcer of other part of right foot with fat layer exposed PLAN: Patient was examined evaluated. All findings were discussed with the patient. All questions were answered to the patient's satisfaction. Excisional excisional debridement down to including subcutaneous tissue of the full-thickness ulceration of the right hallux with number 5 mm curette without incident. Predebridement measurements 0.6 x 0.2 x 0.1 cm. Postdebridement measurements are 1.0 x 0.6 x 0.1 cm. Wound was dressed with Allyn and Band- Aid. Patient will continue to have her blood sugar checked before leaving the wound care center today. Educated the patient that if her blood sugar continues to be low she will need to go over to the emergency room at [facility] as she is unfit/safe to drive. Patient is understanding this and will follow-up with the wound care center in 1 week. 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
[2023-09-04 15:18] LABS: Bedside Glucose 39 mg/dL (74-106)
[2023-09-11 13:14] VITALS: BP 97/58; PULSE 74; TEMP 35.4; BMI 38.7
--- NOTE | 2023-09-11 14:37 | PN.PCM_ITS ---
History of Present Illness Date of Service: 09/11/23 Chief Complaint: Right and left DFU ulcers History of Wound: Mrs. Sherwood is a 53-year-old uncontrolled diabetic seen in the wound care center today with a chief complaint of full-thickness ulceration to the right big toe. As the patient presents today at the wound care center she is vomiting secondary to feeling nauseous and sick. She admits to not eating for the past 2 days. When questioned about her blood sugar levels, she says that her monitor only reads high and does not give a number. When tested in the wound care center today the patient's blood sugar was greater than 600 as are meter can only go as high as 600 mg/dL. She admits to vomiting and chills. She denies any trauma. Denies any other pedal complaints. Subjective Subjective Mrs. Sherwood is a 53-year-old diabetic female presenting to the wound care center today for follow-up of full-thickness ulceration to right hallux. Patient states that her blood sugar is elevated today. She did see her developer advocate and will be getting a pump for her insulin. She admits to being out of strips to check her blood sugar. She still has a complaint of the ulceration to the right hallux. She would like to move forward with first metatarsal phalangeal joint fusion as it may take some time to get her booked and she can get her blood sugar regulated with her developer advocate. She denies trauma. Denies constitutional symptoms. No other pedal complaints at this time. Objective Data Objective Data Vital Signs: Vital Signs Temp Pulse Resp BP O2 Del Method 95.8 F L 74 18 97/58 L Room Air 09/11/23 13:14 09/11/23 13:14 09/04/23 13:18 09/11/23 13:14 09/11/23 13:14 Oxygen Delivery Method Room Air Weight: 122.47 kg Body Mass Index (BMI) 38.7 Physical Exam Narrative Vascular: DP and PT pulses are palpable. CFT is brisk. Evidence of nonpitting edema appreciated to the left forefoot on the dorsal aspect. Skin temperature great is warm to warm from proximal ankle to distal digits. Neurological: Light touch intact. Protective sensation is diminished. Dermatological: Ecchymosis improved appreciated to the left foot second and third metatarsal. Evidence of full-thickness ulceration to the right hallux measuring 0.7 x 0.6 x 0.1 cm. Evidence of hyperkeratotic periwound. No drainage, erythema or proximal streaking, probe to bone or sign infection. Excisional excisional debridement down to including subcutaneous tissue of the full-thickness ulceration of the right hallux with number 5 mm curette without incident. Predebridement measurements 0.4 x 0.3 x 0.1 cm. Postdebridement measurements are 0.7 x 0.6 x 0.1 cm. Musculoskeletal: Muscle strength 5 and 5 in all quadrants bilateral. Moderate to severe palpatory tenderness appreciated to the second and third metatarsopha langeal joint of the left foot. Pain with active and passive range of motion to the second and third digit of the left foot. No pain with calf compression bilateral lower extremity. Debridement Note Debridement Note Debridement Free Text: Excisional excisional debridement down to including subcutaneous tissue of the full-thickness ulceration of the right hallux with number 5 mm curette without incident. Predebridement measurements 0.4 x 0.3 x 0.1 cm. Postdebridement measurements are 0.7 x 0.6 x 0.1 cm. Post-Debridement Measurements and Additional Note: Post-Debridement Measurements/Treatment - Nurse 1 - General Ulcer Assessment Start: 09/04/23 13:18 Freq: Status: Active Protocol: EMEKA Activity Type Activity Date Activity User E-sign Co-sign Detail Recorded Client Recorded Date Recorded By Document 09/04/23 13:18 Desktop 09/04/23 13:23 Document 09/11/23 13:14 Desktop 09/11/23 13:19 09/04/23 09/11/23 13:18 13:14 - Today's Visit Information Type of service Follow-up Visit Follow-up Visit (Physician/COMBAT ENGINEER (Physician/COMBAT ENGINEER ) ) Arrival Mode Ambulatory Ambulatory Transfer Assistance None Patient Identification Verified (Name & Yes ) Finger Stick Blood Sugar(mg/dl) (if 66 indicated): Blood Sugar Stated by Patient Height and Weight Body Mass Index (BMI) 38.7 38.7 BMI Classification Obese Obese Vital Signs Temperature (97.8 F-99.1 F) 95.9 F L 95.8 F L Temperature Source Temporal Temporal Pulse Rate (60-100) 78 74 Pulse Location Monitor Monitor Respiratory Rate (12-18) 18 Respiratory rate source Observation Observation Oxygen Delivery Method Room Air Room Air Blood Pressure (90/60-120/80) 107/77 97/58 L Blood Pressure Mean (mm Hg) 87 71 Source Monitor Monitor Position Semi-Fowlers Sitting Blood Pressure Location Right Arm Right Arm History Since Last Visit- (Skip if this is Patient's initial visit) Have you changed medications since your No No last visit? Any new allergies or adverse reactions No No Had a fall/change in ADL's that may No No increase risk of falls Signs or symptoms of abuse and/or No No neglect since last visit Have you been in the hospital since your Yes No last visit? Has dressing in place as prescribed Yes Yes Has compression in place as prescribed No No Has offloadiing in place as prescribed No No Experienced any changes in pain level or No No management Left Footwear Regular Shoe Regular Shoe Right Footwear Regular Shoe Regular Shoe Pain Scale: 0-10 Numeric Is Patient Pain Free? Yes Yes WC - Nurse 1 - General Ulcer Measurement Start: 09/04/23 13:18 Freq: Status: Active Protocol: Activity Type Activity Date Activity User E-sign Co-sign Detail Recorded Client Recorded Date Recorded By Document 09/04/23 13:18 KW Desktop 09/04/23 13:23 Document 09/11/23 13:14 Desktop 09/11/23 13:19 09/04/23 09/11/23 13:18 13:14 Wound Center Nurse 1 4. R hallux -Combined with other wound No -Current Size (cm) - Length 0.5 0.9 -Current Size (cm) - Width 0.4 1.8 -Current Size (cm) - Depth 0.2 0.1 -Total Square Cm 0.20 1.62 -Epithelialization Small 1-33% -Tunneling No -Undermining/Tunneling No -Circular Undermining No -Exudate Amt Small Small -Exudate Type Serosanguineous Serosanguineous -Wound Margin Distinct, Flat & Intact Outline Attached -Granulation Amt Medium (34-66%) Medium (34-66%) -Granulation Quality Red Red -Slough/Fibrin Yes -Necrosis Amt Small (1-33%) Small (1-33%) -Necrotic Tissue Type Adherent Slough Adherent Slough -Texture (Megan-wound Skin Appearance) Assessed,Callus Scarring -Moisture (Megan-wound Skin Appearance) Assessed Assessed -Color (Megan-wound Skin Appearance) Assessed Assessed -Temperature (Megan-wound Skin No Abnormality No Abnormality Appearance) (Pt Warm) (Pt Warm) -Tenderness on Palpation (Megan-wound No Skin Appearance) -Ulcer Cleansing Rinsed/ Rinsed/ Irrigated with Irrigated with Saline Saline -Foul Odor after Cleansing No -Anesthetic Used 5% Lidocaine 5% Lidocaine Gel Gel - Nurse 2 - General Ulcer CM Notes Start: 09/04/23 13:18 Freq: Status: Active Protocol: Activity Type Activity Date Activity User E-sign Co-sign Detail Recorded Client Recorded Date Recorded By Document 09/04/23 13:26 Laptop 09/04/23 13:28 Document 09/11/23 13:37 Laptop 09/11/23 13:38 09/04/23 09/11/23 13:26 13:37 Wound Center Nurse 2 4. R hallux -Time 13:27 13:37 -Correct Patient Yes Yes -Correct Side, Site, Position Yes Yes -Correct Procedure Yes Yes -Procedure Performed Yes Yes -Type of Procedure Debridement Debridement -Clinical Debridement Subcutaneous Subcutaneous -Tissue Removed Subcutaneous Subcutaneous -Post Debridement (cm) - Length 1.0 0.7 -Post Debridement (cm) - Width 0.6 0.6 -Post Debridement (cm) - Depth 0.1 0.1 -Total Square (Post) (cm) 0.60 0.42 -Area of Debridement (cm) - Length 1.0 0.7 -Area of Debridement (cm) - Width 0.6 0.6 -Total Square (Area) (cm) 0.60 0.42 -Tunneling No No -Undermining/Tunneling No No -Circular Undermining No No -Wound/Ulcer Outcome Not Healed Not Healed -Ulcer Cleansing Rinsed/ Rinsed/ Irrigated with Irrigated with Saline Saline -Foul Odor after Cleansing No No -Bioengineered Tissue No No -Bleeding Controlled with Pressure Pressure -Treatment Response Procedure Procedure Tolerated Well Tolerated Well -Offloading No No -Debridement - Subq, 1st 20sq cm Yes Yes Pain Scale: 0-10 Numeric Is Patient Pain Free? Yes Yes SANTIAGO - Nurse 3 - General Ulcer D/C NN Start: 09/04/23 13:18 Freq: Status: Active Protocol: Activity Type Activity Date Activity User E-sign Co-sign Detail Recorded Client Recorded Date Recorded By Document 09/04/23 13:32 Desktop 09/04/23 13:35 Document 09/11/23 13:48 NR Desktop 09/11/23 13:51 NR 09/04/23 09/11/23 13:32 13:48 Wound Care Center Nurse 3 4. R hallux -Ulcer Cleansing Not Cleansed Rinsed/ Irrigated with Saline -Foul Odor after Cleansing No No -Negative Pressure Wound Therapy N/A -Primary Dressing Applied Promogran Promogran Allyn Matter Allyn Matter -Other Dressing Betadine to megan-wound, Coban to secure -Primary Dressing Covered/Secured with Dry Gauze & Roll Gauze, Secured with Tape -Promogran Allyn Matter 1 1 Pain Scale: 0-10 Numeric Is Patient Pain Free? Yes Yes Teaching: Wound Center Dressing Your Wound -Person Taught Patient -Teaching Method Discussion, Demonstration -Response to teaching Verbalize understanding WC - Visit Discharge Discharge Condition Stable Stable Ambulatory Status Ambulatory Ambulatory Transportation Private Auto Private Auto Accompanied by Self Medication Reconcilliation completed & Yes Yes provided to patient/care provider Clinical Summary of Care Provided Yes Yes Assessment/Plan Assessment/Plan (1) Diabetic ulcer of foot associated with diabetes mellitus due to underlying condition, limited to breakdown of skin: CODE(S): E08.621 - Diabetes mellitus due to underlying condition with foot ulcer; L97.501 - Non-pressure chronic ulcer of other part of unspecified foot limited to breakdown of skin QUALIFIERS: Diabetic foot ulcer location: toe Laterality: left Qualified Code(s): E08.621 - Diabetes mellitus due to underlying condition with foot ulcer; L97.521 - Non-pressure chronic ulcer of other part of left foot limited to breakdown of skin PLAN: Patient was examined evaluated. All findings were discussed with the patient. All questions were answered to the patient's satisfaction. Excisional excisional debridement down to including subcutaneous tissue of the full-thickness ulceration of the right hallux with number 5 mm curette without incident. Predebridement measurements 0.4 x 0.3 x 0.1 cm. Postdebridement measurements are 0.7 x 0.6 x 0.1 cm. Area was dressed with Allyn and dry sterile dressing. Educated the patient that she would benefit from first metatarsophalangeal joint arthrodesis to help heal her wound secondary to her hallux valgus contracture. Patient would like to move forward with surgery. Patient is aware that high blood sugar will decrease the likelihood of her healing and will continue to work with her developer advocate to get her blood sugar and A1c stable prior to surgery. Patient understands all risk and benefits. Follow-up in 1 week. (2) Type 2 diabetes mellitus with foot ulcer: CODE(S): E11.621 - Type 2 diabetes mellitus with foot ulcer; L97.509 - Non-pressure chronic ulcer of other part of unspecified foot with unspecified severity QUALIFIERS: Diabetes mellitus exterminator helper termite insulin use: with [facility] use Qualified Code(s): E11.621 - Type 2 diabetes mellitus with foot ulcer; L97.509 - Non-pressure chronic ulcer of other part of unspecified foot with unspecified severity; Z79.4 - senior living (current) use of insulin (3) Diabetes mellitus with diabetic polyneuropathy: CODE(S): E11.42 - Type 2 diabetes mellitus with diabetic polyneuropathy QUALIFIERS: Diabetes mellitus type: type 2 Diabetes mellitus [facility] insulin use: with [facility] use Qualified Code(s): E11.42 - Type 2 diabetes mellitus with diabetic polyneuropathy; Z79.4 - director long term care (current) use of insulin
[2023-09-18 13:02] VITALS: BP 132/70; PULSE 82; TEMP 35.8; BMI 38.7
--- NOTE | 2023-09-18 14:20 | PCM.WC.PN ---
History of Present Illness Date of Service: 09/18/23 Chief Complaint: Right and left DFU ulcers History of Wound: Mrs. Sherwood is a 53-year-old uncontrolled diabetic seen in the wound care center today with a chief complaint of full-thickness ulceration to the right big toe. As the patient presents today at the wound care center she is vomiting secondary to feeling nauseous and sick. She admits to not eating for the past 2 days. When questioned about her blood sugar levels, she says that her monitor only reads high and does not give a number. When tested in the wound care center today the patient's blood sugar was greater than 600 as are meter can only go as high as 600 mg/dL. She admits to vomiting and chills. She denies any trauma. Denies any other pedal complaints. Subjective Subjective Mrs. Sherwood is a 53-year-old diabetic female presenting to the wound care center today for follow-up evaluation of full-thickness ulceration to the right hallux. Patient states that her blood sugar is 156 mg/dL today. She is working with her validation specialist to regulate her blood sugar. She would like to move forward with surgery to her big toe joint and the right foot but states she needs to get her blood sugar and A1c better under control. She denies any hospitalizations at this time. She denies trauma. Denies constitutional symptoms. No other pedal complaints at this time. Objective Data Objective Data Vital Signs: Vital Signs Temp Pulse Resp BP O2 Del Method 96.5 F L 82 18 132/70 H Room Air 09/18/23 13:02 09/18/23 13:02 09/04/23 13:18 09/18/23 13:02 09/18/23 13:02 Oxygen Delivery Method Room Air Weight: 122.47 kg Body Mass Index (BMI) 38.7 Physical Exam Narrative Vascular: DP and PT pulses are palpable. CFT is brisk. Evidence of nonpitting edema appreciated to the left forefoot on the dorsal aspect. Skin temperature great is warm to warm from proximal ankle to distal digits. Neurological: Light touch intact. Protective sensation is diminished. Dermatological: Ecchymosis improved appreciated to the left foot second and third metatarsal. Evidence of full-thickness ulceration to the right hallux measuring 0.5 x 0.4 x 0.1 cm. Evidence of hyperkeratotic periwound. No drainage, erythema or proximal streaking, probe to bone or sign infection. Excisional excisional debridement down to including subcutaneous tissue of the full-thickness ulceration of the right hallux with number 5 mm curette without incident. Predebridement measurements 0.4 x 0.3 x 0.1 cm. Postdebridement measurements are 0.5 x 0.4 x 0.1 cm. Musculoskeletal: Muscle strength 5 and 5 in all quadrants bilateral. Moderate to severe palpatory tenderness appreciated to the second and third metatarsophalangeal joint of the left foot. Pain with active and passive range of motion to the second and third digit of the left foot. No pain with calf compression bilateral lower extremity. Debridement Note Debridement Note Debridement Free Text: Excisional excisional debridement down to including subcutaneous tissue of the full-thickness ulceration of the right hallux with number 5 mm curette without incident. Predebridement measurements 0.4 x 0.3 x 0.1 cm. Postdebridement measurements are 0.5 x 0.4 x 0.1 cm. Post-Debridement Measurements and Additional Note: Post-Debridement Measurements/Treatment - Nurse 1 - General Ulcer Assessment Start: 09/04/23 13:18 Freq: Status: Active Protocol: [email or web address].[email or web address] Activity Type Activity Date Activity User E-sign Co-sign Detail Recorded Client Recorded Date Recorded By Document 09/04/23 13:18 Desktop 09/04/23 13:23 Document 09/11/23 13:14 Desktop 09/11/23 13:19 Document 09/18/23 13:02 Desktop 09/18/23 13:04 09/04/23 09/11/23 09/18/23 13:18 13:14 13:02 - Today's Visit Information Type of service Follow-up Visit Follow-up Visit Follow-up Visit (Physician/SIGNAL TOWER DIRECTOR (Physician/SIGNAL TOWER DIRECTOR (Physician/SIGNAL TOWER DIRECTOR ) ) ) Arrival Mode Ambulatory Ambulatory Ambulatory Transfer Assistance None None Patient Identification Verified (Name & Yes Yes ) Patient Requires Transmission-Based No Precautions Safety Precautions Fall Prevention Finger Stick Blood Sugar(mg/dl) (if 66 indicated): Blood Sugar Stated by Patient Height and Weight Body Mass Index (BMI) 38.7 38.7 38.7 BMI Classification Obese Obese Obese Vital Signs Temperature (97.8 F-99.1 F) 95.9 F L 95.8 F L 96.5 F L Temperature Source Temporal Temporal Temporal Pulse Rate (60-100) 78 74 82 Pulse Location Monitor Monitor Monitor Respiratory Rate (12-18) 18 Respiratory rate source Observation Observation Observation Oxygen Delivery Method Room Air Room Air Room Air Blood Pressure (90/60-120/80) 107/77 97/58 L 132/70 H Blood Pressure Mean (mm Hg) 87 71 90 Source Monitor Monitor Monitor Position Semi-Fowlers Sitting Sitting Blood Pressure Location Right Arm Right Arm Left Arm History Since Last Visit- (Skip if this is Patient's initial visit) Have you changed medications since your No No No last visit? Any new allergies or adverse reactions No No No Had a fall/change in ADL's that may No No No increase risk of falls Signs or symptoms of abuse and/or No No No neglect since last visit Have you been in the hospital since your Yes No No last visit? Has dressing in place as prescribed Yes Yes Yes Has compression in place as prescribed No No N/A Has offloadiing in place as prescribed No No N/A Experienced any changes in pain level or No No No management Left Footwear Regular Shoe Regular Shoe Regular Shoe Right Footwear Regular Shoe Regular Shoe Regular Shoe Pain Scale: 0-10 Numeric Is Patient Pain Free? Yes Yes Yes - Nurse 1 - General Ulcer Measurement Start: 09/04/23 13:18 Freq: Status: Active Protocol: Activity Type Activity Date Activity User E-sign Co-sign Detail Recorded Client Recorded Date Recorded By Document 09/04/23 13:18 [employer] 09/04/23 13:23 Document 09/11/23 13:14 Desktop 09/11/23 13:19 Document 09/18/23 13:02 Desktop 09/18/23 13:04 09/04/23 09/11/23 09/18/23 13:18 13:14 13:02 Wound Center Nurse 1 4. R hallux -Combined with other wound No -Current Size (cm) - Length 0.5 0.9 1.0 -Current Size (cm) - Width 0.4 1.8 1.7 -Current Size (cm) - Depth 0.2 0.1 0.1 -Total Square Cm 0.20 1.62 1.70 -Photo Taken No -Epithelialization Small 1-33% Small 1-33% -Tunneling No No -Undermining/Tunneling No No -Circular Undermining No No -Exudate Amt Small Small Small -Exudate Type Serosanguineous Serosanguineous Yellow/Green -Wound Margin Distinct, Flat & Intact Distinct, Outline Outline Attached Attached -Granulation Amt Medium (34-66%) Medium (34-66%) Medium (34-66%) -Granulation Quality Red Red Red -Slough/Fibrin Yes -Necrosis Amt Small (1-33%) Small (1-33%) Small (1-33%) -Necrotic Tissue Type Adherent Slough Adherent Slough Adherent Slough -Structure Exposed N/A -Texture (Megan-wound Skin Appearance) Assessed,Callus Scarring Assessed, Scarring -Moisture (Megan-wound Skin Appearance) Assessed Assessed Assessed -Color (Megan-wound Skin Appearance) Assessed Assessed Assessed -Temperature (Megan-wound Skin No Abnormality No Abnormality No Abnormality Appearance) (Pt Warm) (Pt Warm) (Pt Warm) -Tenderness on Palpation (Megan-wound No No Skin Appearance) -Ulcer Cleansing Rinsed/ Rinsed/ Rinsed/ Irrigated with Irrigated with Irrigated with Saline Saline Saline -Foul Odor after Cleansing No No -Anesthetic Used 5% Lidocaine 5% Lidocaine 5% Lidocaine Gel Gel Gel WC - Nurse 2 - General Ulcer CM Notes Start: 09/04/23 13:18 Freq: Status: Active Protocol: Activity Type Activity Date Activity User E-sign Co-sign Detail Recorded Client Recorded Date Recorded By Document 09/04/23 13:26 Laptop 09/04/23 13:28 Document 09/11/23 13:37 Laptop 09/11/23 13:38 09/04/23 09/11/23 13:26 13:37 Wound Center Nurse 2 4. R hallux -Time 13:27 13:37 -Correct Patient Yes Yes -Correct Side, Site, Position Yes Yes -Correct Procedure Yes Yes -Procedure Performed Yes Yes -Type of Procedure Debridement Debridement -Clinical Debridement Subcutaneous Subcutaneous -Tissue Removed Subcutaneous Subcutaneous -Post Debridement (cm) - Length 1.0 0.7 -Post Debridement (cm) - Width 0.6 0.6 -Post Debridement (cm) - Depth 0.1 0.1 -Total Square (Post) (cm) 0.60 0.42 -Area of Debridement (cm) - Length 1.0 0.7 -Area of Debridement (cm) - Width 0.6 0.6 -Total Square (Area) (cm) 0.60 0.42 -Tunneling No No -Undermining/Tunneling No No -Circular Undermining No No -Wound/Ulcer Outcome Not Healed Not Healed -Ulcer Cleansing Rinsed/ Rinsed/ Irrigated with Irrigated with Saline Saline -Foul Odor after Cleansing No No -Bioengineered Tissue No No -Bleeding Controlled with Pressure Pressure -Treatment Response Procedure Procedure Tolerated Well Tolerated Well -Offloading No No -Debridement - Subq, 1st 20sq cm Yes Yes Pain Scale: 0-10 Numeric Is Patient Pain Free? Yes Yes - Nurse 3 - General Ulcer D/C NN Start: 09/04/23 13:18 Freq: Status: Active Protocol: Activity Type Activity Date Activity User E-sign Co-sign Detail Recorded Client Recorded Date Recorded By Document 09/04/23 13:32 Desktop 09/04/23 13:35 Document 09/11/23 13:48 NR Desktop 09/11/23 13:51 NR Document 09/18/23 13:40 RB Desktop 09/18/23 13:41 RB 09/04/23 09/11/23 09/18/23 13:32 13:48 13:40 Wound Care Center Nurse 3 4. R hallux -Ulcer Cleansing Not Cleansed Rinsed/ betadine to Irrigated with periulcer Saline -Foul Odor after Cleansing No No -Negative Pressure Wound Therapy N/A -Primary Dressing Applied Promogran Promogran Promogran Allyn Matter Allyn Matter Allyn Matter -Other Dressing Betadine to megan-wound, Coban to secure -Primary Dressing Covered/Secured with Dry Gauze & Dry Gauze & Roll Gauze, Roll Gauze, Secured with Secured with Tape Tape -Promogran Allyn Matter 1 1 1 Treatment Response Procedure Tolerated Well Pain Scale: 0-10 Numeric Is Patient Pain Free? Yes Yes Yes Teaching: Wound Center Dressing Your Wound -Person Taught Patient Patient -Teaching Method Discussion, Discussion, Demonstration Demonstration -Response to teaching Verbalize Verbalize understanding understanding WC - Visit Discharge Discharge Condition Stable Stable Stable Ambulatory Status Ambulatory Ambulatory Ambulatory Transportation Private Auto Private Auto Private Auto Accompanied by Self Medication Reconcilliation completed & Yes Yes No provided to patient/care provider Clinical Summary of Care Provided Yes Yes Yes Assessment/Plan Assessment/Plan (1) Diabetic ulcer of foot associated with diabetes mellitus due to underlying condition, limited to breakdown of skin: CODE(S): E08.621 - Diabetes mellitus due to underlying condition with foot ulcer; L97.501 - Non-pressure chronic ulcer of other part of unspecified foot limited to breakdown of skin QUALIFIERS: Diabetic foot ulcer location: toe Laterality: left Qualified Code(s): E08.621 - Diabetes mellitus due to underlying condition with foot ulcer; L97.521 - Non-pressure chronic ulcer of other part of left foot limited to breakdown of skin PLAN: Patient was examined evaluated. All findings were discussed with the patient. All questions were answered to the patient satisfaction. Excisional excisional debridement down to including subcutaneous tissue of the full-thickness ulceration of the right hallux with number 5 mm curette without incident. Predebridement measurements 0.4 x 0.3 x 0.1 cm. Postdebridement measurements are 0.5 x 0.4 x 0.1 cm. Ulceration dressed with Allyn, Betadine paint and sterile Band-Aid. Patient is to change her dressing daily. She is to continue to check her blood sugar and continue strict I's and control. She will follow-up with her primary doctor as well as validation specialist continue to regulate her blood sugar. Once the patient shows an A1c of 9 or lower we will move forward with first metatarsophalangeal joint arthrodesis and IPJ arthroplasty to the right foot. She understands all risk and benefits. Follow-up in 1 week. 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
== END 2023-09-26 23:59 | disposition home or self-care (01) ==
LOC: WC 13:00
PROVIDERS: PCP Student in an Organized Health Care Education/Training Program; Referring Provider Student in an Organized Health Care Education/Training Program; Visit Provider Podiatrist Foot & Ankle Surgery
DX: E11.621 Type 2 diabetes mellitus with foot ulcer (principal); L97.512 Non-pressure chronic ulcer of other part of right foot with fat layer exposed; E11.649 Type 2 diabetes mellitus with hypoglycemia without coma; E11.42 Type 2 diabetes mellitus with diabetic polyneuropathy; E11.65 Type 2 diabetes mellitus with hyperglycemia; Z79.4 Long term (current) use of insulin; M20.21 Hallux rigidus, right foot; R68.83 Chills (without fever); R11.2 Nausea with vomiting, unspecified; Z79.82 Long term (current) use of aspirin; Z79.899 Other long term (current) drug therapy
CPT/HCPCS: 11042; 82962

== ENCOUNTER 2023-09-20 08:33 | Inpatient (IN) | payer OTHER, SELFPAY ==
[2023-09-20] VITALS (18 sets, daily range): BP systolic 104–140; BP diastolic 59–79; PULSE 72–755; RESP 11–23; TEMP 35.1–36.6; O2SAT 92–100; BMI 35.2
[2023-09-20 08:57] LABS: Absolute Lymphocyte Count 1.79 X10^3/uL (0.83-4.51); Absolute Neutrophil Count 3.2 X10^3/uL (2.0-7.7); Basophil# 0.07 X10^3/uL; Basophil% 1.3 % (0-1); Eosinophil# 0.04 X10^3/uL; Eosinophils% 0.8 % (0-5); Hematocrit 33.8 % (37-47); Hemoglobin 10.8 g/dL (12.0-15.0); Lymphocyte # 1.79 X10^3/ul (0.83-4.51); Lymphocyte % 33.6 % (19-41); Mean Corpuscular Hgb 29.3 pg (27.0-32.0); Mean Corpuscular Volume 91.6 fL (81-99); Mean Platelet Vol. 10.7 fl (6.2-12.0); Monocyte# 0.16 X10^3/uL; NRBC Flagged by Analyzer 0 % (0-5); Neutrophil # 3.23 X10^3/uL (2.7-7.7); Neutrophil % 60.7 % (47-70); Platelet Count 290 K/mm3 (150-450); RBC Distribution Width CV 15.4 % (11.6-14.6); RBC Distribution Width SD 50.9 fl (35.1-43.9); Red Blood Count 3.69 M/mm3 (4.2-5.4); White Blood Count 5.3 K/mm3 (4.4-11.0)
[2023-09-20] MEDS: 0.9% Normal Saline (1000mL) 1,000 ML 999 ML IV ×2 (09:00→10:47)
[2023-09-20 09:03] LABS: Bedside Glucose > 500 mg/dL (74-106)
--- NOTE | 2023-09-20 09:20 | EX.ED.DYSGE1 ---
HPI History of Present Illness Chief Complaint: Hyperglycemia Detail of Chief Complaint: Nausea and vomiting and high blood sugar Informant: patient Onset/Context/Timing Onset: Days Context: Sudden Onset Timing: Continuous Quality: Symptoms of hyperglycemia and nausea and vomiting Location: Endocrine and GI Current Severity: Moderate Maximum Severity: Moderate Worsened by: Unknown Relieved by: Nothing Associated Symptoms Associated Symptoms: Polyuria, polydipsia, nocturia and dry mouth. Narrative Narrative: Patient is a 53-year-old woman who has type 1 diabetes not type 2 diabetes. She states she has been compliant with her insulin. She administered 35 units this morning. She denies fever, chills or night sweats. She denies headache. She denies visual, ocular or auditory symptoms. She denies chest discomfort, shortness of breath. She did report dyspnea with activity the past 24 to 48 hours. She states she has history of nausea and vomiting unknown etiology. She is scheduled to have endoscopy performed by Dr. Curtis. Review of records indicates she has history of diabetic gastroparesis. She also has history of pancreatic pseudocyst. Patient denies abdominal pain. Patient denies flank pain. Patient denies dysuria or hematuria. Patient denies rash. She does endorse swelling of her feet. She has been less active. Review of prior records indicates she has had diabetic foot ulcers. Prior similar symptoms: Yes Recent Illness/Hospitalization: No PFSH PFSH Medical History Acute necrosis of pancreas Alcohol use Allergies Anemia Anemia in chronic kidney disease Anxiety Arthritis Atrial fibrillation Back problem Bipolar disorder with moderate depression Chronic diastolic (congestive) heart failure COVID Depression Diabetes mellitus with microalbuminuria, with long-term current use of insulin Diabetic foot ulcer associated with type 2 diabetes mellitus Diabetic neuropathy Dietary restriction Dilated bile duct Dyslipidemia Excessive bleeding Gastritis Gastroparesis due to secondary diabetes GERD (gastroesophageal reflux disease) Hallux valgus History of cardiac murmur History of edema History of gastroscopy History of renal disease HTN (hypertension) Hyperlipidemia Hypersomnia Insulin dependent diabetes mellitus Leg cramps Liver disease Low back pain Lumbar degenerative disc disease Lumbar facet arthropathy Migraine Nasal lesion Neck mass Non-alcoholic cirrhosis LANA (obstructive sleep apnea) Palpitations Pancreatitis Peripheral edema Pleural effusion Shortness of breath on exertion Sleep apnea Thyromegaly Tubular adenoma of colon Urinary retention Vitamin deficiency Wears glasses Wears partial dentures Home Medications pantoprazole 40 mg tablet,delayed release 40 mg PO DAILY gerd 08/03/22 [History Last Taken 09/19/23] nitroglycerin 0.4 mg sublingual tablet 0.4 mg sublingual Q5M angina 07/10/23 [History Last Taken Unknown] escitalopram oxalate 10 mg tablet 20 mg PO DAILY 07/31/23 [History Last Taken 09/19/23] prochlorperazine maleate 10 mg tablet 10 mg PO Q6H PRN nausea and vomiting #30 tabs 09/16/23 [Rx Last Taken 09/20/23] duloxetine 30 mg capsule,delayed release 30 mg PO DAILY 09/20/23 [History Last Taken 09/19/23] hydroxyzine pamoate 50 mg capsule 50 mg PO DAILY 09/20/23 [History Last Taken 09/19/23] insulin lispro 100 unit/mL subcutaneous solution 35 unit subcut BID 09/20/23 [History Last Taken 09/20/23] lidocaine 5 % topical patch 1 patch topical Q24H 09/20/23 [History Last Taken 09/19/23] Allergy/AdvReac Type Severity Reaction Status Date / Time lactase [From Dairy Aid] Allergy Severe diarrhea Verified 08/30/23 11:05 codeine Allergy Intermediate mental Verified 08/30/23 11:05 status diphenhydramine Allergy Intermediate mental Verified 08/30/23 11:05 [From Benadryl Allergy] status quetiapine [From Seroquel] Allergy Intermediate about Verified 08/30/23 11:05 killed me - went into DKA morphine Allergy Other Verified 08/30/23 11:05 Family History Mother Arthritis Depression Diabetes Father Arthritis Cancer Melanoma Diabetes Kidney disease Brother Arthritis Hypoglycemia Grandfather Myocardial infarction Grandmother Diabetes Surgical History H/O cardiac catheterization H/O gastric bypass History of esophagogastroduodenoscopy (EGD) History of hysterectomy Hx of colonoscopy Social History Smoking Status: Never smoker alcohol intake: current diet: diabetic and lactose free ROS ROS ED Constitutional Constitutional ED: Denies chills, fever(s), subjective, sweats or weight loss Eyes Eyes: Reports blurry vision bilateral; Denies change in vision or diplopia ENT ENT ED: Denies ear pain, rhinorrhea or sore throat Cardiovascular Cardiovascular: Denies chest pain, orthopnea, palpitations, paroxysmal nocturnal dyspnea or racing heartbeat Respiratory/Chest Respiratory/Chest: Reports dyspnea on exertion; Denies cough, dyspnea, orthopnea, paroxysmal nocturnal dyspnea or sputum Gastrointestinal Gastrointestinal: Reports nausea and other Details: Denies blood in emesis or coffee-ground appearance to emesis. ; Denies abdominal pain, constipation, melena or vomiting Genitourinary Genitourinary ED: Reports urinary frequency; Denies dysuria or hematuria Musculoskeletal Musculoskeletal: Denies arthralgias, back pain, myalgias or neck pain Integumentary Denies rash Neurologic Neurologic: Reports weakness; Denies headache(s) or paresthesias Psychiatric Psychiatric: Reports anxiety Endocrine Endocrinology: Reports polydipsia and polyuria; Denies cold intolerance or heat intolerance Hematologic/Lymphatic Hematologic/Lymphatic: Reports systems reviewed and no addt'l complaints, except as documented EXAM Physical Exam Const Vital Signs: 09/20/23 08:34 09/20/23 08:57 Temperature 95.2 F L Temperature Source Temporal Pulse Rate 108 H Respiratory Rate 20 H Respiratory Effort Normal Non-Labored Respiratory Pattern Normal Blood Pressure 140/77 H Blood Pressure Mean 98 Pulse Ox 100 Oxygen Delivery Method Room Air Positive well nourished, well developed and obese General Appearance ED: well developed, NAD and pallor; Negative for cyanotic or diaphoretic Nutritional Appearance: obese HEENT Reports dry mucous membranes HEENT Narrative: Head is atraumatic and normocephalic. Ears are normal. Posterior pharynx is normal Mouth ED: Yes dry mucous membranes Mouth: dry mucous membranes Eyes PERRL and EOMs intact bilaterally General Eye ED: Negative for pale conjunctiva or scleral icterus Neck no lymphadenopathy, supple and no JVD Resp normal respiratory effort and clear to auscultation bilaterally Cardio regular rhythm, S1 normal heart sound, S2 normal heart sound and no murmurs Rate: tachycardic GI normal to inspection, nondistended, normoactive bowel sounds, non-tender, non-distended and no masses; Negative for hepatosplenomegaly Palpation: soft Back/Spine no CVA tenderness Back/Spine Narrative: Inspection of the back is normal other than numerous tattoos. Thoracic Spine / Upper Back: Negative for thoracic spinal tenderness Lumbar Spine / Lower Back: Negative for lumbar spinal tenderness Extremity normal to inspection Extremity Narrative: Does have a healing wound medial plantar surface of the right great toe. There is no erythema, warmth, induration, fluctuance or lymphangitis. General Extremety ED: Yes edema; Negative for tenderness General Extremity: edema Neuro oriented x3, CN's II-XII intact bilaterally and no sensory deficits noted Sensorium / Orientation: alert Motor Exam: strength 5/5 throughout Psych mental status grossly normal Skin no rashes or lesions noted, no wounds and skin turgor normal General Skin Exam: pallor; Negative for jaundice MDM MDM MDM Narrative Medical decision making narrative: With elevated blood sugars we will obtain BGT and initiate order set for DKA. Blood sugar was greater than 500. EKG was obtained because of complaint of dyspnea on exertion to evaluate for any cardiac ischemia. UA was obtained to assess for evidence of infection. Since patient does not appear pale and has history of anemia per old records CBC was obtained and to assess white count differential. Because of the history of stage III kidney disease with nausea vomiting and difficulty keeping anything down comprehensive metabolic panel was obtained to assess renal function, glucose as well as CO2 anion gap. Patient will receive 1 L of normal saline. History & Record Review Additional record(s) reviewed:: Prior inpatient record (Patient was admitted July for DKA and renal injury.), Prior outpatient record (Dietary notes were assessed for the diabetic foot ulcer.), Prior ED visit and Prior labs Lab Data Attestation: I reviewed the patient's lab results. Lab results narrative: Is 895. Anion gap is 25 with a CO2 of 17. Patient has pseudohyponatremia with a sodium of 129. BUN and creatinine are 18 and 2.14. This is approximately baseline. Serum was positive for large ketones. Labs: Laboratory Results - last 24 hr 09/20/23 09/20/23 09/20/23 08:41 08:47 10:30 WBC 5.3 RBC 3.69 L Hgb 10.8 L Hct 33.8 L MCV 91.6 MCH 29.3 MCHC 32.0 RDW Std Deviation 50.9 H RDW Coeff of Ilene 15.4 H Plt Count 290 MPV 10.7 Immature Gran % (Auto) 0.600 Neut % (Auto) 60.7 Lymph % (Auto) 33.6 [place] % (Auto) 3.0 Eos % (Auto) 0.8 Baso % (Auto) 1.3 H Absolute Neuts (auto) 3.2 Absolute Lymphs (auto) 1.79 Nucleated RBC % 0 Sodium 129 L Potassium 2.7 L* Chloride 87 L Carbon Dioxide 17.0 L Anion Gap 25 H BUN 18 Creatinine 2.14 H Estim Creat Clear Calc 33.25 Est GFR (MDRD) Af Amer 31 L Est GFR (MDRD) Non-Af 26 L BUN/Creatinine Ratio 8.4 L Glucose 895 H* Calcium 8.8 Urine Color Yellow Urine Clarity Clear Urine pH 6.0 Ur Specific [place] 1.010 Urine Protein Negative Urine Glucose (UA) 1000 H Urine Ketones 150 A* Urine Occult Blood Negative Urine Nitrite Negative Urine Bilirubin Negative Urine Urobilinogen Normal Ur Leukocyte Esterase Negative Acetone Level LARGE H POC Glucose > 500 H* Radiography Chest X-Ray - ED: 2 View and Read by ED Physician (2 view chest x-ray reveals normal cardiac silhouette and size. Lung parenchyma is normal. Perihilar regions normal. Osseous structures are unremarkable. This independent reviewed interpreted by me at 0954.) EKG Initial EKG: Attestation: I personally reviewed and interpreted this EKG as follows: Interpretation: Sinus Rhythm (Rate is 85. NE interval is 186 ms. Cures duration 98 ms. QT duration 262 ms. [place] is normal. There is no acute ischemic changes noted.) Treatment and Re-Evaluation :: Informed by nurse that patient's blood sugars 895. Potassium is 2.7. Labs are not available for review at this point. Will order an additional liter of normal saline and p.o. potassium. Since patient CO2 was low and anion gap is high she was started on insulin. Critical Care Time Critical Care Time: Yes Critical care time (excluding procedures): 30-74 minutes (33), Including time spent: (History, physical, documentation, review of prior records, independent interpretation of images, EKG and laboratory studies and initiation of treatment for DKA), Discussing w/Patient &/or Family/Scrubber Operator, Discussing w/Consultants and Arranging Admission or Transfer Discharge Plan Dx/Rx/DC Orders Clinical Impression: Diabetic ketoacidosis associated with type 1 diabetes mellitus, Anemia in chronic kidney disease, Stage 3 chronic kidney disease due to type 2 diabetes mellitus, Benign essential hypertension, Mixed hyperlipidemia, Obesity, Acute hypokalemia Disposition Disposition: Acute Care Hospital [facility]
[2023-09-20 09:53] LABS: Anion Gap 25 (5-15); BUN 18 mg/dL (7-18); BUN/Creat Ratio 8.4 RATIO (10-20); Calcium,Total 8.8 mg/dL (8.5-10.1); Chloride 87 mmol/L (98-107); Creatinine, Serum 2.14 mg/dL (0.55-1.02); EST Glomerular Filtration Rate 26 mL/min (>60); Est Glom Filt Rate - Afr Amer 31 mL/min (>60); Estimated Creatinine Clearance 33.25 ml/min; Glucose 895 mg/dL (74-106); Potassium 2.7 mmol/L (3.5-5.1); Sodium Level 129 mmol/L (136-145)
--- NOTE | 2023-09-20 10:26 | PCM.HP.STD ---
HPI - General General Date of Admission: 09/20/23 Date of Service: 09/20/23 Chief Complaint: Patient has been nauseated and vomiting for several days. Feels very weak, describes total wreck HPI Narrative KORI SHEPHERD, is a 53 F with history of type 1 diabetes mellitus came to ED for feeling very dehydrated, nausea vomiting and very weak. Patient was treated she has nausea vomiting for about several days. She has mild dyspnea on exertion otherwise denies chest discomfort or shortness of breath. She feels mild lightheaded on walking due to weakness. Denies fever, burning micturition/acute cough or URI symptoms. Patient has chronic small healing wound with scab on right great toe. In ED, labs reviewed and consistent with DKA. Vitals labs reviewed and discussed in assessment plan. Correction: She has history of type 1 diabetes mellitus not type 2 diabetes mellitus as listed in past medical history. [facility] Medical History Acute necrosis of pancreas Alcohol use Allergies Anemia Anemia in chronic kidney disease Anxiety Arthritis Atrial fibrillation Back problem Bipolar disorder with moderate depression Chronic diastolic (congestive) heart failure COVID Depression Diabetes mellitus with microalbuminuria, with long-term current use of insulin Diabetic foot ulcer associated with type 2 diabetes mellitus Diabetic neuropathy Dietary restriction Dilated bile duct Dyslipidemia Excessive bleeding Gastritis Gastroparesis due to secondary diabetes GERD (gastroesophageal reflux disease) Hallux valgus History of cardiac murmur History of edema History of gastroscopy History of renal disease HTN (hypertension) Hyperlipidemia Hypersomnia Insulin dependent diabetes mellitus Leg cramps Liver disease Low back pain Lumbar degenerative disc disease Lumbar facet arthropathy Migraine Nasal lesion Neck mass Non-alcoholic cirrhosis LANA (obstructive sleep apnea) Palpitations Pancreatitis Peripheral edema Pleural effusion Shortness of breath on exertion Sleep apnea Thyromegaly Tubular adenoma of colon Urinary retention Vitamin deficiency Wears glasses Wears partial dentures Home Medications pantoprazole 40 mg tablet,delayed release 40 mg PO DAILY gerd 08/03/22 [History Last Taken 09/19/23] nitroglycerin 0.4 mg sublingual tablet 0.4 mg sublingual Q5M angina 07/10/23 [History Last Taken Unknown] escitalopram oxalate 10 mg tablet 20 mg PO DAILY 07/31/23 [History Last Taken 09/19/23] prochlorperazine maleate 10 mg tablet 10 mg PO Q6H PRN nausea and vomiting #30 tabs 11/20/23 [Rx Last Taken 09/20/23] duloxetine 30 mg capsule,delayed release 30 mg PO DAILY 09/20/23 [History Last Taken 09/19/23] hydroxyzine pamoate 50 mg capsule 50 mg PO DAILY 09/20/23 [History Last Taken 09/19/23] insulin lispro 100 unit/mL subcutaneous solution 35 unit subcut BID 09/20/23 [History Last Taken 09/20/23] lidocaine 5 % topical patch 1 patch topical Q24H 09/20/23 [History Last Taken 09/19/23] Allergy/AdvReac Type Severity Reaction Status Date / Time lactase [From Dairy Aid] Allergy Severe diarrhea Verified 09/20/23 10:57 codeine Allergy Intermediate mental Verified 09/20/23 10:57 status diphenhydramine Allergy Intermediate mental Verified 09/20/23 10:57 [From Benadryl Allergy] status quetiapine [From Seroquel] Allergy Intermediate about Verified 09/20/23 10:57 killed me - went into DKA morphine Allergy Other Verified 09/20/23 10:57 Family History Mother Arthritis Depression Diabetes Father Arthritis Cancer Melanoma Diabetes Kidney disease Brother Arthritis Hypoglycemia Grandfather Myocardial infarction Grandmother Diabetes Surgical History H/O cardiac catheterization H/O gastric bypass History of esophagogastroduodenoscopy (EGD) History of hysterectomy Hx of colonoscopy Social History Smoking Status: Never smoker alcohol intake: current diet: diabetic and lactose free ROS ROS Narrative Constitutional: Reports severe fatigue and weakness. No fever. HEENT: Reports systems reviewed and no addt'l complaints, except as documented Respiratory/Chest: No acute shortness of breath or respiratory distress or wheezing. Dyspnea on exertion CVS: No chest pain pressure tightness. Gastrointestinal: Nausea and vomiting. Denies coffee ground emesis, hematemesis or vomiting Genitourinary: Denies burning urination or new urinary tract symptoms Musculoskeletal: Denies acute joint pain or limited range of motion. No acute injury Neurologic: Denies seizure-like symptoms. Has chronic migraine headache. skin: No ulcer. No rash Endocrinology: Type I DM. Reports systems reviewed and no addt'l complaints, except as documented Hematologic/Lymphatic: Chronic anemia. No external bleeding. Had iron infusion as an outpatient. Reports systems reviewed and no addt'l complaints, except as documented Rest 14 ROS are negative except as mentioned in HPI Vital Signs Vital Signs Vital Signs: 09/20/23 08:34 09/20/23 08:57 Temperature 95.2 F L Temperature Source Temporal Pulse Rate 108 H Respiratory Rate 20 H Respiratory Effort Normal Non-Labored Respiratory Pattern Normal Blood Pressure 140/77 H Blood Pressure Mean 98 Pulse Ox 100 Oxygen Delivery Method Room Air Weight Weight: 245 lb 1.6 oz Body Mass Index (BMI) 35.2 Physical Exam Narrative General: Alert, Oriented x3, Cooperative, pale and fatigue HEENT: Atraumatic, PERRLA, EOMI, Normocephalic Oral: Oral mucosa dry. No Gingival or Mucosal Lesions/ Ulcerations Neck: Supple, No JVD, Negative Carotid Bruits Lungs: Air entry diminished in bilateral lung bases. No crepitation/rhonchi Cardiovascular: Regular rate, Regular Rhythm, Normal S1, Normal S2, No murmurs Abdomen: Bowel Sounds Present, Soft, Non Tender, Non-Distended : No renal angle tenderness. No suprapubic tenderness. Extremities: No edema, Capillary Refill Less than 3 Seconds Skin: Small dry healing ulcer with a scab on tip of right great toe Musculoskeletal: No Tenderness to Palpation of Joints or Extremities Neurological: Cranial nerves II-XII grossly intact, DTR 2+/4. No acute focal neurological deficit. Psych/Mental Status: Flat affect. Results Lab / Micro Data 09/20/23 08:47 09/20/23 13:20 Labs: Laboratory Results - last 24 hr 09/20/23 08:41: POC Glucose > 500 H* 09/20/23 08:47: WBC 5.3, RBC 3.69 L, Hgb 10.8 L, Hct 33.8 L, MCV 91.6, MCH 29.3, MCHC 32.0, RDW Std Deviation 50.9 H, RDW Coeff of Ilene 15.4 H, Plt Count 290, MPV 10.7, Immature Gran % (Auto) 0.600, Neut % (Auto) 60.7, Lymph % (Auto) 33.6, Door % (Auto) 3.0, Eos % (Auto) 0.8, Baso % (Auto) 1.3 H, Absolute Neuts (auto) 3.2, Absolute Lymphs (auto) 1.79, Nucleated RBC % 0, Sodium 129 L, Potassium 2.7 L*, Chloride 87 L, Carbon Dioxide 17.0 L, Anion Gap 25 H, BUN 18, Creatinine 2.14 H, Estim Creat Clear Calc 33.25, Est GFR (MDRD) Af Amer 31 L, Est GFR (MDRD) Non-Af 26 L, BUN/Creatinine Ratio 8.4 L, Glucose 895 H*, Calcium 8.8, Acetone Level LARGE H Assessment & Plan Assessment/Plan (1) Diabetic ketoacidosis associated with type 1 diabetes mellitus: QUALIFIERS: Diabetes mellitus complication detail: without coma Qualified Code(s): E10.10 - Type 1 diabetes mellitus with ketoacidosis without coma (2) Acute hypokalemia: PLAN: Plan This 53-year-old female with history of type 1 diabetes mellitus came to ED very weak, fatigue, nausea and vomiting for several days with lab consistent with DKA. 1. DKA with history of type I DM without coma with high anion gap metabolic acidosis: Patient is being admitted in ICU. Vigorous IV fluid resuscitation as per DKA protocol. She got 3 L of IV fluid normal saline. Initially her glucose was 895, serum osmolality 338 but with insulin given in the ED, it sounds decreased to 157. As per protocol D5 half NS at 250 mill per hour. Monitor BMP q. 7 hourly and if anion gap closed x2 will do overlap of insulin drip with subcutaneous Lantus insulin. VBG shows P7.44, mixed PCO2 26. She was last admitted in August 21, 2023 for DKA. 2. Severe hypokalemia, hyponatremia: Potassium 2.7. Anion gap 25, bicarb 17 sodium 129. Patient has hypertonic hypovolemic hyponatremia from hyperglycemia. Serum magnesium and phosphorus level normal. Liver chemistry shows elevated alkaline phosphatase, hypoalbuminemia. 3. Right full-thickness ulceration of big toe: Patient follows with Dr. Chandrakant Hernandez. There is healing with a scab. No discharge. She was told that if she gets admitted, let director inpatient headache program to know and will see her. Straight Slicing Machine Operator is consulted. Dry dressing. 4. Type 1 diabetes mellitus complicated with diabetic neuropathy: See said she is supposed to get insulin pump and glucose sensor Docu. Her last echo in July 2023 EF 60% of the systolic function normal. Structurally normal valves. 5. MITCHELL mainly prerenal from hypovolemia: BUNs/creatinine 18/2.14. Patient had MITCHELL during previous admission. 6. Chronic anemia: H&H 10.8/33.8. Platelet count 290. MCV MCH MCHC normal. RDW elevated. She gets iron infusion as an outpatient and follows Dr. Crespo, she recently had iron work-up in July 2023 which shows low iron, TIBC normal, low iron saturation 11.3%. Ferritin 105. Iron infusion ordered for tomorrow AM.B12 and folic acid also normal. DVT prophylaxis: High risk: Lovenox 30 mg subcu daily. Multiple comorbidities include GERD, hypertension, history of migraine, insomnia LANA, nonadherent to CPAP, dyslipidemia: Currently patient is n.p.o. Home medications can be resumed when she is made oral. Living will/advanced directive/end of life care: Patient does not have living will or advanced directive. Her is next to kin. After discussion of benefits/risks procedures involved with full code, DNR CC arrest and DNR CC, the patient opted for full code. Patient does want artificial life support including intubation, tube feed, ventilator and/chest compression, central venous catheter, vasopressor and DC shock if needed Total time spent in [id number] encounter in discussion of advanced directive 17 minutes. Laboratory Results 09/20/23 08:41: POC Glucose > 500 H* 09/20/23 08:47: WBC 5.3, RBC 3.69 L, Hgb 10.8 L, Hct 33.8 L, MCV 91.6, MCH 29.3, MCHC 32.0, RDW Std Deviation 50.9 H, RDW Coeff of Ilene 15.4 H, Plt Count 290, MPV 10.7, Immature Gran % (Auto) 0.600, Neut % (Auto) 60.7, Lymph % (Auto) 33.6, Door % (Auto) 3.0, Eos % (Auto) 0.8, Baso % (Auto) 1.3 H, Absolute Neuts (auto) 3.2, Absolute Lymphs (auto) 1.79, Nucleated RBC % 0, Sodium 129 L 11/24/23 08:47: Sodium Cancelled, Potassium 2.7 L* 09/20/23 08:47: Potassium Cancelled, Chloride 87 L 09/20/23 08:47: Chloride Cancelled, Carbon Dioxide 17.0 L 09/20/23 08:47: Carbon Dioxide Cancelled, Anion Gap 25 H 09/20/23 08:47: Anion Gap Cancelled, BUN 18 09/20/23 08:47: BUN Cancelled, Creatinine 2.14 H 09/20/23 08:47: Creatinine Cancelled, Estim Creat Clear Calc 33.25, Est GFR (MDRD) Af Amer 31 L 09/20/23 08:47: Est GFR (MDRD) Af Amer Cancelled, Est GFR (MDRD) Non-Af 26 L 09/20/23 08:47: Est GFR (MDRD) Non-Af Cancelled, BUN/Creatinine Ratio 8.4 L 09/20/23 08:47: BUN/Creatinine Ratio Cancelled, Glucose 895 H* 09/20/23 08:47: Glucose Cancelled, Serum Osmolality 338 H, Calcium 8.8 09/20/23 08:47: Calcium Cancelled, Phosphorus 4.0, Magnesium 2.2, Total Bilirubin 0.50, Direct Bilirubin 0.14, AST 18, ALT 26, Alkaline Phosphatase 164 H, Total Protein 7.6, Albumin 3.1 L, Globulin 4.5 H, Acetone Level LARGE H 09/20/23 10:30: Urine Color Yellow, Urine Clarity Clear, Urine pH 6.0, Ur Specific [place] 1.010, Urine Protein Negative, Urine Glucose (UA) 1000 H, Urine Ketones 150 A*, Urine Occult Blood Negative, Urine Nitrite Negative, Urine Bilirubin Negative, Urine Urobilinogen Normal, Ur Leukocyte Esterase Negative, Urine RBC 0 SEEN, Urine WBC 0 SEEN, Ur Squamous Epith Cells 0-5 SEEN, Urine Bacteria 0 SEEN, Urine Mucus 0 SEEN, Urine Test Negative 09/20/23 11:54: POC Glucose 378 H 09/20/23 12:57: POC Glucose 252 H 09/20/23 13:20: Sodium 137, Potassium 3.5, Chloride 100, Carbon Dioxide 19.0 L, Anion Gap 18 H, BUN 15, Creatinine 1.71 H, Estim Creat Clear Calc 41.62, Est GFR (MDRD) Af Amer 40 L, Est GFR (MDRD) Non-Af 33 L, BUN/Creatinine Ratio 8.8 L, Glucose 228 H, Calcium 8.8 09/20/23 13:33: Specimen Type LETTY, Sample Site Not entered, VBG pH 7.44 H, VBG pO2 145 H, VBG HCO3 18 L, VBG Total CO2 19 L, VBG O2 Sat (Calc) 99 H, VBG Base Excess -6 L, POC Mix VBG pCO2 Pt Tmp 26.2 L, O2 Delivery Device Not entered 09/20/23 14:04: POC Glucose 157 H Charges/Coding Visit Charges Inpatient E&M: 03840 Init Hosp L3 Procedures Hospitalists Procedures: 56238 Advncd Care Plan 30 Min
[2023-09-20 10:33] LABS: Bacteria 0 SEEN /hpf (None Seen); Mucous, Urine 0 SEEN /hpf (<or=2+); Red Blood Cells-Urine 0 SEEN /hpf (0-5); White Blood Cells 0 SEEN /hpf (0-5)
[2023-09-20 10:35] LABS: Color, Urine Yellow (Yellow); Glucose, Dipstick 1000 mg/dl (Normal); Leukocyte Esterase-Dipstick Negative /ul (Negative); Nitrite-Dipstick Negative (Negative); Occult Blood-Urine Negative /ul (Negative); Protein-Dipstick Negative (Negative); Urine Bilirubin Dipstick Negative (Negative); Urine Clarity Clear (Clear); Urine Urobilinogen Normal (Normal)
[2023-09-20 10:37] LABS: Ketone-Dipstick 150 mg/dl (Negative)
[2023-09-20 10:41] LABS: Squamous Epithelial Cells - UA 0-5 SEEN /hpf (5-10)
[2023-09-20] MEDS: Potassium Chloride Oral Soln 20 MEQ/15 ML UDC 40 MEQ PO ×3 (10:45→22:59)
[2023-09-20] MEDS: Insulin Lispro 100 UNIT in 0.9% Normal Saline (100mL Bag) 99 ML 11 UNIT CONT INF (10:46)
[2023-09-20 10:48] LABS: Internal QC Validated? YES +Cl - CLEAR BKGD; Pregnancy, Urine Negative Negative
[2023-09-20 10:51] LABS: Osmolality, Serum 338 mOsm/KG (275-295)
[2023-09-20 11:11] LABS: AST(SGOT) 18 U/L (15-37); Alanine Aminotransfer ALT/SGPT 26 U/L (13-56); Albumin, Serum 3.1 g/dL (3.2-5.0); Alkaline Phosphatase 164 U/L (45-117); Bilirubin, Direct 0.14 mg/dL (0.00-0.30); Globulin 4.5 g/dL (2.2-4.2); Magnesium 2.2 mg/dL (1.6-2.6); Protein, Total 7.6 g/dL (6.4-8.2)
[2023-09-20] MEDS: 0.9% Normal Saline (1000mL) 1,000 ML 500 ML IV (11:59)
[2023-09-20] MEDS: Potassium Chloride 10mEq/100mL 10 MEQ/100 ML IV.SOLN. 100 MEQ IV BOLUS ×4 (12:12→16:50)
[2023-09-20] MEDS: 0.9% Normal Saline (250mL Bag) 250 ML 15 ML IV (12:12)
[2023-09-20 12:18] LABS: Bedside Glucose 378 mg/dL (74-106)
[2023-09-20 13:20] LABS: Bedside Glucose 252 mg/dL (74-106)
[2023-09-20 13:36] LABS: Blood Gas Specimen Type VEN; O2 Delivery Device Not entered; SITE Not entered; VBG BASE EXCESS -6 mmol/L (-1.0-3.5); VBG Bicarbonate 18 mmol/L (22-26); VBG PO2 145 mmHg (25-40); VBG SO2 99 % (50-70); VBG TCO2 19 mmol/L (23-33); VBG pCO2 26.2 mmHg (41-51); VBG pH 7.44 (7.32-7.42)
[2023-09-20 14:11] LABS: Anion Gap 18 (5-15); BUN 15 mg/dL (7-18); BUN/Creat Ratio 8.8 RATIO (10-20); Calcium,Total 8.8 mg/dL (8.5-10.1); Chloride 100 mmol/L (98-107); Creatinine, Serum 1.71 mg/dL (0.55-1.02); EST Glomerular Filtration Rate 33 mL/min (>60); Est Glom Filt Rate - Afr Amer 40 mL/min (>60); Estimated Creatinine Clearance 41.62 ml/min; Glucose 228 mg/dL (74-106); Potassium 3.5 mmol/L (3.5-5.1); Sodium Level 137 mmol/L (136-145)
[2023-09-20] MEDS: Dext 5%-0.45% NS 1,000 ML 150 ML IV (14:16)
[2023-09-20 14:23] LABS: Bedside Glucose 157 mg/dL (74-106)
--- NOTE | 2023-09-20 14:38 | CHAPLAIN ---
Type of Pastoral Visit _x__ Initial Visit ___ Follow-up Visit ___ On-call Visit ___ General Patient Visit ___ Spiritual Assessment ___ Family Conference ___ Bereavement ___ Rapid Response ___ Code Blue ___ Other (describe below) Pastoral Care Referral From _x__ Patient ___ Family ___ Nurse ___ Physician ___ Certified Novell Engineer ___ Bow Repairer Custom ___ Other (describe below) Sacrament/Intervention _x__ Active listening ___ Anointing ___ Episcopal ___ Bereavement ___ Communion _x__ Dana exploration ___ _x__ Life review _x__ Prayer ___ Reconciliation ___ Sacrament of Sick _x__ Supportive presence ___ Wedding ___ Other (describe below) Pastoral Comments patient remembers this stem lead former from previous admissions; pt states that I wouldn't harm myself but I said some things that alarmed people I suppose; pt stated that comments were made in frustration about being better off ; pt stated that she did not mean anything be these statements and that I would not ever do that; pt suggests that there are some other stressors in her life; when asked about these the pt hesitates but continues with some concerns with family and work; pt acknowledges need for prayers and support that way
[2023-09-20] MEDS: proCHLORPERazine 10 MG/2 ML Vial 5 MG IV (15:00)
[2023-09-20] MEDS: 0.9% Saline Lock 10 ML Syringe IV (15:00)
[2023-09-20 15:27] LABS: Bedside Glucose 130 mg/dL (74-106)
[2023-09-20 16:33] LABS: Bedside Glucose 122 mg/dL (74-106)
[2023-09-20 16:38] LABS: Anion Gap 9 (5-15); BUN 15 mg/dL (7-18); BUN/Creat Ratio 10.4 RATIO (10-20); Calcium,Total 8.7 mg/dL (8.5-10.1); Chloride 102 mmol/L (98-107); Creatinine, Serum 1.44 mg/dL (0.55-1.02); EST Glomerular Filtration Rate 41 mL/min (>60); Est Glom Filt Rate - Afr Amer 49 mL/min (>60); Estimated Creatinine Clearance 49.42 ml/min; Glucose 132 mg/dL (74-106); Potassium 3.2 mmol/L (3.5-5.1); Sodium Level 138 mmol/L (136-145)
[2023-09-20 18:27] LABS: Bedside Glucose 101 mg/dL (74-106)
[2023-09-20 19:21] LABS: Bedside Glucose 123 mg/dL (74-106)
[2023-09-20] MEDS: Dext 5%-0.45% NS 1,000 ML 250 ML IV (19:36)
[2023-09-20 21:10] LABS: Bedside Glucose 160 mg/dL (74-106)
[2023-09-20 21:31] LABS: Anion Gap 6 (5-15); BUN 12 mg/dL (7-18); BUN/Creat Ratio 8.5 RATIO (10-20); Calcium,Total 8.5 mg/dL (8.5-10.1); Chloride 101 mmol/L (98-107); Creatinine, Serum 1.42 mg/dL (0.55-1.02); EST Glomerular Filtration Rate 41 mL/min (>60); Est Glom Filt Rate - Afr Amer 50 mL/min (>60); Estimated Creatinine Clearance 50.12 ml/min; Glucose 178 mg/dL (74-106); Potassium 3.3 mmol/L (3.5-5.1); Sodium Level 136 mmol/L (136-145)
[2023-09-20] MEDS: hydrOXYzine PAM 25 MG Capsule 50 MG PO (21:48)
[2023-09-20] MEDS: traZODone 100 MG Tablet 200 MG PO (21:48)
[2023-09-20 22:07] LABS: Bedside Glucose 135 mg/dL (74-106)
[2023-09-20] MEDS: Insulin Lispro 100 UNIT/ML INSULN.PEN 35 UNIT SC (23:00)
[2023-09-21] VITALS (15 sets, daily range): BP systolic 92–121; BP diastolic 56–78; PULSE 70–90; RESP 12–20; TEMP 36.6–36.9; O2SAT 96–100; BMI 36.3
[2023-09-21 05:24] LABS: Absolute Lymphocyte Count 3.17 X10^3/uL (0.83-4.51); Absolute Neutrophil Count 1.9 X10^3/uL (2.0-7.7); Basophil# 0.05 X10^3/uL; Basophil% 0.9 % (0-1); Eosinophil# 0.26 X10^3/uL; Eosinophils% 4.6 % (0-5); Hemoglobin 8.9 g/dL (12.0-15.0); Lymphocyte # 3.17 X10^3/ul (0.83-4.51); Mean Corpuscular Volume 87.9 fL (81-99); Mean Platelet Vol. 10.2 fl (6.2-12.0); Monocyte# 0.32 X10^3/uL; Monocyte% 5.7 % (0-10); NRBC Flagged by Analyzer 0.4 % (0-5); Neutrophil # 1.85 X10^3/uL (2.7-7.7); Neutrophil % 32.6 % (47-70); Platelet Count 204 K/mm3 (150-450); RBC Distribution Width CV 15.4 % (11.6-14.6); Red Blood Count 3.07 M/mm3 (4.2-5.4); White Blood Count 5.7 K/mm3 (4.4-11.0)
[2023-09-21 05:53] LABS: Anion Gap 6 (5-15); BUN 9 mg/dL (7-18); BUN/Creat Ratio 8.9 RATIO (10-20); Calcium,Total 8.3 mg/dL (8.5-10.1); Chloride 106 mmol/L (98-107); Creatinine, Serum 1.01 mg/dL (0.55-1.02); EST Glomerular Filtration Rate 61 mL/min (>60); Est Glom Filt Rate - Afr Amer 74 mL/min (>60); Estimated Creatinine Clearance 70.46 ml/min; Glucose 52 mg/dL (74-106); Magnesium 2.1 mg/dL (1.6-2.6); Phosphorus 1.4 mg/dL (2.5-4.9); Potassium 3.3 mmol/L (3.5-5.1); Sodium Level 140 mmol/L (136-145)
[2023-09-21 06:22] LABS: Bedside Glucose 45 mg/dL (74-106)
[2023-09-21] MEDS: Enoxaparin 30 MG/0.3 ML Syringe SC (06:33)
[2023-09-21 06:47] LABS: Bedside Glucose 58 mg/dL (74-106)
[2023-09-21 07:24] LABS: Bedside Glucose 86 mg/dL (74-106)
[2023-09-21 07:58] LABS: Hemoglobin A1c 12.6 % (3.8-5.6)
[2023-09-21] MEDS: Insulin Lispro 100 UNIT/ML INSULN.PEN 25 UNIT SC (08:37)
[2023-09-21 08:58] LABS: Bedside Glucose 113 mg/dL (74-106)
[2023-09-21] MEDS: 0.9% Saline Lock 10 ML Syringe IV (10:06)
[2023-09-21] MEDS: Sodium Ferric Gluconat/Sucrose 250 MG in 0.9% Normal Saline (250mL Bag) 250 ML 135 MG IV (10:06)
[2023-09-21] MEDS: Escitalopram Oxalate 20 MG Tablet PO (10:06)
[2023-09-21] MEDS: Pantoprazole Sodium 40 MG Tablet PO (10:06)
--- NOTE | 2023-09-21 10:11 | PCM.PN.HOSP ---
Reason for Visit Reason for Visit: Diagnoses Type 1 diabetes mellitus with ketoacidosis without coma (09/20/23) Hypokalemia (09/20/23) Objective Data Objective Data Vital Signs: Vital Signs Temp Pulse Resp BP Pulse Ox O2 Del Method 97.9 F 72 16 116/72 100 Room Air 09/21/23 08:00 09/21/23 09:00 09/21/23 09:00 09/21/23 09:00 09/21/23 08:00 09/21/23 08:00 Oxygen Delivery Method Room Air Weight: 253 lb 12.033 oz Body Mass Index (BMI) 36.3 Intake & Output: Intake and Output for Last 24 Hours 09/19/23 09/20/23 09/21/23 23:59 23:59 23:59 Intake Total 5879.22 / 5879.22 240 / 240 Balance 5879.22 / 5879.22 240 / 240 Lab / Micro Data 09/21/23 05:17 09/21/23 05:17 Labs: Laboratory Results - last 24 hr 09/20/23 08:47: Sodium Cancelled, Potassium Cancelled, Chloride Cancelled, Carbon Dioxide Cancelled, Anion Gap Cancelled, BUN Cancelled, Creatinine Cancelled, Est GFR (MDRD) Af Amer Cancelled, Est GFR (MDRD) Non-Af Cancelled, BUN/Creatinine Ratio Cancelled, Glucose Cancelled, Serum Osmolality 338 H, Calcium Cancelled, Phosphorus 4.0, Magnesium 2.2, Total Bilirubin 0.50, Direct Bilirubin 0.14, AST 18, ALT 26, Alkaline Phosphatase 164 H, Total Protein 7.6, Albumin 3.1 L, Globulin 4.5 H 09/20/23 10:30: Urine Color Yellow, Urine Clarity Clear, Urine pH 6.0, Ur Specific [place] 1.010, Urine Protein Negative, Urine Glucose (UA) 1000 H, Urine Ketones 150 A*, Urine Occult Blood Negative, Urine Nitrite Negative, Urine Bilirubin Negative, Urine Urobilinogen Normal, Ur Leukocyte Esterase Negative, Urine RBC 0 SEEN, Urine WBC 0 SEEN, Ur Squamous Epith Cells 0-5 SEEN, Urine Bacteria 0 SEEN, Urine Mucus 0 SEEN, Urine Test Negative 09/20/23 11:54: POC Glucose 378 H 09/20/23 12:57: POC Glucose 252 H 09/20/23 13:20: Sodium 137, Potassium 3.5, Chloride 100, Carbon Dioxide 19.0 L, Anion Gap 18 H, BUN 15, Creatinine 1.71 H, Estim Creat Clear Calc 41.62, Est GFR (MDRD) Af Amer 40 L, Est GFR (MDRD) Non-Af 33 L, BUN/Creatinine Ratio 8.8 L, Glucose 228 H, Calcium 8.8 09/20/23 14:04: POC Glucose 157 H 09/20/23 15:09: POC Glucose 130 H 09/20/23 16:11: POC Glucose 122 H 09/20/23 16:15: Sodium 138, Potassium 3.2 L, Chloride 102, Carbon Dioxide 27.0, Anion Gap 9, BUN 15, Creatinine 1.44 H, Estim Creat Clear Calc 49.42, Est GFR (MDRD) Af Amer 49 L, Est GFR (MDRD) Non-Af 41 L, BUN/Creatinine Ratio 10.4, Glucose 132 H, Calcium 8.7 09/20/23 18:08: POC Glucose 101 09/20/23 19:02: POC Glucose 123 H 09/20/23 20:49: POC Glucose 160 H 09/20/23 21:00: Sodium 136, Potassium 3.3 L, Chloride 101, Carbon Dioxide 29.0, Anion Gap 6, BUN 12, Creatinine 1.42 H, Estim Creat Clear Calc 50.12, Est GFR (MDRD) Af Amer 50 L, Est GFR (MDRD) Non-Af 41 L, BUN/Creatinine Ratio 8.5 L, Glucose 178 H, Calcium 8.5 09/20/23 21:44: POC Glucose 135 H 09/21/23 05:17: WBC 5.7, RBC 3.07 L, Hgb 8.9 L, Hct 27.0 L, MCV 87.9, MCH 29.0, MCHC 33.0, RDW Std Deviation 49.0 H, RDW Coeff of Ilene 15.4 H, Plt Count 204, MPV 10.2, Immature Gran % (Auto) 0.200, Neut % (Auto) 32.6 L, Lymph % (Auto) 56.0 H, [place] % (Auto) 5.7, Eos % (Auto) 4.6, Baso % (Auto) 0.9, Absolute Neuts (auto) 1.9 L, Absolute Lymphs (auto) 3.17, Nucleated RBC % 0.4, Sodium 140, Potassium 3.3 L, Chloride 106, Carbon Dioxide 28.0, Anion Gap 6, BUN 9, Creatinine 1.01, Estim Creat Clear Calc 70.46, Est GFR (MDRD) Af Amer 74, Est GFR (MDRD) Non-Af 61, BUN/Creatinine Ratio 8.9 L, Glucose 52 L, Hemoglobin A1c 12.6 H, Calcium 8.3 L, Phosphorus 1.4 L, Magnesium 2.1, Acetone Level NEGATIVE 09/21/23 06:02: POC Glucose 45 L 09/21/23 06:29: POC Glucose 58 L 09/21/23 07:06: POC Glucose 86 09/21/23 08:30: POC Glucose 113 H ABG Data ABG results: ABG 09/20/23 13:33 Specimen Type LETTY Sample Site Not entered VBG pH 7.44 H VBG pO2 145 H VBG HCO3 18 L VBG Total CO2 19 L VBG O2 Sat (Calc) 99 H VBG Base Excess -6 L POC Mix VBG pCO2 Pt Tmp 26.2 L O2 Delivery Device Not entered Physical Exam Narrative Seen and examined Patient stated she still felt very weak fatigue, loss of appetite and does not want to eat. No fever. Abdominal discomfort has improved. General: Alert, Oriented x3, Cooperative, pale and fatigue HEENT: Atraumatic, PERRLA, EOMI, Normocephalic Oral: Oral mucosa dry. No Gingival or Mucosal Lesions/ Ulcerations Neck: Supple, No JVD, Negative Carotid Bruits Lungs: Air entry diminished in bilateral lung bases. No crepitation/rhonchi Cardiovascular: Regular rate, Regular Rhythm, Normal S1, Normal S2, No murmurs Abdomen: Bowel Sounds Present, Soft, Non Tender, Non-Distended : No renal angle tenderness. No suprapubic tenderness. Extremities: No edema, Capillary Refill Less than 3 Seconds Skin: Small dry healing ulcer with a scab on tip of right great toe Musculoskeletal: No Tenderness to Palpation of Joints or Extremities Neurological: Cranial nerves II-XII grossly intact, DTR 2+/4. No acute focal neurological deficit. Psych/Mental Status: Flat affect. Assessment & Plan Assessment/Plan (1) Diabetic ketoacidosis associated with type 1 diabetes mellitus: QUALIFIERS: Diabetes mellitus complication detail: without coma Qualified Code(s): E10.10 - Type 1 diabetes mellitus with ketoacidosis without coma (2) Acute hypokalemia: PLAN: Plan This 53-year-old female with history of type 1 diabetes mellitus came to ED very weak, fatigue, nausea and vomiting for several days with lab consistent with DKA. 1. DKA with history of type I DM without coma with high anion gap metabolic acidosis: Patient is being admitted in ICU. Vigorous IV fluid resuscitation as per DKA protocol. She got 3 L of IV fluid normal saline. Initially her glucose was 895, serum osmolality 338 but with insulin given in the ED, it sounds decreased to 157. As per protocol D5 half NS at 250 mill per hour. VBG shows P7.44, mixed PCO2 26. She was last admitted in August 21, 2023 for DKA. 10/21: Anion gap closed x2. Bicarb 28. BUN/creatinine normal. Mild hypokalemia, hypophosphatemia. Serum magnesium normal. IV potassium phosphate ordered. Patient on Accu-Chek ACHS and cover with Humalog sliding scale along with scheduled Humalog insulin. A1c 12.6%. Patient running low glucose, 45 and 59 early childhood director but she states she did not feel hypoglycemic symptoms. Most recent 113. Patient has labile 1 brittle diabetes mellitus type 1 and her sugar fluctuates high and lows at home also 2. Severe hypokalemia, hyponatremia: Potassium 2.7. Anion gap 25, bicarb 17 sodium 129. Patient has hypertonic hypovolemic hyponatremia from hyperglycemia. Serum magnesium and phosphorus level normal. Liver chemistry shows elevated alkaline phosphatase, hypoalbuminemia. 3. Right full-thickness ulceration of big toe: Patient follows with Dr. Chandrakant Hernandez. There is healing with a scab. No discharge. She was told that if she gets admitted, let head start assistant teacher to know and will see her. Minister Assistant is consulted. Dry dressing. 09/21: Minister Assistant was consulted yesterday. Will be seen today. 4. Type 1 diabetes mellitus complicated with diabetic neuropathy: See said she is supposed to get insulin pump and glucose sensor Docu. Her last echo in July 2023 EF 60% of the systolic function normal. Structurally normal valves. 5. MITCHELL mainly prerenal from hypovolemia: BUNs/creatinine 18/2.14. Patient had MITCHELL during previous admission. 09/21: MITCHELL resolved. BUNs/creatinine normal. BUN 9, creatinine 1.0. 6. Chronic anemia: H&H 10.8/33.8. Platelet count 290. MCV MCH MCHC normal. RDW elevated. She gets iron infusion as an outpatient and follows Dr. Crespo, she recently had iron work-up in July 2023 which shows low iron, TIBC normal, low iron saturation 11.3%. Ferritin 105. .B12 and folic acid also normal. 09/21: Hemoglobin 8.9 hematocrit 27. RDW 15.4. IV iron infusion given. DVT prophylaxis: High risk: Lovenox 30 mg subcu daily. Multiple comorbidities include GERD, hypertension, history of migraine, insomnia LANA, nonadherent to CPAP, dyslipidemia: Currently patient is n.p.o. Home medications can be resumed when she is made oral. Living will/advanced directive/end of life care: Patient does not have living will or advanced directive. Her is next to kin. After discussion of benefits/risks procedures involved with full code, DNR CC arrest and DNR CC, the patient opted for full code. Patient does want artificial life support including intubation, tube feed, ventilator and/chest compression, central venous catheter, vasopressor and DC shock if needed Charges/Coding Visit Charges Inpatient E&M: 02351 Subs Hosp L2
--- NOTE | 2023-09-21 11:02 | CON.PCM_ITS ---
Assessment & Plan Assessment/Plan (1) Peripheral vascular disease, unspecified: PLAN: Exam performed Patient stabilized ICU to transfer out today. Some erythema to right hallux wound site. Concern for chronic infection to site to this we will plan for hallux IPJ arthroplasty with wound bed debridement and application of graft to right hallux wound. This will allow us a chance to obtain bone biopsy to illuminate osteomyelitis and allow for offloading of the wound internally by mobilizing the hallux IPJ and enhance patient's wound healing potential prevent any acute diabetic infection that may threaten the patient's life or limb. Today the right hallux wound was excisionally debrided down to including level of subcutaneous tissue using a #15 blade without incident. All nonviable tissue was removed. Bleeding granular base noted postdebridement. Pre and postdebridement measurements documented in objective section of the note. Hemostasis obtained with light compression. Patient tolerated procedure well. No anesthesia due to neuropathy. Wound was flushed and dressed with Betadine 4 x 4's Andrés and an Gavino bandage. Patient offload site with surgical shoe to right lower extremity for heel we ightbearing Continue to follow closely. 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 Patient followed by Dr. Hernandez and wound care center for chronic right hallux ulceration. Patient denies constitutional symptoms. Patient denies pain to right wound. Patient resting comfortably no new complaints overnight. [facility] Medical History Acute necrosis of pancreas Alcohol use Allergies Anemia Anemia in chronic kidney disease Anxiety Arthritis Atrial fibrillation Back problem Bipolar disorder with moderate depression Chronic diastolic (congestive) heart failure COVID Depression Diabetes mellitus with microalbuminuria, with long-term current use of insulin Diabetic foot ulcer associated with type 2 diabetes mellitus Diabetic neuropathy Dietary restriction Dilated bile duct Dyslipidemia Excessive bleeding Gastritis Gastroparesis due to secondary diabetes GERD (gastroesophageal reflux disease) Hallux valgus History of cardiac murmur History of edema History of gastroscopy History of renal disease HTN (hypertension) Hyperlipidemia Hypersomnia Insulin dependent diabetes mellitus Leg cramps Liver disease Low back pain Lumbar degenerative disc disease Lumbar facet arthropathy Migraine Nasal lesion Neck mass Non-alcoholic cirrhosis LANA (obstructive sleep apnea) Palpitations Pancreatitis Peripheral edema Pleural effusion Shortness of breath on exertion Sleep apnea Thyromegaly Tubular adenoma of colon Urinary retention Vitamin deficiency Wears glasses Wears partial dentures Home Medications pantoprazole 40 mg tablet,delayed release 40 mg PO DAILY gerd 08/03/22 [History Last Taken 09/19/23] nitroglycerin 0.4 mg sublingual tablet 0.4 mg sublingual Q5M angina 07/10/23 [History Last Taken Unknown] escitalopram oxalate 10 mg tablet 20 mg PO DAILY 07/31/23 [History Last Taken 09/19/23] prochlorperazine maleate 10 mg tablet 10 mg PO Q6H PRN nausea and vomiting #30 tabs 09/16/23 [Rx Last Taken 09/20/23] duloxetine 30 mg capsule,delayed release 30 mg PO DAILY 09/20/23 [History Last Taken 09/19/23] hydroxyzine pamoate 50 mg capsule 50 mg PO DAILY 09/20/23 [History Last Taken 09/19/23] insulin lispro 100 unit/mL subcutaneous solution 35 unit subcut BID 09/20/23 [History Last Taken 09/20/23] lidocaine 5 % topical patch 1 patch topical Q24H 09/20/23 [History Last Taken 09/19/23] Allergy/AdvReac Type Severity Reaction Status Date / Time lactase [From Dairy Aid] Allergy Severe diarrhea Verified 09/20/23 10:57 codeine Allergy Intermediate mental Verified 09/20/23 10:57 status diphenhydramine Allergy Intermediate mental Verified 09/20/23 10:57 [From Benadryl Allergy] status quetiapine [From Seroquel] Allergy Intermediate about Verified 09/20/23 10:57 killed me - went into DKA morphine Allergy Other Verified 09/20/23 10:57 Family History Mother Arthritis Depression Diabetes Father Arthritis Cancer Melanoma Diabetes Kidney disease Brother Arthritis Hypoglycemia Grandfather Myocardial infarction Grandmother Diabetes Surgical History H/O cardiac catheterization H/O gastric bypass History of esophagogastroduodenoscopy (EGD) History of hysterectomy Hx of colonoscopy Social History Smoking Status: Never smoker alcohol intake: current diet: diabetic and lactose free ROS Eyes Eyes: Denies blind spots, bloody eye or discharge from eye(s) ENT HEENT: Denies change in voice, dental pain or foreign body in nose Cardiovascular Cardiovascular: Denies abdominal pain, arrhythmia on telemetry or clubbing Respiratory/Chest Respiratory/Chest: Denies change in phlegm color, dyspnea on exertion or nail bed cyanosis Gastrointestinal Gastrointestinal: Denies change in bowel habits, dry heaves or dyspepsia Physical Exam Narrative Patient has palpable DP pulse posterior tibial pulses palpable 2 out of 4. Atrophic skin changes noted with skin thinning taut shiny appearance absent digi verito hair growth. Capillary fill time to all digits 1 through 5 bilaterally less than 5 seconds. Light touch protective sensation absent to bilateral feet Dermatologic full-thickness wound noted to plantar medial hallux in setting of hallux rigidus with less than 5 degrees dorsiflexion passively to the right hallux first MPJ. Predebridement wound was 0.4 x 0.4 x 0.2 cm. Postdebridement wound was 0.5 x 0.5 x 0.3 cm. Mild periwound erythema. No other signs of infection. Wound demonstrates 100% granular base. Right hallux rigidus noted which is the apex of wound formation due to less than 5 degrees dorsiflexion of first MPJ. No sign DVT. Const alert and oriented x3 Lab / Micro Data 09/21/23 05:17 09/21/23 05:17 Labs: Laboratory Results - last 24 hr 09/20/23 08:47: Magnesium 2.2, Total Bilirubin 0.50, Direct Bilirubin 0.14, AST 18, ALT 26, Alkaline Phosphatase 164 H, Total Protein 7.6, Albumin 3.1 L, Globulin 4.5 H 09/20/23 11:54: POC Glucose 378 H 09/20/23 12:57: POC Glucose 252 H 09/20/23 13:20: Sodium 137, Potassium 3.5, Chloride 100, Carbon Dioxide 19.0 L, Anion Gap 18 H, BUN 15, Creatinine 1.71 H, Estim Creat Clear Calc 41.62, Est GFR (MDRD) Af Amer 40 L, Est GFR (MDRD) Non-Af 33 L, BUN/Creatinine Ratio 8.8 L, Glucose 228 H, Calcium 8.8 09/20/23 14:04: POC Glucose 157 H 09/20/23 15:09: POC Glucose 130 H 09/20/23 16:11: POC Glucose 122 H 09/20/23 16:15: Sodium 138, Potassium 3.2 L, Chloride 102, Carbon Dioxide 27.0, Anion Gap 9, BUN 15, Creatinine 1.44 H, Estim Creat Clear Calc 49.42, Est GFR (MDRD) Af Amer 49 L, Est GFR (MDRD) Non-Af 41 L, BUN/Creatinine Ratio 10.4, Glucose 132 H, Calcium 8.7 09/20/23 18:08: POC Glucose 101 09/20/23 19:02: POC Glucose 123 H 09/20/23 20:49: POC Glucose 160 H 09/20/23 21:00: Sodium 136, Potassium 3.3 L, Chloride 101, Carbon Dioxide 29.0, Anion Gap 6, BUN 12, Creatinine 1.42 H, Estim Creat Clear Calc 50.12, Est GFR (MDRD) Af Amer 50 L, Est GFR (MDRD) Non-Af 41 L, BUN/Creatinine Ratio 8.5 L, Glucose 178 H, Calcium 8.5 09/20/23 21:44: POC Glucose 135 H 09/21/23 05:17: WBC 5.7, RBC 3.07 L, Hgb 8.9 L, Hct 27.0 L, MCV 87.9, MCH 29.0, MCHC 33.0, RDW Std Deviation 49.0 H, RDW Coeff of Ilene 15.4 H, Plt Count 204, MPV 10.2, Immature Gran % (Auto) 0.200, Neut % (Auto) 32.6 L, Lymph % (Auto) 56.0 H, [place] % (Auto) 5.7, Eos % (Auto) 4.6, Baso % (Auto) 0.9, Absolute Neuts (auto) 1.9 L, Absolute Lymphs (auto) 3.17, Nucleated RBC % 0.4, Sodium 140, Potassium 3.3 L, Chloride 106, Carbon Dioxide 28.0, Anion Gap 6, BUN 9, Creatinine 1.01, Estim Creat Clear Calc 70.46, Est GFR (MDRD) Af Amer 74, Est GFR (MDRD) Non-Af 61, BUN/Creatinine Ratio 8.9 L, Glucose 52 L, Hemoglobin A1c 12.6 H, Calcium 8.3 L, Phosphorus 1.4 L, Magnesium 2.1, Acetone Level NEGATIVE 09/21/23 06:02: POC Glucose 45 L 09/21/23 06:29: POC Glucose 58 L 09/21/23 07:06: POC Glucose 86 09/21/23 08:30: POC Glucose 113 H ABG Data ABG results: ABG 09/20/23 13:33 Specimen Type LETTY Sample Site Not entered VBG pH 7.44 H VBG pO2 145 H VBG HCO3 18 L VBG Total CO2 19 L VBG O2 Sat (Calc) 99 H VBG Base Excess -6 L POC Mix VBG pCO2 Pt Tmp 26.2 L O2 Delivery Device Not entered
--- NOTE | 2023-09-21 11:40 | CASEMGMT ---
RN CM chart review: Patient was admitted 08/19-08/21/23 for DKA. See RN CM assessment from 08/20/23. Patient was discharged to home with new prescriptions and follow-up plans in place. Patient returned 09/20/23 for N/V and admitted for DKA. Patient states she attended PCP appointment. Patient has been following at the wound center and with podiatry. Patient states she will return home at discharge. Patient to have podiatry surgery on Saturday for toe wound. Will follow for DME and possible HHC pending progress with therapy.
[2023-09-21 12:10] LABS: Bedside Glucose 76 mg/dL (74-106)
[2023-09-21 12:10] LABS: Bedside Glucose 54 mg/dL (74-106)
[2023-09-21] MEDS: Potassium Phosphate 21 MMOL in 0.9% Normal Saline (250mL Bag) 250 ML 84 MMOL IV (14:33)
--- NOTE | 2023-09-21 14:51 | CASEMGMT ---
Social Work As per CM, pt asked for information on applying for disability. SW met w/pt, she explains she actually has applied before with the help of a friend and was denied. SW suggested she look at the paperwork and see if she can appeal, and if not she can call to set up an appt to reapply, or reapply online. SW gave pt the 800 number and information on the local office. Pt states understanding. SW will continue to follow along for possible SNF placement. PETAR Blue
[2023-09-21] MEDS: Acetaminophen 325 MG Tablet 650 MG PO ×2 (16:32→22:04)
[2023-09-21] MEDS: Insulin Lispro 100 UNIT/ML INSULN.PEN SC ×2 (16:38→21:17)
[2023-09-21 17:22] LABS: Bedside Glucose 184 mg/dL (74-106)
[2023-09-21] MEDS: traZODone 100 MG Tablet 200 MG PO (21:13)
[2023-09-21] MEDS: hydrOXYzine PAM 25 MG Capsule 50 MG PO (21:13)
[2023-09-21 21:44] LABS: Bedside Glucose 392 mg/dL (74-106)
[2023-09-21] MEDS: Carvedilol 12.5 MG Tablet PO (22:01)
[2023-09-21 23:42] LABS: Bedside Glucose 273 mg/dL (74-106)
[2023-09-22 02:38] VITALS: BP 123/71; PULSE 84; RESP 16; TEMP 36.5; O2SAT 96
[2023-09-22] MEDS: proCHLORPERazine 5 MG Tablet 10 MG PO (02:53)
[2023-09-22 03:41] LABS: Bedside Glucose 293 mg/dL (74-106)
[2023-09-22 06:00] VITALS: BMI 36.3
[2023-09-22] MEDS: Insulin Lispro 100 UNIT/ML INSULN.PEN SC ×2 (06:26→12:31)
[2023-09-22] MEDS: Acetaminophen 325 MG Tablet 650 MG PO (06:32)
[2023-09-22 07:01] LABS: Bedside Glucose 405 mg/dL (74-106)
[2023-09-22 08:27] VITALS: BP 126/82; PULSE 81; RESP 16; TEMP 36.7; O2SAT 98
[2023-09-22] MEDS: Carvedilol 12.5 MG Tablet PO (08:43)
[2023-09-22] MEDS: Insulin Lispro 100 UNIT/ML INSULN.PEN 25 UNIT SC (08:43)
[2023-09-22] MEDS: Pantoprazole Sodium 40 MG Tablet PO (08:44)
[2023-09-22] MEDS: Escitalopram Oxalate 20 MG Tablet PO (08:45)
--- NOTE | 2023-09-22 11:56 | PCM.WC.PN ---
History of Present Illness Date of Service: 09/22/23 Chief Complaint: Right and left DFU ulcers History of Wound: Mrs. Sherwood is a 53-year-old uncontrolled diabetic seen in the wound care center today with a chief complaint of full-thickness ulceration to the right big toe. As the patient presents today at the wound care center she is vomiting secondary to feeling nauseous and sick. She admits to not eating for the past 2 days. When questioned about her blood sugar levels, she says that her monitor only reads high and does not give a number. When tested in the wound care center today the patient's blood sugar was greater than 600 as are meter can only go as high as 600 mg/dL. She admits to vomiting and chills. She denies any trauma. Denies any other pedal complaints. Subjective Subjective Ms. Sherwood is a 53-year-old female seen at bedside today for dressing change. Patient still has evidence of a full-thickness ulceration to the right big toe. Plan will be to take the patient to the operating room tomorrow to perform minimal invasive surgery consisting of IPJ arthroplasty to the right hallux, surgical skin graft prep as well as application of amnion skin graft substitute to the right hallux. Patient understands all risk and benefits. She like to move forward with surgery. No events overnight. She admits to some weakness. She denies trauma. Denies constitutional symptoms. No other pedal complaints at this time. Objective Data Objective Data Vital Signs: Vital Signs Temp Pulse Resp BP Pulse Ox O2 Del Method 98.0 F 81 16 126/82 H 98 Room Air 09/22/23 08:27 09/22/23 08:27 09/22/23 08:27 09/22/23 08:27 09/22/23 08:27 09/22/23 08:27 Oxygen Delivery Method Room Air Weight: 115.3 kg Body Mass Index (BMI) 36.3 Intake & Output: Intake and Output for Last 24 Hours 09/20/23 09/21/23 09/22/23 23:59 23:59 23:59 Intake Total 5879.22 / 5879.22 767 / 967 300 / 300 Balance 5879.22 / 5879.22 767 / 967 300 / 300 Lab / Micro Data Attestation: I reviewed the patient's lab results. 09/21/23 05:17 09/21/23 05:17 Labs: Laboratory Results - last 24 hr 09/21/23 11:30: POC Glucose 54 L 09/21/23 11:53: POC Glucose 76 09/21/23 16:34: POC Glucose 184 H 09/21/23 21:17: POC Glucose 392 H 09/21/23 23:24: POC Glucose 273 H 09/22/23 02:51: POC Glucose 293 H 09/22/23 06:25: POC Glucose 405 H Physical Exam Narrative Patient has palpable DP pulse posterior tibial pulses palpable 2 out of 4. Atrophic skin changes noted with skin thinning taut shiny appearance absent digital hair growth. Capillary fill time to all digits 1 through 5 bilaterally less than 5 seconds. Light touch protective sensation absent to bilateral feet Dermatologic full-thickness wound noted to plantar medial hallux in setting of hallux rigidus with less than 5 degrees dorsiflexion passively to the right hallux first MPJ. No erythema. No other signs of infection. Wound demonstrates 100% granular base. Right hallux rigidus noted which is the apex of wound formation due to less than 5 degrees dorsiflexion of first MPJ. No sign DVT. Assessment/Plan Assessment/Plan (1) Non-pressure chronic ulcer of other part of right foot with fat layer exposed: CODE(S): L97.512 - Non-pressure chronic ulcer of other part of right foot with fat layer exposed PLAN: Patient was examined and evaluated. All findings were discussed with the patient. All questions were answered to the patient's satisfaction. Right hallux full-thickness ulceration was dressed with Betadine paint and sterile Band-Aid. Patient is to be partial weightbearing to heel to the right foot. Will plan to take the patient to the operating room tomorrow, Sx time is still pending, to perform minimally invasive surgery consisting of IPJ arthroplasty to the right hallux followed by surgical skin graft prep to the full-thickness ulceration with application of skin graft substitute to the right hallux. Patient understands all risk and benefits. It is understanding that the patient is an uncontrolled diabetic, thus this is why we will be performing minimal invasive surgery to decrease any chance of wound complication. Patient to be n.p.o. at midnight tonight. If the case is pushed to the afternoon the patient may eat no later than 9 AM tomorrow. Medicine: On board for medical management Please reach out to Dr. Hernandez with any questions or concerns. Thank you for letting me be involved in the patient's care. 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
--- NOTE | 2023-09-22 12:07 | PCM.PN.HOSP ---
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 (09/21/23) Objective Data Objective Data Vital Signs: Vital Signs Temp Pulse Resp BP Pulse Ox O2 Del Method 98.0 F 81 16 126/82 H 98 Room Air 09/22/23 08:27 09/22/23 08:27 09/22/23 08:27 09/22/23 08:27 09/22/23 08:27 09/22/23 08:27 Oxygen Delivery Method Room Air Weight: 254 lb 3.088 oz Body Mass Index (BMI) 36.3 Intake & Output: Intake and Output for Last 24 Hours 09/20/23 09/21/23 09/22/23 23:59 23:59 23:59 Intake Total 5879.22 / 5879.22 767 / 967 300 / 300 Balance 5879.22 / 5879.22 767 / 967 300 / 300 Lab / Micro Data 09/21/23 05:17 09/21/23 05:17 Labs: Laboratory Results - last 24 hr 09/21/23 11:30: POC Glucose 54 L 09/21/23 11:53: POC Glucose 76 09/21/23 16:34: POC Glucose 184 H 09/21/23 21:17: POC Glucose 392 H 09/21/23 23:24: POC Glucose 273 H 09/22/23 02:51: POC Glucose 293 H 09/22/23 06:25: POC Glucose 405 H Physical Exam Narrative Seen and examined Patient stated she still felt very weak fatigue, loss of appetite and does not want to eat. Patient continues to have hypo and hyperglycemia. No fever. No abdominal pain General: Alert, Oriented x3, Cooperative, pale and fatigue HEENT: Atraumatic, PERRLA, EOMI, Normocephalic Oral: Oral mucosa dry. No Gingival or Mucosal Lesions/ Ulcerations Neck: Supple, No JVD, Negative Carotid Bruits Lungs: Air entry diminished in bilateral lung bases. No crepitation/rhonchi Cardiovascular: Regular rate, Regular Rhythm, Normal S1, Normal S2, No murmurs Abdomen: Bowel Sounds Present, Soft, Non Tender, Non-Distended : No renal angle tenderness. No suprapubic tenderness. Extremities: No edema, Capillary Refill Less than 3 Seconds Skin: Small dry healing ulcer with a scab on tip of right great toe Musculoskeletal: No Tenderness to Palpation of Joints or Extremities Neurological: Cranial nerves II-XII grossly intact, DTR 2+/4. No acute focal neurological deficit. Psych/Mental Status: Flat affect. Assessment & Plan Assessment/Plan (1) Diabetic ketoacidosis associated with type 1 diabetes mellitus: QUALIFIERS: Diabetes mellitus complication detail: without coma Qualified Code(s): E10.10 - Type 1 diabetes mellitus with ketoacidosis without coma (2) Acute hypokalemia: PLAN: Plan This 53-year-old female with history of type 1 diabetes mellitus came to ED very weak, fatigue, nausea and vomiting for several days with lab consistent with DKA. 1. DKA with history of type I DM without coma with high anion gap metabolic acidosis: Patient is being admitted in ICU. Vigorous IV fluid resuscitation as per DKA protocol. She got 3 L of IV fluid normal saline. Initially her glucose was 895, serum osmolality 338 but with insulin given in the ED, it sounds decreased to 157. As per protocol D5 half NS at 250 mill per hour. VBG shows P7.44, mixed PCO2 26. She was last admitted in August 21, 2023 for DKA. 10/21: Anion gap closed x2. Bicarb 28. BUN/creatinine normal. Mild hypokalemia, hypophosphatemia. Serum magnesium normal. IV potassium phosphate ordered. Patient on Accu-Chek ACHS and cover with Humalog sliding scale along with scheduled Humalog insulin. A1c 12.6%. 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 Most recent 113. Patient has labile 1 brittle diabetes mellitus type 1 and her sugar fluctuates high and lows at home also 09/22: A1c 12.6%. Glucose varies between 54-405. Patient could not give me a clear reason why she is not Lantus she stated it was not controlling her glucose.. Patient is started on Lantus insulin and Humalog insulin dose increased. 2. Severe hypokalemia, hyponatremia: Potassium 2.7. Anion gap 25, bicarb 17 sodium 129. Patient has hypertonic hypovolemic hyponatremia from hyperglycemia. Serum magnesium and phosphorus level normal. Liver chemistry shows elevated alkaline phosphatase, hypoalbuminemia. 3. Right full-thickness ulceration of big toe: Patient follows with Dr. Chandrakant Hernandez. There is healing with a scab. No discharge. She was told that if she gets admitted, let data processing control clerk to know and will see her. Outer Diameter Technician is consulted. Dry dressing. 09/21: Outer Diameter Technician was consulted yesterday. Will be seen today. 09/22: Patient was seen by Dr. Faulkner. Plan for OR tomorrow. 4. Type 1 diabetes mellitus complicated with diabetic neuropathy: See said she is supposed to get insulin pump and glucose sensor Docu. Her last echo in July 2023 EF 60% of the systolic function normal. Structurally normal valves. 5. MITCHELL mainly prerenal from hypovolemia: BUNs/creatinine 18/2.14. Patient had MITCHELL during previous admission. 09/21: MITCHELL resolved. BUNs/creatinine normal. BUN 9, creatinine 1.0. 6. Chronic anemia: H&H 10.8/33.8. Platelet count 290. MCV MCH MCHC normal. RDW elevated. She gets iron infusion as an outpatient and follows Dr. Crespo, she recently had iron work-up in July 2023 which shows low iron, TIBC normal, low iron saturation 11.3%. Ferritin 105. .B12 and folic acid also normal. 09/21: Hemoglobin 8.9 hematocrit 27. RDW 15.4. IV iron infusion given. DVT prophylaxis: High risk: Lovenox 30 mg subcu daily. Multiple comorbidities include GERD, hypertension, history of migraine, insomnia LANA, nonadherent to CPAP, dyslipidemia: Currently patient is n.p.o. Home medications can be resumed when she is made oral. Living will/advanced directive/end of life care: Patient does not have living will or advanced directive. Her is next to kin. After discussion of benefits/risks procedures involved with full code, DNR CC arrest and DNR CC, the patient opted for full code. Patient does want artificial life support including intubation, tube feed, ventilator and/chest compression, central venous catheter, vasopressor and DC shock if needed Charges/Coding Visit Charges Inpatient E&M: 28987 Subs Hosp L2
[2023-09-22 12:14] LABS: Anion Gap 10 (5-15); BUN 10 mg/dL (7-18); BUN/Creat Ratio 9.3 RATIO (10-20); Calcium,Total 8.4 mg/dL (8.5-10.1); Chloride 105 mmol/L (98-107); Creatinine, Serum 1.07 mg/dL (0.55-1.02); EST Glomerular Filtration Rate 57 mL/min (>60); Est Glom Filt Rate - Afr Amer 69 mL/min (>60); Estimated Creatinine Clearance 66.51 ml/min; Glucose 171 mg/dL (74-106); Sodium Level 138 mmol/L (136-145)
[2023-09-22 12:22] LABS: Bedside Glucose 160 mg/dL (74-106)
[2023-09-22] MEDS: Na Biphos/Potassium Phosphate PACKET 1 PACKET PO (12:31)
[2023-09-22] MEDS: Insulin Lispro 100 UNIT/ML INSULN.PEN 10 UNIT SC (12:32)
[2023-09-22] MEDS: Insulin Glargine-YFGN 100 UNIT/ML Pen 15 UNIT SC (12:34)
[2023-09-22 13:36] VITALS: BP 132/77; PULSE 84; RESP 16; TEMP 36.6; O2SAT 98
[2023-09-22 17:09] LABS: Bedside Glucose 109 mg/dL (74-106)
[2023-09-22 21:33] VITALS: BP 155/98; PULSE 81; RESP 16; TEMP 36.6; O2SAT 96
[2023-09-22 21:48] LABS: Bedside Glucose 282 mg/dL (74-106)
[2023-09-22 23:45] VITALS: BMI 36.4
[2023-09-23] VITALS (11 sets, daily range): BP systolic 114–145; BP diastolic 60–84; PULSE 67–84; RESP 16–18; TEMP 36.5–36.7; O2SAT 94–99; BMI 36.3
--- NOTE | 2023-09-23 05:55 | EKG12_ITS ---
Test Reason : AM EKG Blood Pressure : / mmHG Vent. Rate : 074 BPM Atrial Rate : 074 BPM P-R Int : 184 ms QRS Dur : 088 ms QT Int : 388 ms P-R-T Axes : 043 -03 021 degrees QTc Int : 430 ms Normal sinus rhythm Normal ECG When compared with ECG of 20-SEP-2023 08:50, MANUAL COMPARISON REQUIRED, DATA IS UNCONFIRMED Confirmed by ABUNDIO CORDOVA, VANDANA ([id number]), development editor PONCHO YBARRA ([id number]) on 09/24/2023 7:15:06 AM Referred By: IZABELLA Confirmed By:VANDANA DEL CASTILLO MD
[2023-09-23 06:13] LABS: Absolute Lymphocyte Count 1.94 X10^3/uL (0.83-4.51); Absolute Neutrophil Count 1.7 X10^3/uL (2.0-7.7); Basophil# 0.04 X10^3/uL; Eosinophil# 0.13 X10^3/uL; Eosinophils% 3.2 % (0-5); Hematocrit 31.5 % (37-47); Hemoglobin 10.1 g/dL (12.0-15.0); Lymphocyte # 1.94 X10^3/ul (0.83-4.51); Lymphocyte % 48.4 % (19-41); Mean Corp Hgb Conc 32.1 g/dL (32-36); Mean Corpuscular Hgb 28.9 pg (27.0-32.0); Mean Platelet Vol. 10.7 fl (6.2-12.0); Monocyte# 0.19 X10^3/uL; Monocyte% 4.7 % (0-10); NRBC Flagged by Analyzer 0 % (0-5); Neutrophil % 42.5 % (47-70); Platelet Count 218 K/mm3 (150-450); RBC Distribution Width CV 16.6 % (11.6-14.6); RBC Distribution Width SD 54.8 fl (35.1-43.9)
[2023-09-23] MEDS: Insulin Lispro 100 UNIT/ML INSULN.PEN SC ×3 (06:24→16:32)
[2023-09-23 06:29] LABS: International Normalized Ratio 0.9; Partial Thromboplast Time 24.2 Seconds (24.1-36.2); Prothrombin Time (Protime)PT. 11.8 SECONDS (11.7-14.9)
[2023-09-23 06:39] LABS: Anion Gap 5 (5-15); BUN 15 mg/dL (7-18); BUN/Creat Ratio 16.5 RATIO (10-20); Calcium,Total 8.7 mg/dL (8.5-10.1); Chloride 100 mmol/L (98-107); Creatinine, Serum 0.91 mg/dL (0.55-1.02); EST Glomerular Filtration Rate 69 mL/min (>60); Est Glom Filt Rate - Afr Amer 84 mL/min (>60); Glucose 388 mg/dL (74-106); Magnesium 1.9 mg/dL (1.6-2.6); Phosphorus 2.9 mg/dL (2.5-4.9); Potassium 4.4 mmol/L (3.5-5.1); Sodium Level 133 mmol/L (136-145)
[2023-09-23 06:51] LABS: Bedside Glucose 408 mg/dL (74-106)
[2023-09-23 08:37] LABS: Hemoglobin A1c 12.4 % (3.8-5.6)
[2023-09-23] MEDS: 0.9% Normal Saline (1000mL) 1,000 ML 15 ML IV (09:55)
--- NOTE | 2023-09-23 10:01 | RAD_ITS ---
STUDY: X-RAY - RIGHT FOOT CLINICAL: Female, 53 years old. BONE BX, HALLUX IPJ ARTHROPLASTY/DEBRIDEMENT TECHNIQUE: Multiple fluoroscopic spot view(s) of the foot. COMPARISON: Right foot June 28, 2023. FINDINGS: Multiple fluoroscopic spot films of the great toe and external metallic pin. RAD/Foot min 3 Views IMPRESSION: Please correlate with clinical service Electronically Signed: Rancho Guevara MD at 16:59 EST ,
[2023-09-23 10:06] LABS: Bedside Glucose 205 mg/dL (74-106)
--- NOTE | 2023-09-23 10:22 | OP.PCM_ITS ---
Problems Associated Problem List Diagnoses (1) Osteoarthritis of right foot: (2) Non-pressure chronic ulcer of other part of right foot with fat layer exposed: (3) Type 2 diabetes mellitus with diabetic polyneuropathy: Report of Operation Date of Procedure: 09/23/23 Pre-Operative Diagnosis: 1. Osteoarthritis, right foot 2. Nonpressure ulcer with fat exposed, right hallux 3. Diabetes mellitus type 2 with peripheral neuropathy 4. Pain, right hallux Post-Operative Diagnosis: 1. Osteoarthritis, right foot 2. Nonpressure ulcer with fat exposed, right hallux 3. Diabetes mellitus type 2 with peripheral neuropathy 4. Pain, right hallux Surgery/Procedure Performed:: 1. Hallux IPJ arthroplasty, right foot 2. Surgical prep for skin graft substitute of full-thickness ulceration, right hallux 3. Application of skin graft substitute, right hallux Description of Surgical Findings:: 1. Complete resection of the IPJ, right hallux 2. Complete application of WorkSimple BioSkin 2 x 4 cm to the skin graft site prep. 3. Increased range of motion after arthroplasty to the IPJ of the right hallux. Surgeon: Chandrakant Hernandez mat sewer: None Type of Anesthesia: Local and MAC Anesthesiologist: Sebastien Bernstein Special Medications: None Specimen's removed: None Drains: None Estimated Blood Loss (mL): 10 mL Fluids Replaced: Per anesthesia Description of Procedure: Indications For Operation: Ms. Sherwood is a 53-year-old diabetic female who was admitted to [facility] for diabetic ketoacidosis. During the patient's hospital stay podiatry was consulted for evaluation of the patient's full-thickness ulceration to the right hallux as well as the patient being an established patient with Dr. Hernandez at the wound care center. Due to the nature of the patient's chronicity of the full-thickness ulceration to the right hallux it had deemed necessary at this time to perform minimally invasive hallux IPJ arthroplasty, surgical skin graft prep with application of skin graft substitute to the right hallux to relieve the patient's constant pain and help heal her full-thickness ulceration. The nature of the problem, anticipated procedures, postop recovery/convalences and risk/complications include but not limited to infection, wound healing complications, hypertrophic scarring, numbness, tingling, chronic pain, CRPS, over and under correction, recurrence of deformity, DVT and or PE and the need for further surgery have been discussed in great detail with the patient. All questions have been answered to the patient's satisfaction. There are no guarantees given as to the outcome of the procedure. Description of Procedure: Under mild sedation, the patient was brought into the operating room and placed on the operating table in supine position. Once the patient was under monitored anesthesia care anesthesia , the right lower extremity was blocked in Hidalgo block fashion using approximately 20 cc 0.5% Marcaine plain. Next, a well-padded calf tourniquet was applied to the right lower extremity. Next, the right lower extremities prepped and draped in normal aseptic manner next, a timeout was then undertaken verifying the correct patient, extremity, visibility of preoperative markings, availability of the equipment. Next, using a 4 inch Esmarch the right lower extremity was exsanguinated, elevated to 60 degrees for 1 minute and the calf tourniquet was inflated to 250 mmHg. Next using mini C arm fluoroscopy the IPJ of the right hallux was identified and marked. The right hallux IPJ was put through range of motion and showed decreased range of motion in the dorsiflexion and plantarflexion attitude with clinically observed crepitus. Using a 15 blade a stab incision was made to the lateral aspect of the right hallux at the level of IPJ. Using a [place] the soft tissue was bluntly dissected off the joint surface superior and inferiorly. Using the WorkSimple MIS bur, 2 x 12 mm, the bur penetrated the joint and the IPJ arthroplasty was performed. The progress of the joint resection was done clinically as well as under C-arm fluoroscopy. Range of motion of the joint after the arthroplasty showed increase in the dorsiflexion and plantarflexion attitude. The incision was flushed with 60 mL of warm normal saline and all of the morselized bone was evacuated through the incision. Next, attention was directed to the plantar aspect of the IPJ full-thickness ulceration. Using a #15 blade surgical skin graft site prep of the plantar right hallux was performed down to and including subcutaneous tissue without incident. There is evidence of sanguinous drainage after debridement. The right lower extremity was wiped clean and patted dry. Predebridement measurement was 0.3 x 0.3 x 0.1 cm. Postdebridement measurement was 0.9 x 0.9 x 0.2 cm. The tourniquet was deflated and reperfusion was noted to the right lower extremity. The lateral incision on the hallux was closed with one 4-0 nylon suture in simple interrupted suture technique. Application of skin graft substitute, [employer] BioSkin 2 x 4 cm was applied to surgical skin graft site. The right lower extremity was wiped clean and patted dry. The graft was covered with Adaptic and Steri-Strips, the incision was covered with Betadine soaked Adaptic, the right lower extremity was dressed with dry sterile dressing and a single layer Emery compression bandage was applied to the right lower extremity. The patient tolerated the procedure and anesthesia well and apparent satisfactory condition and was transported to the PACU for further monitoring prior to discharge back to the floor. Vital signs stable and vascular status intact to all digits bilateral. Post Operative Plan: Weightbearing: Partial weightbearing to heel with surgical shoe right foot. Full weightbearing left lower extremity Antibiotics: 2 g Ancef through the IV DVT Prophylaxis: Per medicine, ambulation Lee: None Dressing: Adaptic, Steri-Strips over the graft, Betadine soaked Adaptic over the incision, dry sterile dressing single layer Emery compression bandage right lower extremity X-Rays: Post-operative films taken on the operating room. Pain Medication: Per medicine Follow-up: Follow-up 1 week postop at the wound care center with Dr. Hernandez Grafts/Implants Used: [employer] BioSkin 2 x 4 cm Complications None Admit VTE Documentation VTE Present on Admission: Yes VTE Mechan Device Prophylaxis: SCD's VTE Pharm Prophylaxis ordered?: Yes
[2023-09-23] MEDS: Cefazolin 2 GM in 0.9% Normal Saline (100mL Bag) 100 ML IV (10:27)
[2023-09-23] MEDS: Bupivacaine Mpf 0.5% 30 ML VIAL (11:02)
--- NOTE | 2023-09-23 12:55 | PCM.PROGNOTE ---
Subjective Subjective Patient seen and examined. She had no active complaints and had an uneventful night. Review of systems is otherwise negative. She is due for right foot surgery today o/a of the chronic ulcer of the right foot. Objective Data Objective Data Vital Signs: Vital Signs Temp Pulse Resp BP Pulse Ox O2 Del Method 97.9 F 67 18 117/75 99 Room Air 09/23/23 12:46 09/23/23 12:46 09/23/23 12:46 09/23/23 12:46 09/23/23 12:46 09/23/23 12:46 Oxygen Delivery Method Room Air Weight: 253 lb Body Mass Index (BMI) 36.3 Intake & Output: Intake and Output for Last 24 Hours 09/21/23 09/22/23 09/23/23 23:59 23:59 23:59 Intake Total 767 / 967 300 / 300 110 / 110 Balance 767 / 967 300 / 300 110 / 110 Lab / Micro Data 09/23/23 05:48 09/23/23 05:48 Labs: Laboratory Results - last 24 hr 09/22/23 16:35: POC Glucose 109 H 09/22/23 21:21: POC Glucose 282 H 09/23/23 05:48: WBC 4.0 L, RBC 3.50 L, Hgb 10.1 L, Hct 31.5 L, MCV 90.0, MCH 28.9, MCHC 32.1, RDW Std Deviation 54.8 H, RDW Coeff of Ilene 16.6 H, Plt Count 218, MPV 10.7, Immature Gran % (Auto) 0.200, Neut % (Auto) 42.5 L, Lymph % (Auto) 48.4 H, [place] % (Auto) 4.7, Eos % (Auto) 3.2, Baso % (Auto) 1.0, Absolute Neuts (auto) 1.7 L, Absolute Lymphs (auto) 1.94, Nucleated RBC % 0, PT 11.8, INR 0.9, APTT 24.2, Sodium 133 L, Potassium 4.4, Chloride 100, Carbon Dioxide 28.0, Anion Gap 5, BUN 15, Creatinine 0.91, Estim Creat Clear Calc 78.20, Est GFR (MDRD) Af Amer 84, Est GFR (MDRD) Non-Af 69, BUN/Creatinine Ratio 16.5, Glucose 388 H, Hemoglobin A1c 12.4 H, Calcium 8.7, Phosphorus 2.9, Magnesium 1.9 09/23/23 06:23: POC Glucose 408 H 09/23/23 09:42: POC Glucose 205 H Physical Exam Const alert, oriented x3 and no apparent distress General Appearance: cooperative HEENT normocephalic, head/scalp atraumatic, moist oral mucous membranes and oropharynx normal Eyes PERRL and EOMs intact bilaterally Neck no lymphadenopathy and supple Lymph Lymphatic: no lymphadenopathy noted and no lymphedema noted Resp normal respiratory effort, normal air movement and clear to auscultation bilaterally Cardio regular rate, regular rhythm, S1 normal heart sound, S2 normal heart sound and no murmurs GI normal to inspection, nondistended, normoactive bowel sounds, soft to palpation, non-tender and non-distended Extremity normal capillary refill and no clubbing, cyanosis or edema Extremity Narrative: right foot wrapped in bandage Skin Skin Narrative: as under extremities Neuro CN's II-XII intact bilaterally, no focal motor deficits and no sensory deficits noted Motor Exam: strength 5/5 throughout Psych thought process normal and cooperative Appearance: appropriate Assessment & Plan Assessment/Plan (1) Osteoarthritis of right foot: QUALIFIERS: Osteoarthritis type: primary Qualified Code(s): M19.071 - Primary osteoarthritis, right ankle and foot (2) Type 2 diabetes mellitus with diabetic polyneuropathy: QUALIFIERS: Diabetes mellitus assisted insulin use: with assisted use Qualified Code(s): E11.42 - Type 2 diabetes mellitus with diabetic polyneuropathy; Z79.4 - terminal 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
[2023-09-23 13:12] LABS: Bedside Glucose 209 mg/dL (74-106)
[2023-09-23] MEDS: Na Biphos/Potassium Phosphate PACKET 1 PACKET PO ×2 (13:59→21:29)
[2023-09-23] MEDS: Insulin Lispro 100 UNIT/ML INSULN.PEN 35 UNIT SC (16:31)
[2023-09-23] MEDS: Carvedilol 12.5 MG Tablet PO (16:31)
[2023-09-23 17:02] LABS: Bedside Glucose 323 mg/dL (74-106)
[2023-09-23] MEDS: Acetaminophen 325 MG Tablet 650 MG PO (19:41)
[2023-09-23] MEDS: traZODone 100 MG Tablet 200 MG PO (21:29)
[2023-09-23] MEDS: hydrOXYzine PAM 25 MG Capsule 50 MG PO (21:33)
[2023-09-23 22:48] LABS: Bedside Glucose 108 mg/dL (74-106)
[2023-09-24 00:38] VITALS: BP 116/81; PULSE 82; RESP 16; TEMP 36.4; O2SAT 95
[2023-09-24 05:03] VITALS: BMI 36.3
[2023-09-24] MEDS: Insulin Lispro 100 UNIT/ML INSULN.PEN SC ×2 (06:34→16:36)
[2023-09-24] MEDS: Na Biphos/Potassium Phosphate PACKET 1 PACKET PO (06:35)
[2023-09-24] MEDS: Acetaminophen 325 MG Tablet 650 MG PO ×3 (06:41→22:29)
[2023-09-24 06:46] VITALS: BP 131/78; PULSE 75; RESP 16; TEMP 36.4; O2SAT 99
[2023-09-24 07:42] LABS: Bedside Glucose 192 mg/dL (74-106)
[2023-09-24 07:43] LABS: Absolute Lymphocyte Count 2.08 X10^3/uL (0.83-4.51); Absolute Neutrophil Count 1.7 X10^3/uL (2.0-7.7); Basophil# 0.03 X10^3/uL; Basophil% 0.7 % (0-1); Eosinophil# 0.15 X10^3/uL; Eosinophils% 3.5 % (0-5); Hematocrit 28.7 % (37-47); Hemoglobin 8.9 g/dL (12.0-15.0); Lymphocyte # 2.08 X10^3/ul (0.83-4.51); Lymphocyte % 49.1 % (19-41); Mean Corpuscular Hgb 28.5 pg (27.0-32.0); Mean Platelet Vol. 10.7 fl (6.2-12.0); Monocyte% 7.1 % (0-10); NRBC Flagged by Analyzer 0 % (0-5); Neutrophil # 1.66 X10^3/uL (2.7-7.7); Neutrophil % 39.1 % (47-70); Platelet Count 214 K/mm3 (150-450); RBC Distribution Width CV 17.3 % (11.6-14.6); RBC Distribution Width SD 57.1 fl (35.1-43.9); Red Blood Count 3.12 M/mm3 (4.2-5.4); White Blood Count 4.2 K/mm3 (4.4-11.0)
[2023-09-24 08:13] VITALS: BP 123/72; PULSE 70; RESP 16; TEMP 36.6; O2SAT 94
[2023-09-24 08:13] LABS: Anion Gap 2 (5-15); BUN 18 mg/dL (7-18); BUN/Creat Ratio 22.3 RATIO (10-20); Calcium,Total 8.8 mg/dL (8.5-10.1); Chloride 104 mmol/L (98-107); Creatinine, Serum 0.81 mg/dL (0.55-1.02); EST Glomerular Filtration Rate 79 mL/min (>60); Est Glom Filt Rate - Afr Amer 96 mL/min (>60); Estimated Creatinine Clearance 87.86 ml/min; Glucose 206 mg/dL (74-106); Potassium 4.4 mmol/L (3.5-5.1); Sodium Level 138 mmol/L (136-145)
[2023-09-24] MEDS: Carvedilol 12.5 MG Tablet PO ×2 (08:14→16:36)
[2023-09-24] MEDS: Pantoprazole Sodium 40 MG Tablet PO (08:14)
[2023-09-24] MEDS: Insulin Glargine-YFGN 100 UNIT/ML Pen 15 UNIT SC (08:15)
[2023-09-24] MEDS: Escitalopram Oxalate 20 MG Tablet PO (08:15)
[2023-09-24] MEDS: Insulin Lispro 100 UNIT/ML INSULN.PEN 35 UNIT SC ×2 (09:33→16:36)
[2023-09-24 09:59] LABS: Bedside Glucose 215 mg/dL (74-106)
--- NOTE | 2023-09-24 11:47 | PN_ITS ---
Subjective Subjective Patient seen and examined. She does not have any active complaints. Pain is well-controlled. Review of systems otherwise negative. Objective Data Objective Data Vital Signs: Vital Signs Temp Pulse Resp BP Pulse Ox O2 Del Method 97.9 F 70 16 123/72 H 94 Room Air 09/24/23 08:13 09/24/23 08:13 09/24/23 08:13 09/24/23 08:13 09/24/23 08:13 09/24/23 08:13 Oxygen Delivery Method Room Air Weight: 253 lb 4.978 oz Body Mass Index (BMI) 36.3 Intake & Output: Intake and Output for Last 24 Hours 09/22/23 09/23/23 09/24/23 23:59 23:59 23:59 Intake Total 300 / 300 110 / 310 400 / 400 Balance 300 / 300 110 / 310 400 / 400 Lab / Micro Data 09/24/23 06:30 09/24/23 06:30 Labs: Laboratory Results - last 24 hr 09/23/23 12:50: POC Glucose 209 H 09/23/23 16:29: POC Glucose 323 H 09/23/23 21:39: POC Glucose 108 H 09/24/23 06:30: WBC 4.2 L, RBC 3.12 L, Hgb 8.9 L, Hct 28.7 L, MCV 92.0, MCH 28.5, MCHC 31.0 L, RDW Std Deviation 57.1 H, RDW Coeff of Ilene 17.3 H, Plt Count 214, MPV 10.7, Immature Gran % (Auto) 0.500, Neut % (Auto) 39.1 L, Lymph % (Auto) 49.1 H, [place] % (Auto) 7.1, Eos % (Auto) 3.5, Baso % (Auto) 0.7, Absolute Neuts (auto) 1.7 L, Absolute Lymphs (auto) 2.08, Nucleated RBC % 0, Sodium 138, Potassium 4.4, Chloride 104, Carbon Dioxide 32.0, Anion Gap 2 L, BUN 18, Creatinine 0.81, Estim Creat Clear Calc 87.86, Est GFR (MDRD) Af Amer 96, Est GFR (MDRD) Non-Af 79, BUN/Creatinine Ratio 22.3 H, Glucose 206 H, Calcium 8.8 09/24/23 06:33: POC Glucose 192 H 11/28/23 09:37: POC Glucose 215 H Physical Exam Const alert, oriented x3 and no apparent distress General Appearance: cooperative HEENT normocephalic, head/scalp atraumatic, moist oral mucous membranes and oropharynx normal Eyes PERRL and EOMs intact bilaterally Neck no lymphadenopathy and supple Lymph Lymphatic: no lymphadenopathy noted and no lymphedema noted Resp normal respiratory effort, normal air movement and clear to auscultation bilaterally Cardio regular rate, regular rhythm, S1 normal heart sound, S2 normal heart sound and no murmurs GI normal to inspection, nondistended, normoactive bowel sounds, soft to palpation, non-tender and non-distended Extremity normal capillary refill and no clubbing, cyanosis or edema Extremity Narrative: right foot wrapped in bandage Skin Skin Narrative: as under extremities Neuro CN's II-XII intact bilaterally, no focal motor deficits and no sensory deficits noted Motor Exam: strength 5/5 throughout Psych thought process normal and cooperative Appearance: appropriate Assessment & Plan Assessment/Plan (1) Osteoarthritis of right foot: QUALIFIERS: Osteoarthritis type: primary Qualified Code(s): M19.071 - Primary osteoarthritis, right ankle and foot (2) Type 2 diabetes mellitus with diabetic polyneuropathy: QUALIFIERS: Diabetes mellitus terminal make up operator insulin use: with halfway use Qualified Code(s): E11.42 - Type 2 diabetes mellitus with diabetic polyneuropathy; 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 Podiatry on board * #Type 1 DM with peripheral neuropathy * was admitted with DKA which has now resolved. * A1C is 12.6 * on lantus. ISS. Accuchecks ACHS. Counseled aout compliance with her lantus * #Hypokalemia and hyponatremia: esolved. #MITCHELL: resolved. #Chronic anemia: Received iron infusion during this admission. Follows with Dr. Hall for her iron infusions. Hemoglobin is stable. #Hypertension: On carvedilol #Hyperlipidemia: On statin #GERD: On PPI DVT prophylaxis: Lovenox Charges/Coding Visit Charges Inpatient E&M: 72418 Subs Hosp L2
--- NOTE | 2023-09-24 11:56 | CASEMGMT ---
Spoke with therapy, pt declined this morning. Pt able to wt bear in heel, therapy states pt able to do steps for entrance into home. RN CM into pt room, pt sitting up in chair. Pt is agreeable to a FWW. Pt provided with a verbal local in network list of DME companies, pt chose [facility]. Pt denies any homegoing needs at this time.
[2023-09-24 12:13] LABS: Bedside Glucose 147 mg/dL (74-106)
[2023-09-24 14:00] VITALS: BP 113/67; PULSE 77; RESP 18; TEMP 36.6; O2SAT 98
[2023-09-24 16:57] LABS: Bedside Glucose 183 mg/dL (74-106)
--- NOTE | 2023-09-24 17:45 | PN.SURG_ITS ---
Subjective Subjective Mrs. Sherwood is a 53-year-old diabetic female seen at bedside today for postoperative day 1 consisting of minimally invasive IPJ arthroplasty, surgical skin graft site prep and application of skin graft substitute to the right hallux. DOS: 09/23/2023. Patient is POD #1. She admits her pain is well- controlled with oral Tylenol. She has kept her postop dressing clean dry and intact. She denies any strikethrough. She has been nonweightbearing with assistance of walker. No acute events overnight. She denies trauma. Denies constitutional symptoms. No other pedal complaints at this time. Objective Data Objective Data Vital Signs: Vital Signs Temp Pulse Resp BP Pulse Ox O2 Del Method 98 F 77 18 113/67 98 Room Air 09/24/23 14:00 09/24/23 14:00 09/24/23 14:00 09/24/23 14:00 09/24/23 14:00 09/24/23 14:00 Oxygen Delivery Method Room Air Weight: 114.9 kg Body Mass Index (BMI) 36.3 Intake & Output: Intake and Output for Last 24 Hours 09/22/23 09/23/23 09/24/23 23:59 23:59 23:59 Intake Total 300 / 300 110 / 310 808.75 / 808.75 Balance 300 / 300 110 / 310 808.75 / 808.75 Lab / Micro Data Attestation: I reviewed the patient's lab results. 09/24/23 06:30 09/24/23 06:30 Labs: Laboratory Results - last 24 hr 09/23/23 21:39: POC Glucose 108 H 09/24/23 06:30: WBC 4.2 L, RBC 3.12 L, Hgb 8.9 L, Hct 28.7 L, MCV 92.0, MCH 28.5, MCHC 31.0 L, RDW Std Deviation 57.1 H, RDW Coeff of Ilene 17.3 H, Plt Count 214, MPV 10.7, Immature Gran % (Auto) 0.500, Neut % (Auto) 39.1 L, Lymph % (Auto) 49.1 H, [place] % (Auto) 7.1, Eos % (Auto) 3.5, Baso % (Auto) 0.7, Absolute Neuts (auto) 1.7 L, Absolute Lymphs (auto) 2.08, Nucleated RBC % 0, Sodium 138, Potassium 4.4, Chloride 104, Carbon Dioxide 32.0, Anion Gap 2 L, BUN 18, Creatinine 0.81, Estim Creat Clear Calc 87.86, Est GFR (MDRD) Af Amer 96, Est GFR (MDRD) Non-Af 79, BUN/Creatinine Ratio 22.3 H, Glucose 206 H, Calcium 8.8 09/24/23 06:33: POC Glucose 192 H 09/24/23 09:37: POC Glucose 215 H 09/24/23 11:54: POC Glucose 147 H 09/24/23 16:33: POC Glucose 183 H Radiography Diagnostic Testing: Radiology Impression Foot X-Ray 09/23/23 10:01 IMPRESSION: Please correlate with clinical service Electronically Signed: Rancho Guevara MD at 16:59 EST Reading Location ID and State: [facility] / [place] Tel , Service support , Physical Exam Narrative Neurovascular status is unchanged. Nonpitting edema appreciated distal and proximal to the right lower extremity dressing. No evidence of strikethrough. There is mild palpatory tenderness appreciated to the plantar aspect of the right hallux. No pain with calf compression. Assessment & Plan Assessment/Plan (1) Osteoarthritis of right foot: QUALIFIERS: Osteoarthritis type: primary Qualified Code(s): M19.071 - Primary osteoarthritis, right ankle and foot PLAN: Patient was examined and evaluated. All findings were discussed with the patient. All questions were answered to the patient's satisfaction. Patient is POD #1, status post minimally invasive IPJ arthroplasty, surgical s kin graft site prep, application of skin graft substitute to the right hallux. DOS: 09/23/2023. Patient is recovering well. Keep dressing clean dry and intact. Do not remove. Reinforce if needed. Continue to focus on strict glycemic control before and after patient discharge. Patient is to be partial weightbearing to the right lower extremity to heel with assistance of surgical shoe and walker. Full weightbearing to the left lower extremity. Medicine: On board, medical management Patient is cleared from a podiatry standpoint for discharge home once cleared by medicine. Patient will follow-up with Dr. Hernandez at the wound care center next Saturday. Please call for appointment and time. Thank you for letting me be involved in the patient's care. 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
[2023-09-24 21:55] VITALS: BP 122/77; PULSE 76; RESP 16; TEMP 36.6; O2SAT 97
[2023-09-24] MEDS: traZODone 100 MG Tablet 200 MG PO (21:59)
[2023-09-24] MEDS: RIMEGEPANT SULFATE 75 MG TAB.RAPDIS PO (22:00)
[2023-09-24] MEDS: hydrOXYzine PAM 25 MG Capsule 50 MG PO (22:03)
[2023-09-24 23:00] LABS: Bedside Glucose 102 mg/dL (74-106)
[2023-09-25 00:32] VITALS: BP 130/76; PULSE 73; RESP 16; TEMP 36.4; O2SAT 93
[2023-09-25 06:24] VITALS: BP 138/82; PULSE 74; RESP 16; TEMP 36.3; O2SAT 94
[2023-09-25] MEDS: Insulin Lispro 100 UNIT/ML INSULN.PEN SC (06:26)
[2023-09-25 06:49] LABS: Bedside Glucose 303 mg/dL (74-106)
[2023-09-25 08:00] VITALS: BP 121/82; PULSE 74; RESP 18; TEMP 36.4; O2SAT 97
[2023-09-25 08:01] LABS: Absolute Lymphocyte Count 2.12 X10^3/uL (0.83-4.51); Absolute Neutrophil Count 1.6 X10^3/uL (2.0-7.7); Basophil# 0.03 X10^3/uL; Basophil% 0.7 % (0-1); Eosinophil# 0.15 X10^3/uL; Eosinophils% 3.6 % (0-5); Hematocrit 30.3 % (37-47); Hemoglobin 9.4 g/dL (12.0-15.0); Lymphocyte # 2.12 X10^3/ul (0.83-4.51); Lymphocyte % 50.7 % (19-41); Mean Corpuscular Hgb 28.7 pg (27.0-32.0); Mean Corpuscular Volume 92.7 fL (81-99); Mean Platelet Vol. 10.5 fl (6.2-12.0); Monocyte# 0.27 X10^3/uL; Monocyte% 6.5 % (0-10); NRBC Flagged by Analyzer 0 % (0-5); Neutrophil % 38.3 % (47-70); Platelet Count 217 K/mm3 (150-450); RBC Distribution Width CV 17.4 % (11.6-14.6); RBC Distribution Width SD 57.5 fl (35.1-43.9); Red Blood Count 3.27 M/mm3 (4.2-5.4); White Blood Count 4.2 K/mm3 (4.4-11.0)
[2023-09-25] MEDS: RIMEGEPANT SULFATE 75 MG TAB.RAPDIS PO (08:25)
[2023-09-25] MEDS: Potassium Chloride Oral Tablet 20 MEQ PO (08:25)
[2023-09-25] MEDS: Carvedilol 12.5 MG Tablet PO (08:26)
[2023-09-25] MEDS: Insulin Lispro 100 UNIT/ML INSULN.PEN 35 UNIT SC (09:37)
[2023-09-25 09:52] LABS: Anion Gap 5 (5-15); BUN 24 mg/dL (7-18); BUN/Creat Ratio 23.3 RATIO (10-20); Calcium,Total 8.8 mg/dL (8.5-10.1); Chloride 102 mmol/L (98-107); Creatinine, Serum 1.03 mg/dL (0.55-1.02); EST Glomerular Filtration Rate 60 mL/min (>60); Est Glom Filt Rate - Afr Amer 72 mL/min (>60); Estimated Creatinine Clearance 69.09 ml/min; Glucose 276 mg/dL (74-106); Potassium 4.4 mmol/L (3.5-5.1); Sodium Level 135 mmol/L (136-145)
[2023-09-25 10:00] VITALS: RESP 18
--- NOTE | 2023-09-25 10:10 | CASEMGMT ---
RACHEL CM in to pt. room to discuss needs at discharge. Pt. informed that we have a script for her FWW and will send that to [facility] per her request. Pt. denies having any additional needs at this time. Pt. denies having any further concerns at this time as well.
--- NOTE | 2023-09-25 10:41 | CASEMGMT ---
RACHEL MATHEW sent script for FWW to [facility] in [place] via [employer].
[2023-09-25] MEDS: Bumetanide 0.5 MG Tablet 1 MG PO (11:20)
[2023-09-25] MEDS: Escitalopram Oxalate 20 MG Tablet PO (11:20)
[2023-09-25] MEDS: DULoxetine Hcl 30 MG Capsule PO (11:20)
[2023-09-25] MEDS: Insulin Glargine-YFGN 100 UNIT/ML Pen 15 UNIT SC (11:20)
[2023-09-25] MEDS: Pantoprazole Sodium 40 MG Tablet PO (11:21)
[2023-09-25 11:36] LABS: Bedside Glucose 184 mg/dL (74-106)
--- NOTE | 2023-09-25 12:43 | CASEMGMT ---
Attached documentation for necessity of walker to [facility] and sent via [facility] at this time.
--- NOTE | 2023-09-25 15:08 | PCM.DC.SUM ---
Providers Date of Admission: 09/20/23 Date of Discharge: 09/25/23 Primary Care Physician: Dr. Migue Silveira, Consultations 09/20/23 15:11 Consult: Podiatry Routine Consulting Provider: Chandrakant Hernandez Reason for Consult: right great toe chronic ulcer, healing EMERGENT Consult: No MD Notified: Yes Date Notified: 09/20/23 Time Notified: 15:11 Method of Notification: Text Reason For Visit: DKA Diagnosis Discharge Diagnosis (1) Osteoarthritis of right foot: Status: Acute Code(s): M19.071 - Primary osteoarthritis, right ankle and foot Qualifiers: Osteoarthritis type: primary Qualified Code(s): M19.071 - Primary osteoarthritis, right ankle and foot (2) Non-pressure chronic ulcer of other part of right foot with fat layer exposed: Status: Chronic Code(s): L97.512 - Non-pressure chronic ulcer of other part of right foot with fat layer exposed (3) Type 2 diabetes mellitus with diabetic polyneuropathy: Status: Acute Code(s): E11.42 - Type 2 diabetes mellitus with diabetic polyneuropathy Qualifiers: Diabetes 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 Podiatry on board #Type 1 DM with peripheral neuropathy was admitted with DKA which has now resolved. A1C is 12.6 on lantus. ISS. Accuchecks ACHS. Counseled aout compliance with her lantus #Hypokalemia and hyponatremia: esolved. #MITCHELL: resolved. #Chronic anemia: Received iron infusion during this admission. Follows with Dr. Hall for her iron infusions. Hemoglobin is stable. #Hypertension: On carvedilol #Hyperlipidemia: On statin #GERD: On PPI DVT prophylaxis: Lovenox Medications at Discharge Home Medications pantoprazole 40 mg tablet,delayed release 40 mg PO DAILY gerd 08/03/22 nitroglycerin 0.4 mg sublingual tablet 0.4 mg sublingual Q5M angina 07/10/23 escitalopram oxalate 10 mg tablet 20 mg PO DAILY mood 07/31/23 prochlorperazine maleate 10 mg tablet 10 mg PO Q6H PRN nausea and vomiting #30 tabs 09/16/23 duloxetine 30 mg capsule,delayed release 30 mg PO DAILY mood 09/20/23 hydroxyzine pamoate 50 mg capsule 50 mg PO BID PRN mood 09/20/23 insulin lispro 100 unit/mL subcutaneous solution 35 unit subcut BID 09/20/23 lidocaine 5 % topical patch 1 patch transdermal Q24H pain 09/20/23 aspirin 81 mg tablet,delayed release 81 mg PO DAILY blood thinner 09/21/23 bumetanide 1 mg tablet 1 mg PO DAILY diuretic 09/21/23 carvedilol 12.5 mg tablet 12.5 mg PO BID blood pressure 09/21/23 metaxalone 800 mg tablet 800 mg PO TID PRN muscle relaxer 09/21/23 potassium chloride 20 mEq tablet,extended release(part/cryst) 20 meq PO DAILY supplement 09/21/23 rimegepant 75 mg disintegrating tablet (Nurtec ODT) 75 mg PO DAILY migraines 09/21/23 trazodone 100 mg tablet 100 mg PO QHS anxiety 09/21/23 insulin glargine 100 unit/mL (3 mL) subcutaneous pen (Lantus Solostar U-100 Insulin) 15 unit (0.15 mL) subcut DAILY #15 mL 09/25/23 Hospital Course Operations - (right foot hallux IPJ arthroplasty) Procedures None Summary of Care Provided Minutes Spent on Discharge: 55 Hospital Course: Patient is a 53-year-old female with past medical history as outlined which includes type 1 diabetes mellitus. She came into the ED on 09/20/2023 with a complaint of nausea and vomiting and severe dehydration as well as feeling very weak. She had been having the nausea and vomiting for several days. She felt lightheaded especially with walking. On admission, blood sugar was elevated and anion gap was also elevated. She was therefore diagnosed with DKA. He also had a chronic small healing wound with a scab on her right great toe. She was admitted and managed for DKA and an known type I diabetic. She was admitted to the ICU and hydrated aggressively with IV fluids and placed on insulin drip. She also has severe hypokalemia and hyponatremia which was thought to be due to the DKA. These were corrected. She was noted to have a right full-thickness ulceration of the big toe and had been following with podiatry. She also had MITCHELL which was thought to be due to dehydration and resolved with fluid administration. Podiatry was consulted. DKA resolved and anion gap closed. She was transitioned to subcu insulin. It appears she had not been very compliant with her insulin at home and was counseled to be very compliant. Podiatry reviewed patient and she was taken for a right great toe hallux IPJ amputation on 09/23/2023. Postop course was not complicated and she remained stable. She was discharged home on 09/25/2023. She was to be partial weightbearing on the right foot and was given a prescription for subcu Lantus 15 units daily. She was counseled to be very compliant with her insulin. She was to follow-up with her PCP and follow-up with podiatry on outpatient basis within 1 to 2 weeks. Patient seen and examined prior to discharge. She felt well and had no active complaints. She had an uneventful night. Review of systems otherwise negative. Labs and vitals reviewed. Home medication reviewed and reconciled. Physical Exam Const alert, oriented x3 and no apparent distress General Appearance: cooperative, comfortable, well kempt and well developed HEENT normocephalic, head/scalp atraumatic, hearing grossly normal bilaterally, moist oral mucous membranes and oropharynx normal Mouth: oral and palatal mucosa normal Eyes PERRL and EOMs intact bilaterally Neck no lymphadenopathy and supple Lymph Lymphatic: no lymphadenopathy noted and no lymphedema noted Resp normal respiratory effort, normal air movement and clear to auscultation bilaterally Cardio regular rate, regular rhythm, S1 normal heart sound, S2 normal heart sound and no murmurs GI normal to inspection, nondistended, normoactive bowel sounds, soft to palpation, non-tender and non-distended Extremity normal capillary refill and no clubbing, cyanosis or edema Extremity Narrative: right foot wrapped in bandage Skin Skin Narrative: as under extremities Neuro oriented x3, CN's II-XII intact bilaterally, moves all extremities, no focal motor deficits and no sensory deficits noted Sensorium / Orientation: awake Motor Exam: strength 5/5 throughout Psych thought process normal and cooperative Appearance: appropriate Weight / BMI Weight Weight: 253 lb 4.978 oz Body Mass Index (BMI) 36.3 ABG / Lab / Microbiology Data 09/25/23 07:25 09/25/23 07:25 Laboratory: Laboratory Results - last 24 hr 09/24/23 16:33: POC Glucose 183 H 09/24/23 21:57: POC Glucose 102 09/25/23 06:23: POC Glucose 303 H 09/25/23 07:25: WBC 4.2 L, RBC 3.27 L, Hgb 9.4 L, Hct 30.3 L, MCV 92.7, MCH 28.7, MCHC 31.0 L, RDW Std Deviation 57.5 H, RDW Coeff of Ilene 17.4 H, Plt Count 217, MPV 10.5, Immature Gran % (Auto) 0.200, Neut % (Auto) 38.3 L, Lymph % (Auto) 50.7 H, Tama % (Auto) 6.5, Eos % (Auto) 3.6, Baso % (Auto) 0.7, Absolute Neuts (auto) 1.6 L, Absolute Lymphs (auto) 2.12, Nucleated RBC % 0, Sodium 135 L, Potassium 4.4, Chloride 102, Carbon Dioxide 28.0, Anion Gap 5, BUN 24 H, Creatinine 1.03 H, Estim Creat Clear Calc 69.09, Est GFR (MDRD) Af Amer 72, Est GFR (MDRD) Non-Af 60, BUN/Creatinine Ratio 23.3 H, Glucose 276 H, Calcium 8.8 09/25/23 11:18: POC Glucose 184 H Radiography Diagnostic Testing: Radiology Impression Foot X-Ray 09/23/23 10:01 IMPRESSION: Please correlate with clinical service Electronically Signed: Rancho Guevara MD at 16:59 EST , D/C Instructions Discharge Diet: Low fat / Low cholesterol and 1800 Calorie Control Diet Weight Bearing Status: Partial weight bearing Call your doctor if you observe: Fever of 101 or Higher, Dizziness, Swelling in the ankles, Chest pain and Increased palpitations (irregular heartbeat) Meaningful Use Info Meaningful Use Diagnoses (Choose all that apply): None applicable Discharge Plan Admission Admit Date/Time: 09/20/23 10:24 Primary Reason for Your Visit: DKA Attending Provider: Mayte Farmer Primary Care Provider: Migue Silveira Consulting Providers: Ok Chung; Chandrakant Hernandez Instructions Additional Instructions / Restrictions: 1. Please keep right foot lower extremity dressing clean dry and intact. Do not remove. Do not get it wet. 2. Continue to rest ice and elevate your right lower extremity until follow-up in 1 week at the wound care center 3. Please continue strict glycemic control less than 150 mg/dL in the postoperative period. 4. Please follow-up with Dr. Hernandez at the wound care center next Tuesday 10/02. 5. Please reach out to Dr. Hernandez with any questions or concerns. Thank you for letting me be involved in your surgical care. Discharge Orders/Prescriptions Prescriptions: New insulin glargine [Lantus Solostar U-100 Insulin] 100 unit/mL (3 mL) insulin pen 15 unit subcut DAILY Qty: 15 2RF Continued prochlorperazine maleate 10 mg tablet 10 mg PO Q6H PRN (Reason: nausea and vomiting) Qty: 30 3RF escitalopram oxalate 10 mg tablet 20 mg PO DAILY pantoprazole 40 mg Tablet,Delayed Release (Dr/Ec) 40 mg PO DAILY duloxetine 30 mg capsule,delayed release(DR/EC) 30 mg PO DAILY hydroxyzine pamoate 50 mg capsule 50 mg PO BID PRN (Reason: mood) insulin lispro 100 unit/mL solution 35 unit subcut BID Rx Instructions: AM & PM lidocaine 5 % adhesive patch,medicated 1 patch transdermal Q24H bumetanide 1 mg tablet 1 mg PO DAILY aspirin 81 mg tablet,delayed release (DR/EC) 81 mg PO DAILY Patient Comments: TAKE 1 TABLET BY MOUTH EVERY DAY (DO NOT CRUSH OR CHEW) potassium chloride 20 mEq tablet,ER particles/crystals 20 meq PO DAILY trazodone 100 mg tablet 100 mg PO QHS metaxalone 800 mg tablet 800 mg PO TID PRN Nurtec ODT 75 mg tablet,disintegrating 75 mg PO DAILY carvedilol 12.5 mg tablet 12.5 mg PO BID Patient Comments: TAKE 1 TABLET BY MOUTH TWICE DAILY nitroglycerin 0.4 mg tablet, sublingual 0.4 mg sublingual Q5M Rx Instructions: do not exceed 3 doses per episode Referrals / Follow Up: Chandrakant Hernandez DPM [Med Staff - Active Staff] - (Follow-up with Dr. Hernandez on 10/02/2023 at the wound care center. Please call the wound care center for appointment and time.) Migue Silveira DO [Primary Care Provider] - Within 1 Week Disposition Disposition (needs filled in before D/C Order can be placed): Home, Self Care Charges/Coding Visit Charges Inpatient E&M: 37210 Disch Hosp >30min
--- NOTE | 2023-09-25 15:18 | CASEMGMT ---
RACHEL MATHEW called [facility] to do amor check on pt's new insulin pen - Lantus. RACHEL MATHEW was informed by pharmacy that pt's co-pay is $1.06.
[2023-09-25 15:26] VITALS: BP 132/82; PULSE 70; RESP 16; TEMP 36.8; O2SAT 96
--- NOTE | 2023-09-25 15:29 | CASEMGMT ---
Pt. has order in for discharge. RACHEL CM in to pt. room to discuss needs at discharge. Pt. informed that the co-pay for her Lantus insulin pen in $1.06 and pt's voices she can afford this. Pt. states she should be getting an insulin pump tomorrow. Pt. states she does have pen needles as well. Pt. is waiting on her walker to be delivered to her room. Pt. denies having any additional needs concerning discharge. Pt. denies having any further questions/concerns at this time.
[2023-09-25 16:27] LABS: Bedside Glucose 156 mg/dL (74-106)
== END 2023-09-25 17:20 | disposition home or self-care (01) | DRG 623 ==
LOC: ED 09:59 → ICU 09-21 10:53 → MS3 09-23 06:38 → ICU 09-23 12:08
PROVIDERS: Anesthesiology; Podiatrist Foot & Ankle Surgery; Admitting Provider Internal Medicine; Emergency Provider Emergency Medicine; PCP Student in an Organized Health Care Education/Training Program; Visit Provider Student in an Organized Health Care Education/Training Program
PROC: 0JBQ0ZZ Excision of Right Foot Subcutaneous Tissue and Fascia, Open Approach (ICD-10-PCS; principal; 2023-09-23 08:40)
DX: E10.10 Type 1 diabetes mellitus with ketoacidosis without coma (principal); N17.9 Acute kidney failure, unspecified; E87.1 Hypo-osmolality and hyponatremia; E10.51 Type 1 diabetes mellitus with diabetic peripheral angiopathy without gangrene; E10.42 Type 1 diabetes mellitus with diabetic polyneuropathy; E10.621 Type 1 diabetes mellitus with foot ulcer; D63.1 Anemia in chronic kidney disease; N18.30 Chronic kidney disease, stage 3 unspecified; L97.512 Non-pressure chronic ulcer of other part of right foot with fat layer exposed; E10.22 Type 1 diabetes mellitus with diabetic chronic kidney disease; Z79.4 Long term (current) use of insulin; I12.9 Hypertensive chronic kidney disease with stage 1 through stage 4 chronic kidney disease, or unspecified chronic kidney disease; E86.1 Hypovolemia; E87.6 Hypokalemia; E78.2 Mixed hyperlipidemia; M19.071 Primary osteoarthritis, right ankle and foot; K21.9 Gastro-esophageal reflux disease without esophagitis; E66.9 Obesity, unspecified; Z79.899 Other long term (current) drug therapy; Z68.36 Body mass index [BMI] 36.0-36.9, adult; Z98.84 Bariatric surgery status
CPT/HCPCS: 36415; 73630; 76000; 80048; 80076; 81001; 81025; 82009; 82803; 82962; 83036; 83735; 83930; 84100; 85025; 85610; 85730; 93005; 99285; J7030; J7050; A4216; J2405; J2916; J7799

== ENCOUNTER 2023-10-02 09:42 | Day surgery (SDC) | payer OTHER, SELFPAY ==
[2023-10-02 10:24] VITALS: BP 141/90; PULSE 84; RESP 16; TEMP 36.2; O2SAT 100; BMI 37.0
[2023-10-02] MEDS: Lactated Ringers 1,000 ML 15 ML IV (10:24)
--- NOTE | 2023-10-02 11:00 | PCM.HP.BLA ---
History and Physical Date of Admission: 10/02/23 [facility] [address] [place] [address] OFFICE VISIT Date of Service: 03/19/23 MR#: [id number] Acct: [id number] Name: JANNETH SHEPHERD Rep #: [id number] : 1970 Provider: Juan Curtis, Age/Sex: 52/F [place] [facility] [place]: Signed Intake Vital Signs 09/07/2214:30 01/31/2308:51 Height 5 ft 10 in 6 ft Weight: 265 lb BMI 35.9 BP 147/84 H Respiration 18 Pulse 85 Temp 97.6 F L Temp Source Temporal Intake Visit Reasons: FU Allergies lactase [From Dairy Aid] Allergy (Severe, Verified 09/07/22 14:33) diarrhea codeine Allergy (Intermediate, Verified 09/07/22 14:33) mental statusdiphenhydramine [From Benadryl Allergy] Allergy (Intermediate, Verified 09/07/22 14:33) mental statusquetiapine [From Seroquel] Allergy (Intermediate, Verified 09/07/22 14:33) about killed me - went into DKAmorphine Allergy (Verified 09/07/22 14:33) NEEDS FOLLOW-UP [facility] Medical History Acute necrosis of pancreas Alcohol use Allergies Anemia Anxiety Arthritis Atrial fibrillation Back problem COVID Depression Dietary restriction Excessive bleeding Gastritis GERD (gastroesophageal reflux disease) History of cardiac murmur History of edema History of renal disease HTN (hypertension) Hyperlipidemia Insulin dependent diabetes mellitus Leg cramps Liver disease Migraine Shortness of breath on exertion Sleep apnea Tubular adenoma of colon Vitamin deficiency Wears glasses Wears partial dentures Surgical History History of esophagogastroduodenoscopy (EGD) History of hysterectomy Hx of colonoscopy Family History Other Arthritis Cancer Depression Diabetes Kidney disease Social History Smoking Status: Never smoker alcohol intake: current HPI HPI Details: JANNETH SHEPHERD, is a 52 F who presents to the office today for PMH includes DM II with neuropathy (poorly controlled), hematuria, depression, bipolar disorder, HTN, osteoarthritis, thyromegaly, systolic ejection murmur. Xray of abdomen 08.28.21 for lower abdominal pain and constipation found nonobstructive bowel gas pattern. US abdomen 11.17.21 found common duct dilation at 10mm at lópez hepatis and remain dilated into distal portion. Remained of study without abnormality. *BGI Established 11.24.21 for evaluation of postprandial nausea with bad taste in her mouth. EGD and colonoscopy 01.02.22 with LA Grade A reflux esophagitis; erythematous mucosa of antrum (gastritis) and pylorus. H.pylori negative. Colonoscopy found one 5mm tubular adenoma polyp, retrieved; congested mucosa of RS, sigmoid colons, splenic flexure, transverse colon and ascending colon. OV 01.17.22 with recommendation of ERCP to address biliary ductal abnormalities. 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 Cytology negative for malignant cells. [facility] hospitalization 03.01.22-03.02.22 Following ERCP she had significant abdominal pain and was admitted to [facility] for observation. Discharged without further intervention. Biochemical CA19-9 WNL. Lipase 03.02.[address] Silveira stating that Janneth was having difficulty with constipation and rectal bleeding. Phone call placed to Janneth 03.05.22 to discuss. Denies recent or current rectal bleeding. Admits to difficulty with Colace. Advised to increase Linzess to 290mg QD. [facility] ED presentation 03.06.22 with abdominal pain. Noted lipase elevation consistent with pancreatitis. Fluid and Zofran provided; Biochemical workup without comment (lipase WNL 136) and she was discharged home. [facility] hospitalization 03.12.22-03.20.22 with fever and decreased appetite. She was admitted for further evaluation of CT scan abnormality of 9cm collection of fluid versus necrotic collection along tail of pancreas. Started on TPN r/t ongoing nausea and vomiting. CT abd/pel 03.12.22 noting CBD stent placement; pancreas with surrounding fat stranding of pancreatic tail with large fluid collection 8.3x8.1x9cm around the tail with large amount of free air. CT abd/pel 03.15.22 noting bilateral pneumonia; gallbladder contracted; biliary stent in place; diffuse enlargement of pancreas with juliette-pancreatic edema suggesting acute pancreatitis, pancreatic tail fluid collection containing air measuring 10.2x5.2x8.3cm. US abd 03.16.22 for ascites eval without ascites present. CT abd/pel 03.19.22 noting biliary stent with pneumobilia; no changes in the fluid collection on the tail of the pancreas. [facility] transfer 03.20.22 for further treatment of fluid collection. Discharged 03.22.22 CT abd/pel [facility] with pancreatic protocol 03.21.22 noting 11.1x8.5cm collection of air and fluid between stomach and spleen along pancreatic tail which closely abuts the gastric wall and infiltration the splenic hilum, partially nonencapsulated and heterogeneous; severe attenuation of the distal splenic vein at the level above described collection concerning for occlusion, portal and vein and portal splenic confluence remain patent. Outpatient f/u with [facility] CT abd/pel [facility] for necrotizing pancreatitis 04.13.22 noting borderline generalized parenchymal volume loss of pancreas, with irregular low-attenuation collection adjacent to pancreatic tail, splenic hilum and posterior lateral stomach with a few foci of air in the collection, this collection is decreased in size; stomach mildly distended. CT abd/pel [facility] for necrotizing pancreatitis 05.17.22 noting pancreatic inflammatory changes contiguous with pancreatic tail and peripancreatic region with complex fluid collection containing foci of air has decreased in size now measuring 2.3x2.2cm. Gallbladder contracted. Cholecystectomy 05.24.22 [facility] ED presentation 08.04.22 with nausea with emesis and diarrhea. She was given IVF, pain medication and Zofran and discharged home in stable condition. PCP workup CT abd/pel 11.14.22 Linda Jones ordered by PCP noting mild prominence of intrahepatic ducts and CBD with dilation up to 14mm at lópez hepatis with distal tapering without calculus; mild dilation of pancreatic duct in head only; mildly atrophic pancreas. OV 09.07.22 biochemical workup. Biochemical workup CBC, CMP (glucose *H742), lipase, amylase, triglycerides without pertinent abnormality. ? CRP H3.40 [facility] ED presentation 09.07.22 for evaluation regarding BS following biochemical workup from this clinic with BS 742. Fluids and insulin administered and discharged home. OV 03.19.23 nausea, reflux continue to be an issue that is triggered specifically by spicy foods and soda, she does practice avoidance of these. ROS Const Constitutional: Positive for weight change (loss) Gastro GI: Positive for nausea/dyspepsia Psych Psychiatric: Positive for anxiety and Positive for depression Endo Endocrine: Positive for weight change (loss) Quality Reporting Tobacco Screening ([facility] 138) Smoking Status: Never smoker Assessment and Plan Assessment and Plan (1) Pancreatitis: Status: Chronic Qualifiers: Acute pancreatitis complication: unspecified Chronicity: acute Pancreatitis type: other Qualified Code(s): K85.80 - Other acute pancreatitis without necrosis or infection Plan: 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 Her laast HgbA1c was above 13. I willl send her down to get labs to see if she has any acidosis at this time. We will also check amylase and lipase. 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 Think that it is driving her constipation and nausea secondary to gastroparesis. She antidepressant medicines therefore I am very reluctant to start metoclopramide therapy. We will see what her next hemoglobin A1c is and make recommendations at that time. (3) Constipation: Status: Chronic Plan: We will put her back on 45 mcg once a day because she had a good response to responds to the medication. Medications: Refilled linaclotide (Linzess) 290 mcg PO DAILY 90 caps 3RF I have examined the patient and the H&P has been reviewed. There are no clinical changes since date of exam.
[2023-10-02] MEDS: 0.9% Saline Lock 10 ML Syringe IV (11:50)
[2023-10-02] MEDS: Botulinum Toxin A 100 Units Vial IJ (11:51)
[2023-10-02] MEDS: 0.9% Normal Saline (Pres. free 10 ML Vial (11:51)
[2023-10-02 12:00] VITALS: BP 123/81; BP 141/90; PULSE 75; RESP 18; TEMP 37.5; O2SAT 100
[2023-10-02 12:05] VITALS: BP 132/83; BP 141/90; PULSE 78; RESP 18; O2SAT 100
--- NOTE | 2023-10-02 12:06 | OP.CCLET_ITS ---
10/02/2023 Migue Silveira Do Re : Upper GI endoscopy procedure for Janneth Sherwood Dear Jordana This procedure was performed on Monday, October 02, 2023. My impressions and recommendations are as follows: Impressions : - Normal esophagus. - Hiatal hernia. - A small amount of food (residue) in the stomach. Injected with botulinum toxin. - No gross lesions in the first portion of the duodenum. - No specimens collected. Recommendations : - Discharge patient to home. - Resume previous diet. - Continue present medications. My findings are described in the full procedure note, which is enclosed. If I can be of further assistance, please feel free to contact me at . Sincerely, Juan Curtis, 10/02/2023 12:05:51 PM This report has been signed electronically.
--- NOTE | 2023-10-02 12:06 | OP.EGD_ITS ---
Patient Name: Janneth Sherwood Procedure Date: 10/02/2023 11:43 AM Date of : 1970 Age: 53 Procedure: Upper GI endoscopy Indications: Epigastric abdominal pain, Failure to respond to medical treatment Providers: Juan Curtis DO Referring MD: Migue Silveira Do Medicines: Monitored Anesthesia Care Patient Profile: This is a 53 year old female. Refer to note in patient chart for documentation of history and physical. Patient has symptoms of chronic abdominal distention and chronic epigastric abdominal pain. Complications: No immediate complications. Procedure: Pre-Anesthesia Assessment: - Prior to the procedure, a History and Physical was performed, and patient medications and allergies were reviewed. The risks and benefits of the procedure and the sedation options and risks were discussed with the patient. All questions were answered and informed consent was obtained. Patient identification and proposed procedure were verified by the physician. Mental Status Examination: normal. Prophylactic Antibiotics: The patient does not require prophylactic antibiotics. Prior Anticoagulants: The patient has taken no anticoagulant or antiplatelet agents. After reviewing the risks and benefits, the patient was deemed in satisfactory condition to undergo the procedure. The anesthesia plan was to use monitored anesthesia care (MAC). Immediately prior to administration of medications, the patient was re-assessed for adequacy to receive sedatives. The heart rate, respiratory rate, oxygen saturations, blood pressure, adequacy of pulmonary ventilation, and response to care were monitored throughout the procedure. The physical status of the patient was re-assessed after the procedure. After obtaining informed consent, the endoscope was passed under direct vision. Throughout the procedure, the patient's blood pressure, pulse, and oxygen saturations were monitored continuously. The Endoscope was introduced through the mouth, and advanced to the second part of duodenum. The upper GI endoscopy was accomplished without difficulty. The patient tolerated the procedure well. Scope In: 11:47:50 AM Scope Out: 11:55:35 AM Total Procedure Duration Time 0 hours 7 minutes 45 seconds Findings: The examined esophagus was normal. A hiatal hernia was present. A small amount of food (residue) was found in the gastric body. Area was successfully injected with 100 units botulinum toxin. No gross lesions were noted in the first portion of the duodenum. Impression: - Normal esophagus. - Hiatal hernia. - A small amount of food (residue) in the stomach. Injected with botulinum toxin. - No gross lesions in the first portion of the duodenum. - No specimens collected. Recommendation: - Discharge patient to home. - Resume previous diet. - Continue present medications. Procedure Code(s): --- Professional --- 85763, Esophagogastroduodenoscopy, flexible, transoral; with directed submucosal injection(s), any substance CPT copyright 2021 [employer]. All rights reserved. The codes documented in this report are preliminary and upon on site wastewater systems technician review may be revised to meet current compliance requirements. Juan Curtis DO 10/02/2023 12:05:51 PM This report has been signed electronically. Number of Addenda: 0 Note Initiated On: 10/02/2023 11:43 AM
[2023-10-02 12:10] VITALS: BP 140/86; BP 141/90; PULSE 77; RESP 16; O2SAT 100
[2023-10-02 12:15] VITALS: BP 134/90; BP 141/90; PULSE 85; RESP 18; TEMP 37.5; O2SAT 97
[2023-10-02 12:47] VITALS: BP 141/90
== END 2023-10-02 12:52 | disposition home or self-care (01) ==
LOC: EN 09:49 → AC 09:49
PROVIDERS: PCP Student in an Organized Health Care Education/Training Program; Referring Provider Student in an Organized Health Care Education/Training Program; Visit Provider Internal Medicine Gastroenterology
PROC: 0DJ08ZZ Inspection of Upper Intestinal Tract, Via Natural or Artificial Opening Endoscopic (ICD-10-PCS; CPT 43235; principal; 2023-10-02 10:55)
DX: K44.9 Diaphragmatic hernia without obstruction or gangrene (principal); I13.0 Hypertensive heart and chronic kidney disease with heart failure and stage 1 through stage 4 chronic kidney disease, or unspecified chronic kidney disease; I50.32 Chronic diastolic (congestive) heart failure; E11.40 Type 2 diabetes mellitus with diabetic neuropathy, unspecified; E11.22 Type 2 diabetes mellitus with diabetic chronic kidney disease; Z79.4 Long term (current) use of insulin; N18.30 Chronic kidney disease, stage 3 unspecified; K85.90 Acute pancreatitis without necrosis or infection, unspecified; K59.00 Constipation, unspecified; G47.33 Obstructive sleep apnea (adult) (pediatric); D63.1 Anemia in chronic kidney disease; F32.A Depression, unspecified; F41.9 Anxiety disorder, unspecified; K21.9 Gastro-esophageal reflux disease without esophagitis; Z86.16 Personal history of COVID-19; Z79.82 Long term (current) use of aspirin; Z79.899 Other long term (current) drug therapy
CPT/HCPCS: 43236; A4216; J0585; J2405; J3490

== ENCOUNTER 2023-10-09 13:00 | Outpatient (RCR) | payer OTHER, SELFPAY ==
[2023-09-27 00:47] VITALS: BP 132/70; PULSE 82; RESP 18; TEMP 35.8; BMI 38.7
[2023-10-02 13:51] VITALS: BP 146/78; PULSE 97; RESP 16; BMI 38.7
--- NOTE | 2023-10-02 15:25 | PCM.WC.PN ---
History of Present Illness Date of Service: 10/02/23 Chief Complaint: Right and left DFU ulcers History of Wound: Mrs. Sherwood is a 53-year-old uncontrolled diabetic seen in the wound care center today with a chief complaint of full-thickness ulceration to the right big toe. As the patient presents today at the wound care center she is vomiting secondary to feeling nauseous and sick. She admits to not eating for the past 2 days. When questioned about her blood sugar levels, she says that her monitor only reads high and does not give a number. When tested in the wound care center today the patient's blood sugar was greater than 600 as are meter can only go as high as 600 mg/dL. She admits to vomiting and chills. She denies any trauma. Denies any other pedal complaints. Subjective Subjective Janneth Presley is a 53-year-old diabetic female presenting to the wound care center today for follow-up and evaluation of a full-thickness wound to the plantar aspect of her right hallux. Patient is status post hallux IPJ arthroplasty, surgical skin graft prep site with application of skin graft substitute all to the right hallux. DOS: 09/23/2023. Patient has been partial weightbearing in surgical shoe with compression wrap. She is grateful for her care. She admits to getting her insulin pump and has had her blood sugar well-controlled below 150 mg/dL. She denies any trauma. Denies constitutional symptoms. No other pedal complaints at this time. Objective Data Objective Data Vital Signs: Vital Signs Temp Pulse Resp BP O2 Del Method 96.5 F L 97 16 146/78 H Room Air 09/27/23 00:47 10/02/23 13:51 10/02/23 13:51 10/02/23 13:51 10/02/23 13:51 Oxygen Delivery Method Room Air Weight: 122.47 kg Body Mass Index (BMI) 38.7 Physical Exam Narrative Vascular: DP and PT pulses are palpable. CFT is brisk. Evidence of nonpitting edema appreciated to the left forefoot on the dorsal aspect. Skin temperature great is warm to warm from proximal ankle to distal digits. Neurological: Light touch intact. Protective sensation is diminished. Dermatological: Right hallux ulceration is now healed with no sign of infection or surgical wound dehiscence. Sutures intact to incision to the lateral aspect of the hallux. No erythema or proximal streaking noted to the right hallux. Musculoskeletal: Increased range of motion to the IPJ secondary to arthroplasty right hallux. No pain to palpation to the healed full-thickness ulceration. No pain on palpation to the incision to the lateral aspect of the right hallux. No pain with calf compression. 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 ) Arrival Mode Ambulatory Transfer Assistance None Accompanied by mom Patient Identification Verified (Name & Yes ) Patient Requires Transmission-Based No Precautions Height and Weight Body Mass Index (BMI) 38.7 BMI Classification Obese Vital Signs Pulse Rate (60-100) 97 Pulse Location Monitor Respiratory Rate (12-18) 16 Respiratory rate source Observation Oxygen Delivery Method Room Air Blood Pressure (90/60-120/80) 146/78 H Blood Pressure Mean (mm Hg) 100 Source Monitor Position Sitting Blood Pressure Location Left Arm History Since Last Visit- (Skip if this is Patient's initial visit) Have you changed medications since your No last visit? Any new allergies or adverse reactions No Had a fall/change in ADL's that may No increase risk of falls Signs or symptoms of abuse and/or No neglect since last visit Have you been in the hospital since your Yes last visit? Has dressing in place as prescribed Yes Has compression in place as prescribed Yes Has offloadiing in place as prescribed N/A Experienced any changes in pain level or No management Pain Scale: 0-10 Numeric Is Patient Pain Free? Yes - Nurse 1 - General Ulcer Measurement Start: 10/02/23 13:51 Freq: Status: Active Protocol: Activity Type Activity Date Activity User E-sign Co-sign Detail Recorded Client Recorded Date Recorded By Document 10/02/23 13:51 [facility] Desktop 10/02/23 13:55 [facility] 10/02/23 13:51 Wound Center Nurse 1 4. R hallux -Combined with other wound No -Current Size (cm) - Length 0.1 -Current Size (cm) - Width 0.1 -Current Size (cm) - Depth 0.1 -Total Square Cm 0.01 -Date of Last Picture (Recall this 10/02/23 field) -Photo Taken Yes -Exudate Amt Medium -Exudate Type Serosanguineous -Wound Margin Distinct, Outline Attached -Texture (Megan-wound Skin Appearance) Assessed -Moisture (Megan-wound Skin Appearance) Assessed -Color (Megan-wound Skin Appearance) Assessed -Temperature (Megan-wound Skin No Abnormality Appearance) (Pt Warm) -Tenderness on Palpation (Megan-wound No Skin Appearance) -Ulcer Cleansing Soap and Water -Foul Odor after Cleansing No WC - Nurse 2 - General Ulcer CM Notes Start: 10/02/23 13:51 Freq: Status: Active Protocol: Activity Type Activity Date Activity User E-sign Co-sign Detail Recorded Client Recorded Date Recorded By Document 10/02/23 14:25 Laptop 10/02/23 14:26 Edit Result 10/02/23 14:25 JF (1) Laptop 10/02/23 14:27 (1) 4. R hallux - Post Debridement (cm) - Length => 0 - Post Debridement (cm) - Width => 0 - Post Debridement (cm) - Depth => 0 - Total Square (Post) (cm) => 0 - Area of Debridement (cm) - Length => 0 - Area of Debridement (cm) - Width => 0 - Total Square (Area) (cm) => 0 - Wound/Ulcer Outcome Healed- Graft => Healed- => Epithelialized 10/02/23 14:25 Wound Center Nurse 2 -Correct Patient No -Correct Side, Site, Position No -Correct Procedure No -Procedure Performed No -Post Debridement (cm) - Length 0 -Post Debridement (cm) - Width 0 -Post Debridement (cm) - Depth 0 -Total Square (Post) (cm) 0 -Area of Debridement (cm) - Length 0 -Area of Debridement (cm) - Width 0 -Total Square (Area) (cm) 0 -Wound/Ulcer Outcome Healed- Epithelialized Pain Scale: 0-10 Numeric Is Patient Pain Free? Yes SANTIAGO - Nurse 3 - General Ulcer D/C NN Start: 10/02/23 13:51 Freq: Status: Active Protocol: Activity Type Activity Date Activity User E-sign Co-sign Detail Recorded Client Recorded Date Recorded By Document 10/02/23 14:36 [facility] Desktop 10/02/23 14:38 [facility] 10/02/23 14:36 Wound Care Center Nurse 3 4. 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 Yes WC - Visit Discharge Discharge Condition Stable Ambulatory Status Ambulatory Transportation Private Auto Accompanied by mom Assessment/Plan Assessment/Plan (1) Ulcer of foot with fat layer exposed: CODE(S): L97.502 - Non-pressure chronic ulcer of other part of unspecified foot with fat layer exposed QUALIFIERS: Laterality: right Qualified Code(s): L97.512 - Non-pressure chronic ulcer of other part of right foot with fat layer exposed PLAN: Patient was examined and evaluated. All findings were discussed with the patient. All questions were answered to the patient's satisfaction. The patient is status post right hallux IPJ arthroplasty, surgical skin graft site prep with application of skin graft substitute to the right hallux. Date of surgery was 09/23/2023. Patient shows evidence of healing to the plantar ulceration. The incision is intact with skin edges well coapted no sign of infection. Patient is cleared to go back to work with compressive dressing and surgical shoe. The incision was dressed with Betadine and sterile Band-Aid. Patient is to change this daily. She was instructed not to get her right foot wet. She will follow-up in 1 week for evaluation. She left the office pleased with the visit. 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
[2023-10-09 13:10] VITALS: BP 137/85; PULSE 77; RESP 16; BMI 38.7
--- NOTE | 2023-10-09 13:47 | PCM.WC.PN ---
History of Present Illness Date of Service: 10/09/23 Chief Complaint: Right and left DFU ulcers History of Wound: Mrs. Sherwood is a 53-year-old uncontrolled diabetic seen in the wound care center today with a chief complaint of full-thickness ulceration to the right big toe. As the patient presents today at the wound care center she is vomiting secondary to feeling nauseous and sick. She admits to not eating for the past 2 days. When questioned about her blood sugar levels, she says that her monitor only reads high and does not give a number. When tested in the wound care center today the patient's blood sugar was greater than 600 as are meter can only go as high as 600 mg/dL. She admits to vomiting and chills. She denies any trauma. Denies any other pedal complaints. Subjective Subjective Mrs. Sherwood is a 53-year-old diabetic female presenting for follow-up evaluation status post right hallux IPJ arthroplasty with skin graft application. Patient has kept her postoperative dressing clean dry and intact during her last visit. She has kept her blood sugar regulated. She denies trauma. Eyes constitutional symptoms. No other pedal complaints at this time. Objective Data Objective Data Vital Signs: Vital Signs Temp Pulse Resp BP O2 Del Method 96.5 F L 77 16 137/85 H Room Air 09/27/23 00:47 10/09/23 13:10 10/09/23 13:10 10/09/23 13:10 10/09/23 13:10 Oxygen Delivery Method Room Air Weight: 122.47 kg Body Mass Index (BMI) 38.7 Physical Exam Narrative Neurovascular status unchanged. Nonpitting edema appreciated to the right hallux. Incision is well coapted with suture. No sign of surgical wound dehiscence or infection. Full-thickness ulceration to plantar hallux is healed. No pain with calf compression. 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/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 OPERATOR ) ) Arrival Mode Ambulatory Ambulatory Transfer Assistance None None Accompanied by mom Patient Identification Verified (Name & Yes Yes ) Patient Requires Transmission-Based No No Precautions Height and Weight Body Mass Index (BMI) 38.7 38.7 BMI Classification Obese Obese Vital Signs Pulse Rate (60-100) 97 77 Pulse Location Monitor Monitor Respiratory Rate (12-18) 16 16 Respiratory rate source Observation Observation Oxygen Delivery Method Room Air Room Air Blood Pressure (90/60-120/80) 146/78 H 137/85 H Blood Pressure Mean (mm Hg) 100 102 Source Monitor Monitor Position Sitting Sitting Blood Pressure Location Left Arm Left Arm History Since Last Visit- (Skip if this is Patient's initial visit) Have you changed medications since your No No last visit? Any new allergies or adverse reactions No No Had a fall/change in ADL's that may No No increase risk of falls Signs or symptoms of abuse and/or No No neglect since last visit Have you been in the hospital since your Yes No last visit? Has dressing in place as prescribed Yes No Has compression in place as prescribed Yes N/A Has offloadiing in place as prescribed N/A N/A Experienced any changes in pain level or No No management Left Footwear Regular Shoe Right Footwear Slipper Pain Scale: 0-10 Numeric Is Patient Pain Free? Yes Yes - Nurse 1 - General Ulcer Measurement Start: 10/02/23 13:51 Freq: Status: Active Protocol: Activity Type Activity Date Activity User E-sign Co-sign Detail Recorded Client Recorded Date Recorded By Document 10/02/23 13:51 [facility] Desktop 10/02/23 13:55 [facility] Document 10/09/23 13:10 [facility] Desktop 10/09/23 13:14 [facility] 10/02/23 10/09/23 13:51 13:10 Wound Center Nurse 1 4. R hallux -Combined with other wound No No -Current Size (cm) - Length 0.1 0 -Current Size (cm) - Width 0.1 0 -Current Size (cm) - Depth 0.1 0 -Total Square Cm 0.01 0 -Date of Last Picture (Recall this 10/02/23 field) -Photo Taken Yes -Exudate Amt Medium -Exudate Type Serosanguineous -Wound Margin Distinct, Outline Attached -Texture (Megan-wound Skin Appearance) Assessed Assessed, Scarring -Moisture (Megan-wound Skin Appearance) Assessed Assessed,Dry/ Scaly -Color (Megan-wound Skin Appearance) Assessed Assessed -Temperature (Megan-wound Skin No Abnormality Appearance) (Pt Warm) -Tenderness on Palpation (Megan-wound No Skin Appearance) -Ulcer Cleansing Soap and Water Soap and Water -Foul Odor after Cleansing No No -Wound Comment(s) sutures intact WC - Nurse 2 - General Ulcer CM Notes Start: 10/02/23 13:51 Freq: Status: Active Protocol: Activity Type Activity Date Activity User E-sign Co-sign Detail Recorded Client Recorded Date Recorded By Document 10/02/23 14:25 Laptop 10/02/23 14:26 Edit Result 10/02/23 14:25 JF (1) Laptop 10/02/23 14:27 Document 10/09/23 13:27 Desktop 10/09/23 13:28 (1) 4. R hallux - Post Debridement (cm) - Length => 0 - Post Debridement (cm) - Width => 0 - Post Debridement (cm) - Depth => 0 - Total Square (Post) (cm) => 0 - Area of Debridement (cm) - Length => 0 - Area of Debridement (cm) - Width => 0 - Total Square (Area) (cm) => 0 - Wound/Ulcer Outcome Healed- Graft => Healed- => Epithelialized 10/02/23 10/09/23 14:25 13:27 Wound Center Nurse 2 4. R hallux -Correct Patient No No -Correct Side, Site, Position No No -Correct Procedure No No -Procedure Performed No No -Post Debridement (cm) - Length 0 0 -Post Debridement (cm) - Width 0 0 -Post Debridement (cm) - Depth 0 0 -Total Square (Post) (cm) 0 0 -Area of Debridement (cm) - Length 0 0 -Area of Debridement (cm) - Width 0 0 -Total Square (Area) (cm) 0 0 -Wound/Ulcer Outcome Healed- Healed- Epithelialized Epithelialized Pain Scale: 0-10 Numeric Is Patient Pain Free? Yes Yes WC - Nurse 3 - General Ulcer D/C NN Start: 10/02/23 13:51 Freq: Status: Active Protocol: Activity Type Activity Date Activity User E-sign Co-sign Detail Recorded Client Recorded Date Recorded By Document 10/02/23 14:36 [facility] Desktop 10/02/23 14:38 [facility] Document 10/09/23 13:29 Desktop 10/09/23 13:29 10/02/23 10/09/23 14:36 13:29 Wound Care Center Nurse 3 4. 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 Yes Yes WC - Visit Discharge Discharge Condition Stable Stable Ambulatory Status Ambulatory Ambulatory Transportation Private Auto Private Auto Accompanied by mom Medication Reconcilliation completed & Yes provided to patient/care provider Clinical Summary of Care Provided Yes Assessment/Plan Assessment/Plan (1) Diabetes mellitus with diabetic polyneuropathy: CODE(S): E11.42 - Type 2 diabetes mellitus with diabetic polyneuropathy QUALIFIERS: Diabetes mellitus type: type 2 Diabetes mellitus senior care insulin use: with senior care use Qualified Code(s): E11.42 - Type 2 diabetes mellitus with diabetic polyneuropathy; 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 All findings were discussed with the patient. All questions were answered to the patient's satisfaction. The patient's right hallux is now healed. Patient will be discharged from the wound care center and will follow-up with Dr. Hernandez in his private office for regular diabetic foot checks as well as authorization for diabetic shoes. Follow-up as needed. (2) Diabetic ulcer of foot associated with diabetes mellitus due to underlying condition, limited to breakdown of skin: CODE(S): E08.621 - Diabetes mellitus due to underlying condition with foot ulcer; L97.501 - Non-pressure chronic ulcer of other part of unspecified foot limited to breakdown of skin QUALIFIERS: Diabetic foot ulcer location: toe Laterality: left Qualified Code(s): E08.621 - Diabetes mellitus due to underlying condition with foot ulcer; L97.521 - Non-pressure chronic ulcer of other part of left foot limited to breakdown of skin
== END 2023-10-10 16:13 | disposition home or self-care (01) ==
LOC: WC 13:00
PROVIDERS: PCP Student in an Organized Health Care Education/Training Program; Referring Provider Student in an Organized Health Care Education/Training Program; Visit Provider Podiatrist Foot & Ankle Surgery
DX: E11.621 Type 2 diabetes mellitus with foot ulcer (principal); L97.512 Non-pressure chronic ulcer of other part of right foot with fat layer exposed; L97.521 Non-pressure chronic ulcer of other part of left foot limited to breakdown of skin; E11.42 Type 2 diabetes mellitus with diabetic polyneuropathy; Z79.4 Long term (current) use of insulin; Z96.41 Presence of insulin pump (external) (internal)
CPT/HCPCS: 99213; G0463

== ENCOUNTER 2023-11-27 13:00 | Outpatient (RCR) | payer OTHER, SELFPAY ==
[2023-10-30 13:08] VITALS: BP 140/84; PULSE 74; RESP 18; TEMP 35.6
--- NOTE | 2023-10-30 13:44 | PCM.WC.PN ---
History of Present Illness Date of Service: 10/30/23 Chief Complaint: Right and left DFU ulcers History of Wound: Mrs. Sherwood is a 53-year-old uncontrolled diabetic seen in the wound care center today with a chief complaint of full-thickness ulceration to the right big toe. As the patient presents today at the wound care center she is vomiting secondary to feeling nauseous and sick. She admits to not eating for the past 2 days. When questioned about her blood sugar levels, she says that her monitor only reads high and does not give a number. When tested in the wound care center today the patient's blood sugar was greater than 600 as are meter can only go as high as 600 mg/dL. She admits to vomiting and chills. She denies any trauma. Denies any other pedal complaints. Subjective Subjective Mrs. Sherwood is a 53-year-old female who is diabetic with an elevated blood sugar 300 mg/dL today in clinic presenting for reopening of a right hallux full-thickness ulceration. Patient underwent elective IPJ arthroplasty with skin graft substitute to the full-thickness ulceration of the right hallux. After weightbearing for approximately 2 to 3 weeks while at work the patient's wound reopened. She currently is on 2 antibiotics from her primary care physician Augmentin and Bactrim secondary to an upper respiratory infection. She does deny trauma. Denies constitutional symptoms. No other complaints at this time. Objective Data Objective Data Vital Signs: Vital Signs Temp Pulse Resp BP O2 Del Method 96.1 F L 74 18 140/84 H Room Air 10/30/23 13:08 10/30/23 13:08 10/30/23 13:08 10/30/23 13:08 10/30/23 13:08 Oxygen Delivery Method Room Air Physical Exam Narrative Vascular: DP and PT pulses are palpable. CFT is brisk. Evidence of nonpitting edema appreciated to the left forefoot on the dorsal aspect. Skin temperature great is warm to warm from proximal ankle to distal digits. Neurological: Light touch intact. Protective sensation is diminished. Dermatological: Ecchymosis improved appreciated to the left foot second and third metatarsal. Evidence of full-thickness ulceration to the right hallux measuring 0.4 x 0.4 x 0.1 cm. Evidence of hyperkeratotic periwound. No drainage, erythema or proximal streaking, probe to bone or sign infection. Excisional excisional debridement down to including subcutaneous tissue of the full-thickness ulceration of the right hallux with number 5 mm curette without incident. Predebridement measurements eschar. Postdebridement measurements are 0.4 x 0.4 x 0.1 cm. Musculoskeletal: Muscle strength 5 and 5 in all quadrants bilateral. Moderate to severe palpatory tenderness appreciated to the second and third metatarsophalangeal joint of the left foot. Pain with active and passive range of motion to the second and third digit of the left foot. No pain with calf compression bilateral lower extremity. Debridement Note Debridement Note Debridement Free Text: Excisional excisional debridement down to including subcutaneous tissue of the full-thickness ulceration of the right hallux with number 5 mm curette without incident. Predebridement measurements eschar. Postdebridement measurements are 0.4 x 0.4 x 0.1 cm. Post-Debridement Measurements and Additional Note: Post-Debridement Measurements/Treatment SANTIAGO - Nurse 1 - General Ulcer Assessment Start: 10/30/23 13:08 Freq: Status: Active Protocol: EMEKA Activity Type Activity Date Activity User E-sign Co-sign Detail Recorded Client Recorded Date Recorded By Document 10/30/23 13:08 [id number] 10/30/23 13:18 10/30/23 13:08 - Today's Visit Information Type of service Follow-up Visit (Physician/UTILITY BILL COMPLAINTS INVESTIGATOR ) Arrival Mode Ambulatory Transfer Assistance None Patient Identification Verified (Name & Yes ) Patient Requires Transmission-Based No Precautions Vital Signs Temperature (97.8 F-99.1 F) 96.1 F L Temperature Source Temporal Pulse Rate (60-100) 74 Pulse Location Monitor Respiratory Rate (12-18) 18 Respiratory rate source Observation Oxygen Delivery Method Room Air Blood Pressure (90/60-120/80) 140/84 H Blood Pressure Mean (mm Hg) 102 Source Monitor Position Sitting Blood Pressure Location Left Arm History Since Last Visit- (Skip if this is Patient's initial visit) Have you changed medications since your No last visit? Any new allergies or adverse reactions No Had a fall/change in ADL's that may No increase risk of falls Signs or symptoms of abuse and/or Yes neglect since last visit Have you been in the hospital since your No last visit? Has dressing in place as prescribed Yes Has compression in place as prescribed N/A Left Footwear Regular Shoe Right Footwear Regular Shoe Pain Scale: 0-10 Numeric Is Patient Pain Free? No Right foot -Description Crushing -Intensity 6 -Duration (hours) Acute -Pain Behavior No Change in Behavior -Alleviating Factors/Interventions Will continue to monitor -Comments will notify md HENDERSON - Nurse 1 - General Ulcer Measurement Start: 10/30/23 13:08 Freq: Status: Active Protocol: Activity Type Activity Date Activity User E-sign Co-sign Detail Recorded Client Recorded Date Recorded By Document 10/30/23 13:08 [id number] 10/30/23 13:18 10/30/23 13:08 Wound Center Nurse 1 4. R hallux -Combined with (Name of Wound-Exactly 0.7 as it is documented) -Current Size (cm) - Length 0.9 -Current Size (cm) - Width 0.1 -Total Square Cm 0.09 -Date of Last Picture (Recall this 10/30/23 field) -Photo Taken Yes -Epithelialization None Present -Tunneling No -Undermining/Tunneling No -Circular Undermining No -Exudate Amt None Present -Wound Margin Fibrotic Scar, Thickened Scar -Granulation Amt Small (1-33%) -Granulation Quality [place] -Slough/Fibrin No -Structure Exposed N/A -Texture (Megan-wound Skin Appearance) Assessed -Moisture (Megan-wound Skin Appearance) Assessed -Color (Megan-wound Skin Appearance) Assessed -Temperature (Megan-wound Skin No Abnormality Appearance) (Pt Warm) -Tenderness on Palpation (Megan-wound Yes Skin Appearance) -Ulcer Cleansing Rinsed/ Irrigated with Saline -Foul Odor after Cleansing No -Anesthetic Used 5% Lidocaine Gel SANTIAGO - Nurse 2 - General Ulcer CM Notes Start: 10/30/23 13:08 Freq: Status: Active Protocol: Activity Type Activity Date Activity User E-sign Co-sign Detail Recorded Client Recorded Date Recorded By Document 10/30/23 13:29 JF Laptop 10/30/23 13:32 10/30/23 13:29 Wound Center Nurse 2 -Time 13:29 -Correct Patient Yes -Correct Side, Site, Position Yes -Correct Procedure Yes -Procedure Performed Yes -Type of Procedure Debridement -Clinical Debridement Subcutaneous -Tissue Removed Subcutaneous -Post Debridement (cm) - Length 0.4 -Post Debridement (cm) - Width 0.4 -Post Debridement (cm) - Depth 0.1 -Total Square (Post) (cm) 0.16 -Area of Debridement (cm) - Length 0.4 -Area of Debridement (cm) - Width 0.4 -Total Square (Area) (cm) 0.16 -Tunneling No -Undermining/Tunneling No -Circular Undermining No -Wound/Ulcer Outcome Not Healed -Ulcer Cleansing Rinsed/ Irrigated with Saline -Foul Odor after Cleansing No -Bioengineered Tissue No -Bleeding Controlled with Pressure -Treatment Response Procedure Tolerated Well -Offloading Yes -Type of Offloading Surgical Shoe -Debridement - Subq, 1st 20sq cm Yes Pain Scale: 0-10 Numeric Is Patient Pain Free? Yes - Nurse 3 - General Ulcer D/C NN Start: 10/30/23 13:08 Freq: Status: Active Protocol: Activity Type Activity Date Activity User E-sign Co-sign Detail Recorded Client Recorded Date Recorded By Document 10/30/23 13:42 KW Desktop 10/30/23 13:43 KW 10/30/23 13:42 Wound Care Center Nurse 3 4. R hallux -Ulcer Cleansing Rinsed/ Irrigated with Saline -Primary Dressing Covered/Secured with Dry Gauze,Other -Other Covering coban Pain Scale: 0-10 Numeric Is Patient Pain Free? Yes WC - Visit Discharge Discharge Condition Stable Ambulatory Status Ambulatory Transportation Private Auto Medication Reconcilliation completed & No provided to patient/care provider Clinical Summary of Care Provided Yes Assessment/Plan Assessment/Plan (1) Non-pressure chronic ulcer of other part of left foot with fat layer exposed: CODE(S): L97.522 - Non-pressure chronic ulcer of other part of left foot with fat layer exposed PLAN: Patient was examined and evaluated. All findings were discussed with the patient. All questions were answered to the patient's satisfaction. Excisional excisional debridement down to including subcutaneous tissue of the full-thickness ulceration of the right hallux with number 5 mm curette without incident. Predebridement measurements eschar. Postdebridement measurements are 0.4 x 0.4 x 0.1 cm. The ulceration was dressed with Betadine paint dry sterile dressing and a single-layer Tubigrip was placed. Educated the patient to continue strict blood sugar control. She is to take her antibiotics for upper respiratory infection as written which will also help with her foot infection. Since the patient shows evidence of a reulceration we will book the patient for first metatarsophalangeal joint arthrodesis, IPJ arthroplasty open, and gastroc recession of the right lower extremity. Follow-up at the wound care center with Dr. Hernandez in 1 week. 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
[2023-11-06 13:10] VITALS: BP 127/75; PULSE 78; RESP 18; TEMP 36.1
--- NOTE | 2023-11-06 13:37 | PCM.WC.PN ---
History of Present Illness Date of Service: 11/06/23 Chief Complaint: Right and left DFU ulcers History of Wound: Mrs. Sherwood is a 53-year-old uncontrolled diabetic seen in the wound care center today with a chief complaint of full-thickness ulceration to the right big toe. As the patient presents today at the wound care center she is vomiting secondary to feeling nauseous and sick. She admits to not eating for the past 2 days. When questioned about her blood sugar levels, she says that her monitor only reads high and does not give a number. When tested in the wound care center today the patient's blood sugar was greater than 600 as are meter can only go as high as 600 mg/dL. She admits to vomiting and chills. She denies any trauma. Denies any other pedal complaints. Subjective Subjective Mrs. Sherwood is a 53-year-old diabetic female presenting to the wound care center follow-up and evaluation of full-thickness ulceration to the plantar aspect of the right hallux status post elective IPJ arthroplasty with skin graft substitute. Patient's ulcer has healed. She has completed her antibiotics by her primary care doctor and states that her breathing is better. She does have a new wound to the medial side of her hallux. No treatment thus far. She is awaiting approval for elective surgery consisting of first metatarsal phalangeal joint arthrodesis and aggressive IPJ arthroplasty to the right lower extremity after the A1c gets to 9%. Denies trauma. Denies constitutional symptoms. No other pedal complaints at this time. Objective Data Objective Data Vital Signs: Vital Signs Temp Pulse Resp BP O2 Del Method 97.0 F L 78 18 127/75 H Room Air 11/06/23 13:10 11/06/23 13:10 11/06/23 13:10 11/06/23 13:10 11/06/23 13:10 Oxygen Delivery Method Room Air Physical Exam Narrative Vascular: DP and PT pulses are palpable. CFT is brisk. Evidence of nonpitting edema appreciated to the left forefoot on the dorsal aspect. Skin temperature great is warm to warm from proximal ankle to distal digits. Neurological: Light touch intact. Protective sensation is diminished. Dermatological: No erythema appreciated to the right hallux. Evidence of new full-thickness ulceration appreciated the medial side of the right hallux measuring 1.2 x 0.8 x 0.1 cm. Evidence of hyperkeratotic periwound. No drainage, erythema or proximal streaking. No probe to bone or sign of infection. Excisional excisional debridement down to including subcutaneous tissue of the full-thickness ulceration of the right hallux with number 5 mm curette without incident. Predebridement measurements Hyperkeratotic tissue. Postdebridement measurements are 1.2 x 0.8 x 0.1 cm. Musculoskeletal: Muscle strength 5 and 5 in all quadrants bilateral. Increase passive range of motion to the IPJ of the right hallux No pain with calf compression bilateral lower extremity. Debridement Note Debridement Note Debridement Free Text: Excisional excisional debridement down to including subcutaneous tissue of the full-thickness ulceration of the right hallux with number 5 mm curette without incident. Predebridement measurements Hyperkeratotic tissue. Postdebridement measurements are 1.2 x 0.8 x 0.1 cm. Post-Debridement Measurements and Additional Note: Post-Debridement Measurements/Treatment - Nurse 1 - General Ulcer Assessment Start: 10/30/23 13:08 Freq: Status: Active Protocol: EMEKA Activity Type Activity Date Activity User E-sign Co-sign Detail Recorded Client Recorded Date Recorded By Document 10/30/23 13:08 [id number] 10/30/23 13:18 Document 11/06/23 13:10 Desktop 11/06/23 13:16 KW 10/30/23 11/06/23 13:08 13:10 - Today's Visit Information Type of service Follow-up Visit Follow-up Visit (Physician/PATIENT MANAGER (Physician/PATIENT MANAGER ) ) Arrival Mode Ambulatory Ambulatory Transfer Assistance None Patient Identification Verified (Name & Yes Yes ) Patient Requires Transmission-Based No Precautions Vital Signs Temperature (97.8 F-99.1 F) 96.1 F L 97.0 F L Temperature Source Temporal Temporal Pulse Rate (60-100) 74 78 Pulse Location Monitor Monitor Respiratory Rate (12-18) 18 18 Respiratory rate source Observation Observation Oxygen Delivery Method Room Air Room Air Blood Pressure (90/60-120/80) 140/84 H 127/75 H Blood Pressure Mean (mm Hg) 102 92 Source Monitor Monitor Position Sitting Semi-Fowlers Blood Pressure Location Left Arm Left Arm History Since Last Visit- (Skip if this is Patient's initial visit) Have you changed medications since your No No last visit? Any new allergies or adverse reactions No No Had a fall/change in ADL's that may No No increase risk of falls Signs or symptoms of abuse and/or Yes No neglect since last visit Have you been in the hospital since your No No last visit? Has dressing in place as prescribed Yes Yes Has compression in place as prescribed N/A No Has offloadiing in place as prescribed No Experienced any changes in pain level or No management Left Footwear Regular Shoe Regular Shoe Right Footwear Regular Shoe Regular Shoe Pain Scale: 0-10 Numeric Is Patient Pain Free? No Yes Right foot -Description Crushing -Intensity 6 -Duration (hours) Acute -Pain Behavior No Change in Behavior -Alleviating Factors/Interventions Will continue to monitor -Comments will notify md HENDERSON - Nurse 1 - General Ulcer Measurement Start: 10/30/23 13:08 Freq: Status: Active Protocol: Activity Type Activity Date Activity User E-sign Co-sign Detail Recorded Client Recorded Date Recorded By Document 10/30/23 13:08 [id number] 10/30/23 13:18 Document 11/06/23 13:10 KW Desktop 11/06/23 13:16 KW 10/30/23 11/06/23 13:08 13:10 Wound Center Nurse 1 4. R hallux -Combined with (Name of Wound-Exactly 0.7 as it is documented) -Current Size (cm) - Length 0.9 1.6 -Current Size (cm) - Width 0.1 1.0 -Current Size (cm) - Depth 0.1 -Total Square Cm 0.09 1.60 -Date of Last Picture (Recall this 10/30/23 field) -Photo Taken Yes -Epithelialization None Present -Tunneling No -Undermining/Tunneling No -Circular Undermining No -Exudate Amt None Present None Present -Wound Margin Fibrotic Scar, Indistinct, Non Thickened Scar -Visible -Granulation Amt Small (1-33%) -Granulation Quality [place] -Slough/Fibrin No -Structure Exposed N/A -Texture (Megan-wound Skin Appearance) Assessed Callus, Localized Edema -Moisture (Megan-wound Skin Appearance) Assessed Assessed -Color (Megan-wound Skin Appearance) Assessed Assessed -Temperature (Megan-wound Skin No Abnormality No Abnormality Appearance) (Pt Warm) (Pt Warm) -Tenderness on Palpation (Megan-wound Yes Skin Appearance) -Ulcer Cleansing Rinsed/ Rinsed/ Irrigated with Irrigated with Saline Saline -Foul Odor after Cleansing No -Anesthetic Used 5% Lidocaine 5% Lidocaine Gel Gel - Nurse 2 - General Ulcer CM Notes Start: 10/30/23 13:08 Freq: Status: Active Protocol: Activity Type Activity Date Activity User E-sign Co-sign Detail Recorded Client Recorded Date Recorded By Document 10/30/23 13:29 Laptop 10/30/23 13:32 Document 11/06/23 13:28 Laptop 11/06/23 13:31 10/30/23 11/06/23 13:29 13:28 Wound Center Nurse 2 4. R hallux -Time 13:29 13:28 -Correct Patient Yes Yes -Correct Side, Site, Position Yes Yes -Correct Procedure Yes Yes -Procedure Performed Yes Yes -Type of Procedure Debridement Debridement -Clinical Debridement Subcutaneous Subcutaneous -Tissue Removed Subcutaneous Subcutaneous -Post Debridement (cm) - Length 0.4 1.2 -Post Debridement (cm) - Width 0.4 0.8 -Post Debridement (cm) - Depth 0.1 0.1 -Total Square (Post) (cm) 0.16 0.96 -Area of Debridement (cm) - Length 0.4 1.2 -Area of Debridement (cm) - Width 0.4 0.8 -Total Square (Area) (cm) 0.16 0.96 -Tunneling No No -Undermining/Tunneling No No -Circular Undermining No No -Wound/Ulcer Outcome Not Healed Not Healed -Ulcer Cleansing Rinsed/ Rinsed/ Irrigated with Irrigated with Saline Saline -Foul Odor after Cleansing No No -Bioengineered Tissue No No -Bleeding Controlled with Pressure Pressure -Treatment Response Procedure Procedure Tolerated Well Tolerated Well -Offloading Yes No -Type of Offloading Surgical Shoe -Debridement - Subq, 1st 20sq cm Yes Yes Pain Scale: 0-10 Numeric Is Patient Pain Free? Yes Yes - Nurse 3 - General Ulcer D/C NN Start: 10/30/23 13:08 Freq: Status: Active Protocol: Activity Type Activity Date Activity User E-sign Co-sign Detail Recorded Client Recorded Date Recorded By Document 10/30/23 13:42 KW Desktop 10/30/23 13:43 KW 10/30/23 13:42 Wound Care Center Nurse 3 4. R hallux -Ulcer Cleansing Rinsed/ Irrigated with Saline -Primary Dressing Covered/Secured with Dry Gauze,Other -Other Covering coban Pain Scale: 0-10 Numeric Is Patient Pain Free? Yes WC - Visit Discharge Discharge Condition Stable Ambulatory Status Ambulatory Transportation Private Auto Medication Reconcilliation completed & No provided to patient/care provider Clinical Summary of Care Provided Yes Assessment/Plan Assessment/Plan (1) Chronic ulcer of great toe of right foot with fat layer exposed: CODE(S): L97.512 - Non-pressure chronic ulcer of other part of right foot with fat layer exposed PLAN: Patient was examined and evaluated. All findings were discussed with the patient. All questions were answered to the patient's satisfaction. Excisional excisional debridement down to including subcutaneous tissue of the full-thickness ulceration of the right hallux with number 5 mm curette without incident. Predebridement measurements Hyperkeratotic tissue. Postdebridement measurements are 1.2 x 0.8 x 0.1 cm. Ulceration was white clean and patted dry. Ulceration was dressed with Betadine paint and Band-Aid. Educated the patient to watch her walking especially with nondiabetic shoes. Educated the patient to continue to practice strict blood sugar control to bring her A1c down for elective surgery. Patient will bring in her diabetic shoes in 1 week at follow-up. She left the office pleased to visit. Follow-up at the wound care center with Dr. Hernandez in 1 week. (2) Acute painful diabetic polyneuropathy: CODE(S): E11.42 - Type 2 diabetes mellitus with diabetic polyneuropathy
[2023-11-13 13:04] VITALS: BP 138/77; PULSE 80; RESP 16; TEMP 35.9
--- NOTE | 2023-11-13 13:19 | PN.PCM_ITS ---
History of Present Illness Date of Service: 11/13/23 Chief Complaint: Right and left DFU ulcers History of Wound: Mrs. Sherwood is a 53-year-old uncontrolled diabetic seen in the wound care center today with a chief complaint of full-thickness ulceration to the right big toe. As the patient presents today at the wound care center she is vomiting secondary to feeling nauseous and sick. She admits to not eating for the past 2 days. When questioned about her blood sugar levels, she says that her monitor only reads high and does not give a number. When tested in the wound care center today the patient's blood sugar was greater than 600 as are meter can only go as high as 600 mg/dL. She admits to vomiting and chills. She denies any trauma. Denies any other pedal complaints. Subjective Subjective Mrs. Sherwood is a 53-year-old diabetic female presenting to the wound care center follow-up and evaluation of full-thickness ulceration to the plantar aspect of the right hallux status post elective IPJ arthroplasty with skin graft subs titute. Patient's ulcer has healed. Patient saw her primary care doctor who ran an A1c, and her results are 8.2%. We will move forward with right foot metatarsophalangeal joint arthrodesis and more aggressive IPJ arthroplasty to prevent any further breakdown of the patient's wound which is now healed. Denies trauma. Denies constitutional symptoms. Other pedal complaints at this time. Objective Data Objective Data Vital Signs: Vital Signs Temp Pulse Resp BP O2 Del Method 96.7 F L 80 16 138/77 H Room Air 11/13/23 13:04 11/13/23 13:04 11/13/23 13:04 11/13/23 13:04 11/06/23 13:10 Oxygen Delivery Method Room Air Physical Exam Narrative Vascular: DP and PT pulses are palpable. CFT is brisk. Evidence of nonpitting edema appreciated to the left forefoot on the dorsal aspect. Skin temperature great is warm to warm from proximal ankle to distal digits. Neurological: Light touch intact. Protective sensation is diminished. Dermatological: No erythema appreciated to the right hallux. Evidence of new partial-thickness ulceration appreciated the medial side of the right hallux measuring 0.1 x 0.1 x 0.1 cm. Evidence of hyperkeratotic periwound. No drainage, erythema or proximal streaking. No probe to bone or sign of infection. Excisional debridement down to including dermis tissue of the partial-thickness ulceration of the right hallux with number 5 mm curette without incident. Predebridement measurements Hyperkeratotic tissue. Postdebridement measurements are 0.1 x 0.1 x 0.1 cm. Musculoskeletal: Muscle strength 5 and 5 in all quadrants bilateral. Increase passive range of motion to the IPJ of the right hallux No pain with calf compression bilateral lower extremity. Debridement Note Debridement Note Debridement Free Text: Excisional debridement down to including dermis tissue of the partial-thickness ulceration of the right hallux with number 5 mm curette without incident. Predebridement measurements Hyperkeratotic tissue. Postdebridement measurements are 0.1 x 0.1 x 0.1 cm. Post-Debridement Measurements and Additional Note: Post-Debridement Measurements/Treatment - Nurse 1 - General Ulcer Assessment Start: 10/30/23 13:08 Freq: Status: Active Protocol: EMEKA Activity Type Activity Date Activity User E-sign Co-sign Detail Recorded Client Recorded Date Recorded By Document 10/30/23 13:08 [id number] 10/30/23 13:18 Document 11/06/23 13:10 KW Desktop 11/06/23 13:16 KW Document 11/13/23 13:04 KW Desktop 11/13/23 13:08 KW 10/30/23 11/06/23 11/13/23 13:08 13:10 13:04 - Today's Visit Information Type of service Follow-up Visit Follow-up Visit Follow-up Visit (Physician/GEAR TECHNICIAN (Physician/GEAR TECHNICIAN (Physician/GEAR TECHNICIAN ) ) ) Arrival Mode Ambulatory Ambulatory Ambulatory Transfer Assistance None Patient Identification Verified (Name & Yes Yes Yes ) Patient Requires Transmission-Based No Precautions Vital Signs Temperature (97.8 F-99.1 F) 96.1 F L 97.0 F L 96.7 F L Temperature Source Temporal Temporal Temporal Pulse Rate (60-100) 74 78 80 Pulse Location Monitor Monitor Monitor Respiratory Rate (12-18) 18 18 16 Respiratory rate source Observation Observation Observation Oxygen Delivery Method Room Air Room Air Blood Pressure (90/60-120/80) 140/84 H 127/75 H 138/77 H Blood Pressure Mean (mm Hg) 102 92 97 Source Monitor Monitor Monitor Position Sitting Semi-Fowlers Semi-Fowlers Blood Pressure Location Left Arm Left Arm Left Arm History Since Last Visit- (Skip if this is Patient's initial visit) Have you changed medications since your No No No last visit? Any new allergies or adverse reactions No No No Had a fall/change in ADL's that may No No No increase risk of falls Signs or symptoms of abuse and/or Yes No No neglect since last visit Have you been in the hospital since your No No No last visit? Has dressing in place as prescribed Yes Yes Yes Has compression in place as prescribed N/A No N/A Has offloadiing in place as prescribed No N/A Experienced any changes in pain level or No No management Left Footwear Regular Shoe Regular Shoe Regular Shoe Right Footwear Regular Shoe Regular Shoe Regular Shoe Pain Scale: 0-10 Numeric Is Patient Pain Free? No Yes Yes Right foot -Description Crushing -Intensity 6 -Duration (hours) Acute -Pain Behavior No Change in Behavior -Alleviating Factors/Interventions Will continue to monitor -Comments will notify md HENDERSON - Nurse 1 - General Ulcer Measurement Start: 10/30/23 13:08 Freq: Status: Active Protocol: Activity Type Activity Date Activity User E-sign Co-sign Detail Recorded Client Recorded Date Recorded By Document 10/30/23 13:08 [id number] 10/30/23 13:18 Document 11/06/23 13:10 KW Desktop 11/06/23 13:16 KW Document 11/13/23 13:04 KW Desktop 11/13/23 13:08 KW 10/30/23 11/06/23 11/13/23 13:08 13:10 13:04 Wound Center Nurse 1 4. R hallux -Combined with (Name of Wound-Exactly 0.7 as it is documented) -Current Size (cm) - Length 0.9 1.6 1.4 -Current Size (cm) - Width 0.1 1.0 1 -Current Size (cm) - Depth 0.1 0.1 -Total Square Cm 0.09 1.60 1.4 -Date of Last Picture (Recall this 10/30/23 11/13/23 field) -Photo Taken Yes Yes -Epithelialization None Present -Tunneling No -Undermining/Tunneling No -Circular Undermining No -Exudate Amt None Present None Present Small -Exudate Type Serosanguineous -Wound Margin Fibrotic Scar, Indistinct, Non Distinct, Thickened Scar -Visible Outline Attached -Granulation Amt Small (1-33%) -Granulation Quality [place] -Slough/Fibrin No -Structure Exposed N/A -Texture (Megan-wound Skin Appearance) Assessed Callus, Assessed Localized Edema -Moisture (Megan-wound Skin Appearance) Assessed Assessed Assessed -Color (Megan-wound Skin Appearance) Assessed Assessed Assessed -Temperature (Megan-wound Skin No Abnormality No Abnormality No Abnormality Appearance) (Pt Warm) (Pt Warm) (Pt Warm) -Tenderness on Palpation (Megan-wound Yes Skin Appearance) -Ulcer Cleansing Rinsed/ Rinsed/ Rinsed/ Irrigated with Irrigated with Irrigated with Saline Saline Saline -Foul Odor after Cleansing No -Anesthetic Used 5% Lidocaine 5% Lidocaine 5% Lidocaine Gel Gel Gel -Wound Comment(s) scabbed WC - Nurse 2 - General Ulcer CM Notes Start: 10/30/23 13:08 Freq: Status: Active Protocol: Activity Type Activity Date Activity User E-sign Co-sign Detail Recorded Client Recorded Date Recorded By Document 10/30/23 13:29 [employer] Laptop 10/30/23 13:32 [employer] Document 11/06/23 13:28 [employer] Laptop 11/06/23 13:31 [employer] Document 11/13/23 13:12 [employer] Laptop 11/13/23 13:15 [employer] 10/30/23 11/06/23 11/13/23 13:29 13:28 13:12 Wound Center Nurse 2 4. R hallux -Time 13:29 13:28 13:14 -Correct Patient Yes Yes Yes -Correct Side, Site, Position Yes Yes Yes -Correct Procedure Yes Yes Yes -Procedure Performed Yes Yes Yes -Type of Procedure Debridement Debridement Debridement -Clinical Debridement Subcutaneous Subcutaneous Epidermis / Dermis -Tissue Removed Subcutaneous Subcutaneous Epidermis, Dermis -Post Debridement (cm) - Length 0.4 1.2 0.1 -Post Debridement (cm) - Width 0.4 0.8 0.1 -Post Debridement (cm) - Depth 0.1 0.1 0.1 -Total Square (Post) (cm) 0.16 0.96 0.01 -Area of Debridement (cm) - Length 0.4 1.2 0.1 -Area of Debridement (cm) - Width 0.4 0.8 0.1 -Total Square (Area) (cm) 0.16 0.96 0.01 -Tunneling No No No -Undermining/Tunneling No No No -Circular Undermining No No No -Wound/Ulcer Outcome Not Healed Not Healed Not Healed -Ulcer Cleansing Rinsed/ Rinsed/ Rinsed/ Irrigated with Irrigated with Irrigated with Saline Saline Saline -Foul Odor after Cleansing No No No -Bioengineered Tissue No No No -Bleeding Controlled with Pressure Pressure Pressure,Silver Nitrate -Treatment Response Procedure Procedure Procedure Tolerated Well Tolerated Well Tolerated Well -Offloading Yes No No -Type of Offloading Surgical Shoe -Debridement - Open, 1st 20sq cm Yes -Debridement - Subq, 1st 20sq cm Yes Yes No Pain Scale: 0-10 Numeric Is Patient Pain Free? Yes Yes Yes - Nurse 3 - General Ulcer D/C NN Start: 10/30/23 13:08 Freq: Status: Active Protocol: Activity Type Activity Date Activity User E-sign Co-sign Detail Recorded Client Recorded Date Recorded By Document 10/30/23 13:42 KW Desktop 10/30/23 13:43 KW Document 11/06/23 13:39 KW Desktop 11/06/23 13:39 KW Document 11/13/23 13:18 KW Desktop 11/13/23 13:18 KW 10/30/23 11/06/23 11/13/23 13:42 13:39 13:18 Wound Care Center Nurse 3 4. R hallux -Ulcer Cleansing Rinsed/ Irrigated with Saline -Primary Dressing Covered/Secured with Dry Gauze,Other Other Other -Other Covering coban bandaid bandaide Pain Scale: 0-10 Numeric Is Patient Pain Free? Yes Yes Yes - Visit Discharge Discharge Condition Stable Stable Stable Ambulatory Status Ambulatory Ambulatory Ambulatory Transportation Private Auto Private Auto Private Auto Medication Reconcilliation completed & No No No provided to patient/care provider Clinical Summary of Care Provided Yes Yes Yes Assessment/Plan Assessment/Plan (1) Non-pressure chronic ulcer of other part of left foot with fat layer exposed: CODE(S): L97.522 - Non-pressure chronic ulcer of other part of left foot with fat layer exposed PLAN: Patient was examined and evaluated. All findings were discussed with the patient. All questions were answered to the patient's satisfaction. Excisional debridement down to including dermis tissue of the partial-thickness ulceration of the right hallux with number 5 mm curette without incident. Predebridement measurements Hyperkeratotic tissue. Postdebridement measurements are 0.1 x 0.1 x 0.1 cm. Right hallux was dressed with Betadine paint and sterile Band-Aid. Patient will follow-up in private office with Dr. Hernandez for surgical consultation. Follow-up at the wound care center with Dr. Hernandez in 1 week. (2) Acute painful diabetic polyneuropathy: CODE(S): E11.42 - Type 2 diabetes mellitus with diabetic polyneuropathy (3) Primary osteoarthritis: CODE(S): M19.91 - Primary osteoarthritis, unspecified site
[2023-11-20 13:00] VITALS: BP 147/95; PULSE 82; RESP 16; TEMP 35.9
--- NOTE | 2023-11-20 13:15 | PN.PCM_ITS ---
History of Present Illness Date of Service: 11/20/23 Chief Complaint: Right and left DFU ulcers History of Wound: Mrs. Sherwood is a 53-year-old uncontrolled diabetic seen in the wound care center today with a chief complaint of full-thickness ulceration to the right big toe. As the patient presents today at the wound care center she is vomiting secondary to feeling nauseous and sick. She admits to not eating for the past 2 days. When questioned about her blood sugar levels, she says that her monitor only reads high and does not give a number. When tested in the wound care center today the patient's blood sugar was greater than 600 as are meter can only go as high as 600 mg/dL. She admits to vomiting and chills. She denies any trauma. Denies any other pedal complaints. Subjective Subjective Mrs. Sherwood is a 53-year-old diabetic female presenting to the wound care center follow-up and evaluation of full-thickness ulceration to the plantar aspect of the right hallux status post elective IPJ arthroplasty with skin graft subs titute. Patient wound has reappeared. She will be moving forward with elective surgery to the right foot consisting of first metatarsophalangeal joint arthroplasty and more aggressive IPJ arthroplasty. Patient understands all risk and benefits. She will follow-up next Saturday here for evaluation prior to surgery Saturday next week. She denies trauma. Denies constitutional symptoms. Other pedal complaints at this time. Objective Data Objective Data Vital Signs: Vital Signs Temp Pulse Resp BP O2 Del Method 96.7 F L 82 16 147/95 H Room Air 11/20/23 13:00 11/20/23 13:00 11/20/23 13:00 11/20/23 13:11/20/23 13:00 Oxygen Delivery Method Room Air Physical Exam Narrative Vascular: DP and PT pulses are palpable. CFT is brisk. Evidence of nonpitting edema appreciated to the left forefoot on the dorsal aspect. Skin temperature great is warm to warm from proximal ankle to distal digits. Neurological: Light touch intact. Protective sensation is diminished. Dermatological: No erythema appreciated to the right hallux. Evidence of new partial-thickness ulceration appreciated the medial side of the right hallux measuring 0.5 x 0.4 x 0.1 cm. Evidence of hyperkeratotic periwound. No drainage, erythema or proximal streaking. No probe to bone or sign of infection. Excisional debridement down to including dermis tissue of the partial-thickness ulceration of the right hallux with number 5 mm curette without incident. Predebridement measurements Hyperkeratotic tissue. Postdebridement measurements are 0.5 x 0.4 x 0.1 cm. Musculoskeletal: Muscle strength 5 and 5 in all quadrants bilateral. Increase passive range of motion to the IPJ of the right hallux No pain with calf compression bilateral lower extremity. Debridement Note Debridement Note Post-Debridement Measurements and Additional Note: Post-Debridement Measurements/Treatment - Nurse 1 - General Ulcer Assessment Start: 10/30/23 13:08 Freq: Status: Active Protocol: .[employer] Activity Type Activity Date Activity User E-sign Co-sign Detail Recorded Client Recorded Date Recorded By Document 10/30/23 13:08 [id number] 10/30/23 13:18 GM Document 11/06/23 13:10 KW Desktop 11/06/23 13:16 KW Document 11/13/23 13:04 KW Desktop 11/13/23 13:08 KW Document 11/20/23 13:00 BMF Desktop 11/20/23 13:03 BMF 10/30/23 11/06/23 11/13/23 13:08 13:10 13:04 - Today's Visit Information Type of service Follow-up Visit Follow-up Visit Follow-up Visit (Physician/SENIOR BIOINFORMATICS SCIENTIST (Physician/SENIOR BIOINFORMATICS SCIENTIST (Physician/SENIOR BIOINFORMATICS SCIENTIST ) ) ) Arrival Mode Ambulatory Ambulatory Ambulatory Transfer Assistance None Patient Identification Verified (Name & Yes Yes Yes ) Patient Requires Transmission-Based No Precautions Vital Signs Temperature (97.8 F-99.1 F) 96.1 F L 97.0 F L 96.7 F L Temperature Source Temporal Temporal Temporal Pulse Rate (60-100) 74 78 80 Pulse Location Monitor Monitor Monitor Respiratory Rate (12-18) 18 18 16 Respiratory rate source Observation Observation Observation Oxygen Delivery Method Room Air Room Air Blood Pressure (90/60-120/80) 140/84 H 127/75 H 138/77 H Blood Pressure Mean (mm Hg) 102 92 97 Source Monitor Monitor Monitor Position Sitting Semi-Fowlers Semi-Fowlers Blood Pressure Location Left Arm Left Arm Left Arm History Since Last Visit- (Skip if this is Patient's initial visit) Have you changed medications since your No No No last visit? Any new allergies or adverse reactions No No No Had a fall/change in ADL's that may No No No increase risk of falls Signs or symptoms of abuse and/or Yes No No neglect since last visit Have you been in the hospital since your No No No last visit? Has dressing in place as prescribed Yes Yes Yes Has compression in place as prescribed N/A No N/A Has offloadiing in place as prescribed No N/A Experienced any changes in pain level or No No management Left Footwear Regular Shoe Regular Shoe Regular Shoe Right Footwear Regular Shoe Regular Shoe Regular Shoe Pain Scale: 0-10 Numeric Is Patient Pain Free? No Yes Yes Right foot -Description Crushing -Intensity 6 -Duration (hours) Acute -Pain Behavior No Change in Behavior -Alleviating Factors/Interventions Will continue to monitor -Comments will notify 11/20/23 13:00 WC - Today's Visit Information Type of service Follow-up Visit (Physician/SENIOR BIOINFORMATICS SCIENTIST ) Arrival Mode Ambulatory Transfer Assistance None Patient Identification Verified (Name & Yes ) Patient Requires Transmission-Based No Precautions Vital Signs Temperature (97.8 F-99.1 F) 96.7 F L Temperature Source Temporal Pulse Rate (60-100) 82 Pulse Location Monitor Respiratory Rate (12-18) 16 Respiratory rate source Observation Oxygen Delivery Method Room Air Blood Pressure (90/60-120/80) 147/95 H Blood Pressure Mean (mm Hg) 112 Source Monitor Position Sitting Blood Pressure Location Right Arm History Since Last Visit- (Skip if this is Patient's initial visit) Have you changed medications since your No last visit? Any new allergies or adverse reactions No Had a fall/change in ADL's that may No increase risk of falls Signs or symptoms of abuse and/or No neglect since last visit Have you been in the hospital since your No last visit? Has dressing in place as prescribed Yes Has compression in place as prescribed N/A Has offloadiing in place as prescribed N/A Experienced any changes in pain level or No management Left Footwear Diabetic Shoe Right Footwear Diabetic Shoe Pain Scale: 0-10 Numeric Is Patient Pain Free? Yes Right foot -Description -Intensity -Duration (hours) -Pain Behavior -Alleviating Factors/Interventions -Comments - Nurse 1 - General Ulcer Measurement Start: 10/30/23 13:08 Freq: Status: Active Protocol: Activity Type Activity Date Activity User E-sign Co-sign Detail Recorded Client Recorded Date Recorded By Document 10/30/23 13:08 [id number] 10/30/23 13:18 GM Document 11/06/23 13:10 KW Desktop 11/06/23 13:16 KW Document 11/13/23 13:04 KW Desktop 11/13/23 13:08 KW Document 11/20/23 13:00 BMF Desktop 11/20/23 13:03 BMF 10/30/23 11/06/23 11/13/23 13:08 13:10 13:04 Wound Center Nurse 1 4. R hallux -Combined with other wound -Combined with (Name of Wound-Exactly 0.7 as it is documented) -Current Size (cm) - Length 0.9 1.6 1.4 -Current Size (cm) - Width 0.1 1.0 1 -Current Size (cm) - Depth 0.1 0.1 -Total Square Cm 0.09 1.60 1.4 -Date of Last Picture (Recall this 10/30/23 11/13/23 field) -Photo Taken Yes Yes -Epithelialization None Present -Tunneling No -Undermining/Tunneling No -Circular Undermining No -Exudate Amt None Present None Present Small -Exudate Type Serosanguineous -Wound Margin Fibrotic Scar, Indistinct, Non Distinct, Thickened Scar -Visible Outline Attached -Granulation Amt Small (1-33%) -Granulation Quality [place] -Slough/Fibrin No -Necrosis Amt -Necrotic Tissue Type -Structure Exposed N/A -Texture (Megan-wound Skin Appearance) Assessed Callus, Assessed Localized Edema -Moisture (Megan-wound Skin Appearance) Assessed Assessed Assessed -Color (Megan-wound Skin Appearance) Assessed Assessed Assessed -Temperature (Megan-wound Skin No Abnormality No Abnormality No Abnormality Appearance) (Pt Warm) (Pt Warm) (Pt Warm) -Tenderness on Palpation (Megan-wound Yes Skin Appearance) -Ulcer Cleansing Rinsed/ Rinsed/ Rinsed/ Irrigated with Irrigated with Irrigated with Saline Saline Saline -Foul Odor after Cleansing No -Anesthetic Used 5% Lidocaine 5% Lidocaine 5% Lidocaine Gel Gel Gel -Wound Comment(s) scabbed 11/20/23 13:00 Wound Center Nurse 1 4. R hallux -Combined with other wound No -Combined with (Name of Wound-Exactly as it is documented) -Current Size (cm) - Length 1.5 -Current Size (cm) - Width 1.5 -Current Size (cm) - Depth 0.1 -Total Square Cm 2.25 -Date of Last Picture (Recall this 11/20/23 field) -Photo Taken Yes -Epithelialization Medium 34-66% -Tunneling No -Undermining/Tunneling No -Circular Undermining No -Exudate Amt None Present -Exudate Type Serosanguineous -Wound Margin Flat & Intact -Granulation Amt None Present (0 %) -Granulation Quality -Slough/Fibrin Yes -Necrosis Amt Large (67-100%) -Necrotic Tissue Type Eschar -Structure Exposed -Texture (Megan-wound Skin Appearance) Assessed, Scarring -Moisture (Megan-wound Skin Appearance) Assessed -Color (Megan-wound Skin Appearance) Assessed -Temperature (Megan-wound Skin No Abnormality Appearance) (Pt Warm) -Tenderness on Palpation (Megan-wound No Skin Appearance) -Ulcer Cleansing Rinsed/ Irrigated with Saline -Foul Odor after Cleansing No -Anesthetic Used 5% Lidocaine Gel -Wound Comment(s) WC - Nurse 2 - General Ulcer CM Notes Start: 10/30/23 13:08 Freq: Status: Active Protocol: Activity Type Activity Date Activity User E-sign Co-sign Detail Recorded Client Recorded Date Recorded By Document 10/30/23 13:29 Muse Laptop 10/30/23 13:32 Document 11/06/23 13:28 Muse Laptop 11/06/23 13:31 Document 11/13/23 13:12 Muse Laptop 11/13/23 13:15 Document 11/20/23 13:08 Muse Laptop 11/20/23 13:11 10/30/23 11/06/23 11/13/23 13:29 13:28 13:12 Wound Center Nurse 2 4. R hallux -Time 13:29 13:28 13:14 -Correct Patient Yes Yes Yes -Correct Side, Site, Position Yes Yes Yes -Correct Procedure Yes Yes Yes -Procedure Performed Yes Yes Yes -Type of Procedure Debridement Debridement Debridement -Clinical Debridement Subcutaneous Subcutaneous Epidermis / Dermis -Tissue Removed Subcutaneous Subcutaneous Epidermis, Dermis -Post Debridement (cm) - Length 0.4 1.2 0.1 -Post Debridement (cm) - Width 0.4 0.8 0.1 -Post Debridement (cm) - Depth 0.1 0.1 0.1 -Total Square (Post) (cm) 0.16 0.96 0.01 -Area of Debridement (cm) - Length 0.4 1.2 0.1 -Area of Debridement (cm) - Width 0.4 0.8 0.1 -Total Square (Area) (cm) 0.16 0.96 0.01 -Tunneling No No No -Undermining/Tunneling No No No -Circular Undermining No No No -Wound/Ulcer Outcome Not Healed Not Healed Not Healed -Ulcer Cleansing Rinsed/ Rinsed/ Rinsed/ Irrigated with Irrigated with Irrigated with Saline Saline Saline -Foul Odor after Cleansing No No No -Bioengineered Tissue No No No -Bleeding Controlled with Pressure Pressure Pressure,Silver Nitrate -Treatment Response Procedure Procedure Procedure Tolerated Well Tolerated Well Tolerated Well -Offloading Yes No No -Type of Offloading Surgical Shoe -Debridement - Open, 1st 20sq cm Yes -Debridement - Subq, 1st 20sq cm Yes Yes No Pain Scale: 0-10 Numeric Is Patient Pain Free? Yes Yes Yes 11/20/23 13:08 Wound Center Nurse 2 4. R hallux -Time 13:09 -Correct Patient Yes -Correct Side, Site, Position Yes -Correct Procedure Yes -Procedure Performed Yes -Type of Procedure Debridement -Clinical Debridement Subcutaneous -Tissue Removed Subcutaneous -Post Debridement (cm) - Length 0.5 -Post Debridement (cm) - Width 0.4 -Post Debridement (cm) - Depth 0.1 -Total Square (Post) (cm) 0.20 -Area of Debridement (cm) - Length 0.5 -Area of Debridement (cm) - Width 0.4 -Total Square (Area) (cm) 0.20 -Tunneling No -Undermining/Tunneling No -Circular Undermining No -Wound/Ulcer Outcome Not Healed -Ulcer Cleansing Rinsed/ Irrigated with Saline -Foul Odor after Cleansing No -Bioengineered Tissue No -Bleeding Controlled with Pressure -Treatment Response Procedure Tolerated Well -Offloading No -Type of Offloading -Debridement - Open, 1st 20sq cm -Debridement - Subq, 1st 20sq cm Yes Pain Scale: 0-10 Numeric Is Patient Pain Free? Yes WC - Nurse 3 - General Ulcer D/C NN Start: 10/30/23 13:08 Freq: Status: Active Protocol: Activity Type Activity Date Activity User E-sign Co-sign Detail Recorded Client Recorded Date Recorded By Document 10/30/23 13:42 KW Desktop 10/30/23 13:43 KW Document 11/06/23 13:39 KW Desktop 11/06/23 13:39 KW Document 11/13/23 13:18 KW Desktop 11/13/23 13:18 KW 10/30/23 11/06/23 11/13/23 13:42 13:39 13:18 Wound Care Center Nurse 3 4. R hallux -Ulcer Cleansing Rinsed/ Irrigated with Saline -Primary Dressing Covered/Secured with Dry Gauze,Other Other Other -Other Covering coban bandaid bandaide Pain Scale: 0-10 Numeric Is Patient Pain Free? Yes Yes Yes WC - Visit Discharge Discharge Condition Stable Stable Stable Ambulatory Status Ambulatory Ambulatory Ambulatory Transportation Private Auto Private Auto Private Auto Medication Reconcilliation completed & No No No provided to patient/care provider Clinical Summary of Care Provided Yes Yes Yes Assessment/Plan Assessment/Plan (1) Chronic ulcer of great toe of right foot with fat layer exposed: CODE(S): L97.512 - Non-pressure chronic ulcer of other part of right foot with fat layer exposed PLAN: Patient was examined and evaluated. All findings were discussed with the patient. All questions were answered to the patient's satisfaction. Excisional debridement down to including dermis tissue of the partial-thickness ulceration of the right hallux with number 5 mm curette without incident. Predebridement measurements Hyperkeratotic tissue. Postdebridement measurements are 0.5 x 0.4 x 0.1 cm. Partial-thickness wound was dressed with Betadine paint dry sterile dressing. Patient will continue home dressing changes as instructed. Patient will follow-up next Saturday for evaluation prior to surgery Saturday next week. She understands all risk and benefits and like to move forward with elective foot ankle surgery. Follow-up at the wound care center with Dr. Hernandez in 1 week.
[2023-11-27 13:02] VITALS: BP 156/93; PULSE 76; RESP 18; TEMP 36
--- NOTE | 2023-11-27 13:25 | PCM.WC.PN ---
History of Present Illness Date of Service: 11/27/23 Chief Complaint: Right and left DFU ulcers History of Wound: Mrs. Sherwood is a 53-year-old uncontrolled diabetic seen in the wound care center today with a chief complaint of full-thickness ulceration to the right big toe. As the patient presents today at the wound care center she is vomiting secondary to feeling nauseous and sick. She admits to not eating for the past 2 days. When questioned about her blood sugar levels, she says that her monitor only reads high and does not give a number. When tested in the wound care center today the patient's blood sugar was greater than 600 as are meter can only go as high as 600 mg/dL. She admits to vomiting and chills. She denies any trauma. Denies any other pedal complaints. Subjective Subjective Mrs. Sherwood is a 53-year-old diabetic female presenting to the wound care center follow-up and evaluation of full-thickness ulceration to the plantar aspect of the right hallux status post elective IPJ arthroplasty with skin graft substitute. Patient wound has reappeared. She will be moving forward with elective surgery to the right foot consisting of first metatarsophalangeal joint arthroplasty and more aggressive IPJ arthroplasty this Saturday. Patient understands all risk and benefits. She denies trauma. Denies constitutional symptoms. Other pedal complaints at this time. Objective Data Objective Data Vital Signs: Vital Signs Temp Pulse Resp BP O2 Del Method 96.8 F L 76 18 156/93 H Room Air 11/27/23 13:02 11/27/23 13:02 11/27/23 13:02 11/27/23 13:02 11/27/23 13:02 Oxygen Delivery Method Room Air Physical Exam Narrative Vascular: DP and PT pulses are palpable. CFT is brisk. Evidence of nonpitting edema appreciated to the left forefoot on the dorsal aspect. Skin temperature great is warm to warm from proximal ankle to distal digits. Neurological: Light touch intact. Protective sensation is diminished. Dermatological: No erythema appreciated to the right hallux. Evidence of new partial-thickness ulceration appreciated the medial side of the right hallux measuring 0.5 x 0.3 x 0.1 cm. Evidence of hyperkeratotic periwound. No drainage, erythema or proximal streaking. No probe to bone or sign of infection. Excisional debridement down to including dermis tissue of the partial-thickness ulceration of the right hallux with number 5 mm curette without incident. Predebridement measurements Hyperkeratotic tissue. Postdebridement measurements are 0.5 x 0.3 x 0.1 cm. Musculoskeletal: Muscle strength 5 and 5 in all quadrants bilateral. Increase passive range of motion to the IPJ of the right hallux No pain with calf compression bilateral lower extremity. Debridement Note Debridement Note Post-Debridement Measurements and Additional Note: Post-Debridement Measurements/Treatment - Nurse 1 - General Ulcer Assessment Start: 10/30/23 13:08 Freq: Status: Active Protocol: .[employer] Activity Type Activity Date Activity User E-sign Co-sign Detail Recorded Client Recorded Date Recorded By Document 10/30/23 13:08 [id number] 10/30/23 13:18 GM Document 11/06/23 13:10 KW Desktop 11/06/23 13:16 KW Document 11/13/23 13:04 KW Desktop 11/13/23 13:08 KW Document 11/20/23 13:00 BMF Desktop 11/20/23 13:03 BMF Document 11/27/23 13:02 KW Desktop 11/27/23 13:06 KW 10/30/23 11/06/23 11/13/23 13:08 13:10 13:04 - Today's Visit Information Type of service Follow-up Visit Follow-up Visit Follow-up Visit (Physician/ELIGIBILITY MANAGER (Physician/ELIGIBILITY MANAGER (Physician/ELIGIBILITY MANAGER ) ) ) Arrival Mode Ambulatory Ambulatory Ambulatory Transfer Assistance None Patient Identification Verified (Name & Yes Yes Yes ) Patient Requires Transmission-Based No Precautions Vital Signs Temperature (97.8 F-99.1 F) 96.1 F L 97.0 F L 96.7 F L Temperature Source Temporal Temporal Temporal Pulse Rate (60-100) 74 78 80 Pulse Location Monitor Monitor Monitor Respiratory Rate (12-18) 18 18 16 Respiratory rate source Observation Observation Observation Oxygen Delivery Method Room Air Room Air Blood Pressure (90/60-120/80) 140/84 H 127/75 H 138/77 H Blood Pressure Mean (mm Hg) 102 92 97 Source Monitor Monitor Monitor Position Sitting Semi-Fowlers Semi-Fowlers Blood Pressure Location Left Arm Left Arm Left Arm History Since Last Visit- (Skip if this is Patient's initial visit) Have you changed medications since your No No No last visit? Any new allergies or adverse reactions No No No Had a fall/change in ADL's that may No No No increase risk of falls Signs or symptoms of abuse and/or Yes No No neglect since last visit Have you been in the hospital since your No No No last visit? Has dressing in place as prescribed Yes Yes Yes Has compression in place as prescribed N/A No N/A Has offloadiing in place as prescribed No N/A Experienced any changes in pain level or No No management Left Footwear Regular Shoe Regular Shoe Regular Shoe Right Footwear Regular Shoe Regular Shoe Regular Shoe Pain Scale: 0-10 Numeric Is Patient Pain Free? No Yes Yes Right foot -Description Crushing -Intensity 6 -Duration (hours) Acute -Pain Behavior No Change in Behavior -Alleviating Factors/Interventions Will continue to monitor -Comments will notify 11/20/23 11/27/23 13:00 13:02 WC - Today's Visit Information Type of service Follow-up Visit Follow-up Visit (Physician/ELIGIBILITY MANAGER (Physician/ELIGIBILITY MANAGER ) ) Arrival Mode Ambulatory Ambulatory Transfer Assistance None Patient Identification Verified (Name & Yes Yes ) Patient Requires Transmission-Based No Precautions Vital Signs Temperature (97.8 F-99.1 F) 96.7 F L 96.8 F L Temperature Source Temporal Temporal Pulse Rate (60-100) 82 76 Pulse Location Monitor Monitor Respiratory Rate (12-18) 16 18 Respiratory rate source Observation Observation Oxygen Delivery Method Room Air Room Air Blood Pressure (90/60-120/80) 147/95 H 156/93 H Blood Pressure Mean (mm Hg) 112 114 Source Monitor Monitor Position Sitting Semi-Fowlers Blood Pressure Location Right Arm Right Arm History Since Last Visit- (Skip if this is Patient's initial visit) Have you changed medications since your No No last visit? Any new allergies or adverse reactions No No Had a fall/change in ADL's that may No No increase risk of falls Signs or symptoms of abuse and/or No No neglect since last visit Have you been in the hospital since your No No last visit? Has dressing in place as prescribed Yes Yes Has compression in place as prescribed N/A N/A Has offloadiing in place as prescribed N/A N/A Experienced any changes in pain level or No No management Left Footwear Diabetic Shoe Regular Shoe Right Footwear Diabetic Shoe Regular Shoe Pain Scale: 0-10 Numeric Is Patient Pain Free? Yes Yes Right foot -Description -Intensity -Duration (hours) -Pain Behavior -Alleviating Factors/Interventions -Comments WC - Nurse 1 - General Ulcer Measurement Start: 10/30/23 13:08 Freq: Status: Active Protocol: Activity Type Activity Date Activity User E-sign Co-sign Detail Recorded Client Recorded Date Recorded By Document 10/30/23 13:08 GM [id number] 10/30/23 13:18 GM Document 11/06/23 13:10 KW Desktop 11/06/23 13:16 KW Document 11/13/23 13:04 KW Desktop 11/13/23 13:08 KW Document 11/20/23 13:00 BMF Desktop 11/20/23 13:03 BMF Document 11/27/23 13:02 KW Desktop 11/27/23 13:06 KW 10/30/23 11/06/23 11/13/23 13:08 13:10 13:04 Wound Center Nurse 1 4. R hallux -Combined with other wound -Combined with (Name of Wound-Exactly 0.7 as it is documented) -Current Size (cm) - Length 0.9 1.6 1.4 -Current Size (cm) - Width 0.1 1.0 1 -Current Size (cm) - Depth 0.1 0.1 -Total Square Cm 0.09 1.60 1.4 -Date of Last Picture (Recall this 10/30/23 11/13/23 field) -Photo Taken Yes Yes -Epithelialization None Present -Tunneling No -Undermining/Tunneling No -Circular Undermining No -Exudate Amt None Present None Present Small -Exudate Type Serosanguineous -Wound Margin Fibrotic Scar, Indistinct, Non Distinct, Thickened Scar -Visible Outline Attached -Granulation Amt Small (1-33%) -Granulation Quality [place] -Slough/Fibrin No -Necrosis Amt -Necrotic Tissue Type -Structure Exposed N/A -Texture (Megan-wound Skin Appearance) Assessed Callus, Assessed Localized Edema -Moisture (Megan-wound Skin Appearance) Assessed Assessed Assessed -Color (Megan-wound Skin Appearance) Assessed Assessed Assessed -Temperature (Megan-wound Skin No Abnormality No Abnormality No Abnormality Appearance) (Pt Warm) (Pt Warm) (Pt Warm) -Tenderness on Palpation (Megan-wound Yes Skin Appearance) -Ulcer Cleansing Rinsed/ Rinsed/ Rinsed/ Irrigated with Irrigated with Irrigated with Saline Saline Saline -Foul Odor after Cleansing No -Anesthetic Used 5% Lidocaine 5% Lidocaine 5% Lidocaine Gel Gel Gel -Wound Comment(s) scabbed 11/20/23 11/27/23 13:00 13:02 Wound Center Nurse 1 4. R hallux -Combined with other wound No -Combined with (Name of Wound-Exactly as it is documented) -Current Size (cm) - Length 1.5 1 -Current Size (cm) - Width 1.5 1.1 -Current Size (cm) - Depth 0.1 0.1 -Total Square Cm 2.25 1.1 -Date of Last Picture (Recall this 11/20/23 11/27/23 field) -Photo Taken Yes Yes -Epithelialization Medium 34-66% -Tunneling No -Undermining/Tunneling No -Circular Undermining No -Exudate Amt None Present Small -Exudate Type Serosanguineous Serosanguineous -Wound Margin Flat & Intact Distinct, Outline Attached -Granulation Amt None Present (0 %) -Granulation Quality -Slough/Fibrin Yes -Necrosis Amt Large (67-100%) -Necrotic Tissue Type Eschar -Structure Exposed -Texture (Megan-wound Skin Appearance) Assessed, Assessed Scarring -Moisture (Megan-wound Skin Appearance) Assessed Assessed -Color (Megan-wound Skin Appearance) Assessed Assessed -Temperature (Megan-wound Skin No Abnormality No Abnormality Appearance) (Pt Warm) (Pt Warm) -Tenderness on Palpation (Megan-wound No Skin Appearance) -Ulcer Cleansing Rinsed/ Rinsed/ Irrigated with Irrigated with Saline Saline -Foul Odor after Cleansing No -Anesthetic Used 5% Lidocaine 5% Lidocaine Gel Gel -Wound Comment(s) scabbed WC - Nurse 2 - General Ulcer CM Notes Start: 10/30/23 13:08 Freq: Status: Active Protocol: Activity Type Activity Date Activity User E-sign Co-sign Detail Recorded Client Recorded Date Recorded By Document 10/30/23 13:29 Laptop 10/30/23 13:32 Document 11/06/23 13:28 Laptop 11/06/23 13:31 Document 11/13/23 13:12 Laptop 11/13/23 13:15 Document 11/20/23 13:08 Laptop 11/20/23 13:11 Document 11/27/23 13:18 Laptop 11/27/23 13:20 10/30/23 11/06/23 11/13/23 13:29 13:28 13:12 Wound Center Nurse 2 4. R hallux -Time 13: 13:28 13:14 -Correct Patient Yes Yes Yes -Correct Side, Site, Position Yes Yes Yes -Correct Procedure Yes Yes Yes -Procedure Performed Yes Yes Yes -Type of Procedure Debridement Debridement Debridement -Clinical Debridement Subcutaneous Subcutaneous Epidermis / Dermis -Tissue Removed Subcutaneous Subcutaneous Epidermis, Dermis -Post Debridement (cm) - Length 0.4 1.2 0.1 -Post Debridement (cm) - Width 0.4 0.8 0.1 -Post Debridement (cm) - Depth 0.1 0.1 0.1 -Total Square (Post) (cm) 0.16 0.96 0.01 -Area of Debridement (cm) - Length 0.4 1.2 0.1 -Area of Debridement (cm) - Width 0.4 0.8 0.1 -Total Square (Area) (cm) 0.16 0.96 0.01 -Tunneling No No No -Undermining/Tunneling No No No -Circular Undermining No No No -Wound/Ulcer Outcome Not Healed Not Healed Not Healed -Ulcer Cleansing Rinsed/ Rinsed/ Rinsed/ Irrigated with Irrigated with Irrigated with Saline Saline Saline -Foul Odor after Cleansing No No No -Bioengineered Tissue No No No -Bleeding Controlled with Pressure Pressure Pressure,Silver Nitrate -Treatment Response Procedure Procedure Procedure Tolerated Well Tolerated Well Tolerated Well -Offloading Yes No No -Type of Offloading Surgical Shoe -Debridement - Open, 1st 20sq cm Yes -Debridement - Subq, 1st 20sq cm Yes Yes No Pain Scale: 0-10 Numeric Is Patient Pain Free? Yes Yes Yes 11/20/23 11/27/23 13:08 13:18 Wound Center Nurse 2 4. R hallux -Time 13:09 13:18 -Correct Patient Yes Yes -Correct Side, Site, Position Yes Yes -Correct Procedure Yes Yes -Procedure Performed Yes Yes -Type of Procedure Debridement Debridement -Clinical Debridement Subcutaneous Subcutaneous -Tissue Removed Subcutaneous Subcutaneous -Post Debridement (cm) - Length 0.5 0.5 -Post Debridement (cm) - Width 0.4 0.3 -Post Debridement (cm) - Depth 0.1 0.1 -Total Square (Post) (cm) 0.20 0.15 -Area of Debridement (cm) - Length 0.5 0.5 -Area of Debridement (cm) - Width 0.4 0.3 -Total Square (Area) (cm) 0.20 0.15 -Tunneling No No -Undermining/Tunneling No No -Circular Undermining No No -Wound/Ulcer Outcome Not Healed Not Healed -Ulcer Cleansing Rinsed/ Rinsed/ Irrigated with Irrigated with Saline Saline -Foul Odor after Cleansing No No -Bioengineered Tissue No No -Bleeding Controlled with Pressure Pressure -Treatment Response Procedure Procedure Tolerated Well Tolerated Well -Offloading No No -Type of Offloading -Debridement - Open, 1st 20sq cm -Debridement - Subq, 1st 20sq cm Yes Yes Pain Scale: 0-10 Numeric Is Patient Pain Free? Yes Yes - Nurse 3 - General Ulcer D/C NN Start: 10/30/23 13:08 Freq: Status: Active Protocol: Activity Type Activity Date Activity User E-sign Co-sign Detail Recorded Client Recorded Date Recorded By Document 10/30/23 13:42 KW Desktop 10/30/23 13:43 KW Document 11/06/23 13:39 KW Desktop 11/06/23 13:39 KW Document 11/13/23 13:18 Desktop 11/13/23 13:18 Document 11/20/23 13:20 Desktop 11/20/23 13:21 Document 11/27/23 13:23 Laptop 11/27/23 13:23 10/30/23 11/06/23 11/13/23 13:42 13:39 13:18 Wound Care Center Nurse 3 4. R hallux -Ulcer Cleansing Rinsed/ Irrigated with Saline -Foul Odor after Cleansing -Other Dressing -Primary Dressing Covered/Secured with Dry Gauze,Other Other Other -Other Covering coban bandaid bandaide Pain Scale: 0-10 Numeric Is Patient Pain Free? Yes Yes Yes Teaching: Wound Center Dressing Your Wound -Person Taught -Teaching Method -Response to teaching - Visit Discharge Discharge Condition Stable Stable Stable Ambulatory Status Ambulatory Ambulatory Ambulatory Transportation Private Auto Private Auto Private Auto Medication Reconcilliation completed & No No No provided to patient/care provider Clinical Summary of Care Provided Yes Yes Yes 11/20/23 11/27/23 13:20 13:23 Wound Care Center Nurse 3 4. R hallux -Ulcer Cleansing Not Cleansed Rinsed/ Irrigated with Saline -Foul Odor after Cleansing No -Other Dressing betadine -Primary Dressing Covered/Secured with Other Dry Gauze, Secured with Tape -Other Covering betadine and bandaid\ Pain Scale: 0-10 Numeric Is Patient Pain Free? Yes Yes Teaching: Wound Center Dressing Your Wound -Person Taught Patient -Teaching Method Discussion -Response to teaching Verbalize understanding WC - Visit Discharge Discharge Condition Stable Stable Ambulatory Status Ambulatory Ambulatory Transportation Private Auto Private Auto Medication Reconcilliation completed & Yes No provided to patient/care provider Clinical Summary of Care Provided Yes No Assessment/Plan Assessment/Plan (1) Non-pressure chronic ulcer of other part of right foot limited to breakdown of skin: CODE(S): L97.511 - Non-pressure chronic ulcer of other part of right foot limited to breakdown of skin PLAN: Patient was examined and evaluated. All findings were discussed with the patient. All questions were answered to the patient's satisfaction. Excisional debridement down to including dermis tissue of the partial-thickness ulceration of the right hallux with number 5 mm curette without incident. Predebridement measurements Hyperkeratotic tissue. Postdebridement measurements are 0.5 x 0.3 x 0.1 cm. Ulceration was dressed with Betadine paint and sterile Band-Aid. Patient will follow-up to the hospital Saturday for elective right gastroc recession, first metatarsophalangeal joint arthrodesis with arthroplasty of the right hallux. Risk benefits education in great detail. She is ready move forward with surgery. Follow-up at the wound care center with Dr. Hernandez in 1 week. (2) Acute painful diabetic polyneuropathy: CODE(S): E11.42 - Type 2 diabetes mellitus with diabetic polyneuropathy
== END 2023-11-27 23:59 | disposition home or self-care (01) ==
LOC: WC 13:00
PROVIDERS: PCP Student in an Organized Health Care Education/Training Program; Referring Provider Student in an Organized Health Care Education/Training Program; Visit Provider Podiatrist Foot & Ankle Surgery
DX: E11.621 Type 2 diabetes mellitus with foot ulcer (principal); L97.512 Non-pressure chronic ulcer of other part of right foot with fat layer exposed; L97.521 Non-pressure chronic ulcer of other part of left foot limited to breakdown of skin; L97.511 Non-pressure chronic ulcer of other part of right foot limited to breakdown of skin; E11.42 Type 2 diabetes mellitus with diabetic polyneuropathy; Z79.4 Long term (current) use of insulin; M19.91 Primary osteoarthritis, unspecified site
CPT/HCPCS: 11042; 97597

== ENCOUNTER 2023-11-29 05:59 | Day surgery (SDC) | payer OTHER, SELFPAY ==
[2023-11-20 13:15] LABS: Vitamin D,25 Hydroxy 28.1 ng/mL
[2023-11-25 14:08] LABS: Cotinine Screen Blood <1.0 ng/mL (.); Nicotine Blood <1.0 ng/mL (.)
[2023-11-29] VITALS (8 sets, daily range): BP systolic 136–157; BP diastolic 84–94; PULSE 71–76; RESP 14–18; TEMP 35.9–36.8; O2SAT 93–100; BMI 39.4
--- NOTE | 2023-11-29 06:30 | RAD_ITS ---
STUDY: X-RAY - RIGHT FOOT CLINICAL: Female, 53 years old. MPJ fusion arthrodesis TECHNIQUE: 2 view(s) of the foot. COMPARISON: None. FINDINGS: Intraoperative fluoroscopic services provided for metatarsophalangeal fusion. RAD/Foot 2 Views IMPRESSION: Intraoperative fluoroscopic services provided a 4 minute tarsal phalangeal fusion. Electronically Signed: Willian Garduno MD at 12:40 EST ,
[2023-11-29] MEDS: Lactated Ringers 1,000 ML 15 ML IV (06:38)
[2023-11-29] MEDS: Magnesium 1 GM over 15 mins IV (06:39)
[2023-11-29] MEDS: Gabapentin 600 MG Tablet PO (06:41)
[2023-11-29] MEDS: Acetaminophen 500 MG Tablet 1000 MG PO (06:41)
[2023-11-29 07:09] LABS: Bedside Glucose 100 mg/dL (74-106)
[2023-11-29] MEDS: Cefazolin 3 GM in 0.9% Normal Saline (100mL Bag) 100 ML IV (07:30)
[2023-11-29] MEDS: Bupivacaine Mpf 0.5% 30 ML VIAL (10:41)
--- NOTE | 2023-11-29 11:04 | OP.PCM_ITS ---
Problems Associated Problem List Diagnoses (1) Arthritis of foot, right: (2) Hallux valgus (acquired), right foot: (3) Short Achilles tendon (acquired), right ankle: (4) Pain in right foot: (5) Other deformities of toe(s) (acquired), right foot: (6) Diabetic neuropathy, type I diabetes mellitus: Report of Operation Date of Procedure: 11/29/23 Pre-Operative Diagnosis: 1. Osteoarthritis, right foot 2. Hallux valgus deformity, right foot 3. Short Achilles tendon, right lower extremity 4. Pain, right foot 5. Other deformity of toe, right hallux 6. DM Type 1 Post-Operative Diagnosis: 1. Osteoarthritis, right foot 2. Hallux valgus deformity, right foot 3. Short Achilles tendon, right lower extremity 4. Pain, right foot 5. Other deformity of toe, right hallux 6. DM Type 1 Surgery/Procedure Performed:: 1. First metatarsophalangeal joint arthrodesis, right foot 2. [place] of calcaneal bone graft, right foot 3. Endoscopic gastroc recession, right lower extremity 4. IPJ arthroplasty, right hallux Description of Surgical Findings:: 1. 90% loss of articular cartilage appreciated to the first metatarsal head and proximal phalanx base. 2. Evidence of very soft bone secondary to the patient being diabetic type I 3. Good release of gastrocnemius aponeurosis with increased range of motion to the right ankle past 90 degrees with the knee extended and flexed. 4. Good apposition to the first metatarsophalangeal joint arthrodesis site Surgeon: Chandrakant Hernandez health technician hearing: Saqib Huerta Type of Anesthesia: General and Local Anesthesiologist: Salvatore Beltran Special Medications: Per anesthesia Specimen's removed: None Drains: None Estimated Blood Loss (mL): 35 mL Fluids Replaced: Per anesthesia Description of Procedure: Indications For Operation: Ms. Sherwood is a 53-year-old diabetic type I female who was admitted to [facility] for elective right first foot surgery consisting of endoscopic gastroc recession, first metatarsophalangeal joint arthrodesis, harvest of calcaneal bone graft and IPJ arthroplasty all of the right lower extremity and right hallux. Patient had undergone previous minimally invasive right IPJ right hallux arthroplasty with success. However there showed evidence of decreased range of motion after the procedure when the patient had follow-up over the course of the month. Due to nature of the patient's persistent bunion as well as decreased range of motion to the IPJ of the right hallux and right first metatarsophalangeal joint, it has been deemed necessary at this time to take the patient to the operating room to perform the above procedures as written to help decrease her pain and correct her deformity. The nature of the problem, anticipated procedures, postop recovery/convalences and risk/complications include but not limited to infection, wound healing complications, hypertrophic scarring, numbness, tingling, chronic pain, CRPS, over and under correction, recurrence of deformity, DVT and or PE and the need for further surgery have been discussed in great detail with the patient. All questions have been answered to the patient's satisfaction. There are no guarantees given as to the outcome of the procedure. Description of Procedure: Under mild sedation, the patient was brought into the operating room and placed on the operating table in supine position. Once the patient was under general anesthesia with laryngeal mask airway, the right lower extremity was blocked with popliteal block provided by anesthesia prior to the case start. Please see anesthesia notes for further detail. Next, a well-padded thigh tourniquet was applied to the right lower extremity. Next, the right lower extremity was prepped and draped in normal aseptic manner. Next, a timeout was then undertaken verifying the correct patient, extremity, visibility of preoperative markings, availability of the equipment. Next, attention was directed to the right lower extremity. Using a 4 inch Esmarch, right lower extremity was exsanguinated and elevated to 60 degrees for 1 minute. Procedure #1, endoscopic gastroc recession, right lower extremity Next, attention was directed to the right lower extermity. A silfverskiold test was performed on the operating table. There was evidence of a positive Silfverskiold test for gastrocnemius equinus. Next, attention was directed to the aponeurosis of the gastrocnemius muscle. A small stab incision was placed approximately 2 to 3 cm from the gastroc insertion. Using the [email or web address] pulp mill operator the aponeurosis was bow strong and then advanced to the lateral aspect of the right lower extremity. Once tenting of the skin was identified a small stab incision was made with a 15 blade laterally. Using the [email or web address] obturator and cannula, it was advanced through both incisions. Using the Manas 30 degree 4- 0 millimeter scope there showed evidence of the aponeurosis of the gastrocnemius muscle. Using the rasp the muscle fibers/Sub Q were removed from the aponeurosis tissue. Using the Manas 30 degree 4-0 millimeter scope and triangle blade, careful incision across the aponeurosis was made half laterally then half medially until released. After release of the aponeurosis the ankle was put through range of motion with the knee extended as well as flexed and showed to be increased past 90 in both positions. Both incisions were flushed with copious polo of warm saline. Next, injection of 2.5 cc of [employer] Viaflow was injected to the endoscopic gastroc recession area to aid in healing and decrease adhesions. Procedure #2, harvest of calcaneal bone graft, right foot Next, attention was directed to the lateral aspect of the right calcaneus. Using a #15 blade, a full-thickness incision, approximately 1 cm, was made down to bone without incident. Continued blunt dissection was carried out with curved hemostats. Using the Arthrex 8 mm osteoagar, calcaneal bone harvest less than than 5 cc was made, then removed from the calcaneus and passed the back table to be used later in the case, for the first metatarsophalangeal joint right foot arthrodesis procedure. The incision was flushed with copious polo of normal saline. The skin was reapproximated and closed using 3-0 nylon in simple interrupted suture technique. Procedure #3, first metatarsophalangeal joint arthrodesis, right foot Next, using a #15 blade, a full-thickness incision down to bone was made medial to the extensor hallucis longus tendon, right foot. The extensor hallucis longus tendon was protected and continued dissection was carried down and around the first metatarsal phalangeal joint. Care was taken to remove the periosteum at the level of the surgical neck of the first metatarsal and head as well as the base of the proximal phalanx. The joint was inspected and showed evidence of moderate to severe osteoarthritis as well as 90% loss of articular surface of the first metatarsal head and base of the proximal phalanx. Using 18 mm cup and cone reamers the head of the first metatarsal and base of the proximal phalanx were prepped. The additional overgrowth of bone was removed with rongeur and discarded. The incision area was flushed with copious also normal saline. A 2- 0 mm drill was used to fenestrate the head of the first metatarsal and base of the proximal phalanx. After fenestration was complete, the autograft that was removed from the prior procedure was placed in the first metatarsal phalangeal joint and the first metatarsal phalangeal joint was placed in a anatomical position with the hallux parallel to the second digit with the toenail facing up, with 10 degrees of dorsiflexion with 10 degrees of valgus rotation, and fixated in this position with a 1.4 mm fixation pin. The [facility] Crosscheck plate was placed per the medical transcription's recommendation with the rep in the room. 2 distal 3.5 millimeter locking screws were placed. The crossing screw was predrilled using a 2.5 mm drill and guide. The depth of the drill was checked with fluoroscopy and depth gauge to the ensure that the far cortex was reached. After the depth was checked, a 3.5 x 30 mm crossing screw was placed through the plate. Prior to engagement of the far cortex of the 1st metatarsal, the proximal BB tack was removed and further compression was noted across the arthrodesis site of the 1st metatarsal phalangeal joint. Next, 2 additional 3.5 mm locking screws were placed in the proximal plate. All screw lengths were checked clinically as well as with large C-arm fluoroscopy. Attempt was made to put the first metatarsophalangeal joint through range of motion, which showed evidence of loosening to the proximal screws secondary to poor bone quality. Decision was made to place an additional interfrag screw across the first metatarsal phalangeal joint. Using [email or web address]'s fully threaded screw, the guidewire for the screw was placed from distal medial to proximal lateral, across the first metatarsophalangeal joint, and since the patient has soft bone no countersink or drilling was attempted. Next, a fully threaded 4.0 mm x 32 mm fully headed screw dart fire edge screw, cannulated screw, was placed across the first metatarsophalangeal joint. Again attempt was made to put the first metatarsophalangeal joint through range of motion which showed no evidence of range of motion after placement of the interfrag screw. The proximal screws as well as the distal screws in the plate were sitting flush with no evidence of backing out or failure at this time. Procedure #4, IPJ arthroplasty, right hallux Next, through a separate incision, attention was directed to the medial aspect of the right hallux. Using a #15 blade a equidistant incision was made medially to the IPJ of the right hallux. Continued blunt dissection was carried down to bone. The IPJ joint was identified and released from all contractures. Using a sagittal saw and #111 blade, an osteotomy was performed at approximately one quarter proximal from the IPJ of the right hallux. Osteotomy was confirmed with large C arm and clinically. Using a small [place] elevator, all soft tissues were released around the osteotomy site. Using a pickup and 15 blade, the distal bone fragment was removed and passed the back table to be discarded. There is evidence of increased range of motion when the IPJ joint was put through range of motion. All incisions were flushed with copious polo of normal saline. The right thigh tourniquet was deflated and reperfusion to the right lower extremity was noted. The medial and lateral leg incisions were closed with 3-0 nylon in simple interrupted suture technique. The first metatarsophalangeal joint arthrodesis incision was closed in layers using 3-0 Vicryl in running locking suture technique and running suture technique with care to avoid entrapment of the saphenous nerve and allowing it to sit free in the soft tissue. The skin was reapproximated and closed with 3-0 nylon in simple interrupted suture technique. The lateral hallux incision, deep layer was closed with 3-0 Vicryl in buried suture technique. The skin was reapproximated and closed using 3-0 Vicryl in simple interrupted suture technique. The right lower extremity was wiped clean and patted dry. All incisions were covered with Betadine soaked Adaptic, 4 x 4's, Kerlix, and a 2 layer AO Emery splint was applied to the right lower extremity in 9 degree fashion. The patient tolerated the procedure and anesthesia well and apparent satisfactory condition and was transported to the PACU for further monitoring prior to discharge home. Vital signs stable and vascular status intact to all digits bilateral. Post Operative Plan: Weightbearing: Nonweightbearing to the right lower extremity. Full weightbearing to the left lower extremity. Antibiotics: 3 g Ancef through the IV DVT Prophylaxis: 81 mg aspirin Lee: None Dressing: Betadine soaked Adaptic, dry sterile dressing, 2 layer Emery AO splint at 90 degree fashion. X-Rays: Post-operative films taken on the operating room. Pain Medication: Percocet 5/325, Flexeril 10 mg 3 times daily Follow-up: Patient will follow-up [address] Hernandez at the wound care center for evaluation and dressing change. Grafts/Implants Used: 1. Autograft, calcaneal bone harvest. 2. 2.5 cc Viaflow Complications 1. Patient showed evidence of soft bone secondary to her diabetes type 1 condition. When testing the first metatarsal phalangeal joint with range of mo tion the proximal locking screw as well as nonlocking screw backed out. Attempt was made to reposition longer screws without success as well as with failure of good hardware bite and. Decision was made to throw a 4.0 x 32 mm fully threaded screw. After interfrag screw was complete range of motion was attempted the first metatarsal phalangeal joint and the fixation was solid with no evidence of range of motion or problem with dorsal plate hardware. Admit VTE Documentation VTE Present on Admission: No VTE Mechan Device Prophylaxis: SCD's VTE Pharm Prophylaxis ordered?: Yes
[2023-11-29 11:22] LABS: Bedside Glucose 140 mg/dL (74-106)
== END 2023-11-29 12:57 | disposition home or self-care (01) ==
LOC: SDC 05:59 → AC 06:00
PROVIDERS: PCP Student in an Organized Health Care Education/Training Program; Referring Provider Podiatrist Foot & Ankle Surgery; Visit Provider Podiatrist Foot & Ankle Surgery
PROC: (CPT 29999; principal; 2023-11-29 07:15)
DX: M19.071 Primary osteoarthritis, right ankle and foot (principal); I11.0 Hypertensive heart disease with heart failure; I50.32 Chronic diastolic (congestive) heart failure; E10.42 Type 1 diabetes mellitus with diabetic polyneuropathy; Z79.4 Long term (current) use of insulin; M20.11 Hallux valgus (acquired), right foot; M20.5X1 Other deformities of toe(s) (acquired), right foot; M67.01 Short Achilles tendon (acquired), right ankle; X58.XXXA Exposure to other specified factors, initial encounter; Z79.82 Long term (current) use of aspirin; Z79.899 Other long term (current) drug therapy; Z86.16 Personal history of COVID-19
CPT/HCPCS: 28750; 28755; 20900; 29999; 01480; 64445; 36415; 73620; 76000; 80323; 82306; 82962; 83036; 83735; 87081; C1713; J7120; G0480; J2405; J3475

== ENCOUNTER → 2023-12-30 | Outpatient (CLI) | payer OTHER, SELFPAY | END | disposition home or self-care (01) | PROVIDERS: PCP Student in an Organized Health Care Education/Training Program; Visit Provider Podiatrist | DX: L97.519 Non-pressure chronic ulcer of other part of right foot with unspecified severity (principal) | CPT/HCPCS: 87070; 87075; 87101; 87205 ==

== ENCOUNTER 2024-12-24 10:32 | Day surgery (SDC) | payer BC, SELFPAY ==
--- NOTE | 2024-12-21 18:05 | PAT.ANESEVAL ---
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 When Was Last Pacemaker Check QUESTION #4 FULL TEXT: You/Your Family Experience fever (hyperthermia) with Anesthesia Last Oral Intake Last Oral intake: Last Oral Intake NPO since Meds taken in AM with sips of water? Meds patient instructed to take am of surgery PONV PONV - warehouse distribution associate: PONV - warehouse distribution associate Female Yes 12/21/24 12:04 HX of Motion Sickness No 12/21/24 12:04 HX of N/V After Surgery No 12/21/24 12:04 Non-Smoker Yes 12/21/24 12:04 Duration of Surgery greater No 12/21/24 12:04 than 60 minutes Number of Risk Factors 2 12/21/24 12:04 PONV Score Moderate Risk 12/21/24 12:04 Height & Weight Height & Weight: Anesthesia: Height & Weight Height 5 ft 10 in 11/26/24 11:07 Respiratory Assessment Respiratory Assessment - warehouse distribution associate: Respiratory Tract Infection Hx - warehouse distribution associate Hx Respiratory Tract Infection No 12/21/24 12:04 STOP Sleep Apnea STOP Sleep Apnea - warehouse distribution associate: STOP Sleep Apnea - warehouse distribution associate Hx Hypertension Yes 12/21/24 12:04 Hx Sleep Apnea Yes 12/21/24 12:04 CPAP No 12/21/24 12:04 BIPAP Yes 12/21/24 12:04 Do you snore loudly (louder than talking or can be heard Do you often feel tired/ fatigued/ sleepy during daytime? Has anyone observed you stop breathing during sleep? STOP Results Positive 12/21/24 12:04 QUESTION #5 FULL TEXT : Do you snore loudly (louder than talking or can be heard through closed doors)? Tobacco Use History Tobacco Use History - warehouse distribution associate: Tobacco Use History - warehouse distribution associate Tobacco Use Smoking Status Never smoker 12/21/24 12:04 Hx Tobacco Use No 12/21/24 12:04 Years Smoking Packs Smoked per Day Smoking Cessation Date was within the last 15 years Hx Smoking Cessation Date Hx Smoking Cessation Counseling Hematologic Medial History Hematologic Hx - warehouse distribution associate: Hematologic Medical Hx - master tax advisor Hx of Blood Transfusion No 12/21/24 12:04 Hx of Transfusion in last 3 No 12/21/24 12:04 Months Date of Last Transfusion (if within last 3 months) Ever experience any problems No 12/21/24 12:04 with transfusion(s)? Specify any problems Hx of Preganancy in last 3 No 12/21/24 12:04 Months Nurse Filling Out Transfusion VCHRISTIN 12/21/24 12:04 & Questions: Date: 12/21/24 12/21/24 12:04 Time: 12:05 12/21/24 12:04 Patient unable to answer at this time (ie. confused, unrespo /Reproduction History /Reproductive History - warehouse distribution associate: /Reproductive Hx- warehouse distribution associate Hx Now No 12/21/24 12:04 Gestational Age (in weeks): EDC: Hx Hx Para Hx Section SAB No 12/21/24 12:04 [facility] Medical History (Updated 12/21/24 @ 12:04 by Elizabeth Hernández) Cardiology follow-up encounter Iron deficiency anemia due to chronic blood loss Open wound Low iron High cholesterol Easy bruising Gastric reflux Non-smoker History of echocardiogram Bleeding tendency Back pain due to injury History of stress test Osteoarthritis of right foot Non-pressure chronic ulcer of other part of right foot with fat layer exposed Type 2 diabetes mellitus with diabetic polyneuropathy Peripheral vascular disease, unspecified Acute hypokalemia Diabetic ketoacidosis associated with type 1 diabetes mellitus Hallux rigidus, right foot Anemia in chronic kidney disease History of gastroscopy Pleural effusion Urinary retention Peripheral edema Thyromegaly LANA (obstructive sleep apnea) Palpitations Neck mass Nasal lesion Lumbar facet arthropathy Lumbar degenerative disc disease Hypersomnia Dilated bile duct Bipolar disorder with moderate depression Chronic diastolic (congestive) heart failure Low back pain Hallux valgus Gastroparesis due to secondary diabetes Diabetic neuropathy Diabetes mellitus with microalbuminuria, with long-term current use of insulin Dyslipidemia Non-alcoholic cirrhosis Pancreatitis Diabetic foot ulcer associated with type 2 diabetes mellitus Acute necrosis of pancreas Gastritis Tubular adenoma of colon COVID Wears glasses Wears partial dentures Depression Anxiety Insulin dependent diabetes mellitus History of renal disease Liver disease Excessive bleeding Dietary restriction Sleep apnea Shortness of breath on exertion History of edema Leg cramps History of cardiac murmur Obesity Mixed hyperlipidemia Benign essential hypertension Stage 3 chronic kidney disease due to type 2 diabetes mellitus Vitamin deficiency GERD (gastroesophageal reflux disease) Hyperlipidemia HTN (hypertension) Migraine Back problem Atrial fibrillation Arthritis Allergies Anemia Home Medications ?Medication ?Instructions ?Recorded ?Last Taken ?Type pantoprazole 40 mg tablet,delayed 40 mg PO DAILY gerd 08/03/22 11/28/23 History release nitroglycerin 0.4 mg sublingual 0.4 mg sublingual Q5M angina 07/10/23 Unknown History tablet bumetanide 1 mg tablet 1 mg PO DAILY diuretic 09/21/23 11/28/23 History acetaminophen 500 mg capsule 1,000 mg PO Q6H PRN pain 09/30/23 11/28/23 History multivitamin (Daily Multi-Vitamin 1 tab PO DAILY 09/30/23 11/28/23 History tablet) docusate sodium 100 mg capsule 100 mg PO TID 11/26/24 Unknown History (Colace) mirtazapine 30 mg tablet 30 mg PO QHS 11/26/24 Unknown History insulin aspart U-100 100 unit/mL 22 unit subcut TID 12/21/24 Unknown History (3 mL) subcutaneous pen (Novolog FlexPen U-100 Insulin aspart) insulin degludec 100 unit/mL (3 80 unit subcut DAILY 12/21/24 Unknown History mL) subcutaneous pen lovastatin 40 mg tablet 40 mg PO DAILY 12/21/24 Unknown History metoprolol succinate 25 mg capsule 25 mg PO DAILY 12/21/24 Unknown History sprinkle, ext. release 24 hr prochlorperazine maleate 5 mg 5 mg PO BID 12/21/24 Unknown History tablet topiramate 100 mg tablet 100 mg PO BID 12/21/24 Unknown History Allergy/AdvReac Type Severity Reaction Status Date / Time lactase (From Dairy Aid) Allergy Severe diarrhea Verified 12/21/24 11:52 codeine Allergy Intermediate mental Verified 12/21/24 11:52 status diphenhydramine (From Allergy Intermediate mental Verified 12/21/24 11:52 Benadryl Allergy) status quetiapine (From Seroquel) Allergy Intermediate about Verified 12/21/24 11:52 killed me - went into DKA morphine Allergy Other Verified 12/21/24 11:52 Family History Mother Arthritis Depression Diabetes Father Arthritis Cancer Melanoma Diabetes Kidney disease Brother Arthritis Hypoglycemia Grandfather Myocardial infarction Grandmother Diabetes Surgical History History of meniscectomy of right knee History of laparoscopic cholecystectomy History of foot surgery S/P hysterectomy H/O gastric bypass H/O cardiac catheterization Hx of colonoscopy History of hysterectomy History of esophagogastroduodenoscopy (EGD) Social History Smoking Status: Never smoker alcohol intake: current diet: diabetic and lactose free Audit: Pertinent Findings Pertinent Findings EKG Perinent findings: EKG 09/23/23: Normal sinus rhythm Normal ECG Echo (EF%) pertinent findings: Echo 08/27/2023: Normal LV size, LVEF normal, LVEF 60%, no RWA Recommendation Anesthesia Recommendation Anesthesia recommendation: OPTIMIZED for anesthesia
[2024-12-24] VITALS (10 sets, daily range): BP systolic 124–145; BP diastolic 79–93; PULSE 78–89; RESP 14–18; TEMP 36.1–36.9; O2SAT 96–100; BMI 38.9
--- NOTE | 2024-12-24 11:22 | HP.PCM_ITS ---
HPI - General General Date of Admission: 12/24/24 Date of Service: 12/24/24 Chief Complaint: abdominal pain and anemia HPI Narrative KORI SHEPHERD, is a 54 F who presents [facility] Medical History (Updated 12/21/24 @ 12:04 by Elizabeth Hernández) Cardiology follow-up encounter Iron deficiency anemia due to chronic blood loss Open wound Low iron High cholesterol Easy bruising Gastric reflux Non-smoker History of echocardiogram Bleeding tendency Back pain due to injury History of stress test Osteoarthritis of right foot Non-pressure chronic ulcer of other part of right foot with fat layer exposed Type 2 diabetes mellitus with diabetic polyneuropathy Peripheral vascular disease, unspecified Acute hypokalemia Diabetic ketoacidosis associated with type 1 diabetes mellitus Hallux rigidus, right foot Anemia in chronic kidney disease History of gastroscopy Pleural effusion Urinary retention Peripheral edema Thyromegaly LANA (obstructive sleep apnea) Palpitations Neck mass Nasal lesion Lumbar facet arthropathy Lumbar degenerative disc disease Hypersomnia Dilated bile duct Bipolar disorder with moderate depression Chronic diastolic (congestive) heart failure Low back pain Hallux valgus Gastroparesis due to secondary diabetes Diabetic neuropathy Diabetes mellitus with microalbuminuria, with long-term current use of insulin Dyslipidemia Non-alcoholic cirrhosis Pancreatitis Diabetic foot ulcer associated with type 2 diabetes mellitus Acute necrosis of pancreas Gastritis Tubular adenoma of colon COVID Wears glasses Wears partial dentures Depression Anxiety Insulin dependent diabetes mellitus History of renal disease Liver disease Excessive bleeding Dietary restriction Sleep apnea Shortness of breath on exertion History of edema Leg cramps History of cardiac murmur Obesity Mixed hyperlipidemia Benign essential hypertension Stage 3 chronic kidney disease due to type 2 diabetes mellitus Vitamin deficiency GERD (gastroesophageal reflux disease) Hyperlipidemia HTN (hypertension) Migraine Back problem Atrial fibrillation Arthritis Allergies Anemia Home Medications ?Medication ?Instructions ?Recorded ?Last Taken ?Type pantoprazole 40 mg tablet,delayed 40 mg PO DAILY gerd 08/03/22 11/28/23 History release nitroglycerin 0.4 mg sublingual 0.4 mg sublingual Q5M angina 07/10/23 Unknown History tablet bumetanide 1 mg tablet 1 mg PO DAILY diuretic 09/2111/28/23 History acetaminophen 500 mg capsule 1,000 mg PO Q6H PRN pain 09/30/23 11/28/23 History multivitamin (Daily Multi-Vitamin 1 tab PO DAILY 09/3011/28/23 History tablet) docusate sodium 100 mg capsule 100 mg PO TID 11/26/24 Unknown History (Colace) mirtazapine 30 mg tablet 30 mg PO QHS 11/26/24 Unknow n History insulin aspart U-100 100 unit/mL 22 unit subcut TID 12/24/24 History (3 mL) subcutaneous pen (Novolog 6 uni t FlexPen U-100 Insulin aspart) insulin degludec 100 unit/mL (3 80 unit subcut DAILY 0 12/21/24 Unknown History mL) subcutaneous pen lovastatin 40 mg tablet 40 mg PO DAILY 12/21/24 Unkn own History metoprolol succinate 25 mg capsule 25 mg PO DAILY 11/2912/24/24 06:30 History sprinkle, ext. release 24 hr prochlorperazine maleate 5 mg 5 mg PO BID 12/21/24 Unk nown History tablet topiramate 100 mg tablet 100 mg PO BID 12/21/24 Unkno wn History Allergy/AdvReac Type Severity Reaction Status Date / Time lactase (From Dairy Aid) Allergy Severe diarrhea Verified 12/24/24 10:55 codeine Allergy Intermediate mental Verified 12/24/24 10:55 status diphenhydramine (From Allergy Intermediate mental Verified 12/24/24 10:55 Benadryl Allergy) status quetiapine (From Seroquel) Allergy Intermediate about Verified 12/24/24 10:55 killed me - went into DKA morphine Allergy Other Verified 12/24/24 10:55 Family History Mother Arthritis Depression Diabetes Father Arthritis Cancer Melanoma Diabetes Kidney disease Brother Arthritis Hypoglycemia Grandfather Myocardial infarction Grandmother Diabetes Surgical History History of meniscectomy of right knee History of laparoscopic cholecystectomy History of foot surgery S/P hysterectomy H/O gastric bypass H/O cardiac catheterization Hx of colonoscopy History of hysterectomy History of esophagogastroduodenoscopy (EGD) Social History Smoking Status: Never smoker alcohol intake: current diet: diabetic and lactose free Vital Signs Vital Signs Vital Signs: 12/24/24 10:58 12/24/24 10:58 Temperature 97.2 F L Temperature Source Temporal Pulse Rate 89 Respiratory Rate 14 Respiratory Pattern Normal Blood Pressure 145/93 H Blood Pressure Mean 110 Blood Pressure Source Monitor Blood Pressure Position Semi-Fowlers Blood Pressure Location Left Arm Pulse Ox 100 Oxygen Delivery Method Room Air Weight Weight: 263 lb 14.293 oz Body Mass Index (BMI) 38.9
--- NOTE | 2024-12-24 11:22 | PCM.HP.STD ---
HPI - General General Date of Admission: 12/24/24 Date of Service: 12/24/24 Chief Complaint: abdominal pain and anemia HPI Narrative JANNETH JOAO, is a 54 F who presents for endoscopic evaluation of abdominal pain and anemia. PMH DM II with neuropathy (poorly controlled), hematuria, depression, bipolar disorder, HTN, osteoarthritis, thyromegaly, systolic ejection murmur. Prior workup: KUB 11.. for lower abdominal pain and constipation found nonobstructive bowel gas pattern. US abd 11.17.21 CBD at 10mm at lópez hepatis and remain dilated into distal portion. Remained of study without abnormality. *BGI Established 11.24.21 for evaluation of postprandial nausea with bad taste in her mouth. EGD and colonoscopy .06.18 with LA Grade A reflux esophagitis; erythematous mucosa of antrum (gastritis) and pylorus. H.pylori negative. Colonoscopy found one 5mm tubular adenoma polyp, retrieved; congested mucosa of RS, sigmoid colons, splenic flexure, transverse colon and ascending colon. OV 01.17.22 with recommendation of ERCP to address biliary ductal abnormalities. 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 Cytology negative for malignant cells. [facility] hospitalization .03.18-03.02.22 Following ERCP she had significant abdominal pain and was admitted to [facility] for observation. Discharged without further intervention. Biochemical CA19-9 WNL. Lipase 03.02.[address] Silveira stating that Janneth was having difficulty with constipation and rectal bleeding. Phone call placed to Janneth 03.05.22 to discuss. Denies recent or current rectal bleeding. Admits to difficulty with Colace. Advised to increase Linzess to 290mg QD. [facility] ED presentation 03.06.22 with abdominal pain. Noted lipase elevation consistent with pancreatitis. Fluid and Zofran provided; Biochemical workup without comment (lipase WNL 136) and she was discharged home. [facility] hospitalization .-03.20.22 with fever and decreased appetite. She was admitted for further evaluation of CT scan abnormality of 9cm collection of fluid versus necrotic collection along tail of pancreas. Started on TPN r/t ongoing nausea and vomiting. CT abd/pel 03.12.22 noting CBD stent placement; pancreas with surrounding fat stranding of pancreatic tail with large fluid collection 8.3x8.1x9cm around the tail with large amount of free air. CT abd/pel 03.15.22 noting bilateral pneumonia; gallbladder contracted; biliary stent in place; diffuse enlargement of pancreas with juliette-pancreatic edema suggesting acute pancreatitis, pancreatic tail fluid collection containing air measuring 10.2x5.2x8.3cm. US abd 03.16.22 for ascites eval without ascites present. CT abd/pel 03.19.22 noting biliary stent with pneumobilia; no changes in the fluid collection on the tail of the pancreas. [facility] transfer 03.20.22 for further treatment of fluid collection. Discharged 03.22.22 CT abd/pel [facility] with pancreatic protocol 03.21.22 noting 11.1x8.5cm collection of air and fluid between stomach and spleen along pancreatic tail which closely abuts the gastric wall and infiltration the splenic hilum, partially nonencapsulated and heterogeneous; severe attenuation of the distal splenic vein at the level above described collection concerning for occlusion, portal and vein and portal splenic confluence remain patent. Outpatient f/u with [facility] CT abd/pel [facility] for necrotizing pancreatitis 04.13.22 noting borderline generalized parenchymal volume loss of pancreas, with irregular low-attenuation collection adjacent to pancreatic tail, splenic hilum and posterior lateral stomach with a few foci of air in the collection, this collection is decreased in size; stomach mildly distended. CT abd/pel [facility] for necrotizing pancreatitis 05.17.22 noting pancreatic inflammatory changes contiguous with pancreatic tail and peripancreatic region with complex fluid collection containing foci of air has decreased in size now measuring 2.3x2.2cm. Gallbladder contracted. Cholecystectomy 05.24.22 [facility] ED presentation 08.04.22 with nausea with emesis and diarrhea. She was given IVF, pain medication and Zofran and discharged home in stable condition. PCP workup CT abd/pel 11.14.22 Linda Jones ordered by PCP noting mild prominence of intrahepatic ducts and CBD with dilation up to 14mm at lópez hepatis with distal tapering without calculus; mild dilation of pancreatic duct in head only; mildly atrophic pancreas. OV 09.07.22 biochemical workup. Biochemical workup CBC, CMP (glucose *H742), lipase, amylase, triglycerides without pertinent abnormality. ? CRP H3.40 [facility] ED presentation 09.07.22 for evaluation regarding BS following biochemical workup from this clinic with BS 742. Fluids and insulin administered and discharged home. OV 5. nausea, reflux continue to be an issue that is triggered specifically by spicy foods and soda, she does practice avoidance of these. [facility] hospitalization 07.10.23-9 and 08.19.23-08.21.23 for management of DKA, pseudohyponatremia, wound care, [facility] established for anemia. Stresses need for diabetic and chronic condition attention to prevent complications. OV 11.. Continues to have N/V/D which is stable for her; emesis typically postprandially. BS this morning: monitor reads high, she did not take her insulin shot this morning as she did not want to have a drop of blood sugar. Last A1c 14 several months ago, reports she will be getting an insulin pump next week. OV 3..24 continues to have nausea. Last A1c 8 in October, this has improved with start of insulin pump. OV 1.31.25 pt continues to have N/V/D daily. pt reports that about 5 minutes after she eats or drinks she is either throwing up or having diarrhea. [facility] Medical History Cardiology follow-up encounter Iron deficiency anemia due to chronic blood loss Open wound Low iron High cholesterol Easy bruising Gastric reflux Non-smoker History of echocardiogram Bleeding tendency Back pain due to injury History of stress test Osteoarthritis of right foot Non-pressure chronic ulcer of other part of right foot with fat layer exposed Type 2 diabetes mellitus with diabetic polyneuropathy Peripheral vascular disease, unspecified Acute hypokalemia Diabetic ketoacidosis associated with type 1 diabetes mellitus Hallux rigidus, right foot Anemia in chronic kidney disease History of gastroscopy Pleural effusion Urinary retention Peripheral edema Thyromegaly LANA (obstructive sleep apnea) Palpitations Neck mass Nasal lesion Lumbar facet arthropathy Lumbar degenerative disc disease Hypersomnia Dilated bile duct Bipolar disorder with moderate depression Chronic diastolic (congestive) heart failure Low back pain Hallux valgus Gastroparesis due to secondary diabetes Diabetic neuropathy Diabetes mellitus with microalbuminuria, with long-term current use of insulin Dyslipidemia Non-alcoholic cirrhosis Pancreatitis Diabetic foot ulcer associated with type 2 diabetes mellitus Acute necrosis of pancreas Gastritis Tubular adenoma of colon COVID Wears glasses Wears partial dentures Depression Anxiety Insulin dependent diabetes mellitus History of renal disease Liver disease Excessive bleeding Dietary restriction Sleep apnea Shortness of breath on exertion History of edema Leg cramps History of cardiac murmur Obesity Mixed hyperlipidemia Benign essential hypertension Stage 3 chronic kidney disease due to type 2 diabetes mellitus Vitamin deficiency GERD (gastroesophageal reflux disease) Hyperlipidemia HTN (hypertension) Migraine Back problem Atrial fibrillation Arthritis Allergies Anemia Home Medications ?Medication ?Instructions ?Recorded ?Last Taken ?Type pantoprazole 40 mg tablet,delayed 40 mg PO DAILY gerd 08/03/22 11/28/23 History release nitroglycerin 0.4 mg sublingual 0.4 mg sublingual Q5M angina 07/10/23 Unknown History tablet bumetanide 1 mg tablet 1 mg PO DAILY diuretic 09/21/23 11/28/23 History acetaminophen 500 mg capsule 1,000 mg PO Q6H PRN pain 09/30/23 11/28/23 History multivitamin (Daily Multi-Vitamin 1 tab PO DAILY 09/30/23 11/28/23 History tablet) docusate sodium 100 mg capsule 100 mg PO TID 11/26/24 Unknown History (Colace) mirtazapine 30 mg tablet 30 mg PO QHS 11/26/24 Unknown History insulin aspart U-100 100 unit/mL 22 unit subcut TID 12/21/24 12/24/24 History (3 mL) subcutaneous pen (Novolog 6 unit FlexPen U-100 Insulin aspart) insulin degludec 100 unit/mL (3 80 unit subcut DAILY 12/21/24 Unknown History mL) subcutaneous pen lovastatin 40 mg tablet 40 mg PO DAILY 12/21/24 Unknown History metoprolol succinate 25 mg capsule 25 mg PO DAILY 12/21/24 12/24/24 06:30 History sprinkle, ext. release 24 hr prochlorperazine maleate 5 mg 5 mg PO BID 12/21/24 Unknown History tablet topiramate 100 mg tablet 100 mg PO BID 12/21/24 Unknown History Allergy/AdvReac Type Severity Reaction Status Date / Time lactase (From Dairy Aid) Allergy Severe diarrhea Verified 12/24/24 10:55 codeine Allergy Intermediate mental Verified 12/24/24 10:55 status diphenhydramine (From Allergy Intermediate mental Verified 12/24/24 10:55 Benadryl Allergy) status quetiapine (From Seroquel) Allergy Intermediate about Verified 12/24/24 10:55 killed me - went into DKA morphine Allergy Other Verified 12/24/24 10:55 Family History Mother Arthritis Depression Diabetes Father Arthritis Cancer Melanoma Diabetes Kidney disease Brother Arthritis Hypoglycemia Grandfather Myocardial infarction Grandmother Diabetes Surgical History History of meniscectomy of right knee History of laparoscopic cholecystectomy History of foot surgery S/P hysterectomy H/O gastric bypass H/O cardiac catheterization Hx of colonoscopy History of hysterectomy History of esophagogastroduodenoscopy (EGD) Social History Smoking Status: Never smoker alcohol intake: current diet: diabetic and lactose free ROS Constitutional Constitutional: Denies fatigue, fever(s), poor appetite, weight gain or weight loss Gastrointestinal Gastrointestinal: Denies belching, bloating, change in bowel habits, change in stool character, chewing difficulty, coffee ground emesis, constipation, cramping, diarrhea, dyspepsia, dysphagia, early satiety, excessive flatus, fecal incontinence, heartburn, hematemesis, hematochezia, hemorrhoids, loose stools, melena, nausea, odynophagia, rectal bleeding, tenesmus, vomiting or weight changes Vital Signs Vital Signs Vital Signs: 12/24/24 10:58 12/24/24 10:58 Temperature 97.2 F L Temperature Source Temporal Pulse Rate 89 Respiratory Rate 14 Respiratory Pattern Normal Blood Pressure 145/93 H Blood Pressure Mean 110 Blood Pressure Source Monitor Blood Pressure Position Semi-Fowlers Blood Pressure Location Left Arm Pulse Ox 100 Oxygen Delivery Method Room Air Weight Weight: 263 lb 14.293 oz Body Mass Index (BMI) 38.9 Physical Exam Const alert, oriented x3, no apparent distress and healthy appearing General Appearance: cooperative GI normal to inspection, nondistended, normoactive bowel sounds, soft to palpation, non-tender and non-distended Percussion: normal to percussion Rectal Exam: deferred Assessment & Plan Assessment/Plan (1) Functional abdominal pain syndrome: (2) Gastroparesis: (3) Iron deficiency anemia due to chronic blood loss: (4) Anemia: QUALIFIERS: Anemia type: iron deficiency Iron deficiency anemia type: chronic blood loss Qualified Code(s): D50.0 - Iron deficiency anemia secondary to blood loss (chronic) PLAN: Assessment and Plan Assessment and Plan (1) Pancreatitis: Status: Chronic Qualifiers: Chronicity: acute Pancreatitis type: other Acute pancreatitis complication: unspecified Qualified Code(s): K85.80 - Other acute pancreatitis without necrosis or infection Plan: 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 Her last HgbA1c was above 14. Her current hemoglobin A1c is still high at 10. He is tolerating all normal insulin. Will need repeat imaging of her pancreas along with amylase, lipase, fecal elastase. (2) Diabetes: Status: Chronic Qualifiers: Diabetes mellitus type: type 2 Diabetes mellitus terminal system operator insulin use: with fci use Diabetes mellitus complication status: with hyperglycemia Qualified Code(s): E11.65 - Type 2 diabetes mellitus with hyperglycemia; Z79.4 - terminal superintendent (current) use of insulin Plan: Poorly controlled diabetes mellitus plan on Multiple medicines . Her most recent hemoglobin A1c is 10 which is down from 14. She said that she is struggling to get her supplies as effective mobilities and keep up with her blood sugar. 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 She does have a history of gastroparesis and I think that is all secondary to her diabetes. She will get an upper endoscopy to evaluate her deficiency anemia and her worsening abdominal pain. (3) Constipation: Status: Chronic Qualifiers: Constipation type: slow transit constipation Qualified Code(s): K59.01 - Slow transit constipation Plan: She did try medicines at this time. (4) Dysphagia: Status: Acute Qualifiers: Dysphagia type: esophageal phase Qualified Code(s): R13.19 - Other dysphagia Plan: Likely secondary to erosive esophagitis associated with gastroparesis versus esophageal motility disorder. (5) Functional abdominal pain syndrome: Status: Acute Plan: She does have a functional abdominal pain syndrome associated with her diabetes and stress that worsens her nausea, bloating and abdominal pain. I previously recommended buspirone 5 mg p.o. twice daily to be titrated up to 5 mg p.o. 3 times daily and possibly 10 mg p.o. 3 times daily depending on side effects. Unfortunately she cannot afford the medicine is making her too sleepy so we will stop that medication. We will try antisecretory therapy. We will also perform an upper endoscopy to evaluate upper GI tract.
[2024-12-24 11:28] LABS: Bedside Glucose 191 mg/dL (74-106)
--- NOTE | 2024-12-24 11:30 | IMM_PTH ---
PATIENT: KORI SHEPHERD LOC: EN U#:[id number] AGE/SX: 54/F ROOM: RE12/24/[address]: Dr. Juan Curtis DO : 1970 BED: DIS: 12/24/2024 SPEC #: [id number] RECD: 12/24/24 13:53 STATUS: SANDEEP REQ #: [id number] SALOME: 12/24/24 11:[address]: Juan Curtis DEPT: IMMUNOHISTOCHEMISTRY RECD BY: Rell Chavis ENTERED: 12/24/24 13:53 SP TYPE: IMMUNO OTHR DR: Dr. Migue Silveira DO Tissues: B - Gastric mucous membrane Procedures: H Pylori (initial) PHYSICIAN & INSTITUTION [place] [id number] SPECIMEN INFORMATION: Tissue Source: B- Gastric antrum biopsy Clinical Info: Functional abdominal pain syndrome, gastroparesis, iron deficiency anemia due to chronic blood loss, anemia Specimen Number: [id number] CPT code: 70555 METHODOLOGY: Deparaffinized sections of prefer/formalin-fixed tissue or PAP/DQ stained slides are incubated with monoclonal/polyclonal antibodies/oligonucleotide probes. Localization is made via biotin free immunoperoxidase method. Appropriate controls are performed and reacted as expected. Results on target cell population are indicated in the following table: RESULTS: ANTIBODY / CLONE RESULT Block B H Pylori (polyclonal) negative These tests were developed and their performance characteristics determined by [facility]. They may not have been cleared or approved by the U.S. Food and Drug Administration. The FDA has determined that such clearance or approval is not necessary. The above immunohistochemical/dualISH markers are ordered and reviewed by the Pathologist. INTERPRETATION: B. Gastric antrum, biopsy: Negative for Helicobacter pylori organisms. 12/25/2024
--- NOTE | 2024-12-24 11:30 | EGD_PTH ---
PATIENT: KORI SHEPHERD LOC: EN U#:[id number] AGE/SX: 54/F ROOM: RE12/24/[address]: Dr. Juan Curtis DO : 1970 BED: DIS: 12/24/2024 SPEC #: [id number] RECD: 12/24/24 13:41 STATUS: SANDEEP RENasrin #: [id number] SALOME: 12/24/24 11:[address]: Juan Curtis DEPT: SURGICAL PATHOLOGY RECD BY: Marina Johnson ENTERED: 12/24/24 14:10 SP TYPE: EGD BIOPSY AVA DR: Dr. Migue Silveira DO Tissues: A - Esophagus, NOS B - Gastric mucous membrane Procedures: Special Stain Group I Surgery Specimen Level IV Alcian Blue/PAS (control) HEADER OPERATION: EGD with biopsies PRE-OP DIAGNOSIS: Functional abdominal pain syndrome, gastroparesis, iron deficiency anemia due to chronic blood loss, anemia TISSUE SUBMITTED: A- Distal esophagus biopsy, B- Gastric antrum biopsy MICROSCOPIC DIAGNOSIS A. Distal esophagus, biopsy: A fragment of gastroesophageal mucosa with chronic inflammation. Intestinal metaplasia (goblet cell metaplasia) not identified. See comment. B. Gastric antrum, biopsy: Mild gastritis. See microscopic description and comment. 12/25/2024 COMMENT A. Alcian blue/PAS stain with matched control is used in the evaluation of the specimen. B. The results of immunohistochemistry for Helicobacter pylori will be reported separately ([id number]). MICROSCOPIC DESCRIPTION Slides are reviewed. B. The specimen shows fragments of gastric mucosa with chronic inflammatory cell infiltrates in the lamina propria consisting of lymphocytes and plasma cells, consistent with mild chronic gastritis. GROSS DESCRIPTION A. Received in fixative is one container labeled with the patient's name and designated Distal esophagus biopsy. The specimen consists of one irregular fragment of light foster soft tissue that measures 0.6 x 0.4 x 0.1 cm. The specimen is totally submitted in one cassette. B. Received in fixative is one container labeled with the patient's name and designated Gastric antrum biopsy. The specimen consists of one irregular fragment of light foster soft tissue that measures 0.4 x 0.4 x 0.2 cm. The specimen is totally submitted in one cassette. 12/24/2024 TC:3 CPT:26166u8,60327
--- NOTE | 2024-12-24 11:30 | PCM.PRE.AN2 ---
ASA Classification* ASA Classification ASA Classification: 3 Assessment & Plan Anesthesia* Anesthesia Assessment Anesthesia Assessment: Discussed sedation and/or anesthesia options, risks, benefits, and alternatives with patient/parents/legal guardian/POA. Questions invited. The patient/parents/legal guardian/POA seems to understand and agrees to proceed with anesthesia plan. Reviewed the physical assessment, medical history, allergy history and patient home medications list prior to surgery/procedure/anesthetic and documented any changes. Performed airway and anesthesia risk assessments. Anesthesia Type Anesthesia Type: MAC History Source History Obtained from:: Patient and Chart Anesthesia Focused Assessment* Temperature: 97.2 F Pulse Rate: 89 Blood Pressure: 145/93 Respiratory Rate: 14 Pulse Ox: 100 Oxygen Delivery Method: Room Air Airway Assessment Mouth opens: >3 cm Mallampati Score: II Teeth Condition: Partial (Patient has upper partial. Planning to take that out.) Neck Range of motion (ROM): Limited ROM (Slight decrease in extension) Focused Labs Anesthesia Preop lab: CBC WBC 4.4 K/mm3 (4.4-11.0) 11/26/24 10:17 11/26/24 RBC 4.15 M/mm3 (4.2-5.4) L 11/26/24 10:17 11/26/24 Hgb 12.1 g/dL (12.0-15.0) 11/26/24 10:17 11/26/24 Hct 37.2 % (37-47) 11/26/24 10:17 11/26/24 Plt Count 244 K/mm3 (150-450) 11/26/24 10:17 11/26/24 CHEMISTRY Potassium 4.4 mmol/L (3.5-5.1) 09/25/23 07:25 09/25/23 Sodium 135 mmol/L (136-145) L 09/25/23 07:25 09/25/23 Magnesium 2.0 mg/dL (1.6-2.6) 11/20/23 12:17 11/20/23 Phosphorus 2.9 mg/dL (2.5-4.9) 09/23/23 05:48 09/23/23 BUN 24 mg/dL (7-18) H 09/25/23 07:25 09/25/23 Creatinine 1.03 mg/dL (0.55-1.02) H 09/25/23 07:25 09/25/23 Glucose 276 mg/dL (74-106) H 09/25/23 07:25 09/25/23 POC Glucose 191 mg/dL (74-106) H 12/24/24 10:54 12/24/24 TSH 0.19 uIU/mL (0.358-3.74) L 07/11/23 02:35 07/11/23 COAG PT 11.8 SECONDS (11.7-14.9) 09/23/23 05:48 09/23/23 Urine Test Negative Negative 09/20/23 10:30 09/20/23 Pre-Assessment Diagnosis/Proposed Procedure Planned Operative Procedure(s): EGD Anesthesia History Anesthesia History - cell lead: Anesthesia History - cell lead Hx Hospitalization Yes 12/21/24 12:04 Any Problems With Anesthesia No 12/21/24 12:04 Cholinesterase deficiency No 12/21/24 12:04 You/Your Family Experience No 12/21/24 12:04 fever (hyperthermia) with Relationship Recent Exposure to Contagious No 12/24/24 10:58 Disease Does patient have nerve No 12/21/24 12:04 stimulator Patient instructed to have device shut off --Does patient have Pacemaker No 12/24/24 10:58 or ICD? When Was Last Pacemaker Check QUESTION #4 FULL TEXT: You/Your Family Experience fever (hyperthermia) with Anesthesia Last Oral Intake Last Oral intake: Last Oral Intake NPO since 21:00 12/24/24 10:58 Meds taken in AM with sips of Yes 12/24/24 10:58 water? Meds patient instructed to metoprolol 12/24/24 10:58 take am of surgery PONV PONV - cell lead: PONV - cell lead Female Yes 12/21/24 12:04 HX of Motion Sickness No 12/21/24 12:04 HX of N/V After Surgery No 12/21/24 12:04 Non-Smoker Yes 12/21/24 12:04 Duration of Surgery greater No 12/21/24 12:04 than 60 minutes Number of Risk Factors 2 12/21/24 12:04 PONV Score Moderate Risk 12/21/24 12:04 Height & Weight Height & Weight: Anesthesia: Height & Weight Height 5 ft 9 in 12/24/24 10:58 Weight: 119.7 kg 12/24/24 10:58 Body Mass Index (BMI) 38.9 12/24/24 10:58 Respiratory Assessment Respiratory Assessment - cell lead: Respiratory Tract Infection Hx - cell lead Hx Respiratory Tract Infection No 12/21/24 12:04 STOP Sleep Apnea STOP Sleep Apnea - cell lead: STOP Sleep Apnea - cell lead Hx Hypertension Yes 12/21/24 12:04 Hx Sleep Apnea Yes 12/21/24 12:04 CPAP No 12/21/24 12:04 BIPAP Yes 12/21/24 12:04 Do you snore loudly (louder than talking or can be heard Do you often feel tired/ fatigued/ sleepy during daytime? Has anyone observed you stop breathing during sleep? STOP Results Positive 12/21/24 12:04 QUESTION #5 FULL TEXT : Do you snore loudly (louder than talking or can be heard through closed doors)? 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 Specify any problems Hx of Preganancy in last 3 No 12/21/24 12:04 Months Nurse Filling Out Transfusion VCHRISTIN 12/21/24 12:04 & Questions: Date: 12/21/24 12/21/24 12:04 Time: 12:05 12/21/24 12:04 Patient unable to answer at this time (ie. 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 polyneuropathy Peripheral vascular disease, unspecified Acute hypokalemia Diabetic ketoacidosis associated with type 1 diabetes mellitus Hallux rigidus, right foot Anemia in chronic kidney disease History of gastroscopy Pleural effusion Urinary retention Peripheral edema Thyromegaly LANA (obstructive sleep apnea) Palpitations Neck mass Nasal lesion Lumbar facet arthropathy Lumbar degenerative disc disease Hypersomnia Dilated bile duct Bipolar disorder with moderate depression Chronic diastolic (congestive) heart failure Low back pain Hallux valgus Gastroparesis due to secondary diabetes Diabetic neuropathy Diabetes mellitus with microalbuminuria, with long-term current use of insulin Dyslipidemia Non-alcoholic cirrhosis Pancreatitis Diabetic foot ulcer associated with type 2 diabetes mellitus Acute necrosis of pancreas Gastritis Tubular adenoma of colon COVID Wears glasses Wears partial dentures Depression Anxiety Insulin dependent diabetes mellitus History of renal disease Liver disease Excessive bleeding Dietary restriction Sleep apnea Shortness of breath on exertion History of edema Leg cramps History of cardiac murmur Obesity Mixed hyperlipidemia Benign essential hypertension Stage 3 chronic kidney disease due to type 2 diabetes mellitus Vitamin deficiency GERD (gastroesophageal reflux disease) Hyperlipidemia HTN (hypertension) Migraine Back problem Atrial fibrillation Arthritis Allergies Anemia Home Medications ?Medication ?Instructions ?Recorded ?Last Taken ?Type pantoprazole 40 mg tablet,delayed 40 mg PO DAILY gerd 08/03/22 11/28/23 History release nitroglycerin 0.4 mg sublingual 0.4 mg sublingual Q5M angina 07/10/23 Unknown History tablet bumetanide 1 mg tablet 1 mg PO DAILY diuretic 09/21/23 11/28/23 History acetaminophen 500 mg capsule 1,000 mg PO Q6H PRN pain 09/30/23 11/28/23 History multivitamin (Daily Multi-Vitamin 1 tab PO DAILY 09/30/23 11/28/23 History tablet) docusate sodium 100 mg capsule 100 mg PO TID 11/26/24 Unknown History (Colace) mirtazapine 30 mg tablet 30 mg PO QHS 11/26/24 Unknown History insulin aspart U-100 100 unit/mL 22 unit subcut TID 12/21/24 12/24/24 History (3 mL) subcutaneous pen (Novolog 6 unit FlexPen U-100 Insulin aspart) insulin degludec 100 unit/mL (3 80 unit subcut DAILY 12/21/24 Unknown History mL) subcutaneous pen lovastatin 40 mg tablet 40 mg PO DAILY 12/21/24 Unknown History metoprolol succinate 25 mg capsule 25 mg PO DAILY 12/21/24 12/24/24 06:30 History sprinkle, ext. release 24 hr prochlorperazine maleate 5 mg 5 mg PO BID 12/21/24 Unknown History tablet topiramate 100 mg tablet 100 mg PO BID 12/21/24 Unknown History Allergy/AdvReac Type Severity Reaction Status Date / Time lactase (From Dairy Aid) Allergy Severe diarrhea Verified 12/24/24 10:55 codeine Allergy Intermediate mental Verified 12/24/24 10:55 status diphenhydramine (From Allergy Intermediate mental Verified 12/24/24 10:55 Benadryl Allergy) status quetiapine (From Seroquel) Allergy Intermediate about Verified 12/24/24 10:55 killed me - went into DKA morphine Allergy Other Verified 12/24/24 10:55 Family History Mother Arthritis Depression Diabetes Father Arthritis Cancer Melanoma Diabetes Kidney disease Brother Arthritis Hypoglycemia Grandfather Myocardial infarction Grandmother Diabetes Surgical History History of meniscectomy of right knee History of laparoscopic cholecystectomy History of foot surgery S/P hysterectomy H/O gastric bypass H/O cardiac catheterization Hx of colonoscopy History of hysterectomy History of esophagogastroduodenoscopy (EGD) Social History Smoking Status: Never smoker alcohol intake: current diet: diabetic and lactose free Review of Systems (Anesthesia) ROS Narrative System reviewed and no additional complaints, except as documented.
[2024-12-24] MEDS: proCHLORPERazine 10 MG/2 ML Vial IV (12:09)
--- NOTE | 2024-12-24 12:14 | PCM.POST.ANE ---
Anesthesia: Postop Eval I Current Vital Signs Temperature: 97 F Pulse Rate: 80 Blood Pressure: 142/81 Respiratory Rate: 16 Pulse Ox: 96 Oxygen Delivery Method: Room Air Assessment Airway patent: Yes Spontaneous unlabored respirations: Yes Mental status: Awake and Calm nausea: No Vomiting: No Anesthesia Complication: No Fluid Hydration Crystalloid volume administer (ml): 10 Total IV fluid infused: 10 Progress Note Anesthesia document: Postop Eval 1 completed: Yes
--- NOTE | 2024-12-24 12:15 | POSTOPAN2_ITS ---
Anesthesia Postop Eval I Sum Postop Eval Completion status Anesthesia document: Postop Eval 1 completed: Yes Anesthesia Postop Eval I Summary Anesthesia Postop Eval I Summary: Anesthesia Postop Eval I: Assessment Summary Airway patent Yes 12/24/24 12:15 DRY WALL INSTALLATIONS [email or web address] Spontaneous unlabored Yes 12/24/24 12:15 DRY WALL INSTALLATIONS MECHANIC.[email or web address] respirations Mental status Awake,Calm 12/24/24 12:15 DRY WALL INSTALLATIONS MECHANIC.[email or web address] nausea No 12/24/24 12:15 DRY WALL INSTALLATIONS MECHANIC.[email or web address] Vomiting No 12/24/24 12:15 DRY WALL INSTALLATIONS [email or web address] Anesthesia Postop Eval I: Fluid Summary Crystalloid volume administer 10 12/24/24 12:15 DRY WALL INSTALLATIONS MECHANIC.GDOTT (ml) Colloids volume administered ( ml) Blood Product volume administered (ml) Total IV fluid infused 10 12/24/24 12:15 DRY WALL INSTALLATIONS [email or web address] Anesthesia Postop Eval I: Summary Notes Anesthesia Complication No 12/24/24 12:15 DRY WALL INSTALLATIONS [email or web address] Anesthesia Complication Comment: Post-operative progress note Anesthesia: Postop Eval II Evaluation Mental status: Awake and Calm Pain Level: 0 nausea: No Vomiting: No
--- NOTE | 2024-12-24 12:15 | PCM.POSTANE2 ---
Anesthesia Postop Eval I Sum Postop Eval Completion status Anesthesia document: Postop Eval 1 completed: Yes Anesthesia Postop Eval I Summary Anesthesia Postop Eval I Summary: Anesthesia Postop Eval I: Assessment Summary Airway patent Yes 12/24/24 12:15 [email or web address] Spontaneous unlabored Yes 12/24/24 12:15 CANCER [email or web address] respirations Mental status Awake,Calm 12/24/24 12:15 [email or web address] nausea No 12/24/24 12:15 CANCER [email or web address] Vomiting No 12/24/24 12:15 [email or web address] Anesthesia Postop Eval I: Fluid Summary Crystalloid volume administer 10 12/24/24 12:15 [email or web address] (ml) Colloids volume administered ( ml) Blood Product volume administered (ml) Total IV fluid infused 10 12/24/24 12:15 CANCER [email or web address] Anesthesia Postop Eval I: Summary Notes Anesthesia Complication No 12/24/24 12:15 CANCER [email or web address] Anesthesia Complication Comment: Post-operative progress note Anesthesia: Postop Eval II Evaluation Mental status: Awake and Calm Pain Level: 0 nausea: No Vomiting: No
--- NOTE | 2024-12-24 12:29 | OP.EGD_ITS ---
Patient Name: Janneth Sherwood Procedure Date: 12/24/2024 11:22 AM Date of : 1970 Age: 54 Procedure: Upper GI endoscopy Indications: Epigastric abdominal pain, Heartburn, Esophageal reflux Providers: Juan Curtis DO Referring MD: Migue Silveira Do Medicines: Monitored Anesthesia Care Patient Profile: This is a 54 year old female. Refer to note in patient chart for documentation of history and physical. Patient has symptoms of acute nausea and acute vomiting. Complications: No immediate complications. Procedure: Pre-Anesthesia Assessment: - Prior to the procedure, a History and Physical was performed, and patient medications and allergies were reviewed. The patient is competent. The risks and benefits of the procedure and the sedation options and risks were discussed with the patient. All questions were answered and informed consent was obtained. Patient identification and proposed procedure were verified by the physician in the pre-procedure area. Mental Status Examination: alert and oriented. Airway Examination: normal oropharyngeal airway and neck mobility. Respiratory Examination: clear to auscultation. CV Examination: normal. Prophylactic Antibiotics: The patient does not require prophylactic antibiotics. Prior Anticoagulants: The patient has taken no anticoagulant or antiplatelet agents except for NSAID medication. ASA Grade Assessment: II - A patient with mild systemic disease. After reviewing the risks and benefits, the patient was deemed in satisfactory condition to undergo the procedure. The anesthesia plan was to use monitored anesthesia care (MAC). Immediately prior to administration of medications, the patient was re-assessed for adequacy to receive sedatives. The heart rate, respiratory rate, oxygen saturations, blood pressure, adequacy of pulmonary ventilation, and response to care were monitored throughout the procedure. The physical status of the patient was re-assessed after the procedure. After obtaining informed consent, the endoscope was passed under direct vision. Throughout the procedure, the patient's blood pressure, pulse, and oxygen saturations were monitored continuously. The Endoscope was introduced through the mouth, and advanced to the second part of duodenum. The upper GI endoscopy was accomplished without difficulty. The patient tolerated the procedure well. Scope In: 11:44:18 AM Scope Out: 11:48:30 AM Total Procedure Duration Time 0 hours 4 minutes 12 seconds Findings: LA Grade A (one or more mucosal breaks less than 5 mm, not extending between tops of 2 mucosal folds) esophagitis with no bleeding was found 36 to 40 cm from the incisors. Diffuse mild inflammation characterized by congestion (edema) and erythema was found in the gastric body. Biopsies were taken with a cold forceps for histology. Verification of patient identification for the specimen was done. Biopsies were taken with a cold forceps for Helicobacter pylori testing. Verification of patient identification for the specimen was done. Estimated blood loss was minimal. Patchy moderately erythematous mucosa without active bleeding and with no stigmata of bleeding was found in the first portion of the duodenum. Impression: - LA Grade A reflux esophagitis with no bleeding. - Bile gastritis. Biopsied. - Erythematous duodenopathy. Recommendation: - Discharge patient to home (ambulatory). -Scopolamine patch 1.5 mg every 72 hours - Carafate 1 g 3 times a day - Continue present medications. Procedure Code(s): --- Professional --- 47433, Esophagogastroduodenoscopy, flexible, transoral; with biopsy, single or multiple CPT copyright 2021 [employer]. All rights reserved. The codes documented in this report are preliminary and upon non destructive testing supervisor review may be revised to meet current compliance requirements. Juan Curtis DO 12/24/2024 12:28:48 PM This report has been signed electronically. Number of Addenda: 0 Note Initiated On: 12/24/2024 11:22 AM
--- NOTE | 2024-12-24 12:29 | OP.CCLET_ITS ---
12/25/2024 Migue Silveira Do Re : Upper GI endoscopy procedure for Janneth Sherwood Dear Jordana This procedure was performed on November. My impressions and recommendations are as follows: Impressions : - LA Grade A reflux esophagitis with no bleeding. - Bile gastritis. Biopsied. - Erythematous duodenopathy. Recommendations : - Discharge patient to home (ambulatory). -Scopolamine patch 1.5 mg every 72 hours - Carafate 1 g 3 times a day - Continue present medications. My findings are described in the full procedure note, which is enclosed. If I can be of further assistance, please feel free to contact me at . Sincerely, Juan Curtis, 12/24/2024 12:28:48 PM This report has been signed electronically.
--- NOTE | 2024-12-24 12:34 | PCM.POST.ANE ---
Anesthesia: Postop Eval I Current Vital Signs Temperature: 97 F Pulse Rate: 78 Blood Pressure: 135/79 Respiratory Rate: 16 Pulse Ox: 98 Oxygen Delivery Method: Room Air Assessment Airway patent: Yes Spontaneous unlabored respirations: Yes Mental status: Awake and Calm nausea: No Vomiting: No Anesthesia Complication: No Fluid Hydration Crystalloid volume administer (ml): 30 Total IV fluid infused: 30 Progress Note Anesthesia document: Postop Eval 1 completed: Yes
== END 2024-12-24 12:48 | disposition home or self-care (01) ==
LOC: EN 10:34 → AC 10:39
PROVIDERS: PCP Student in an Organized Health Care Education/Training Program; Referring Provider Student in an Organized Health Care Education/Training Program; Visit Provider Internal Medicine Gastroenterology
PROC: 0DJ08ZZ Inspection of Upper Intestinal Tract, Via Natural or Artificial Opening Endoscopic (ICD-10-PCS; CPT 43235; principal; 2024-12-24 11:25)
DX: K21.00 Gastro-esophageal reflux disease with esophagitis, without bleeding (principal); I13.0 Hypertensive heart and chronic kidney disease with heart failure and stage 1 through stage 4 chronic kidney disease, or unspecified chronic kidney disease; I50.32 Chronic diastolic (congestive) heart failure; K86.1 Other chronic pancreatitis; Z79.4 Long term (current) use of insulin; E11.65 Type 2 diabetes mellitus with hyperglycemia; E11.22 Type 2 diabetes mellitus with diabetic chronic kidney disease; E11.43 Type 2 diabetes mellitus with diabetic autonomic (poly)neuropathy; E11.42 Type 2 diabetes mellitus with diabetic polyneuropathy; E11.51 Type 2 diabetes mellitus with diabetic peripheral angiopathy without gangrene; N18.30 Chronic kidney disease, stage 3 unspecified; K31.84 Gastroparesis; K29.60 Other gastritis without bleeding; K31.89 Other diseases of stomach and duodenum; K85.80 Other acute pancreatitis without necrosis or infection; K59.01 Slow transit constipation; D50.0 Iron deficiency anemia secondary to blood loss (chronic); D63.1 Anemia in chronic kidney disease; E78.2 Mixed hyperlipidemia; G47.33 Obstructive sleep apnea (adult) (pediatric); R13.19 Other dysphagia; Z79.899 Other long term (current) drug therapy; Z86.16 Personal history of COVID-19
CPT/HCPCS: 43239; 82962; 88305; 88312; 88342; A4216

== ENCOUNTER 2025-01-14 17:38 | Emergency (ER) | payer BC, SELFPAY ==
[2025-01-14 17:40] VITALS: BP 167/90; PULSE 88; RESP 16; TEMP 36.7; O2SAT 100; BMI 38.4
--- NOTE | 2025-01-14 17:57 | EX.ED.DYSGE1 ---
HPI History of Present Illness Chief Complaint: Hyperglycemia Detail of Chief Complaint: Patient was sent in by Dr. Curtis for evaluation. Informant: patient Onset/Context/Timing Onset: - (Told labs abnormal and needed to be assessed) Context: - (Unknown) Timing: - (Unknown) Quality: Elevated blood sugar and other abnormal labs Location: Endocrine Current Severity: Moderate Maximum Severity: Moderate Worsened by: Nothing Relieved by: Nothing Associated Symptoms Associated Symptoms: Thirst, dry mouth and bilateral blurred vision Narrative Narrative: Patient is a 54-year-old woman with a BMI of 38.4. She has history of diabetic neuropathy due to type 1 diabetes, anemia, stage III chronic kidney disease due to type 2 diabetes, pancreatitis and dysphagia. She was sent in because of blood sugar greater than 500. She denies fever, chills night sweats. She does endorse bilateral blurred vision. Eyes double vision or loss of vision. She denies trouble with speech or swallowing. She denies paresthesia, anesthesia motors. She denies problems with balance or coordination. Patient does endorse shortness of breath and chest discomfort with walking that resolves after 10 minutes of rest. Patient is very vague as far as the frequency. She initially states it happens a blue pan . Upon further questioning patient admitted she had an episode yesterday with walking. This has been going on for a couple of months. Patient denies nausea, vomiting or diarrhea. Patient [place] black or maroon-colored stool. Prior similar symptoms: Yes (With respect to the elevated blood sugar not the chest discomfort described) Recent Illness/Hospital[facility]: [facility] Medical History Cardiology follow-up encounter Iron deficiency anemia due to chronic blood loss Open wound Low iron High cholesterol Easy bruising Gastric reflux Non-smoker History of echocardiogram Bleeding tendency Back pain due to injury History of stress test Osteoarthritis of right foot Non-pressure chronic ulcer of other part of right foot with fat layer exposed Type 2 diabetes mellitus with diabetic polyneuropathy Peripheral vascular disease, unspecified Acute hypokalemia Diabetic ketoacidosis associated with type 1 diabetes mellitus Hallux rigidus, right foot Anemia in chronic kidney disease History of gastroscopy Pleural effusion Urinary retention Peripheral edema Thyromegaly LANA (obstructive sleep apnea) Palpitations Neck mass Nasal lesion Lumbar facet arthropathy Lumbar degenerative disc disease Hypersomnia Dilated bile duct Bipolar disorder with moderate depression Chronic diastolic (congestive) heart failure Low back pain Hallux valgus Gastroparesis due to secondary diabetes Diabetic neuropathy Diabetes mellitus with microalbuminuria, with long-term current use of insulin Dyslipidemia Non-alcoholic cirrhosis Pancreatitis Diabetic foot ulcer associated with type 2 diabetes mellitus Acute necrosis of pancreas Gastritis Tubular adenoma of colon COVID Wears glasses Wears partial dentures Depression Anxiety Insulin dependent diabetes mellitus History of renal disease Liver disease Excessive bleeding Dietary restriction Sleep apnea Shortness of breath on exertion History of edema Leg cramps History of cardiac murmur Obesity Mixed hyperlipidemia Benign essential hypertension Stage 3 chronic kidney disease due to type 2 diabetes mellitus Vitamin deficiency GERD (gastroesophageal reflux disease) Hyperlipidemia HTN (hypertension) Migraine Back problem Atrial fibrillation Arthritis Allergies Anemia Home Medications ?Medication ?Instructions ?Recorded ?Last Taken ?Type pantoprazole 40 mg tablet,delayed 40 mg PO DAILY gerd 08/03/22 11/28/23 History release nitroglycerin 0.4 mg sublingual 0.4 mg sublingual Q5M angina 07/10/23 Unknown History tablet bumetanide 1 mg tablet 1 mg PO DAILY diuretic 09/21/23 11/28/23 History acetaminophen 500 mg capsule 1,000 mg PO Q6H PRN pain 09/30/23 11/28/23 History multivitamin (Daily Multi-Vitamin 1 tab PO DAILY 09/30/23 11/28/23 History tablet) docusate sodium 100 mg capsule 100 mg PO DAILY 11/26/24 Unknown History (Colace) mirtazapine 30 mg tablet 30 mg PO QHS 11/26/24 Unknown History insulin aspart U-100 100 unit/mL 22 unit subcut TID 12/21/24 12/24/24 History (3 mL) subcutaneous pen (Novolog 6 unit FlexPen U-100 Insulin aspart) insulin degludec 100 unit/mL (3 80 unit subcut DAILY 12/21/24 Unknown History mL) subcutaneous pen lovastatin 40 mg tablet 40 mg PO DAILY 12/21/24 Unknown History metoprolol succinate 25 mg capsule 25 mg PO DAILY 12/21/24 12/24/24 06:30 History sprinkle, ext. release 24 hr prochlorperazine maleate 5 mg 5 mg PO BID 12/21/24 Unknown History tablet topiramate 100 mg tablet 100 mg PO BID 12/21/24 Unknown History scopolamine base 1 mg over 3 days 1 patch transdermal Q3D #10 ea 12/24/24 Unknown Rx transdermal patch lidocaine 5 % topical patch 1 patch topical Q12H PRN 01/14/25 Unknown History Allergy/AdvReac Type Severity Reaction Status Date / Time lactase (From [employer]) Allergy Severe diarrhea Verified 01/14/25 17:41 codeine Allergy Intermediate mental Verified 01/14/25 17:41 status diphenhydramine (From Allergy Intermediate mental Verified 01/14/25 17:41 Benadryl Allergy) status quetiapine (From Seroquel) Allergy Intermediate about Verified 01/14/25 17:41 killed me - went into DKA morphine Allergy Other Verified 01/14/25 17:41 Family History Mother Arthritis Depression Diabetes Father Arthritis Cancer Melanoma Diabetes Kidney disease Brother Arthritis Hypoglycemia Grandfather Myocardial infarction Grandmother Diabetes Surgical History History of meniscectomy of right knee History of laparoscopic cholecystectomy History of foot surgery S/P hysterectomy H/O gastric bypass H/O cardiac catheterization Hx of colonoscopy History of hysterectomy History of esophagogastroduodenoscopy (EGD) Social History household members: none Smoking Status: Never smoker alcohol intake: current diet: diabetic and lactose free ROS ROS ED Constitutional Constitutional ED: Denies chills, fever(s), subjective or sweats Eyes Eyes: Reports blurry vision bilateral; Denies change in vision ENT ENT ED: Reports other Details: Endorses thirst and dry mouth ; Denies ear pain, rhinorrhea or sore throat Cardiovascular Cardiovascular: Reports chest pain; Denies orthopnea, palpitations, paroxysmal nocturnal dyspnea or racing heartbeat Respiratory/Chest Respiratory/Chest: Reports dyspnea on exertion; Denies cough, dyspnea, orthopnea, paroxysmal nocturnal dyspnea or sputum Gastrointestinal Gastrointestinal: Denies abdominal pain, diarrhea, nausea or vomiting Genitourinary Genitourinary ED: Denies dysuria, hematuria or urinary frequency Musculoskeletal Musculoskeletal: Denies arthralgias or myalgias Integumentary Denies rash Neurologic Neurologic: Reports weakness; Denies headache(s) or paresthesias Endocrine Endocrinology: Denies cold intolerance or heat intolerance Hematologic/Lymphatic Hematologic/Lymphatic: Reports systems reviewed and no addt'l complaints, except as documented EXAM Physical Exam Const Vital Signs: 01/14/25 17:40 01/14/25 18:05 01/14/25 19:00 Temperature 98.1 F Temperature Source Temporal Pulse Rate 88 75 Respiratory Rate 16 18 Respiratory Effort Normal Non-Labored Respiratory Pattern Normal Blood Pressure 167/90 H 148/89 H Blood Pressure Mean 115 108 Pulse Ox 100 99 Oxygen Delivery Method Room Air Room Air 01/14/25 21:00 01/14/25 23:00 Temperature Temperature Source Pulse Rate 76 75 Respiratory Rate 18 14 Respiratory Effort Respiratory Pattern Blood Pressure 136/85 H 104/69 Blood Pressure Mean 102 80 Pulse Ox 100 98 Oxygen Delivery Method Room Air Room Air Positive well nourished and well developed General Appearance ED: well developed, NAD and pallor HEENT Reports dry mucous membranes Mouth ED: Yes dry mucous membranes Mouth: dry mucous membranes Eyes PERRL and EOMs intact bilaterally General Eye ED: Negative for pale conjunctiva or scleral icterus Neck no lymphadenopathy, supple and no JVD Resp normal respiratory effort and clear to auscultation bilaterally Cardio regular rate, regular rhythm, S1 normal heart sound, S2 normal heart sound and no murmurs GI normal to inspection, nondistended, normoactive bowel sounds, non-tender, non-distended and no masses; Negative for hepatosplenomegaly Back/Spine no CVA tenderness Extremity Negative for normal to inspection General Extremety ED: Yes edema; Negative for tenderness General Extremity: edema Neuro oriented x3, CN's II-XII intact bilaterally and no sensory deficits noted Sensorium / Orientation: alert Motor Exam: strength 5/5 throughout Psych mental status grossly normal Skin no rashes or lesions noted, no wounds and skin turgor normal General Skin Exam: elasticity normal and pallor; Negative for jaundice MDM MDM MDM Narrative Medical decision making narrative: Patient with symptoms of hypoglycemia. Will obtain competence of metabolic panel assess renal function since she has stage III kidney disease as well as CO2 anion gap and glucose. Electrolytes to determine if she has hyperkalemia or hyponatremia. CBC to assess H&H and she appears pale. Because of the exertional dyspnea and chest tightness EKG was obtained as well as troponin levels. History & Record Review Additional record(s) reviewed:: Prior outpatient record (Patient had an EGD due to anemia. EGD was performed December 25, 2024. It revealed LA grade a reflux esophagitis with no bleeding, bile gastritis, which was biopsied, and erythematous duodenopathy.) Lab Data Attestation: I reviewed the patient's lab results. Lab results narrative: CBC reveals mild anemia 11.5 and 35.8. Indices are normal. Competence metabolic panel is remarked for glucose of 696 with a normal CO2 anion gap. Creatinine is elevated 1.45 with an estimated GFR of 43. Most recent creatinine was September 25, 2023 and creatinine was 1.03. 2-hour troponin is 13 with a delta of -2. Urinalysis is unremarkable. There is glucose which is expected. Labs: Laboratory Results - last 24 hr 01/14/25 01/14/25 01/14/25 17:52 18:02 20:33 WBC 4.7 RBC 3.90 L Hgb 11.5 L Hct 35.8 L MCV 91.8 MCH 29.5 MCHC 32.1 RDW Std Deviation 43.4 RDW Coeff of Ilene 13.0 Plt Count 228 MPV 11.7 Immature Gran % (Auto) 0.400 Neut % (Auto) 63.1 Lymph % (Auto) 29.5 Howard % (Auto) 4.0 Eos % (Auto) 1.9 Baso % (Auto) 1.1 H Absolute Neuts (auto) 3.0 Absolute Lymphs (auto) 1.40 Nucleated RBC % 0 Sodium 132 L Potassium 4.4 Chloride 98 Carbon Dioxide 22.3 Anion Gap 11 BUN 18 Creatinine 1.45 H Estim Creat Clear Calc 61.55 Est GFR (MDRD) Non-Af 43 L BUN/Creatinine Ratio 12.3 Glucose 696 H* Calcium 8.6 Total Bilirubin 0.34 AST 17 ALT 12 Alkaline Phosphatase 168 H Troponin T High Sens 15 H Troponin T Hi Sens 2 Hr 13 Total Protein 7.2 Albumin 3.8 Globulin 3.4 Albumin/Globulin Ratio 1.1 Urine Color Urine Clarity Urine pH Ur Specific [place] Urine Protein Urine Glucose (UA) Urine Ketones Urine Occult Blood Urine Nitrite Urine Bilirubin Urine Urobilinogen Ur Leukocyte Esterase Urine RBC Urine WBC Ur Squamous Epith Cells Urine Bacteria Urine Mucus POC Glucose > 500 H* 01/14/25 21:30 WBC RBC Hgb Hct MCV MCH MCHC RDW Std Deviation RDW Coeff of [place] Plt Count MPV Immature Gran % (Auto) Neut % (Auto) Lymph % (Auto) Howard % (Auto) Eos % (Auto) Baso % (Auto) Absolute Neuts (auto) Absolute Lymphs (auto) Nucleated RBC % Sodium Potassium Chloride Carbon Dioxide Anion Gap BUN Creatinine Estim Creat Clear Calc Est GFR (MDRD) Non-Af BUN/Creatinine Ratio Glucose Calcium Total Bilirubin AST ALT Alkaline Phosphatase Troponin T High Sens Troponin T Hi Sens 2 Hr Total Protein Albumin Globulin Albumin/Globulin Ratio Urine Color Yellow Urine Clarity Clear Urine pH 7.0 Ur Specific [place] 1.010 Urine Protein Negative Urine Glucose (UA) 1000 H Urine Ketones Negative Urine Occult Blood 10 H Urine Nitrite Negative Urine Bilirubin Negative Urine Urobilinogen Normal Ur Leukocyte Esterase Negative Urine RBC 0-5 SEEN Urine WBC 0-5 SEEN Ur Squamous Epith Cells 0-5 SEEN Urine Bacteria 0 SEEN Urine Mucus 0 SEEN POC Glucose EKG Initial EKG: Attestation: I personally reviewed and interpreted this EKG as follows: Interpretation: Sinus Rhythm (Rate is 79. MT interval is 202 ms. Cures duration 94 ms. QT duration 196 ms. [place] is normal. There is decreased anterior force. This could represent prior ischemia.) Management Discussion w/another healthcare provider: Circular Sawyer Stone (Spoke to Dr. Estrada. He saw patient. Patient reports she had a clean cath. Unable to obtain cath report from [facility]'s as outpatient and extruding department supervisor only has access to inpatient records. Patient's delta is a -2. Since this has been going on for 6 months plan is for her to follow-up with ) Treatment and Re-Evaluation :: Repeat blood sugars 365. Second dose of insulin was decreased from 15 units to 5 units. She will be discharged home to follow-up with her oracle ebs developer. Discharge Plan Triage Chief Complaint: Hyperglycemia ED Provider: Srinivasa Rivera Dx/Rx/DC Orders Clinical Impression: Coronary artery disease with exertional angina, Primary osteoarthritis, Stage 3 chronic kidney disease due to type 2 diabetes mellitus, Gastroparesis, Controlled type 1 diabetes mellitus with hyperglycemia, with long-term current use of insulin, Anemia, chronic disease, Chronic stable angina Instructions: ED Angina, Stable, ED Diabetic Hyperglycemia Prescriptions: No Action docusate sodium [Colace] 100 mg capsule 100 mg PO DAILY mirtazapine 30 mg tablet 30 mg PO QHS pantoprazole 40 mg Tablet,Delayed Release (Dr/Ec) 40 mg PO DAILY bumetanide 1 mg tablet 1 mg PO DAILY multivitamin [Daily Multi-Vitamin] Tablet 1 tab PO DAILY acetaminophen 500 mg capsule 1,000 mg PO Q6H PRN (Reason: pain) nitroglycerin 0.4 mg tablet, sublingual 0.4 mg sublingual Q5M Rx Instructions: do not exceed 3 doses per episode lidocaine 5 % adhesive patch,medicated 1 patch topical Q12H PRN Rx Instructions: leave on most painful area for up to 12 hrs insulin aspart U-100 [Novolog FlexPen U-100 Insulin] 100 unit/mL (3 mL) insulin pen 22 unit subcut TID insulin degludec 100 unit/mL (3 mL) insulin pen 80 unit subcut DAILY metoprolol succinate 25 mg capsule,sprinkle,ER 24hr 25 mg PO DAILY lovastatin 40 mg tablet 40 mg PO DAILY topiramate 100 mg tablet 100 mg PO BID prochlorperazine maleate 5 mg tablet 5 mg PO BID Patient Comments: [NO ORIGINAL SIG] scopolamine base 1 mg over 3 days patch 3 day 1 patch transdermal Q3D Qty: 10 0RF Primary Care Provider: Migue Silveira Referrals: Migue Silveira DO [Primary Care Provider] - 3-5 Days Activity Restrictions/Additional Instructions: You need to contact your [facility] ebs developer at [facility] for outpatient workup of your stable angina. Print Language: Japanese Disposition Disposition: Home, Self Care
[2025-01-14 18:10] LABS: Bedside Glucose > 500 mg/dL (74-106)
[2025-01-14] MEDS: 0.9% Normal Saline (1000mL) 1,000 ML 1000 ML IV (18:10)
[2025-01-14 18:11] LABS: Basophil# 0.05 X10^3/uL; Basophil% 1.1 % (0-1); Eosinophil# 0.09 X10^3/uL; Eosinophils% 1.9 % (0-5); Hematocrit 35.8 % (37-47); Hemoglobin 11.5 g/dL (12.0-15.0); Lymphocyte % 29.5 % (19-41); Mean Corp Hgb Conc 32.1 g/dL (32-36); Mean Corpuscular Hgb 29.5 pg (27.0-32.0); Mean Corpuscular Volume 91.8 fL (81-99); Mean Platelet Vol. 11.7 fl (6.2-12.0); Monocyte# 0.19 X10^3/uL; NRBC Flagged by Analyzer 0 % (0-5); Neutrophil # 2.99 X10^3/uL (2.7-7.7); Neutrophil % 63.1 % (47-70); Platelet Count 228 K/mm3 (150-450); RBC Distribution Width SD 43.4 fl (35.1-43.9); White Blood Count 4.7 K/mm3 (4.4-11.0)
--- NOTE | 2025-01-14 18:14 | EKG12_ITS ---
Test Reason : HYPERGLYCEMIA Blood Pressure : */* mmHG Vent. Rate : 79 BPM Atrial Rate : 79 BPM P-R Int : 202 ms QRS Dur : 94 ms QT Int : 396 ms P-R-T Axes : 37 -17 48 degrees QTcB Int : 454 ms Normal sinus rhythm Cannot rule out Anterior infarct , age undetermined Abnormal ECG Confirmed by ABUNDIO CORDOVA, VANDANA ([id number]), proposal editor ERI OLMEDO ([id number]) on 01/15/2025 8:07:53 AM Referred By: Srinivasa Rivera Confirmed By: VANDANA DEL CASTILLO MD
[2025-01-14] MEDS: Aspirin 81 MG TAB.CHEW 324 MG PO (18:39)
[2025-01-14 18:46] LABS: ALB/GLOB Ratio 1.1 RATIO (0.9-2.4); AST(SGOT) 17 U/L (<=31); Alanine Aminotransfer ALT/SGPT 12 U/L (<=34); Albumin, Serum 3.8 g/dL (3.5-5.0); Alkaline Phosphatase 168 U/L (35-104); Anion Gap 11 (5-15); BUN 18 mg/dL (4-19); BUN/Creat Ratio 12.3 RATIO (10-20); Calcium,Total 8.6 mg/dL (7.6-11.0); Carbon Dioxide 22.3 mmol/L (21.0-32.0); Chloride 98 mmol/L (98-108); Creatinine, Serum 1.45 mg/dL (0.70-1.20); EST Glomerular Filtration Rate 43 (>60); Estimated Creatinine Clearance 61.55 ml/min (50-250); Globulin 3.4 g/dL (2.2-4.2); Glucose 696 mg/dL (70-99); Potassium 4.4 mmol/L (3.3-5.1); Protein, Total 7.2 g/dL (5.9-8.4); Sodium Level 132 mmol/L (133-145); Total Bilirubin 0.34 mg/dL (0.00-1.30)
[2025-01-14 18:53] LABS: Troponin T High Sensitivity 15 ng/L (<=14)
[2025-01-14 19:00] VITALS: BP 148/89; PULSE 75; RESP 18; O2SAT 99
[2025-01-14] MEDS: Insulin Lispro 100 UNIT/ML INSULN.PEN 15 UNIT SC (19:00)
[2025-01-14 20:56] LABS: Troponin T High Sens 2 HR 13 ng/L (<=14)
[2025-01-14 21:00] VITALS: BP 136/85; PULSE 76; RESP 18; O2SAT 100
[2025-01-14 21:36] LABS: Bacteria 0 SEEN /hpf (None Seen); Mucous, Urine 0 SEEN /hpf (<or=2+)
[2025-01-14 21:40] LABS: Color, Urine Yellow (Yellow); Glucose, Dipstick 1000 mg/dl (Normal); Ketone-Dipstick Negative (Negative); Leukocyte Esterase-Dipstick Negative /ul (Negative); Nitrite-Dipstick Negative (Negative); Occult Blood-Urine 10 /ul (Negative); Protein-Dipstick Negative (Negative); Urine Bilirubin Dipstick Negative (Negative); Urine Clarity Clear (Clear); Urine Urobilinogen Normal (Normal)
[2025-01-14 21:56] LABS: White Blood Cells 0-5 SEEN /hpf (0-5)
[2025-01-14 21:57] LABS: Red Blood Cells-Urine 0-5 SEEN /hpf (0-5); Squamous Epithelial Cells - UA 0-5 SEEN /hpf (5-10)
[2025-01-14 23:00] VITALS: BP 104/69; PULSE 75; RESP 14; O2SAT 98
[2025-01-14] MEDS: Insulin Lispro 100 UNIT/ML INSULN.PEN SC (23:25)
[2025-01-14 23:30] VITALS: BP 111/72; PULSE 75; RESP 18; TEMP 36.8; O2SAT 98
[2025-01-14 23:38] LABS: Bedside Glucose 365 mg/dL (74-106)
[2025-01-14 23:38] LABS: Troponin T High Sens 4 HR 14 ng/L (<=14)
--- NOTE | 2025-01-15 00:15 | ED.RN ---
[employer] EXTRAC[employer] TECHNICIAN WHO IS IN CHARGE OF ONLY INPAITENT MEDICAL RECORDS CALLED AND CONFIRMED THAT PT HAD A PROCEDURE DONE, HOWEVER, SHE IS UNABLE TO ACCESS IT. ON DAY SHIFT, SOMEONE COULD GET IT, BUT NOT TONIGHT.
[2025-01-15 07:38] LABS: Bedside Glucose > 500 mg/dL (74-106)
== END 2025-01-14 23:39 | disposition home or self-care (01) ==
PROVIDERS: Emergency Provider Emergency Medicine; PCP Student in an Organized Health Care Education/Training Program; Referring Provider Emergency Medicine; Visit Provider Emergency Medicine
DX: E10.65 Type 1 diabetes mellitus with hyperglycemia (principal); I50.32 Chronic diastolic (congestive) heart failure; I13.0 Hypertensive heart and chronic kidney disease with heart failure and stage 1 through stage 4 chronic kidney disease, or unspecified chronic kidney disease; I25.110 Atherosclerotic heart disease of native coronary artery with unstable angina pectoris; E10.649 Type 1 diabetes mellitus with hypoglycemia without coma; E10.22 Type 1 diabetes mellitus with diabetic chronic kidney disease; Z79.4 Long term (current) use of insulin; E10.43 Type 1 diabetes mellitus with diabetic autonomic (poly)neuropathy; N18.30 Chronic kidney disease, stage 3 unspecified; E78.2 Mixed hyperlipidemia; Z90.710 Acquired absence of both cervix and uterus; Z79.01 Long term (current) use of anticoagulants; D63.1 Anemia in chronic kidney disease; M19.90 Unspecified osteoarthritis, unspecified site; K31.84 Gastroparesis; K21.9 Gastro-esophageal reflux disease without esophagitis; Z79.899 Other long term (current) drug therapy; Z90.49 Acquired absence of other specified parts of digestive tract
CPT/HCPCS: 80053; 81001; 82962; 84484; 85025; 93005; 96360; 96361; 99284; A4216

== ENCOUNTER → 2025-01-14 | Outpatient (CLI) | payer BC, SELFPAY ==
[2025-01-14 11:43] LABS: Absolute Lymphocyte Count 1.96 X10^3/uL (0.83-4.51); Absolute Neutrophil Count 3.9 X10^3/uL (2.0-7.7); Basophil# 0.05 X10^3/uL; Basophil% 0.8 % (0-1); Eosinophil# 0.15 X10^3/uL; Eosinophils% 2.3 % (0-5); Hematocrit 36.5 % (37-47); Hemoglobin 11.6 g/dL (12.0-15.0); Lymphocyte # 1.96 X10^3/ul (0.83-4.51); Lymphocyte % 30.3 % (19-41); Mean Corp Hgb Conc 31.8 g/dL (32-36); Mean Corpuscular Volume 91.3 fL (81-99); Mean Platelet Vol. 11.7 fl (6.2-12.0); Monocyte# 0.35 X10^3/uL; Monocyte% 5.4 % (0-10); NRBC Flagged by Analyzer 0 % (0-5); Neutrophil # 3.94 X10^3/uL (2.7-7.7); Neutrophil % 60.9 % (47-70); Platelet Count 246 K/mm3 (150-450); RBC Distribution Width CV 12.9 % (11.6-14.6); RBC Distribution Width SD 42.9 fl (35.1-43.9); White Blood Count 6.5 K/mm3 (4.4-11.0)
[2025-01-14 11:46] LABS: Erythrocyte Sedimentation Rate 24 mm/hr (0-30)
[2025-01-14 15:00] LABS: Amylase 31 U/L (28-100); CRP 7.94 mg/L (0.0-3.0); LDH 240 U/L (84-246); Lipase 24 U/L (13-75)
[2025-01-14 15:14] LABS: ALB/GLOB Ratio 1.1 RATIO (0.9-2.4); AST(SGOT) 19 U/L (<=31); Alanine Aminotransfer ALT/SGPT 12 U/L (<=34); Albumin, Serum 3.9 g/dL (3.5-5.0); Alkaline Phosphatase 169 U/L (35-104); Anion Gap 11 (5-15); BUN 17 mg/dL (4-19); BUN/Creat Ratio 11.2 RATIO (10-20); Calcium,Total 8.9 mg/dL (7.6-11.0); Carbon Dioxide 21.7 mmol/L (21.0-32.0); Chloride 100 mmol/L (98-108); Creatinine, Serum 1.47 mg/dL (0.70-1.20); EST Glomerular Filtration Rate 42 (>60); Globulin 3.5 g/dL (2.2-4.2); Glucose 516 mg/dL (70-99); Protein, Total 7.4 g/dL (5.9-8.4); Sodium Level 133 mmol/L (133-145); Total Bilirubin 0.29 mg/dL (0.00-1.30)
== END | disposition home or self-care (01) ==
LOC: LAB 10:54
PROVIDERS: PCP Student in an Organized Health Care Education/Training Program; Referring Provider Internal Medicine Gastroenterology; Visit Provider Internal Medicine Gastroenterology
DX: R10.9 Unspecified abdominal pain (principal); R11.10 Vomiting, unspecified
CPT/HCPCS: 36415; 80053; 82150; 83615; 83690; 85025; 85652; 86140

== ENCOUNTER → 2025-03-24 | Outpatient (CLI) | payer BC, SELFPAY ==
[2025-03-24 17:15] LABS: Absolute Lymphocyte Count 2.53 X10^3/uL (0.83-4.51); Absolute Neutrophil Count 3.8 X10^3/uL (2.0-7.7); Basophil# 0.07 X10^3/uL; Eosinophil# 0.14 X10^3/uL; Hematocrit 35.8 % (37-47); Hemoglobin 11.4 g/dL (12.0-15.0); Lymphocyte # 2.53 X10^3/ul (0.83-4.51); Lymphocyte % 36.9 % (19-41); Mean Corp Hgb Conc 31.8 g/dL (32-36); Mean Corpuscular Hgb 29.8 pg (27.0-32.0); Mean Corpuscular Volume 93.5 fL (81-99); Mean Platelet Vol. 11.2 fl (6.2-12.0); Monocyte% 4.4 % (0-10); NRBC Flagged by Analyzer 0 % (0-5); Neutrophil # 3.79 X10^3/uL (2.7-7.7); Neutrophil % 55.4 % (47-70); Platelet Count 257 K/mm3 (150-450); RBC Distribution Width SD 44.8 fl (35.1-43.9); Red Blood Count 3.83 M/mm3 (4.2-5.4); White Blood Count 6.9 K/mm3 (4.4-11.0)
[2025-03-24 17:56] LABS: ALB/GLOB Ratio 1.2 RATIO (0.9-2.4); AST(SGOT) 18 U/L (<=31); Alanine Aminotransfer ALT/SGPT 12 U/L (<=34); Albumin, Serum 4.1 g/dL (3.5-5.0); Alkaline Phosphatase 148 U/L (35-104); Anion Gap 11 (5-15); BUN 24 mg/dL (4-19); BUN/Creat Ratio 20.9 RATIO (10-20); Calcium,Total 9.5 mg/dL (7.6-11.0); Carbon Dioxide 23.1 mmol/L (21.0-32.0); Chloride 109 mmol/L (98-108); Creatinine, Serum 1.14 mg/dL (0.70-1.20); EST Glomerular Filtration Rate 58 (>60); Globulin 3.5 g/dL (2.2-4.2); Glucose 154 mg/dL (70-99); Lipase 13 U/L (13-75); Protein, Total 7.6 g/dL (5.9-8.4); Sodium Level 143 mmol/L (133-145); Total Bilirubin 0.26 mg/dL (0.00-1.30)
== END | disposition home or self-care (01) ==
LOC: LAB 16:29
PROVIDERS: PCP Student in an Organized Health Care Education/Training Program; Referring Provider Student in an Organized Health Care Education/Training Program; Visit Provider Student in an Organized Health Care Education/Training Program
DX: R11.2 Nausea with vomiting, unspecified (principal)
CPT/HCPCS: 36415; 80053; 83690; 85025